=== PATIENT | male | born 1940 | race Caucasian/White ===

== ENCOUNTER 2019-12-06 03:09 | Outpatient (CLI) | payer MEDICARE, SELFPAY ==
[2019-12-07 14:41] LABS: SARS-CoV-2 RNA PCR Negative
== END 2019-12-06 03:10 | disposition home or self-care (01) ==
LOC: ANHCOVIDDT 03:09
PROVIDERS: PCP Family Medicine; Visit Provider Internal Medicine Gastroenterology
DX: Z01.818 Encounter for other preprocedural examination (principal); Z11.59 Encounter for screening for other viral diseases
CPT/HCPCS: 87635; C9803; U0003

== ENCOUNTER 2019-12-08 02:51 | Day surgery (SDC) | payer MEDICARE, SELFPAY ==
[2019-12-01 12:00] VITALS: BMI 31.8
[2019-12-08 08:45] VITALS: BP 177/75; PULSE 69; RESP 20; TEMP 36.4; O2SAT 100
[2019-12-08] MEDS: LACTATED RINGERS 1,000 ML 150 ML IV CONT (08:52)
--- NOTE | 2019-12-08 09:08 | WPDANESEPPF ---
Anes - Initial Pre Proc Eval Procedure: Operation Date: 12/08/19 09:00 Proposed Procedures p Esophagogastroduodenoscopy - Carlo Martinez DO Date/Time: 12/08/19 09:08 Surgeon: Carlo Martinez DO Pre Op Diagnosis: dysphagia Patient Data Age: 79 Gender: M Height: 5 ft 5 in Weight: 84 kg Last Vital Signs Temp 97.6 F 12/08/19 08:45 Pulse 69 12/08/19 08:45 Resp 20 12/08/19 08:45 BP 177/75 H 12/08/19 08:45 Pulse Ox 100 12/08/19 08:45 Allergies Allergy/AdvReac Type Severity Reaction Status Date / Time morphine Allergy Unknown Unknown Verified 12/08/19 09:00 Home Medications Medication Instructions Recorded Confirmed Type aspirin 81 mg tablet,delayed 81 mg PO DAILY 03/23/19 12/01/19 History release carbamazepine 200 mg 200 mg PO Q12H 03/23/19 12/08/19 History capsule,extended release [id number] docusate sodium 100 mg capsule 200 mg PO HS 03/23/19 12/01/19 History levothyroxine 50 mcg tablet 50 mcg PO DAILY 03/23/19 12/01/19 History pantoprazole 40 mg tablet,delayed 40 mg PO QAM 03/23/19 12/01/19 History release albuterol sulfate 90 mcg/actuation 2 inhalation INHALATION Q4H PRN 05/23/19 12/01/19 Rx aerosol inhaler #18 gm budesonide-formoterol HFA 160 2 puff INHALATION Q12H 09/20/19 12/01/19 History mcg-4.5 mcg/actuation aerosol inhaler hydroxychloroquine 200 mg tablet 400 mg PO DAILY #60 tablet 11/18/19 12/01/19 Rx ropinirole See Rx Instructions .ROUTE .COMPLEX 12/01/19 12/01/19 History Patient hx anesthesia problems: none Family hx anesthesia problems: none PMFSH Social History Social History Social History: Smoking status: Former smoker Tobacco type: cigars Smoking end date: 05/11/14 Alcohol intake: never Anes - Eval Final PreProcedure Day of Procedure 12/08/19 09:08 Patient weight: overweight Heart: regular rate and rhythm Lungs: clear to auscultation Airway: Mallampati scale class III Neurological: alert and oriented Last oral intake: >/= 8 hours ASA classification: III Emergent: no Anesthetic plan: proceed Anesthesia type and monitoring: general GIVS and standard monitoring Informed Consent: The patient's anesthetic plan and its attendant risks and benefits were discussed with the patient/family/POA. Questions were solicited and answers provided to the satisfaction of the patient/family/POA.
--- NOTE | 2019-12-08 09:22 | P.HP_ITS ---
H&P: HPI History of Present Illness Chief complaint: dysphagia Narrative: Reason for visit EGD. This very pleasant gentleman seen in consultation request of the primary physician. Impression: very pleasant gentleman with a history of reflux disease. He is status post Osvaldo fundoplication. He has developed a cough after intake of solids. He is here for endoscopic evaluation to assess for underlying ring or stricture. MADDIE. RLS. CAD. Status post CABG x4. COPD. RA. Neuropathy. Hypothyroidism. Recommendation: EGD. History: This very pleasant gentleman is being evaluated for a history of reflux disease. He is status post Osvaldo fundoplication. The patient reports coughing after the intake of solid food. He then has to drink liquids in order to alleviate the coughing. He denies any nausea, vomiting, hematemesis, dysphagia And odynophagia. He is here for an endoscopic evaluation to assess for underlying renal stricture or other esophageal problem. Physical examination: General: very pleasant patient in no acute distress. HEENT: Head was normocephalic sclerae is clear mouth without masses neck was supple. Heart: Rate rhythm regular without S3 or S4. Lungs: CTA. Abdomen: Soft with no guarding or rigidity. Bowel sounds were active. Neurologic: Cranial nerves 2 through 12 intact. No focal defects. No clonus. Musculoskeletal system: Revealed no joint tenderness or swelling no muscle atrophy. Extremities: Reveal no significant edema. Skin: Warm and dry with normal turgor. Mental status: intact. Patient is alert and oriented. Review of Systems Review of Systems: All systems reviewed & are unremarkable except as noted in HPI and below [facility] Social History Social History Social History: Smoking status: Former smoker Tobacco type: cigars Smoking end date: 05/11/14 Alcohol intake: never Meds Home Medications and Allergies Home Medications Medication Instructions Recorded Confirmed Type aspirin 81 mg tablet,delayed 81 mg PO DAILY 03/23/19 12/01/19 History release carbamazepine 200 mg 200 mg PO Q12H 03/23/19 12/08/19 History capsule,extended release [id number] docusate sodium 100 mg capsule 200 mg PO HS 03/23/19 12/01/19 History levothyroxine 50 mcg tablet 50 mcg PO DAILY 03/23/19 12/01/19 History pantoprazole 40 mg tablet,delayed 40 mg PO QAM 03/23/19 12/01/19 History release albuterol sulfate 90 mcg/actuation 2 inhalation INHALATION Q4H PRN 05/23/19 12/01/19 Rx aerosol inhaler #18 gm budesonide-formoterol HFA 160 2 puff INHALATION Q12H 09/20/19 12/01/19 History mcg-4.5 mcg/actuation aerosol inhaler hydroxychloroquine 200 mg tablet 400 mg PO DAILY #60 tablet 11/18/19 12/01/19 Rx ropinirole See Rx Instructions .ROUTE .COMPLEX 12/01/19 12/01/19 History Allergies Allergy/AdvReac Type Severity Reaction Status Date / Time morphine Allergy Unknown Unknown Verified 12/08/19 09:00 Vital Signs Vital Signs - 24 hr 12/08/19 08:45 Temperature 36.4 C Pulse Rate 69 Respiratory Rate 20 Blood Pressure 177/75 H Pulse Oximetry 100
[2019-12-08 09:40] VITALS: BP 133/74; PULSE 60; RESP 22; O2SAT 94
[2019-12-08 09:50] VITALS: BP 136/74; PULSE 57; RESP 21; O2SAT 98
[2019-12-08 10:00] VITALS: BP 164/88; PULSE 56; RESP 20; O2SAT 99
== END 2019-12-08 10:22 | disposition home or self-care (01) ==
PROVIDERS: PCP Family Medicine; Visit Provider Internal Medicine Gastroenterology
PROC: 0DJ08ZZ Inspection of Upper Intestinal Tract, Via Natural or Artificial Opening Endoscopic (ICD-10-PCS; CPT 43235; principal; 2019-12-08 09:00)
DX: K21.0 Gastro-esophageal reflux disease with esophagitis (principal); K44.9 Diaphragmatic hernia without obstruction or gangrene; K22.70 Barrett's esophagus without dysplasia; K29.50 Unspecified chronic gastritis without bleeding; K31.7 Polyp of stomach and duodenum; Z98.890 Other specified postprocedural states; J44.9 Chronic obstructive pulmonary disease, unspecified; I50.9 Heart failure, unspecified; Z87.891 Personal history of nicotine dependence
CPT/HCPCS: 43239; 88305; J2704; J7120

== ENCOUNTER 2019-12-16 09:12 | Outpatient (CLI) | payer MEDICARE, SELFPAY ==
--- NOTE | ~2019-12-16 | XR_ITS ---
XR UGIAC w barium swallow DATE: 12/16/2019 10:02 INDICATION: Gastroesophageal reflux TECHNIQUE: Transabdominal and air-contrast upper gastrointestinal series 3.8 minutes fluoroscopy time 71.74 DAP 120 images COMPARISON: 12/02/2016 upper gastrointestinal series and esophagram FINDINGS: There is cricopharyngeus muscle dysfunction. There is a small Zenker's diverticulum. There is a small sliding hiatal hernia. Status post Osvaldo fundoplication. There is spontaneous gastr oesophageal reflux up to the thoracic inlet. No stricture, mucosal fold thickening, erosion, ulceration or intraluminal mass lesion of the esophag us, stomach or duodenum is detected. The proximal small bowel mucosal pattern is normal. Status post sternotomy. IMPRESSION: Small sliding hiatal hernia with spontaneous gastroesophageal reflux up to the thoracic i nlet Status post Osvaldo fundoplication Cricopharyngeus muscle dysfunction with associated small Zenker's diverticulum Reviewed, dictated and finalized at [facility]. Reviewed, dictated and finalized at location [facility]. 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
== END 2019-12-16 09:13 | disposition home or self-care (01) ==
PROVIDERS: PCP Family Medicine; Visit Provider Internal Medicine Gastroenterology
DX: K21.0 Gastro-esophageal reflux disease with esophagitis (principal); K44.9 Diaphragmatic hernia without obstruction or gangrene
CPT/HCPCS: 74246

== ENCOUNTER 2020-05-22 10:50 | Outpatient (CLI) | payer MEDICARE, SELFPAY ==
--- NOTE | ~2020-05-22 | XR_ITS ---
EXAMINATION: XR chest 2V EXAM DATE: 05/22/2020 11:03 INDICATION: Acute on chronic diastolic heart failure . TECHNIQUE: Frontal and lateral projections of the chest obtained and reviewed. Comparison is made to prior examination from 01/25/2019. FINDINGS: Heart is upper limits of normal in size. There is mild pulmonary vascular congestion. Ster notomy wires are present without findings to suggest sternal dehiscence. No confluent consolidation, pneumothorax or pleural effusion suspected. There are mild bony degenerative changes. Patient has dif fuse idiopathic skeletal hyperostosis (DISH). IMPRESSION: Mild pulmonary vascular congestion. Reviewed, dictated and finalized at location [facility]. 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
== END 2020-05-22 10:51 | disposition home or self-care (01) ==
PROVIDERS: PCP Internal Medicine; Visit Provider Nurse Practitioner Adult Health
DX: I50.33 Acute on chronic diastolic (congestive) heart failure (principal)
CPT/HCPCS: 71046

== ENCOUNTER 2020-07-05 13:22 | Emergency (ER) | payer MEDICARE, SELFPAY ==
--- NOTE | ~2020-07-05 | XR_ITS ---
EXAMINATION: XR shoulder LT min 2V EXAM DATE: 07/05/2020 14:01 INDICATION: Initial encounter following injury, with pain of the left shoulder. Soft tissue laceratio n. TECHNIQUE: The following left shoulder projections obtained: frontal projection with internal rotatio n, frontal projection with external rotation, Grashey, and scapular Y view (4+ views). Comparison is made to prior examination from 09/03/2014. FINDINGS: No evidence of left shoulder rotator cuff calcific tendinosis. There is mild glenohumeral , moderate acromioclavicular joint primary osteoarthritis. There are no acute fractures or dislocatio ns identified. There is no subcutaneous gas. The soft tissue is unremarkable. Sternotomy wires. IMPRESSION: 1. Left shoulder exam without acute osseous findings. 2. Mild to moderate osteoarthritis. Reviewed, dictated and finalized at location [facility]. 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
--- NOTE | ~2020-07-05 | XR_ITS ---
EXAMINATION: XR elbow LT min 3V EXAM DATE: 07/05/2020 14:01 INDICATION: Initial encounter following injury, with pain of the left elbow. TECHNIQUE: Left elbow frontal, lateral with flexion, and oblique projections obtained and reviewed. C omparison is made to prior examination from 09/03/2014. FINDINGS: Left elbow anterior humeral line intact. Moderate sized posterior olecranon spur. There is mild elbow primary osteoarthritis. There are no acute fractures or dislocations identified. There is no subcutaneous gas. The soft tissue is unremarkable. There are no radiopaque foreign bodies. IMPRESSION: 1. No acute left elbow findings. 2. Mild osteoarthritis. 3. Olecranon spur. Reviewed, dictated and finalized at location B. 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
[2020-07-05 13:29] VITALS: BP 141/65; PULSE 79; RESP 18; TEMP 37; O2SAT 97
--- NOTE | 2020-07-05 13:53 | PC.NURSE ---
Pt to xray.
--- NOTE | 2020-07-05 14:24 | ED.FALL ---
HPI - Fall General Chief Complaint: Fall Stated Complaint: Fall Time Seen by Provider: 07/05/20 13:28 Source: patient Mode of arrival: ambulatory Limitations: no limitations History of Present Illness HPI Narrative: 80-year-old with a history of CAD, CHF, RA here with complaints of left shoulder pain. Patient states that he was moving a mattress accidentally lost his balance and fell on his left shoulder. He denies any head injury or neck pain. No history of loss of consciousness. MD complaint: fall Onset (ago): hour(s) (1) Fall from: standing Fall witnessed: yes, by family Place fall occurred: home Loss of consciousness: none Symptoms prior to fall: none Context: tripped/slipped Location of injury - extremities: Left: shoulder and elbow Severity: moderate Quality: aching Associated symptoms (after fall): denies Related Data Home Medications Medication Instructions Recorded Confirmed aspirin 81 mg tablet,delayed 81 mg PO DAILY 03/23/19 06/22/20 release carbamazepine 200 mg 200 mg PO Q12H 03/23/19 06/22/20 capsule,extended release [id number] docusate sodium 100 mg capsule 200 mg PO HS 03/23/19 06/22/20 levothyroxine 50 mcg tablet 50 mcg PO DAILY 03/23/19 06/22/20 pantoprazole 40 mg tablet,delayed 40 mg PO QAM 03/23/19 06/22/20 release ropinirole See Rx Instructions .ROUTE .COMPLEX 12/01/19 06/22/20 tamsulosin 0.4 mg capsule 0.4 mg PO DAILY 04/24/20 06/22/20 gabapentin 300 mg capsule 300 mg PO TID 05/15/20 06/22/20 albuterol sulfate 90 mcg/actuation 1 puff INHALATION Q4H PRN 06/22/20 06/22/20 aerosol inhaler Allergies Allergy/AdvReac Type Severity Reaction Status Date / Time morphine Allergy Mild Flushing Verified 07/05/20 13:35 Review of Systems Review of Systems: All systems reviewed & are unremarkable except as noted in HPI and below Constitutional: Constitutional: Reports no additional constitutional complaints Eyes: Eyes: Reports no additional eye complaints ENT: Reports system reviewed and no additional complaints, except as documented Cardiovascular: Cardiovascular: Reports no additional cardiovascular complaints Respiratory: Respiratory: Reports no additional respiratory complaints Gastrointestinal: Gastrointestinal: Reports no additional gastrointestinal complaints Musculoskeletal: Musculoskeletal: Reports as per HPI Neurologic: Reports system reviewed and no additional complaints, except as documented [facility] Past Medical History Medical History Arthritis Carpal tunnel syndrome on both sides CHF (congestive heart failure) Chronic obstructive pulmonary disease Coronary artery disease 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 Obstructive sleep apnea RLS (restless legs syndrome) Surgical History Surgical History History of four vessel coronary artery bypass graft Family History Family History Father Acute myocardial infarction, Onset Age: 84 Family history of coronary artery disease, Onset Age: 84 Mother Carcinoma of colon, Onset Age: 64 Sibling Family history of coronary artery disease Carcinoma of colon Social History Social History Social History: on 08/27/19 Smoking status: Former smoker Tobacco type: cigars Smoking end date: 05/11/14 Alcohol intake: never Exam Narrative: Exam Narrative: GENERAL: Well-appearing, well-nourished, and in no acute distress. HEAD: Normocephalic, atraumatic. EYES: PERRLA and EOMI. NECK: Supple. CHEST: Clear to auscultation. No respiratory distress. HEART: Regular rate and rhythm. No murmur heard. Normal peripheral pulses. ABDOMEN: Soft, nontender, nondistended, no
[2020-07-05] MEDS: HYDROcodone/acetaminophen (*CRX) 5-325 MG TABLET 1 TAB PO (14:36)
[2020-07-05 14:38] VITALS: BP 116/73; PULSE 63; O2SAT 100
[2020-07-05] MEDS: TETANUS,DIPHTHERIA,AC PERTUSSIS ADULT (0.5 ML) BOOSTRIX IM (14:57)
[2020-07-05 15:18] VITALS: BP 160/69; PULSE 83; RESP 18; O2SAT 100
== END 2020-07-05 15:19 | disposition home or self-care (01) ==
PROVIDERS: Emergency Provider Family Medicine; PCP Internal Medicine
DX: S40.012A Contusion of left shoulder, initial encounter (principal); S51.002A Unspecified open wound of left elbow, initial encounter; I25.10 Atherosclerotic heart disease of native coronary artery without angina pectoris; I50.9 Heart failure, unspecified; M06.9 Rheumatoid arthritis, unspecified; Z79.82 Long term (current) use of aspirin; M19.90 Unspecified osteoarthritis, unspecified site; M47.812 Spondylosis without myelopathy or radiculopathy, cervical region; M47.816 Spondylosis without myelopathy or radiculopathy, lumbar region; G47.33 Obstructive sleep apnea (adult) (pediatric); G25.81 Restless legs syndrome; Z87.891 Personal history of nicotine dependence; M19.012 Primary osteoarthritis, left shoulder; Z23 Encounter for immunization; W18.39XA Other fall on same level, initial encounter
CPT/HCPCS: 73030; 73080; 90471; 90715; 99284; A4565; A9270

== ENCOUNTER 2020-08-06 12:02 | Outpatient (CLI) | payer MEDICARE, SELFPAY ==
--- NOTE | ~2020-08-06 | XR_ITS ---
EXAMINATION: XR hand BI arthritis min 3V EXAM DATE: 08/06/2020 12:25 INDICATION: M06.09 - Rheumatoid arthritis without rheumatoid factor,. Bilateral hand pain. TECHNIQUE: Right hand frontal, lateral and oblique projections obtained and reviewed. Left hand fron maycol, lateral and oblique projections obtained and reviewed. Catchers projection of both hands. Compar ezra is made to prior examination from 03/06/2019. FINDINGS: There is mild to moderate bilateral hand polyarticular interphalangeal primary osteoarthrit is. There are no bony erosions identified. There are no acute fractures or dislocations identified. There is no subcutaneous gas. The soft tissue is unremarkable. There are no radiopaque foreign kamini dies. There is no significant interval change. IMPRESSION: Mild to moderate bilateral interphalangeal osteoarthritis. Reviewed, dictated and finalized at location A.
== END 2020-08-06 12:03 | disposition home or self-care (01) ==
PROVIDERS: PCP Internal Medicine; Visit Provider Internal Medicine
DX: M06.09 Rheumatoid arthritis without rheumatoid factor, multiple sites (principal)
CPT/HCPCS: 73130

== ENCOUNTER 2020-09-14 15:32 | Emergency (ER) | payer MEDICARE, SELFPAY ==
--- NOTE | ~2020-09-14 | XR_ITS ---
EXAMINATION: XR chest 1V portable DATE: 09/14/2020 18:12 INDICATION: Right lower limb swelling. TECHNIQUE: A single frontal view of the chest was obtained. COMPARISON: Chest 2 views 05/22/2020 FINDINGS: The chest demonstrates clear lungs without pneumonia, pleural effusion, or pneumothorax. Th e heart size is normal. Median sternotomy wires and mediastinal surgical clips are seen, likely from prior coronary artery bypass grafting. IMPRESSION: 1. No acute cardiopulmonary disease. Reviewed, dictated and finalized at location [facility].
--- NOTE | ~2020-09-14 | US_ITS ---
EXAMINATION: US venous doppler LE RT DATE: 09/14/2020 17:54 INDICATION: Right lower limb pain. TECHNIQUE: Grayscale ultrasound images without and with compression and Doppler ultrasound images of the right lower extremity veins were obtained. COMPARISON: Ultrasound 05/23/2017 FINDINGS: The visualized portions of right common femoral vein, profunda (deep) femoral vein, femoral vein, pop liteal vein, peroneal veins, posterior tibial veins, and greater saphenous vein outflow are patent. IMPRESSION: 1. No deep venous thrombosis. Reviewed, dictated and finalized at location A.
[2020-09-14 16:06] VITALS: BP 137/67; PULSE 61; RESP 18; TEMP 36.3; O2SAT 98
[2020-09-14 17:51] LABS: Basophils Percent Auto 0.6 % (0.2-1.2); Eosinophils Absolute Auto 0.2 K/mm3 (0-0.3); Eosinophils Percent Auto 4.3 % (0-4.4); Hematocrit 41.5 % (42.0-52.0); Hemoglobin 14.1 g/dL (14.0-18.0); Immature Granulocyte Absolute 0.02 K/mm3 (0.00-0.031); Immature Granulocyte Percent A 0.4 % (0-0.5); Lymphocytes Absolute Auto 0.96 K/mm3 (0.9-3.2); Lymphocytes Percent Auto 20.5 % (18.3-44.2); Mean Corpuscular Hemoglobin 32.6 pg (26-34); Mean Corpuscular Volume 95.8 fl (80-100); Mean Platelet Volume 10.4 fl (7.4-10.4); Monocytes Absolute Auto 0.6 K/mm3 (0.1-0.6); Monocytes Percent Auto 13.2 % (2.6-8.5); Neutrophils Absolute Auto 2.9 K/mm3 (1.3-6.7); Platelet Count Result 156 k/mm3 (150-375); Red Blood Count 4.33 M/mm3 (4.6-6.20); Red Cell Distribution Width 13.3 % (11.5-14.5); White Blood Count 4.7 K/mm3 (4.5-10.0)
[2020-09-14 18:00] LABS: INR 0.9; Prothrombin Time 13.2 Seconds (11.1-14.7)
[2020-09-14 18:01] LABS: Partial Thromboplastin Time 30.1 SECONDS (22.3-36.8)
[2020-09-14 18:03] LABS: Anion Gap 3 mmol/L (8-16); Blood Urea Nitrogen 22 mg/dL (9-20); CRP 0.7 mg/dL (<1.0); Calcium 8.9 mg/dL (8.4-10.2); Carbon Dioxide 29 mmol/L (22-30); Chloride 105 mmol/L (98-107); Estimated CRCL calculation 53 ml/min; Estimated Glomerular Filt Rate > 60; Glucose 112 mg/dL (75-110); Potassium 4.2 mmol/L (3.4-5.0); Sodium 137 mmol/L (137-145)
[2020-09-14] MEDS: ceFAZolin 2 GM/D5W 50 ML 2 GM/50 ML BAG IVPB (18:04)
[2020-09-14 18:10] LABS: NT Pro B Type Natriuretic Pept 196 pg/mL (5-100)
--- NOTE | 2020-09-14 18:19 | ED.GENADULT ---
HPI - General Adult General Chief complaint: Skin/Abscess/Foreign Body Stated complaint: leg wounds Time Seen by Provider: 09/14/20 17:18 Source: patient, family, RN notes reviewed and old records reviewed Mode of arrival: ambulatory Limitations: no limitations History of Present Illness HPI narrative: Patient is an 80-year-old male who presents to emergency department for evaluation of wound to the right anterior correa patient notes he has scraped his leg on a piece of wood a week ago and over the last 2 days has had some redness and swelling around the wound patient has chronic swelling in this extremity. Patient denies any fever chills nausea vomiting. Patient has had to be up and doing more activity secondary to he is currently moving out of his house. Patient denies any fever chills nausea vomiting. Related Data Home Medications Medication Instructions Recorded Confirmed aspirin 81 mg tablet,delayed 81 mg PO DAILY 03/23/19 07/31/20 release docusate sodium 100 mg capsule 200 mg PO HS 03/23/19 07/31/20 levothyroxine 50 mcg tablet 50 mcg PO DAILY 03/23/19 07/31/20 pantoprazole 40 mg tablet,delayed 40 mg PO QAM 03/23/19 07/31/20 release tamsulosin 0.4 mg capsule 0.4 mg PO DAILY 04/24/20 07/31/20 gabapentin 300 mg capsule 300 mg PO TID 05/15/20 07/31/20 albuterol sulfate 90 mcg/actuation 1 puff INHALATION Q4H PRN 06/22/20 07/31/20 aerosol inhaler furosemide 40 mg tablet 40 mg PO QAM 07/17/20 07/31/20 ropinirole 1 mg tablet 1.5 mg PO QID tablet 07/17/20 07/31/20 Allergies Allergy/AdvReac Type Severity Reaction Status Date / Time morphine AdvReac Mild Flushing Verified 09/14/20 17:15 Review of Systems Review of Systems: All systems reviewed & are unremarkable except as noted in HPI and below PMFSH Past Medical History Medical History Arthritis Carpal tunnel syndrome on both sides CHF (congestive heart failure) Chronic obstructive pulmonary disease Coronary artery disease 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 Obstructive sleep apnea RLS (restless legs syndrome) Surgical History Surgical History History of four vessel coronary artery bypass graft Family History Family History Father Acute myocardial infarction, Onset Age: 84 Family history of coronary artery disease, Onset Age: 84 Mother Carcinoma of colon, Onset Age: 64 Sibling Family history of coronary artery disease Carcinoma of colon Social History Social History Social History: on 08/27/19 Smoking status: Former smoker Tobacco type: cigars Smoking end date: 05/11/14 Alcohol intake: never Exam Narrative: Exam Narrative: GENERAL: Well-appearing, well-nourished, and in no acute distress. HEAD: Normocephalic, atraumatic. EYES: PERRLA and EOMI. ENT: Nares clear, no rhinorrhea or epistaxis. Mucous membranes moist. CHEST: Clear to auscultation. No respiratory distress. No wheezes rales or rhonchi HEART: Regular rate and rhythm. No murmur heard. Normal peripheral pulses. ABDOMEN: Soft, nontender, nondistended EXTREMITIES: Normal range of motion. 2+ edema of the right leg SKIN: Warm, dry, no rash. 1 cm open wound to the right correa no drainage slight erythema surrounding the wound NEURO: No focal deficits. Alert and oriented x3. Neurovascularly intact. Capillary refill less than 2 seconds PSYCH: Normal mood and affect. Course Course Emergency Course: Patient is an 80-year-old male who presents to emergency department for evaluation of wound to the right correa no high risk changes in the blood work or imaging pulses intact. Patient neurovascularly intact in no
[2020-09-14 19:54] VITALS: BP 131/64; PULSE 63; RESP 18; O2SAT 97
--- NOTE | 2020-09-14 19:55 | PC.NURSE ---
right leg dressed withe vinny duffy
--- NOTE | 2020-09-14 20:57 | PC.NURSE ---
verbal order from rafael to cancel eswab. pt d/c at this time. swab not done.
== END 2020-09-14 19:56 | disposition home or self-care (01) ==
PROVIDERS: Emergency Medicine Emergency Medical Services; Emergency Provider Emergency Medicine; PCP Internal Medicine
DX: L03.115 Cellulitis of right lower limb (principal); I50.9 Heart failure, unspecified; J44.9 Chronic obstructive pulmonary disease, unspecified; I25.10 Atherosclerotic heart disease of native coronary artery without angina pectoris; G47.33 Obstructive sleep apnea (adult) (pediatric); G25.81 Restless legs syndrome; M19.90 Unspecified osteoarthritis, unspecified site; M47.812 Spondylosis without myelopathy or radiculopathy, cervical region; M47.816 Spondylosis without myelopathy or radiculopathy, lumbar region; Z79.82 Long term (current) use of aspirin; Z87.891 Personal history of nicotine dependence; Z95.1 Presence of aortocoronary bypass graft; M79.89 Other specified soft tissue disorders
CPT/HCPCS: 36415; 71045; 80048; 83880; 85025; 85610; 85730; 86140; 93971; 96365; 99285; J0690

== ENCOUNTER 2020-11-23 09:06 | Outpatient (CLI) | payer MEDICARE, SELFPAY ==
--- NOTE | 2020-12-10 14:42 | WPDSLEEPSTUD ---
Sleep Study Date of Study: 11/23/20 Ordering Provider: Nehal Price MD Interpreting Physician: Nehal Price MD Sleep Study Type: CPAP Titration Height: 1.68 m Weight: 86.183 kg Body Mass Index: 30.7 Neck Circumference (inches): 17 [place]: 21 Reason for Sleep Study hypersomnolence Sleep History Kellee Bearden is an 80 year old man with known obstructive sleep apnea with 3 studies in 2014, none with an optimal pressure. June 28, 2014 he had a CPAP titration with a final pressure of 10 cm but it was not optimal. On July 12, 2014 he had a difficult BiPAP titration with the highest pressure achieved 16/10, lowest saturation 92% and an AHI of 7.9. On July 31, 2014 he had severe obstructive sleep apnea with an AHI of 49.5, multiple central events, decreased sleep efficiency and recommendation for ASV. He has been using BiPAP at home going to bed at 10:30 pm, waking at 2:30 am to take his medication for restless legs. 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 Obstructive sleep apnea RLS (restless legs syndrome) Surgical History Surgical History History of four vessel coronary artery bypass graft Family History Family History Father Acute myocardial infarction, Onset Age: 84 Family history of coronary artery disease, Onset Age: 84 Mother Carcinoma of colon, Onset Age: 64 Sibling Family history of coronary artery disease Carcinoma of colon Social History Social History Social History: on 08/27/19 Smoking status: Former smoker Tobacco type: cigars Smoking end date: 05/11/14 Alcohol intake: never Medications Home Medications Medication Instructions Recorded Confirmed Type aspirin 81 mg tablet,delayed 81 mg PO DAILY 03/23/19 12/10/20 History release docusate sodium 100 mg capsule 200 mg PO HS 03/23/19 12/10/20 History pantoprazole 40 mg tablet,delayed 40 mg PO QAM 03/23/19 12/10/20 History release tamsulosin 0.4 mg capsule 0.4 mg PO DAILY 04/24/20 12/10/20 History gabapentin 300 mg capsule 300 mg PO TID 05/15/20 12/10/20 History albuterol sulfate 90 mcg/actuation 1 puff INHALATION Q4H PRN 06/22/20 12/10/20 History aerosol inhaler ropinirole 1 mg tablet 1.5 mg PO QID tablet 07/17/20 12/10/20 History hydroxychloroquine 200 mg tablet 400 mg PO DAILY #60 tablet 08/14/20 12/10/20 Rx carbamazepine 200 mg tablet 200 mg PO Q12H #60 tablet 09/14/20 12/10/20 Rx eszopiclone 2 mg tablet 2 mg PO QHS #1 tablet 10/22/20 12/10/20 Rx levothyroxine 50 mcg tablet 50 mcg PO DAILY #90 tablet 11/06/20 12/10/20 Rx Sleep Procedure This test was performed using the [employer] multiple channel system including EOG, EEG, submental EMG, EKG, nasal and oral airflow using thermistors and nasal pressure sensors, chest and abdominal belts for body position data, and pulse oximetry. Video monitoring was also performed. The study was scored using [facility] guidelines. The patient was started on CPAP using a medium ( maybe a large one, size was different on the written record compared to the typed note) ResMed Quattro full face mask and heated humidifier. He was not able to tolerate CPAP pressures of 5 cm, 6 cm, or 10 cm during the physical testing supervisor process; he previously wore BiPAP at home. He sleeps on his right side at home so started the test in the right lateral position. He took a sleeping pill, eszopiclone 2 mg a t the start of the test, and started with bilevel at 8/4 which was gradually
[2020-12-12 13:46] VITALS: BMI 30.7
== END 2020-11-24 06:10 | disposition home or self-care (01) ==
LOC: ANHCSM 09:07
PROVIDERS: PCP Internal Medicine; Visit Provider Internal Medicine Critical Care Medicine
DX: G47.33 Obstructive sleep apnea (adult) (pediatric) (principal)
CPT/HCPCS: 95811

== ENCOUNTER 2021-03-11 01:44 | Day surgery (SDC) | payer MEDICARE, SELFPAY ==
[2021-02-20 15:18] VITALS: BMI 31.4
[2021-03-11 08:30] VITALS: BP 146/55; PULSE 64; RESP 18; TEMP 36.7; O2SAT 98
[2021-03-11] MEDS: LACTATED RINGERS 1,000 ML 150 ML IV CONT (08:33)
--- NOTE | 2021-03-11 08:35 | WPDANESEPPF ---
Anes - Initial Pre Proc Eval Procedure: Operation Date: 03/11/21 09:45 Proposed Procedures p Esophagogastroduodenoscopy - Caio Padilla MD Date/Time: 03/11/21 08:35 Surgeon: Caio Paidlla MD Pre Op Diagnosis: hx of marin's esophagus, dysphagia Patient Data Age: 81 Gender: M Height: 1.63 m Weight: 85 kg Last Vital Signs Temp 36.7 C 03/11/21 08:30 Pulse 64 03/11/21 08:30 Resp 18 03/11/21 08:30 BP 146/55 H 03/11/21 08:30 Pulse Ox 98 03/11/21 08:30 Allergies Allergy/AdvReac Type Severity Reaction Status Date / Time morphine AdvReac Mild Flushing Verified 03/11/21 08:29 Home Medications Medication Instructions Recorded Confirmed Type aspirin 81 mg tablet,delayed 81 mg PO DAILY 03/23/19 03/11/21 History release docusate sodium 100 mg capsule 200 mg PO HS 03/23/19 03/11/21 History tamsulosin 0.4 mg capsule 0.4 mg PO DAILY 04/24/20 03/11/21 History gabapentin 300 mg capsule 300 mg PO TID 05/15/20 03/11/21 History albuterol sulfate 90 mcg/actuation 1 puff INHALATION Q4H PRN 06/22/20 03/11/21 History aerosol inhaler ropinirole 1 mg tablet 1.5 mg PO QID PRN tablet 07/17/20 03/11/21 History carbamazepine 200 mg tablet 200 mg PO Q12H #60 tablet 09/14/20 03/11/21 Rx levothyroxine 50 mcg tablet 50 mcg PO DAILY #90 tablet 11/06/20 03/11/21 Rx bumetanide 1 mg tablet 1 mg PO DAILY 12/17/20 03/11/21 History carbidopa ER 25 mg-levodopa 100 mg 1 tablet PO TID 12/17/20 03/11/21 History tablet,extended release famotidine 10 mg tablet 10 mg PO BID tablet 12/17/20 03/11/21 History nitroglycerin 0.4 mg sublingual 0.4 mg SUBLINGUAL Q5M PRN 12/17/20 03/11/21 History tablet pantoprazole 40 mg tablet,delayed 40 mg PO QAM #90 tablet 01/09/21 03/11/21 Rx release hydroxychloroquine 200 mg tablet 400 mg PO DAILY #180 tablet 02/12/21 03/11/21 Rx Patient hx anesthesia problems: other (slow to awaken) Family hx anesthesia problems: none Results Review: All pre-operative results and documents have been reviewed as part of the pre-operative evaluation. [facility] Past Medical History Medical History Arthritis Barretts esophagus Carpal tunnel syndrome on both sides CHF (congestive heart failure) Chronic obstructive pulmonary disease Coronary artery disease Degenerative joint disease of cervical and lumbar spine Gastroesophageal reflux disease Generalized osteoarthritis of multiple sites Hiatal hernia with gastroesophageal reflux disease and esophagitis Mixed restrictive and obstructive lung disease Obstructive sleep apnea RLS (restless legs syndrome) Surgical History Surgical History History of four vessel coronary artery bypass graft Family History Family History Father Acute myocardial infarction, Onset Age: 84 Family history of coronary artery disease, Onset Age: 84 Mother Carcinoma of colon, Onset Age: 64 Sibling Family history of coronary artery disease Carcinoma of colon Social History Social History Social History: on 08/27/19 Smoking status: Former smoker Tobacco type: cigars Smoking end date: 05/11/14 Alcohol intake: never Substance use: never Substance use type: does not use Living arrangements: with family Additional living arrangements comments: WITH DAUGHTER Spiritual care concerns: No Anes - Eval Final PreProcedure Day of Procedure 03/11/21 08:35 Patient weight: obese Heart: regular rate and rhythm Lungs: decreased breath sounds Airway: Mallampati scale class II Neurological: other (alert) Last oral intake: >/= 8 hours ASA classification: III Emergent: no Anesthetic plan: proceed Anesthesia type and monitoring: general GIVS and standard monit
--- NOTE | 2021-03-11 09:16 | PM.HPGS ---
History of Present Illness History of Present Illness Consent: Risks, benefits, and alternatives have been discussed and questions answered. Patient agrees to proceed with procedure. Chief complaint: hx of marin's esophagus, dysphagia Narrative: Kellee Bearden is a 81 year old male with h/o Parkinson, oral dysphagia seeing speech therapy, also previous history of Marin's on ppi twice daily with famotidine. He had Modified Barium swallow at [facility] showed predominately oral phase dysfunction and trace aspiration on thin liquids. His last EGD was a year ago. EGD exam revealed gastritis with erosions, gastric polyp, recurring HH, and barretts esophagus Review of Systems Constitutional: Constitutional: Denies headache(s) and Denies weakness Eyes: Eyes: Denies blurry vision ENT: Reports Normal hearing present, Denies headache(s) and Denies neck pain Cardiovascular: Cardiovascular: Denies chest pain and Denies dyspnea Respiratory: Respiratory: Denies dyspnea Gastrointestinal: Gastrointestinal: Reports no additional gastrointestinal complaints Genitourinary: Genitourinary: Denies dysuria Musculoskeletal: Musculoskeletal: Denies neck pain Integumentary/Breasts: Skin/Breast: Denies dry skin Neurologic: Reports Normal hearing present, Denies headache(s) and Denies weakness Psychiatric: Psychiatric: Denies anxiety Endocrine: Endocrine: Denies change in body appearance Hematologic/Lymphatic: Hematologic/Lymphatic: Denies easy bleeding Allergic/Immunologic: Allergic/Immunologic: Denies urticaria PMFSH Past Medical History Medical History Arthritis Barretts esophagus Carpal tunnel syndrome on both sides CHF (congestive heart failure) Chronic obstructive pulmonary disease Coronary artery disease Degenerative joint disease of cervical and lumbar spine Gastroesophageal reflux disease Generalized osteoarthritis of multiple sites Hiatal hernia with gastroesophageal reflux disease and esophagitis Mixed restrictive and obstructive lung disease Obstructive sleep apnea RLS (restless legs syndrome) Surgical History Surgical History History of four vessel coronary artery bypass graft Family History Family History Father Acute myocardial infarction, Onset Age: 84 Family history of coronary artery disease, Onset Age: 84 Mother Carcinoma of colon, Onset Age: 64 Sibling Family history of coronary artery disease Carcinoma of colon Social History Social History Social History: on 08/27/19 Smoking status: Former smoker Tobacco type: cigars Smoking end date: 05/11/14 Alcohol intake: never Substance use: never Substance use type: does not use Living arrangements: with family Additional living arrangements comments: WITH DAUGHTER Spiritual care concerns: No Meds Home Medications and Allergies Home Medications Medication Instructions Recorded Confirmed Type aspirin 81 mg tablet,delayed 81 mg PO DAILY 03/23/19 03/11/21 History release docusate sodium 100 mg capsule 200 mg PO HS 03/23/19 03/11/21 History tamsulosin 0.4 mg capsule 0.4 mg PO DAILY 04/24/20 03/11/21 History gabapentin 300 mg capsule 300 mg PO TID 05/15/20 03/11/21 History albuterol sulfate 90 mcg/actuation 1 puff INHALATION Q4H PRN 06/22/20 03/11/21 History aerosol inhaler ropinirole 1 mg tablet 1.5 mg PO QID PRN tablet 07/17/20 03/11/21 History carbamazepine 200 mg tablet 200 mg PO Q12H #60 tablet 09/14/20 03/11/21 Rx levothyroxine 50 mcg tablet 50 mcg PO DAILY #90 tablet 11/06/20 03/11/21 Rx bumetanide 1 mg tablet 1 mg PO DAILY 12/17/20 03/11/21 History carbidopa ER 25 mg-levodopa 100 mg 1 tablet PO TID 12/17/20 03/11/21 History tablet,extended release
[2021-03-11 09:27] VITALS: BP 105/62; PULSE 53; RESP 17; O2SAT 98
[2021-03-11 09:37] VITALS: BP 116/71; PULSE 53; RESP 19; O2SAT 97
[2021-03-11 09:47] VITALS: BP 127/74; PULSE 52; RESP 15; O2SAT 98
== END 2021-03-11 09:58 | disposition home or self-care (01) ==
PROVIDERS: PCP Internal Medicine; Visit Provider Internal Medicine Gastroenterology
PROC: 0DJ08ZZ Inspection of Upper Intestinal Tract, Via Natural or Artificial Opening Endoscopic (ICD-10-PCS; CPT 43235; principal; 2021-03-11 09:45)
DX: R13.11 Dysphagia, oral phase (principal); K44.9 Diaphragmatic hernia without obstruction or gangrene; K21.00 Gastro-esophageal reflux disease with esophagitis, without bleeding; K22.70 Barrett's esophagus without dysplasia; K29.70 Gastritis, unspecified, without bleeding; M19.90 Unspecified osteoarthritis, unspecified site; G47.33 Obstructive sleep apnea (adult) (pediatric); G25.81 Restless legs syndrome; J44.9 Chronic obstructive pulmonary disease, unspecified; I25.10 Atherosclerotic heart disease of native coronary artery without angina pectoris; Z95.1 Presence of aortocoronary bypass graft; F17.290 Nicotine dependence, other tobacco product, uncomplicated; Z79.82 Long term (current) use of aspirin; Z79.51 Long term (current) use of inhaled steroids; E03.9 Hypothyroidism, unspecified; G20 Parkinson's disease; E66.9 Obesity, unspecified; Z68.32 Body mass index [BMI] 32.0-32.9, adult
CPT/HCPCS: 43239; 88305; J2704; J7120

== ENCOUNTER 2021-04-16 13:00 | Outpatient (RCR) | payer MEDICARE, SELFPAY ==
--- NOTE | 2021-03-27 16:55 | STOPEVAL ---
SPEECH THERAPY INITIAL EVALUATION: Thank you for referring Kellee Bearden to [facility].? The patient is scheduled to be seen for therapy? 1x/week for 3 weeks. Please review, sign, date and return this plan of care APPLE. I agree with and certify that the following plan of care is medically necessary. Referring Physician Date Attending Provider: PHYSICIAN NOT ON STAFF *ST Outpatient Evaluation Outpatient Past Medical History Past Medical History Source of Past Medical History Patient,Family/Significant Other,Recalled from Previous Visit, Confirmed with Patient/ Family Neurological History Hx Parkinson's Disease Yes Hx Other Neurological Disorders Yes: RESTLESS LEGS Cardiovascular History Hx Congestive Heart Failure Yes Hx Coronary Artery Bypass Graft Yes: 4 VESSEL CABG 2015; CLIPS IN CHEST Hx Coronary Artery Disease Yes Respiratory History Hx Chronic Obstructive Pulmonary Disease Yes: MILD (COPD) Hx Pleurisy Yes Hx Sleep Apnea Yes: CPAP Hx Other Respiratory Disorders Yes: UPPI 1983 Gastrointestinal History Hx Cholecystectomy Yes: 1993 Hx Esophageal Disorders Yes: MCLAUGHLIN'S ESOPHAGUS Hx Gastroesophageal Reflux Disease Yes Hx Hernia Yes: 1993 Hx Ulcer Yes Hx Other Gastrointestinal Disorders Yes: ASHLEIGH 1993 Genitourinary History Hx Benign Prostatic Hyperplasia Yes Musculoskeletal History Hx Arthritis Yes Hx Back Pain Yes Hx Orthopedic Surgery Yes: BACK SURGERY- LOW BACK / RIGHT KNEE CAP Hematological History Hx Hematological Disorders No Significant History Endocrine History Hx Hypothyroidism Yes HEENT History Hx Cataracts Yes: BILATERAL SURGERY 2015 Hx Tonsillectomy Yes Hx Dental Problems Yes: DENTURES FULL Hx Other HEENT Disorders Yes: GLOSOPHARNEAL R-EAR/ THROAT SURGERY 1988 Integumentary History Hx Skin Disorders No Significant History Reproductive History Hx Reproductive Disorders No Significant History Psychosocial History Hx Psychiatric Disorders No Significant History Pain History History of Any Previous or Ongoing No Significant History Instance of Pain Anesthesia History Hx Other Anesthesia Reactions Yes: SLOW TO WAKE UP Evaluation Information Problem Diagnosis difficulty swallowing Additional Evaluation Detail pt's difficulty started with coughing during meals; MBS completed at [facility] in November which revealed an occurrence
--- NOTE | 2021-04-16 14:16 | STOPEVAL ---
SPEECH THERAPY DISCHARGE: Thank you for referring Kellee Bearden to [facility].? The patient has been seen for 4 total sessions for education re swallow anatomy, training on HEP, strengthening of oral & pharyngeal structures to tolerate a regular diet. At this time, pt has achieved set goals but may continue as an aspiration risk due to Parkinson's Disease. No further ST is warranted at this time. Please review, sign, date and return this discharge APPLE. I agree with and certify that the following plan of care is medically necessary. Referring Physician Date Bedside Swallow Evaluation General Reports Dysphagia Yes Duration of Dysphagia approximately 1 year ago History of Related Medical Diagnosis Parkinson's Disease Related History pt was diagnosed with Parkinson disease last year History of Feeding Problems Weight Loss Reported Difficult Consistencies Unable to Identify Meal Observed Bedside Swallows History of Dysphagia No Other Factors Impacting Dysphagia Neurological Impairment History of Pneumonia No Intake Method Prior to Swallow Oral Evaluation Diet Prior to Swallow Evaluation Regular, Level 7 Liquid Consistency Prior to Swallow Thin (0) Evaluation Cognition During Swallowing Alert,Attentive Orthodontic/Dental Appliances Full Dentures, Lower,Full Dentures, Upper Consistency Thin Uncontrolled 1 Method of Presentation Cup Behaviors Observed Apparently Normal Swallow Occurrence of Coughing None Vocal Quality After Swallowing Clear Swallow Palpation Results Good Swallow Initiation,Strong Laryngeal Elevation Solid Consistency Uncontrolled 2 Other Swallow Amount cracker Method of Presentation Spoon Behaviors Observed Oral Residue Occurrence of Coughing None Vocal Quality After Swallowing Clear Swallow Palpation Results Good Swallow Initiation,Strong Laryngeal Elevation Pureed Consistency Method of Presentation Spoon Behaviors Observed Apparently Normal Swallow Occurrence of Coughing None Vocal Quality After Swallowing Clear Swallow Palpation Results Good Swallow Initiation,Strong Laryngeal Elevation Tolerance Tolerance For Swallow No Distress Alertness Awake/Safe Cooperativeness Calm,Cooperative Attention Attentive Awareness of Swallowing Problem Aware Postural Control Moves Independently Fatigability Safe Ability to Follow Directions Independent MASA Score 185 Recommendations Feeding Type Recommended Oral Food Consistency
== END 2021-04-17 17:06 | disposition home or self-care (01) ==
LOC: ANHST 13:00
PROVIDERS: PCP Internal Medicine
DX: G20 Parkinson's disease (principal); R13.10 Dysphagia, unspecified
CPT/HCPCS: 92507; 92526

== ENCOUNTER 2021-08-16 14:00 | Outpatient (RCR) | payer MEDICARE, SELFPAY ==
--- NOTE | 2021-06-06 15:02 | STOPEVAL ---
Thank you for referring Kellee Bearden to [facility].? The patient is scheduled to be seen for therapy? 1-2x/week for 4 weeks. Please review, sign, date and return this plan of care APPLE. Please review Plan of Care which includes VitalStim, neuromuscular electrical stimulation to the throat to increase the strength of the swallow. If this is contra-indicated, please cross out or indicate otherwise on the plan of care that VitalStim should not be pursued. Thank you. I agree with and certify that the following plan of care is medically necessary. Referring Physician Date Attending Provider: Ochoa Chau Source of Past Medical History Patient Neurological History Hx Parkinson's Disease Yes Hx Other Neurological Disorders Yes: RESTLESS LEGS Cardiovascular History Hx Congestive Heart Failure Yes Hx Coronary Artery Bypass Graft Yes: 4 VESSEL CABG 2015; CLIPS IN CHEST Hx Coronary Artery Disease Yes Respiratory History Hx Chronic Obstructive Pulmonary Disease Yes: MILD (COPD) Hx Pleurisy Yes Hx Sleep Apnea Yes: CPAP Hx Other Respiratory Disorders Yes: UPPI 1983 Gastrointestinal History Hx Cholecystectomy Yes: 1993 Hx Esophageal Disorders Yes: MCLAUGHLIN'S ESOPHAGUS Hx Gastroesophageal Reflux Disease Yes Hx Hernia Yes: 1993 Hx Ulcer Yes Hx Other Gastrointestinal Disorders Yes: ASHLEIGH 1993 Genitourinary History Hx Benign Prostatic Hyperplasia Yes Musculoskeletal History Hx Arthritis Yes Hx Back Pain Yes Hx Orthopedic Surgery Yes: BACK SURGERY- LOW BACK / RIGHT KNEE CAP Hematological History Hx Hematological Disorders No Significant History Endocrine History Hx Hypothyroidism Yes HEENT History Hx Cataracts Yes: BILATERAL SURGERY 2015 Hx Tonsillectomy Yes Hx Dental Problems Yes: DENTURES FULL Hx Other HEENT Disorders Yes: GLOSOPHARNEAL R-EAR/ THROAT SURGERY 1988 Integumentary History Hx Skin Disorders No Significant History Reproductive History Hx Reproductive Disorders No Significant History Psychosocial History Hx Psychiatric Disorders No Significant History Pain History History of Any Previous or Ongoing No Significant History Instance of Pain Anesthesia History Hx Other Anesthesia Reactions Yes: SLOW TO WAKE UP Evaluation Information Problem Diagnosis Coughing and difficulty swallowing Onset 05/19/21 Cause Parkinson's disease 09/08/20 Additional Evaluation Detail Patient reports occasional hand shaking now and then and history of COPD and
--- NOTE | 2021-08-07 11:38 | PCSTNOTE ---
Patient not seen week of 07/29 due to scheduling conflicts
--- NOTE | 2021-08-07 11:38 | PCSTNOTE ---
Patient canceled this Thursday, 08/06 due to physician appointment, scheduling conflict.
--- NOTE | 2021-08-16 15:37 | STOPEVAL ---
Thank you for referring Kellee Bearden to [facility].? This patient is being discharged this date with all goals achieved. Referring Physician Date Attending Provider: Ochoa Chau ST Clinical Summary SPEECH THERAPY DISCHARGE SUMMARY Clinical Summary ST Clinical Summary Re-Evaluation performed today. Today patient received 40 minutes of VitalStim to the throat at up to 15.0 mA with no adverse effects. He drank water throughout this session with no signs of aspiration, clear vocal quality was present with no throat clearing or coughing. This patient was seen for five treatment sessions following evaluation on 06/05/21. Patient's treatment was delayed until we received permission from his spray stainer . Patient generally attended scheduled treatments but last week and this week was able to only attend once a week. Patient has received four treatments of VitalStim to the throat to improve the strength of the swallow with no adverse effects. The patient completes laryngeal elevation, laryngeal adduction, and base of tongue retraction exercises well. He has consumed cashews on several occasions with water wash because he and his daughter reported they have been difficult for him in the past however on each occasion, he exhibited no signs of aspiration, no coughing or throat clearing. Today, the patient was asked if Speech Therapy been helpful. The patient stated, Yes, definitely. When asked how, he stated that the swallowing has improved and it works out pretty good most of the time.
== END 2021-08-19 11:34 | disposition home or self-care (01) ==
LOC: ANHST 14:00
PROVIDERS: PCP Internal Medicine
DX: R13.10 Dysphagia, unspecified (principal); G20 Parkinson's disease
CPT/HCPCS: 92526; 92610

== ENCOUNTER 2021-11-05 08:51 | Outpatient (CLI) | payer MEDICARE, SELFPAY ==
--- NOTE | 2021-11-05 16:45 | WPDSIXMINUTE ---
Six Minute Walk Procedure Procedure Performed Pulmonary Stress Test (6 min walk) Six Minute Walk Six Minute Walk: This is a 6 minute walk test. The test was performed and interpreted in accordance with the 2014 ERS/ATS task force guidelines. Of note the patient used a personal cane during the walk. Findings: The patient's resting room air oxygen saturation measured by pulse oximetry was 95% and heart rate was 60 bpm. Patient ambulated for 213 meters and oxygen saturation remained 91 to 97%. Heart rate at the end of the study was 78 bpm. The patient did not qualify for supplemental oxygen at rest or with ambulation. There are no prior studies for comparison.
--- NOTE | 2021-11-05 16:46 | WPDPFTINT ---
PFT Procedure Performed PFT Procedure Performed Spirometry with Pre/Post Bronchodilator Plethysmography (Lung Vol) Diffusing Cap (DLCO) Flow Vol Loop PFT Interpretation This is a pulmonary function test with pre and post-bronchodilator spirometry, plethysmography and diffusing capacity. The test was performed and results interpreted in accordance with the 2019 and 2005 ATS/ERS Task Force guidelines respectively using the Global Lung Function Initiative-2012 reference equations. Patient demonstrated good effort and cooperation. Reproducibility criteria were met. The quality of the pre bronchodilator spirometry maneuver was Grade A and post bronchodilator spirometry maneuver was Grade A. Findings: Spirometry: The contour the inspiratory and expiratory flow tracing are normal. The pre bronchodilator FVC is 2.07 L, 65% predicted. The pre bronchodilator FEV1 is 1.79 L, 76% predicted. The pre bronchodilator FEV1: FVC ratio is 87%. The post bronchodilator FVC is 2.06 L, representing 1% decrease. The post bronchodilator FEV1 is 1.81 L, representing 1% increase. The post bronchodilator FEV1: FVC ratio was 88%. Plethysmography: The total lung capacity is 3.75 L, 62% predicted. The functional residual capacity is 2.06 L, 64% predicted. The residual volume is 1.68 L, 69% predicted. Diffusing capacity: The diffusing capacity unadjusted for hemoglobin and carboxyhemoglobin is 14.5, 69% predicted. The diffusing capacity adjusted for alveolar volume is 4.59, 120% predicted. In comparison to previous pulmonary function testing on 07/26/2018 the post bronchodilator FVC is unchanged from 2.09 L to 2.06 L. The post bronchodilator FEV1 is unchanged from 1.79 L to 1.81 L. The total lung capacity is unchanged from 3.96 L to 3.75 L. The functional residual capacity is decreased from 2.52 L to 2.06 L. The residual volume is decreased from 1.99 L to 1.68 L. The diffusing capacity on adjusted for hemoglobin and carboxyhemoglobin is decreased from 17.5 to 14.5. The diffusing capacity adjusted for alveolar volume is unchanged from 5.24 to 4.59. Impression: There is a mild restrictive ventilatory abnormality with a normal FEV1. The spirometry is normal without evidence of an obstructive abnormality. There is no significant improvement after inhaling a single dose of albuterol. The diffusing capacity is normal. When compared to prior pulmonary function testing on 07/16/2018 there has been a greater than anticipated time dependent decrease in the functional residual capacity, residual volume and diffusing capacity unadjusted for hemoglobin and carboxyhemoglobin with no significant change in the FVC, FEV1, total lung capacity, or diffusing capacity adjusted for alveolar volume. Clinical correlation is recommended.
== END 2021-11-05 08:52 | disposition home or self-care (01) ==
LOC: ANHPFT 08:56
PROVIDERS: PCP Internal Medicine; Visit Provider Physician Assistant
DX: J44.9 Chronic obstructive pulmonary disease, unspecified (principal); R94.2 Abnormal results of pulmonary function studies
CPT/HCPCS: 94060; 94618; 94726; 94729

== ENCOUNTER 2021-11-06 07:40 | Outpatient (CLI) | payer MEDICARE, SELFPAY | END 2021-11-06 07:41 | disposition home or self-care (01) | LOC: ANHAUDIO 07:42 | PROVIDERS: PCP Internal Medicine; Visit Provider Internal Medicine | DX: H90.3 Sensorineural hearing loss, bilateral (principal) | CPT/HCPCS: 92557; 92567 ==

== ENCOUNTER 2021-12-12 06:58 | Outpatient (CLI) | payer MEDICARE, SELFPAY ==
--- NOTE | ~2021-12-12 | CT_ITS ---
EXAMINATION: CT chest abdomen pelvis w con DATE: 12/12/2021 07:34 INDICATION: Multiple cranial neuropathies TECHNIQUE: Computed tomography (CT) of the chest, abdomen, and pelvis was performed with 100 CC Omnip aque 350 intravenous contrast. Automated exposure control and iterative reconstruction technique were employed. Exam dose: 867.15 mGy-cm total exam DLP. COMPARISON: 09/14/2020 portable AP chest 07/16/2018 CT chest high resolution scan 03/31/2017 CT abdomen pelvis FINDINGS: CHEST CT: Status post sternotomy. Normal heart size. No pericardial or pleural effusion. Aortic, great vessel a nd coronary artery calcifications. No thoracic aortic aneurysm or dissection is evident. No hilar or mediastinal mass lesion or lymphadenopathy. Calcified right hilar and subcarinal nodes and right upper lobe calcified pulmonary granuloma, consis tent with old pulmonary granulomatous disease. ABDOMEN/PELVIS CT: Hepatic steatosis. No hepatic space-occupying mass lesion. Scattered hepatic and splenic calcified gr anulomas consistent with old granulomatous disease. Normal splenic size. No pancreatic mass lesion, c alcification or ductal dilatation. Status post cholecystectomy. No bile duct dilatation. Normal morphology of the adrenal glands. No renal mass lesion or scarring. 3.4 mm nonobstructing lower pole right renal calculus. No other urinary tract calculus or hydroureter onephrosis. The urinary bladder is unremarkable. There is prostatomegaly. There is an area of soft tissue thickening and luminal narrowing of the proximal transverse colon, of concern for possible colon neoplasm. Colon workup is recommended. There is a very prominent amount fecal material in the cecum and ascending colon. Numerous diverticula of the sigmoid colon. No CT evidence of diverticulitis. Normal caliber and atherosclerotic calcification of the abdominal aorta and iliac arteries. Intraperi toneal or retroperitoneal or pelvic mass lesion or adenopathy or ascites. Multiple surgical clips of the abdomen near the diaphragmatic hiatus. No suspicious osteolytic or osteoblastic lesions are noted. Prominent degenerative disc disease of th e lower cervical spine. Degenerative spurring of the thoracic and lumbar spine. IMPRESSION: Status post sternotomy Status post cholecystectomy 3.4 mm nonobstructing lower pole right renal calculus Prostatomegaly Proximal transverse colon soft tissue mass and minimal narrowing is suspected. Colon workup is recomm ended to exclude carcinoma Diverticulosis of the colon; no evidence of diverticulitis Reviewed, dictated and finalized at [facility]. Reviewed, dictated and finalized at [facility]. IMPRESSION: Status post sternotomy Status post cholecystectomy 3.4 mm nonobstructing lower pole right renal calculus Prostatomegaly Proximal transverse colon soft tissue mass and minimal narrowing is suspected. Colon workup is recommended to exclude carcinoma Diverticulosis of the colon; no evidence of diverticulitis
[2021-12-12 07:26] LABS: Estimated Glomerular Filt Rate > 60
== END 2021-12-12 06:59 | disposition home or self-care (01) ==
PROVIDERS: PCP Internal Medicine
DX: G52.7 Disorders of multiple cranial nerves (principal); Z98.890 Other specified postprocedural states; Z90.49 Acquired absence of other specified parts of digestive tract; N20.0 Calculus of kidney; N40.0 Benign prostatic hyperplasia without lower urinary tract symptoms; K57.90 Diverticulosis of intestine, part unspecified, without perforation or abscess without bleeding; R19.09 Other intra-abdominal and pelvic swelling, mass and lump
CPT/HCPCS: 71260; 74177; Q9967

== ENCOUNTER 2022-02-25 11:46 | Emergency (ER) | payer MEDICARE, SELFPAY ==
[2022-02-25 12:00] VITALS: BP 154/71; PULSE 62; RESP 16; TEMP 36; O2SAT 99
--- NOTE | 2022-02-25 12:43 | ED.EYEPROB ---
HPI - Eye Problem General Chief complaint: Eye Problems Stated complaint: right eye pain Time Seen by Provider: 02/25/22 12:44 Source: patient, RN notes reviewed and old records reviewed Mode of arrival: ambulatory Limitations: no limitations History of Present Illness HPI Narrative: 82-year-old [facility] of right eye pain which started on Thursday evening. He reports that he noticed what he thought was a stye to the inner middle lower eyelid and used warm soaks and OTC stye eye drops. Today he noticed swelling under his right eyelid and to the outer cheek area. He states that his eye feels real irritated.Patient voices concern because he is scheduled to have some reconstuctive muscle surgery on his right eye on Thursday. MD chief complaint: eye redness Onset (ago): day(s) (2) Treatments Prior to Arrival: OTC eye drops and other (warm soaks) Related Data Home Medications Medication Instructions Recorded Confirmed aspirin 81 mg tablet,delayed 81 mg PO DAILY 03/23/19 01/06/22 release (Aspir-Low) docusate sodium 100 mg capsule 200 mg PO HS 03/23/19 01/06/22 (Stool Softener) tamsulosin 0.4 mg capsule 0.4 mg PO DAILY 04/24/20 01/06/22 gabapentin 300 mg capsule 300 mg PO TID 05/15/20 01/06/22 ropinirole 1 mg tablet 1.5 mg PO QID PRN Restless Leg(S) 07/17/20 01/06/22 bumetanide 1 mg tablet 1 mg PO DAILY 12/17/20 01/06/22 carbidopa ER 25 mg-levodopa 100 mg 1 tablet PO TID 12/17/20 01/06/22 tablet,extended release nitroglycerin 0.4 mg sublingual mg 02/25/22 tablet Allergies Allergy/AdvReac Type Severity Reaction Status Date / Time abatacept [From Orencia] Allergy Flushing Verified 02/25/22 12:18 morphine AdvReac Mild Flushing Verified 02/25/22 11:54 Review of Systems Review of Systems: CONSTITUTIONAL: Denies fever, chills, or sweats. EYES: Denies visual changes. Reports redness, irritation, no discharge.swelling under his right eye and to the right outer cheek area. ENT: Denies rhinorrhea, congestion, sore throat, or otalgia. CARDIOVASCULAR: Denies chest pain, palpitations, or edema. RESPIRATORY: Denies cough or dyspnea. SKIN: Denies rash or itching. NEUROLOGIC: Denies headache All systems reviewed & are unremarkable except as noted in HPI and below PMFSH Past Medical History Medical History Arthritis Barretts esophagus Carpal tunnel syndrome on both sides CHF (congestive heart failure) Chronic obstructive pulmonary disease Coronary artery disease Degenerative joint disease of cervical and lumbar spine Gastroesophageal reflux disease Generalized osteoarthritis of multiple sites Hiatal hernia with gastroesophageal reflux disease and esophagitis Mixed restrictive and obstructive lung disease Obstructive sleep apnea RLS (restless legs syndrome) Surgical History Surgical History History of four vessel coronary artery bypass graft Family History Family History Father Acute myocardial infarction, Onset Age: 84 Family history of coronary artery disease, Onset Age: 84 Mother Carcinoma of colon, Onset Age: 64 Sibling Family history of coronary artery disease Carcinoma of colon Social History Social History Social History: on 08/27/19 Smoking packs per day: 1 Smoking cigarettes per day: 20.0 Years smoked: 25 Smoking pack-years: 25.00 Smoking status: Former smoker Tobacco type: cigars Smoking end date: 05/11/14 Alcohol intake: never Substance use: never Substance use type: does not use Additional living arrangements comments: WITH DAUGHTER Spiritual care concerns: No Comments At time of signature, agree with nursing past medical, surgical, social and family history. There is no relevan
--- NOTE | 2022-02-25 12:57 | PC.NURSE ---
eye exam set up at bedside.
== END 2022-02-25 13:29 | disposition home or self-care (01) ==
PROVIDERS: Emergency Provider Registered Nurse; PCP Internal Medicine
DX: H57.11 Ocular pain, right eye (principal); Z87.891 Personal history of nicotine dependence; M19.90 Unspecified osteoarthritis, unspecified site; K22.70 Barrett's esophagus without dysplasia; J44.9 Chronic obstructive pulmonary disease, unspecified; I25.10 Atherosclerotic heart disease of native coronary artery without angina pectoris; K21.9 Gastro-esophageal reflux disease without esophagitis; G47.33 Obstructive sleep apnea (adult) (pediatric); G25.81 Restless legs syndrome; I50.9 Heart failure, unspecified; Z95.1 Presence of aortocoronary bypass graft; M47.812 Spondylosis without myelopathy or radiculopathy, cervical region; M47.816 Spondylosis without myelopathy or radiculopathy, lumbar region
CPT/HCPCS: 99213; A9270; G0463

== ENCOUNTER 2022-05-16 12:48 | Inpatient (IN) | payer MEDICARE, SELFPAY ==
[2022-05-16] VITALS (33 sets, daily range): BP systolic 112–146; BP diastolic 58–99; PULSE 66–99; RESP 14–23; TEMP 36.6; O2SAT 91–100
--- NOTE | ~2022-05-16 | CT_ITS ---
EXAMINATION: CT chest abdomen pelvis w con DATE: 05/16/2022 20:28 PERSONAL SERVICE REPRESENTATIVE INDICATION: Cough and shortness of breath. Recent fall. Flank bruising. TECHNIQUE: Computed tomography (CT) of the chest, abdomen, and pelvis was performed with 100 cc Omnip aque 350 intravenous contrast. The dose-length product was occurred dose 748.68 mGy-cm. Automated exp osure control and iterative reconstruction technique were employed. COMPARISON: CT dated 01/01/2022 FINDINGS: CHEST CT: Heart size normal. No significant pleural or pericardial effusion. No thoracic lymphadenopathy. There is atherosclerosis of the aorta and coronary arteries. There is a hiatal hernia. No significant pleu ral or pericardial effusion. There is focal airspace consolidation in the right upper lobe. There is patchy groundglass opacification of the lower lobes. No endobronchial lesions. Calcified mediastinal lymph nodes, consistent with chronic granulomatous disease. There are calcified granulomas of the spl een. No suspicious pulmonary nodules. Status post median sternotomy for CABG. ABDOMEN/PELVIS CT: Status post cholecystectomy. Fatty infiltration of the liver. There is fatty replacement of the pancr eas. The adrenal glands and kidneys are unremarkable. There is thickening of the pylorus, suspicious for peptic ulcer disease. No evidence for ulceration or perforation. Nonobstructive bowel gas pattern . There is severe enlargement of the prostate gland. Colonic diverticulosis without evidence for dive rticulitis. Bladder is unremarkable. There is osteoarthritis of the hips. There is a 2 mm nonobstruct ing right renal stone at the lower pole. There is focal soft tissue in the left flank with mild surro unding fatty infiltration. This soft tissue measures 3.4 x 2.5 cm, likely hematoma. There is osteoarthritis of the hips. There is moderate thoracic and lumbar spondylosis. IMPRESSION: 1. Patchy airspace disease of the right upper and lower lobe, suspicious for pneumonia. 2: Thickening of the pylorus with mucosal enhancement, suspicious for peptic ulcer disease. 3: Enlarged prostate gland. 4: Nonobstructing right nephrolithiasis. 5: Focal soft tissue in the left lateral abdominal wall measuring up to 3.4 cm, likely hematoma. Cor relate for localized trauma. Reviewed, dictated and finalized at location A. ONAL SERVICE REPRESENTATIVE IMPRESSION: 1. Patchy airspace disease of the right upper and lower lobe, suspicious for pn eumonia. 2: Thickening of the pylorus with mucosal enhancement, suspicious for peptic ul cer disease. 3: Enlarged prostate gland. 4: Nonobstructing right nephrolithiasis. 5: Focal soft tissue in the left lateral abdominal wall measuring up to 3.4 cm , likely hematoma. Correlate for localized trauma.
--- NOTE | ~2022-05-16 | XR_ITS ---
MODIFIED ESOPHAGRAM HISTORY: Choking. A small aspiration. History of dysphagia. TECHNIQUE: Modified barium esophagram was performed by speech pathologist under radiologist fluorosco pic guidance. This was recorded on tape. The exam was reviewed on 05/17/2022 12:35 COMPLIANCE ATTORNEY. The DAP for this procedure was 1.3 Gycm2. Fluoroscopy time is 1.4. FINDINGS: Lateral projection of the cervical spine demonstrates normal alignment. Prominent ventral osteophyte at C3.. There is reduced lingual movement. There is reduced tongue base retraction, phary ngeal squeeze. There is residue in the vallecula. Laryngeal penetration is identified without definit e aspiration.. IMPRESSION: 1: Laryngeal penetration without aspiration. 2: Please refer to speech pathologist report for additional detail. Reviewed, dictated and finalized at location A. LIANCE ATTORNEY
--- NOTE | ~2022-05-16 | XR_ITS ---
Clinical Indication: Cough PA and lateral views of the chest: Comparison: 09/14/2020 Findings: The lungs are clear, without evidence of focal consolidation or pleural effusion. Cardiome diastinal silhouette is stable, status post CABG. Bones and soft tissues are unremarkable. Impression: Clear lungs. Status post CABG. Reviewed, dictated and finalized at location . MANAGER Impression: Clear lungs. Status post CABG.
--- NOTE | 2022-05-16 13:04 | ECG_ITS ---
Measurements Intervals [place] Rate: 67 P: 22 ND: 199 QRS: -45 QRSD: 138 T: 59 QT: 422 QTc: 447 Interpretive Statements SINUS RHYTHM INTRAVENTRICULAR CONDUCTION DELAY POOR R WAVE PROGRESSION, ANTERIOR LEADS MINIMAL Q WAVES- HIGH LATERAL LEADS BORDERLINE ECG COMPARED TO ECG 06/19/2018 11:06:08 INTRAVENTRICULAR CONDUCTION DELAY NOW PRESENT Electronically Signed On 05-16-2022 13:50:14 MANAGER OF OPERATIONS by Jaylen Mata D.O.
[2022-05-16 13:19] LABS: Basophils Percent Auto 0.6 % (0.2-1.2); Eosinophils Absolute Auto 0.2 K/mm3 (0-0.3); Hematocrit 38.1 % (42.0-52.0); Hemoglobin 13.3 g/dL (14.0-18.0); Immature Granulocyte Absolute 0.04 K/mm3 (0.00-0.031); Immature Granulocyte Percent A 0.6 % (0-0.5); Lymphocytes Absolute Auto 1.09 K/mm3 (0.9-3.2); Lymphocytes Percent Auto 16.9 % (18.3-44.2); Mean Corpuscular HGB Conc 34.9 g/dl (32-36); Mean Corpuscular Hemoglobin 32.6 pg (26-34); Mean Corpuscular Volume 93.4 fl (80-100); Monocytes Absolute Auto 0.6 K/mm3 (0.1-0.6); Monocytes Percent Auto 8.9 % (2.6-8.5); Neutrophils Absolute Auto 4.5 K/mm3 (1.3-6.7); Platelet Count Result 232 k/mm3 (150-375); Red Blood Count 4.08 M/mm3 (4.6-6.20); Red Cell Distribution Width 13.2 % (11.5-14.5); White Blood Count 6.4 K/mm3 (4.5-10.0)
[2022-05-16 13:29] LABS: Chloride 99 mmol/L (98-107)
[2022-05-16 13:42] LABS: Alanine Aminotransferase 8 U/L (6-50); Albumin Level 3.8 g/dL (3.5-5.1); Alkaline Phosphatase 139 U/L (38-126); Anion Gap 6 mmol/L (8-16); Aspartate Amino Transferase 23 U/L (17-59); Bilirubin,Total 0.8 mg/dL (0.2-1.3); Blood Urea Nitrogen 25 mg/dL (9-20); Calcium 8.3 mg/dL (8.4-10.2); Carbon Dioxide 30 mmol/L (22-30); Estimated CRCL calculation 54 ml/min; Estimated Glomerular Filt Rate > 60; Glucose 98 mg/dL (65-110); Potassium 3.6 mmol/L (3.4-5.0); Sodium 135 mmol/L (137-145)
--- NOTE | 2022-05-16 18:54 | ED.SOB ---
HPI - SOB/Dyspnea General Chief Complaint: Shortness of Breath/Dyspnea Stated Complaint: SOB, cough Time Seen by Provider: 05/16/22 18:23 History of Present Illness HPI Narrative: Patient is an 82-year-old male with a history of COPD, Parkinson's, rheumatoid arthritis on Plaquenil, CHF presenting with shortness of breath and cough. Patient was recently in [place] visiting family. While there he developed shortness of breath and cough. He was seen in the ER twice and was diagnosed with COPD exacerbations. He was sent home on steroids and antibiotics which he has been taking as prescribed. States that he was prescribed an inhaler for the first time which he has been using every 4 hours. States it provides temporary relief. Patient saw pulmonology earlier today who was concerned but he continues to be very dyspneic with bilateral wheezing and crackles. Concern for possible aspiration as the patient does have dysphagia related to his Parkinson's. Patient denies fevers, headache, chest pain, nausea or vomiting, diarrhea, dysuria. Patient does report some left-sided abdominal pain with extensive bruising following a ground-level fall several days ago. Related Data Home Medications Medication Instructions Recorded Confirmed aspirin 81 mg tablet,delayed 81 mg PO QHS 03/23/19 05/17/22 release (Aspir-Low) tamsulosin 0.4 mg capsule 0.4 mg PO HS 04/24/20 05/17/22 gabapentin 300 mg capsule 300 mg PO TID 05/15/20 05/17/22 bumetanide 1 mg tablet 1 mg PO DAILY 12/17/20 05/17/22 nitroglycerin 0.4 mg sublingual 0.4 mg sublingual PRN PRN Angina 02/25/22 05/17/22 tablet carbidopa ER 25 mg-levodopa 100 mg 2 tablet PO TID 05/16/22 05/17/22 tablet,extended release docusate sodium 100 mg capsule 100 mg PO HS 05/16/22 05/17/22 (Stool Softener) ropinirole 1 mg tablet 1.5 mg PO QID Restless Leg(S) 05/16/22 05/17/22 pantoprazole 40 mg tablet,delayed 40 mg PO BID 05/17/22 05/17/22 release Allergies Allergy/AdvReac Type Severity Reaction Status Date / Time abatacept AdvReac Flushing Verified 05/17/22 00:55 Review of Systems Review of Systems: All systems reviewed & are unremarkable except as noted in HPI and below [facility] Past Medical History Medical History (Updated 05/17/22 @ 17:41 by Megan Barney MD) Arthritis Barretts esophagus Carpal tunnel syndrome on both sides CHF (congestive heart failure) Echo May 2020: Normal left ventricular systolic function EF 69%, moderate concentric left ventricular hypertrophy, mild left ventricular enlargement, paradoxical septal motion consistent with bundle branch block, diastolic dysfunction grade 1, technically difficult study Chronic obstructive pulmonary disease Mild emphysematous changes noted on CT scan Coronary artery disease Degenerative joint disease of cervical and lumbar spine Gastroesophageal reflux disease Generalized osteoarthritis of multiple sites Hiatal hernia with gastroesophageal reflux disease and esophagitis Hypothyroidism Mixed restrictive and obstructive lung disease Obstructive sleep apnea Rheumatoid arthritis RLS (restless legs syndrome) Surgical History Surgical History (Updated 05/17/22 @ 03:15 by Melany Denney DO) H/O eye surgery Left eye to correct double vision History of dental taoism Dental implants History of four vessel coronary artery bypass graft History of Osvaldo fundoplication History of tonsillectomy and adenoidectomy History of uvulopalatopharyngoplasty Hx of cholecystectomy Status post cataract extraction of both eyes with insertion of intraocular lens Status post open reduction with internal fixation of fracture Knee cap Family History Family History Father Acute myocardial infarction, Onset Age: 84 Family history of coronary artery disease, Onset Age: 84 Mother Carcinoma of colon, Onset Age: 64 Sibling Family history of coronary artery
[2022-05-16] MEDS: IPRATROPIUM BR 0.02% INH SOLN 0.5 MG/2.5 ML VIAL INHALATION (19:28)
[2022-05-16] MEDS: ALBUTEROL SULFATE NEB 2.5 MG/3 ML INH 5 MG INHALATION (19:28)
[2022-05-16 19:36] LABS: INR 1.1; Prothrombin Time 13.4 Seconds (11.1-14.7)
[2022-05-16 19:37] LABS: Partial Thromboplastin Time 42.3 SECONDS (22.3-36.8)
[2022-05-16 19:43] LABS: NT Pro B Type Natriuretic Pept 312 pg/mL (5-100); Troponin I < 0.012 ng/mL (0.000-0.034)
[2022-05-16 20:04] LABS: Influenza A QL RT-PCR Negative (Negative); Influenza B QL RT-PCR Negative (Negative); RSV RNA, RT-PCR Positive (Negative); SARS-CoV-2 RNA PCR Negative
[2022-05-16] MEDS: BENZONATATE 100 MG CAPSULE PO (20:56)
[2022-05-16 22:30] LABS: Troponin I 0.014 ng/mL (0.000-0.034)
[2022-05-17] VITALS (10 sets, daily range): BP systolic 107–132; BP diastolic 55–62; PULSE 66–78; RESP 16–20; TEMP 36.6; O2SAT 94–97; BMI 29.5
--- NOTE | 2022-05-17 00:17 | ADMGEN ---
This patient, Kellee Bearden, was admitted to Medical Room 340-01. Patient/family oriented to hospital policies and general routines including ID bracelet, bed and alarms, visiting hours, pain management, procedures, bathroom and other care routines, personal items, smoking policy, room service/diet, and visiting hours. Information on how to activate the Rapid Response Team has been discussed. Patient/Family are encouraged to report perceived risks to care and to ask questions if they do not understand what they are told or what they should do.
--- NOTE | 2022-05-17 02:13 | PM.IMHP ---
H&P: HPI History of Present Illness Date/Time: 05/16/22 23:00 Chief Complaint: Cough Narrative: 82-year-old male with past medical history of COPD, CHF, coronary artery disease, Parkinson's disease and prior episodes of oral pharyngeal dysphagia who presented to the ER from the ground support agent's office with complaint of nonproductive cough and shortness of breath for 2.5 weeks. The patient had traveled to [place] on April 26. By the time they arrived in [place] the patient was having difficulty with shortness of breath and leg swelling. The patient took some extra Lasix and improved. However, May 06 he started having variable difficulties with oxygenation with and was at a high altitude. He was subsequently taken to [place] where his respiratory status improved. Then a few days later he began having cough and shortness of breath and went back to the ER on May 11 for fever and shortness of breath. He was tested for COVID, RSV and influenza which were all negative. He was diagnosed with a COPD exacerbation and started on prednisone and given extra inhalers. The rescue inhaler did give him brief relief in his symptoms. On his return visit to the ER he was diagnosis COPD exacerbation and given prescription for doxycycline prednisone and inhalers. He is just now finishing his course of doxycycline. They returned home from [place] on the . His labs from the outside facility demonstrated no white count normal BMP and small lung volumes on x-ray without evidence of infiltrate. The patient does have a history of oral pharyngeal dysphagia and was receiving speech therapy from January 2020 through May 2021. Daughter reports that for the last week the patient has had good appetite but has not been able to finish his meals. She thinks that he is more fatigued. The patient does not disagree with this. They report that his leg swelling has been stable since he took the extra dose of Lasix wall they were gone on his travels. He denies any orthopnea or paroxysmal nocturnal dyspnea but states that he does not think he can wear his CPAP due to his severe coughing. His cough is frequent with out sputum production. He has not noticed any wheezing. Patient has history of uvulopalatoplasty. His while the patient was on the airplane on the he was eating some peanuts and choked on the peanuts. The ER reports that the patient turned purplish in color. Eventually the patient was able to spit out the peanuts. The daughter reports that in min for the last fiber 6 days at family members had noticed the patient was having episodes of coughing after eating and drinking. Coughing seemed to be worse after drinking. The patient does not necessarily agree with this. He is fuully vaccinated against COVID and influenza. He denies any chest pain but does report some left flank pain. The patient was evidently at his family members house on the 3rd. He fell striking his left flank. He did not lose consciousness or hit his head. He has not had any change in mentation or episodes of confusion. He does have some difficulty with weak urine stream at times and is on Flomax. He denies dysuria or other urinary symptoms. He has been having normal bowel movements. The patient's daughter had been ill with similar symptoms during her trip but has already recovered. Patient had not had any nausea or vomiting but has chronic GERD. The patient was afebrile in the ER and maintaining oxygen saturations on room air. His RSV PCR was positive. His white count was elevated to 16,000 and his x-ray demonstrated no acute process but CT of the abdomen pelvis demonstrated patchy airspace disease of the right upper and lower lobe suspicious for pneumonia. Thickened pylorus with mucosal enhancement suspicious for peptic ulcer disease, BPH and non obstructive right nephrolithiasis with focal soft tissue density in the left lateral abdominal wall 3.4 cm consistent with hematom
[2022-05-17] MEDS: IPRATROPIUM BR 0.02% INH SOLN 0.5 MG/2.5 ML VIAL INHALATION (02:55)
[2022-05-17] MEDS: ALBUTEROL SULFATE NEB 2.5 MG/3 ML INH 5 MG INHALATION ×3 (02:55→21:17)
--- NOTE | 2022-05-17 02:57 | PCRCNOTE ---
pt refused BIPAP. RN informed.
[2022-05-17] MEDS: rOPINIRole HCL 1 MG TABLET 3 MG PO ×5 (03:20→20:16)
[2022-05-17] MEDS: guaiFENesin 12 HR 600 MG TABCR 1200 MG PO ×3 (03:20→20:16)
[2022-05-17] MEDS: carBAMazepine 200 MG TABLET PO ×3 (03:22→20:17)
[2022-05-17] MEDS: GABAPENTIN 300 MG CAPSULE PO ×4 (03:22→18:11)
[2022-05-17] MEDS: CARBIDOPA/LEVODOPA 25/100 MG TABLET 2 TABLET PO ×3 (03:23→18:09)
[2022-05-17] MEDS: AMPICILLIN SULB 3 GM/NS 100 ML 3 GM/100 ML VIAL IVPB ×4 (03:26→20:16)
[2022-05-17] MEDS: LEVOTHYROXINE SODIUM 100 MCG TABLET PO (06:16)
[2022-05-17 06:20] LABS: Basophils Percent Auto 0.6 % (0.2-1.2); Eosinophils Absolute Auto 0.2 K/mm3 (0-0.3); Eosinophils Percent Auto 2.6 % (0-4.4); Hematocrit 37.3 % (42.0-52.0); Hemoglobin 12.6 g/dL (14.0-18.0); Immature Granulocyte Absolute 0.05 K/mm3 (0.00-0.031); Immature Granulocyte Percent A 0.8 % (0-0.5); Lymphocytes Absolute Auto 0.87 K/mm3 (0.9-3.2); Lymphocytes Percent Auto 13.3 % (18.3-44.2); Mean Corpuscular HGB Conc 33.8 g/dl (32-36); Mean Corpuscular Volume 94.7 fl (80-100); Mean Platelet Volume 9.5 fl (7.4-10.4); Monocytes Absolute Auto 0.6 K/mm3 (0.1-0.6); Monocytes Percent Auto 8.9 % (2.6-8.5); Neutrophils Absolute Auto 4.8 K/mm3 (1.3-6.7); Neutrophils Percent Auto 73.8 % (45.5-73.1); Platelet Count Result 239 k/mm3 (150-375); Red Blood Count 3.94 M/mm3 (4.6-6.20); Red Cell Distribution Width 13.3 % (11.5-14.5); White Blood Count 6.5 K/mm3 (4.5-10.0)
[2022-05-17 06:33] LABS: Anion Gap 5 mmol/L (8-16); Blood Urea Nitrogen 21 mg/dL (9-20); Calcium 8.4 mg/dL (8.4-10.2); Carbon Dioxide 31 mmol/L (22-30); Chloride 100 mmol/L (98-107); Estimated CRCL calculation 58 ml/min; Estimated Glomerular Filt Rate > 60; Glucose 86 mg/dL (65-110); Potassium 3.8 mmol/L (3.4-5.0); Sodium 136 mmol/L (137-145)
[2022-05-17] MEDS: HYDROXYCHLOROQUINE SULFATE 200 MG TABLET 400 MG PO (09:08)
[2022-05-17] MEDS: UMECLIDINIUM BROMIDE 62.5 MCG ELLIPTA 1 PUFF INHALATION (09:17)
--- NOTE | 2022-05-17 13:45 | PM.IMPN ---
Progress Note: A&P Assessment and Plan (1) RSV (acute bronchiolitis due to respiratory syncytial virus): Code(s): J21.0 - Acute bronchiolitis due to respiratory syncytial virus Status: Acute Assessment and Plan: Continue nebulizer therapy 05/17 add steroids (2) Pneumonia: Qualifiers: Pneumonia type: due to unspecified organism Laterality: right Lung location: unspecified part of lung Qualified Code(s): J18.9 - Pneumonia, unspecified organism Code(s): J18.9 - Pneumonia, unspecified organism Status: Acute Assessment and Plan: continue Unasyn started on 05/16/22 for possible aspiration 05/17 add Doxycycline (no Zithromax due to QTc effects of hydroxychloroquine) (3) Obstructive sleep apnea: Code(s): G47.33 - Obstructive sleep apnea (adult) (pediatric) Status: Acute Assessment and Plan: S/p UPPP Bipap at night (4) RLS (restless legs syndrome): Code(s): G25.81 - Restless legs syndrome Status: Acute Assessment and Plan: Continue home meds (5) Mixed restrictive and obstructive lung disease: Code(s): J43.9 - Emphysema, unspecified; J98.4 - Other disorders of lung Status: Acute Assessment and Plan: Clinically with exacerbation due to infection Continue umeclidinium, albuterol 05/17 add steroids (6) Hypothyroidism: Code(s): E03.9 - Hypothyroidism, unspecified Status: Acute Assessment and Plan: Continue home med (7) Immunosuppressed status: Code(s): D84.9 - Immunodeficiency, unspecified Status: Acute Assessment and Plan: On hydroxychloroquine (8) Parkinson's disease: Code(s): G20 - Parkinson's disease Status: Acute Assessment and Plan: Continue home meds ST/PT/OT Subjective Date/time seen: 05/17/22 13:45 Interval history: 82-year-old gentleman with Parkinson's disease was admitted May 16 with pneumonia. He was positive for RSV as well. He is feeling rough today. Hungry. He had difficulty on his swallowing study. He had a former uvulopalatal pharyngoplasty for sleep apnea several years ago. Had some penetration and some slow esophageal motility. He is short of breath with exertion but not requiring oxygen. He has a cough productive of small amounts of white sputum. No fevers or chills. No chest pain. No GI symptoms. No abnormal bleeding. He has difficulty walking due to his Parkinson's disease. Balance is poor. No focal weakness. No confusion or memory problems. Review of Systems Review of Systems: All systems reviewed & are unremarkable except as noted in HPI and below Objective Data Vital Signs Vital Signs: Vital Signs - 24 hr 05/16/22 18:43 05/16/22 19:26 05/16/22 18:31 Temperature Pulse Rate 87 Respiratory Rate 14 Blood Pressure 146/71 H Pulse Oximetry 100 100 Oxygen Delivery Room Air 05/16/22 18:37 05/16/22 18:51 05/16/22 19:06 Temperature Pulse Rate 73 Respiratory Rate 18 Blood Pressure Pulse Oximetry 99 99 Oxygen Delivery 05/16/22 19:15 05/16/22 19:16 05/16/22 19:30 Temperature Pulse Rate 66 69 68 Respiratory Rate 17 22 H Blood Pressure 143/99 H Pulse Oximetry 100 100 100 Oxygen Delivery 05/16/22 19:45 05/16/22 20:00 05/16/22 20:41 Temperature Pulse Rate 66 81 98 Respiratory Rate 22 H Blood Pressure Pulse Oximetry 100 100 97 Oxygen Delivery 05/16/22 20:45 05/16/22 20:46 05/16/22 21:00 Temperature Pulse Rate 94 95 95 Respiratory Rate 23 H 21 H 22 H Blood Pressure 141/79 H Pulse Oximetry 97 99 96 Oxygen Delivery 05/16/22 21:01 05/16/22 21:16 05/16/22 21:30 Temperature Pulse Rate 95 99 87 Respiratory Rate 17 21 H Blood Pressure 129/77 Pulse Oximetry 94 96 95 Oxygen Delivery 05/16/22 21:31 05/16/22 21:45 05/16/22 22:01 Temperature Pulse Rate 86 86 83 Respiratory Rate Blood Pressure 12
--- NOTE | 2022-05-17 14:25 | PCSTNOTE ---
Modified barium swallow study. Patient alert and attentive. Patient was given trials of thin liquid, moderately thick liquid, pureed, and mixed consistencies. Patient had difficulty managing bolus orally with spillage to lateral sulci with all consistencies. Poor bolus management during pharyngeal stage as well. Some oral pharyngeal structures are missing including uvula and tonsils due to surgical removal to treat sleep apnea some years ago. Flash penetration was observed with thin liquids. Recommendation: pureed diet with honey thickened liquids. Swallowing precaution recommendations posted in chart. Thank you for the referral of this patient.
[2022-05-17] MEDS: methylPREDNISolone SOD SUCC 125 MG VIAL 60 MG IV PUSH (14:29)
--- NOTE | 2022-05-17 17:00 | PCRCNOTE ---
Window of time for administration has passed. See next scheduled administration.
[2022-05-17] MEDS: FAMOTIDINE 20 MG TABLET PO (18:10)
[2022-05-17] MEDS: PANTOPRAZOLE 40 MG TABLET PO (18:11)
[2022-05-17] MEDS: DOXYCYCLINE HYCLATE 100 MG TABLET PO (20:16)
[2022-05-17] MEDS: TAMSULOSIN HCL 0.4 MG CAPSULE PO (20:16)
[2022-05-17] MEDS: ASPIRIN 81 MG ENTERIC TABLET PO (20:17)
[2022-05-17] MEDS: DOCUSATE SODIUM 100 MG CAPSULE PO (20:17)
[2022-05-18] VITALS (13 sets, daily range): BP systolic 118–120; BP diastolic 54–68; PULSE 60–94; RESP 18–24; TEMP 36.5–36.6; O2SAT 95–97
[2022-05-18] MEDS: ALBUTEROL SULFATE NEB 2.5 MG/3 ML INH 5 MG INHALATION ×4 (02:17→23:00)
[2022-05-18] MEDS: AMPICILLIN SULB 3 GM/NS 100 ML 3 GM/100 ML VIAL IVPB ×4 (02:21→20:31)
[2022-05-18] MEDS: ONDANSETRON INJ 4 MG/2 ML VIAL IV PUSH (04:36)
[2022-05-18 06:02] LABS: Hematocrit 37.4 % (42.0-52.0); Hemoglobin 12.6 g/dL (14.0-18.0); Mean Corpuscular HGB Conc 33.7 g/dl (32-36); Mean Corpuscular Hemoglobin 32.6 pg (26-34); Mean Corpuscular Volume 96.6 fl (80-100); Mean Platelet Volume 9.4 fl (7.4-10.4); Platelet Count Result 214 k/mm3 (150-375); Red Blood Count 3.87 M/mm3 (4.6-6.20); Red Cell Distribution Width 13.4 % (11.5-14.5); White Blood Count 7.2 K/mm3 (4.5-10.0)
[2022-05-18 06:14] LABS: Anion Gap 4 mmol/L (8-16); Blood Urea Nitrogen 19 mg/dL (9-20); Calcium 8.1 mg/dL (8.4-10.2); Carbon Dioxide 28 mmol/L (22-30); Chloride 102 mmol/L (98-107); Estimated CRCL calculation 58 ml/min; Estimated Glomerular Filt Rate > 60; Glucose 101 mg/dL (65-110); Potassium 3.4 mmol/L (3.4-5.0); Sodium 134 mmol/L (137-145)
[2022-05-18] MEDS: UMECLIDINIUM BROMIDE 62.5 MCG ELLIPTA 1 PUFF INHALATION (09:03)
[2022-05-18] MEDS: rOPINIRole HCL 1 MG TABLET 3 MG PO ×4 (09:31→20:31)
[2022-05-18] MEDS: GABAPENTIN 300 MG CAPSULE PO ×3 (09:31→17:23)
[2022-05-18] MEDS: LEVOTHYROXINE SODIUM 100 MCG TABLET PO (09:31)
[2022-05-18] MEDS: predniSONE 20 MG TABLET 40 MG PO (09:31)
[2022-05-18] MEDS: guaiFENesin 12 HR 600 MG TABCR 1200 MG PO (09:31)
[2022-05-18] MEDS: CARBIDOPA/LEVODOPA 25/100 MG TABLET 2 TABLET PO ×3 (09:31→18:06)
[2022-05-18] MEDS: HYDROXYCHLOROQUINE SULFATE 200 MG TABLET 400 MG PO (09:32)
[2022-05-18] MEDS: DOXYCYCLINE HYCLATE 100 MG TABLET PO ×2 (09:33→20:32)
[2022-05-18] MEDS: PANTOPRAZOLE 40 MG TABLET PO (09:33)
[2022-05-18] MEDS: FAMOTIDINE 20 MG TABLET PO (09:33)
[2022-05-18] MEDS: carBAMazepine 200 MG TABLET PO ×2 (09:33→20:31)
--- NOTE | 2022-05-18 11:46 | PM.IMPN ---
Progress Note: A&P Assessment and Plan (1) RSV (acute bronchiolitis due to respiratory syncytial virus): Code(s): J21.0 - Acute bronchiolitis due to respiratory syncytial virus Status: Acute Assessment and Plan: Patient tested positive for RSV on 05/16/2022 Continue supplementary oxygen patient currently 95% on room air Continue albuterol with guaifenesin Solu-Medrol and umeclidinum (2) Pneumonia: Code(s): J18.9 - Pneumonia, unspecified organism Status: Acute Assessment and Plan: Continue Unasyn due to possible aspiration and doxycycline Continue supplementary oxygen Imaging indicates pneumonia (3) Obstructive sleep apnea: Code(s): G47.33 - Obstructive sleep apnea (adult) (pediatric) Status: Acute Assessment and Plan: Continue BiPAP at night (4) RLS (restless legs syndrome): Code(s): G25.81 - Restless legs syndrome Status: Acute Assessment and Plan: Continue home medication (5) Hypertension: Code(s): I10 - Essential (primary) hypertension Status: Acute Assessment and Plan: Blood pressure stable Continue bumetanide vital signs is ordered Will adjust medication as needed (6) Parkinson's disease: Code(s): G20 - Parkinson's disease Status: Acute Assessment and Plan: Continue home medication (7) Chronic obstructive pulmonary disease: Qualifiers: COPD type: unspecified COPD Qualified Code(s): J44.9 - Chronic obstructive pulmonary disease, unspecified Code(s): J44.9 - Chronic obstructive pulmonary disease, unspecified Status: Acute Assessment and Plan: Worsened by RSV and pneumonia (8) Hypothyroidism: Code(s): E03.9 - Hypothyroidism, unspecified Status: Acute Assessment and Plan: Continue home medication (9) Immunosuppressed status: Code(s): D84.9 - Immunodeficiency, unspecified Status: Acute Assessment and Plan: Continue home medication Subjective Date/time seen: 05/18/22 11:46 Interval history: According to family member patient when he is taking certain pills he seemed to choke. Will attempt to change medication to liquid form or IV form. He has no other complaints at this time. The patient denies SOB, CP, palpitation, extremity numbness, lightheadedness, dizziness, constipation, diarrhea, chills, or fever. Review of Systems Review of Systems: A 14 organ system Review of Systems was performed and pertinent positives included in the HPI, otherwise remaining ROS is negative. Exam Narrative: GENERAL: This is a well-nourished, well-developed patient, in no apparent distress. HEAD: normocephalic, atraumatic. EYES: PERRL. Sclera clear/white. Vision is grossly intact. EARS: External ears normal, auditory canals clear and without drainage, TMs normal without perforation. Hearing grossly intact. NOSE: External nose normal with no obvious nasal discharge, nares without redness, no rhinorrhea. THROAT: Mucous membranes moist, posterior pharynx clear. NECK: Neck supple, non-tender without lymphadenopathy, masses or thyromegaly. CARDIOVASCULAR: Regular rate and rhythm without murmurs, gallops, or rubs. RESPIRATORY: Diminished. GASTROINTESTINAL: Abdomen soft, non-tender, nondistended. Bowel sounds are active. No hepato-splenomegaly, or palpable masses. No guarding. SKIN: warm, intact with no suspicious lesions or rash, good texture and turgor. NEURO: awake, alert, and oriented to person, place and time. There were no obvious focal neurologic abnormalities. EXTREMITIES: Normal range of motion. No edema. No calf tenderness. Objective Data Vital Signs Vital Signs: Vital Signs - 24 hr 05/17/22 14:00 05/17/22 19:16 05/17/22 21:18 Temperature 97.8 F 97.9 F Pulse Rate 72 70 68 Respiratory Rate 18 18 18 Blood Pressure 121/55 L 132/62 Pulse Oximetry 97 97 97 Oxygen Delivery Room Air 05/17/22 21:18 05/17
[2022-05-18] MEDS: guaiFENesin/DEXTROMETHORPHAN 10 ML UDC PO (17:23)
[2022-05-18] MEDS: ASPIRIN 81 MG ENTERIC TABLET PO (20:31)
[2022-05-18] MEDS: TAMSULOSIN HCL 0.4 MG CAPSULE PO (20:32)
[2022-05-18] MEDS: PANTOPRAZOLE SODIUM IV 40 MG VIAL IV PUSH (20:32)
[2022-05-18] MEDS: DOCUSATE SODIUM LIQ 100 MG/10 ML UDC PO (20:32)
[2022-05-18] MEDS: FAMOTIDINE 20 MG/2 ML VIAL IV PUSH (20:32)
[2022-05-19] VITALS (8 sets, daily range): BP systolic 128–140; BP diastolic 60–75; PULSE 67–87; RESP 18–20; TEMP 36.4–36.6; O2SAT 96–100
[2022-05-19] MEDS: AMPICILLIN SULB 3 GM/NS 100 ML 3 GM/100 ML VIAL IVPB ×4 (02:47→20:34)
[2022-05-19] MEDS: ACETAMINOPHEN 325 MG TABLET 650 MG PO (02:48)
[2022-05-19 05:53] LABS: Hemoglobin 11.5 g/dL (14.0-18.0); Mean Corpuscular HGB Conc 33.8 g/dl (32-36); Mean Corpuscular Hemoglobin 32.3 pg (26-34); Mean Corpuscular Volume 95.5 fl (80-100); Mean Platelet Volume 9.6 fl (7.4-10.4); Platelet Count Result 202 k/mm3 (150-375); Red Blood Count 3.56 M/mm3 (4.6-6.20); Red Cell Distribution Width 13.3 % (11.5-14.5); White Blood Count 5.9 K/mm3 (4.5-10.0)
[2022-05-19 06:01] LABS: Anion Gap 3 mmol/L (8-16); Blood Urea Nitrogen 18 mg/dL (9-20); Carbon Dioxide 28 mmol/L (22-30); Chloride 104 mmol/L (98-107); Estimated CRCL calculation 58 ml/min; Estimated Glomerular Filt Rate > 60; Glucose 85 mg/dL (65-110); Potassium 3.7 mmol/L (3.4-5.0); Sodium 135 mmol/L (137-145)
[2022-05-19] MEDS: LEVOTHYROXINE SODIUM 100 MCG TABLET PO (06:36)
[2022-05-19] MEDS: guaiFENesin/DEXTROMETHORPHAN 10 ML UDC PO ×3 (06:37→22:56)
[2022-05-19] MEDS: BENZONATATE 100 MG CAPSULE 200 MG PO ×3 (10:11→20:30)
[2022-05-19] MEDS: rOPINIRole HCL 1 MG TABLET 3 MG PO ×4 (10:12→20:28)
[2022-05-19] MEDS: predniSONE 20 MG TABLET 40 MG PO (10:12)
[2022-05-19] MEDS: HYDROXYCHLOROQUINE SULFATE 200 MG TABLET 400 MG PO (10:12)
[2022-05-19] MEDS: GABAPENTIN 300 MG CAPSULE PO ×3 (10:14→17:31)
[2022-05-19] MEDS: carBAMazepine 200 MG TABLET PO ×2 (10:14→20:28)
[2022-05-19] MEDS: CARBIDOPA/LEVODOPA 25/100 MG TABLET 2 TABLET PO ×3 (10:14→17:29)
[2022-05-19] MEDS: PANTOPRAZOLE SODIUM IV 40 MG VIAL IV PUSH ×2 (10:14→20:28)
[2022-05-19] MEDS: FAMOTIDINE 20 MG/2 ML VIAL IV PUSH ×2 (10:15→20:28)
[2022-05-19] MEDS: DOXYCYCLINE HYCLATE 100 MG TABLET PO ×2 (10:15→20:28)
--- NOTE | 2022-05-19 12:38 | PM.IMPN ---
Progress Note: A&P Assessment and Plan (1) RSV (acute bronchiolitis due to respiratory syncytial virus): Code(s): J21.0 - Acute bronchiolitis due to respiratory syncytial virus Status: Acute Assessment and Plan: Patient tested positive for RSV on 05/16/2022 Continue supplementary oxygen patient currently 95% on room air Continue albuterol with guaifenesin Solu-Medrol and umeclidinum PRN Tessalon perles ordered. (2) Pneumonia: Code(s): J18.9 - Pneumonia, unspecified organism Status: Acute Assessment and Plan: Continue Unasyn due to possible aspiration and doxycycline Continue supplementary oxygen as needed. Imaging indicates pneumonia If blood cultures are negative again tomorrow, pt. could likely be discharged if VSS and he feels better. (3) Obstructive sleep apnea: Code(s): G47.33 - Obstructive sleep apnea (adult) (pediatric) Status: Chronic Assessment and Plan: Continue BiPAP at night (4) RLS (restless legs syndrome): Code(s): G25.81 - Restless legs syndrome Status: Chronic Assessment and Plan: Continue home medication (5) Hypertension: Code(s): I10 - Essential (primary) hypertension Status: Chronic Assessment and Plan: Blood pressure stable Continue bumetanide Monitor with vital signs. Will adjust medication as needed (6) Parkinson's disease: Code(s): G20 - Parkinson's disease Status: Chronic Assessment and Plan: Continue home medication (7) Chronic obstructive pulmonary disease: Qualifiers: COPD type: unspecified COPD Qualified Code(s): J44.9 - Chronic obstructive pulmonary disease, unspecified Code(s): J44.9 - Chronic obstructive pulmonary disease, unspecified Status: Chronic Assessment and Plan: Worsened by RSV and pneumonia (8) Hypothyroidism: Code(s): E03.9 - Hypothyroidism, unspecified Status: Chronic Assessment and Plan: Continue home medication (9) Immunosuppressed status: Code(s): D84.9 - Immunodeficiency, unspecified Status: Chronic Assessment and Plan: Continue home medication Time Spent With Patient Time with patient: 15 - 25 minutes Subjective Date/time seen: 05/19/22 0840 This pt. was examined at the bedside today in interval assessment. He continues to complain of having a persistent cough and some mild dyspnea. He reports it is worse when he sleeps. He has not had any fevers, and he is currently stable on room air. He is on Unasyn, Doxy and steroids. His preliminary blood cultures are negative. A modified barium swallow was performed and he had signs of aspiration. He has been placed on Honey thickened liquids and pureed diet. He has no CP, N/V/D, lightheadedness, headache or dizziness. Review of Systems Review of Systems: All systems reviewed & are unremarkable except as noted in HPI and below Exam Narrative: GENERAL: This is a well-nourished, well-developed patient, in no apparent distress. HEAD: normocephalic, atraumatic. EYES: PERRL. Sclera clear/white. Vision is grossly intact. EARS: External ears normal, auditory canals clear and without drainage, TMs normal without perforation. Hearing grossly intact. NOSE: External nose normal with no obvious nasal discharge, nares without redness, no rhinorrhea. THROAT: Mucous membranes moist, posterior pharynx clear. NECK: Neck supple, non-tender without lymphadenopathy, masses or thyromegaly. CARDIOVASCULAR: Regular rate and rhythm without murmurs, gallops, or rubs. RESPIRATORY: Diminished with rhonchi present. GASTROINTESTINAL: Abdomen soft, non-tender, nondistended. Bowel sounds are active. No hepato-splenomegaly, or palpable masses. No guarding. SKIN: warm, intact with no suspicious lesions or rash, good texture and turgor. NEURO: awake, alert, and oriented to person, place and time. There were no obvious focal neurologic abnormalities.
[2022-05-19] MEDS: ALBUTEROL SULFATE NEB 2.5 MG/3 ML INH 5 MG INHALATION (13:48)
[2022-05-19] MEDS: ASPIRIN 81 MG ENTERIC TABLET PO (20:28)
[2022-05-19] MEDS: DOCUSATE SODIUM LIQ 100 MG/10 ML UDC PO (20:28)
[2022-05-19] MEDS: TAMSULOSIN HCL 0.4 MG CAPSULE PO (20:28)
[2022-05-19] MEDS: MELATONIN 5 MG TABLET PO (23:17)
[2022-05-20] MEDS: guaiFENesin/DEXTROMETHORPHAN 10 ML UDC PO ×3 (03:15→13:17)
[2022-05-20] MEDS: AMPICILLIN SULB 3 GM/NS 100 ML 3 GM/100 ML VIAL IVPB ×3 (03:15→14:41)
[2022-05-20] MEDS: LEVOTHYROXINE SODIUM 100 MCG TABLET PO (05:38)
[2022-05-20 05:47] VITALS: BP 116/52; PULSE 61; RESP 18; TEMP 36.4; O2SAT 98
[2022-05-20 05:53] LABS: Hemoglobin 11.2 g/dL (14.0-18.0); Mean Corpuscular HGB Conc 32.9 g/dl (32-36); Mean Corpuscular Hemoglobin 31.9 pg (26-34); Mean Corpuscular Volume 96.9 fl (80-100); Mean Platelet Volume 9.8 fl (7.4-10.4); Platelet Count Result 198 k/mm3 (150-375); Red Blood Count 3.51 M/mm3 (4.6-6.20); Red Cell Distribution Width 13.6 % (11.5-14.5); White Blood Count 5.8 K/mm3 (4.5-10.0)
[2022-05-20 05:57] LABS: Anion Gap 5 mmol/L (8-16); Blood Urea Nitrogen 22 mg/dL (9-20); Calcium 7.9 mg/dL (8.4-10.2); Carbon Dioxide 28 mmol/L (22-30); Chloride 106 mmol/L (98-107); Estimated CRCL calculation 52 ml/min; Estimated Glomerular Filt Rate > 60; Glucose 92 mg/dL (65-110); Sodium 139 mmol/L (137-145)
[2022-05-20] MEDS: rOPINIRole HCL 1 MG TABLET 3 MG PO ×3 (08:32→17:30)
[2022-05-20] MEDS: HYDROXYCHLOROQUINE SULFATE 200 MG TABLET 400 MG PO (08:33)
[2022-05-20] MEDS: GABAPENTIN 300 MG CAPSULE PO ×3 (08:33→17:29)
[2022-05-20] MEDS: carBAMazepine 200 MG TABLET PO (08:33)
[2022-05-20] MEDS: DOXYCYCLINE HYCLATE 100 MG TABLET PO (08:33)
[2022-05-20] MEDS: predniSONE 20 MG TABLET 40 MG PO (08:33)
[2022-05-20] MEDS: FAMOTIDINE 20 MG/2 ML VIAL IV PUSH (08:35)
[2022-05-20] MEDS: CARBIDOPA/LEVODOPA 25/100 MG TABLET 2 TABLET PO ×3 (08:35→17:29)
[2022-05-20] MEDS: PANTOPRAZOLE SODIUM IV 40 MG VIAL IV PUSH (08:36)
[2022-05-20] MEDS: ALBUTEROL SULFATE NEB 2.5 MG/3 ML INH 5 MG INHALATION (09:00)
[2022-05-20 09:47] VITALS: PULSE 75; RESP 18
[2022-05-20 10:00] VITALS: PULSE 75; RESP 18
[2022-05-20 12:12] VITALS: PULSE 61; O2SAT 95
[2022-05-20] MEDS: ACETAMINOPHEN 325 MG TABLET 650 MG PO (13:20)
[2022-05-20 14:00] VITALS: BP 145/59; PULSE 62; RESP 18; TEMP 36.6; O2SAT 98
--- NOTE | 2022-05-20 16:55 | PM.DS ---
DS: Admitting Diagnosis Discharge Date 05/20/22 Admitting Diagnosis Cough and SOB DS: Discharge Diagnosis Discharge Diagnosis (1) RSV (acute bronchiolitis due to respiratory syncytial virus): Code(s): J21.0 - Acute bronchiolitis due to respiratory syncytial virus Status: Acute (2) Pneumonia: Code(s): J18.9 - Pneumonia, unspecified organism Status: Acute (3) Obstructive sleep apnea: Code(s): G47.33 - Obstructive sleep apnea (adult) (pediatric) Status: Chronic (4) RLS (restless legs syndrome): Code(s): G25.81 - Restless legs syndrome Status: Chronic (5) Hypertension: Code(s): I10 - Essential (primary) hypertension Status: Chronic (6) Parkinson's disease: Code(s): G20 - Parkinson's disease Status: Chronic (7) Chronic obstructive pulmonary disease: Qualifiers: COPD type: unspecified COPD Qualified Code(s): J44.9 - Chronic obstructive pulmonary disease, unspecified Code(s): J44.9 - Chronic obstructive pulmonary disease, unspecified Status: Chronic (8) Hypothyroidism: Code(s): E03.9 - Hypothyroidism, unspecified Status: Chronic (9) Immunosuppressed status: Code(s): D84.9 - Immunodeficiency, unspecified Status: Chronic (10) Dysphagia: Code(s): R13.10 - Dysphagia, unspecified Status: Acute DS: Summary Hospital Course Reason for hospitalization: 82yo male with COPD, CHF, CAD, Parkinson's disease and prior episodes dysphagia who presented to the ER from the wool brusher's office with complaint of nonproductive cough and shortness of breath for 2.5 weeks.??Please see H&P for details Hospital Course: The patient was afebrile in the ER and maintaining oxygen saturations on room air.? His RSV PCR was positive. COVID and influenza were negative. .? His white count was 16,000 and his chest x-ray demonstrated no acute process but CT of the chest/abdomen/pelvis demonstrated patchy airspace disease of the right upper and lower lobe suspicious for pneumonia.? Thickened pylorus with mucosal enhancement suspicious for peptic ulcer disease, BPH and non obstructive right nephrolithiasis with focal soft tissue density in the left lateral abdominal wall 3.4 cm consistent with hematoma that was noted on physical exam.? He was started on abx. BCx NGTD. WBC normalized. Electrolytes were normal and BNP 312. Troponin negative x 2. He underwent a MBS showing that patient had difficulty managing bolus orally with spillage to lateral sulci with all consistencies. He had flash penetration with thin liquids. It was recommended he have a pureed diet with honey thickened liquids. Swallowing precautions recommended. Diet was adjusted. Concern for aspiration pneumonia. Patient had clinical improvement. He was able to be discharged home on 05/20/2022 with his family. Family in the room hospital course and follow-up plan discussed. All questions were answered to their satisfaction. Status at Discharge Cognitive/behavioral status at discharge: Stable Time Spent with Patient Time attestation: Total time spent providing and/or coordinating discharge services: 35 minutes Time spent: Greater than 30 minutes Exam Narrative: AF Gen - NARD Chest - CTA bilaterally, nml RR CV - RRR S1/S2 Abd - Soft, NT/ND, Positive BS Ext - No pedal edema Neuro - Alert and oriented. Nonfocal exam. Psych - Nml mood and affect Skin - Warm and dry DS: Data Data Completed and Pending Labs on day of discharge: Labs from last 24 hours 05/20/22 05/20/22 05:11 05:11 WBC 5.8 RBC 3.51 L Hgb 11.2 L Hct 34.0 L MCV 96.9 MCH 31.9 MCHC 32.9 RDW 13.6 Plt Count 198 MPV 9.8 Sodium 139 Potassium 4.0 Chloride 106 Carbon Dioxide 28 Anion Gap 5 L BUN 22 H Creatinine 0.90 Estim Creat Clear Calc 52 Estimated GFR > 60 Glucose 92 Calcium 7.9 L Magnesium 2.0
== END 2022-05-20 18:33 | disposition home or self-care (01) | DRG 202 ==
LOC: ANHED 19:36 → ANH3MEDSUR 23:22 → ANH3MED 05-17 00:16
PROVIDERS: Emergency Medicine; Internal Medicine; Admitting Provider Internal Medicine; Emergency Provider Emergency Medicine; PCP Internal Medicine; Visit Provider Internal Medicine
DX: J21.0 Acute bronchiolitis due to respiratory syncytial virus (principal); J18.9 Pneumonia, unspecified organism; D84.9 Immunodeficiency, unspecified; J43.9 Emphysema, unspecified; E03.9 Hypothyroidism, unspecified; G20 Parkinson's disease; G47.33 Obstructive sleep apnea (adult) (pediatric); G25.81 Restless legs syndrome; H53.2 Diplopia; I25.10 Atherosclerotic heart disease of native coronary artery without angina pectoris; I50.9 Heart failure, unspecified; K22.70 Barrett's esophagus without dysplasia; K21.9 Gastro-esophageal reflux disease without esophagitis; M06.9 Rheumatoid arthritis, unspecified; R13.10 Dysphagia, unspecified; S30.1XXD Contusion of abdominal wall, subsequent encounter; W19.XXXD Unspecified fall, subsequent encounter; Z79.82 Long term (current) use of aspirin; Z95.1 Presence of aortocoronary bypass graft; Z90.49 Acquired absence of other specified parts of digestive tract; Z87.19 Personal history of other diseases of the digestive system; Z98.41 Cataract extraction status, right eye; Z98.42 Cataract extraction status, left eye; Z96.1 Presence of intraocular lens; Z20.822 Contact with and (suspected) exposure to COVID-19; Z87.891 Personal history of nicotine dependence
CPT/HCPCS: 36415; 71046; 71260; 74177; 80048; 80053; 83735; 83880; 84484; 85025; 85027; 85610; 85730; 87040; 87637; 92611; 93005; 94640; 96367; 97161; 97165; A9270; C9113; G0378; J0295; J2405; J2543; J2930; J7512; Q9967

== ENCOUNTER 2022-07-18 10:00 | Outpatient (RCR) | payer MEDICARE, SELFPAY ==
--- NOTE | 2022-05-29 11:10 | BUSTOPEVAL1 ---
Assessment and note entered by Nehal Wiley, [employer] WORK[employer] Evaluation Information Assessment Status Evaluation Diagnosis Dysphagia Subjective Information Patient reports that he barely passed the swallow test at the hospital. He reports that he was diagnosed with double pneumonia (right upper lobe/ left lower lobe) and RSV 05/17 and was discharged 05/20. Daughter reports that she and the patient went to [place] in April and then was taken to the ER there twice in April for CHF, legs opening with fluid weeping, then O2 saturation began to drop approximately 84%. Reported Pain Level Pain Score 0: Self Report Assessment ST Clinical Summary BEDSIDE SWALLOW EVALUATION This patient was seen for a Bedside Swallow Evaluation as follow-up from inpatient stay at the beginning of May. Patient has a history of Parkinson's disease and has been seen for voicing and swallowing in the past. Upon this admission, 05/17, patient was diagnosed with COVID and RSV and was hospitalized for several days. He was seen for a Modified Barium Swallow study on 05/17 which found flash penetration on thin liquids and reduced oral coordination. Due to his overall weakness and risk for aspiration, he was placed on Pureed Diet, Level 4, and Moderately Thick Liquids, Level 3, IDDSI levels. Daughter reported that at the time the thickener was recommended, Moderately Thick gel was not available so she purchased Mildly Thick gel and has been using that successfully since discharge. She also cuts patient's solid food into minced pieces rather than pureeing it, and she feels this has been successful as well. This evaluation is for follow-up swallowing therapy and for diet advancement. Today the patient consumed soft, crumbly solid of nichole cracker, alternating with Mildly Thick Liquid. He exhibited no signs of aspiration, no coughing or throat clearing, voice remained clear, and oral cavity was adequately cleared. Therapist recommended to patient and daughter continue to cut
--- NOTE | 2022-06-20 09:59 | PTOPEVAL1 ---
Assessment and note entered by Edie Thapa, PT Evaluation Information Assessment Status Evaluation Diagnosis repeated falls Onset 6 months ago Subjective Information have had 5 falls in the past month; tripped over small step on air plane,shoe caught on carpet; recent hospitalization with pneumonia and RSV; weakness and decreased endurance; previously when he has fallen, was able to get up off the floor, but past few times, required assist to get up from floor; lives with daughter and she is home with him; recently started using the walker; Reported Pain Level Pain Score Self Report no pain Assessment PT Clinical Summary Hiren has the diagnosis of frequent falls. He has been hospitalized with pneumonia and RSV, with gradual decrease in strength and mobility, with 5 falls in past month. Previously used a cane, but now using the rollator walker. He lives with his daughter and she is home with him most of the time. His goal is to return to playing horse shoes. His daughter Kaya is very supportive to pt. With the evaluation, his 2 minute walking test distance is 460', 5 reps sit/stand time is WNL, but unsafe with loss of balance and falling into the chair. Wheat balance score of 45/56. He has general weakness in R and L LE. Poor technique transfer sit/stand. Skilled PT services are indicated to increase LE strength, gait and balance skills, to improve safety with mobility and education for HEP and safe mobility. Plan of Care Interventions Gait Training,Neuro Re-education,Patient/Caregiver Education,Therapeutic Activities,Therapeutic Exercise PT Services Indicated Yes Treatment Frequency and 2x/wk for 4 weeks Duration These treatments will address the objective and functional deficits as defined above. The patient will be advanced safely and appropriately in order for the patient to progress towards his/her prior level of function. Additional exercises will be introduced and as well as a comprehensive home exercise program upon discharge, if needed, ?to ensure carryover of functional gains achieved in the clinic. This treatment plan has been reviewed and agreement upon by the patient.
--- NOTE | 2022-06-26 16:19 | STOPDC ---
Assessment and note entered by MAYCOL Arana Evaluation Information Assessment Status Discharge Reported Pain Level Pain Score 0: Self Report Assessment ST Clinical Summary TREATMENT SESSION AND DISCHARGE SUMMARY The pateint has been seen for an initial outpatient evaluation and eight swallowing treatment sessions for swallowing dysfunction. He had been hospitalized with pneumonia and a Modified Barium Swallow study revealed risk for aspiration on thin liquids. He was placed on a modified diet secondary to overall weakness and mildly thick (nectar) liquids which he followed at home. He was evaluated at this outpatient setting and began dysphagia therapy including VitalStim to the throat along with laryngeal adduction, laryngeal elevation, and base of tongue retraction exercises to increase the strength of the swallows. Patient's attendance was consistent and family support was exceptional. Today the patient received 45 minutes of VitalStim to the throat at up to 13.0 mA with no adverse effects. Family forgot to bring cashews for patient but he tolerated three cups of water throughout the session with a cough only one time at end of session, which in general was unusual as he had not coughed on water throughout this period. Patient completed all exercises with 100% accuracy for good strength and loudness. Patient is discharged this date with all goals achieved and no further Speech Therapy indicated. He is discharged to home program as needed and allowed to attempt various foods and liquids as desired with daughter to monitor. Plan of Care ST Services Indicated No
--- NOTE | 2022-07-04 14:46 | PCPTNOTE ---
Patient called & cancelled scheduled appointment this date due to not having transportations
--- NOTE | 2022-07-18 10:40 | PTOPDC ---
Assessment and note entered by Edie Thapa, PT Evaluation Information Assessment Status Discharge Diagnosis repeated falls Onset 6 months ago Subjective Information Hiren reports: balance and walking are much better, walking without the cane or walker, but will use them if tired or going a long ways; no falls; steps are easy now; doing all the exercises at home; no problems with anything at home with getting around; ready to be completed with therapy; Reported Pain Level Pain Score 0: Self Report Assessment PT Clinical Summary Hiren has received 8 PT sessions. He has improved in all areas since the initial evaluation: R and L LE strength, sit/stand transfer skill, safety with turning to sit down, gait and balance skills, no longer requires an assistive device. Education has been completed for HEP, safety with mobility and LSVT exercises. Discharge PT services. Plan of Care PT Services Indicated No
== END 2022-08-11 11:05 | disposition home or self-care (01) ==
LOC: ANHPT 10:00
PROVIDERS: PCP Internal Medicine; Visit Provider Internal Medicine
DX: R13.10 Dysphagia, unspecified (principal)
CPT/HCPCS: 92526; 92610; 97110; 97112; 97116; 97161; 97530

== ENCOUNTER 2022-10-05 11:54 | Emergency (ER) | payer MEDICARE, SELFPAY ==
--- NOTE | ~2022-10-05 | XR_ITS ---
EXAMINATION: XR chest 2V DATE: 10/05/2022 12:14 INDICATION: Right chest pain. TECHNIQUE: Frontal and lateral views of the chest were obtained. COMPARISON: Chest 2 views 05/16/2022 FINDINGS: A calcified right lung nodule is consistent with old granulomatous disease. No pleural effu joe or pneumothorax. The heart size is normal. Median sternotomy wires and mediastinal surgical clip s are seen, likely from prior coronary artery bypass grafting. Surgical clips in the right upper quad rant are likely from cholecystectomy. IMPRESSION: 1. No acute cardiopulmonary disease. Reviewed, dictated and finalized at location A.
--- NOTE | 2022-10-05 11:56 | ECG_ITS ---
Measurements Intervals [place] Rate: 63 P: 37 MO: 223 QRS: -51 QRSD: 129 T: 68 QT: 433 QTc: 446 Interpretive Statements SINUS RHYTHM WITH FIRST DEGREE AV BLOCK LEFT ANTERIOR FASCICULAR BLOCK BASELINE ARTIFACT- I, III, AVR, AVL, AVF ABNORMAL ECG COMPARED TO ECG 05/16/2022 13:10:38 FIRST DEGREE AV BLOCK NOW PRESENT LEFT ANTERIOR FASCICULAR BLOCK NOW PRESENT Electronically Signed On 10-05-2022 13:49:11 CDT by Jaylen Mata D.O.
[2022-10-05 11:57] VITALS: BP 143/61; PULSE 73; RESP 18; TEMP 36.4; O2SAT 100
[2022-10-05 12:09] LABS: Basophils Percent Auto 0.4 % (0.2-1.2); Eosinophils Absolute Auto 0.2 K/mm3 (0-0.3); Eosinophils Percent Auto 2.7 % (0-4.4); Hematocrit 43.7 % (42.0-52.0); Hemoglobin 14.6 g/dL (14.0-18.0); Immature Granulocyte Absolute 0.01 K/mm3 (0.00-0.031); Immature Granulocyte Percent A 0.2 % (0-0.5); Lymphocytes Absolute Auto 1.48 K/mm3 (0.9-3.2); Lymphocytes Percent Auto 26.5 % (18.3-44.2); Mean Corpuscular HGB Conc 33.4 g/dl (32-36); Mean Corpuscular Hemoglobin 32.5 pg (26-34); Mean Corpuscular Volume 97.3 fl (80-100); Mean Platelet Volume 10.5 fl (7.4-10.4); Monocytes Absolute Auto 0.7 K/mm3 (0.1-0.6); Monocytes Percent Auto 11.8 % (2.6-8.5); Neutrophils Absolute Auto 3.3 K/mm3 (1.3-6.7); Neutrophils Percent Auto 58.4 % (45.5-73.1); Platelet Count Result 151 k/mm3 (150-375); Red Blood Count 4.49 M/mm3 (4.6-6.20); Red Cell Distribution Width 13.1 % (11.5-14.5); White Blood Count 5.6 K/mm3 (4.5-10.0)
[2022-10-05 12:20] LABS: INR 0.9; Prothrombin Time 12.6 Seconds (11.1-14.7)
[2022-10-05 12:21] LABS: Partial Thromboplastin Time 31.7 SECONDS (22.3-36.8)
[2022-10-05 12:24] VITALS: PULSE 60
[2022-10-05 12:25] VITALS: O2SAT 98
[2022-10-05 12:25] LABS: Alanine Aminotransferase 11 U/L (6-50); Albumin Level 4.5 g/dL (3.5-5.1); Alkaline Phosphatase 148 U/L (38-126); Anion Gap 6 mmol/L (8-16); Aspartate Amino Transferase 28 U/L (17-59); Bilirubin,Total 0.7 mg/dL (0.2-1.3); Blood Urea Nitrogen 21 mg/dL (9-20); Calcium 8.6 mg/dL (8.4-10.2); Carbon Dioxide 28 mmol/L (22-30); Chloride 102 mmol/L (98-107); Estimated CRCL calculation 53 ml/min; Estimated Glomerular Filt Rate > 60; Glucose 87 mg/dL (65-110); Lipase 30 U/L (23-300); Potassium 4.5 mmol/L (3.4-5.0); Sodium 136 mmol/L (137-145)
[2022-10-05] MEDS: ASPIRIN 81 MG CHEWABLE TABLET 324 MG PO (12:28)
[2022-10-05 12:35] LABS: Troponin I < 0.012 ng/mL (0.000-0.034)
--- NOTE | 2022-10-05 13:09 | ED.GENADULT ---
HPI - General Adult General Chief complaint: Chest Pain Stated complaint: chest pain Time Seen by Provider: 10/05/22 12:03 Source: patient, RN notes reviewed and old records reviewed Mode of arrival: ambulatory Limitations: no limitations History of Present Illness HPI narrative: This is an 82 year old male with history of CAD, CABG who presents for evaluation of chest pain. Patient states around 930 am he developed burning chest pain that lasted 10 minutes. He states chest pain but he seems to be pointing epigastric. He denies radiating pain. HE denies associated sweating, nausea, vomiting, shortness of breath or palpitations. He does not remember is this pain is similar to pain he had with CABG. He denies having recent chest pain or shortness of breath exertion. His bus driver/monitor is Dr. Mohr and he was seen in clinic 2-3 weeks ago. Related Data Home Medications Medication Instructions Recorded Confirmed aspirin 81 mg tablet,delayed 81 mg PO QHS 03/23/19 07/22/22 release (Aspir-Low) tamsulosin 0.4 mg capsule 0.4 mg PO HS 04/24/20 07/22/22 gabapentin 300 mg capsule 300 mg PO TID 05/15/20 07/22/22 bumetanide 1 mg tablet 1 mg PO DAILY 12/17/20 07/22/22 carbidopa ER 25 mg-levodopa 100 mg 2 tablet PO TID 05/16/22 07/22/22 tablet,extended release docusate sodium 100 mg capsule 100 mg PO HS 05/16/22 07/22/22 (Stool Softener) Allergies Allergy/AdvReac Type Severity Reaction Status Date / Time abatacept AdvReac [place] Verified 09/08/22 14:59 Review of Systems Constitutional: Constitutional: Denies weakness Cardiovascular: Cardiovascular: Denies syncope, Denies rapid heart rate, Denies irregular heart rhythm, Denies leg edema and Denies dyspnea Respiratory: Respiratory: Denies chest congestion, Denies hemoptysis, Denies excessive phlegm production and Denies dyspnea Gastrointestinal: Gastrointestinal: Denies hematochezia, Denies diarrhea and Denies vomiting Genitourinary: Genitourinary: Denies hematuria, Denies dysuria, Denies penile discharge and Denies testicular pain Musculoskeletal: Musculoskeletal: Denies joint swelling, Denies loss of height and Denies muscle weakness Neurologic: Denies syncope, Denies focal weakness and Denies weakness PMFSH Past Medical History Medical History Arthritis Barretts esophagus Carpal tunnel syndrome on both sides CHF (congestive heart failure) Echo May 2020: Normal left ventricular systolic function EF 69%, moderate concentric left ventricular hypertrophy, mild left ventricular enlargement, paradoxical septal motion consistent with bundle branch block, diastolic dysfunction grade 1, technically difficult study Chronic obstructive pulmonary disease Mild emphysematous changes noted on CT scan Coronary artery disease Degenerative joint disease of cervical and lumbar spine Dysphagia Gastroesophageal reflux disease Generalized osteoarthritis of multiple sites Hiatal hernia with gastroesophageal reflux disease and esophagitis Hypertension Hypothyroidism Mixed restrictive and obstructive lung disease Obstructive sleep apnea Parkinson disease Recurrent falls Recurrent falls Rheumatoid arthritis Rheumatoid arthritis of unspecified site with involvement of other organs and systems RLS (restless legs syndrome) Surgical History Surgical History H/O eye surgery Left eye to correct double vision History of 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
[2022-10-05 13:28] VITALS: BP 129/64; PULSE 62; RESP 18; O2SAT 98
[2022-10-05 13:59] VITALS: BP 135/70; PULSE 60; RESP 17; O2SAT 100
[2022-10-05 15:35] LABS: Troponin I < 0.012 ng/mL (0.000-0.034)
[2022-10-05 16:10] VITALS: BP 152/74; PULSE 56; RESP 18; O2SAT 100
== END 2022-10-05 16:05 | disposition home or self-care (01) ==
PROVIDERS: Emergency Medicine; Emergency Provider General Practice; PCP Internal Medicine
DX: R10.13 Epigastric pain (principal); I25.10 Atherosclerotic heart disease of native coronary artery without angina pectoris; I50.9 Heart failure, unspecified; J44.9 Chronic obstructive pulmonary disease, unspecified; G20 Parkinson's disease; G47.33 Obstructive sleep apnea (adult) (pediatric); G25.81 Restless legs syndrome; E03.9 Hypothyroidism, unspecified; K21.9 Gastro-esophageal reflux disease without esophagitis; K44.9 Diaphragmatic hernia without obstruction or gangrene; M05.60 Rheumatoid arthritis of unspecified site with involvement of other organs and systems; M47.816 Spondylosis without myelopathy or radiculopathy, lumbar region; M47.812 Spondylosis without myelopathy or radiculopathy, cervical region; Z95.1 Presence of aortocoronary bypass graft; Z90.49 Acquired absence of other specified parts of digestive tract; Z98.42 Cataract extraction status, left eye; Z98.41 Cataract extraction status, right eye; Z96.1 Presence of intraocular lens; Z87.891 Personal history of nicotine dependence; I44.0 Atrioventricular block, first degree; I44.4 Left anterior fascicular block
CPT/HCPCS: 36415; 71046; 80053; 83690; 84484; 85025; 85610; 85730; 93005; 99284; A9270

== ENCOUNTER 2022-11-04 00:29 | Day surgery (SDC) | payer MEDICARE, SELFPAY ==
[2022-10-23 11:08] VITALS: BMI 30.9
--- NOTE | 2022-11-03 13:02 | WPDANESEPPF ---
Anes - Initial Pre Proc Eval Procedure: Operation Date: 11/04/22 07:30 Proposed Procedures p Esophagogastroduodenoscopy - Caio Padilla MD Date/Time: 11/03/22 13:02 Surgeon: Caio Padilla MD Pre Op Diagnosis: GERD, Samuels's Esophagus Patient Data Age: 82 Gender: M Height: 1.65 m Weight: 84.5 kg Allergies Allergy/AdvReac Type Severity Reaction Status Date / Time abatacept AdvReac Flushing Verified 11/04/22 06:34 Home Medications Medication Instructions Recorded Confirmed Type aspirin 81 mg tablet,delayed 81 mg PO QHS 03/23/19 11/04/22 History release (Aspir-Low) tamsulosin 0.4 mg capsule 0.4 mg PO HS 04/24/20 11/04/22 History gabapentin 300 mg capsule 300 mg PO QID 05/15/20 11/04/22 History carbamazepine 200 mg tablet 200 mg PO Q12H #60 tabs 09/14/20 11/04/22 Rx bumetanide 1 mg tablet 1 mg PO DAILY 12/17/20 11/04/22 History levothyroxine 75 mcg tablet 75 mcg PO DAILY #90 tabs 03/17/22 11/04/22 Rx albuterol sulfate 90 mcg/actuation 1 - 2 puff inhalation Q4-6H PRN 04/14/22 11/04/22 Rx aerosol inhaler shortness of breath or wheezing #8.5 grams carbidopa ER 25 mg-levodopa 100 mg 2 tablet PO TID 05/16/22 11/04/22 History tablet,extended release docusate sodium 100 mg capsule 100 mg PO TID 05/16/22 11/04/22 History (Stool Softener) ropinirole 1 mg tablet 3 mg PO QID Restless Leg(S) #30 05/20/22 11/04/22 Rx tabs tiotropium bromide 18 mcg capsule 1 cap inhalation DAILY #60 05/27/22 11/04/22 Rx with inhalation device inhalations hydroxychloroquine 200 mg tablet 400 mg PO DAILY #180 tabs 06/17/22 11/04/22 Rx (Plaquenil) famotidine 20 mg tablet 20 mg PO BID 3 months #180 tabs 07/22/22 11/04/22 Rx pantoprazole 40 mg tablet,delayed 40 mg PO BID 3 months #180 tabs 07/22/22 11/04/22 Rx release nitroglycerin 0.4 mg sublingual 0.4 mg sublingual PRN PRN Chest 10/23/22 11/04/22 History tablet Pain Patient hx anesthesia problems: none Family hx anesthesia problems: none Results Review: All pre-operative results and documents have been reviewed as part of the pre-operative evaluation. [facility] Past Medical History Medical History Arthritis Barretts esophagus Carpal tunnel syndrome on both sides CHF (congestive heart failure) Echo May 2020: Normal left ventricular systolic function EF 69%, moderate concentric left ventricular hypertrophy, mild left ventricular enlargement, paradoxical septal motion consistent with bundle branch block, diastolic dysfunction grade 1, technically difficult study Chronic obstructive pulmonary disease Mild emphysematous changes noted on CT scan Coronary artery disease Degenerative joint disease of cervical and lumbar spine Dysphagia Gastroesophageal reflux disease Generalized osteoarthritis of multiple sites Hiatal hernia with gastroesophageal reflux disease and esophagitis Hypertension Hypothyroidism Mixed restrictive and obstructive lung disease Obstructive sleep apnea Parkinson disease Recurrent falls Recurrent falls Rheumatoid arthritis Rheumatoid arthritis of unspecified site with involvement of other organs and systems RLS (restless legs syndrome) Surgical History Surgical History H/O eye surgery Left eye to correct double vision 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
[2022-11-04 06:23] VITALS: BP 135/64; PULSE 59; RESP 16; TEMP 36.4; O2SAT 98; BMI 30.6
[2022-11-04] MEDS: LACTATED RINGERS 1,000 ML 150 ML IV CONT (06:46)
--- NOTE | 2022-11-04 07:28 | WPDHPUPDATE1 ---
History and Physical Update Update Date/Time: 11/04/22 07:28 History and Physical has been reviewed, including an updated exam of the patient. There are NO changes in the patient's condition. Risks, benefits, and alternatives have been discussed and questions answered. Patient agrees to proceed with procedure.
[2022-11-04 07:45] VITALS: BP 127/66; PULSE 57; RESP 18; O2SAT 98
[2022-11-04 07:55] VITALS: BP 123/70; PULSE 58; RESP 18; O2SAT 100
[2022-11-04 08:05] VITALS: BP 126/76; PULSE 56; RESP 18; O2SAT 99
== END 2022-11-04 08:10 | disposition home or self-care (01) ==
PROVIDERS: PCP Family Medicine; Visit Provider Internal Medicine Gastroenterology
PROC: 0DJ08ZZ Inspection of Upper Intestinal Tract, Via Natural or Artificial Opening Endoscopic (ICD-10-PCS; CPT 43235; principal; 2022-11-04 07:30)
DX: K21.9 Gastro-esophageal reflux disease without esophagitis (principal); K22.70 Barrett's esophagus without dysplasia; K44.9 Diaphragmatic hernia without obstruction or gangrene; R13.10 Dysphagia, unspecified; I11.0 Hypertensive heart disease with heart failure; I50.9 Heart failure, unspecified; G20 Parkinson's disease; E03.9 Hypothyroidism, unspecified; G47.33 Obstructive sleep apnea (adult) (pediatric); J44.9 Chronic obstructive pulmonary disease, unspecified; I25.10 Atherosclerotic heart disease of native coronary artery without angina pectoris; M06.9 Rheumatoid arthritis, unspecified; G25.81 Restless legs syndrome; Z79.82 Long term (current) use of aspirin; Z79.51 Long term (current) use of inhaled steroids; Z95.1 Presence of aortocoronary bypass graft; Z87.891 Personal history of nicotine dependence; E66.9 Obesity, unspecified; Z68.30 Body mass index [BMI] 30.0-30.9, adult
CPT/HCPCS: 43450; 43239; 88305; J2704; J7120

== ENCOUNTER 2023-01-15 10:44 | Outpatient (CLI) | payer MEDICARE, SELFPAY ==
--- NOTE | ~2023-01-15 | CT_ITS ---
EXAMINATION: CT lung screening DATE: 01/15/2023 11:05 INDICATION: Personal history nicotine dependence, prior smoker with 25 pack year history TECHNIQUE: Computed tomography (CT) of the chest was performed without intravenous contrast. The dose -length product (DLP) was 123.26 mGy-cm. 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 COMPARISON: 05/16/2022 FINDINGS: There is mild emphysema. A small area of bronchiectasis and scarring are noted in the right upper lobe. No suspicious pulmonary nodules are identified. The heart size is normal. There are patc hy airspace opacities of the mid and lower lung zones, consistent with atelectasis versus mild pulmon sushil edema. No pleural effusion or pneumothorax. Calcified pulmonary nodules and calcified right hilar and subcarinal lymph nodes are consistent with old granulomatous disease. Changes of coronary artery bypass grafting are noted. There is mild thoracic spondylosis. IMPRESSION: 1. Lung-RADS category 1: Negative. Continue annual screening with noncontrast low-dose chest CT in 12 months. Reviewed, dictated and finalized at location L. IMPRESSION: 1. Lung-RADS category 1: Negative. Continue annual screening with noncontrast l ow-dose chest CT in 12 months.
== END 2023-01-15 10:45 | disposition home or self-care (01) ==
LOC: ANHIMG 10:50
PROVIDERS: PCP Nurse Practitioner Family; Visit Provider Nurse Practitioner Family
DX: Z12.2 Encounter for screening for malignant neoplasm of respiratory organs (principal); Z87.891 Personal history of nicotine dependence
CPT/HCPCS: 71271

== ENCOUNTER 2023-02-01 17:05 | Emergency (ER) | payer MEDICARE, SELFPAY ==
--- NOTE | ~2023-02-01 | XR_ITS ---
EXAM: XR elbow RT min 3V DATE: 02/01/2023 18:40 HISTORY: fall on cement last night . COMPARISON: None available. FINDINGS: Normal mineralization. No fracture or dislocation. No lytic or blastic lesion. Degenerativ e change in the elbow joint. Triceps and lateral condylar enthesopathy. No erosion or periosteal [place]. Soft tissue swelling at the proximal posterior forearm. IMPRESSION: No acute osseous finding in the right elbow. Reviewed, dictated and finalized at location K.
[2023-02-01 17:25] VITALS: BP 154/75; PULSE 58; RESP 20; TEMP 36.1
--- NOTE | 2023-02-01 17:55 | ED.UPPEXIN ---
HPI - Extremity Injury (Upper) General Chief Complaint: Extremity Injury, Upper Stated Complaint: right elbow injury Time Seen by Provider: 02/01/23 17:55 Source: patient Mode of arrival: ambulatory Limitations: no limitations History of Present Illness HPI narrative: 82 y/o male with hx Parkinson's disease, CHF, COPD, RA presented for c/o right elbow pain after injury yesterday. States he tripped over a parking block and landed on the right forearm. States he woke this morning with more swelling and tenderness to the site. Denies deformity, open wounds, numbness, tingling or weakness. Reports normal ROM. Took Tylenol last night. Denies hitting head or LOC. Related Data Home Medications Medication Instructions Recorded Confirmed aspirin 81 mg tablet,delayed 81 mg PO QHS 03/23/19 02/01/23 release (Aspir-Low) tamsulosin 0.4 mg capsule 0.4 mg PO HS 04/24/20 02/01/23 gabapentin 300 mg capsule 300 mg PO QID 05/15/20 02/01/23 bumetanide 1 mg tablet 1 mg PO DAILY 12/17/20 02/01/23 carbidopa ER 25 mg-levodopa 100 mg 2 tablet PO TID 05/16/22 02/01/23 tablet,extended release docusate sodium 100 mg capsule 100 mg PO TID 05/16/22 02/01/23 (Stool Softener) nitroglycerin 0.4 mg sublingual 0.4 mg sublingual PRN PRN Chest 10/23/22 02/01/23 tablet Pain Allergies Allergy/AdvReac Type Severity Reaction Status Date / Time abatacept AdvReac Flushing Verified 02/01/23 17:34 Review of Systems Review of Systems: CONSTITUTIONAL: Denies body aches, fever, chills EYES: Denies visual changes ENT: Denies rhinorrhea, congestion CARDIOVASCULAR: Denies chest pain, palpitations, or edema. RESPIRATORY: Denies cough or dyspnea. GASTROINTESTINAL: Denies abdominal pain, nausea, vomiting, or diarrhea. SKIN: Denies rash, itching, or wounds. MUSCULOSKELETAL: reports right elbow pain/swelling; Denies back pain or myalgia. NEUROLOGIC: Denies headache, numbness, tingling, or weakness. All systems reviewed & are unremarkable except as noted in HPI and below PMFSH Past Medical History Medical History Arthritis Barretts esophagus Carpal tunnel syndrome on both sides CHF (congestive heart failure) Echo May 2020: Normal left ventricular systolic function EF 69%, moderate concentric left ventricular hypertrophy, mild left ventricular enlargement, paradoxical septal motion consistent with bundle branch block, diastolic dysfunction grade 1, technically difficult study Chronic obstructive pulmonary disease Mild emphysematous changes noted on CT scan Coronary artery disease Degenerative joint disease of cervical and lumbar spine Dysphagia Gastroesophageal reflux disease Generalized osteoarthritis of multiple sites Hiatal hernia with gastroesophageal reflux disease and esophagitis Hypertension Hypothyroidism Mixed restrictive and obstructive lung disease Obstructive sleep apnea Parkinson disease Recurrent falls Recurrent falls Rheumatoid arthritis Rheumatoid arthritis of unspecified site with involvement of other organs and systems RLS (restless legs syndrome) Surgical History Surgical History H/O eye surgery Left eye to correct double vision History of dental confucianism Dental implants History of four vessel coronary artery bypass graft History of Osvaldo fundoplication History of tonsillectomy and adenoidectomy History of uvulopalatopharyngoplasty Hx of cholecystectomy Status post cataract extraction of both eyes with insertion of intraocular lens Status post open reduction with internal fixation of fracture Knee cap Family History Family History Father Acute myocardial infarction, Onset Age: 84 Family history of coronary artery disease, Onset Age: 84 Mother Carcinoma of colon, Onset Age: 64 Sibling Family history of coronary artery diseas
--- NOTE | 2023-02-01 18:22 | PC.NURSE ---
1800- COLD ROLLER and myself talked to COLD ROLLER and RN at [facility], and they are expecting his arrival. pt left our facility with daughter, stable and ambulatory.
== END 2023-02-01 19:00 | disposition home or self-care (01) ==
PROVIDERS: Emergency Provider Nurse Practitioner Family; PCP Nurse Practitioner Family
DX: S50.01XA Contusion of right elbow, initial encounter (principal); W18.09XA Striking against other object with subsequent fall, initial encounter; Z87.891 Personal history of nicotine dependence; K22.70 Barrett's esophagus without dysplasia; J44.9 Chronic obstructive pulmonary disease, unspecified; I25.10 Atherosclerotic heart disease of native coronary artery without angina pectoris; K21.9 Gastro-esophageal reflux disease without esophagitis; M15.9 Polyosteoarthritis, unspecified; I11.0 Hypertensive heart disease with heart failure; I50.9 Heart failure, unspecified; G20 Parkinson's disease; M06.9 Rheumatoid arthritis, unspecified; G25.81 Restless legs syndrome; Z98.42 Cataract extraction status, left eye; Z98.41 Cataract extraction status, right eye; Z96.1 Presence of intraocular lens; Z79.82 Long term (current) use of aspirin
CPT/HCPCS: 73080; 99213; G0463

== ENCOUNTER 2023-02-17 12:12 | Outpatient (CLI) | payer MEDICARE, SELFPAY ==
--- NOTE | ~2023-02-17 | XR_ITS ---
Right Shoulder Technique: AP and scapular Y views were obtained. Clinical History: Injury Findings: No fracture or dislocation is seen. Osseous alignment is anatomic. There is moderate to adv anced AC joint degenerative change. There is mild glenohumeral joint degenerative change. Soft tissue s are unremarkable. Impression: No acute fracture seen. Degenerative changes, as above. Reviewed, dictated and finalized at location . Impression: No acute fracture seen. Degenerative changes, as above.
--- NOTE | ~2023-02-17 | XR_ITS ---
XR_[id number] 02/17/2023 12:44 Indication: Neck pain Procedure: 4 view cervical spine Comparison: No prior studies for comparison. Findings: Vertebral body heights are maintained. There is disc narrowing at multiple levels, most adv anced at C5-6 and C6-7. No prevertebral soft tissue swelling. Odontoid process is normal. There are p rominent bridging osteophytes anteriorly at multiple levels. No fracture or traumatic malalignment. L kevin apices are normal. Impression: 1: Moderate cervical spondylosis. Reviewed, dictated and finalized at location L. Impression: 1: Moderate cervical spondylosis.
== END 2023-02-17 12:13 | disposition home or self-care (01) ==
PROVIDERS: PCP Nurse Practitioner Family; Visit Provider Nurse Practitioner Family
DX: M43.02 Spondylolysis, cervical region (principal); S49.90XA Unspecified injury of shoulder and upper arm, unspecified arm, initial encounter; W19.XXXA Unspecified fall, initial encounter
CPT/HCPCS: 72040; 73030; 97110; 97530

== ENCOUNTER 2023-02-23 08:00 | Outpatient (RCR) | payer MEDICARE, SELFPAY ==
--- NOTE | 2023-01-23 12:23 | OPREHPOC ---
Outpatient Therapy Plan of Care This is a Multidisciplinary Plan of Care that may contain components documented by all disciplines (PT, OT, and ST.) PT Problem 1 PT Problem #1 Knowledge Deficit PT Goal 1 Goal Cobb with HEP Target Visit 4 PT Problem 2 PT Problem #2 Impaired Gait PT Goal 1 Goal Patient will ambulate consistently with spc in L UE for optimized safety and balance Target Visit 8 PT Goal 2 Goal Patient will demonstrate ability to look straight ahead and not at feet with ambulation to improve functional posture Target Visit 8 PT Problem 3 PT Problem #3 Impaired Balance PT Goal 1 Goal Improve Tinetti score by 5 points to reduce fall risk with ambulation Target Visit 8 PT Goal 2 Goal Demonstrate ability to maintain tandem stance on R LE for improved unilateral control during functional activity Target Visit 8
--- NOTE | 2023-01-23 12:24 | PTOPEVAL1 ---
Assessment and note entered by Nilson Arias, PT Evaluation Information Assessment Status Evaluation Diagnosis Parkinson' disease Onset December 2022 Subjective Information Reports that he had a fall in December. Daughter states that he has been having hallucinations which has led to some falls. He usually walks with a cane but has been very unsteady. He moved in with his daughter. Falls have become much more frequent . He has lost a lot of sense of smell and taste. He used to like to dance and throw horseshoes but cannot anymore. Reported Pain Level Pain Score 0: Self Report Assessment PT Clinical Summary Patient presents wit signs and symptoms consistent with progression of Parkinson's disease. Overall his strength is excellent but having trouble cognitively, posturally, and with balance/ proprioception. Will benefit from skilled therapy with emphasis on postural stability/mobility, proprioceptive training, and rotational/lateral gross movement training to reduce kyphotic posturing progression. Plan of Care Interventions Gait Training,Manual Therapy,Neuro Re-education, Patient/Caregiver Education,Therapeutic Activities, Therapeutic Exercise PT Services Indicated Yes Treatment Frequency and 2x/week for 4 weeks Duration These treatments will address the objective and functional deficits as defined above. The patient will be advanced safely and appropriately in order for the patient to progress towards his/her prior level of function. Additional exercises will be introduced and as well as a comprehensive home exercise program upon discharge, if needed, ?to ensure carryover of functional gains achieved in the clinic. This treatment plan has been reviewed and agreement upon by the patient.
--- NOTE | 2023-01-27 08:31 | PCPTNOTE ---
Patient did not show up for scheduled appointment this date. Called Pt and spoke with Pt. Pt thought his appointment was at 09:00. Confirmed with Pt his next appointment is on 01/29/23 @ 09:00.
[2023-02-23 08:05] VITALS: BP_SYST 85
--- NOTE | 2023-02-23 09:02 | OPREHPOC ---
Outpatient Therapy Plan of Care This is a Multidisciplinary Plan of Care that may contain components documented by all disciplines (PT, OT, and ST.) PT Problem 1 PT Problem #1 Knowledge Deficit PT Goal 1 Goal Waller with HEP Target Visit 4 Progress Met Comment 02-23-23 d/c gait/balance; eval R shoulder met goal continue towards goal for shoulder HEP PT Problem 2 PT Problem #2 Impaired Gait PT Goal 1 Goal Patient will ambulate consistently with spc in L UE foroptimized safety and balance Target Visit 8 Progress Met Comment 02-23-23 d/c gait/balance; eval R shoulder met goal; discontinue gait intervention PT Goal 2 Goal Patient will demonstrate ability to look straight ahead and not at feet with ambulation to improve functional posture Target Visit 8 Progress Met Comment 02-23-23 d/c gait/balance; eval R shoulder met goal with verbal cues and pt concentration discontinue gait intervention. PT Problem 3 PT Problem #3 Impaired Balance PT Goal 1 Goal Improve Tinetti score by 5 points to reduce fall risk with ambulation Target Visit 8 Progress Not Met Comment 02-23-23 d/c gait/balance; eval R shoulder improved by 4 points. discontinue intervention. PT Goal 2 Goal Demonstrate ability to maintain tandem stance on R LE for improved unilateral control during functional activity Target Visit 8 Progress Not Met Comment 02-23-23 d/c gait/balance; eval R shoulder discontinue gait intervention PT Problem 4 PT Problem #4 Pain PT Goal 1 Goal 02-23-23 d/c gait/balance; eval R shoulder NEW GOALS: 1* pt report pain R shoulder 4/10 at worst; PT Problem 5
--- NOTE | 2023-02-23 09:02 | PTOPEVAL1 ---
Assessment and note entered by Edie Thapa, PT Evaluation Information Assessment Status Evaluation Diagnosis Parkinson's disease; R shoulder pain Onset December 2022 Subjective Information no falls since started therapy; going to have MRI of shoulder next week; is R handed; R shoulder pain since fall at begin of Jan- landed on R elbow and then rolled onto shoulder; have had limited mobility of shoulders but worse since the fall; more problems putting dishes away from the supervisor toy parts former with walking, use the cane and wheeled walker- feel confident with both of them; Reported Pain Level Pain Score Self Report R shoulder Additional Pain Score Comments pain range of 0-8/10; at rest, no pain in shoulder, with moving arm, upper- lateral shoulder decrease pain with rest, tylenol; heat- not really help/ not used ice-- recommend use of ice PRN; is sleeping OK; shoulder is better than it was at first, but still bothering him; Assessment PT Clinical Summary Kellee has received PT sessions for the diagnosis of Parkinson's Disease- gait and balance issues. He improved with Tinetti balance score from 15 to 19/28; is using the cane or wheeled walker for ambulation; gait pattern of small step length, rounded shoulders and trunk with flexion of hips and knees; he is able to maintain head upright with cues and if he concentrates on it; education completed for HEP; The goals were partially met. Discharge treatment for gait/balance. Evaluation for R shoulder pain, s/p fall in Jan and landing on R elbow and then onto shoulder. He is R hand dominant. Shoulder pain has decreased since onset, but continues to have pain with moving his R arm to lift and do home chores/ activities. Sleeping has improved and the shoulder pain rarely wakes him up during the night He has decreased active ROM and strength of his R shoulder--all ranges. All shoulder motions increase pain, but shoulder flexion is the most painful motion. He has severe rounding of his cervical-thoracic and shoulder complex with poor GH positioning. His L shoulder ROM is also limited.
--- NOTE | 2023-03-05 08:37 | PCPTNOTE ---
Spoke with pt. on 03/05/23 regarding missed appointments on 03/04 and 03/05 and he noted that his MRI had revealed a rotator cuff tear and therapy was to be held. Pt. confirmed to cancel remaining appointments until he gets in to see MD for further assessment.
--- NOTE | 2023-03-05 10:13 | PCPTNOTE ---
called pt's home, he was not available, but talked with his daughter, who is caregiver--for him to continue with the stretching exercises at home for maintaining his shoulder ROM. She stated they are waiting for referral to ortho And that he has been doing his cane shoulder exercises. HOLD PT and will need new order to continue if ortho gives referral. Daughter voiced understanding.
--- NOTE | 2023-04-01 09:43 | PTOPDC ---
Assessment and note entered by Edie Thapa, PT Discharge Information Assessment Status Discharge - Pt Not Present Diagnosis Parkinson's disease; R shoulder pain Onset December 2022 Assessment PT Clinical Summary PHYSICAL THERAPY DISCHARGE Kellee has not returned for additional therapy after 02-23-23 progress report. Therefore, he will be discharged at this time. The goals were not addressed. Plan of Care PT Services Indicated No
== END 2023-04-01 10:18 | disposition home or self-care (01) ==
LOC: ANHPT 08:00
PROVIDERS: PCP Nurse Practitioner Family
DX: G20 Parkinson's disease (principal)
CPT/HCPCS: 97110; 97112; 97116; 97161; 97530; 99199

== ENCOUNTER 2023-03-03 09:51 | Outpatient (CLI) | payer MEDICARE, SELFPAY ==
--- NOTE | ~2023-03-03 | MR_ITS ---
MRI of the right shoulder Technique: Axial proton-density fat-sat images, coronal proton density fat-sat and T2 fat-sat images, and sagittal T1-weighted and T2 fat-sat images were acquired. Clinical History: Pain Findings: There is severe AC joint degenerative change. There is prominent bony destructive change at the distal clavicle. Small subacromial spur present. Coracoclavicular, coracoacromial, and coracohum eral ligaments appear to be intact. There is full-thickness tear involving nearly the entirety of the supraspinatus tendon, with fluid-fi lled gap measuring approximately 3.2 x 2.2 cm in extent. There is proximal interstitial propagation o f tear towards the myotendinous junction. Infraspinatus tendon is intact, without partial or full-thi ckness tear. Subscapularis tendon is intact, without definite partial or full-thickness tear. Tendon of the long head of the biceps is intact, with intra-articular tendinosis. No definite labral tear identified. Inferior glenohumeral ligament is intact. There is small to moderate glenohumeral joint effusion, wit h fluid passing through the rotator cuff defect into the subacromial/subdeltoid bursa. There is also fluid distention of the subscapularis recess. There is edematous change of the supraspinatus muscle b el. No definite fatty atrophy. Impression: Full-thickness tear involving essentially the entire supraspinatus tendon, as detailed above. There i s proximal interstitial propagation of the tear towards the myotendinous junction. Extensive amorphous edematous change of the supraspinatus muscle belly. Correlate for concomitant mus esequiel strain. Severe AC joint degenerative change. Reviewed, dictated and finalized at location M. Impression: Full-thickness tear involving essentially the entire supraspinatus tendon, as d etailed above. There is proximal interstitial propagation of the tear towards t he myotendinous junction. Extensive amorphous edematous change of the supraspinatus muscle belly. Correla te for concomitant muscle strain. Severe AC joint degenerative change.
== END 2023-03-03 09:52 | disposition home or self-care (01) ==
LOC: ANHIMG 09:54
PROVIDERS: PCP Nurse Practitioner Family; Visit Provider Nurse Practitioner Family
DX: S46.011A Strain of muscle(s) and tendon(s) of the rotator cuff of right shoulder, initial encounter (principal); M24.111 Other articular cartilage disorders, right shoulder
CPT/HCPCS: 73221

== ENCOUNTER 2023-05-15 12:01 | Outpatient (CLI) | payer MEDICARE, SELFPAY ==
--- NOTE | ~2023-05-15 | XR_ITS ---
Right Knee Technique: AP, lateral, and sunrise views were obtained. Clinical History: Pain COMPARISON: 03/06/2019 Findings: No acute fracture or dislocation is seen. Probable old, healed fracture deformity the proxi mal fibular shaft, unchanged. Osseous alignment is anatomic. There is mild degenerative change in the patellofemoral compartment and lateral joint line. Soft tissues are unremarkable. No joint effusion is seen. Impression: Mild degenerative changes, as above. Reviewed, dictated and finalized at location M. NSE CLERK Impression: Mild degenerative changes, as above.
== END 2023-05-15 12:02 | disposition home or self-care (01) ==
PROVIDERS: PCP Nurse Practitioner Family; Visit Provider Orthopaedic Surgery
DX: M17.11 Unilateral primary osteoarthritis, right knee (principal)
CPT/HCPCS: 73564

== ENCOUNTER 2023-05-21 07:30 | Outpatient (RCR) | payer MEDICARE, SELFPAY ==
--- NOTE | 2023-04-16 08:12 | PTOPEVAL1 ---
Assessment and note entered by Hiro Tapia Evaluation Information Assessment Status Evaluation Diagnosis right rotator cuff strain, right shoulder pain Onset 01/09/23 Subjective Information Pt. reports that he fell at the beginning of January, onto the right shoulder. He reports that he experienced increasing right shoulder pain since the fall. He reports that pain is increased with reaching overhead with the right u. e. He states that he did have an MRI on the right shoulder which revealed a rotator cuff tear. He states that he is not a candidate for rotator cuff repair because of his age. He reports that he lives with his daughter. He states that he is right hand dominant. He states that he has difficulty with doing anything overhead with the right arm. He states that pain in the right shoulder will wake him at night. He states that he enjoyed playing horseshoes prior to his injury, but can no longer play due to pain and weakness. He reports that his goal for therapy is to be able to decrease his shoulder pain and reach overhead with the right arm. Reported Pain Level Pain Score 2: Self Report Assessment PT Clinical Summary Pt. is an 83 year old male who enters the clinic with right shoulder pain due to rotator cuff tear after a fall. He presents with functional decline , impaired right shoulder ROM, impaired proximal right u.e. strength and pain on this date. Continued skilled PT is indicated in order to improve these areas to optimize right u.e. function with ADL performance as pt. is not a surgical candidate. Plan of Care Interventions Electrical Stimulation,Hot Pack/Cold Pack,Manual Therapy,Neuro Re-education,Patient/Caregiver Educati,Therapeutic Activities,Therapeutic Exercise,Self-Care/Home Management PT Services Indicated Yes Treatment Frequency and 2x/week x 10 visits Duration These treatments will address the objective and functional deficits as defined above. The patient will be advanced safely and appropriately in order for the patient to progress towards his/her prior level of function. Additional exercises will be introduced and as well as a comprehensive home exercise program upon discharge, if needed, ?to ensure carryover of functional gains achieved in the clinic. This treatment plan has been reviewed and agreement upon by the patient.
--- NOTE | 2023-04-16 08:16 | OPREHPOC ---
Outpatient Therapy Plan of Care This is a Multidisciplinary Plan of Care that may contain components documented by all disciplines (PT, OT, and ST.) PT Problem 1 PT Problem #1 Knowledge Deficit PT Goal 1 Goal Pt. will be independent with a HEP addressing proximal u.e. strength and ROM anglican. Target Visit 2 PT Problem 2 PT Problem #2 Pain PT Goal 1 Goal Pt. will reduce pain reports to 5/10 at worst with overhead reaching activities. Target Visit 10 PT Problem 3 PT Problem #3 Impaired Range of Motion PT Goal 1 Goal -Pt. will demonstrate 125 degrees active right shoulder flexion to optimize ability to complete overhead activities -Pt. will demonstrate functional reach into ER of the right shoulder to the area of the ct junction to assist with hair washing -Pt. will demonstrate functional reach into right shoulder IR to the lumbar region to assist with ease of dressing. Target Visit 10 PT Problem 4 PT Problem #4 Impaired Strength PT Goal 1 Goal Pt. will demonstrate ability to lift 1-2# object overhead with the right u.e. to place objects in overhead cabinets. Target Visit 10
--- NOTE | 2023-05-21 08:18 | PTOPDC ---
Assessment and note entered by Hiro Tapia Evaluation Information Assessment Status Progress Diagnosis right rotator cuf strain, right shoulder pain Onset 01/09/23 Subjective Information Pt. reports that his shoulder is feeling better than it has in years. He reports pain is only on occasion when he moves a certain way. No more constant pain is noted. He states that he can be stiff in the mornings, such as this morning, but again much better than prior to therapy. He reports he will continue with his HEP at this time . Reported Pain Level Pain Score 2: Self Report Assessment PT Clinical Summary Pt. presents with significant improvements in right shoulder strength and mobility. Despite improvements still note limitation due to likely arthritic changes at the right glenohumeral joint. Pt. presents with approximately 25% improvement in his Quick DASH score indicating improved function. At this time pt. will continue with his HEP and will be discharged from our care. Plan of Care PT Services Indicated D/C from PT to an independent HEP
== END 2023-05-21 08:42 | disposition home or self-care (01) ==
LOC: ANHPT 07:30
PROVIDERS: PCP Nurse Practitioner Family; Visit Provider Orthopaedic Surgery
DX: S46.011D Strain of muscle(s) and tendon(s) of the rotator cuff of right shoulder, subsequent encounter (principal); M77.8 Other enthesopathies, not elsewhere classified
CPT/HCPCS: 97014; 97110; 97140; 97161; 97530; G0283

== ENCOUNTER 2023-08-18 13:00 | Emergency (ER) | payer MEDICARE, SELFPAY ==
--- NOTE | 2023-08-18 13:02 | ED.UPPEXIN ---
HPI - Extremity Injury (Upper) General Chief Complaint: Extremity Injury, Upper Stated Complaint: Left Elbow Bleeding Time Seen by Provider: 08/18/23 13:01 Source: patient Mode of arrival: ambulatory Limitations: no limitations History of Present Illness HPI narrative: Hiren Grider is a 83-year-old male patient presenting to the clinic today with complaints of left elbow injury. He reports he cut his left elbow on a door hinge when going out into the garage. States his tetanus shot is up-to-date. Does have a 1 cm laceration to the posterior elbow. Related Data Home Medications Medication Instructions Recorded Confirmed aspirin 81 mg tablet,delayed 81 mg PO QHS 03/23/19 08/18/23 release (Aspir-Low) tamsulosin 0.4 mg capsule 0.4 mg PO HS 04/24/20 08/18/23 gabapentin 300 mg capsule 300 mg PO QID 05/15/20 08/18/23 bumetanide 1 mg tablet 1 mg PO DAILY 12/17/20 08/18/23 carbidopa ER 25 mg-levodopa 100 mg 2 tablet PO TID 05/16/22 08/18/23 tablet,extended release docusate sodium 100 mg capsule 100 mg PO TID 05/16/22 08/18/23 (Stool Softener) nitroglycerin 0.4 mg sublingual 0.4 mg sublingual PRN PRN Chest 10/23/22 08/18/23 tablet Pain Allergies Allergy/AdvReac Type Severity Reaction Status Date / Time abatacept AdvReac Flushing Verified 06/11/23 13:16 Review of Systems Review of Systems: Pertinent positives per HPI. Patient denies any fever, chills, rash, headache, visual changes, dizziness, cough, runny nose, sore throat, shortness of breath, chest pain, palpitations, nausea, vomiting, diarrhea, constipation, abdominal pain, or any urinary issues. [facility] Past Medical History Medical History Arthritis Barretts esophagus Carpal tunnel syndrome on both sides CHF (congestive heart failure) Echo May 2020: Normal left ventricular systolic function EF 69%, moderate concentric left ventricular hypertrophy, mild left ventricular enlargement, paradoxical septal motion consistent with bundle branch block, diastolic dysfunction grade 1, technically difficult study Chronic obstructive pulmonary disease Mild emphysematous changes noted on CT scan Coronary artery disease Degenerative joint disease of cervical and lumbar spine Dysphagia Gastroesophageal reflux disease Generalized osteoarthritis of multiple sites Hiatal hernia with gastroesophageal reflux disease and esophagitis Hypertension Hypothyroidism Mixed restrictive and obstructive lung disease Obstructive sleep apnea Parkinson disease Recurrent falls Recurrent falls Rheumatoid arthritis Rheumatoid arthritis of unspecified site with involvement of other organs and systems RLS (restless legs syndrome) Surgical History Surgical History H/O eye surgery Left eye to correct double vision History of dental orthodox Dental implants History of four vessel coronary artery bypass graft History of Osvaldo fundoplication History of tonsillectomy and adenoidectomy History of uvulopalatopharyngoplasty Hx of cholecystectomy Status post cataract extraction of both eyes with insertion of intraocular lens Status post open reduction with internal fixation of fracture Knee cap Family History Family History Father Acute myocardial infarction, Onset Age: 84 Family history of coronary artery disease, Onset Age: 84 Mother Carcinoma of colon, Onset Age: 64 Sibling Family history of coronary artery disease Carcinoma of colon Social History Social History Social History: The patient sold his house in moved in with his daughter after the patient's in 2019. He was 59 years prior to his 's . He ambulates with a walker and/or cane. He used to smoke fiber 6 cigars a day but quit in 2014. He
[2023-08-18 13:13] VITALS: BP 146/67; PULSE 60; RESP 16; TEMP 37.1; O2SAT 99
[2023-08-18] MEDS: LIDOCAINE HCL 1% LOCAL INJ 2 ML AMPUL INFILTRATE (13:47)
== END 2023-08-18 13:45 | disposition home or self-care (01) ==
PROVIDERS: Emergency Provider Nurse Practitioner Family; PCP Family Medicine
DX: S51.012A Laceration without foreign body of left elbow, initial encounter (principal); W22.8XXA Striking against or struck by other objects, initial encounter; Z87.891 Personal history of nicotine dependence; M19.90 Unspecified osteoarthritis, unspecified site; K22.70 Barrett's esophagus without dysplasia; J44.9 Chronic obstructive pulmonary disease, unspecified; M47.812 Spondylosis without myelopathy or radiculopathy, cervical region; M47.816 Spondylosis without myelopathy or radiculopathy, lumbar region; K21.9 Gastro-esophageal reflux disease without esophagitis; I11.0 Hypertensive heart disease with heart failure; I50.9 Heart failure, unspecified; G20.A1 Parkinson's disease without dyskinesia, without mention of fluctuations; M06.9 Rheumatoid arthritis, unspecified; G25.81 Restless legs syndrome; Z95.5 Presence of coronary angioplasty implant and graft; Z96.1 Presence of intraocular lens; Z98.42 Cataract extraction status, left eye; Z98.41 Cataract extraction status, right eye; Z79.82 Long term (current) use of aspirin
CPT/HCPCS: 12001; 99213; G0463

== ENCOUNTER 2023-08-28 10:26 | Emergency (ER) | payer MEDICARE, SELFPAY ==
--- NOTE | 2023-08-28 10:28 | ED.WOUNDLAC ---
HPI - Wound/Laceration General Chief Complaint: Wound/Laceration Stated Complaint: suture removal Time Seen by Provider: 08/28/23 10:27 Source: patient Mode of arrival: ambulatory Limitations: no limitations History of Present Illness HPI narrative: Patient is 83-year-old male who presents for suture removal. Patient had 3 stitches placed 10 days ago on left elbow. Denies any redness, drainage or pain surrounding area. Related Data Home Medications Medication Instructions Recorded Confirmed aspirin 81 mg tablet,delayed 81 mg PO QHS 03/23/19 08/28/23 release (Aspir-Low) tamsulosin 0.4 mg capsule 0.4 mg PO HS 04/24/20 08/28/23 gabapentin 300 mg capsule 300 mg PO QID 05/15/20 08/28/23 bumetanide 1 mg tablet 1 mg PO DAILY 12/17/20 08/28/23 carbidopa ER 25 mg-levodopa 100 mg 2 tablet PO TID 05/16/22 08/28/23 tablet,extended release docusate sodium 100 mg capsule 100 mg PO TID 05/16/22 08/28/23 (Stool Softener) nitroglycerin 0.4 mg sublingual 0.4 mg sublingual PRN PRN Chest 10/23/22 08/28/23 tablet Pain Allergies Allergy/AdvReac Type Severity Reaction Status Date / Time abatacept AdvReac Flushing Verified 08/28/23 10:27 Review of Systems Review of Systems: All systems reviewed & are unremarkable except as noted in HPI and below Constitutional: Constitutional: Denies body ache(s), Denies chills, Denies fatigue, Denies fever(s), Denies headache(s), Denies malaise and Denies weakness Eyes: Eyes: Denies blurry vision, Denies irritation and Denies loss of vision ENT: Denies otalgia, Denies headache(s), Denies nasal discharge, Denies sinus pain and Denies sore throat Cardiovascular: Cardiovascular: Denies chest pain, Denies irregular heart rhythm and Denies dyspnea Respiratory: Respiratory: Denies dyspnea Gastrointestinal: Gastrointestinal: Denies abdominal pain, Denies melena, Denies hematochezia, Denies diarrhea, Denies nausea and Denies vomiting Musculoskeletal: Musculoskeletal: Denies back pain, Denies myalgias and Denies arthralgias Integumentary/Breasts: Skin/Breast: Denies pruritus, Denies rash and Reports wounds Neurologic: Denies headache(s), Denies loss of vision and Denies weakness Psychiatric: Psychiatric: Reports no additional psychiatric complaints Endocrine: Endocrine: Denies fatigue [facility] Past Medical History Medical History Arthritis Barretts esophagus Carpal tunnel syndrome on both sides CHF (congestive heart failure) Echo May 2020: Normal left ventricular systolic function EF 69%, moderate concentric left ventricular hypertrophy, mild left ventricular enlargement, paradoxical septal motion consistent with bundle branch block, diastolic dysfunction grade 1, technically difficult study Chronic obstructive pulmonary disease Mild emphysematous changes noted on CT scan Coronary artery disease Degenerative joint disease of cervical and lumbar spine Dysphagia Gastroesophageal reflux disease Generalized osteoarthritis of multiple sites Hiatal hernia with gastroesophageal reflux disease and esophagitis Hypertension Hypothyroidism Mixed restrictive and obstructive lung disease Obstructive sleep apnea Parkinson disease Recurrent falls Recurrent falls Rheumatoid arthritis Rheumatoid arthritis of unspecified site with involvement of other organs and systems RLS (restless legs syndrome) Surgical History Surgical History H/O eye surgery Left eye to correct double vision History of dental episcopalian Dental implants History of four vessel coronary artery bypass graft History of Osvaldo fundoplication History of tonsillectomy and adenoidectomy History of uvulopalatopharyngoplasty Hx of cholecystectomy Status post cataract extraction of both eyes with insertion of intraocular lens Status post open reduction with internal fixation of fracture Knee cap Family History Family
[2023-08-28 10:36] VITALS: BP 132/57; PULSE 60; RESP 16; TEMP 36.4; O2SAT 98
== END 2023-08-28 10:55 | disposition home or self-care (01) ==
PROVIDERS: Emergency Provider Nurse Practitioner Family; PCP Family Medicine
DX: S51.012D Laceration without foreign body of left elbow, subsequent encounter (principal); X58.XXXD Exposure to other specified factors, subsequent encounter; M19.90 Unspecified osteoarthritis, unspecified site; K22.70 Barrett's esophagus without dysplasia; J44.9 Chronic obstructive pulmonary disease, unspecified; I25.10 Atherosclerotic heart disease of native coronary artery without angina pectoris; M47.812 Spondylosis without myelopathy or radiculopathy, cervical region; M47.816 Spondylosis without myelopathy or radiculopathy, lumbar region; K21.9 Gastro-esophageal reflux disease without esophagitis; I11.0 Hypertensive heart disease with heart failure; I50.9 Heart failure, unspecified; E03.9 Hypothyroidism, unspecified; G20.A1 Parkinson's disease without dyskinesia, without mention of fluctuations; M06.9 Rheumatoid arthritis, unspecified; G25.81 Restless legs syndrome; Z96.1 Presence of intraocular lens; Z98.42 Cataract extraction status, left eye; Z98.41 Cataract extraction status, right eye; Z79.82 Long term (current) use of aspirin
CPT/HCPCS: 99211; G0463

== ENCOUNTER 2023-11-27 08:00 | Outpatient (RCR) | payer MEDICARE, SELFPAY ==
--- NOTE | 2023-10-02 15:31 | OPREHPOC ---
Outpatient Therapy Plan of Care This is a Multidisciplinary Plan of Care that may contain components documented by all disciplines (PT, OT, and ST.) PT Problem 1 PT Problem #1 Knowledge Deficit PT Goal 1 Goal *indep with HEP * correct transfer technique with sit/stand transfers Target Visit 8 PT Problem 2 PT Problem #2 Impaired Strength PT Goal 1 Goal increase strength of LE's to improve gait and mobility skills: 1* pt perform 20 reps of R and L ankle circles in sitting, with good control 2* pt perform 20 reps of R and L supine heel slides with good control 3* sit/stand from 18 seat without use of UE x 5 reps Target Visit 8 PT Problem 3 PT Problem #3 Impaired Functional Mobility PT Goal 1 Goal 1* TUG with rollator 17 seconds 2* Tinetti balance/gait score of 23/28 3* 2 minute walking test distance of 450' 4* 5 reps sit/stand time of 18 seconds 5* pt report NO falls Target Visit 8
--- NOTE | 2023-10-02 15:31 | PTOPEVAL1 ---
Assessment and note entered by Edie Thapa, PT Evaluation Information Assessment Status Evaluation Diagnosis Parkinson's, decreased gait and falls Onset May 2023 Subjective Information more falls and problems walking; in past 6 months have had 5 falls; to ER August 27 with stitches to elbow; problems moving legs--feel heavy and hard to start them going; Activity: use wheeled walker/rollator, cane or no device--was told that he needs to use the rollator all the time now; live with daughter, have 2 steps with rail and do OK on them; drives and goes out into the community; is not doing any leg exercises; is doing the arm exercises from recent therapy for R rotator cuff tear. Reported Pain Level Pain Score 0: Self Report Assessment PT Clinical Summary Hiren has the diagnosis of Parkinson's Disease with decreased gait and balance skills and falls. He has had PT here in the past. He has not had any med changes and has been told he has to use the rollator all the time--previously was PRN use. With the evaluation: he has rigidity of trunk and Legs, with decreased motor control; weakness of ankle; Tinetti balance score of 15/28= high risk for falls; TUG with rollator 20 seconds and 5 reps sit/stand time of 22 seconds with use of 1 UE 2 minute walking test distance of 410'; decreased safety awareness with mobility and transfers. Skilled PT services are indicated for therapeutic exercises and activities to increase gait balance, mobility and LE strength and motor control, with education for HEP and safety. Plan of Care Interventions Gait Training,Neuro Re-education,Patient/Caregiver Educati,Therapeutic Activities,Therapeutic Exercise PT Services Indicated Yes Treatment Frequency and 2x/wk for 8 total visits Duration These treatments will address the objective and functional deficits as defined above. The patient will be advanced safely and appropriately in order for the patient to progress towards his/her prior level of function. Additional exercises will be introduced and as well as a comprehensive home exercise program upon discharge
--- NOTE | 2023-10-27 08:56 | OTOPDC ---
Assessment and note entered by RAQUEL Glass/Chai, CHT Evaluation Information Assessment Status Evaluation Diagnosis Parkinson's Subjective Information Patient reports he has been working with PT for his balance and mobility. At home he lives with his daughter. He typically uses a cane at home and a rollator in the community. He reports he is independent with ADLs. He states he has been having trouble with upper body mobility, which has impacted his ability to reach into shelves/ cabinets overhead. 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 He has 25# dumbbells that he works with regularly. He also has cane exercises for his shoulders following a rotator cuff tear last year. He states he also gets down on the floor and does push ups. Reported Pain Level Pain Score 0: Self Report Assessment OT Clinical Summary Patient referred to OT with dx of Parkinson's. He presents with intact functional ROM, strength, and coordination. Reviewed cane HEP for improved flexibility. Reviewed ADL safety and he appears to have all appropriate DME at home. At this time it is recommended that he continues PT for his balance/mobility. No further skilled OT indicated at this time. Plan of Care OT Services Indicated No
--- NOTE | 2023-11-27 15:26 | PTOPDC ---
Assessment and note entered by Edie Thapa, PT Discharge Report Assessment Status Discharge Diagnosis Parkinson's, decreased gait and falls Onset May 2023 Subjective Information is doing good, walking now without dragging his feet; legs are stronger; uses the wheeled walker all of the time and has not had any falls; has been doing the exercises; has a stationary bike, but problems lifting his leg over the middle bar to get on/off it. agrees to discharge from PT and to continue with his exercises. Reported Pain Level Pain Score 0: Self Report Assessment PT Clinical Summary Hiren has received a total of 10 PT sessions. Compared to the initial evaluation, he has improved with all areas: increase LE strength with standing and mat exercises; TUG from 22 to 17 seconds; Tinetti balance/gait score from 15 to 20/28; 2 minute walking test distance from 410' to 460' with the rollator; 5 reps sit/stand time from 20 sec with 1 UE use, to 16 seconds and did not use UE's; education completed for HEP and safety with transfers. The goals were met except Tinetti balance score. Discharge PT. Hiren to continue with his home exercises. Plan of Care PT Services Indicated No
== END 2023-11-30 08:27 | disposition home or self-care (01) ==
LOC: ANHPT 08:00
PROVIDERS: PCP Family Medicine
DX: G20.A1 Parkinson's disease without dyskinesia, without mention of fluctuations (principal)
CPT/HCPCS: 97110; 97112; 97116; 97161; 97165; 97530

== ENCOUNTER 2024-01-12 01:22 | Emergency (ER) | payer MEDICARE, SELFPAY ==
[2024-01-12] VITALS (19 sets, daily range): BP systolic 110–153; BP diastolic 57–73; PULSE 47–66; RESP 13–25; TEMP 36.6–36.7; O2SAT 97–100
--- NOTE | ~2024-01-12 | CT_ITS ---
CT of the Abdomen and Pelvis: Indication: Abdominal pain Technique: 2.5 mm axial scans were obtained through the abdomen and pelvis following intravenous adm inistration of 100 cc of Omnipaque 350. Dose reduction technique was used on this scan by utilizing a utomated exposure control and iterative reconstruction technique. The dose-length product (DLP) was 6 57.77 mGy-cm. COMPARISON: 05/16/2022 Findings: Scans through the lung bases are unremarkable. The liver, spleen, pancreas, adrenals and kidneys are within normal limits. Cholecystectomy clips are present. There are atherosclerotic calcifications of the aorta. No lymphadenopathy. No bowel obstruction or bowel wall thickening. There is no evidence to suggest acute appendicitis. Images through the pelvis were performed. Urinary bladder unremarkable. Prostate gland enlarged. No p elvic mass evident. No ascites. Impression: No acute abnormalities seen. Reviewed, dictated and finalized at [facility]. Impression: No acute abnormalities seen.
--- NOTE | ~2024-01-12 | XR_ITS ---
Portable chest x-ray Comparison: 10/05/2022 Clinical History: Chest pain Findings: Lungs are clear, without focal consolidation or pleural effusion. Cardiomediastinal silho uette is stable. Bones and soft tissues are unremarkable. Impression: Clear lungs. Reviewed, dictated and finalized at location . Impression: Clear lungs.
--- NOTE | 2024-01-12 01:28 | ECG_ITS ---
Test Date: 2024-01-12 01:29:53 Measurements Intervals [place] Rate: 55 P: 56 OR: 199 QRS: -50 QRSD: 142 T: 54 QT: 432 QTc: 413 Interpretive Statements SINUS BRADYCARDIA LEFT AXIS DEVIATION INTRAVENTRICULAR CONDUCTION DELAY CANNOT R/O SEPTAL INFARCT, AGE INDETERMINATE BASELINE ARTIFACT- I, II, III, AVR, AVL, AVF, V1-V2, V4-V6 ABNORMAL ECG No previous ECG available for comparison Electronically Signed On 01-12-2024 06:30:48 CDT by Jaylen Mata D.O.
[2024-01-12 01:50] LABS: Basophils Percent Auto 0.5 % (0.2-1.2); Eosinophils Absolute Auto 0.1 K/mm3 (0-0.3); Eosinophils Percent Auto 2.2 % (0-4.4); Hemoglobin 13.1 g/dL (14.0-18.0); Immature Platelet Fraction Pct 5.1 % (0.9-11.2); Lymphocytes Absolute Auto 1.08 K/mm3 (0.9-3.2); Lymphocytes Percent Auto 26.6 % (18.3-44.2); Mean Corpuscular HGB Conc 33.6 g/dl (32-36); Mean Corpuscular Hemoglobin 33.6 pg (26-34); Mean Platelet Volume 10.6 fl (7.4-10.4); Monocytes Absolute Auto 0.5 K/mm3 (0.1-0.6); Monocytes Percent Auto 11.6 % (2.6-8.5); Neutrophils Absolute Auto 2.4 K/mm3 (1.3-6.7); Neutrophils Percent Auto 59.1 % (45.5-73.1); Platelet Count Result 133 k/mm3 (150-375); Red Cell Distribution Width 12.7 % (11.5-14.5); White Blood Count 4.1 K/mm3 (4.5-10.0)
[2024-01-12 02:00] LABS: Alanine Aminotransferase 9 U/L (6-50); Albumin Level 3.9 g/dL (3.5-5.1); Alkaline Phosphatase 135 U/L (38-126); Anion Gap 6 mmol/L (4-12); Aspartate Amino Transferase 37 U/L (17-59); Bilirubin,Total 0.4 mg/dL (0.2-1.3); Blood Urea Nitrogen 23 mg/dL (9-20); Calcium 8.8 mg/dL (8.4-10.2); Carbon Dioxide 28 mmol/L (22-30); Chloride 102 mmol/L (98-107); Estimated CRCL calculation 54 ml/min; Estimated Glomerular Filt Rate > 60; Glucose 97 mg/dL (65-110); Lipase 25 U/L (23-300); Potassium 4.8 mmol/L (3.4-5.0); Sodium 136 mmol/L (137-145)
[2024-01-12 02:12] LABS: Troponin I < 0.012 ng/mL (0.000-0.034)
[2024-01-12 02:21] LABS: Bacteria Urine None Seen /hpf; Non Pathogenic Casts 0-2; RBC Urine 0-2 /hpf (0-2); Squamous Epithelial Cell Urine None Seen /hpf (Few); WBC Urine 0-5 /hpf (0-3)
[2024-01-12 02:26] LABS: Add Urine Microscopic? NO; Appearance Urine Clear (Clear); Color Urine Yellow (Yellow)
[2024-01-12 02:27] LABS: Bilirubin Urine Negative (Negative); Blood Urine Negative (Negative); Glucose Urine UA Negative (Negative); Ketones Urine Trace mg/dL (Negative); Leukocyte Esterase Ur Negative LEU/UL (Negative); Nitrate Urine Negative (Negative); Protein Urine Negative (Negative); Urobilinogen Urine 0.2 mg/dL (<2.0)
--- NOTE | 2024-01-12 04:18 | ED.GENADULT ---
HPI - General Adult General Chief complaint: Abdominal Pain Stated complaint: abd pain Time Seen by Provider: 01/12/24 02:21 History of Present Illness HPI narrative: This is an 83-year-old male with multiple medical comorbidities presenting for an episode of facial flushing patient said that he was woken from sleep at 12:00 a.m.. He felt like he could not catch his breath. Patient states that he had facial flushing abdominal pain although his says he told her ANCAs having jaw pain. The pain was an achy pain, was diffuse throughout his abdomen 5 out 10 intensity and self-limited and resolved on its home within 20 minutes. The patient is currently asymptomatic. patient had no fevers chills nausea vomiting diarrhea chest pain urinary symptoms or viral symptoms. Related Data Home Medications Medication Instructions Recorded Confirmed aspirin 81 mg tablet,delayed 81 mg PO QHS 03/23/19 12/07/23 release (Aspir-Low) tamsulosin 0.4 mg capsule 0.4 mg PO HS 04/24/20 12/07/23 gabapentin 300 mg capsule 300 mg PO QID 05/15/20 12/07/23 bumetanide 1 mg tablet 1 mg PO DAILY 12/17/20 12/07/23 carbidopa ER 25 mg-levodopa 100 mg 2 tablet PO TID 05/16/22 12/07/23 tablet,extended release nitroglycerin 0.4 mg sublingual 0.4 mg sublingual PRN PRN Chest 10/23/22 12/07/23 tablet Pain mirabegron 25 mg tablet,extended 25 mg PO DAILY 10/16/23 12/07/23 release 24 hr (Myrbetriq) Allergies Allergy/AdvReac Type Severity Reaction Status Date / Time abatacept AdvReac Flushing Verified 12/07/23 10:22 [facility] Past Medical History Medical History Arthritis Barretts esophagus Carpal tunnel syndrome on both sides CHF (congestive heart failure) Echo May 2020: Normal left ventricular systolic function EF 69%, moderate concentric left ventricular hypertrophy, mild left ventricular enlargement, paradoxical septal motion consistent with bundle branch block, diastolic dysfunction grade 1, technically difficult study Chronic obstructive pulmonary disease Mild emphysematous changes noted on CT scan Coronary artery disease Degenerative joint disease of cervical and lumbar spine Dysphagia Gastroesophageal reflux disease Generalized osteoarthritis of multiple sites Hiatal hernia with gastroesophageal reflux disease and esophagitis Hypertension Hypothyroidism Mixed restrictive and obstructive lung disease Obstructive sleep apnea Parkinson disease Recurrent falls Recurrent falls Rheumatoid arthritis Rheumatoid arthritis of unspecified site with involvement of other organs and systems RLS (restless legs syndrome) Surgical History Surgical History H/O eye surgery Left eye to correct double vision History of dental mu-ism Dental implants History of four vessel coronary artery bypass graft History of Osvaldo fundoplication History of tonsillectomy and adenoidectomy History of uvulopalatopharyngoplasty Hx of cholecystectomy Status post cataract extraction of both eyes with insertion of intraocular lens Status post open reduction with internal fixation of fracture Knee cap Family History Family History Father Acute myocardial infarction, Onset Age: 84 Family history of coronary artery disease, Onset Age: 84 Mother Carcinoma of colon, Onset Age: 64 Sibling Family history of coronary artery disease Carcinoma of colon Social History Social History Social History: The patient sold his house in moved in with his daughter after the patient's in 2019. He was 59 years prior to his 's . He ambulates with a walker and/or cane. He used to smoke fiber 6 cigars a day but quit in 2014. He denies any alcohol use. 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 The patient
--- NOTE | 2024-01-12 05:01 | ECG_ITS ---
Test Date: 2024-01-12 05:00:32 Measurements Intervals [place] Rate: 50 P: -34 DC: 152 QRS: -47 QRSD: 125 T: 50 QT: 459 QTc: 419 Interpretive Statements SINUS BRADYCARDIA LEFT AXIS DEVIATION INTRAVENTRICULAR CONDUCTION DELAY CANNOT R/O SEPTAL INFARCT, AGE INDETERMINATE ABNORMAL ECG Compared to ECG 01/12/2024 01:29:53 NO SIGNIFICANT CHANGE Electronically Signed On 01-12-2024 06:34:02 CDT by Jaylen Mata D.O.
[2024-01-12 05:41] LABS: Troponin I < 0.012 ng/mL (0.000-0.034)
[2024-01-12 05:51] LABS: Influenza A QL RT-PCR Negative (Negative); Influenza B QL RT-PCR Negative (Negative); RSV RNA, RT-PCR Negative (Negative); SARS-CoV-2 RNA PCR Negative (Negative)
== END 2024-01-12 07:03 | disposition home or self-care (01) ==
PROVIDERS: Emergency Provider Emergency Medicine; PCP Nurse Practitioner Family
DX: R23.2 Flushing (principal); R10.9 Unspecified abdominal pain; Z20.822 Contact with and (suspected) exposure to COVID-19; I25.10 Atherosclerotic heart disease of native coronary artery without angina pectoris; I50.9 Heart failure, unspecified; I11.0 Hypertensive heart disease with heart failure; E03.9 Hypothyroidism, unspecified; J44.9 Chronic obstructive pulmonary disease, unspecified; K22.70 Barrett's esophagus without dysplasia; K21.00 Gastro-esophageal reflux disease with esophagitis, without bleeding; K44.9 Diaphragmatic hernia without obstruction or gangrene; M05.60 Rheumatoid arthritis of unspecified site with involvement of other organs and systems; M19.90 Unspecified osteoarthritis, unspecified site; M47.812 Spondylosis without myelopathy or radiculopathy, cervical region; M47.816 Spondylosis without myelopathy or radiculopathy, lumbar region; G20.A1 Parkinson's disease without dyskinesia, without mention of fluctuations; G47.33 Obstructive sleep apnea (adult) (pediatric); G25.81 Restless legs syndrome; Z95.1 Presence of aortocoronary bypass graft; Z87.891 Personal history of nicotine dependence; Z90.49 Acquired absence of other specified parts of digestive tract; Z96.1 Presence of intraocular lens; Z98.42 Cataract extraction status, left eye; Z98.41 Cataract extraction status, right eye; Z79.82 Long term (current) use of aspirin; Z79.899 Other long term (current) drug therapy; R00.1 Bradycardia, unspecified; I45.9 Conduction disorder, unspecified; R94.31 Abnormal electrocardiogram [ECG] [EKG]
CPT/HCPCS: 36415; 71045; 74177; 80053; 81003; 83690; 84484; 85025; 85055; 87637; 93005; 99284; Q9967

== ENCOUNTER 2024-02-16 13:43 | Emergency (ER) | payer MEDICARE, SELFPAY ==
[2024-02-16] VITALS (7 sets, daily range): BP systolic 121–159; BP diastolic 64–75; PULSE 52–65; RESP 16–18; TEMP 36.8; O2SAT 97–100
--- NOTE | ~2024-02-16 | XR_ITS ---
HISTORY: infection 3RD FINGER COMPARISON: None TECHNIQUE: Multiple views of the third digit of the left hand were performed FINDINGS: No acute or subacute fracture, erosion, lytic or sclerotic lesion. Joint spaces are narrowed and alignment is preserved. Soft tissue swelling over the skin of the distal third digit, projecting over the dorsal margin of th e DIP joint. Normal mineralization. IMPRESSION: Soft tissue swelling, without acute or subacute fracture. No bony involvement on the submitted images. Reviewed, dictated and finalized at location A.
--- NOTE | 2024-02-16 16:20 | ED.SKABFB ---
HPI - Skin/Abscess/Foreign Bdy General Chief complaint: Skin/Abscess/Foreign Body <BRADY Santos Last Filed: 02/16/24 16:33> Stated complaint: L middle finger infection <BRADY Santos Last Filed: 02/16/24 16:33> Time Seen by Provider: 02/16/24 16:20 <BRADY Santos Last Filed: 02/16/24 16:33> Focused HPI: Patient is an 84 y/o male, with PMH of Parkinson's Disease and RA on Hydroxychloroquine, who presents to the ED with c/o finger infection. Daughter at bedside assisted in providing information. Reports he had a myxoid cyst drained from his L 3rd digit (extensor surface, just proximal from nail cuticle) by the lead case manager last Thursday. Fluid was sent for cx, but has not resulted yet. States he has since developed an abscessed area to his digit, just lateral from where the cyst was drained. He has had this abscessed area I&D'd X2 w/o improvement. He was referred to a hand specialist, but has not seen him yet. Has been on bactrim and soaking finger in betadine for the past 4 days w/o improvement. Was told if sx's did not improve by Thursday, to come to the ED. Denies fevers, chills. GENERAL: Well-appearing, well-nourished, and in no acute distress. HEAD: Normocephalic, atraumatic. CHEST: Clear to auscultation. ?No respiratory distress. HEART: Regular rate and rhythm.? MSK: L 3rd digit with fusiform swelling, erythema distally to about mid finger with warmth present. Two small areas of fluctuance over DIP joint on extensor surface with some excoriation of skin. Focal TTP. Limited flexion ROM of finger d/t pain/swelling. Full extension. No tenderness along flexor surface of finger. Radial pulses 2+ NEURO: ?Alert and oriented x3. Patient screened in triage and initial orders placed.? ?Additional care and disposition to be based upon?diagnostic testing and treatment. <BRADY Santos Last Filed: 02/16/24 16:33> Source: patient and family <BRADY Santos Last Filed: 02/16/24 16:33> Mode of arrival: ambulatory <BRADY Santos Last Filed: 02/16/24 16:33> Limitations: no limitations <BRADY Santos Last Filed: 02/16/24 16:33> Related Data Home medications: Home Medications Medication Instructions Recorded Confirmed aspirin 81 mg tablet,delayed 81 mg PO QHS 03/23/19 02/02/24 release (Aspir-Low) tamsulosin 0.4 mg capsule 0.4 mg PO HS 04/24/20 02/02/24 gabapentin 300 mg capsule 300 mg PO QID 05/15/20 02/02/24 bumetanide 1 mg tablet 1 mg PO DAILY 12/17/20 02/02/24 carbidopa ER 25 mg-levodopa 100 mg 2 tablet PO TID 05/16/22 02/02/24 tablet,extended release nitroglycerin 0.4 mg sublingual 0.4 mg sublingual PRN PRN Chest 10/23/22 02/02/24 tablet Pain oxybutynin chloride 5 mg 5 mg PO DAILY 01/18/24 02/02/24 tablet,extended release 24 hr acetaminophen 325 mg capsule 650 mg PO QPM 02/01/24 02/02/24 (Tylenol) clobetasol 0.05 % topical ointment 1 applic topical DAILY 02/01/24 02/02/24 finasteride 5 mg tablet 5 mg PO DAILY 02/01/24 02/02/24 <BRADY Santos Last Filed: 02/16/24 16:33> Allergies/Adverse reactions: Allergies Allergy/AdvReac Type Severity Reaction Status Date / Time abatacept AdvReac Flushing Verified 02/16/24 13:44 <BRADY Santos Last Filed: 02/16/24 16:33> Review of Systems Review of Systems: CONSTITUTIONAL: Denies fever SKIN: Reports redness and swelling MUSCULOSKELETAL: Reports joint pain, and myalgia. NEUROLOGIC: Denies numbness <BRADY Ward Last Filed: 02/16/24 19:49> All systems reviewed & are unremarkable except as noted in HPI and below <Janet Hu PA-C - Last Filed: 02/16/24 19:49> [facility] Past Medical History Medical History: Medical History Arthritis Barretts esophagus Carpal tunnel syndrome on both sides CHF (congestive heart failure)
[2024-02-16 16:41] LABS: Basophils Percent Auto 0.4 % (0.2-1.2); Eosinophils Absolute Auto 0.2 K/mm3 (0-0.3); Eosinophils Percent Auto 3.3 % (0-4.4); Hematocrit 39.4 % (42.0-52.0); Hemoglobin 13.2 g/dL (14.0-18.0); Immature Granulocyte Absolute 0.02 K/mm3 (0.00-0.031); Immature Granulocyte Percent A 0.4 % (0-0.5); Lymphocytes Absolute Auto 0.94 K/mm3 (0.9-3.2); Lymphocytes Percent Auto 19.6 % (18.3-44.2); Mean Corpuscular HGB Conc 33.5 g/dl (32-36); Mean Corpuscular Hemoglobin 33.6 pg (26-34); Mean Corpuscular Volume 100.3 fl (80-100); Monocytes Absolute Auto 0.6 K/mm3 (0.1-0.6); Monocytes Percent Auto 11.9 % (2.6-8.5); Neutrophils Absolute Auto 3.1 K/mm3 (1.3-6.7); Neutrophils Percent Auto 64.4 % (45.5-73.1); Platelet Count Result 161 k/mm3 (150-375); Red Blood Count 3.93 M/mm3 (4.6-6.20); Red Cell Distribution Width 12.9 % (11.5-14.5); White Blood Count 4.8 K/mm3 (4.5-10.0)
[2024-02-16 16:52] LABS: Lactic Acid Reflex 0.7 mmol/L (0.7-2.0)
[2024-02-16 17:06] LABS: Erythrocyte Sedimentation Rate 21 mm/hr (0-20)
[2024-02-16 17:18] LABS: Anion Gap 8 mmol/L (4-12); Blood Urea Nitrogen 28 mg/dL (9-20); CRP 0.9 mg/dL (<1.0); Carbon Dioxide 28 mmol/L (22-30); Chloride 100 mmol/L (98-107); Estimated CRCL calculation 41 ml/min; Estimated Glomerular Filt Rate > 60; Glucose 100 mg/dL (65-110); Sodium 136 mmol/L (137-145)
[2024-02-16] MEDS: LIDOCAINE HCL 1% LOCAL INJ 10 ML VIAL INFILTRATE (18:03)
[2024-02-16] MEDS: VANCOMYCIN 1,000 MG/NS 250 ML 1,000 MG/250 ML BAG 250 MG IVPB (19:30)
== END 2024-02-16 20:49 | disposition home or self-care (01) ==
PROVIDERS: Physician Assistant; Emergency Provider Physician Assistant; PCP Nurse Practitioner Family
DX: L02.512 Cutaneous abscess of left hand (principal); M19.90 Unspecified osteoarthritis, unspecified site; I11.0 Hypertensive heart disease with heart failure; I50.9 Heart failure, unspecified; I25.10 Atherosclerotic heart disease of native coronary artery without angina pectoris; J44.9 Chronic obstructive pulmonary disease, unspecified; K21.9 Gastro-esophageal reflux disease without esophagitis; E03.9 Hypothyroidism, unspecified; G47.30 Sleep apnea, unspecified; G20.A1 Parkinson's disease without dyskinesia, without mention of fluctuations; G25.81 Restless legs syndrome
CPT/HCPCS: 26010; 36415; 73140; 80048; 83605; 85025; 85652; 86140; 87070; 87181; 87205; 96365; 99284; J2003; J3370

== ENCOUNTER 2024-02-21 23:47 | Emergency (ER) | payer MEDICARE, SELFPAY ==
--- NOTE | ~2024-02-21 | CT_ITS ---
Noncontrast CT scan of the lumbar spine CLINICAL HISTORY: Status post fall TECHNIQUE: Axial noncontrast imaging of the lumbar spine was performed. Sagittal and coronal reformat evin images were constructed. Dose reduction technique was used on this scan by utilizing automated ex posure control and iterative reconstruction technique. The dose-length product (DLP) was 684.12 mGy-c m. FINDINGS: There is an acute, minimally displaced, transverse fracture at the S4-S5 level cortical darrion p-off best seen on sagittal images. No acute fracture or subluxation seen in the lumbar spine otherwi se. There is partial fusion across the L5-S1 disc space. There are mild degenerative disc changes at the remaining lumbar discs. At L1-L2, there is no disc bulge or herniation. There is mild facet hypertrophy. No spinal canal sten osis or neural foraminal narrowing. At L2-L3, there is mild disc bulge and mild facet arthropathy. No definite central canal stenosis. Th ere is mild right neural foraminal narrowing. Left neural foramen preserved. L3-L4, there is mild disc bulge with facet hypertrophy, probable moderate to possibly severe spinal c anal stenosis/thecal sac compression. There is mild to moderate right neural foraminal narrowing. Lef t neural foramen mildly narrowed. At L4-L5, there is disc bulge and advanced facet arthropathy, with probable mild central canal stenos is. There is moderate bilateral neural foraminal narrowing. At L5-S1, there is no definite disc bulge or herniation. No spinal canal stenosis. There is severe bi lateral neural foraminal narrowing. Paravertebral soft tissues are unremarkable. Impression: Acute minimally displaced transverse fracture at the S4-S5 level, as detailed above. Degenerative spondylosis, as above. Reviewed, dictated and finalized at location M. Impression: Acute minimally displaced transverse fracture at the S4-S5 level, as detailed leah posadas. Degenerative spondylosis, as above.
[2024-02-21 23:49] VITALS: BP 119/86; PULSE 85; RESP 16; TEMP 37; O2SAT 95
--- NOTE | 2024-02-21 23:55 | PC.NURSE ---
Patient denies striking his head or LOC.
[2024-02-22 01:25] VITALS: BP 141/82; PULSE 72; RESP 18; TEMP 36.6; O2SAT 97
--- NOTE | 2024-02-22 01:53 | ED.FALL ---
HPI - Fall General Chief Complaint: Fall Stated Complaint: glf Time Seen by Provider: 02/22/24 01:27 History of Present Illness HPI Narrative: 84-year-old male with a past medical history significant for Parkinson's disease presenting to the emergency department after a ground level mechanical fall. Patient states he was fumbling around with dresser was at home and tripped backwards and slid against a door frame. He landed on his coccyx and was having difficulty getting up secondary to the pain. He had no weakness or paresthesias and was able to get up with assistance of his daughter. He presents today for evaluation. Denies any weakness, paresthesias of significant pain at rest. He has pinpoint pain over his coccyx, no overlying skin changes but does have an avulsion small area scan did near the low lumbar region from scraping it is the door. Denies any chest pain, shortness a breath, nausea, vomiting. No head trauma or loss of consciousness. No weakness or fatigue presently. No worsening tremor. Related Data Home Medications Medication Instructions Recorded Confirmed aspirin 81 mg tablet,delayed 81 mg PO QHS 03/23/19 02/02/24 release (Aspir-Low) tamsulosin 0.4 mg capsule 0.4 mg PO HS 04/24/20 02/02/24 gabapentin 300 mg capsule 300 mg PO QID 05/15/20 02/02/24 bumetanide 1 mg tablet 1 mg PO DAILY 12/17/20 02/02/24 carbidopa ER 25 mg-levodopa 100 mg 2 tablet PO TID 05/16/22 02/02/24 tablet,extended release nitroglycerin 0.4 mg sublingual 0.4 mg sublingual PRN PRN Chest 10/23/22 02/02/24 tablet Pain oxybutynin chloride 5 mg 5 mg PO DAILY 01/18/24 02/02/24 tablet,extended release 24 hr acetaminophen 325 mg capsule 650 mg PO QPM 02/01/24 02/02/24 (Tylenol) clobetasol 0.05 % topical ointment 1 applic topical DAILY 02/01/24 02/02/24 finasteride 5 mg tablet 5 mg PO DAILY 02/01/24 02/02/24 Allergies Allergy/AdvReac Type Severity Reaction Status Date / Time abatacept AdvReac Flushing Verified 02/22/24 01:32 Review of Systems Review of Systems: As reviewed above in HPI [facility] Past Medical History Medical History Arthritis Barretts esophagus Carpal tunnel syndrome on both sides CHF (congestive heart failure) Echo May 2020: Normal left ventricular systolic function EF 69%, moderate concentric left ventricular hypertrophy, mild left ventricular enlargement, paradoxical septal motion consistent with bundle branch block, diastolic dysfunction grade 1, technically difficult study Chronic obstructive pulmonary disease Mild emphysematous changes noted on CT scan Coronary artery disease Degenerative joint disease of cervical and lumbar spine Dysphagia Gastroesophageal reflux disease Generalized osteoarthritis of multiple sites Hiatal hernia with gastroesophageal reflux disease and esophagitis Hypertension Hypothyroidism Mixed restrictive and obstructive lung disease Obstructive sleep apnea Parkinson disease Recurrent falls Recurrent falls Rheumatoid arthritis Rheumatoid arthritis of unspecified site with involvement of other organs and systems RLS (restless legs syndrome) Surgical History Surgical History H/O eye surgery Left eye to correct double vision History of dental jewish Dental implants History of four vessel coronary artery bypass graft History of Osvaldo fundoplication History of tonsillectomy and adenoidectomy History of uvulopalatopharyngoplasty Hx of cholecystectomy Status post cataract extraction of both eyes with insertion of intraocular lens Status post open reduction with internal fixation of fracture Knee cap Family History Family History Father Acute myocardial infarction, Onset Age: 84 Family history of coronary artery disease, Onset Age: 84 Mother Carcinoma of col
[2024-02-22] MEDS: ACETAMINOPHEN 500 MG TABLET 1000 MG PO (01:57)
== END 2024-02-22 03:00 | disposition home or self-care (01) ==
PROVIDERS: Emergency Provider Student in an Organized Health Care Education/Training Program; PCP Nurse Practitioner Family
DX: S32.2XXA Fracture of coccyx, initial encounter for closed fracture (principal); G20.A1 Parkinson's disease without dyskinesia, without mention of fluctuations; I50.9 Heart failure, unspecified; I11.0 Hypertensive heart disease with heart failure; I25.10 Atherosclerotic heart disease of native coronary artery without angina pectoris; E03.9 Hypothyroidism, unspecified; J44.9 Chronic obstructive pulmonary disease, unspecified; K21.9 Gastro-esophageal reflux disease without esophagitis; K22.70 Barrett's esophagus without dysplasia; G47.33 Obstructive sleep apnea (adult) (pediatric); G25.81 Restless legs syndrome; M19.90 Unspecified osteoarthritis, unspecified site; M47.812 Spondylosis without myelopathy or radiculopathy, cervical region; M47.816 Spondylosis without myelopathy or radiculopathy, lumbar region; M05.70 Rheumatoid arthritis with rheumatoid factor of unspecified site without organ or systems involvement; Z95.1 Presence of aortocoronary bypass graft; Z96.1 Presence of intraocular lens; Z87.891 Personal history of nicotine dependence; Z98.42 Cataract extraction status, left eye; Z98.41 Cataract extraction status, right eye; Z90.49 Acquired absence of other specified parts of digestive tract; Z79.899 Other long term (current) drug therapy; Z79.82 Long term (current) use of aspirin; W01.198A Fall on same level from slipping, tripping and stumbling with subsequent striking against other object, initial encounter
CPT/HCPCS: 72131; 99284; A9270

== ENCOUNTER 2024-03-07 08:47 | Outpatient (CLI) | payer MEDICARE, SELFPAY ==
--- NOTE | ~2024-03-07 | MR_ITS ---
EXAMINATION: MR hand LT wo con DATE: 03/07/2024 10:01 INDICATION: Left hand third digit pain and swelling. Rheumatoid arthritis. TECHNIQUE: Magnetic resonance imaging (MRI) of the left hand was performed without intravenous contra st to include the metacarpals and digits. Sequences included axial, sagittal and coronal T1-weighted FSE and T2-weighted FS FSE. COMPARISON: Left third digit radiographs dated 02/16/2024 FINDINGS: Bone alignment is normal. No fracture. There is disproportionately severe joint space narrowing at th e third distal interphalangeal joint relative to the remaining interphalangeal joints. There is marro w edema and associated geographic decreased T1 marrow fat signal at both sides of the joint space thr oughout the proximal two thirds of the distal phalanx and at the head of the middle phalanx. Their is soft tissue swelling throughout the third digit most prominent at the distal interphalangeal joint. Findings are suspicious for septic arthritis. Bone marrow signal is otherwise normal throughout the v isualized hand which excludes the proximal carpal row. There is thickening of the radial collateral l igament complexes with associated heterotopic ossification at the second and third metacarpophalangea l joints. No associated soft tissue or marrow edema to suggest acute inflammatory process in this mos t likely represents scarring related to chronic partial tears of the ligaments or chronic enthesopath y. The remaining collateral ligament complexes at the metacarpophalangeal and interphalangeal joints appear normal. The flexor and extensor tendons are normal. No joint effusions or other abnormal fluid collections to suggest abscess. IMPRESSION: 1. Disproportionate joint space narrowing at the third distal interphalangeal joint with adjacent mar row signal changes at the base of the distal phalanx and head of the middle phalanx most consistent w ith septic arthritis with osteomyelitis. A message has been left with the third libertarian diploma dental assistant miguelito olsen for Dr. Ochoa at 12:55 PM. Reviewed, dictated and finalized at location A. IMPRESSION: 1. Disproportionate joint space narrowing at the third distal interphalangeal j oint with adjacent marrow signal changes at the base of the distal phalanx and head of the middle phalanx most consistent with septic arthritis with osteomyel itis. A message has been left with the third libertarian diploma dental assistant service for Dr Isai Ochoa at 12:55 PM.
== END 2024-03-07 08:48 | disposition home or self-care (01) ==
PROVIDERS: PCP Nurse Practitioner Family; Visit Provider Internal Medicine
DX: M06.9 Rheumatoid arthritis, unspecified (principal)
CPT/HCPCS: 73218

== ENCOUNTER 2024-03-07 13:46 | Inpatient (IN) | payer MEDICARE, SELFPAY ==
--- NOTE | ~2024-03-07 | XR_ITS ---
XR chest PICC line Ordering provider: Obed Bond MD History: 84 years Male with . picc line placement . Comparison: March 10, 2024 FINDINGS: MEDIASTINUM: The cardiac silhouette is slightly enlarged. Postoperative changes in the mediastinum. C ongestive silvia. Right PICC line with the tip overlying superior vena cava. LUNGS: No infiltrates, effusions or pneumothorax. Bilateral interstitial changes which may indicate p ulmonary edema versus pneumonitis. OTHER: No free air under the diaphragm. IMPRESSION: Cardiomegaly with cardiac decompensation and pulmonary edema. Pneumonitis is not excluded. Reviewed, dictated and finalized at location A. OYSTER HARVESTER IMPRESSION: Cardiomegaly with cardiac decompensation and pulmonary edema. Pneumonitis is no t excluded.
--- NOTE | ~2024-03-07 | XR_ITS ---
EXAMINATION: XR chest 1V portable DATE: 03/10/2024 16:01 INDICATION: Coarse breath sounds. TECHNIQUE: A single frontal view of the chest was obtained. COMPARISON: Chest single view 01/12/2024 FINDINGS: Calcified right lung nodules and calcified right hilar lymph nodes are consistent with old granulomatous disease. No pleural effusion or pneumothorax. The heart size is normal. Median sternoto my wires and mediastinal surgical clips are seen, likely from prior coronary artery bypass grafting. There are surgical clips in the abdomen. IMPRESSION: 1. No acute cardiopulmonary disease. Reviewed, dictated and finalized at location B.
[2024-03-07 13:48] VITALS: BP 136/65; PULSE 69; RESP 15; TEMP 36.4; O2SAT 99
--- NOTE | 2024-03-07 14:00 | ED_ITS ---
HPI - General Adult General Chief complaint: Recheck/Abnormal Lab/Rx <Leeann Felipe APRN - Last Filed: 03/07/24 14:06> Stated complaint: MRI at [place] showed osteomyelitis <Leeann Felipe APRN - Last Filed: 03/07/24 14:06> Time Seen by Provider: 03/07/24 13:55 <Leeann Felipe APRN - Last Filed: 03/07/24 14:06> Focused HPI: Patient is an 84-year-old male who presents to the ER after receiving results from her MRI that his left 3rd digit has osteomyelitis. His daughter reports he was on vancomycin and Bactrim until the middle february due to a previous finger infection. Patient's daughter reports that his it infrastructure specialist lanced and abscess on his 3rd digit, which was positive for MRSA. She reports he has a history rheumatoid arthritis, Parkinson's, and mild dementia. Patient has been off of his RA medication for about a month, so his joint pain has increased. His daughter reports she does not know if the increased pain in his hand is from his RA or due to infection. She reports his L 3rd digit has become more red and swollen. GENERAL: Well-appearing, well-nourished, and in no acute distress. HEAD: Normocephalic, atraumatic. CHEST: Clear to auscultation. ?No respiratory distress. HEART: Regular rate and rhythm.? NEURO: ?Alert and oriented x3. SKIN: R 3rd digit is red, warm to the touch, and has a closed pocket of pus below the fingernail. Pt is able to move the digit, but joint movement is extremely painful and joint feels stiff. Patient screened in triage and initial orders placed.? ?Additional care and disposition to be based upon?diagnostic testing and treatment. <Leeann Felipe APRN - Last Filed: 03/07/24 14:06> Focused HPI: Patient is an 84-year-old male who presents to the ER after receiving results from her MRI that his left 3rd digit has osteomyelitis. His daughter reports he was on vancomycin and Bactrim until the middle of February due to a previous finger infection. Patient's daughter reports that his it infrastructure specialist lanced and abscess on his 3rd digit, which was positive for MRSA. She reports he has a history rheumatoid arthritis, Parkinson's, and mild dementia. Patient has been off of his RA medication for about a month, so his joint pain has increased. His daughter reports she does not know if the increased pain in his hand is from his RA or due to infection. She reports his L 3rd digit has become more red and swollen. GENERAL: Well-appearing, well-nourished, and in no acute distress. HEAD: Normocephalic, atraumatic. CHEST: Clear to auscultation. ?No respiratory distress. HEART: Regular rate and rhythm.? NEURO: ?Alert and oriented x3. SKIN: L 3rd digit is red, warm to the touch, and has a closed pocket of pus below the fingernail. Pt is able to move the digit, but joint movement is extremely painful and joint feels stiff. Patient screened in triage and initial orders placed.? ?Additional care and disposition to be based upon?diagnostic testing and treatment. <Fatou Ware MD - Last Filed: 03/07/24 18:59> Source: patient and family <Fatou Ware MD - Last Filed: 03/07/24 18:59> History of Present Illness HPI narrative: This is 84 year old male with history of RA who presents for left 3rd digit finger infection. Agree with MSE <Fatou Ware MD - Last Filed: 03/07/24 18:59> Related Data Home medications: Home Medications Medication Instructions Recorded Confirmed aspirin 81 mg tablet,delayed 81 mg PO QHS 03/23/19 03/07/24 release (Aspir-Low) tamsulosin 0.4 mg capsule 0.4 mg PO HS 04/24/20 03/07/24 gabapentin 300 mg capsule 300 mg PO QID 05/15/20 03/07/24 bumetanide 1 mg tablet 1 mg PO DAILY 12/17/20 03/07/24 carbidopa ER 25 mg-levodopa 100 mg 2 tablet PO TID 05/16/22 03/07/24 tablet,extended release nitroglycerin 0.4 mg sublingual 0.4 mg sublingual PRN PRN Chest 10/23/22 03/07/24 tablet Pain oxybutynin chloride 5 mg 5 mg PO DAILY 01/18/24 03/07/24 tablet,extended release 24 hr acetaminophen 325 mg capsule 650 mg PO QPM 02/01/24 03/07/24 (Tylenol) clobetasol 0.05 % topical ointment 1 applic topical DAILY 02/01/24 03/07/24 finasteride 5 mg tablet 5 mg PO DAILY 02/01/24 03/07/24 donepezil 10 mg tablet 5 mg PO DAILY 03/07/24 03/07/24 prednisone 2.5 mg tablet 2.5 mg PO BID 03/07/24 03/07/24 <Leeann Felipe APRN - Last Filed: 03/07/24 14:06> Allergies/adverse reactions: Allergies Allergy/AdvReac Type Severity Reaction Status Date / Time abatacept AdvReac Flushing Verified 03/07/24 13:47 <Leeann Felipe APRN - Last Filed: 03/07/24 14:06> Review of Systems Musculoskeletal: Musculoskeletal: Reports arthralgias and Reports joint swelling <Fatou Ware MD - Last Filed: 03/07/24 18:59> Integumentary/Breasts: Skin/Breast: Reports erythema <Fatou Ware MD - Last Filed: 03/07/24 18:59> PMFSH Past Medical History Medical History: Medical History Arthritis Barretts esophagus Carpal tunnel syndrome on both sides CHF (congestive heart failure) Echo May 2020: Normal left ventricular systolic function EF 69%, moderate concentric left ventricular hypertrophy, mild left ventricular enlargement, paradoxical septal motion consistent with bundle branch block, diastolic dysfunction grade 1, technically difficult study Chronic obstructive pulmonary disease Mild emphysematous changes noted on CT scan Coronary artery disease Degenerative joint disease of cervical and lumbar spine Dysphagia Gastroesophageal reflux disease Generalized osteoarthritis of multiple sites Hiatal hernia with gastroesophageal reflux disease and esophagitis Hypertension Hypothyroidism Mixed restrictive and obstructive lung disease Obstructive sleep apnea Parkinson disease Recurrent falls Recurrent falls Rheumatoid arthritis Rheumatoid arthritis of unspecified site with involvement of other organs and systems RLS (restless legs syndrome) <Leeann Felipe APRN - Last Filed: 03/07/24 14:06> Surgical History Surgical History: Surgical History H/O eye surgery Left eye to correct double vision History of dental christianity Dental implants History of four vessel coronary artery bypass graft History of Osvaldo fundoplication History of tonsillectomy and adenoidectomy History of uvulopalatopharyngoplasty Hx of cholecystectomy Status post cataract extraction of both eyes with insertion of intraocular lens Status post open reduction with internal fixation of fracture Knee cap <Leeann Felipe, COMMODITY MANAGEMENT SPECIALIST - Last Filed: 03/07/24 14:06> Family History Family History: Family History Father Acute myocardial infarction, Onset Age: 84 Family history of coronary artery disease, Onset Age: 84 Mother Carcinoma of colon, Onset Age: 64 Sibling Family history of coronary artery disease Carcinoma of colon <Leeann Felipe, COMMODITY MANAGEMENT SPECIALIST - Last Filed: 03/07/24 14:06> Social History Social History: Social History Social History: The patient sold his house in moved in with his daughter after the patient's in 2019. He was 59 years prior to his 's . He ambulates with a walker and/or cane. He used to smoke fiber 6 cigars a day but quit in 2014. He denies any alcohol use. 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 The patient is raised 2 of her own children and also raise the patient's sister who was 30 years younger. They took custody of the patient's sister when she was 16 after his mother had . Code status: Full code (however he would not want to be on ventilator for long- term, have a tracheostomy or a feeding tube.) Healthcare power of engineering program manager: Daughter Smoking packs per day: 1 Smoking cigarettes per day: 20.0 Years smoked: 25 Smoking pack-years: 25.00 Smoking status: Former smoker Tobacco type: cigarettes Smoking end date: 05/11/14 Alcohol intake: never Substance use: never Substance use type: does not use Do You Feel Safe in your Home?: Yes Lack of Transportation: No Lack of Food: Never True Current Housing: I Have Housing Concerned About Future Housing: No Difficulty Paying Gas/Electric Bills: No Difficulty Paying for Meds: No Currently Unemployed: No Education: Bachelor's Degree Difficulty w/ Childcare or Family Care: No Living arrangements: with family Additional living arrangements comments: WITH DAUGHTER Occupation/Education: retired Spiritual care concerns: No <Leeann Felipe APRN - Last Filed: 03/07/24 14:06> Exam Const: General: no acute distress and alert <Fatou Ware MD - Last Filed: 03/07/24 18:59> Nutritional Appearance: well nourished <Fatou Ware MD - Last Filed: 03/07/24 18:59> HENMT: Head: normal to inspection <Fatou Ware MD - Last Filed: 02/09 01/01 18:59> Eyes: EOM: EOMs intact bilaterally <Fatou Ware MD - Last Filed: 03/07/24 18:59> Resp: Effort & Inspection: normal respiratory effort <Fatou Ware MD - Last Filed: 03/07/24 18:59> Skin: Other: left 3rd finger that is swollen with erythema just below nail to PIP, difficult flexing finger, no palmar tenderness <Fatou Ware MD - Last Filed: 03/07/24 18:59> Neuro: General: patient oriented x3, moves all extremities and CN's II-XI inta ct bilaterally <Fatou Ware MD - Last Filed: 03/07/24 18:59> Extrem: Other: left 3rd digit swollen and red <Fatou Ware MD - Last Filed: 03/07/24 18:59> Psych: Mental Status: mental status grossly normal <Fatou Ware MD - Last Filed: 03/07/24 18:59> Affect: normal affect <Fatou Ware MD - Last Filed: 03/07/24 18:59> Attitude: cooperative <Fatou Ware MD - Last Filed: 03/07/24 18:59> Course Consultations Consultation #1: I discussed case with Dr. Wheeler , plastic surgery. He recommends warm soaks and IV antibiotics. Dr. Bryant accepts to hospitalist service. <Fatou Ware MD - Last Filed: 03/07/24 18:59> Date: 03/07/24 <Fatou Ware MD - Last Filed: 03/07/24 18:59> Time: 15:21 <Fatou Ware MD - Last Filed: 03/07/24 18:59> Vital Signs Vital signs: Vital Signs Temperature 97.5 F L 03/07/24 13:48 Pulse Rate 69 03/07/24 13:48 Respiratory Rate 15 03/07/24 13:48 Blood Pressure 136/65 03/07/24 13:48 Pulse Oximetry 99 03/07/24 13:48 Oxygen Delivery Room Air 03/07/24 13:48 Temperature 97.4 F L 03/07/24 17:19 Pulse Rate 51 L 03/07/24 17:19 Respiratory Rate 18 03/07/24 17:19 Blood Pressure 148/65 H 03/07/24 17:19 Pulse Oximetry 98 03/07/24 17:19 Oxygen Delivery Room Air 03/07/24 17:43 <Leeann Felipe APRN - Last Filed: 03/07/24 14:06> Vital Signs Temperature 97.5 F L 03/07/24 13:48 Pulse Rate 69 03/07/24 13:48 Respiratory Rate 15 03/07/24 13:48 Blood Pressure 136/65 03/07/24 13:48 Pulse Oximetry 99 03/07/24 13:48 Oxygen Delivery Room Air 03/07/24 13:48 Temperature 97.4 F L 03/07/24 17:19 Pulse Rate 51 L 03/07/24 17:19 Respiratory Rate 18 03/07/24 17:19 Blood Pressure 148/65 H 03/07/24 17:19 Pulse Oximetry 98 03/07/24 17:19 Oxygen Delivery Room Air 03/07/24 17:43 <Fatou Ware MD - Last Filed: 03/07/24 18:59> Medical Decision Making Medical Records Medical records reviewed: Yes I reviewed the external patient's medical records. <Fatou Ware MD - Last Filed: 03/07/24 18:59> Vital Signs Vital Signs: Vital Signs Temperature 97.5 F L 03/07/24 13:48 Pulse Rate 69 03/07/24 13:48 Respiratory Rate 15 03/07/24 13:48 Blood Pressure 136/65 03/07/24 13:48 Pulse Oximetry 99 03/07/24 13:48 Oxygen Delivery Room Air 03/07/24 13:48 Temperature 97.4 F L 03/07/24 17:19 Pulse Rate 51 L 03/07/24 17:19 Respiratory Rate 18 03/07/24 17:19 Blood Pressure 148/65 H 03/07/24 17:19 Pulse Oximetry 98 03/07/24 17:19 Oxygen Delivery Room Air 03/07/24 17:43 <Leeann Felipe, COMMODITY MANAGEMENT SPECIALIST - Last Filed: 03/07/24 14:06> Vital Signs Temperature 97.5 F L 03/07/24 13:48 Pulse Rate 69 03/07/24 13:48 Respiratory Rate 15 03/07/24 13:48 Blood Pressure 136/65 03/07/24 13:48 Pulse Oximetry 99 03/07/24 13:48 Oxygen Delivery Room Air 03/07/24 13:48 Temperature 97.4 F L 03/07/24 17:19 Pulse Rate 51 L 03/07/24 17:19 Respiratory Rate 18 03/07/24 17:19 Blood Pressure 148/65 H 03/07/24 17:19 Pulse Oximetry 98 03/07/24 17:19 Oxygen Delivery Room Air 03/07/24 17:43 <Fatou Ware MD - Last Filed: 03/07/24 18:59> Lab Data Lab results reviewed: Yes I reviewed the patient's lab results. <Fatou Ware MD - Last Filed: 03/07/24 18:59> Result diagrams: 03/07/24 14:51 03/07/24 14:51 <Leeann Felipe, COMMODITY MANAGEMENT SPECIALIST - Last Filed: 03/07/24 14:06> Labs: Lab Results 03/07/24 Range/Units 14:51 WBC 5.5 (4.5-10.0) K/mm3 RBC 3.68 L (4.6-6.20) M/mm3 Hgb 12.4 L (14.0-18.0) g/dL Hct 36.9 L (42.0-52.0) % MCV 100.3 H (80-100) fl MCH 33.7 (26-34) pg MCHC 33.6 (32-36) g/dl RDW 13.4 (11.5-14.5) % Plt Count 163 (150-375) k/mm3 MPV 10.1 (7.4-10.4) fl Immature Gran % (Auto) 0.2 (0-0.5) % Neut % (Auto) 78.1 H (45.5-73.1) % Lymph % (Auto) 11.6 L (18.3-44.2) % [place] % (Auto) 9.1 H (2.6-8.5) % Eos % (Auto) 0.5 (0-4.4) % Baso % (Auto) 0.5 (0.2-1.2) % Lymph # (Auto) 0.64 L (0.9-3.2) K/mm3 [place] # (Auto) 0.5 (0.1-0.6) K/mm3 Eos # (Auto) 0.0 (0-0.3) K/mm3 Baso # (Auto) 0.0 (0.0-0.1) K/mm3 Abs Immat Gran (auto) 0.01 (0.00-0.031) K/mm3 Absolute Neuts (auto) 4.3 (1.3-6.7) K/mm3 Absolute Nucleated RBC 0.000 (0.0-0.012) K/mm3 Nucleated RBC % 0.0 (0.0-0.2) % PT 12.8 (11.1-14.7) Seconds INR 0.9 APTT 28.6 (22.3-36.8) Seconds Sodium 141 (137-145) mmol/L Potassium 4.1 (3.4-5.0) mmol/L Chloride 105 (98-107) mmol/L Carbon Dioxide 29 (22-30) mmol/L Anion Gap 7 (4-12) mmol/L BUN 25 H (9-20) mg/dL Creatinine 0.70 (0.7-1.3) mg/dL Estim Creat Clear Calc 63 ml/min Estimated GFR > 60 (59 - ) Glucose 96 (65-110) mg/dL Lactic Acid 1.4 (0.7-2.0) mmol/L Calcium 8.5 (8.4-10.2) mg/dL Total Bilirubin 0.4 (0.2-1.3) mg/dL AST 30 (17-59) U/L ALT 9 (6-50) U/L Alkaline Phosphatase 166 H (38-126) U/L Total Protein 7.0 (6.3-8.2) g/dL Albumin 3.9 (3.5-5.1) g/dL <Leeann Felipe, COMMODITY MANAGEMENT SPECIALIST - Last Filed: 03/07/24 14:06> Lab Results 03/07/24 Range/Units 14:51 WBC 5.5 (4.5-10.0) K/mm3 RBC 3.68 L (4.6-6.20) M/mm3 Hgb 12.4 L (14.0-18.0) g/dL Hct 36.9 L (42.0-52.0) % MCV 100.3 H (80-100) fl MCH 33.7 (26-34) pg MCHC 33.6 (32-36) g/dl RDW 13.4 (11.5-14.5) % Plt Count 163 (150-375) k/mm3 MPV 10.1 (7.4-10.4) fl Immature Gran % (Auto) 0.2 (0-0.5) % Neut % (Auto) 78.1 H (45.5-73.1) % Lymph % (Auto) 11.6 L (18.3-44.2) % Candler % (Auto) 9.1 H (2.6-8.5) % Eos % (Auto) 0.5 (0-4.4) % Baso % (Auto) 0.5 (0.2-1.2) % Lymph # (Auto) 0.64 L (0.9-3.2) K/mm3 [place] # (Auto) 0.5 (0.1-0.6) K/mm3 Eos # (Auto) 0.0 (0-0.3) K/mm3 Baso # (Auto) 0.0 (0.0-0.1) K/mm3 Abs Immat Gran (auto) 0.01 (0.00-0.031) K/mm3 Absolute Neuts (auto) 4.3 (1.3-6.7) K/mm3 Absolute Nucleated RBC 0.000 (0.0-0.012) K/mm3 Nucleated RBC % 0.0 (0.0-0.2) % PT 12.8 (11.1-14.7) Seconds INR 0.9 APTT 28.6 (22.3-36.8) Seconds Sodium 141 (137-145) mmol/L Potassium 4.1 (3.4-5.0) mmol/L Chloride 105 (98-107) mmol/L Carbon Dioxide 29 (22-30) mmol/L Anion Gap 7 (4-12) mmol/L BUN 25 H (9-20) mg/dL Creatinine 0.70 (0.7-1.3) mg/dL Estim Creat Clear Calc 63 ml/min Estimated GFR > 60 (59 - ) Glucose 96 (65-110) mg/dL Lactic Acid 1.4 (0.7-2.0) mmol/L Calcium 8.5 (8.4-10.2) mg/dL Total Bilirubin 0.4 (0.2-1.3) mg/dL AST 30 (17-59) U/L ALT 9 (6-50) U/L Alkaline Phosphatase 166 H (38-126) U/L Total Protein 7.0 (6.3-8.2) g/dL Albumin 3.9 (3.5-5.1) g/dL <Fatou Ware MD - Last Filed: 03/07/24 18:59> Discharge Plan Discharge Clinical Impression: Finger osteomyelitis, left, Cellulitis of finger of left hand <Leeann Felipe APRN - Last Filed: 03/07/24 14:06> Patient Disposition: Still a Patient <Leeann Felipe APRN - Last Filed: 03/07/24 14:06> Condition: Stable <Leeann Felipe APRN - Last Filed: 03/07/24 14:06>
[2024-03-07] MEDS: HYDROcodone/acetaminophen (*CRX) 5-325 MG TABLET 1 TAB PO (14:39)
[2024-03-07 14:46] VITALS: BP 147/76; PULSE 61; RESP 18; O2SAT 97
[2024-03-07 14:50] VITALS: BP 147/76; PULSE 56; RESP 18; O2SAT 96
[2024-03-07 14:59] LABS: Basophils Percent Auto 0.5 % (0.2-1.2); Eosinophils Percent Auto 0.5 % (0-4.4); Hematocrit 36.9 % (42.0-52.0); Hemoglobin 12.4 g/dL (14.0-18.0); Immature Granulocyte Absolute 0.01 K/mm3 (0.00-0.031); Immature Granulocyte Percent A 0.2 % (0-0.5); Lymphocytes Absolute Auto 0.64 K/mm3 (0.9-3.2); Lymphocytes Percent Auto 11.6 % (18.3-44.2); Mean Corpuscular HGB Conc 33.6 g/dl (32-36); Mean Corpuscular Hemoglobin 33.7 pg (26-34); Mean Corpuscular Volume 100.3 fl (80-100); Mean Platelet Volume 10.1 fl (7.4-10.4); Monocytes Absolute Auto 0.5 K/mm3 (0.1-0.6); Monocytes Percent Auto 9.1 % (2.6-8.5); Neutrophils Absolute Auto 4.3 K/mm3 (1.3-6.7); Neutrophils Percent Auto 78.1 % (45.5-73.1); Platelet Count Result 163 k/mm3 (150-375); Red Blood Count 3.68 M/mm3 (4.6-6.20); Red Cell Distribution Width 13.4 % (11.5-14.5); White Blood Count 5.5 K/mm3 (4.5-10.0)
[2024-03-07 15:07] LABS: Lactic Acid Reflex 1.4 mmol/L (0.7-2.0)
[2024-03-07 15:08] LABS: Alanine Aminotransferase 9 U/L (6-50); Albumin Level 3.9 g/dL (3.5-5.1); Alkaline Phosphatase 166 U/L (38-126); Anion Gap 7 mmol/L (4-12); Aspartate Amino Transferase 30 U/L (17-59); Bilirubin,Total 0.4 mg/dL (0.2-1.3); Blood Urea Nitrogen 25 mg/dL (9-20); Calcium 8.5 mg/dL (8.4-10.2); Carbon Dioxide 29 mmol/L (22-30); Chloride 105 mmol/L (98-107); Estimated CRCL calculation 63 ml/min; Estimated Glomerular Filt Rate > 60; Glucose 96 mg/dL (65-110); Potassium 4.1 mmol/L (3.4-5.0); Sodium 141 mmol/L (137-145)
[2024-03-07 15:09] LABS: INR 0.9; Partial Thromboplastin Time 28.6 Seconds (22.3-36.8); Prothrombin Time 12.8 Seconds (11.1-14.7)
[2024-03-07] MEDS: cefTRIAXone 2 GM/NS 100 ML 2 GM/100 ML BAG IVPB (16:12)
[2024-03-07 16:40] VITALS: BP 125/49; PULSE 53; RESP 15; TEMP 36.7; O2SAT 98
[2024-03-07 17:03] VITALS: BMI 31.8
[2024-03-07 17:19] VITALS: BP 148/65; PULSE 51; RESP 18; TEMP 36.3; O2SAT 98
--- NOTE | 2024-03-07 17:53 | PM.IMHP ---
H&P: HPI History of Present Illness Date/Time: 03/07/24 17:53 Chief Complaint: 66-year-old male with past medical history of presents the hospital after receiving results from MRI of his finger that showed 3rd digit osteomyelitis. Patient was on vancomycin and Bactrim until mid February for the previous finger infection. Patient was seen by Plastic surgery on 02/22/2024 with recommendations for 1 compress, complete Bactrim course and follow-up in 2 weeks. Patient had I and D of the site with cultures so MRSA. in the emergency room the patient had normal white count, and was started on Rocephin and vancomycin. [facility], [facility] Past Medical History Medical History Arthritis Barretts esophagus Carpal tunnel syndrome on both sides CHF (congestive heart failure) Echo May 2020: Normal left ventricular systolic function EF 69%, moderate concentric left ventricular hypertrophy, mild left ventricular enlargement, paradoxical septal motion consistent with bundle branch block, diastolic dysfunction grade 1, technically difficult study Chronic obstructive pulmonary disease Mild emphysematous changes noted on CT scan Coronary artery disease Degenerative joint disease of cervical and lumbar spine Dysphagia Gastroesophageal reflux disease Generalized osteoarthritis of multiple sites Hiatal hernia with gastroesophageal reflux disease and esophagitis Hypertension Hypothyroidism Mixed restrictive and obstructive lung disease Obstructive sleep apnea Parkinson disease Recurrent falls Recurrent falls Rheumatoid arthritis Rheumatoid arthritis of unspecified site with involvement of other organs and systems RLS (restless legs syndrome) Surgical History Surgical History H/O eye surgery Left eye to correct double vision History of dental episcopal Dental implants History of four vessel coronary artery bypass graft History of Osvaldo fundoplication History of tonsillectomy and adenoidectomy History of uvulopalatopharyngoplasty Hx of cholecystectomy Status post cataract extraction of both eyes with insertion of intraocular lens Status post open reduction with internal fixation of fracture Knee cap Family History Family History Father Acute myocardial infarction, Onset Age: 84 Family history of coronary artery disease, Onset Age: 84 Mother Carcinoma of colon, Onset Age: 64 Sibling Family history of coronary artery disease Carcinoma of colon Social History Social History Social History: The patient sold his house in moved in with his daughter after the patient's in 2019. He was 59 years prior to his 's . He ambulates with a walker and/or cane. He used to smoke fiber 6 cigars a day but quit in 2014. He denies any alcohol use. 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 The patient is raised 2 of her own children and also raise the patient's sister who was 30 years younger. They took custody of the patient's sister when she was 16 after his mother had . Code status: Full code (however he would not want to be on ventilator for long-term, have a tracheostomy or a feeding tube.) Healthcare power of insurance defense attorney: Daughter Smoking packs per day: 1 Smoking cigarettes per day: 20.0 Years smoked: 25 Smoking pack-years: 25.00 Smoking status: Former smoker Tobacco type: cigarettes Smoking end date: 05/11/14 Alcohol intake: never Substance use: never Substance use type: does not use Do You Feel Safe in your Home?: Yes Lack of Transportation: No Lack of Food: Never True Current Housing: I Have Housing Concerned About Future Housing: No Difficulty Paying Gas/Electric Bills: No Difficulty Paying for Meds: No Currently Unemployed: No Education: Bachelor's Degree Difficulty w/ Childcare or Family Care: No Living arrangements: with family Additional living arrangements comments: WITH DAUGHTER Occupation/Education: retired Spiritual care concerns: No Meds Home Medications and Allergies Home Medications Medication Instructions Recorded Confirmed Type aspirin 81 mg tablet,delayed 81 mg PO QHS 03/23/19 03/07/24 History release (Aspir-Low) tamsulosin 0.4 mg capsule 0.4 mg PO HS 04/24/20 03/07/24 History gabapentin 300 mg capsule 300 mg PO QID 05/15/20 03/07/24 History carbamazepine 200 mg tablet 200 mg PO Q12H #60 tabs 09/14/20 03/07/24 Rx bumetanide 1 mg tablet 1 mg PO DAILY 12/17/20 03/07/24 History albuterol sulfate 90 mcg/actuation 1 - 2 puff inhalation Q4-6H PRN 04/14/22 03/07/24 Rx aerosol inhaler shortness of breath or wheezing #8.5 grams carbidopa ER 25 mg-levodopa 100 mg 2 tablet PO TID 05/16/22 03/07/24 History tablet,extended release ropinirole 1 mg tablet 3 mg PO QID Restless Leg(S) #30 05/20/22 03/07/24 Rx tabs nitroglycerin 0.4 mg sublingual 0.4 mg sublingual PRN PRN Chest 10/23/22 03/07/24 History tablet Pain triamcinolone acetonide 0.5 % 1 applic topical BID #15 grams 05/13/23 03/07/24 Rx topical cream hydroxychloroquine 200 mg tablet 400 mg PO DAILY #180 tabs 06/18/23 03/07/24 Rx (Plaquenil) pantoprazole 40 mg tablet,delayed 40 mg PO BID 3 months #180 tabs 07/10/23 03/07/24 Rx release famotidine 20 mg tablet 20 mg PO BID 3 months #180 tabs 08/10/23 03/07/24 Rx levothyroxine 75 mcg tablet 75 mcg PO DAILY #90 tabs 09/04/23 03/07/24 Rx oxybutynin chloride 5 mg 5 mg PO DAILY 01/18/24 03/07/24 History tablet,extended release 24 hr acetaminophen 325 mg capsule 650 mg PO QPM 02/01/24 03/07/24 History (Tylenol) clobetasol 0.05 % topical ointment 1 applic topical DAILY 02/01/24 03/07/24 History finasteride 5 mg tablet 5 mg PO DAILY 02/01/24 03/07/24 History acetaminophen 500 mg tablet 1,000 mg PO TID PRN pain #30 tabs 02/22/24 03/07/24 Rx (Tylenol Extra Strength) ibuprofen 600 mg tablet 600 mg PO TID PRN pain #20 tabs 02/22/24 03/07/24 Rx oxycodone 5 mg tablet 2.5 mg PO Q8H PRN pain #10 tabs 02/22/24 03/07/24 Rx Spiriva with HandiHaler 18 mcg and See Rx Instructions .Route 03/07/24 03/07/24 Rx inhalation capsules (tiotropium .COMPLEX #30 caps bromide) donepezil 10 mg tablet 5 mg PO DAILY 03/07/24 03/07/24 History prednisone 2.5 mg tablet 2.5 mg PO BID 03/07/24 03/07/24 History Allergies Allergy/AdvReac Type Severity Reaction Status Date / Time abatacept AdvReac Flushing Verified 03/07/24 13:47 Vital Signs Vital Signs - 24 hr 03/07/24 13:48 03/07/24 14:50 03/07/24 16:40 Temperature 97.5 F L 98.0 F Pulse Rate 69 56 L 53 L Respiratory Rate 15 18 15 Blood Pressure 136/65 147/76 H 125/49 L Pulse Oximetry 99 96 98 Oxygen Delivery Room Air 03/07/24 14:46 03/07/24 17:19 03/07/24 17:43 Temperature 97.4 F L Pulse Rate 61 51 L Respiratory Rate 18 18 Blood Pressure 147/76 H 148/65 H Pulse Oximetry 97 98 Oxygen Delivery Room Air Exam Narrative: General: well appearing, appears stated age. HEENT: normocephalic, atraumatic. Mucous membranes moist. EOMI, PERRLA, bilateral sclera anicteric, no conjunctival injection. Neck supple without JVD, lymphadenopathy, or bruit. Respiratory: clear to ascultation bilaterally. No rales/rhonic/wheezes. Cardiovascular: Regular rate and rhythm, normal S1-S2 upon ascultation. No murmurs, rubs, or clicks. PMI is nondisplaced, capillary refill less than 3 second. Abdomen: Soft, round, no pulsatile masses, nondistended and nontender. No rebound, no guarding. No CVA tenderness, no hepatosplenomegaly. Bowel sounds present to all four quadrants. No high pitch or tinkling sounds, resonant to percussion. Extremities: No cyanosis, clubbing, or edema present. Pulses are palpable 2/2. Active ROM to all four extremities. left 3rd digit: Neuro: Alert and orientated x 4. PERRLA. Cranial nerves 2-12 intact without focal deficit. Skin: Warm, dry, and intact, without rash, erythema, or lesion. Psych: pleasant, cooperative, normal speech, normal affect, no hallucinations, no dysarthia H&P: Results Labs Labs: Short CBC 03/07/24 Range/Units 14:51 WBC 5.5 (4.5-10.0) K/mm3 Hgb 12.4 L (14.0-18.0) g/dL Hct 36.9 L (42.0-52.0) % Plt Count 163 (150-375) k/mm3 BMP 03/07/24 14:51 Sodium 141 Potassium 4.1 Chloride 105 Carbon Dioxide 29 BUN 25 H Creatinine 0.70 Glucose 96 Calcium 8.5 Liver Function 03/07/24 Range/Units 14:51 Total Bilirubin 0.4 (0.2-1.3) mg/dL AST 30 (17-59) U/L ALT 9 (6-50) U/L Alkaline Phosphatase 166 H (38-126) U/L Albumin 3.9 (3.5-5.1) g/dL Assessment and Plan Assessment and plan (1) Osteomyelitis: Code(s): M86.9 - Osteomyelitis, unspecified Status: Acute (2) Generalized osteoarthritis of multiple sites: Code(s): M15.9 - Polyosteoarthritis, unspecified Status: Acute (3) Hypertension: Code(s): I10 - Essential (primary) hypertension Status: Chronic (4) Parkinson's disease: Code(s): G20 - Parkinson's disease Status: Chronic (5) Hypothyroidism: Code(s): E03.9 - Hypothyroidism, unspecified Status: Chronic
[2024-03-07] MEDS: VANCOMYCIN 2,000 MG/NS 500 ML 2,000 MG/500 ML BAG 150 MG IVPB (18:01)
[2024-03-07 20:36] VITALS: BP 134/59; PULSE 50; RESP 18; TEMP 36.7; O2SAT 97
--- NOTE | 2024-03-07 21:00 | P.HP_ITS ---
H&P: HPI History of Present Illness Date/Time: 03/07/24 21:00 Chief Complaint: MRI left middle finger demonstrate osteomyelitis Narrative: 84-year-old male with past medical history of mild Parkinson's related dementia (recently diagnosed) BPH with urinary incontinence, COPD, CHF, coronary artery disease, obstructive sleep apnea and recent diagnosis in treatment of MRSA 3rd distal left middle finger. Patient had a myxoid cyst drained from his left 3rd finger extensor surface just proximal to the nail cuticle by slot router early in February. Few days later he developed and abscess in the area just lateral to where the cyst had been drained. The area had been I and D x2 without improvement. He was prescribed Bactrim and he was referred to Dr. Galvan. Prior to going to see Dr. Galvan she ended up in our ER on February 15. Culture obtained at time of I and D grew out MRSA with scant growth. He was given 1 dose of vancomycin and discharged with instructions to continue Bactrim. He followed up with Dr. Galvan (or Dr. Colmenares) who had ordered an MRI of the finger. Prior to the MRI being performed patient's finger became acutely more inflamed and painful. Initially they thought this could be due to him being off of his rheumatoid medications. It had some associated swelling and e rythema. His daughter started to empirically soak his finger in Betadine. She reported that when she would pull his finger out of Betadine it had almost a purulence like material that would drain from it for a day or 2. She did contact Dr. Galvan office who recommended that they follow through with the MRI which they did which demonstrated evidence of osteomyelitis and septic arthritis. Given these imaging findings and the patient's increasing joint pain he came to the ER for evaluation and treatment. Patient was started on vancomycin in the ER. Patient has been afebrile and had normal white count. He has had decreased appetite over the last couple of weeks. He denies any nausea or vomiting. Despite his recent diagnosis of Parkinson's related dementia the patient is alert oriented x3. Although with his permission his daughter does provide a majority of the recent history. His daughter reports that the patient's oxybutynin was recently discontinued (about 5 days ago) due to risks of interactions with Aricept that was recently started. Since the patient's oxybutynin has been discontinued patient has had increased amount of urinary incontinence from his baseline. He denies any dysuria, hematuria or foul- smelling urine. His last bowel movement was yesterday and was normally formed. He reports that the pain in his finger is improved if he wears Coban dressing on it to provide some pressure. The pain is worse with any manipulation of the finger at all or with any movement. He is on Tylenol and gabapentin chronically for pain. But was recently started on oxycodone due to the pain in his finger which is helping somewhat. The patient recently received permission to drive again. However the 1st time he tried to drive again he started having double vision. 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 But over the last week he has noticed worsening and more frequent episodes of double vision. He denies any headaches or other acute neurologic symptoms. They did follow-up with the project officer this past week told him there was there was nothing acutely wrong. The project officer felt the patient's increased double vision was due to fatigue. The patient is having pain in his buttocks. He he had a fall at home on the and came in for evaluation and was found to have a coccygeal fracture. Review of Systems Review of Systems: 12 systems were reviewed with pertinent positives and negatives per HPI. Except as documented in the HPI, all other systems were reviewed and are negative. [facility] Past Medical History Medical History (Updated 03/08/24 @ 05:31 by Melany Denney DO) Arthritis Barretts esophagus BPH (benign prostatic hyperplasia) Carpal tunnel syndrome on both sides CHF (congestive heart failure) Echo May 2020: Normal left ventricular systolic function EF 69%, moderate concentric left ventricular hypertrophy, mild left ventricular enlargement, paradoxical septal motion consistent with bundle branch block, diastolic dysfunction grade 1, technically difficult study Chronic obstructive pulmonary disease Mild emphysematous changes noted on CT scan Coronary artery disease 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 Dysphagia Gastroesophageal reflux disease Generalized osteoarthritis of multiple sites Hiatal hernia with gastroesophageal reflux disease and esophagitis Hypertension Hypothyroidism Mixed restrictive and obstructive lung disease Obstructive sleep apnea With sleep study in 2020 recommending BiPAP Parkinson disease Recurrent falls Rheumatoid arthritis Rheumatoid arthritis of unspecified site with involvement of other organs and systems RLS (restless legs syndrome) Surgical History Surgical History H/O eye surgery Left eye to correct double vision History of dental restorationism Dental implants History of four vessel coronary artery bypass graft History of Osvaldo fundoplication History of tonsillectomy and adenoidectomy History of uvulopalatopharyngoplasty Hx of cholecystectomy Status post cataract extraction of both eyes with insertion of intraocular lens Status post open reduction with internal fixation of fracture Knee cap Family History Family History Father Acute myocardial infarction, Onset Age: 84 Family history of coronary artery disease, Onset Age: 84 Mother Carcinoma of colon, Onset Age: 64 Sibling Family history of coronary artery disease Carcinoma of colon Social History Social History (Updated 03/08/24 @ 05:12 by Melany Denney DO) Social History: The patient sold his house in moved in with his daughter after the patient's in 2019. He was 59 years prior to his 's . He ambulates with a walker and/or cane. He used to smoke 5 or 6 cigars a day but quit in 2014. He denies any alcohol use. 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 The patient and his raised 2 of her own children and also raise the patient's sister who was 30 years younger. They took custody of the patient's sister when she was 16 after his mother had . Code status: Full code (however he would not want to be on ventilator for long- term, have a tracheostomy or a feeding tube.) Healthcare power of mergers and acquisitions attorney: Daughter Smoking packs per day: 1 Smoking cigarettes per day: 20.0 Years smoked: 25 Smoking pack-years: 25.00 Smoking status: Former smoker Tobacco type: cigarettes Smoking end date: 05/11/14 Alcohol intake: never Substance use: never Substance use type: does not use Do You Feel Safe in your Home?: Yes Lack of Transportation: No Lack of Food: Never True Current Housing: I Have Housing Concerned About Future Housing: No Difficulty Paying Gas/Electric Bills: No Difficulty Paying for Meds: No Currently Unemployed: No Education: Bachelor's Degree Difficulty w/ Childcare or Family Care: No Living arrangements: with family Additional living arrangements comments: WITH DAUGHTER Occupation/Education: retired Spiritual care concerns: No Meds Home Medications and Allergies Home Medications Medication Instructions Recorded Confirmed Type aspirin 81 mg tablet,delayed 81 mg PO QHS 03/23/19 03/07/24 History release (Aspir-Low) tamsulosin 0.4 mg capsule 0.4 mg PO HS 04/24/20 03/07/24 History gabapentin 300 mg capsule 300 mg PO QID 05/15/20 03/07/24 History carbamazepine 200 mg tablet 200 mg PO Q12H #60 tabs 09/14/20 03/07/24 Rx bumetanide 1 mg tablet 1 mg PO DAILY 12/17/20 03/07/24 History albuterol sulfate 90 mcg/actuation 1 - 2 puff inhalation Q4-6H PRN 04/14/22 03/07/24 Rx aerosol inhaler shortness of breath or wheezing #8.5 grams carbidopa ER 25 mg-levodopa 100 mg 2 tablet PO TID 05/16/22 03/07/24 History tablet,extended release ropinirole 1 mg tablet 3 mg PO QID Restless Leg(S) #30 05/20/22 03/07/24 Rx tabs nitroglycerin 0.4 mg sublingual 0.4 mg sublingual PRN PRN Chest 10/23/22 03/07/24 History tablet Pain hydroxychloroquine 200 mg tablet 400 mg PO DAILY #180 tabs 06/18/23 03/07/24 Rx (Plaquenil) pantoprazole 40 mg tablet,delayed 40 mg PO BID 3 months #180 tabs 07/10/23 Rx release famotidine 20 mg tablet 20 mg PO BID 3 months #180 tabs 08/10/23 03/07/24 Rx levothyroxine 75 mcg tablet 75 mcg PO DAILY #90 tabs 09/04/23 03/07/24 Rx oxybutynin chloride 5 mg 5 mg PO DAILY 01/18/24 03/07/24 History tablet,extended release 24 hr acetaminophen 325 mg capsule 650 mg PO QPM 02/01/24 03/07/24 History (Tylenol) finasteride 5 mg tablet 5 mg PO DAILY 02/01/24 03/07/24 History acetaminophen 500 mg tablet 1,000 mg PO TID PRN pain #30 tabs 02/22/24 03/07/24 Rx (Tylenol Extra Strength) ibuprofen 600 mg tablet 600 mg PO TID PRN pain #20 tabs 02/22/24 03/07/24 Rx oxycodone 5 mg tablet 2.5 mg PO Q8H PRN pain #10 tabs 02/22/24 03/07/24 Rx donepezil 10 mg tablet 5 mg PO DAILY 03/07/24 03/07/24 History melatonin 12 mg tablet 15 mg PO HS PRN difficulty sleeping 03/07/24 03/07/24 History polyethylene glycol 3350 17 gram 17 g PO DAILY 03/07/24 03/07/24 History oral powder packet (Miralax) prednisone 2.5 mg tablet 2.5 mg PO BID 03/07/24 03/07/24 History tiotropium bromide 18 mcg capsule 18 mcg inhalation DAILY 03/07/24 03/07/24 History with inhalation device (Spiriva with HandiHaler) Allergies Allergy/AdvReac Type Severity Reaction Status Date / Time abatacept AdvReac Flushing Verified 03/07/24 13:47 Vital Signs Vital Signs - 24 hr 03/07/24 13:48 03/07/24 14:50 03/07/24 16:40 Temperature 97.5 F L 98.0 F Pulse Rate 69 56 L 53 L Respiratory Rate 15 18 15 Blood Pressure 136/65 147/76 H 125/49 L Pulse Oximetry 99 96 98 Oxygen Delivery Room Air 03/07/24 14:46 03/07/24 17:19 03/07/24 17:43 Temperature 97.4 F L Pulse Rate 61 51 L Respiratory Rate 18 18 Blood Pressure 147/76 H 148/65 H Pulse Oximetry 97 98 Oxygen Delivery Room Air 03/07/24 20:36 Temperature 98.1 F Pulse Rate 50 L Respiratory Rate 18 Blood Pressure 134/59 L Pulse Oximetry 97 Oxygen Delivery Exam Narrative: Weight 81.4 kg BMI 31.8 Const: Other: No acute distress, appears stated age, well-developed well-nourished HENMT: Other: Head is normocephalic atraumatic, mucous membranes are moist, no oral pharyngeal erythema, dentures in place Eyes: Other: Pupils are equal and reactive, patient has dysconjugate gaze of the right eye which is worse when the patient removed his eyeglasses. No conjunctival pallor, no scleral icterus Neck: Other: No JVD, no lymphadenopathy, nontender Resp: Other: Initially some coarse breath sounds were noted in the right upper lobe which clear with cough, no increased work of breathing, no tachypnea Cardio: Other: Mild bradycardia, 2+ bilateral radial pedal pulses, no peripheral edema, no murmur GI: Other: Soft, nontender, positive bowel sounds : Other: Incontinent of urine Skin: Other: No pallor, non jaundice, erythema the 3rd distal phalanx of the left hand Neuro: Other: Alert orient x3, speech is clear but slow, no obvious facial asymmetry, no gross motor deficits noted during the course of conversation Extrem: Other: Erythema and edema of the distal left phalanx at the 1st interphalangeal joint with small ulceration of the dorsal surface, erythema is mostly on the dorsal surface and extends laterally but does not extend to palmar surface, cap refill is 2-3 seconds, patient has marked decreased range of motion of the joint due to discomfort. He has are joint deformities consistent with his history of rheumatoid arthritis Psych: Other: Appropriate mood and affect, pleasant and cooperative, fair judgment and insight H&P: Results Labs Labs: Laboratory Tests 03/07/24 14:51 03/07/24 14:51 03/07/24 14:51 WBC 5.5 RBC 3.68 L Hgb 12.4 L Hct 36.9 L MCV 100.3 H MCH 33.7 MCHC 33.6 RDW 13.4 Plt Count 163 MPV 10.1 Immature Gran % (Auto) 0.2 Neut % (Auto) 78.1 H Lymph % (Auto) 11.6 L [place] % (Auto) 9.1 H Eos % (Auto) 0.5 Baso % (Auto) 0.5 Lymph # (Auto) 0.64 L [place] # (Auto) 0.5 Eos # (Auto) 0.0 Baso # (Auto) 0.0 Abs Immat Gran (auto) 0.01 Absolute Neuts (auto) 4.3 Absolute Nucleated RBC 0.000 Nucleated RBC % 0.0 PT 12.8 INR 0.9 APTT 28.6 Sodium 141 Potassium 4.1 Chloride 105 Carbon Dioxide 29 Anion Gap 7 BUN 25 H Creatinine 0.70 Estim Creat Clear Calc 63 Estimated GFR > 60 Glucose 96 Lactic Acid 1.4 Calcium 8.5 Total Bilirubin 0.4 AST 30 ALT 9 Alkaline Phosphatase 166 H Total Protein 7.0 Albumin 3.9 EXAMINATION: MR hand LT wo con DATE: 03/07/2024 10:01 INDICATION: Left hand third digit pain and swelling. Rheumatoid arthritis. TECHNIQUE: Magnetic resonance imaging (MRI) of the left hand was performed without intravenous contrast to include the metacarpals and digits. Sequences included axial, sagittal and coronal T1-weighted FSE and T2-weighted FS FSE. COMPARISON: Left third digit radiographs dated 02/16/2024 FINDINGS: Bone alignment is normal. No fracture. There is disproportionately severe joint space narrowing at the third distal interphalangeal joint relative to the remaining interphalangeal joints. There is marrow edema and associated geographic decreased T1 marrow fat signal at both sides of the joint space throughout the proximal two thirds of the distal phalanx and at the head of the middle phalanx. Their is soft tissue swelling throughout the third digit most prominent at the distal interphalangeal joint. Findings are suspicious for septic arthritis. Bone marrow signal is otherwise normal throughout the visualized hand which excludes the proximal carpal row. There is thickening of the radial collateral ligament complexes with associated heterotopic ossification at the second and third metacarpophalangeal joints. No associated soft tissue or marrow edema to suggest acute inflammatory process in this most likely represents scarring related to chronic partial tears of the ligaments or chronic enthesopathy. The remaining collateral ligament complexes at the met acarpophalangeal and interphalangeal joints appear normal. The flexor and extensor tendons are normal. No joint effusions or other abnormal fluid collections to suggest abscess. IMPRESSION: 1. Disproportionate joint space narrowing at the third distal interphalangeal joint with adjacent marrow signal changes at the base of the distal phalanx and head of the middle phalanx most consistent with septic arthritis with osteomyelitis. A message has been left with the third republican inside sales executive service for Dr. Ochoa at 12:55 PM. Culture the patient's abscess from 02/16/2024 obtained by ER staff grew out scant growth of MRSA Assessment and Plan Assessment and plan (1) Finger osteomyelitis, left: Code(s): M86.9 - Osteomyelitis, unspecified Status: Acute (2) Septic arthritis of interphalangeal joint of finger: Code(s): M00.9 - Pyogenic arthritis, unspecified Status: Acute (3) Dementia due to Parkinson's disease: Qualifiers: Dementia behavioral or psychological symptom: without behavioral, psychotic, or mood disturbance or anxiety Dementia severity: mild Qualified Code(s): G20.A1 - Parkinson's disease without dyskinesia, without mention of fluctuations; F02.A0 - Dementia in other diseases classified elsewhere, mild, without behavioral disturbance, psychotic disturbance, mood disturbance, and anxiety Code(s): G20.A1 - Parkinson's disease without dyskinesia, without mention of fluctuations; F02.80 - Dementia in other diseases classified elsewhere, unspecified severity, without behavioral disturbance, psychotic disturbance, mood disturbance, and anxiety Status: Acute (4) BPH (benign prostatic hyperplasia): Qualifiers: Lower urinary tract symptom detail: urinary frequency Lower urinary tract symptom presence: symptoms present Qualified Code(s): N40.1 - Benign prostatic hyperplasia with lower urinary tract symptoms; R35.0 - Frequency of micturition Code(s): N40.0 - Benign prostatic hyperplasia without lower urinary tract symptoms Status: Inactive (5) Urinary incontinence due to benign prostatic hyperplasia: Code(s): N40.1 - Benign prostatic hyperplasia with lower urinary tract symptoms; N39.498 - Other specified urinary incontinence Status: Acute Plan The patient has osteomyelitis and septic arthritis of distal 3rd phalanx in the 1st PIP joint. Patient was started on vancomycin. Patient will likely need PICC line for long-term antibiotic therapy. Will consult however is on cough or plastic surgery to follow with patient. He will repeat CBC and electrolyte panel in a.m.. Patient reports some will daughter reports increasing urinary incontinence due to stopping oxybutynin recently. He was stopped on the oxybutynin due to starting Aricept and there being a contraindication. The daughter does not know if she wants to keep her father on Aricept. I told him that we could continue this or hold it depending on their preference. But there are risks with both oxybutynin for urinary retention and Aricept for orthostatic hypotension are worsening autonomic dysfunction that could be associated with Parkinson's disease resulting in further falls. At this time will continue to hold the oxybutynin. Postvoid residual was obtained which was only 140. No large amounts of urinary retention at this time. Will continue to monitor. Will continue the remainder the patient's home BPH medications. Patient has been placed on fall precautions in the setting of recent falls. Patient had evidently been holding his home rheumatoid medications due to recent infection. Will discuss with Surgical Service. If they desire to continue to hold the medications that would be okay with me. At this point patient is currently on prednisone 2.5 mg p.o. b.i.d. and hydroxychloroquine. Otherwise will continue the remainder the patient's home medications including Requip, inhalers, constipation medications and Parkinson's medications. The patient's BUN is slightly elevated but appears from baseline. Will continue home Bumex he appears euvolemic with no evidence of acute CHF exacerbation. Quality VTE Prophylaxis VTE prophylaxis: pharmacologic ordered (Lovenox 40 mg subQ daily.) Hospitalist [facility] Advance Care Plan I have confirmed that the patient's Advanced Care Plan is present, code status is documented, or surrogate decision maker is listed in patient medical record.: Yes Medication Reconciliation I have utilized all available resources to obtain, update and review the patients current medications (includes all prescriptions, OTC, herbals, cannabis, and nutritional supplements).: Yes
[2024-03-07] MEDS: ASPIRIN 81 MG ENTERIC TABLET PO (22:21)
[2024-03-07] MEDS: carBAMazepine 200 MG TABLET PO (22:22)
[2024-03-07] MEDS: TAMSULOSIN HCL 0.4 MG CAPSULE PO (22:23)
[2024-03-07] MEDS: DONEPEZIL HCL 5 MG TABLET PO (22:23)
[2024-03-07] MEDS: rOPINIRole HCL 1 MG TABLET 2 MG PO (22:24)
[2024-03-07] MEDS: GABAPENTIN 300 MG CAPSULE PO (22:25)
[2024-03-07] MEDS: CARBIDOPA/LEVODOPA 25/100 MG TABLET 2 TABLET PO (22:32)
[2024-03-07] MEDS: WATER FOR IRRIGATION, STERILE 1,000 ML BOTTLE 1000 ML (22:35)
[2024-03-08 05:00] VITALS: BP 118/53; PULSE 58; RESP 20; TEMP 36.3; O2SAT 99
[2024-03-08] MEDS: LEVOTHYROXINE SODIUM 75 MCG TABLET PO (06:58)
[2024-03-08 07:56] LABS: Anion Gap 7 mmol/L (4-12); Blood Urea Nitrogen 22 mg/dL (9-20); CRP 0.7 mg/dL (<1.0); Calcium 8.5 mg/dL (8.4-10.2); Carbon Dioxide 28 mmol/L (22-30); Chloride 105 mmol/L (98-107); Estimated CRCL calculation 62 ml/min; Estimated Glomerular Filt Rate > 60; Glucose 84 mg/dL (65-110); Potassium 4.5 mmol/L (3.4-5.0); Sodium 140 mmol/L (137-145)
[2024-03-08 08:03] LABS: Basophils Percent Auto 0.4 % (0.2-1.2); Eosinophils Absolute Auto 0.1 K/mm3 (0-0.3); Eosinophils Percent Auto 2.4 % (0-4.4); Hematocrit 36.3 % (42.0-52.0); Hemoglobin 12.1 g/dL (14.0-18.0); Immature Granulocyte Absolute 0.01 K/mm3 (0.00-0.031); Immature Granulocyte Percent A 0.2 % (0-0.5); Lymphocytes Absolute Auto 0.95 K/mm3 (0.9-3.2); Lymphocytes Percent Auto 19.1 % (18.3-44.2); Mean Corpuscular HGB Conc 33.3 g/dl (32-36); Mean Platelet Volume 10.5 fl (7.4-10.4); Monocytes Absolute Auto 0.6 K/mm3 (0.1-0.6); Monocytes Percent Auto 11.2 % (2.6-8.5); Neutrophils Absolute Auto 3.3 K/mm3 (1.3-6.7); Neutrophils Percent Auto 66.7 % (45.5-73.1); Platelet Count Result 160 k/mm3 (150-375); Red Blood Count 3.56 M/mm3 (4.6-6.20); Red Cell Distribution Width 13.3 % (11.5-14.5)
[2024-03-08] MEDS: polyethylene glycoL 3350 17 GM POWD.PACK PO (08:57)
[2024-03-08] MEDS: BUMETANIDE 1 MG TABLET PO (08:57)
[2024-03-08] MEDS: PANTOPRAZOLE 40 MG TABLET PO ×2 (08:57→20:48)
[2024-03-08] MEDS: carBAMazepine 200 MG TABLET PO ×2 (08:57→20:48)
[2024-03-08] MEDS: HYDROXYCHLOROQUINE SULFATE 200 MG TABLET 400 MG PO (08:57)
[2024-03-08] MEDS: predniSONE 2.5 MG TABLET PO ×2 (08:57→17:06)
[2024-03-08] MEDS: GABAPENTIN 300 MG CAPSULE PO ×4 (08:57→20:47)
[2024-03-08] MEDS: FINASTERIDE 5 MG TABLET PO (08:57)
[2024-03-08] MEDS: FAMOTIDINE 20 MG TABLET PO ×2 (08:57→20:48)
[2024-03-08] MEDS: CARBIDOPA/LEVODOPA 25/100 MG TABLET 2 TABLET PO ×3 (08:58→18:31)
[2024-03-08] MEDS: rOPINIRole HCL 1 MG TABLET PO ×2 (08:58→15:35)
[2024-03-08] MEDS: ENOXAPARIN 40 MG/0.4 ML SYRINGE SUB-Q (08:58)
[2024-03-08] MEDS: VANCOMYCIN 1,500 MG/NS 500 ML 1,500 MG/500 ML BAG 250 MG IVPB (13:38)
[2024-03-08 14:00] VITALS: BP 108/52; PULSE 58; RESP 18; TEMP 37.3; O2SAT 96
--- NOTE | 2024-03-08 15:06 | PM.IMPN ---
Progress Note: A&P Assessment and Plan (1) Finger osteomyelitis, left: Code(s): M86.9 - Osteomyelitis, unspecified Status: Acute (2) Septic arthritis of interphalangeal joint of finger: Code(s): M00.9 - Pyogenic arthritis, unspecified Status: Acute (3) Dementia due to Parkinson's disease: Qualifiers: Dementia severity: mild Dementia behavioral or psychological symptom: without behavioral, psychotic, or mood disturbance or anxiety Qualified Code(s): G20.A1 - Parkinson's disease without dyskinesia, without mention of fluctuations; F02.A0 - Dementia in other diseases classified elsewhere, mild, without behavioral disturbance, psychotic disturbance, mood disturbance, and anxiety Code(s): G20.A1 - Parkinson's disease without dyskinesia, without mention of fluctuations; F02.80 - Dementia in other diseases classified elsewhere, unspecified severity, without behavioral disturbance, psychotic disturbance, mood disturbance, and anxiety Status: Acute (4) BPH (benign prostatic hyperplasia): Qualifiers: Lower urinary tract symptom presence: symptoms present Lower urinary tract symptom detail: urinary frequency Qualified Code(s): N40.1 - Benign prostatic hyperplasia with lower urinary tract symptoms; R35.0 - Frequency of micturition Code(s): N40.0 - Benign prostatic hyperplasia without lower urinary tract symptoms Status: Inactive (5) Urinary incontinence due to benign prostatic hyperplasia: Code(s): N40.1 - Benign prostatic hyperplasia with lower urinary tract symptoms; N39.498 - Other specified urinary incontinence Status: Acute Plan Assessment and plan osteomyelitis and septic arthritis of the left distal 3rd phalanx of the 1st PIP joint MRI reviewed Patient noted outpatient culture was positive for MRSA continue Vancomycin Plastic surgery consulted Parkinson's disease continue home meds possible overactive bladder Was on Oxybutynin will discuss Myrbetriq with patient BPH continue home meds DVT prophylaxis on lovenox Subjective Date/time seen: 03/08/24 15:06 Interval history: Comfortable at bedside Left third digit osteomyelitis and septic arthritis Plastic surgery consulted Review of Systems Review of Systems: 12 systems were reviewed with pertinent positives and negatives per HPI. Except as documented in the HPI, all other systems were reviewed and are negative. Exam Narrative: Weight 81.4 kg BMI 31.8 Const: Other: No acute distress, appears stated age, well-developed well-nourished HENMT: Other: Head is normocephalic atraumatic, mucous membranes are moist, no oral pharyngeal erythema, dentures in place Eyes: Other: Pupils are equal and reactive, patient has dysconjugate gaze of the right eye which is worse when the patient removed his eyeglasses. No conjunctival pallor, no scleral icterus Neck: Other: No JVD, no lymphadenopathy, nontender Resp: Other: Initially some coarse breath sounds were noted in the right upper lobe which clear with cough, no increased work of breathing, no tachypnea Cardio: Other: Mild bradycardia, 2+ bilateral radial pedal pulses, no peripheral edema, no murmur GI: Other: Soft, nontender, positive bowel sounds : Other: Incontinent of urine Skin: Other: No pallor, non jaundice, erythema the 3rd distal phalanx of the left hand Neuro: Other: Alert orient x3, speech is clear but slow, no obvious facial asymmetry, no gross motor deficits noted during the course of conversation Extrem: Other: Erythema and edema of the distal left phalanx at the 1st interphalangeal joint with small ulceration of the dorsal surface, erythema is mostly on the dorsal surface and extends laterally but does not extend to palmar surface, cap refill is 2-3 seconds, patient has marked decreased range of motion of the joint due to discomfort. He has are joint deformities consistent with his history of rheumatoid arthritis Psych: Other: Appropriate mood and affect, pleasant and cooperative, fair judgment and insight Objective Data Vital Signs Vital Signs: Vital Signs - 24 hr 03/07/24 16:40 03/07/24 17:19 03/07/24 17:43 Temperature 98.0 F 97.4 F L Pulse Rate 53 L 51 L Respiratory Rate 15 18 Blood Pressure 125/49 L 148/65 H Pulse Oximetry 98 98 Oxygen Delivery Room Air 03/07/24 20:36 03/08/24 05:00 03/08/24 08:00 Temperature 98.1 F 97.3 F L Pulse Rate 50 L 58 L Respiratory Rate 18 20 Blood Pressure 134/59 L 118/53 L Pulse Oximetry 97 99 Oxygen Delivery Room Air Intake/Output Intake/Output: Intake & Output 03/05/24 03/06/24 03/07/24 03/08/24 23:59 23:59 23:59 23:59 Intake Total 340 830 Balance 340 830 Meds/Results Medications: Active Medications Generic Name Dose Route Start Last Admin Trade Name Ajithq PRN Reason Stop Dose Admin Acetaminophen 650 mg 03/08/24 18:00 Acetaminophen 325 Mg Tablet PO QPM CHRISTINE Acetaminophen 1,000 mg 03/07/24 20:01 Acetaminophen 500 Mg Tablet PO TID PRN pain 1-3 or fever Albuterol 2 puff 03/07/24 20:01 Albuterol Sulfate (*Sp) Aerosol 1 Puff INHALATION Q4HRT PRN shortness of breath or wheezing Aspirin 81 mg 03/07/24 21:00 03/07/24 22:21 Aspirin 81 Mg Enteric Tablet PO 81 mg QHS CHRISTINE Administration Bumetanide 1 mg 03/08/24 09:00 03/08/24 08:57 Bumetanide 1 Mg Tablet PO 1 mg DAILY [facility]STINE Administration Carbamazepine 200 mg 03/07/24 21:00 03/08/24 08:57 Carbamazepine 200 Mg Tablet PO 200 mg Q12H [facility]STINE Administration Carbidopa/Levodopa 2 tablet 03/08/24 08:30 03/08/24 13:05 Carbidopa/Levodopa 25/100 Mg Tablet PO 2 tablet DAILY@0830,1230,1830 [facility]STINE Administration Donepezil HCl 5 mg 03/07/24 21:00 03/07/24 22:23 Donepezil Hcl 5 Mg Tablet PO 03/10/24 21:01 5 mg HS CHRISTINE Administration Donepezil HCl 10 mg 03/11/24 21:00 Donepezil Hcl 10 Mg Tablet PO HS [facility]RISTINE Enoxaparin Sodium 40 mg 03/08/24 09:00 03/08/24 08:58 Enoxaparin 40 Mg/0.4 Ml Syringe SUB-Q 40 mg DAILY [facility]STINE Administration Famotidine 20 mg 03/08/24 09:00 03/08/24 08:57 Famotidine 20 Mg Tablet PO 20 mg Q12HR [facility]STINE Administration Finasteride 5 mg 03/08/24 09:00 03/08/24 08:57 Finasteride 5 Mg Tablet PO 5 mg DAILY [facility]STINE Administration Gabapentin 300 mg 03/07/24 21:00 03/08/24 13:05 Gabapentin 300 Mg Capsule PO 300 mg QID CHRISTINE Administration Hydroxychloroquine Sulfate 400 mg 03/08/24 09:00 03/08/24 08:57 Hydroxychloroquine Sulfate 200 Mg Tablet PO 400 mg DAILY [facility]STINE Administration Vancomycin HCl 1,500 mg in 500 mls @ 250 mls/hr 03/08/24 12:00 03/08/24 13:38 Vancomycin 1,500 Mg/Ns 500 Ml IVPB 250 mls/hr Q18H [facility]STINE Administration Ibuprofen 600 mg 03/07/24 20:01 Ibuprofen 600 Mg Tablet PO TID PRN pain 4-6 Levothyroxine Sodium 75 mcg 03/08/24 06:30 03/08/24 06:58 Levothyroxine Sodium 75 Mcg Tablet PO 75 mcg DAILY@0630 [facility]STINE Administration Melatonin 10 mg 03/08/24 04:57 Melatonin 5 Mg Tablet PO HS PRN difficulty sleeping Nitroglycerin 0.4 mg 03/07/24 20:01 Nitroglycerin Sl 0.4 Mg Tablet SUBLINGUAL PRN PRN Chest Pain Oxycodone HCl 2.5 mg 03/07/24 20:01 Oxycodone Hcl (*Crx) 2.5 Mg Tab Ir PO Q8H PRN pain 7-10 Pantoprazole Sodium 40 mg 03/08/24 09:00 03/08/24 08:57 Pantoprazole 40 Mg Tablet PO 40 mg Q12HR CHRISTINE Administration Polyethylene Glycol 17 gm 03/08/24 09:00 03/08/24 08:57 Polyethylene Glycol 3350 17 Gm Powd.Pack PO 17 gm DAILY [facility] Administration Prednisone 2.5 mg 03/08/24 09:00 03/08/24 08:57 Prednisone 2.5 Mg Tablet PO 2.5 mg BID CHRISTINE Administration Ropinirole HCl 1 mg 03/08/24 08:30 03/08/24 08:58 Ropinirole Hcl 1 Mg Tablet PO 1 mg DAILY@0830,1530 [facility]STINE Administration Ropinirole HCl 2 mg 03/07/24 22:00 03/07/24 22:24 Ropinirole Hcl 1 Mg Tablet PO 2 mg 2200 CHRISTINE Administration Tamsulosin HCl 0.4 mg 03/07/24 21:00 03/07/24 22:23 Tamsulosin Hcl 0.4 Mg Capsule PO 0.4 mg HS [facility] Administration Umeclidinium [place] 1 puff 03/08/24 08:00 Umeclidinium [place] 62.5 Mcg Ellipta INHALATION DAILYRT [facility] Labs Labs: Laboratory Results - last 24 hr 03/07/24 03/08/24 14:51 07:25 WBC 5.0 RBC 3.56 L Hgb 12.1 L Hct 36.3 L MCV 102.0 H MCH 34.0 MCHC 33.3 RDW 13.3 Plt Count 160 MPV 10.5 H Immature Gran % (Auto) 0.2 Neut % (Auto) 66.7 Lymph % (Auto) 19.1 [place] % (Auto) 11.2 H Eos % (Auto) 2.4 Baso % (Auto) 0.4 Lymph # (Auto) 0.95 [place] # (Auto) 0.6 Eos # (Auto) 0.1 Baso # (Auto) 0.0 Abs Immat Gran (auto) 0.01 Absolute Neuts (auto) 3.3 Absolute Nucleated RBC 0.000 Nucleated RBC % 0.0 PT 12.8 INR 0.9 APTT 28.6 Sodium 141 140 Potassium 4.1 4.5 Chloride 105 105 Carbon Dioxide 29 28 Anion Gap 7 7 BUN 25 H 22 H Creatinine 0.70 0.70 Estim Creat Clear Calc 63 62 Estimated GFR > 60 > 60 Glucose 96 84 Lactic Acid 1.4 Calcium 8.5 8.5 Total Bilirubin 0.4 AST 30 ALT 9 Alkaline Phosphatase 166 H C-Reactive Protein 0.7 Total Protein 7.0 Albumin 3.9 Quality VTE Prophylaxis VTE prophylaxis: pharmacologic ordered (Lovenox 40 mg subQ daily.)
[2024-03-08] MEDS: ACETAMINOPHEN 325 MG TABLET 650 MG PO (17:06)
[2024-03-08] MEDS: oxyCODONE HCL (*CRX) 2.5 MG TAB IR PO (18:32)
[2024-03-08 20:43] VITALS: BP 131/46; PULSE 60; RESP 17; TEMP 36.9; O2SAT 97
[2024-03-08] MEDS: ASPIRIN 81 MG ENTERIC TABLET PO (20:47)
[2024-03-08] MEDS: TAMSULOSIN HCL 0.4 MG CAPSULE PO (20:48)
[2024-03-08] MEDS: rOPINIRole HCL 1 MG TABLET 2 MG PO (20:50)
[2024-03-09 05:09] VITALS: BP 145/52; PULSE 71; RESP 17; TEMP 36.9; O2SAT 95
[2024-03-09 05:38] LABS: Basophils Percent Auto 0.6 % (0.2-1.2); Eosinophils Absolute Auto 0.2 K/mm3 (0-0.3); Eosinophils Percent Auto 3.9 % (0-4.4); Hematocrit 34.3 % (42.0-52.0); Hemoglobin 11.3 g/dL (14.0-18.0); Immature Granulocyte Absolute 0.01 K/mm3 (0.00-0.031); Immature Granulocyte Percent A 0.2 % (0-0.5); Lymphocytes Absolute Auto 0.97 K/mm3 (0.9-3.2); Lymphocytes Percent Auto 19.1 % (18.3-44.2); Mean Corpuscular HGB Conc 32.9 g/dl (32-36); Mean Corpuscular Hemoglobin 32.9 pg (26-34); Mean Platelet Volume 10.3 fl (7.4-10.4); Monocytes Absolute Auto 0.5 K/mm3 (0.1-0.6); Monocytes Percent Auto 10.7 % (2.6-8.5); Neutrophils Absolute Auto 3.3 K/mm3 (1.3-6.7); Neutrophils Percent Auto 65.5 % (45.5-73.1); Platelet Count Result 149 k/mm3 (150-375); Red Blood Count 3.43 M/mm3 (4.6-6.20); Red Cell Distribution Width 13.1 % (11.5-14.5); White Blood Count 5.1 K/mm3 (4.5-10.0)
[2024-03-09 05:52] LABS: Alanine Aminotransferase 8 U/L (6-50); Albumin Level 3.3 g/dL (3.5-5.1); Alkaline Phosphatase 125 U/L (38-126); Anion Gap 7 mmol/L (4-12); Aspartate Amino Transferase 19 U/L (17-59); Bilirubin,Total 0.6 mg/dL (0.2-1.3); Blood Urea Nitrogen 19 mg/dL (9-20); Calcium 8.4 mg/dL (8.4-10.2); Carbon Dioxide 26 mmol/L (22-30); Chloride 105 mmol/L (98-107); Estimated CRCL calculation 62 ml/min; Estimated Glomerular Filt Rate > 60; Glucose 88 mg/dL (65-110); Magnesium 2.1 mg/dL (1.6-2.3); Potassium 3.8 mmol/L (3.4-5.0); Sodium 138 mmol/L (137-145)
[2024-03-09 06:00] LABS: Vancomycin Trough 13.6 ug/mL (10.0-20.0)
[2024-03-09] MEDS: LEVOTHYROXINE SODIUM 75 MCG TABLET PO (07:00)
[2024-03-09] MEDS: BUMETANIDE 1 MG TABLET PO (08:50)
[2024-03-09] MEDS: polyethylene glycoL 3350 17 GM POWD.PACK PO (08:50)
[2024-03-09] MEDS: predniSONE 2.5 MG TABLET PO ×2 (08:50→17:55)
[2024-03-09] MEDS: FINASTERIDE 5 MG TABLET PO (08:50)
[2024-03-09] MEDS: carBAMazepine 200 MG TABLET PO ×2 (08:50→19:59)
[2024-03-09] MEDS: VANCOMYCIN 1,750 MG/NS 500 ML 1,750 MG/500 ML BAG 250 MG IVPB (08:51)
[2024-03-09] MEDS: HYDROXYCHLOROQUINE SULFATE 200 MG TABLET 400 MG PO (08:51)
[2024-03-09] MEDS: FAMOTIDINE 20 MG TABLET PO ×2 (08:51→19:58)
[2024-03-09] MEDS: CARBIDOPA/LEVODOPA 25/100 MG TABLET 2 TABLET PO ×3 (08:53→18:07)
[2024-03-09] MEDS: rOPINIRole HCL 1 MG TABLET PO ×2 (08:54→14:54)
[2024-03-09] MEDS: PANTOPRAZOLE 40 MG TABLET PO ×2 (09:02→19:58)
[2024-03-09] MEDS: ENOXAPARIN 40 MG/0.4 ML SYRINGE SUB-Q (09:02)
[2024-03-09] MEDS: GABAPENTIN 300 MG CAPSULE PO ×4 (09:03→19:58)
[2024-03-09 09:05] VITALS: O2SAT 95
[2024-03-09] MEDS: UMECLIDINIUM BROMIDE 62.5 MCG ELLIPTA 1 PUFF INHALATION (09:05)
--- NOTE | 2024-03-09 13:50 | PM.IMPN ---
Progress Note: A&P Assessment and Plan (1) Finger osteomyelitis, left: Code(s): M86.9 - Osteomyelitis, unspecified Status: Acute (2) Septic arthritis of interphalangeal joint of finger: Code(s): M00.9 - Pyogenic arthritis, unspecified Status: Acute (3) Dementia due to Parkinson's disease: Qualifiers: Dementia severity: mild Dementia behavioral or psychological symptom: without behavioral, psychotic, or mood disturbance or anxiety Qualified Code(s): G20.A1 - Parkinson's disease without dyskinesia, without mention of fluctuations; F02.A0 - Dementia in other diseases classified elsewhere, mild, without behavioral disturbance, psychotic disturbance, mood disturbance, and anxiety Code(s): G20.A1 - Parkinson's disease without dyskinesia, without mention of fluctuations; F02.80 - Dementia in other diseases classified elsewhere, unspecified severity, without behavioral disturbance, psychotic disturbance, mood disturbance, and anxiety Status: Acute (4) BPH (benign prostatic hyperplasia): Qualifiers: Lower urinary tract symptom presence: symptoms present Lower urinary tract symptom detail: urinary frequency Qualified Code(s): N40.1 - Benign prostatic hyperplasia with lower urinary tract symptoms; R35.0 - Frequency of micturition Code(s): N40.0 - Benign prostatic hyperplasia without lower urinary tract symptoms Status: Inactive (5) Urinary incontinence due to benign prostatic hyperplasia: Code(s): N40.1 - Benign prostatic hyperplasia with lower urinary tract symptoms; N39.498 - Other specified urinary incontinence Status: Acute Plan Assessment and plan osteomyelitis and septic arthritis of the left distal 3rd phalanx of the 1st PIP joint MRI reviewed Patient noted outpatient culture was positive for MRSA continue Vancomycin Awaiting plastic surgery eval Parkinson's disease continue home meds possible overactive bladder Was on Oxybutynin discussed with daughter who agreed to restarting Myrbetriq Restarted Myrbetriq BPH continue home meds DVT prophylaxis on lovenox Subjective Date/time seen: 03/09/24 13:50 Interval history: Comfortable at bedside Left third digit osteomyelitis and septic arthritis awaiting Plastic surgery eval Review of Systems Review of Systems: 12 systems were reviewed with pertinent positives and negatives per HPI. Except as documented in the HPI, all other systems were reviewed and are negative. Exam Narrative: Weight 81.4 kg BMI 31.8 Const: Other: No acute distress, appears stated age, well-developed well-nourished HENMT: Other: Head is normocephalic atraumatic, mucous membranes are moist, no oral pharyngeal erythema, dentures in place Eyes: Other: Pupils are equal and reactive, patient has dysconjugate gaze of the right eye which is worse when the patient removed his eyeglasses. No conjunctival pallor, no scleral icterus Neck: Other: No JVD, no lymphadenopathy, nontender Resp: Other: Initially some coarse breath sounds were noted in the right upper lobe which clear with cough, no increased work of breathing, no tachypnea Cardio: Other: Mild bradycardia, 2+ bilateral radial pedal pulses, no peripheral edema, no murmur GI: Other: Soft, nontender, positive bowel sounds : Other: Incontinent of urine Skin: Other: No pallor, non jaundice, erythema the 3rd distal phalanx of the left hand Neuro: Other: Alert orient x3, speech is clear but slow, no obvious facial asymmetry, no gross motor deficits noted during the course of conversation Extrem: Other: Erythema and edema of the distal left phalanx at the 1st interphalangeal joint with small ulceration of the dorsal surface, erythema is mostly on the dorsal surface and extends laterally but does not extend to palmar surface, cap refill is 2-3 seconds, patient has marked decreased range of motion of the joint due to discomfort. He has are joint deformities consistent with his history of rheumatoid arthritis Psych: Other: Appropriate mood and affect, pleasant and cooperative, fair judgment and insight Objective Data Vital Signs Vital Signs: Vital Signs - 24 hr 03/08/24 14:00 03/08/24 20:43 03/09/24 05:09 Temperature 99.1 F 98.4 F 98.4 F Pulse Rate 58 L 60 71 Respiratory Rate 18 17 17 Blood Pressure 108/52 L 131/46 L 145/52 H Pulse Oximetry 96 97 95 Oxygen Delivery 03/09/24 09:05 03/09/24 08:00 Temperature Pulse Rate Respiratory Rate Blood Pressure Pulse Oximetry 95 Oxygen Delivery Room Air Room Air Intake/Output Intake/Output: Intake & Output 03/06/24 03/07/24 03/08/24 03/09/24 23:59 23:59 23:59 23:59 Intake Total 340 2690 240 Output Total 1150 1200 Balance 340 1540 -960 Meds/Results Medications: Active Medications Generic Name Dose Route Start Last Admin Trade Name Freq PRN Reason Stop Dose Admin Acetaminophen 650 mg 03/08/24 18:00 03/08/24 17:06 Acetaminophen 325 Mg Tablet PO 650 mg QPM CHRISTINE Administration Acetaminophen 1,000 mg 03/07/24 20:01 Acetaminophen 500 Mg Tablet PO TID PRN pain 1-3 or fever Albuterol 2 puff 03/07/24 20:01 Albuterol Sulfate (*Sp) Aerosol 1 Puff INHALATION Q4HRT PRN shortness of breath or wheezing Aspirin 81 mg 03/07/24 21:00 03/08/24 20:47 Aspirin 81 Mg Enteric Tablet PO 81 mg QHS CHRISTINE Administration Bumetanide 1 mg 03/08/24 09:00 03/09/24 08:50 Bumetanide 1 Mg Tablet PO 1 mg DAILY [facility]INE Administration Carbamazepine 200 mg 03/07/24 21:00 03/09/24 08:50 Carbamazepine 200 Mg Tablet PO 200 mg Q12H CHRISTINE Administration Carbidopa/Levodopa 2 tablet 03/08/24 08:30 03/09/24 13:21 Carbidopa/Levodopa 25/100 Mg Tablet PO 2 tablet DAILY@0830,1230,1830 [facility]STINE Administration Donepezil HCl 5 mg 03/07/24 21:00 03/08/24 20:48 Donepezil Hcl 5 Mg Tablet PO 03/10/24 21:01 Not Given HS CHRISTINE Donepezil HCl 10 mg 03/11/24 21:00 Donepezil Hcl 10 Mg Tablet PO HS [facility]RISTINE Enoxaparin Sodium 40 mg 03/08/24 09:00 03/09/24 09:02 Enoxaparin 40 Mg/0.4 Ml Syringe SUB-Q 40 mg DAILY [facility]STINE Administration Famotidine 20 mg 03/08/24 09:00 03/09/24 08:51 Famotidine 20 Mg Tablet PO 20 mg Q12HR CH[facility]STINE Administration Finasteride 5 mg 03/08/24 09:00 03/09/24 08:50 Finasteride 5 Mg Tablet PO 5 mg DAILY [facility]STINE Administration Gabapentin 300 mg 03/07/24 21:00 03/09/24 13:21 Gabapentin 300 Mg Capsule PO 300 mg QID CHRISTINE Administration Hydroxychloroquine Sulfate 400 mg 03/08/24 09:00 03/09/24 08:51 Hydroxychloroquine Sulfate 200 Mg Tablet PO 400 mg DAILY [facility]STINE Administration Vancomycin HCl 1,750 mg in 500 mls @ 250 mls/hr 03/09/24 08:00 03/09/24 08:51 Vancomycin 1,750 Mg/Ns 500 Ml IVPB 250 mls/hr Q18H [facility]STINE Administration Ibuprofen 600 mg 03/07/24 20:01 Ibuprofen 600 Mg Tablet PO TID PRN pain 4-6 Levothyroxine Sodium 75 mcg 03/08/24 06:30 03/09/24 07:00 Levothyroxine Sodium 75 Mcg Tablet PO 75 mcg DAILY@0630 CHRISTINE Administration Melatonin 10 mg 03/08/24 04:57 Melatonin 5 Mg Tablet PO HS PRN difficulty sleeping Mirabegron 25 mg 03/10/24 09:00 Mirabegron 25 Mg Er Tablet PO DAILY [facility]RISTINE Nitroglycerin 0.4 mg 03/07/24 20:01 Nitroglycerin Sl 0.4 Mg Tablet SUBLINGUAL PRN PRN Chest Pain Oxycodone HCl 2.5 mg 03/07/24 20:01 03/08/24 18:32 Oxycodone Hcl (*Crx) 2.5 Mg Tab Ir PO 2.5 mg Q8H PRN Administration pain 7-10 Pantoprazole Sodium 40 mg 03/08/24 09:00 03/09/24 09:02 Pantoprazole 40 Mg Tablet PO 40 mg Q12HR CHRISTINE Administration Polyethylene Glycol 17 gm 03/08/24 09:00 03/09/24 08:50 Polyethylene Glycol 3350 17 Gm Powd.Pack PO 17 gm DAILY [facility] Administration Prednisone 2.5 mg 03/08/24 09:00 03/09/24 08:50 Prednisone 2.5 Mg Tablet PO 2.5 mg BID [facility]RISTINE Administration Ropinirole HCl 1 mg 03/08/24 08:30 03/09/24 08:54 Ropinirole Hcl 1 Mg Tablet PO 1 mg DAILY@0830,1530 CH[facility]STINE Administration Ropinirole HCl 2 mg 03/07/24 22:00 03/08/24 20:50 Ropinirole Hcl 1 Mg Tablet PO 2 mg 2200 CHRISTINE Administration Tamsulosin HCl 0.4 mg 03/07/24 21:00 03/08/24 20:48 Tamsulosin Hcl 0.4 Mg Capsule PO 0.4 mg HS CHRISTINE Administration Trazodone HCl 25 mg 03/09/24 21:00 Trazodone Hcl 25 Mg Tablet PO HS [facility] Umeclidinium [place] 1 puff 03/08/24 08:00 03/09/24 09:05 Umeclidinium [place] 62.5 Mcg Ellipta INHALATION 1 puff DAILYRT [facility] Administration Labs Labs: Laboratory Results - last 24 hr 03/09/24 05:25 WBC 5.1 RBC 3.43 L Hgb 11.3 L Hct 34.3 L MCV 100.0 MCH 32.9 MCHC 32.9 RDW 13.1 Plt Count 149 L MPV 10.3 Immature Gran % (Auto) 0.2 Neut % (Auto) 65.5 Lymph % (Auto) 19.1 [place] % (Auto) 10.7 H Eos % (Auto) 3.9 Baso % (Auto) 0.6 Lymph # (Auto) 0.97 [place] # (Auto) 0.5 Eos # (Auto) 0.2 Baso # (Auto) 0.0 Abs Immat Gran (auto) 0.01 Absolute Neuts (auto) 3.3 Absolute Nucleated RBC 0.000 Nucleated RBC % 0.0 Sodium 138 Potassium 3.8 Chloride 105 Carbon Dioxide 26 Anion Gap 7 BUN 19 Creatinine 0.70 Estim Creat Clear Calc 62 Estimated GFR > 60 Glucose 88 Calcium 8.4 Magnesium 2.1 Total Bilirubin 0.6 AST 19 ALT 8 Alkaline Phosphatase 125 Total Protein 6.0 L Albumin 3.3 L Vancomycin Trough 13.6 Quality VTE Prophylaxis VTE prophylaxis: pharmacologic ordered (Lovenox 40 mg subQ daily.)
[2024-03-09 14:00] VITALS: BP 110/58; PULSE 58; RESP 18; TEMP 36.9; O2SAT 94
[2024-03-09] MEDS: MIRABEGRON 25 MG ER TABLET PO (14:54)
[2024-03-09] MEDS: ACETAMINOPHEN 325 MG TABLET 650 MG PO (18:07)
[2024-03-09] MEDS: TAMSULOSIN HCL 0.4 MG CAPSULE PO (19:57)
[2024-03-09] MEDS: traZODone HCL 25 MG TABLET PO (19:57)
[2024-03-09] MEDS: ASPIRIN 81 MG ENTERIC TABLET PO (19:58)
[2024-03-09] MEDS: IBUPROFEN 600 MG TABLET PO (20:51)
[2024-03-09] MEDS: rOPINIRole HCL 1 MG TABLET 2 MG PO (20:56)
[2024-03-09 21:55] VITALS: BP 148/59; PULSE 55; RESP 18; TEMP 36.8; O2SAT 55
[2024-03-10] MEDS: VANCOMYCIN 1,750 MG/NS 500 ML 1,750 MG/500 ML BAG 250 MG IVPB ×2 (02:23→21:01)
[2024-03-10 05:23] VITALS: BP 154/68; PULSE 66; RESP 20; TEMP 36.7; O2SAT 98
[2024-03-10] MEDS: LEVOTHYROXINE SODIUM 75 MCG TABLET PO (05:35)
[2024-03-10 07:05] VITALS: PULSE 58; RESP 18; O2SAT 97
[2024-03-10] MEDS: UMECLIDINIUM BROMIDE 62.5 MCG ELLIPTA 1 PUFF INHALATION (07:06)
[2024-03-10 07:19] LABS: Basophils Percent Auto 0.8 % (0.2-1.2); Eosinophils Absolute Auto 0.2 K/mm3 (0-0.3); Hematocrit 36.1 % (42.0-52.0); Lymphocytes Absolute Auto 0.89 K/mm3 (0.9-3.2); Lymphocytes Percent Auto 22.3 % (18.3-44.2); Mean Corpuscular HGB Conc 33.2 g/dl (32-36); Mean Corpuscular Hemoglobin 33.2 pg (26-34); Mean Platelet Volume 10.4 fl (7.4-10.4); Monocytes Absolute Auto 0.5 K/mm3 (0.1-0.6); Monocytes Percent Auto 12.3 % (2.6-8.5); Neutrophils Absolute Auto 2.4 K/mm3 (1.3-6.7); Neutrophils Percent Auto 59.6 % (45.5-73.1); Platelet Count Result 150 k/mm3 (150-375); Red Blood Count 3.61 M/mm3 (4.6-6.20)
[2024-03-10 07:26] LABS: Alanine Aminotransferase 10 U/L (6-50); Albumin Level 3.4 g/dL (3.5-5.1); Alkaline Phosphatase 124 U/L (38-126); Anion Gap 7 mmol/L (4-12); Aspartate Amino Transferase 18 U/L (17-59); Bilirubin,Total 0.5 mg/dL (0.2-1.3); Blood Urea Nitrogen 21 mg/dL (9-20); Calcium 8.3 mg/dL (8.4-10.2); Carbon Dioxide 26 mmol/L (22-30); Chloride 106 mmol/L (98-107); Estimated CRCL calculation 54 ml/min; Estimated Glomerular Filt Rate > 60; Glucose 96 mg/dL (65-110); Magnesium 2.2 mg/dL (1.6-2.3); Potassium 3.9 mmol/L (3.4-5.0); Sodium 139 mmol/L (137-145)
[2024-03-10] MEDS: CARBIDOPA/LEVODOPA 25/100 MG TABLET 2 TABLET PO ×3 (08:56→17:43)
[2024-03-10] MEDS: BUMETANIDE 1 MG TABLET PO (08:57)
[2024-03-10] MEDS: carBAMazepine 200 MG TABLET PO ×2 (08:57→21:01)
[2024-03-10] MEDS: rOPINIRole HCL 1 MG TABLET PO ×2 (08:57→14:45)
[2024-03-10] MEDS: FAMOTIDINE 20 MG TABLET PO ×2 (08:58→21:01)
[2024-03-10] MEDS: HYDROXYCHLOROQUINE SULFATE 200 MG TABLET 400 MG PO (08:58)
[2024-03-10] MEDS: FINASTERIDE 5 MG TABLET PO (08:58)
[2024-03-10] MEDS: GABAPENTIN 300 MG CAPSULE PO ×4 (08:58→21:01)
[2024-03-10] MEDS: ENOXAPARIN 40 MG/0.4 ML SYRINGE SUB-Q (08:58)
[2024-03-10] MEDS: MIRABEGRON 25 MG ER TABLET PO (08:59)
[2024-03-10] MEDS: polyethylene glycoL 3350 17 GM POWD.PACK PO (08:59)
[2024-03-10] MEDS: predniSONE 2.5 MG TABLET PO ×2 (08:59→17:02)
[2024-03-10] MEDS: PANTOPRAZOLE 40 MG TABLET PO ×2 (08:59→21:01)
[2024-03-10] MEDS: IBUPROFEN 600 MG TABLET PO (09:13)
[2024-03-10 14:00] VITALS: BP 110/53; PULSE 52; RESP 20; TEMP 36.6; O2SAT 95
--- NOTE | 2024-03-10 14:38 | PM.IMPN ---
Progress Note: A&P Assessment and Plan (1) Finger osteomyelitis, left: Code(s): M86.9 - Osteomyelitis, unspecified Status: Acute (2) Septic arthritis of interphalangeal joint of finger: Code(s): M00.9 - Pyogenic arthritis, unspecified Status: Acute (3) Dementia due to Parkinson's disease: Qualifiers: Dementia severity: mild Dementia behavioral or psychological symptom: without behavioral, psychotic, or mood disturbance or anxiety Qualified Code(s): G20.A1 - Parkinson's disease without dyskinesia, without mention of fluctuations; F02.A0 - Dementia in other diseases classified elsewhere, mild, without behavioral disturbance, psychotic disturbance, mood disturbance, and anxiety Code(s): G20.A1 - Parkinson's disease without dyskinesia, without mention of fluctuations; F02.80 - Dementia in other diseases classified elsewhere, unspecified severity, without behavioral disturbance, psychotic disturbance, mood disturbance, and anxiety Status: Acute (4) BPH (benign prostatic hyperplasia): Qualifiers: Lower urinary tract symptom presence: symptoms present Lower urinary tract symptom detail: urinary frequency Qualified Code(s): N40.1 - Benign prostatic hyperplasia with lower urinary tract symptoms; R35.0 - Frequency of micturition Code(s): N40.0 - Benign prostatic hyperplasia without lower urinary tract symptoms Status: Inactive (5) Urinary incontinence due to benign prostatic hyperplasia: Code(s): N40.1 - Benign prostatic hyperplasia with lower urinary tract symptoms; N39.498 - Other specified urinary incontinence Status: Acute Plan Assessment and plan osteomyelitis and septic arthritis of the left distal 3rd phalanx of the 1st PIP joint MRI reviewed Patient noted outpatient culture was positive for MRSA continue Vancomycin Awaiting plastic surgery eval Parkinson's disease continue home meds possible overactive bladder Was on Oxybutynin discussed with daughter who agreed to restarting Myrbetriq Restarted Myrbetriq BPH continue home meds DVT prophylaxis on lovenox Subjective Date/time seen: 03/10/24 14:38 Interval history: Comfortable at bedside still awaiting Plastic surgery eval called Dr Green's office, if not seen today will initiate transfer tomorrow Review of Systems Review of Systems: 12 systems were reviewed with pertinent positives and negatives per HPI. Except as documented in the HPI, all other systems were reviewed and are negative. Exam Narrative: Weight 81.4 kg BMI 31.8 Const: Other: No acute distress, appears stated age, well-developed well-nourished HENMT: Other: Head is normocephalic atraumatic, mucous membranes are moist, no oral pharyngeal erythema, dentures in place Eyes: Other: Pupils are equal and reactive, patient has dysconjugate gaze of the right eye which is worse when the patient removed his eyeglasses. No conjunctival pallor, no scleral icterus Neck: Other: No JVD, no lymphadenopathy, nontender Resp: Other: Initially some coarse breath sounds were noted in the right upper lobe which clear with cough, no increased work of breathing, no tachypnea Cardio: Other: Mild bradycardia, 2+ bilateral radial pedal pulses, no peripheral edema, no murmur GI: Other: Soft, nontender, positive bowel sounds : Other: Incontinent of urine Skin: Other: No pallor, non jaundice, erythema the 3rd distal phalanx of the left hand Neuro: Other: Alert orient x3, speech is clear but slow, no obvious facial asymmetry, no gross motor deficits noted during the course of conversation Extrem: Other: Erythema and edema of the distal left phalanx at the 1st interphalangeal joint with small ulceration of the dorsal surface, erythema is mostly on the dorsal surface and extends laterally but does not extend to palmar surface, cap refill is 2-3 seconds, patient has marked decreased range of motion of the joint due to discomfort. He has are joint deformities consistent with his history of rheumatoid arthritis Psych: Other: Appropriate mood and affect, pleasant and cooperative, fair judgment and insight Objective Data Vital Signs Vital Signs: Vital Signs - 24 hr 03/09/24 21:55 03/09/24 20:00 03/10/24 05:23 Temperature 98.2 F 98.0 F Pulse Rate 55 L 66 Respiratory Rate 18 20 Blood Pressure 148/59 H 154/68 H Pulse Oximetry 55 L 98 Oxygen Delivery Room Air 03/10/24 07:05 03/10/24 07:05 03/10/24 08:56 Temperature Pulse Rate 58 L 58 L Respiratory Rate 18 18 Blood Pressure Pulse Oximetry 97 Oxygen Delivery Room Air Room Air Intake/Output Intake/Output: Intake & Output 03/07/24 03/08/24 03/09/24 03/10/24 23:59 23:59 23:59 23:59 Intake Total 340 0570 980 700 Output Total 1150 1200 Balance 340 1540 -220 700 Meds/Results Medications: Active Medications Generic Name Dose Route Start Last Admin Trade Name Freq PRN Reason Stop Dose Admin Acetaminophen 650 mg 03/08/24 18:00 03/09/24 18:07 Acetaminophen 325 Mg Tablet PO 650 mg QPM CHRISTINE Administration Acetaminophen 1,000 mg 03/07/24 20:01 Acetaminophen 500 Mg Tablet PO TID PRN pain 1-3 or fever Albuterol 2 puff 03/07/24 20:01 Albuterol Sulfate (*Sp) Aerosol 1 Puff INHALATION Q4HRT PRN shortness of breath or wheezing Aspirin 81 mg 03/07/24 21:00 03/09/24 19:58 Aspirin 81 Mg Enteric Tablet PO 81 mg QHS CHRISTINE Administration Bumetanide 1 mg 03/08/24 09:00 03/10/24 08:57 Bumetanide 1 Mg Tablet PO 1 mg DAILY CHRISTINE Administration Carbamazepine 200 mg 03/07/24 21:00 03/10/24 08:57 Carbamazepine 200 Mg Tablet PO 200 mg Q12H CHRISTINE Administration Carbidopa/Levodopa 2 tablet 03/08/24 08:30 03/10/24 12:25 Carbidopa/Levodopa 25/100 Mg Tablet PO 2 tablet DAILY@0830,1230,1830 CHRISTINE Administration Donepezil HCl 5 mg 03/07/24 21:00 03/10/24 02:23 Donepezil Hcl 5 Mg Tablet PO 03/10/24 21:01 Not Given HS CHRISTINE Donepezil HCl 10 mg 03/11/24 21:00 Donepezil Hcl 10 Mg Tablet PO HS CHRISTINE Enoxaparin Sodium 40 mg 03/08/24 09:00 03/10/24 08:58 Enoxaparin 40 Mg/0.4 Ml Syringe SUB-Q 40 mg DAILY CHRISTINE Administration Famotidine 20 mg 03/08/24 09:00 03/10/24 08:58 Famotidine 20 Mg Tablet PO 20 mg Q12HR CHRISTINE Administration Finasteride 5 mg 03/08/24 09:00 03/10/24 08:58 Finasteride 5 Mg Tablet PO 5 mg DAILY CHRISTINE Administration Gabapentin 300 mg 03/07/24 21:00 03/10/24 12:25 Gabapentin 300 Mg Capsule PO 300 mg QID CHRISTINE Administration Hydroxychloroquine Sulfate 400 mg 03/08/24 09:00 03/10/24 08:58 Hydroxychloroquine Sulfate 200 Mg Tablet PO 400 mg DAILY CHRISTINE Administration Vancomycin HCl 1,750 mg in 500 mls @ 250 mls/hr 03/09/24 08:00 03/10/24 02:23 Vancomycin 1,750 Mg/Ns 500 Ml IVPB 250 mls/hr Q18H CHRISTINE Administration Ibuprofen 600 mg 03/07/24 20:01 03/10/24 09:13 Ibuprofen 600 Mg Tablet PO 600 mg TID PRN Administration pain 4-6 Levothyroxine Sodium 75 mcg 03/08/24 06:30 03/10/24 05:35 Levothyroxine Sodium 75 Mcg Tablet PO 75 mcg DAILY@0630 CHRISTINE Administration Melatonin 10 mg 03/08/24 04:57 Melatonin 5 Mg Tablet PO HS PRN difficulty sleeping Mirabegron 25 mg 03/09/24 13:55 03/10/24 08:59 Mirabegron 25 Mg Er Tablet PO 25 mg DAILY CHRISTINE Administration Nitroglycerin 0.4 mg 03/07/24 20:01 Nitroglycerin Sl 0.4 Mg Tablet SUBLINGUAL PRN PRN Chest Pain Oxycodone HCl 2.5 mg 03/07/24 20:01 03/08/24 18:32 Oxycodone Hcl (*Crx) 2.5 Mg Tab Ir PO 2.5 mg Q8H PRN Administration pain 7-10 Pantoprazole Sodium 40 mg 03/08/24 09:00 03/10/24 08:59 Pantoprazole 40 Mg Tablet PO 40 mg Q12HR CHRISTINE Administration Polyethylene Glycol 17 gm 03/08/24 09:00 03/10/24 08:59 Polyethylene Glycol 3350 17 Gm Powd.Pack PO 17 gm DAILY CHRISTINE Administration Prednisone 2.5 mg 03/08/24 09:00 03/10/24 08:59 Prednisone 2.5 Mg Tablet PO 2.5 mg BID CHRISTINE Administration Ropinirole HCl 1 mg 03/08/24 08:30 03/10/24 08:57 Ropinirole Hcl 1 Mg Tablet PO 1 mg DAILY@0830,1530 CHRISTINE Administration Ropinirole HCl 2 mg 03/07/24 22:00 03/09/24 20:56 Ropinirole Hcl 1 Mg Tablet PO 2 mg 2200 CHRISTINE Administration Tamsulosin HCl 0.4 mg 03/07/24 21:00 03/09/24 19:57 Tamsulosin Hcl 0.4 Mg Capsule PO 0.4 mg HS CHRISTINE Administration Trazodone HCl 25 mg 03/09/24 21:00 03/09/24 19:57 Trazodone Hcl 25 Mg Tablet PO 25 mg HS CHRISTINE Administration Umeclidinium [place] 1 puff 03/08/24 08:00 03/10/24 07:06 Umeclidinium [place] 62.5 Mcg Ellipta INHALATION 1 puff DAILYRT CHRISTINE Administration Labs Labs: Laboratory Results - last 24 hr 03/10/24 06:55 WBC 4.0 L RBC 3.61 L Hgb 12.0 L Hct 36.1 L MCV 100.0 MCH 33.2 MCHC 33.2 RDW 13.0 Plt Count 150 MPV 10.4 Immature Gran % (Auto) 0.0 Neut % (Auto) 59.6 Lymph % (Auto) 22.3 [place] % (Auto) 12.3 H Eos % (Auto) 5.0 H Baso % (Auto) 0.8 Lymph # (Auto) 0.89 L [place] # (Auto) 0.5 Eos # (Auto) 0.2 Baso # (Auto) 0.0 Abs Immat Gran (auto) 0.00 Absolute Neuts (auto) 2.4 Absolute Nucleated RBC 0.000 Nucleated RBC % 0.0 Sodium 139 Potassium 3.9 Chloride 106 Carbon Dioxide 26 Anion Gap 7 BUN 21 H Creatinine 0.80 Estim Creat Clear Calc 54 Estimated GFR > 60 Glucose 96 Calcium 8.3 L Magnesium 2.2 Total Bilirubin 0.5 AST 18 ALT 10 Alkaline Phosphatase 124 Total Protein 6.0 L Albumin 3.4 L Quality VTE Prophylaxis VTE prophylaxis: pharmacologic ordered (Lovenox 40 mg subQ daily.)
--- NOTE | 2024-03-10 15:29 | P.CONS_ITS ---
Assessment and Plan Assessment and plan (1) Septic arthritis of interphalangeal joint of finger: Code(s): M00.9 - Pyogenic arthritis, unspecified Status: Acute Assessment and Plan: 84yo male with left middle finger cellulitis and osteomyelitis as suspected complication of mucous cyst I&D I reviewed MRi images and report as well as previous xray images. I discussed my impression and Dx and that I do not find surgical intervention is indicated at this time. I discussed osteomyelitis and typical longer term abx courses to fully treat. Given patients history and symptoms this seems consistent that he improved on outpatient PO bactrim but once this stopped after 5 days of treatment then the lingering infection continued. I discussed possible washout or bone biopsy if not improving but continue to recommend consult with ID and possible picc line with outpatient abx infusions for 6 weeks or per protocol as determine by ID. Plan: 1) warm compresses or soaks BID 2) elevation 3) nsaids q6-8hours 4) ID consult 5) IV abx per ID HPI Data of Consult Date/Time: 03/10/24 15:29 Requesting Physician: Amy Bryant MD Primary Care Provider: Neyda Ba APRN Consult Narrative Narrative: Kellee Bearden is a 84 year old male previously seen in office and thought to have resolving left middle finger mrsa cellulitis as complicaiton of mucous cyst I&D recently admitted to hospital with recurring swelling and pustule formation on middle finger and MRI suggestive of osteomyelitis. review of hospitalist notes from admission reference plastics consult though I was not aware of patient's admission until today. I saw and examine patient at bedside with his daughter who notes that they've been told multiple, seemingly conflicting things including that patient would need a bone biopsy and posisble amputation. I was aware of patient presenting to ER ~2 days ago and my discussion with ER attending discussed referral to infectious disease specialist for long-term IV abx outpatient therapy to treat the suspected osteomyelitis. patient and daughter note that that pustule has resolved as well as swelling in last 2 days since admission and IV vanc has started. nsaids started today have also helped. [facility] Past Medical History Medical History (Updated 03/08/24 @ 05:31 by Melany Denney DO) Arthritis Barretts esophagus BPH (benign prostatic hyperplasia) Carpal tunnel syndrome on both sides CHF (congestive heart failure) Echo May 2020: Normal left ventricular systolic function EF 69%, moderate concentric left ventricular hypertrophy, mild left ventricular enlargement, paradoxical septal motion consistent with bundle branch block, diastolic dysfunction grade 1, technically difficult study Chronic obstructive pulmonary disease Mild emphysematous changes noted on CT scan Coronary artery disease 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 Dysphagia Gastroesophageal reflux disease Generalized osteoarthritis of multiple sites Hiatal hernia with gastroesophageal reflux disease and esophagitis Hypertension Hypothyroidism Mixed restrictive and obstructive lung disease Obstructive sleep apnea With sleep study in 2020 recommending BiPAP Parkinson disease Recurrent falls Rheumatoid arthritis Rheumatoid arthritis of unspecified site with involvement of other organs and systems RLS (restless legs syndrome) Surgical History Surgical History H/O eye surgery Left eye to correct double vision History of dental anglican Dental implants History of four vessel coronary artery bypass graft History of Osvaldo fundoplication History of tonsillectomy and adenoidectomy History of uvulopalatopharyngoplasty Hx of cholecystectomy Status post cataract extraction of both eyes with insertion of intraocular lens Status post open reduction with internal fixation of fracture Knee cap Family History Family History Father Acute myocardial infarction, Onset Age: 84 Family history of coronary artery disease, Onset Age: 84 Mother Carcinoma of colon, Onset Age: 64 Sibling Family history of coronary artery disease Carcinoma of colon Social History Social History (Updated 03/08/24 @ 05:12 by Melany Denney DO) Social History: The patient sold his house in moved in with his daughter after the patient's in 2019. He was 59 years prior to his 's . He ambulates with a walker and/or cane. He used to smoke 5 or 6 cigars a day but quit in 2014. He denies any alcohol use. 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 The patient and his raised 2 of her own children and also raise the patient's sister who was 30 years younger. They took custody of the patient's sister when she was 16 after his mother had . Code status: Full code (however he would not want to be on ventilator for long- term, have a tracheostomy or a feeding tube.) Healthcare power of patent prosecution attorney: Daughter Smoking packs per day: 1 Smoking cigarettes per day: 20.0 Years smoked: 25 Smoking pack-years: 25.00 Smoking status: Former smoker Tobacco type: cigarettes Smoking end date: 05/11/14 Alcohol intake: never Substance use: never Substance use type: does not use Do You Feel Safe in your Home?: Yes Lack of Transportation: No Lack of Food: Never True Current Housing: I Have Housing Concerned About Future Housing: No Difficulty Paying Gas/Electric Bills: No Difficulty Paying for Meds: No Currently Unemployed: No Education: Bachelor's Degree Difficulty w/ Childcare or Family Care: No Living arrangements: with family Additional living arrangements comments: WITH DAUGHTER Occupation/Education: retired Spiritual care concerns: No Meds Home Medications and Allergies Home Medications Medication Instructions Recorded Confirmed Type aspirin 81 mg tablet,delayed 81 mg PO QHS 03/23/19 03/07/24 History release (Aspir-Low) tamsulosin 0.4 mg capsule 0.4 mg PO HS 04/24/20 03/07/24 History gabapentin 300 mg capsule 300 mg PO QID 05/15/20 03/07/24 History carbamazepine 200 mg tablet 200 mg PO Q12H #60 tabs 09/14/20 03/07/24 Rx bumetanide 1 mg tablet 1 mg PO DAILY 12/17/20 03/07/24 History albuterol sulfate 90 mcg/actuation 1 - 2 puff inhalation Q4-6H PRN 04/14/22 03/07/24 Rx aerosol inhaler shortness of breath or wheezing #8.5 grams carbidopa ER 25 mg-levodopa 100 mg 2 tablet PO TID 05/16/22 03/07/24 History tablet,extended release ropinirole 1 mg tablet 3 mg PO QID Restless Leg(S) #30 05/20/22 03/07/24 Rx tabs nitroglycerin 0.4 mg sublingual 0.4 mg sublingual PRN PRN Chest 10/23/22 1 History tablet Pain hydroxychloroquine 200 mg tablet 400 mg PO DAILY #180 tabs 06/18/23 03/07/24 Rx (Plaquenil) pantoprazole 40 mg tablet,delayed 40 mg PO BID 3 months #180 tabs 07/10/23 03/07/24 Rx release famotidine 20 mg tablet 20 mg PO BID 3 months #180 tabs 08/10/23 03/07/24 Rx levothyroxine 75 mcg tablet 75 mcg PO DAILY #90 tabs 09/04/23 03/07/24 Rx oxybutynin chloride 5 mg 5 mg PO DAILY 01/18/24 03/07/24 History tablet,extended release 24 hr acetaminophen 325 mg capsule 650 mg PO QPM 02/01/24 03/07/24 History (Tylenol) finasteride 5 mg tablet 5 mg PO DAILY 02/01/24 03/07/24 History acetaminophen 500 mg tablet 1,000 mg PO TID PRN pain #30 tabs 02/22/24 03/07/24 Rx (Tylenol Extra Strength) ibuprofen 600 mg tablet 600 mg PO TID PRN pain #20 tabs 02/22/24 03/07/24 Rx oxycodone 5 mg tablet 2.5 mg PO Q8H PRN pain #10 tabs 02/22/24 03/07/24 Rx donepezil 10 mg tablet 5 mg PO DAILY 03/07/24 03/07/24 History melatonin 12 mg tablet 15 mg PO HS PRN difficulty sleeping 03/07/24 03/07/24 History polyethylene glycol 3350 17 gram 17 g PO DAILY 03/07/24 03/07/24 History oral powder packet (Miralax) prednisone 2.5 mg tablet 2.5 mg PO BID 03/07/24 03/07/24 History tiotropium bromide 18 mcg capsule 18 mcg inhalation DAILY 03/07/24 03/07/24 History with inhalation device (Spiriva with HandiHaler) Allergies Allergy/AdvReac Type Severity Reaction Status Date / Time abatacept AdvReac Flushing Verified 03/07/24 13:47 Vital Signs Vital Signs - 24 hr 03/09/24 21:55 03/09/24 20:00 03/10/24 05:23 Temperature 36.8 C 36.7 C Pulse Rate 55 L 66 Respiratory Rate 18 20 Blood Pressure 148/59 H 154/68 H Pulse Oximetry 55 L 98 Oxygen Delivery Room Air 03/10/24 07:05 03/10/24 07:05 03/10/24 08:56 Temperature Pulse Rate 58 L 58 L Respiratory Rate 18 18 Blood Pressure Pulse Oximetry 97 Oxygen Delivery Room Air Room Air Exam Narrative: Gen: left middle finger enlarged and indurated around dipj without fluctuance or drainig lesion. minimal tenderness. ROM: slightly limited from stiffness and note slight deviation of digit radially at dipjoint Vascular: Warm and well perfused Sensation: Intact to light touch Results Labs 03/10/24 06:55 03/10/24 06:55 Labs: Short CBC 03/10/24 Range/Units 06:55 WBC 4.0 L (4.5-10.0) K/mm3 Hgb 12.0 L (14.0-18.0) g/dL Hct 36.1 L (42.0-52.0) % Plt Count 150 (150-375) k/mm3 BMP 03/10/24 06:55 Sodium 139 Potassium 3.9 Chloride 106 Carbon Dioxide 26 BUN 21 H Creatinine 0.80 Glucose 96 Calcium 8.3 L Liver Function 03/10/24 Range/Units 06:55 Total Bilirubin 0.5 (0.2-1.3) mg/dL AST 18 (17-59) U/L ALT 10 (6-50) U/L Alkaline Phosphatase 124 (38-126) U/L Albumin 3.4 L (3.5-5.1) g/dL
[2024-03-10 15:40] VITALS: PULSE 67; RESP 18
[2024-03-10] MEDS: ALBUTEROL SULFATE (*SP) AEROSOL 1 PUFF 2 PUFF INHALATION ×2 (15:40→21:45)
[2024-03-10] MEDS: ACETAMINOPHEN 325 MG TABLET 650 MG PO (17:03)
[2024-03-10] MEDS: traZODone HCL 25 MG TABLET PO (21:00)
[2024-03-10] MEDS: TAMSULOSIN HCL 0.4 MG CAPSULE PO (21:01)
[2024-03-10] MEDS: ASPIRIN 81 MG ENTERIC TABLET PO (21:01)
[2024-03-10] MEDS: rOPINIRole HCL 1 MG TABLET 2 MG PO (21:04)
[2024-03-10 21:06] VITALS: BP 121/52; PULSE 54; RESP 18; TEMP 36.7; O2SAT 95
[2024-03-11] MEDS: LEVOTHYROXINE SODIUM 75 MCG TABLET PO (05:36)
[2024-03-11 05:41] VITALS: BP 126/54; PULSE 52; RESP 16; TEMP 36.8; O2SAT 96
[2024-03-11 06:42] LABS: Basophils Percent Auto 0.3 % (0.2-1.2); Eosinophils Absolute Auto 0.1 K/mm3 (0-0.3); Hematocrit 36.1 % (42.0-52.0); Immature Granulocyte Absolute 0.03 K/mm3 (0.00-0.031); Immature Granulocyte Percent A 0.4 % (0-0.5); Lymphocytes Absolute Auto 0.85 K/mm3 (0.9-3.2); Mean Corpuscular HGB Conc 33.2 g/dl (32-36); Mean Corpuscular Hemoglobin 33.4 pg (26-34); Mean Corpuscular Volume 100.6 fl (80-100); Mean Platelet Volume 10.4 fl (7.4-10.4); Monocytes Absolute Auto 0.6 K/mm3 (0.1-0.6); Monocytes Percent Auto 8.1 % (2.6-8.5); Neutrophils Absolute Auto 5.5 K/mm3 (1.3-6.7); Neutrophils Percent Auto 77.2 % (45.5-73.1); Platelet Count Result 152 k/mm3 (150-375); Red Blood Count 3.59 M/mm3 (4.6-6.20); Red Cell Distribution Width 13.2 % (11.5-14.5); White Blood Count 7.1 K/mm3 (4.5-10.0)
[2024-03-11 07:01] LABS: Alanine Aminotransferase 12 U/L (6-50); Albumin Level 3.6 g/dL (3.5-5.1); Alkaline Phosphatase 135 U/L (38-126); Anion Gap 7 mmol/L (4-12); Aspartate Amino Transferase 22 U/L (17-59); Bilirubin,Total 0.7 mg/dL (0.2-1.3); Blood Urea Nitrogen 17 mg/dL (9-20); Calcium 8.6 mg/dL (8.4-10.2); Carbon Dioxide 26 mmol/L (22-30); Chloride 104 mmol/L (98-107); Estimated CRCL calculation 54 ml/min; Estimated Glomerular Filt Rate > 60; Glucose 79 mg/dL (65-110); Magnesium 2.1 mg/dL (1.6-2.3); Potassium 3.8 mmol/L (3.4-5.0); Sodium 137 mmol/L (137-145)
[2024-03-11] MEDS: BUMETANIDE 1 MG TABLET PO (08:40)
[2024-03-11] MEDS: FINASTERIDE 5 MG TABLET PO (08:40)
[2024-03-11] MEDS: CARBIDOPA/LEVODOPA 25/100 MG TABLET 2 TABLET PO ×3 (08:40→18:45)
[2024-03-11] MEDS: IBUPROFEN 600 MG TABLET PO ×2 (08:40→16:55)
[2024-03-11] MEDS: MIRABEGRON 25 MG ER TABLET PO (08:40)
[2024-03-11] MEDS: PANTOPRAZOLE 40 MG TABLET PO ×2 (08:40→20:56)
[2024-03-11] MEDS: FAMOTIDINE 20 MG TABLET PO ×2 (08:40→20:55)
[2024-03-11] MEDS: GABAPENTIN 300 MG CAPSULE PO ×4 (08:40→20:56)
[2024-03-11] MEDS: rOPINIRole HCL 1 MG TABLET PO ×3 (08:40→20:55)
[2024-03-11] MEDS: carBAMazepine 200 MG TABLET PO ×2 (08:40→20:56)
[2024-03-11] MEDS: polyethylene glycoL 3350 17 GM POWD.PACK PO (08:41)
[2024-03-11] MEDS: HYDROXYCHLOROQUINE SULFATE 200 MG TABLET 400 MG PO (08:41)
[2024-03-11] MEDS: predniSONE 2.5 MG TABLET PO ×2 (08:55→16:54)
--- NOTE | 2024-03-11 09:40 | PCSTNOTE ---
Please refer to the Bedside Swallow Evaluation in the EMR. Please note, silent aspiration cannot be ruled out at bedside.
--- NOTE | 2024-03-11 09:46 | PCSTNOTE ---
Please refer to the Bedside Swallow Evaluation in the EMR. Please note, silent aspiration cannot be ruled out at bedside.
[2024-03-11] MEDS: ACETAMINOPHEN 500 MG TABLET 1000 MG PO (12:55)
--- NOTE | 2024-03-11 13:50 | PCRCNOTE ---
Window of time for administration has passed. See next scheduled administration.
[2024-03-11 14:00] VITALS: BP 124/58; PULSE 61; RESP 16; TEMP 36.7; O2SAT 95
[2024-03-11 14:11] LABS: Vancomycin Trough 21.3 ug/mL (10.0-20.0)
--- NOTE | 2024-03-11 14:33 | P.PNIM_ITS ---
Progress Note: A&P Assessment and Plan (1) Finger osteomyelitis, left: Code(s): M86.9 - Osteomyelitis, unspecified Status: Acute (2) Septic arthritis of interphalangeal joint of finger: Code(s): M00.9 - Pyogenic arthritis, unspecified Status: Acute (3) Dementia due to Parkinson's disease: Qualifiers: Dementia severity: mild Dementia behavioral or psychological symptom: without behavioral, psychotic, or mood disturbance or anxiety Qualified Code(s): G20.A1 - Parkinson's disease without dyskinesia, without mention of fluctuations; F02.A0 - Dementia in other diseases classified elsewhere, mild, without behavioral disturbance, psychotic disturbance, mood disturbance, and anxiety Code(s): G20.A1 - Parkinson's disease without dyskinesia, without mention of fluctuations; F02.80 - Dementia in other diseases classified elsewhere, unspecified severity, without behavioral disturbance, psychotic disturbance, mood disturbance, and anxiety Status: Acute (4) BPH (benign prostatic hyperplasia): Qualifiers: Lower urinary tract symptom presence: symptoms present Lower urinary tract symptom detail: urinary frequency Qualified Code(s): N40.1 - Benign prostatic hyperplasia with lower urinary tract symptoms; R35.0 - Frequency of micturition Code(s): N40.0 - Benign prostatic hyperplasia without lower urinary tract symptoms Status: Inactive (5) Urinary incontinence due to benign prostatic hyperplasia: Code(s): N40.1 - Benign prostatic hyperplasia with lower urinary tract symptoms; N39.498 - Other specified urinary incontinence Status: Acute Plan Assessment and plan osteomyelitis and septic arthritis of the left distal 3rd phalanx of the 1st PIP joint MRI reviewed Patient noted outpatient culture was positive for MRSA continue Vancomycin Plastic surgery eval recommended 6 weeks of Abx Awaiting home health setup for 6 weeks abx Parkinson's disease continue home meds possible overactive bladder Was on Oxybutynin discussed with daughter who agreed to restarting Myrbetriq Restarted Myrbetriq BPH continue home meds DVT prophylaxis on lovenox Subjective Date/time seen: 03/11/24 14:33 Interval history: Comfortable at bedside surgery evaluated and noted that patient can go on 6 weeks abx Awaiting home health setup for discharge Review of Systems Review of Systems: 12 systems were reviewed with pertinent positives and negatives per HPI. Except as documented in the HPI, all other systems were reviewed and are negative. Exam Narrative: Weight 81.4 kg BMI 31.8 Const: Other: No acute distress, appears stated age, well-developed well-nourished HENMT: Other: Head is normocephalic atraumatic, mucous membranes are moist, no oral pharyngeal erythema, dentures in place Eyes: Other: Pupils are equal and reactive, patient has dysconjugate gaze of the right eye which is worse when the patient removed his eyeglasses. No conjunctival pallor, no scleral icterus Neck: Other: No JVD, no lymphadenopathy, nontender Resp: Other: Initially some coarse breath sounds were noted in the right upper lobe which clear with cough, no increased work of breathing, no tachypnea Cardio: Other: Mild bradycardia, 2+ bilateral radial pedal pulses, no peripheral edema, no murmur GI: Other: Soft, nontender, positive bowel sounds : Other: Incontinent of urine Skin: Other: No pallor, non jaundice, erythema the 3rd distal phalanx of the left hand Neuro: Other: Alert orient x3, speech is clear but slow, no obvious facial asymmetry, no gross motor deficits noted during the course of conversation Extrem: Other: Erythema and edema of the distal left phalanx at the 1st interphalangeal joint with small ulceration of the dorsal surface, erythema is mostly on the dorsal surface and extends laterally but does not extend to palmar surface, cap refill is 2-3 seconds, patient has marked decreased range of motion of the joint due to discomfort. He has are joint deformities consistent with his history of rheumatoid arthritis Psych: Other: Appropriate mood and affect, pleasant and cooperative, fair judgment and insight Objective Data Vital Signs Vital Signs: Vital Signs - 24 hr 03/10/24 15:40 03/10/24 21:06 03/10/24 21:00 Temperature 98.1 F Pulse Rate 67 54 L Respiratory Rate 18 18 Blood Pressure 121/52 L Pulse Oximetry 95 Oxygen Delivery Room Air 03/11/24 05:41 03/11/24 14:00 Temperature 98.3 F 98.0 F Pulse Rate 52 L 61 Respiratory Rate 16 16 Blood Pressure 126/54 L 124/58 L Pulse Oximetry 96 95 Oxygen Delivery Intake/Output Intake/Output: Intake & Output 03/08/24 03/09/24 03/10/24 03/11/24 23:59 23:59 23:59 23:59 Intake Total 2690 980 1800 490 Output Total 1150 8002 046 3250 Balance 1540 -769 6450 -302 Meds/Results Medications: Active Medications Generic Name Dose Route Start Last Admin Trade Name Freq PRN Reason Stop Dose Admin Acetaminophen 650 mg 03/08/24 18:00 03/10/24 17:03 Acetaminophen 325 Mg Tablet PO 650 mg QPM CHRISTINE Administration Acetaminophen 1,000 mg 03/07/24 20:01 03/11/24 12:55 Acetaminophen 500 Mg Tablet PO 1,000 mg TID PRN Administration pain 1-3 or fever Albuterol 2 puff 03/07/24 20:01 03/10/24 21:45 Albuterol Sulfate (*Sp) Aerosol 1 Puff INHALATION 2 puff Q4HRT PRN Administration shortness of breath or wheezing Albuterol/Ipratropium 3 ml 03/10/24 15:33 Ipratropium 0.5 Mg/Albuterol Sulfate 2.5 Mg Ampul.Neb 3 Ml INHALATION Q4HRT PRN Shortness Of Breath Or Wheezing Aspirin 81 mg 03/07/24 21:00 03/10/24 21:01 Aspirin 81 Mg Enteric Tablet PO 81 mg QHS CHRISTINE Administration Bumetanide 1 mg 03/08/24 09:00 03/11/24 08:40 Bumetanide 1 Mg Tablet PO 1 mg DAILY CHRISTINE Administration Carbamazepine 200 mg 03/07/24 21:00 03/11/24 08:40 Carbamazepine 200 Mg Tablet PO 200 mg Q12H CHRISTINE Administration Carbidopa/Levodopa 2 tablet 03/08/24 08:30 03/11/24 12:56 Carbidopa/Levodopa 25/100 Mg Tablet PO 2 tablet DAILY@0830,1230,1830 CHRISTINE Administration Donepezil HCl 10 mg 03/11/24 21:00 Donepezil Hcl 10 Mg Tablet PO HS CHRISTINE Enoxaparin Sodium 40 mg 03/08/24 09:00 03/10/24 08:58 Enoxaparin 40 Mg/0.4 Ml Syringe SUB-Q 40 mg DAILY CHRISTINE Administration Famotidine 20 mg 03/08/24 09:00 03/11/24 08:40 Famotidine 20 Mg Tablet PO 20 mg Q12HR CHRISTINE Administration Finasteride 5 mg 03/08/24 09:00 11/01/24 08:40 Finasteride 5 Mg Tablet PO 5 mg DAILY CHRISTINE Administration Gabapentin 300 mg 03/07/24 21:00 03/11/24 12:55 Gabapentin 300 Mg Capsule PO 300 mg QID CHRISTINE Administration Hydroxychloroquine Sulfate 400 mg 03/08/24 09:00 03/11/24 08:41 Hydroxychloroquine Sulfate 200 Mg Tablet PO 400 mg DAILY CHRISTINE Administration Vancomycin HCl 1,750 mg in 500 mls @ 250 mls/hr 03/11/24 20:00 Vancomycin 1,750 Mg/Ns 500 Ml IVPB Q24H [facility] Ibuprofen 600 mg 03/07/24 20:01 03/11/24 08:40 Ibuprofen 600 Mg Tablet PO 600 mg TID PRN Administration pain 4-6 Levothyroxine Sodium 75 mcg 03/08/24 06:30 03/11/24 05:36 Levothyroxine Sodium 75 Mcg Tablet PO 75 mcg DAILY@0630 CHRISTINE Administration Melatonin 10 mg 03/08/24 04:57 Melatonin 5 Mg Tablet PO HS PRN difficulty sleeping Mirabegron 25 mg 03/09/24 13:55 03/11/24 08:40 Mirabegron 25 Mg Er Tablet PO 25 mg DAILY CHRISTINE Administration Nitroglycerin 0.4 mg 03/07/24 20:01 Nitroglycerin Sl 0.4 Mg Tablet SUBLINGUAL PRN PRN Chest Pain Oxycodone HCl 2.5 mg 03/07/24 20:01 03/08/24 18:32 Oxycodone Hcl (*Crx) 2.5 Mg Tab Ir PO 2.5 mg Q8H PRN Administration pain 7-10 Pantoprazole Sodium 40 mg 03/08/24 09:00 03/11/24 08:40 Pantoprazole 40 Mg Tablet PO 40 mg Q12HR CHRISTINE Administration Polyethylene Glycol 17 gm 03/08/24 09:00 03/11/24 08:41 Polyethylene Glycol 3350 17 Gm Powd.Pack PO 17 gm DAILY CHRISTINE Administration Prednisone 2.5 mg 03/08/24 09:00 03/11/24 08:55 Prednisone 2.5 Mg Tablet PO 2.5 mg BID CHRISTINE Administration Ropinirole HCl 1 mg 03/08/24 08:30 03/11/24 08:40 Ropinirole Hcl 1 Mg Tablet PO 1 mg DAILY@0830,1530 CHRISTINE Administration Ropinirole HCl 2 mg 03/07/24 22:00 03/10/24 21:04 Ropinirole Hcl 1 Mg Tablet PO 2 mg 2200 CHRISTINE Administration Tamsulosin HCl 0.4 mg 03/07/24 21:00 03/10/24 21:01 Tamsulosin Hcl 0.4 Mg Capsule PO 0.4 mg HS CHRISTINE Administration Trazodone HCl 25 mg 03/09/24 21:00 03/10/24 21:00 Trazodone Hcl 25 Mg Tablet PO 25 mg HS [facility] Administration Umeclidinium [place] 1 puff 03/08/24 08:00 03/11/24 13:50 Umeclidinium [place] 62.5 Mcg Ellipta INHALATION Not Given DAILYRT [facility] Radiology Results: ITS Impressions Chest X-Ray 03/10/24 16:06 IMPRESSION: 1. No acute cardiopulmonary disease. Labs Labs: Laboratory Results - last 24 hr 03/11/24 03/11/24 06:12 13:12 WBC 7.1 RBC 3.59 L Hgb 12.0 L Hct 36.1 L MCV 100.6 H MCH 33.4 MCHC 33.2 RDW 13.2 Plt Count 152 MPV 10.4 Immature Gran % (Auto) 0.4 Neut % (Auto) 77.2 H Lymph % (Auto) 12.0 L Taliaferro % (Auto) 8.1 Eos % (Auto) 2.0 Baso % (Auto) 0.3 Lymph # (Auto) 0.85 L [place]ferro # (Auto) 0.6 Eos # (Auto) 0.1 Baso # (Auto) 0.0 Abs Immat Gran (auto) 0.03 Absolute Neuts (auto) 5.5 Absolute Nucleated RBC 0.000 Nucleated RBC % 0.0 Sodium 137 Potassium 3.8 Chloride 104 Carbon Dioxide 26 Anion Gap 7 BUN 17 Creatinine 0.80 Estim Creat Clear Calc 54 Estimated GFR > 60 Glucose 79 Calcium 8.6 Magnesium 2.1 Total Bilirubin 0.7 AST 22 ALT 12 Alkaline Phosphatase 135 H Total Protein 7.0 Albumin 3.6 Vancomycin Trough 21.3 H Quality VTE Prophylaxis VTE prophylaxis: pharmacologic ordered (Lovenox 40 mg subQ daily.)
[2024-03-11] MEDS: ACETAMINOPHEN 325 MG TABLET 650 MG PO (18:44)
[2024-03-11 20:18] VITALS: BP 133/46; PULSE 56; RESP 16; TEMP 36.6; O2SAT 98
[2024-03-11] MEDS: traZODone HCL 25 MG TABLET PO (20:55)
[2024-03-11] MEDS: TAMSULOSIN HCL 0.4 MG CAPSULE PO (20:55)
[2024-03-11] MEDS: ASPIRIN 81 MG ENTERIC TABLET PO (20:55)
[2024-03-11] MEDS: MELATONIN 5 MG TABLET 10 MG PO (20:57)
[2024-03-11] MEDS: VANCOMYCIN 1,500 MG/NS 500 ML BAG 250 MG IVPB (21:02)
[2024-03-11] MEDS: WATER FOR IRRIGATION, STERILE 1,000 ML BOTTLE 1000 ML (21:06)
[2024-03-12] MEDS: rOPINIRole HCL 1 MG TABLET PO ×3 (04:09→16:10)
[2024-03-12] MEDS: LEVOTHYROXINE SODIUM 75 MCG TABLET PO (05:14)
[2024-03-12 06:00] VITALS: BP 133/59; PULSE 51; RESP 22; TEMP 36.8; O2SAT 99
[2024-03-12] MEDS: IBUPROFEN 600 MG TABLET PO ×2 (06:32→12:45)
[2024-03-12 08:01] LABS: Estimated CRCL calculation 54 ml/min; Estimated Glomerular Filt Rate > 60
[2024-03-12] MEDS: UMECLIDINIUM BROMIDE 62.5 MCG ELLIPTA 1 PUFF INHALATION (08:03)
[2024-03-12] MEDS: HYDROXYCHLOROQUINE SULFATE 200 MG TABLET 400 MG PO (08:19)
[2024-03-12] MEDS: CARBIDOPA/LEVODOPA 25/100 MG TABLET 2 TABLET PO ×3 (08:19→18:04)
[2024-03-12] MEDS: PANTOPRAZOLE 40 MG TABLET PO ×2 (08:19→20:13)
[2024-03-12] MEDS: MIRABEGRON 25 MG ER TABLET PO (08:19)
[2024-03-12] MEDS: GABAPENTIN 300 MG CAPSULE PO ×4 (08:19→20:12)
[2024-03-12] MEDS: FAMOTIDINE 20 MG TABLET PO ×2 (08:20→20:12)
[2024-03-12] MEDS: carBAMazepine 200 MG TABLET PO ×2 (08:20→20:12)
[2024-03-12] MEDS: BUMETANIDE 1 MG TABLET PO (08:20)
[2024-03-12] MEDS: FINASTERIDE 5 MG TABLET PO (08:20)
[2024-03-12] MEDS: predniSONE 2.5 MG TABLET PO ×2 (08:20→16:10)
[2024-03-12] MEDS: ACETAMINOPHEN 500 MG TABLET 1000 MG PO (08:21)
--- NOTE | 2024-03-12 12:35 | PM.IMPN ---
Progress Note: A&P Assessment and Plan (1) Finger osteomyelitis, left: Code(s): M86.9 - Osteomyelitis, unspecified Status: Acute (2) Septic arthritis of interphalangeal joint of finger: Code(s): M00.9 - Pyogenic arthritis, unspecified Status: Acute (3) Dementia due to Parkinson's disease: Qualifiers: Dementia behavioral or psychological symptom: without behavioral, psychotic, or mood disturbance or anxiety Dementia severity: mild Qualified Code(s): G20.A1 - Parkinson's disease without dyskinesia, without mention of fluctuations; F02.A0 - Dementia in other diseases classified elsewhere, mild, without behavioral disturbance, psychotic disturbance, mood disturbance, and anxiety Code(s): G20.A1 - Parkinson's disease without dyskinesia, without mention of fluctuations; F02.80 - Dementia in other diseases classified elsewhere, unspecified severity, without behavioral disturbance, psychotic disturbance, mood disturbance, and anxiety Status: Acute (4) BPH (benign prostatic hyperplasia): Qualifiers: Lower urinary tract symptom detail: urinary frequency Lower urinary tract symptom presence: symptoms present Qualified Code(s): N40.1 - Benign prostatic hyperplasia with lower urinary tract symptoms; R35.0 - Frequency of micturition Code(s): N40.0 - Benign prostatic hyperplasia without lower urinary tract symptoms Status: Inactive (5) Urinary incontinence due to benign prostatic hyperplasia: Code(s): N40.1 - Benign prostatic hyperplasia with lower urinary tract symptoms; N39.498 - Other specified urinary incontinence Status: Acute Plan 84-year-old male with past medical history of mild Parkinson's related dementia (recently diagnosed) BPH with urinary incontinence, COPD, CHF, coronary artery disease, obstructive sleep apnea and recent diagnosis in treatment of MRSA 3rd distal left middle finger. Patient had a myxoid cyst drained from his left 3rd finger extensor surface just proximal to the nail cuticle by rfid systems architect early in February. Few days later he developed and abscess in the area just lateral to where the cyst had been drained. The area had been I and D x2 without improvement. He was prescribed Bactrim and he was referred to Dr. Galvan. Prior to going to see Dr. Galvan she ended up in our ER on February 15. Culture obtained at time of I and D grew out MRSA with scant growth. He was given 1 dose of vancomycin and discharged with instructions to continue Bactrim. He followed up with Dr. Galvan (or Dr. Colmenares) who had ordered an MRI of the finger. Prior to the MRI being performed patient's finger became acutely more inflamed and painful. Initially they thought this could be due to him being off of his rheumatoid medications. It had some associated swelling and erythema. His daughter started to empirically soak his finger in Betadine. She reported that when she would pull his finger out of Betadine it had almost a purulence like material that would drain from it for a day or 2. She did contact Dr. Galvan office who recommended that they follow through with the MRI which they did which demonstrated evidence of osteomyelitis and septic arthritis. Given these imaging findings and the patient's increasing joint pain he came to the ER for evaluation and treatment. Patient was started on vancomycin in the ER. Patient has been afebrile and had normal white count. He has had decreased appetite over the last couple of weeks. He denies any nausea or vomiting. Despite his recent diagnosis of Parkinson's related dementia the patient is alert oriented x3. Although with his permission his daughter does provide a majority of the recent history. His daughter reports that the patient's oxybutynin was recently discontinued (about 5 days ago) due to risks of interactions with Aricept that was recently started. Since the patient's oxybutynin has been discontinued patient has had increased amount of urinary incontinence from his baseline. He denies any dysuria, hematuria or foul-smelling urine. His last bowel movement was yesterday and was normally formed. He reports that the pain in his finger is improved if he wears Coban dressing on it to provide some pressure. The pain is worse with any manipulation of the finger at all or with any movement. He is on Tylenol and gabapentin chronically for pain. But was recently started on oxycodone due to the pain in his finger which is helping somewhat. The patient recently received permission to drive again. However the 1st time he tried to drive again he started having double vision. 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 But over the last week he has noticed worsening and more frequent episodes of double vision. He denies any headaches or other acute neurologic symptoms. They did follow-up with the hardware test engineer this past week told him there was there was nothing acutely wrong. The hardware test engineer felt the patient's increased double vision was due to fatigue. The patient is having pain in his buttocks. He he had a fall at home on the and came in for evaluation and was found to have a coccygeal fracture. # osteomyelitis and septic arthritis of the left distal 3rd phalanx of the 1st PIP joint MRI reviewed Patient noted outpatient culture was positive for MRSA continue Vancomycin Plastic surgery eval recommended 6 weeks of Abx Awaiting home health setup for 6 weeks [address]x and will place PICC once set up # Parkinson's disease continue home meds # possible overactive bladder Was on Oxybutynin discussed with daughter who agreed to restarting Myrbetriq Restarted Myrbetriq # Restless leg syndrome:on ropinirole. not controlled. adjust dose as disucssed # BPH continue home meds # DVT prophylaxis on lovenox Subjective Date/time seen: 03/12/24 12:35 Interval history: left middle finger soreness has improved. No further drainage. Remains afebrile. Has restless legs syndrome for which he takes ropinirole Review of Systems Review of Systems: All systems reviewed & are unremarkable except as noted in HPI and below Objective Data Vital Signs Vital Signs: Vital Signs - 24 hr 03/11/24 14:00 03/11/24 20:18 03/11/24 20:00 Temperature 98.0 F 97.9 F Pulse Rate 61 56 L Respiratory Rate 16 16 Blood Pressure 124/58 L 133/46 L Pulse Oximetry 95 98 Oxygen Delivery Room Air 03/12/24 06:00 Temperature 98.2 F Pulse Rate 51 L Respiratory Rate 22 H Blood Pressure 133/59 L Pulse Oximetry 99 Oxygen Delivery Intake/Output Intake/Output: Intake & Output 03/09/24 03/10/24 03/11/24 03/12/24 23:59 23:59 23:59 23:59 Intake Total 980 8485 492 0748 Output Total 9650 893 5846 Balance -220 1550 -780 1170 Meds/Results Medications: Active Medications Generic Name Dose Route Start Last Admin Trade Name Freq PRN Reason Stop Dose Admin Acetaminophen 650 mg 03/08/24 18:00 03/11/24 18:44 Acetaminophen 325 Mg Tablet PO 650 mg QPM CHRISTINE Administration Acetaminophen 1,000 mg 03/07/24 20:01 03/12/24 08:21 Acetaminophen 500 Mg Tablet PO 1,000 mg TID PRN Administration pain 1-3 or fever Albuterol 2 puff 03/07/24 20:01 03/10/24 21:45 Albuterol Sulfate (*Sp) Aerosol 1 Puff INHALATION 2 puff Q4HRT PRN Administration shortness of breath or wheezing Albuterol/Ipratropium 3 ml 03/10/24 15:33 Ipratropium 0.5 Mg/Albuterol Sulfate 2.5 Mg Ampul.Neb 3 Ml INHALATION Q4HRT PRN Shortness Of Breath Or Wheezing Aspirin 81 mg 03/07/24 21:00 03/11/24 20:55 Aspirin 81 Mg Enteric Tablet PO 81 mg QHS CHRISTNIE Administration Bumetanide 1 mg 03/08/24 09:00 03/12/24 08:20 Bumetanide 1 Mg Tablet PO 1 mg DAILY CHRISTINE Administration Carbamazepine 200 mg 03/07/24 21:00 03/12/24 08:20 Carbamazepine 200 Mg Tablet PO 200 mg Q12H CHRISTINE Administration Carbidopa/Levodopa 2 tablet 03/08/24 08:30 03/12/24 08:19 Carbidopa/Levodopa 25/100 Mg Tablet PO 2 tablet DAILY@0830,1230,1830 CHRISTINE Administration Donepezil HCl 10 mg 03/11/24 21:00 03/11/24 20:57 Donepezil Hcl 10 Mg Tablet PO Not Given HS CHRISTINE Enoxaparin Sodium 40 mg 03/08/24 09:00 03/11/24 09:00 Enoxaparin 40 Mg/0.4 Ml Syringe SUB-Q Not Given DAILY CHRISTINE Famotidine 20 mg 03/08/24 09:00 03/12/24 08:20 Famotidine 20 Mg Tablet PO 20 mg Q12HR CHRISTINE Administration Finasteride 5 mg 03/08/24 09:00 03/12/24 08:20 Finasteride 5 Mg Tablet PO 5 mg DAILY CHRISTINE Administration Gabapentin 300 mg 03/07/24 21:00 03/12/24 08:19 Gabapentin 300 Mg Capsule PO 300 mg QID CHRISTINE Administration Hydroxychloroquine Sulfate 400 mg 03/08/24 09:00 03/12/24 08:19 Hydroxychloroquine Sulfate 200 Mg Tablet PO 400 mg DAILY CHRISTINE Administration Vancomycin HCl 1,500 mg in 500 mls @ 250 mls/hr 03/11/24 20:00 03/12/24 05:14 Vancomycin 1,500 Mg/Ns 500 Ml IVPB Infused Q24H CHRISTINE Infusion Ibuprofen 600 mg 03/07/24 20:01 03/12/24 06:32 Ibuprofen 600 Mg Tablet PO 600 mg TID PRN Administration pain 4-6 Levothyroxine Sodium 75 mcg 03/08/24 06:30 03/12/24 05:14 Levothyroxine Sodium 75 Mcg Tablet PO 75 mcg DAILY@0630 CHRISTINE Administration Melatonin 10 mg 03/08/24 04:57 03/11/24 20:57 Melatonin 5 Mg Tablet PO 10 mg HS PRN Administration difficulty sleeping Mirabegron 25 mg 03/09/24 13:55 03/12/24 08:19 Mirabegron 25 Mg Er Tablet PO 25 mg DAILY CHRISTINE Administration Nitroglycerin 0.4 mg 03/07/24 20:01 Nitroglycerin Sl 0.4 Mg Tablet SUBLINGUAL PRN PRN Chest Pain Oxycodone HCl 2.5 mg 03/07/24 20:01 03/08/24 18:32 Oxycodone Hcl (*Crx) 2.5 Mg Tab Ir PO 2.5 mg Q8H PRN Administration pain 7-10 Pantoprazole Sodium 40 mg 03/08/24 09:00 03/12/24 08:19 Pantoprazole 40 Mg Tablet PO 40 mg Q12HR CHRISTINE Administration Polyethylene Glycol 17 gm 03/08/24 09:00 03/11/24 08:41 Polyethylene Glycol 3350 17 Gm Powd.Pack PO 17 gm DAILY CHRISTINE Administration Prednisone 2.5 mg 03/08/24 09:00 03/12/24 08:20 Prednisone 2.5 Mg Tablet PO 2.5 mg BID CHRISTINE Administration Ropinirole HCl 1 mg 03/11/24 21:00 03/12/24 08:19 Ropinirole Hcl 1 Mg Tablet PO 1 mg Q6H CHRISTINE Administration Tamsulosin HCl 0.4 mg 03/07/24 21:00 03/11/24 20:55 Tamsulosin Hcl 0.4 Mg Capsule PO 0.4 mg HS CHRISTINE Administration Trazodone HCl 25 mg 03/09/24 21:00 03/11/24 20:55 Trazodone Hcl 25 Mg Tablet PO 25 mg HS CHRISTINE Administration Umeclidinium [place] 1 puff 03/08/24 08:00 03/12/24 08:03 Umeclidinium [place] 62.5 Mcg Ellipta INHALATION 1 puff DAILYRT CHRISTINE Administration Radiology Results: ITS Impressions Chest X-Ray 03/10/24 16:06 IMPRESSION: 1. No acute cardiopulmonary disease. Labs Labs: Laboratory Results - last 24 hr 03/11/24 03/12/24 13:12 06:52 Creatinine 0.80 Estim Creat Clear Calc 54 Estimated GFR > 60 Vancomycin Trough 21.3 H
[2024-03-12 14:00] VITALS: BP 112/51; PULSE 56; RESP 16; TEMP 36.6; O2SAT 95
[2024-03-12 15:22] LABS: Iron 109 ug/dL (49-181)
[2024-03-12 15:31] LABS: Percent Iron Saturation 39 % (20-50)
[2024-03-12] MEDS: ACETAMINOPHEN 325 MG TABLET 650 MG PO (18:04)
[2024-03-12] MEDS: TAMSULOSIN HCL 0.4 MG CAPSULE PO (20:12)
[2024-03-12] MEDS: ASPIRIN 81 MG ENTERIC TABLET PO (20:12)
[2024-03-12] MEDS: rOPINIRole HCL 1 MG TABLET 3 MG PO (20:12)
[2024-03-12] MEDS: MELATONIN 5 MG TABLET 10 MG PO (20:13)
[2024-03-12] MEDS: VANCOMYCIN 1,500 MG/NS 500 ML BAG 250 MG IVPB (20:17)
[2024-03-12 22:00] VITALS: BP 134/66; PULSE 47; RESP 18; TEMP 36.3; O2SAT 98
--- NOTE | 2024-03-13 01:29 | PC.NURSE ---
Daylight Savings Time For Daylight Savings Time Ending in the Fall - Clocks are moved back. For Daylight Savings Time Beginning in the Spring - Clocks are moved ahead. For [facility], the time of change occurs at 0200 hrs. Time is taken from the line server. This entry on the patient's chart recognizes the change in time reflected during documentation. Example: 2 entries for vital signs may be charted for 0200 hrs.
--- NOTE | 2024-03-13 01:37 | PC.NURSE ---
Daylight Savings Time For Daylight Savings Time Ending in the Fall - Clocks are moved back. For Daylight Savings Time Beginning in the Spring - Clocks are moved ahead. For [facility], the time of change occurs at 0200 hrs. Time is taken from the windows server administrator. This entry on the patient's chart recognizes the change in time reflected during documentation. Example: 2 entries for vital signs may be charted for 0200 hrs.
[2024-03-13] MEDS: oxyCODONE HCL (*CRX) 2.5 MG TAB IR PO ×2 (02:36→16:21)
[2024-03-13] MEDS: LEVOTHYROXINE SODIUM 75 MCG TABLET PO (05:49)
[2024-03-13 06:00] VITALS: BP 126/61; PULSE 56; RESP 16; TEMP 36.2; O2SAT 95
[2024-03-13 07:19] LABS: Basophils Percent Auto 0.8 % (0.2-1.2); Eosinophils Absolute Auto 0.2 K/mm3 (0-0.3); Eosinophils Percent Auto 4.1 % (0-4.4); Hemoglobin 11.6 g/dL (14.0-18.0); Immature Granulocyte Absolute 0.04 K/mm3 (0.00-0.031); Immature Granulocyte Percent A 0.8 % (0-0.5); Lymphocytes Absolute Auto 0.89 K/mm3 (0.9-3.2); Lymphocytes Percent Auto 18.3 % (18.3-44.2); Mean Corpuscular HGB Conc 33.1 g/dl (32-36); Mean Corpuscular Hemoglobin 33.1 pg (26-34); Mean Platelet Volume 10.4 fl (7.4-10.4); Monocytes Absolute Auto 0.6 K/mm3 (0.1-0.6); Monocytes Percent Auto 11.3 % (2.6-8.5); Neutrophils Absolute Auto 3.2 K/mm3 (1.3-6.7); Neutrophils Percent Auto 64.7 % (45.5-73.1); Platelet Count Result 148 k/mm3 (150-375); Red Cell Distribution Width 13.2 % (11.5-14.5); White Blood Count 4.9 K/mm3 (4.5-10.0)
[2024-03-13 08:00] VITALS: PULSE 60; RESP 20; O2SAT 96
[2024-03-13 08:18] LABS: Alanine Aminotransferase 13 U/L (6-50); Albumin Level 3.5 g/dL (3.5-5.1); Alkaline Phosphatase 132 U/L (38-126); Anion Gap 7 mmol/L (4-12); Aspartate Amino Transferase 23 U/L (17-59); Bilirubin,Total 0.5 mg/dL (0.2-1.3); Blood Urea Nitrogen 17 mg/dL (9-20); Calcium 8.6 mg/dL (8.4-10.2); Carbon Dioxide 26 mmol/L (22-30); Chloride 105 mmol/L (98-107); Estimated CRCL calculation 54 ml/min; Estimated Glomerular Filt Rate > 60; Glucose 85 mg/dL (65-110); Magnesium 2.1 mg/dL (1.6-2.3); Sodium 138 mmol/L (137-145)
[2024-03-13 08:21] VITALS: PULSE 60; RESP 20; O2SAT 96
[2024-03-13] MEDS: UMECLIDINIUM BROMIDE 62.5 MCG ELLIPTA 1 PUFF INHALATION (08:21)
[2024-03-13] MEDS: CARBIDOPA/LEVODOPA 25/100 MG TABLET 2 TABLET PO ×3 (08:37→18:17)
[2024-03-13] MEDS: PANTOPRAZOLE 40 MG TABLET PO ×2 (08:38→20:27)
[2024-03-13] MEDS: GABAPENTIN 300 MG CAPSULE PO ×4 (08:38→20:27)
[2024-03-13] MEDS: BUMETANIDE 1 MG TABLET PO (08:38)
[2024-03-13] MEDS: carBAMazepine 200 MG TABLET PO ×2 (08:38→20:27)
[2024-03-13] MEDS: predniSONE 2.5 MG TABLET PO ×2 (08:38→16:21)
[2024-03-13] MEDS: polyethylene glycoL 3350 17 GM POWD.PACK PO (08:38)
[2024-03-13] MEDS: HYDROXYCHLOROQUINE SULFATE 200 MG TABLET 400 MG PO (08:38)
[2024-03-13] MEDS: FAMOTIDINE 20 MG TABLET PO ×2 (08:38→20:27)
[2024-03-13] MEDS: FINASTERIDE 5 MG TABLET PO (08:38)
[2024-03-13] MEDS: MIRABEGRON 25 MG ER TABLET PO (08:39)
[2024-03-13] MEDS: ENOXAPARIN 40 MG/0.4 ML SYRINGE SUB-Q (08:39)
[2024-03-13] MEDS: IBUPROFEN 600 MG TABLET PO ×2 (08:43→18:17)
[2024-03-13] MEDS: rOPINIRole HCL 1 MG TABLET PO ×2 (08:43→16:22)
[2024-03-13] MEDS: ACETAMINOPHEN 500 MG TABLET 1000 MG PO (11:27)
--- NOTE | 2024-03-13 11:58 | PM.IMPN ---
Progress Note: A&P Assessment and Plan (1) Finger osteomyelitis, left: Code(s): M86.9 - Osteomyelitis, unspecified Status: Acute (2) Septic arthritis of interphalangeal joint of finger: Code(s): M00.9 - Pyogenic arthritis, unspecified Status: Acute (3) Dementia due to Parkinson's disease: Qualifiers: Dementia severity: mild Dementia behavioral or psychological symptom: without behavioral, psychotic, or mood disturbance or anxiety Qualified Code(s): G20.A1 - Parkinson's disease without dyskinesia, without mention of fluctuations; F02.A0 - Dementia in other diseases classified elsewhere, mild, without behavioral disturbance, psychotic disturbance, mood disturbance, and anxiety Code(s): G20.A1 - Parkinson's disease without dyskinesia, without mention of fluctuations; F02.80 - Dementia in other diseases classified elsewhere, unspecified severity, without behavioral disturbance, psychotic disturbance, mood disturbance, and anxiety Status: Acute (4) BPH (benign prostatic hyperplasia): Qualifiers: Lower urinary tract symptom presence: symptoms present Lower urinary tract symptom detail: urinary frequency Qualified Code(s): N40.1 - Benign prostatic hyperplasia with lower urinary tract symptoms; R35.0 - Frequency of micturition Code(s): N40.0 - Benign prostatic hyperplasia without lower urinary tract symptoms Status: Inactive (5) Urinary incontinence due to benign prostatic hyperplasia: Code(s): N40.1 - Benign prostatic hyperplasia with lower urinary tract symptoms; N39.498 - Other specified urinary incontinence Status: Acute Plan 84-year-old male with past medical history of mild Parkinson's related dementia (recently diagnosed) BPH with urinary incontinence, COPD, CHF, coronary artery disease, obstructive sleep apnea and recent diagnosis in treatment of MRSA 3rd distal left middle finger. Patient had a myxoid cyst drained from his left 3rd finger extensor surface just proximal to the nail cuticle by retail account representative early in February. Few days later he developed and abscess in the area just lateral to where the cyst had been drained. The area had been I and D x2 without improvement. He was prescribed Bactrim and he was referred to Dr. Galvan. Prior to going to see Dr. Galvan she ended up in our ER on February 15. Culture obtained at time of I and D grew out MRSA with scant growth. He was given 1 dose of vancomycin and discharged with instructions to continue Bactrim. He followed up with Dr. Galvan (or Dr. Colmenares) who had ordered an MRI of the finger. Prior to the MRI being performed patient's finger became acutely more inflamed and painful. Initially they thought this could be due to him being off of his rheumatoid medications. It had some associated swelling and erythema. His daughter started to empirically soak his finger in Betadine. She reported that when she would pull his finger out of Betadine it had almost a purulence like material that would drain from it for a day or 2. She did contact Dr. Galvan office who recommended that they follow through with the MRI which they did which demonstrated evidence of osteomyelitis and septic arthritis. Given these imaging findings and the patient's increasing joint pain he came to the ER for evaluation and treatment. Patient was started on vancomycin in the ER. Patient has been afebrile and had normal white count. He has had decreased appetite over the last couple of weeks. He denies any nausea or vomiting. Despite his recent diagnosis of Parkinson's related dementia the patient is alert oriented x3. Although with his permission his daughter does provide a majority of the recent history. His daughter reports that the patient's oxybutynin was recently discontinued (about 5 days ago) due to risks of interactions with Aricept that was recently started. Since the patient's oxybutynin has been discontinued patient has had increased amount of urinary incontinence from his baseline. He denies any dysuria, hematuria or foul-smelling urine. His last bowel movement was yesterday and was normally formed. He reports that the pain in his finger is improved if he wears Coban dressing on it to provide some pressure. The pain is worse with any manipulation of the finger at all or with any movement. He is on Tylenol and gabapentin chronically for pain. But was recently started on oxycodone due to the pain in his finger which is helping somewhat. The patient recently received permission to drive again. However the 1st time he tried to drive again he started having double vision. 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 But over the last week he has noticed worsening and more frequent episodes of double vision. He denies any headaches or other acute neurologic symptoms. They did follow-up with the ac/dc rewinder this past week told him there was there was nothing acutely wrong. The ac/dc rewinder felt the patient's increased double vision was due to fatigue. The patient is having pain in his buttocks. He he had a fall at home on the and came in for evaluation and was found to have a coccygeal fracture. # osteomyelitis and septic arthritis of the left distal 3rd phalanx of the 1st PIP joint MRI reviewed Patient noted outpatient culture was positive for MRSA continue Vancomycin Plastic surgery eval recommended 6 weeks of Abx Awaiting home health setup for 6 weeks [address]x and will place PICC once set up vancomycin trough pending tonight to decide dosing of vancomycin which will be continued for 6 total weeks. Labs needs to be followed cbc CMP CRP ESR weekly while on IV vancomycin. PICC line to be placed in a.m. Home health/ home infusion to set up with care coordination Id follow-up as an outpatient basis. # Parkinson's disease continue home meds # possible overactive bladder Was on Oxybutynin discussed with daughter who agreed to restarting Myrbetriq Restarted Myrbetriq # Restless leg syndrome:on ropinirole. not controlled. adjust dose as disucssed # BPH continue home meds # DVT prophylaxis on lovenox Subjective Date/time seen: 03/13/24 11:58 Interval history: No overnight events. Feeling better. Swelling of the left middle finger is improving Review of Systems Review of Systems: All systems reviewed & are unremarkable except as noted in HPI and below Exam Narrative: GENERAL: The patient is well developed, not in acute distress HEENT: Nonicteric sclerae, PERRLA, EOMI. Oropharynx clear. Moist mucous membranes. Conjunctivae appear well perfused. CHEST: Chest wall is nontender. HEART: Regular rate and rhythm without murmur, rubs, or gallops LUNGS: Clear to auscultation bilaterally. no respiratory distress ABDOMEN: Soft, positive bowel sounds, non-tender, no organomegaly. SKIN: No rash, no excessive bruising, petechiae, or purpura. NEUROLOGIC: Cranial nerves II-XII intact, alert and oriented x 3, no gross motor deficits EXTREMITIES: no edema, cyanosis or clubbing Left middle finger distal joint swollen And erythematous Objective Data Vital Signs Vital Signs: Vital Signs - 24 hr 03/12/24 14:00 03/12/24 20:00 03/12/24 22:00 Temperature 97.9 F 97.3 F L Pulse Rate 56 L 47 L Respiratory Rate 16 18 Blood Pressure 112/51 L 134/66 Pulse Oximetry 95 98 Oxygen Delivery Room Air Fraction of Inspired Oxygen 03/13/24 06:00 03/13/24 08:21 03/13/24 08:21 Temperature 97.2 F L Pulse Rate 56 L 60 Respiratory Rate 16 20 Blood Pressure 126/61 Pulse Oximetry 95 96 Oxygen Delivery Room Air Fraction of Inspired Oxygen 21 Intake/Output Intake/Output: Intake & Output 03/10/24 03/11/24 03/12/24 03/13/24 23:59 23:59 23:59 22:59 Intake Total 1497 440 1260 1310 Output Total 250 1750 Balance 1550 -780 1710 1310 Meds/Results Medications: Active Medications Generic Name Dose Route Start Last Admin Trade Name Freq PRN Reason Stop Dose Admin Acetaminophen 650 mg 03/08/24 18:00 03/12/24 18:04 Acetaminophen 325 Mg Tablet PO 650 mg QPM CHRISTINE Administration Acetaminophen 1,000 mg 03/07/24 20:01 03/13/24 11:27 Acetaminophen 500 Mg Tablet PO 1,000 mg TID PRN Administration pain 1-3 or fever Albuterol 2 puff 03/07/24 20:01 03/10/24 21:45 Albuterol Sulfate (*Sp) Aerosol 1 Puff INHALATION 2 puff Q4HRT PRN Administration shortness of breath or wheezing Albuterol/Ipratropium 3 ml 03/10/24 15:33 Ipratropium 0.5 Mg/Albuterol Sulfate 2.5 Mg Ampul.Neb 3 Ml INHALATION Q4HRT PRN Shortness Of Breath Or Wheezing Aspirin 81 mg 03/07/24 21:00 03/12/24 20:12 Aspirin 81 Mg Enteric Tablet PO 81 mg QHS CHRISTINE Administration Bumetanide 1 mg 03/08/24 09:00 03/13/24 08:38 Bumetanide 1 Mg Tablet PO 1 mg DAILY CHRISTINE Administration Carbamazepine 200 mg 03/07/24 21:00 03/13/24 08:38 Carbamazepine 200 Mg Tablet PO 200 mg Q12H CHRISTINE Administration Carbidopa/Levodopa 2 tablet 03/08/24 08:30 03/13/24 08:37 Carbidopa/Levodopa 25/100 Mg Tablet PO 2 tablet DAILY@0830,1230,1830 CHRISTINE Administration Donepezil HCl 10 mg 03/11/24 21:00 03/12/24 19:16 Donepezil Hcl 10 Mg Tablet PO Not Given HS CHRISTINE Enoxaparin Sodium 40 mg 03/08/24 09:00 03/13/24 08:39 Enoxaparin 40 Mg/0.4 Ml Syringe SUB-Q 40 mg DAILY CHRISTINE Administration Famotidine 20 mg 03/08/24 09:00 03/13/24 08:38 Famotidine 20 Mg Tablet PO 20 mg Q12HR CHRISTINE Administration Finasteride 5 mg 03/08/24 09:00 03/13/24 08:38 Finasteride 5 Mg Tablet PO 5 mg DAILY CHRISTINE Administration Gabapentin 300 mg 03/07/24 21:00 03/13/24 11:27 Gabapentin 300 Mg Capsule PO 300 mg QID CHRISTINE Administration Hydroxychloroquine Sulfate 400 mg 03/08/24 09:00 03/13/24 08:38 Hydroxychloroquine Sulfate 200 Mg Tablet PO 400 mg DAILY CHRISTINE Administration Vancomycin HCl 1,500 mg in 500 mls @ 250 mls/hr 03/11/24 20:00 03/13/24 00:17 Vancomycin 1,500 Mg/Ns 500 Ml IVPB Infused Q24H CHRISTINE Infusion Ibuprofen 600 mg 03/07/24 20:01 03/13/24 08:43 Ibuprofen 600 Mg Tablet PO 600 mg TID PRN Administration pain 4-6 Levothyroxine Sodium 75 mcg 03/08/24 06:30 03/13/24 05:49 Levothyroxine Sodium 75 Mcg Tablet PO 75 mcg DAILY@0630 CHRISTINE Administration Melatonin 10 mg 03/08/24 04:57 03/12/24 20:13 Melatonin 5 Mg Tablet PO 10 mg HS PRN Administration difficulty sleeping Mirabegron 25 mg 03/09/24 13:55 03/13/24 08:39 Mirabegron 25 Mg Er Tablet PO 25 mg DAILY CHRISTINE Administration Nitroglycerin 0.4 mg 03/07/24 20:01 Nitroglycerin Sl 0.4 Mg Tablet SUBLINGUAL PRN PRN Chest Pain Oxycodone HCl 2.5 mg 03/07/24 20:01 03/13/24 02:36 Oxycodone Hcl (*Crx) 2.5 Mg Tab Ir PO 2.5 mg Q8H PRN Administration pain 7-10 Pantoprazole Sodium 40 mg 03/08/24 09:00 03/13/24 08:38 Pantoprazole 40 Mg Tablet PO 40 mg Q12HR CHRISTINE Administration Polyethylene Glycol 17 gm 03/08/24 09:00 03/13/24 08:38 Polyethylene Glycol 3350 17 Gm Powd.Pack PO 17 gm DAILY CHRISTINE Administration Prednisone 2.5 mg 03/08/24 09:00 03/13/24 08:38 Prednisone 2.5 Mg Tablet PO 2.5 mg BID CHRISTINE Administration Ropinirole HCl 3 mg 03/12/24 22:00 03/12/24 20:12 Ropinirole Hcl 1 Mg Tablet PO 3 mg 2200 CHRISTINE Administration Ropinirole HCl 1 mg 03/13/24 08:00 03/13/24 08:43 Ropinirole Hcl 1 Mg Tablet PO 1 mg 0800 CHRISTINE Administration Ropinirole HCl 1 mg 03/12/24 15:00 03/12/24 16:10 Ropinirole Hcl 1 Mg Tablet PO 1 mg 1500 CHRISTINE Administration Ropinirole HCl 1 mg 03/12/24 14:14 Ropinirole Hcl 1 Mg Tablet PO DAILY PRN restless leg syndrome Tamsulosin HCl 0.4 mg 03/07/24 21:00 03/12/24 20:12 Tamsulosin Hcl 0.4 Mg Capsule PO 0.4 mg HS CHRISTINE Administration Trazodone HCl 25 mg 03/09/24 21:00 03/11/24 20:55 Trazodone Hcl 25 Mg Tablet PO 25 mg HS CHRISTINE Administration Umeclidinium [place] 1 puff 03/08/24 08:00 03/13/24 08:21 Umeclidinium [place] 62.5 Mcg Ellipta INHALATION 1 puff DAILYRT CHRISTINE Administration Radiology Results: ITS Impressions Chest X-Ray 03/10/24 16:06 IMPRESSION: 1. No acute cardiopulmonary disease. Labs Labs: Laboratory Results - last 24 hr 03/12/24 03/13/24 06:46 07:03 WBC 4.9 RBC 3.50 L Hgb 11.6 L Hct 35.0 L MCV 100.0 MCH 33.1 MCHC 33.1 RDW 13.2 Plt Count 148 L MPV 10.4 Immature Gran % (Auto) 0.8 H Neut % (Auto) 64.7 Lymph % (Auto) 18.3 Cherry % (Auto) 11.3 H Eos % (Auto) 4.1 Baso % (Auto) 0.8 Lymph # (Auto) 0.89 L Cherry # (Auto) 0.6 Eos # (Auto) 0.2 Baso # (Auto) 0.0 Abs Immat Gran (auto) 0.04 H Absolute Neuts (auto) 3.2 Absolute Nucleated RBC 0.000 Nucleated RBC % 0.0 Sodium 138 Potassium 4.0 Chloride 105 Carbon Dioxide 26 Anion Gap 7 BUN 17 Creatinine 0.80 Estim Creat Clear Calc 54 Estimated GFR > 60 Glucose 85 Calcium 8.6 Magnesium 2.1 Iron 109 TIBC 282 % Saturation 39 Ferritin 104.00 Total Bilirubin 0.5 AST 23 ALT 13 Alkaline Phosphatase 132 H Total Protein 6.0 L Albumin 3.5
[2024-03-13 14:00] VITALS: BP 144/65; PULSE 54; RESP 18; TEMP 36.3; O2SAT 98
[2024-03-13] MEDS: ACETAMINOPHEN 325 MG TABLET 650 MG PO (18:17)
[2024-03-13 18:31] LABS: Vancomycin Trough 17.2 ug/mL (10.0-20.0)
[2024-03-13] MEDS: TAMSULOSIN HCL 0.4 MG CAPSULE PO (20:26)
[2024-03-13] MEDS: rOPINIRole HCL 1 MG TABLET 3 MG PO (20:26)
[2024-03-13] MEDS: ASPIRIN 81 MG ENTERIC TABLET PO (20:27)
[2024-03-13] MEDS: VANCOMYCIN 1,500 MG/NS 500 ML BAG 250 MG IVPB (20:28)
[2024-03-13] MEDS: MELATONIN 5 MG TABLET 10 MG PO (20:28)
[2024-03-13 21:10] VITALS: BP 151/56; PULSE 54; RESP 18; TEMP 36.6; O2SAT 96
[2024-03-14 05:23] VITALS: BP 143/62; PULSE 52; RESP 20; TEMP 36.6; O2SAT 97
[2024-03-14] MEDS: LEVOTHYROXINE SODIUM 75 MCG TABLET PO (05:38)
[2024-03-14] MEDS: ACETAMINOPHEN 500 MG TABLET 1000 MG PO ×2 (06:35→20:45)
[2024-03-14 07:00] LABS: Basophils Percent Auto 0.6 % (0.2-1.2); Eosinophils Absolute Auto 0.2 K/mm3 (0-0.3); Eosinophils Percent Auto 3.7 % (0-4.4); Hematocrit 36.3 % (42.0-52.0); Hemoglobin 12.3 g/dL (14.0-18.0); Immature Granulocyte Absolute 0.01 K/mm3 (0.00-0.031); Immature Granulocyte Percent A 0.2 % (0-0.5); Lymphocytes Absolute Auto 1.01 K/mm3 (0.9-3.2); Lymphocytes Percent Auto 21.9 % (18.3-44.2); Mean Corpuscular HGB Conc 33.9 g/dl (32-36); Mean Corpuscular Hemoglobin 34.5 pg (26-34); Mean Corpuscular Volume 101.7 fl (80-100); Mean Platelet Volume 10.9 fl (7.4-10.4); Monocytes Absolute Auto 0.5 K/mm3 (0.1-0.6); Monocytes Percent Auto 11.5 % (2.6-8.5); Neutrophils Absolute Auto 2.9 K/mm3 (1.3-6.7); Neutrophils Percent Auto 62.1 % (45.5-73.1); Platelet Count Result 162 k/mm3 (150-375); Red Blood Count 3.57 M/mm3 (4.6-6.20); Red Cell Distribution Width 13.3 % (11.5-14.5); White Blood Count 4.6 K/mm3 (4.5-10.0)
[2024-03-14 07:14] LABS: Alanine Aminotransferase 8 U/L (6-50); Albumin Level 3.8 g/dL (3.5-5.1); Alkaline Phosphatase 140 U/L (38-126); Anion Gap 6 mmol/L (4-12); Aspartate Amino Transferase 23 U/L (17-59); Bilirubin,Total 0.6 mg/dL (0.2-1.3); Blood Urea Nitrogen 17 mg/dL (9-20); Calcium 8.6 mg/dL (8.4-10.2); Carbon Dioxide 26 mmol/L (22-30); Chloride 105 mmol/L (98-107); Estimated CRCL calculation 54 ml/min; Estimated Glomerular Filt Rate > 60; Glucose 83 mg/dL (65-110); Magnesium 2.1 mg/dL (1.6-2.3); Potassium 4.1 mmol/L (3.4-5.0); Sodium 137 mmol/L (137-145)
[2024-03-14] MEDS: GABAPENTIN 300 MG CAPSULE PO ×4 (07:45→20:45)
[2024-03-14] MEDS: FAMOTIDINE 20 MG TABLET PO ×2 (07:45→20:45)
[2024-03-14] MEDS: PANTOPRAZOLE 40 MG TABLET PO ×2 (07:45→20:45)
[2024-03-14] MEDS: HYDROXYCHLOROQUINE SULFATE 200 MG TABLET 400 MG PO (07:45)
[2024-03-14] MEDS: MIRABEGRON 25 MG ER TABLET PO (07:45)
[2024-03-14] MEDS: BUMETANIDE 1 MG TABLET PO (07:46)
[2024-03-14] MEDS: FINASTERIDE 5 MG TABLET PO (07:46)
[2024-03-14] MEDS: carBAMazepine 200 MG TABLET PO ×2 (07:46→20:45)
[2024-03-14] MEDS: predniSONE 2.5 MG TABLET PO ×2 (07:46→16:34)
[2024-03-14] MEDS: rOPINIRole HCL 1 MG TABLET PO ×2 (07:49→15:04)
[2024-03-14] MEDS: ENOXAPARIN 40 MG/0.4 ML SYRINGE SUB-Q (07:50)
[2024-03-14] MEDS: CARBIDOPA/LEVODOPA 25/100 MG TABLET 2 TABLET PO ×3 (07:50→16:37)
--- NOTE | 2024-03-14 10:23 | PCRCNOTE ---
Window of time for administration has passed. See next scheduled administration.
--- NOTE | 2024-03-14 10:35 | PCNWS ---
Weekly nutritional screen. Patient is tolerating current heart healthy diet with adequate intake at 100%. No weight loss reported. No nutritional recommendations at this time.
--- NOTE | 2024-03-14 12:11 | PM.IMPN ---
Progress Note: A&P Assessment and Plan (1) Finger osteomyelitis, left: Code(s): M86.9 - Osteomyelitis, unspecified Status: Acute (2) Septic arthritis of interphalangeal joint of finger: Code(s): M00.9 - Pyogenic arthritis, unspecified Status: Acute (3) Dementia due to Parkinson's disease: Qualifiers: Dementia severity: mild Dementia behavioral or psychological symptom: without behavioral, psychotic, or mood disturbance or anxiety Qualified Code(s): G20.A1 - Parkinson's disease without dyskinesia, without mention of fluctuations; F02.A0 - Dementia in other diseases classified elsewhere, mild, without behavioral disturbance, psychotic disturbance, mood disturbance, and anxiety Code(s): G20.A1 - Parkinson's disease without dyskinesia, without mention of fluctuations; F02.80 - Dementia in other diseases classified elsewhere, unspecified severity, without behavioral disturbance, psychotic disturbance, mood disturbance, and anxiety Status: Acute (4) BPH (benign prostatic hyperplasia): Qualifiers: Lower urinary tract symptom presence: symptoms present Lower urinary tract symptom detail: urinary frequency Qualified Code(s): N40.1 - Benign prostatic hyperplasia with lower urinary tract symptoms; R35.0 - Frequency of micturition Code(s): N40.0 - Benign prostatic hyperplasia without lower urinary tract symptoms Status: Inactive (5) Urinary incontinence due to benign prostatic hyperplasia: Code(s): N40.1 - Benign prostatic hyperplasia with lower urinary tract symptoms; N39.498 - Other specified urinary incontinence Status: Acute Plan 84-year-old male with past medical history of mild Parkinson's related dementia (recently diagnosed) BPH with urinary incontinence, COPD, CHF, coronary artery disease, obstructive sleep apnea and recent diagnosis in treatment of MRSA 3rd distal left middle finger. Patient had a myxoid cyst drained from his left 3rd finger extensor surface just proximal to the nail cuticle by senior data quality analyst early in February. Few days later he developed and abscess in the area just lateral to where the cyst had been drained. The area had been I and D x2 without improvement. He was prescribed Bactrim and he was referred to Dr. Galvan. Prior to going to see Dr. Galvan she ended up in our ER on February 15. Culture obtained at time of I and D grew out MRSA with scant growth. He was given 1 dose of vancomycin and discharged with instructions to continue Bactrim. He followed up with Dr. Galvan (or Dr. Colmenares) who had ordered an MRI of the finger. Prior to the MRI being performed patient's finger became acutely more inflamed and painful. Initially they thought this could be due to him being off of his rheumatoid medications. It had some associated swelling and erythema. His daughter started to empirically soak his finger in Betadine. She reported that when she would pull his finger out of Betadine it had almost a purulence like material that would drain from it for a day or 2. She did contact Dr. Galvan office who recommended that they follow through with the MRI which they did which demonstrated evidence of osteomyelitis and septic arthritis. Given these imaging findings and the patient's increasing joint pain he came to the ER for evaluation and treatment. Patient was started on vancomycin in the ER. Patient has been afebrile and had normal white count. He has had decreased appetite over the last couple of weeks. He denies any nausea or vomiting. Despite his recent diagnosis of Parkinson's related dementia the patient is alert oriented x3. Although with his permission his daughter does provide a majority of the recent history. His daughter reports that the patient's oxybutynin was recently discontinued (about 5 days ago) due to risks of interactions with Aricept that was recently started. Since the patient's oxybutynin has been discontinued patient has had increased amount of urinary incontinence from his baseline. He denies any dysuria, hematuria or foul-smelling urine. His last bowel movement was yesterday and was normally formed. He reports that the pain in his finger is improved if he wears Coban dressing on it to provide some pressure. The pain is worse with any manipulation of the finger at all or with any movement. He is on Tylenol and gabapentin chronically for pain. But was recently started on oxycodone due to the pain in his finger which is helping somewhat. The patient recently received permission to drive again. However the 1st time he tried to drive again he started having double vision. 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 But over the last week he has noticed worsening and more frequent episodes of double vision. He denies any headaches or other acute neurologic symptoms. They did follow-up with the cost estimating clerk this past week told him there was there was nothing acutely wrong. The cost estimating clerk felt the patient's increased double vision was due to fatigue. The patient is having pain in his buttocks. He he had a fall at home on the and came in for evaluation and was found to have a coccygeal fracture. # osteomyelitis and septic arthritis of the left distal 3rd phalanx of the 1st PIP joint MRI reviewed Patient noted outpatient culture was positive for MRSA continue Vancomycin Plastic surgery eval recommended 6 weeks of Abx vancomycin trough 17. Continue vancomycin 1.5 g IV every 24 hours. Stop date 04/21/2024. For total of [address] PICC line Care coordination to set up home health/home infusion Labs needs to be followed cbc CMP CRP ESR weekly vanc trough twice weekly while on IV vancomycin. PICC line to be placed in a.m. Home health/ home infusion to set up with care coordination Id follow-up as an outpatient basis. # Parkinson's disease continue home meds # possible overactive bladder Was on Oxybutynin discussed with daughter who agreed to restarting Myrbetriq Restarted Myrbetriq # Restless leg syndrome:on ropinirole. not controlled. adjust dose as disucssed # BPH continue home meds # DVT prophylaxis on lovenox Subjective Date/time seen: 03/14/24 12:11 Interval history: No overnight events. No new complaints. Finger is doing better. Review of Systems Review of Systems: All systems reviewed & are unremarkable except as noted in HPI and below Exam Narrative: GENERAL: The patient is well developed, not in acute distress HEENT: Nonicteric sclerae, PERRLA, EOMI. Oropharynx clear. Moist mucous membranes. Conjunctivae appear well perfused. CHEST: Chest wall is nontender. HEART: Regular rate and rhythm without murmur, rubs, or gallops LUNGS: Clear to auscultation bilaterally. no respiratory distress ABDOMEN: Soft, positive bowel sounds, non-tender, no organomegaly. SKIN: No rash, no excessive bruising, petechiae, or purpura. NEUROLOGIC: Cranial nerves II-XII intact, alert and oriented x 3, no gross motor deficits EXTREMITIES: no edema, cyanosis or clubbing Left middle finger distal joint swollen And erythematous Objective Data Vital Signs Vital Signs: Vital Signs - 24 hr 03/13/24 14:00 03/13/24 21:10 03/13/24 20:00 Temperature 97.3 F L 97.9 F Pulse Rate 54 L 54 L Respiratory Rate 18 18 Blood Pressure 144/65 H 151/56 H Pulse Oximetry 98 96 Oxygen Delivery Room Air 03/14/24 05:23 03/14/24 08:00 Temperature 97.8 F Pulse Rate 52 L Respiratory Rate 20 Blood Pressure 143/62 H Pulse Oximetry 97 Oxygen Delivery Room Air Intake/Output Intake/Output: Intake & Output 03/12/24 03/13/24 03/13/24 03/14/24 00:59 00:59 23:59 23:59 Intake Total 1100 Output Total 650 Balance 450 Meds/Results Medications: Active Medications Generic Name Dose Route Start Last Admin Trade Name Freq PRN Reason Stop Dose Admin Acetaminophen 650 mg 03/08/24 18:00 03/13/24 18:17 Acetaminophen 325 Mg Tablet PO 650 mg QPM CHRISTINE Administration Acetaminophen 1,000 mg 03/07/24 20:01 03/14/24 06:35 Acetaminophen 500 Mg Tablet PO 1,000 mg TID PRN Administration pain 1-3 or fever Albuterol 2 puff 03/07/24 20:01 03/10/24 21:45 Albuterol Sulfate (*Sp) Aerosol 1 Puff INHALATION 2 puff Q4HRT PRN Administration shortness of breath or wheezing Albuterol/Ipratropium 3 ml 03/10/24 15:33 Ipratropium 0.5 Mg/Albuterol Sulfate 2.5 Mg Ampul.Neb 3 Ml INHALATION Q4HRT PRN Shortness Of Breath Or Wheezing Aspirin 81 mg 03/07/24 21:00 03/13/24 20:27 Aspirin 81 Mg Enteric Tablet PO 81 mg QHS CHRISTINE Administration Bumetanide 1 mg 03/08/24 09:00 03/14/24 07:46 Bumetanide 1 Mg Tablet PO 1 mg DAILY CHRISTINE Administration Carbamazepine 200 mg 03/07/24 21:00 03/14/24 07:46 Carbamazepine 200 Mg Tablet PO 200 mg Q12H CHRISTINE Administration Carbidopa/Levodopa 2 tablet 03/08/24 08:30 03/14/24 07:50 Carbidopa/Levodopa 25/100 Mg Tablet PO 2 tablet DAILY@0830,1230,1830 CHRISTINE Administration Donepezil HCl 10 mg 03/11/24 21:00 03/12/24 19:16 Donepezil Hcl 10 Mg Tablet PO Not Given HS CHRISTINE Enoxaparin Sodium 40 mg 03/08/24 09:00 03/14/24 07:50 Enoxaparin 40 Mg/0.4 Ml Syringe SUB-Q 40 mg DAILY CHRISTINE Administration Famotidine 20 mg 03/08/24 09:00 03/14/24 07:45 Famotidine 20 Mg Tablet PO 20 mg Q12HR CHRISTINE Administration Finasteride 5 mg 03/08/24 09:00 03/14/24 07:46 Finasteride 5 Mg Tablet PO 5 mg DAILY CHRISTINE Administration Gabapentin 300 mg 03/07/24 21:00 03/14/24 07:45 Gabapentin 300 Mg Capsule PO 300 mg QID CHRISTINE Administration Hydroxychloroquine Sulfate 400 mg 03/08/24 09:00 03/14/24 07:45 Hydroxychloroquine Sulfate 200 Mg Tablet PO 400 mg DAILY CHRISTINE Administration Vancomycin HCl 1,500 mg in 500 mls @ 250 mls/hr 03/11/24 20:00 03/14/24 03:44 Vancomycin 1,500 Mg/Ns 500 Ml IVPB Infused Q24H CHRISTINE Infusion Ibuprofen 600 mg 03/07/24 20:01 03/13/24 18:17 Ibuprofen 600 Mg Tablet PO 600 mg TID PRN Administration pain 4-6 Levothyroxine Sodium 75 mcg 03/08/24 06:30 03/14/24 05:38 Levothyroxine Sodium 75 Mcg Tablet PO 75 mcg DAILY@0630 CHRISTINE Administration Lidocaine HCl 5 ml 03/14/24 12:10 Lidocaine Hcl 1% Pf Inj 5 Ml Vial INFILTRATE 03/14/24 12:11 ONCE ONE Melatonin 10 mg 03/08/24 04:57 03/13/24 20:28 Melatonin 5 Mg Tablet PO 10 mg HS PRN Administration difficulty sleeping Mirabegron 25 mg 03/09/24 13:55 03/14/24 07:45 Mirabegron 25 Mg Er Tablet PO 25 mg DAILY CHRISTINE Administration Nitroglycerin 0.4 mg 03/07/24 20:01 Nitroglycerin Sl 0.4 Mg Tablet SUBLINGUAL PRN PRN Chest Pain Oxycodone HCl 2.5 mg 03/07/24 20:01 03/13/24 16:21 Oxycodone Hcl (*Crx) 2.5 Mg Tab Ir PO 2.5 mg Q8H PRN Administration pain 7-10 Pantoprazole Sodium 40 mg 03/08/24 09:00 03/14/24 07:45 Pantoprazole 40 Mg Tablet PO 40 mg Q12HR CHRISTINE Administration Polyethylene Glycol 17 gm 03/08/24 09:00 03/14/24 07:55 Polyethylene Glycol 3350 17 Gm Powd.Pack PO Not Given DAILY CHRISTINE Prednisone 2.5 mg 03/08/24 09:00 03/14/24 07:46 Prednisone 2.5 Mg Tablet PO 2.5 mg BID CHRISTINE Administration Ropinirole HCl 3 mg 03/12/24 22:00 03/13/24 20:26 Ropinirole Hcl 1 Mg Tablet PO 3 mg 2200 CHRISTINE Administration Ropinirole HCl 1 mg 03/13/24 08:00 03/14/24 07:49 Ropinirole Hcl 1 Mg Tablet PO 1 mg 0800 CHRISTINE Administration Ropinirole HCl 1 mg 03/12/24 15:00 03/13/24 16:22 Ropinirole Hcl 1 Mg Tablet PO 1 mg 1500 CHRISTINE Administration Ropinirole HCl 1 mg 03/12/24 14:14 Ropinirole Hcl 1 Mg Tablet PO DAILY PRN restless leg syndrome Tamsulosin HCl 0.4 mg 03/07/24 21:00 03/13/24 20:26 Tamsulosin Hcl 0.4 Mg Capsule PO 0.4 mg HS [facility] Administration Trazodone HCl 25 mg 03/09/24 21:00 03/11/24 20:55 Trazodone Hcl 25 Mg Tablet PO 25 mg HS [facility] Administration [place]clidin[place] 1 puff 03/08/24 08:00 03/14/24 10:23 [place]cl[place] 62.5 Mcg Ellipta IN[facility]ATION [facility] Results: ITS Impressions Chest X-Ray 03/10/24 16:06 IMPRESSION: 1. No acute cardiopulmonary disease. Labs Labs: Laboratory Results - last 24 hr 03/13/24 03/14/24 17:54 06:31 WBC 4.6 RBC 3.57 L Hgb 12.3 L Hct 36.3 L MCV 101.7 H MCH 34.5 H MCHC 33.9 RDW 13.3 Plt Count 162 MPV 10.9 H Immature Gran % (Auto) 0.2 Neut % (Auto) 62.1 Lymph % (Auto) 21.9 [place] % (Auto) 11.5 H Eos % (Auto) 3.7 Baso % (Auto) 0.6 Lymph # (Auto) 1.01 [place] # (Auto) 0.5 Eos # (Auto) 0.2 Baso # (Auto) 0.0 Abs Immat Gran (auto) 0.01 Absolute Neuts (auto) 2.9 Absolute Nucleated RBC 0.000 Nucleated RBC % 0.0 Sodium 137 Potassium 4.1 Chloride 105 Carbon Dioxide 26 Anion Gap 6 BUN 17 Creatinine 0.80 Estim Creat Clear Calc 54 Estimated GFR > 60 Glucose 83 Calcium 8.6 Magnesium 2.1 Total Bilirubin 0.6 AST 23 ALT 8 Alkaline Phosphatase 140 H Total Protein 7.0 Albumin 3.8 Vancomycin Trough 17.2
[2024-03-14 14:00] VITALS: BP 127/60; PULSE 60; RESP 18; TEMP 36.4; O2SAT 97
[2024-03-14] MEDS: LIDOCAINE HCL 1% PF INJ 5 ML VIAL INFILTRATE (14:50)
[2024-03-14] MEDS: ACETAMINOPHEN 325 MG TABLET 650 MG PO (16:34)
[2024-03-14] MEDS: VANCOMYCIN 1,500 MG/NS 500 ML BAG 250 MG IVPB (20:43)
[2024-03-14] MEDS: rOPINIRole HCL 1 MG TABLET 3 MG PO (20:44)
[2024-03-14] MEDS: ASPIRIN 81 MG ENTERIC TABLET PO (20:45)
[2024-03-14] MEDS: TAMSULOSIN HCL 0.4 MG CAPSULE PO (20:45)
[2024-03-14] MEDS: CENTRAL LINE FLUSH 10 ML IV PUSH (20:45)
[2024-03-14] MEDS: MELATONIN 5 MG TABLET 10 MG PO (20:45)
[2024-03-14 22:00] VITALS: BP 147/62; PULSE 51; RESP 20; TEMP 36.6; O2SAT 98
[2024-03-15] MEDS: LEVOTHYROXINE SODIUM 75 MCG TABLET PO (05:13)
[2024-03-15] MEDS: CENTRAL LINE FLUSH 10 ML IV PUSH ×3 (05:13→21:05)
[2024-03-15] MEDS: oxyCODONE HCL (*CRX) 2.5 MG TAB IR PO (05:13)
[2024-03-15 05:47] VITALS: BP 132/55; PULSE 56; RESP 14; TEMP 36.2; O2SAT 98
[2024-03-15] MEDS: MIRABEGRON 25 MG ER TABLET PO (07:54)
[2024-03-15] MEDS: GABAPENTIN 300 MG CAPSULE PO ×4 (07:54→21:04)
[2024-03-15] MEDS: FAMOTIDINE 20 MG TABLET PO ×2 (07:54→21:05)
[2024-03-15] MEDS: FINASTERIDE 5 MG TABLET PO (07:55)
[2024-03-15] MEDS: BUMETANIDE 1 MG TABLET PO (07:55)
[2024-03-15] MEDS: carBAMazepine 200 MG TABLET PO ×2 (07:55→21:05)
[2024-03-15] MEDS: PANTOPRAZOLE 40 MG TABLET PO ×2 (07:55→21:05)
[2024-03-15] MEDS: predniSONE 2.5 MG TABLET PO ×2 (07:55→16:48)
[2024-03-15 08:00] VITALS: PULSE 62; RESP 16; O2SAT 99
[2024-03-15] MEDS: CARBIDOPA/LEVODOPA 25/100 MG TABLET 2 TABLET PO ×3 (08:08→16:48)
[2024-03-15] MEDS: ENOXAPARIN 40 MG/0.4 ML SYRINGE SUB-Q (08:08)
[2024-03-15] MEDS: rOPINIRole HCL 1 MG TABLET PO ×2 (08:08→13:36)
[2024-03-15] MEDS: UMECLIDINIUM BROMIDE 62.5 MCG ELLIPTA 1 PUFF INHALATION (09:06)
--- NOTE | 2024-03-15 13:05 | PM.IMPN ---
Progress Note: A&P Assessment and Plan (1) Finger osteomyelitis, left: Code(s): M86.9 - Osteomyelitis, unspecified Status: Acute (2) Septic arthritis of interphalangeal joint of finger: Code(s): M00.9 - Pyogenic arthritis, unspecified Status: Acute (3) Dementia due to Parkinson's disease: Qualifiers: Dementia severity: mild Dementia behavioral or psychological symptom: without behavioral, psychotic, or mood disturbance or anxiety Qualified Code(s): G20.A1 - Parkinson's disease without dyskinesia, without mention of fluctuations; F02.A0 - Dementia in other diseases classified elsewhere, mild, without behavioral disturbance, psychotic disturbance, mood disturbance, and anxiety Code(s): G20.A1 - Parkinson's disease without dyskinesia, without mention of fluctuations; F02.80 - Dementia in other diseases classified elsewhere, unspecified severity, without behavioral disturbance, psychotic disturbance, mood disturbance, and anxiety Status: Acute (4) BPH (benign prostatic hyperplasia): Qualifiers: Lower urinary tract symptom presence: symptoms present Lower urinary tract symptom detail: urinary frequency Qualified Code(s): N40.1 - Benign prostatic hyperplasia with lower urinary tract symptoms; R35.0 - Frequency of micturition Code(s): N40.0 - Benign prostatic hyperplasia without lower urinary tract symptoms Status: Inactive (5) Urinary incontinence due to benign prostatic hyperplasia: Code(s): N40.1 - Benign prostatic hyperplasia with lower urinary tract symptoms; N39.498 - Other specified urinary incontinence Status: Acute Plan 84-year-old male with past medical history of mild Parkinson's related dementia (recently diagnosed) BPH with urinary incontinence, COPD, CHF, coronary artery disease, obstructive sleep apnea and recent diagnosis in treatment of MRSA 3rd distal left middle finger. Patient had a myxoid cyst drained from his left 3rd finger extensor surface just proximal to the nail cuticle by [employer]ire early in February. Few days later he developed and abscess in the area just lateral to where the cyst had been drained. The area had been I and D x2 without improvement. He was prescribed Bactrim and he was referred to Dr. Galvan. Prior to going to see Dr. Galvan she ended up in our ER on February 15. Culture obtained at time of I and D grew out MRSA with scant growth. He was given 1 dose of vancomycin and discharged with instructions to continue Bactrim. He followed up with Dr. Galvan (or Dr. Colmenares) who had ordered an MRI of the finger. Prior to the MRI being performed patient's finger became acutely more inflamed and painful. Initially they thought this could be due to him being off of his rheumatoid medications. It had some associated swelling and erythema. His daughter started to empirically soak his finger in Betadine. She reported that when she would pull his finger out of Betadine it had almost a purulence like material that would drain from it for a day or 2. She did contact Dr. Galvan office who recommended that they follow through with the MRI which they did which demonstrated evidence of osteomyelitis and septic arthritis. Given these imaging findings and the patient's increasing joint pain he came to the ER for evaluation and treatment. Patient was started on vancomycin in the ER. Patient has been afebrile and had normal white count. He has had decreased appetite over the last couple of weeks. He denies any nausea or vomiting. Despite his recent diagnosis of Parkinson's related dementia the patient is alert oriented x3. Although with his permission his daughter does provide a majority of the recent history. His daughter reports that the patient's oxybutynin was recently discontinued (about 5 days ago) due to risks of interactions with Aricept that was recently started. Since the patient's oxybutynin has been discontinued patient has had increased amount of urinary incontinence from his baseline. He denies any dysuria, hematuria or foul-smelling urine. His last bowel movement was yesterday and was normally formed. He reports that the pain in his finger is improved if he wears Coban dressing on it to provide some pressure. The pain is worse with any manipulation of the finger at all or with any movement. He is on Tylenol and gabapentin chronically for pain. But was recently started on oxycodone due to the pain in his finger which is helping somewhat. The patient recently received permission to drive again. However the 1st time he tried to drive again he started having double vision. 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 But over the last week he has noticed worsening and more frequent episodes of double vision. He denies any headaches or other acute neurologic symptoms. They did follow-up with the material loader this past week told him there was there was nothing acutely wrong. The material loader felt the patient's increased double vision was due to fatigue. The patient is having pain in his buttocks. He he had a fall at home on the and came in for evaluation and was found to have a coccygeal fracture. # osteomyelitis and septic arthritis of the left distal 3rd phalanx of the 1st PIP joint MRI reviewed Patient noted outpatient culture was positive for MRSA continue Vancomycin Plastic surgery eval recommended 6 weeks of Abx vancomycin trough 17. Continue vancomycin 1.5 g IV every 24 hours. Stop date 04/21/2024. For total of 6 weeks PICC line placed Care coordination to set up home health/home infusion Labs needs to be followed cbc CMP CRP ESR weekly vanc trough twice weekly while on IV vancomycin. Home health/ home infusion to set up with care coordination Id follow-up as an outpatient basis. This is still pending # Parkinson's disease continue home meds # possible overactive bladder Was on Oxybutynin discussed with daughter who agreed to restarting Myrbetriq Restarted Myrbetriq # Restless leg syndrome:on ropinirole. not controlled. adjust dose as disucssed # BPH continue home meds # DVT prophylaxis on lovenox Subjective Date/time seen: 03/15/24 13:05 Interval history: No overnight events. No new complaints. No nausea vomiting. No shortness of breath or chest pain. He does have chronic shortness of breath on exertion. Review of Systems Review of Systems: All systems reviewed & are unremarkable except as noted in HPI and below Exam Narrative: GENERAL: The patient is well developed, not in acute distress HEENT: Nonicteric sclerae, PERRLA, EOMI. Oropharynx clear. Moist mucous membranes. Conjunctivae appear well perfused. CHEST: Chest wall is nontender. HEART: Regular rate and rhythm without murmur, rubs, or gallops LUNGS: Clear to auscultation bilaterally. no respiratory distress ABDOMEN: Soft, positive bowel sounds, non-tender, no organomegaly. SKIN: No rash, no excessive bruising, petechiae, or purpura. NEUROLOGIC: Cranial nerves II-XII intact, alert and oriented x 3, no gross motor deficits EXTREMITIES: no edema, cyanosis or clubbing Left middle finger distal joint swollen And erythematous Objective Data Vital Signs Vital Signs: Vital Signs - 24 hr 03/14/24 14:00 03/14/24 22:15 03/14/24 22:00 Temperature 97.6 F 97.8 F Pulse Rate 60 51 L Respiratory Rate 18 20 Blood Pressure 127/60 147/62 H Pulse Oximetry 97 98 Oxygen Delivery CPAP 03/14/24 20:00 03/15/24 05:47 Temperature 97.2 F L Pulse Rate 56 L Respiratory Rate 14 Blood Pressure 132/55 L Pulse Oximetry 98 Oxygen Delivery Room Air Intake/Output Intake/Output: Intake & Output 03/13/24 03/13/24 03/14/24 03/15/24 00:59 23:59 23:59 23:59 Intake Total 1840 1460 Output Total 650 Balance 1190 1460 Meds/Results Medications: Active Medications Generic Name Dose Route Start Last Admin Trade Name Freq PRN Reason Stop Dose Admin Acetaminophen 650 mg 03/08/24 18:00 03/14/24 16:34 Acetaminophen 325 Mg Tablet PO 650 mg QPM CHRISTINE Administration Acetaminophen 1,000 mg 03/07/24 20:01 03/14/24 20:45 Acetaminophen 500 Mg Tablet PO 1,000 mg TID PRN Administration pain 1-3 or fever Albuterol 2 puff 03/07/24 20:01 03/10/24 21:45 Albuterol Sulfate (*Sp) Aerosol 1 Puff INHALATION 2 puff Q4HRT PRN Administration shortness of breath or wheezing Albuterol/Ipratropium 3 ml 03/10/24 15:33 Ipratropium 0.5 Mg/Albuterol Sulfate 2.5 Mg Ampul.Neb 3 Ml INHALATION Q4HRT PRN Shortness Of Breath Or Wheezing Aspirin 81 mg 03/07/24 21:00 03/14/24 20:45 Aspirin 81 Mg Enteric Tablet PO 81 mg QHS CHRISTINE Administration Bumetanide 1 mg 03/08/24 09:00 03/15/24 07:55 Bumetanide 1 Mg Tablet PO 1 mg DAILY CHRISTINE Administration Carbamazepine 200 mg 03/07/24 21:00 03/15/24 07:55 Carbamazepine 200 Mg Tablet PO 200 mg Q12H CHRISTINE Administration Carbidopa/Levodopa 2 tablet 03/08/24 08:30 03/15/24 08:08 Carbidopa/Levodopa 25/100 Mg Tablet PO 2 tablet DAILY@0830,1230,1830 CHRISTINE Administration Donepezil HCl 10 mg 03/11/24 21:00 03/12/24 19:16 Donepezil Hcl 10 Mg Tablet PO Not Given HS CHRISTINE Enoxaparin Sodium 40 mg 03/08/24 09:00 03/15/24 08:08 Enoxaparin 40 Mg/0.4 Ml Syringe SUB-Q 40 mg DAILY CHRISTINE Administration Famotidine 20 mg 03/08/24 09:00 03/15/24 07:54 Famotidine 20 Mg Tablet PO 20 mg Q12HR CHRISTINE Administration Finasteride 5 mg 03/08/24 09:00 03/15/24 07:55 Finasteride 5 Mg Tablet PO 5 mg DAILY CHRISTINE Administration Gabapentin 300 mg 03/07/24 21:00 03/15/24 07:54 Gabapentin 300 Mg Capsule PO 300 mg QID CHRISTINE Administration Vancomycin HCl 1,500 mg in 500 mls @ 250 mls/hr 03/11/24 20:00 03/15/24 04:28 Vancomycin 1,500 Mg/Ns 500 Ml IVPB Infused Q24H [facility]STINE Infusion Ibuprofen 600 mg 03/07/24 20:01 03/13/24 18:17 Ibuprofen 600 Mg Tablet PO 600 mg TID PRN Administration pain 4-6 Levothyroxine Sodium 75 mcg 03/08/24 06:30 03/15/24 05:13 Levothyroxine Sodium 75 Mcg Tablet PO 75 mcg DAILY@0630 CHRISTINE Administration Melatonin 10 mg 03/08/24 04:57 03/14/24 20:45 Melatonin 5 Mg Tablet PO 10 mg HS PRN Administration difficulty sleeping Mirabegron 25 mg 03/09/24 13:55 03/15/24 07:54 Mirabegron 25 Mg Er Tablet PO 25 mg DAILY CHRISTINE Administration Nitroglycerin 0.4 mg 03/07/24 20:01 Nitroglycerin Sl 0.4 Mg Tablet SUBLINGUAL PRN PRN Chest Pain Oxycodone HCl 2.5 mg 03/07/24 20:01 03/15/24 05:13 Oxycodone Hcl (*Crx) 2.5 Mg Tab Ir PO 2.5 mg Q8H PRN Administration pain 7-10 Pantoprazole Sodium 40 mg 03/08/24 09:00 03/15/24 07:55 Pantoprazole 40 Mg Tablet PO 40 mg Q12HR CHRISTINE Administration Polyethylene Glycol 17 gm 03/08/24 09:00 03/15/24 08:08 Polyethylene Glycol 3350 17 Gm Powd.Pack PO Not Given DAILY CHRISTINE Prednisone 2.5 mg 03/08/24 09:00 03/15/24 07:55 Prednisone 2.5 Mg Tablet PO 2.5 mg BID CHRISTINE Administration Ropinirole HCl 3 mg 03/12/24 22:00 03/14/24 20:44 Ropinirole Hcl 1 Mg Tablet PO 3 mg 2200 CHRISTINE Administration Ropinirole HCl 1 mg 03/13/24 08:00 03/15/24 08:08 Ropinirole Hcl 1 Mg Tablet PO 1 mg 0800 CHRISTINE Administration Ropinirole HCl 1 mg 03/12/24 15:00 03/14/24 15:04 Ropinirole Hcl 1 Mg Tablet PO 1 mg 1500 CHRISTINE Administration Ropinirole HCl 1 mg 03/12/24 14:14 Ropinirole Hcl 1 Mg Tablet PO DAILY PRN restless leg syndrome Sodium Chloride 20 ml 03/14/24 15:46 Central Line Flush IV PUSH PRN PRN after blood draws Sodium Chloride 10 ml 03/14/24 15:46 Central Line Flush IV PUSH PRN PRN with TPN bag changes Sodium Chloride 10 ml 03/14/24 22:00 03/15/24 05:13 Central Line Flush IV PUSH 10 ml Q8HR CHRISTINE Administration Tamsulosin HCl 0.4 mg 03/07/24 21:00 03/14/24 20:45 Tamsulosin Hcl 0.4 Mg Capsule PO 0.4 mg HS [facility] Administration Trazodone HCl 25 mg 03/09/24 21:00 03/11/24 20:55 Trazodone Hcl 25 Mg Tablet PO 25 mg HS [facility] Administration Umeclidinium [place] 1 puff 03/08/24 08:00 03/15/24 09:06 Umeclidinium [place] 62.5 Mcg Ellipta INHALATION 1 puff DAILYRT [facility] Administration Radiology Results: ITS Impressions Chest X-Ray 03/14/24 15:33 IMPRESSION: Cardiomegaly with cardiac decompensation and pulmonary edema. Pneumonitis is not excluded.
[2024-03-15] MEDS: BUMETANIDE INJ 1 MG/4 ML VIAL IV PUSH (13:42)
[2024-03-15 14:00] VITALS: BP 113/54; PULSE 62; RESP 16; TEMP 36.4; O2SAT 99
[2024-03-15] MEDS: ACETAMINOPHEN 325 MG TABLET 650 MG PO (16:52)
[2024-03-15 20:35] VITALS: BP 153/68; PULSE 57; RESP 20; TEMP 36.2; O2SAT 96
[2024-03-15] MEDS: rOPINIRole HCL 1 MG TABLET 3 MG PO (21:04)
[2024-03-15] MEDS: ASPIRIN 81 MG ENTERIC TABLET PO (21:04)
[2024-03-15] MEDS: AMOXICILLIN/CLAVULANATE K 875-125 MG TAB 1 TABLET PO (21:04)
[2024-03-15] MEDS: TAMSULOSIN HCL 0.4 MG CAPSULE PO (21:04)
[2024-03-15] MEDS: VANCOMYCIN 1,500 MG/NS 500 ML BAG 250 MG IVPB (21:05)
[2024-03-15] MEDS: MELATONIN 5 MG TABLET 10 MG PO (21:06)
[2024-03-15 21:30] VITALS: PULSE 58; O2SAT 97
[2024-03-16 04:35] VITALS: BP 142/59; PULSE 56; RESP 20; TEMP 36.6; O2SAT 100
[2024-03-16] MEDS: CENTRAL LINE FLUSH 10 ML IV PUSH ×2 (05:23→11:59)
[2024-03-16] MEDS: rOPINIRole HCL 1 MG TABLET PO ×2 (05:23→08:07)
[2024-03-16] MEDS: LEVOTHYROXINE SODIUM 75 MCG TABLET PO (05:23)
[2024-03-16 05:52] LABS: Basophils Percent Auto 0.8 % (0.2-1.2); Eosinophils Absolute Auto 0.2 K/mm3 (0-0.3); Eosinophils Percent Auto 3.1 % (0-4.4); Hematocrit 34.9 % (42.0-52.0); Hemoglobin 11.8 g/dL (14.0-18.0); Immature Granulocyte Absolute 0.02 K/mm3 (0.00-0.031); Immature Granulocyte Percent A 0.4 % (0-0.5); Lymphocytes Absolute Auto 0.97 K/mm3 (0.9-3.2); Lymphocytes Percent Auto 20.2 % (18.3-44.2); Mean Corpuscular HGB Conc 33.8 g/dl (32-36); Mean Corpuscular Hemoglobin 33.8 pg (26-34); Mean Platelet Volume 10.6 fl (7.4-10.4); Monocytes Absolute Auto 0.5 K/mm3 (0.1-0.6); Monocytes Percent Auto 10.6 % (2.6-8.5); Neutrophils Absolute Auto 3.1 K/mm3 (1.3-6.7); Neutrophils Percent Auto 64.9 % (45.5-73.1); Platelet Count Result 141 k/mm3 (150-375); Red Blood Count 3.49 M/mm3 (4.6-6.20); Red Cell Distribution Width 13.2 % (11.5-14.5); White Blood Count 4.8 K/mm3 (4.5-10.0)
[2024-03-16 05:56] LABS: Alanine Aminotransferase 9 U/L (6-50); Albumin Level 3.5 g/dL (3.5-5.1); Alkaline Phosphatase 121 U/L (38-126); Anion Gap 7 mmol/L (4-12); Aspartate Amino Transferase 18 U/L (17-59); Bilirubin,Total 0.4 mg/dL (0.2-1.3); Blood Urea Nitrogen 15 mg/dL (9-20); Calcium 8.6 mg/dL (8.4-10.2); Carbon Dioxide 29 mmol/L (22-30); Chloride 103 mmol/L (98-107); Estimated CRCL calculation 54 ml/min; Estimated Glomerular Filt Rate > 60; Glucose 83 mg/dL (65-110); Potassium 3.8 mmol/L (3.4-5.0); Sodium 139 mmol/L (137-145)
[2024-03-16] MEDS: UMECLIDINIUM BROMIDE 62.5 MCG ELLIPTA 1 PUFF INHALATION (07:48)
[2024-03-16 07:50] VITALS: PULSE 67; RESP 18
[2024-03-16] MEDS: MIRABEGRON 25 MG ER TABLET PO (08:07)
[2024-03-16] MEDS: AMOXICILLIN/CLAVULANATE K 875-125 MG TAB 1 TABLET PO (08:07)
[2024-03-16] MEDS: IBUPROFEN 600 MG TABLET PO (08:07)
[2024-03-16] MEDS: carBAMazepine 200 MG TABLET PO (08:07)
[2024-03-16] MEDS: BUMETANIDE 1 MG TABLET PO (08:07)
[2024-03-16] MEDS: ENOXAPARIN 40 MG/0.4 ML SYRINGE SUB-Q (08:07)
[2024-03-16] MEDS: ACETAMINOPHEN 500 MG TABLET 1000 MG PO ×2 (08:07→11:59)
[2024-03-16] MEDS: GABAPENTIN 300 MG CAPSULE PO ×2 (08:07→11:59)
[2024-03-16] MEDS: FAMOTIDINE 20 MG TABLET PO (08:07)
[2024-03-16] MEDS: polyethylene glycoL 3350 17 GM POWD.PACK PO (08:08)
[2024-03-16] MEDS: FINASTERIDE 5 MG TABLET PO (08:08)
[2024-03-16] MEDS: CARBIDOPA/LEVODOPA 25/100 MG TABLET 2 TABLET PO ×2 (08:08→11:59)
[2024-03-16] MEDS: predniSONE 2.5 MG TABLET PO (08:08)
[2024-03-16] MEDS: PANTOPRAZOLE 40 MG TABLET PO (08:08)
[2024-03-16] MEDS: VANCOMYCIN 750 MG/NS 250 ML 750 MG/250 ML BAG 250 MG IVPB (08:20)
[2024-03-16 09:32] LABS: Folic Acid 6.3 ng/mL (2.76->20)
--- NOTE | 2024-03-16 11:43 | PM.DS ---
DS: Admitting Diagnosis Discharge Date 03/16/24 Admitting Diagnosis Finger osteomyelitis. DS: Discharge Diagnosis Discharge Diagnosis (1) Finger osteomyelitis, left: Code(s): M86.9 - Osteomyelitis, unspecified Status: Acute (2) Septic arthritis of interphalangeal joint of finger: Code(s): M00.9 - Pyogenic arthritis, unspecified Status: Acute (3) Dementia due to Parkinson's disease: Qualifiers: Dementia behavioral or psychological symptom: without behavioral, psychotic, or mood disturbance or anxiety Dementia severity: mild Qualified Code(s): G20.A1 - Parkinson's disease without dyskinesia, without mention of fluctuations; F02.A0 - Dementia in other diseases classified elsewhere, mild, without behavioral disturbance, psychotic disturbance, mood disturbance, and anxiety Code(s): G20.A1 - Parkinson's disease without dyskinesia, without mention of fluctuations; F02.80 - Dementia in other diseases classified elsewhere, unspecified severity, without behavioral disturbance, psychotic disturbance, mood disturbance, and anxiety Status: Acute (4) BPH (benign prostatic hyperplasia): Qualifiers: Lower urinary tract symptom detail: urinary frequency Lower urinary tract symptom presence: symptoms present Qualified Code(s): N40.1 - Benign prostatic hyperplasia with lower urinary tract symptoms; R35.0 - Frequency of micturition Code(s): N40.0 - Benign prostatic hyperplasia without lower urinary tract symptoms Status: Inactive (5) Urinary incontinence due to benign prostatic hyperplasia: Code(s): N40.1 - Benign prostatic hyperplasia with lower urinary tract symptoms; N39.498 - Other specified urinary incontinence Status: Acute (6) Obstructive sleep apnea: Code(s): G47.33 - Obstructive sleep apnea (adult) (pediatric) Status: Chronic (7) CHF (congestive heart failure): Code(s): I50.9 - Heart failure, unspecified Status: Acute DS: Summary Hospital Course Reason for hospitalization: 84yo male with mild Parkinson's related dementia (recently diagnosed), BPH with urinary incontinence, COPD, CHF, CAD and MADDIE here for recently diagnosed MRSA 3rd distal left middle finger. Patient had a myxoid cyst drained from his left 3rd finger extensor surface just proximal to the nail cuticle by insurance adjuster early in February. Few days later he developed and abscess in the area just lateral to where the cyst had been drained. The area had been I and D x2 without improvement. He was prescribed Bactrim and he was referred to Dr. Galvan. Prior to going to see Dr. Galvan, he ended up in our ER on February 15. Culture obtained at time of I and D grew out MRSA with scant growth. He was given 1 dose of vancomycin and discharged with instructions to continue Bactrim. He followed up with Dr. Galvan (or Dr. Colmenares) who had ordered an MRI of the finger. Prior to the MRI being performed patient's finger became acutely more inflamed and painful. His daughter started to empirically soak his finger in Betadine. She reported that when she would pull his finger out of Betadine it had almost a purulence like material that would drain from it for a day or 2. She did contact Dr. Galvan office who recommended that they follow through with the MRI which they did which demonstrated evidence of osteomyelitis and septic arthritis. Given these imaging findings and the patient's increasing joint pain he came to the ER for evaluation. Please see H&P for details. Hospital Course: Patient was started on vancomycin in the ER. Patient was afebrile and had a normal white count. Hand MRI results done as an outpatient were reviewed. Plastic surgery evaluated the patient and recommended 6 weeks of IV Abx. WBC remained normal. He had a mild macrocytic anemia and B12 level checked and was low end of normal. MMA ordered and B12 was replaced. BCx collected and were negative. Patient's oxybutynin was recently discontinued (about 5 days ago) due to risks of interactions with Aricept that was recently started. Myrbetriq started after discussing with the daughter. She wished to continue to hold the Aricept and she will discuss this with the patient's doctor. The patient fell at home on the and came in for evaluation and was found to have a coccygeal fracture. He worked with PT/OT. Bedside swallow evaluation performed and regular diet with thin liquids recommended. CXR on 03/10 showing no acute cardiopulmonary disease. PICC line was placed successfully. CXR showed tip overlying the SVC and CMG with pulmonary edema vs pneumonitis. He was having a cough but more chronic. No significant weight gain noted. We continued his home Bumex. Bumex 1mg IV extra given daily for 2 days with good UOP. Previous echo reviewed. He was started on Augmentin. He remained on room air. No PND or orthopnea the night prior to discharge. He was compliant with bipap. Suspect likely acute on chronic diastolic CHF vs acute pneumonitis. Vancomycin trough 17. Plan to continue vancomycin 1.5 g IV every 24 hours x 6 weeks with stop date 04/21/2024. Care coordination set up home health/home infusion. He will need serial labs per others as detailed below. ID consult to follow-up as an outpatient basis. Discussed with patient and family. Patient overall did well and was able to be discharged home on 03/13/24. Status at Discharge Cognitive/behavioral status at discharge: stable Time Spent with Patient Time attestation: Total time spent providing and/or coordinating discharge services: 34 minutes Time spent: Greater than 30 minutes Exam Narrative: Patient feels well. Decrease in the redness to the finger. Finger ROM much better with very little pain. No SOB or CP. No PND or orthopnea. Slept well with bipap AF 97.8 142/59 67 18 100% ra Gen - NARD Chest - few bibasilar crackles o/w clear. nml RR CV - RRR S1/S2, JVP 7cm Abd - Soft, NT/ND, Positive BS Ext - No pedal edema Psych - Nml mood and affect Skin - Warm and dry. Left middle finger distal tip with mild erythema and possibly beginning of small pustual. ROM excellent with minimal pain. Joint is swollen but with more definition noted when compared to a picture the dtr has. DS: Data Data Completed and Pending Labs on day of discharge: Labs from last 24 hours 03/16/24 03/16/24 08:15 05:29 WBC 4.8 RBC 3.49 L Hgb 11.8 L Hct 34.9 L MCV 100.0 MCH 33.8 MCHC 33.8 RDW 13.2 Plt Count 141 L MPV 10.6 H Immature Gran % (Auto) 0.4 Neut % (Auto) 64.9 Lymph % (Auto) 20.2 [place] % (Auto) 10.6 H Eos % (Auto) 3.1 Baso % (Auto) 0.8 Lymph # (Auto) 0.97 [place] # (Auto) 0.5 Eos # (Auto) 0.2 Baso # (Auto) 0.0 Abs Immat Gran (auto) 0.02 Absolute Neuts (auto) 3.1 Absolute Nucleated RBC 0.000 Nucleated RBC % 0.0 Sodium 139 Potassium 3.8 Chloride 103 Carbon Dioxide 29 Anion Gap 7 BUN 15 Creatinine 0.80 Estim Creat Clear Calc 54 Estimated GFR > 60 Glucose 83 Calcium 8.6 Magnesium 2.0 Total Bilirubin 0.4 AST 18 ALT 9 Alkaline Phosphatase 121 Total Protein 6.0 L Albumin 3.5 Vitamin B12 245.0 Methylmalonic Acid Pending Folate 6.3 Carbamazepine Pending Discharge Plan Discharge Attending physician on discharge: Holden Oliva Consulting providers: Latasha Greenwood Discharging Clinician: Holden Oliva Anticipated Discharge Date/Time: 03/16/24 12:46 Patient Disposition: Home Health Service Activity: as tolerated Diet: heart healthy Discharge Instructions: Per Care Coordination: [facility] ([phone]) will call to set up initial visit. Alternate solids with liquids when eating. Take small bites with sips. Please complete your antibiotic course even if you are starting to feel well. Continue to wear your CPAP/BiPAP at night and with naps. RN: Routine PICC line care. Take precautions to avoid falls. Rise slowly from a lying or sitting position. Pause before standing or walking. Check daily morning weights after voiding. Call your doctor if you gain more than 3 lb in 2 days or 5 lb in 1 week. Contact your doctor or call 911 and come to the Emergency Room if you have fevers, increasing redness to the finger or tracking into the hand or other worrisome symptoms. Avoid NSAIDs (ibuprofen, naproxen, Aleve). Tylenol is safe to take. You are going home on an IV antibiotic called Vancomycin. This medication is dosed using blood levels. Continue this treatment through 04/18/24. Will need labs weekly on Thursday (CBC, CMP, CRP) Vancomycin trough recommended twice weekly while on IV vancomycin with next trough at: MARCH 18 AT 0700. -- Further dosing changes depending on the blood tests Follow-up with your primary care provider later today as scheduled. Follow-up with Plastic surgery in 1-2 weeks. Please call for an appointment Follow-up with Dr Perez, Infectious Disease doctor in 1-2 weeks. Please call for an appointment. Phone number [phone]. Thank you for using [facility] for your health care needs. Patient Instructions: Antibiotic Form Stand Alone Forms: General Discharge Information Follow-up/Referrals: Latasha Greenwood MD [Physician] - Call for Appointment Junito Pacheco MD [Physician] - Other Discharge Medications: New vancomycin 1.5 gram Recon Soln 1,500 mg IV Q24H Qty: 33 0RF cyanocobalamin (vitamin B-12) [Vitamin B-12] 1,000 mcg Tablet 1,000 mcg PO QAM Qty: 30 0RF amoxicillin-pot clavulanate 875-125 mg tablet 1 tablet PO Q12H Qty: 8 0RF mirabegron [Myrbetriq] 25 mg Tablet Extended Release 24 Hr 25 mg PO DAILY Qty: 30 0RF Continued gabapentin 300 mg capsule 300 mg PO QID tamsulosin 0.4 mg capsule 0.4 mg PO HS albuterol sulfate 90 mcg/actuation HFA aerosol inhaler 1 - 2 puff inhalation Q4-6H PRN (Reason: shortness of breath or wheezing) Qty: 8.5 2RF finasteride 5 mg tablet 5 mg PO DAILY acetaminophen [Tylenol] 325 mg capsule 650 mg PO QPM aspirin [Aspir-Low] 81 mg tablet,delayed release (DR/EC) 81 mg PO QHS bumetanide 1 mg tablet 1 mg PO DAILY carbidopa-levodopa 25-100 mg tablet extended release 2 tablet PO TID nitroglycerin 0.4 mg tablet, sublingual 0.4 mg sublingual PRN PRN (Reason: Chest Pain) prednisone 2.5 mg tablet 2.5 mg PO BID tiotropium bromide [Spiriva with HandiHaler] 18 mcg capsule, w/inhalation device 18 mcg inhalation DAILY Rx Instructions: 18 mcg handihaler, 30 caps, 1 cap by mouth daily (2 puffs) polyethylene glycol 3350 [Miralax] 17 gram Powder In Packet 17 g PO DAILY melatonin 12 mg Tablet 15 mg PO HS PRN (Reason: difficulty sleeping) ropinirole 1 mg tablet 3 mg PO QID Qty: 30 0RF Rx Instructions: 1 at 0830, 1 at 1530, 2 at 2200 acetaminophen [Tylenol Extra Strength] 500 mg tablet 1,000 mg PO TID PRN (Reason: pain) Qty: 30 0RF oxycodone 5 mg tablet 2.5 mg PO Q8H PRN (Reason: pain) Qty: 10 0RF carbamazepine 200 mg tablet 200 mg PO Q12H Qty: 60 1RF pantoprazole 40 mg tablet,delayed release (DR/EC) 40 mg PO BID 90 Days Qty: 180 3RF famotidine 20 mg tablet 20 mg PO BID 90 Days Qty: 180 3RF levothyroxine 75 mcg tablet 75 mcg PO DAILY Qty: 90 2RF Held hydroxychloroquine [Plaquenil] 200 mg tablet 400 mg PO DAILY Qty: 180 1RF donepezil 10 mg tablet 5 mg PO DAILY Rx Instructions: 0.5 pill at night x 1 week, increase to 1 pill nightly after 1 wk. Discontinued oxybutynin chloride 5 mg tablet extended release 24hr 5 mg PO DAILY ibuprofen 600 mg tablet 600 mg PO TID PRN (Reason: pain) Qty: 20 0RF Other Ambulatory Orders: OT Outpatient Eval and Treat (ONCE) Timeframe: 20240427 Location: Determined by Patient Ordered By: Holden Oliva PT Outpatient Eval and Treat (ONCE) Timeframe: 20240427 Location: Determined by Patient Ordered By: Holden Oliva ST / Speech Therapy Outpatient Eval and Treat (ONCE) Timeframe: 20240427 Location: Determined by Patient Ordered By: Holden Oliva Complete Blood Count with Diff (WEEKLY) Timeframe: 20240321 Location: Determined by Patient Ordered By: Holden Oliva Complete Blood Count with Diff (WEEKLY) Timeframe: 20240328 Location: Determined by Patient Ordered By: Holden Oliva Complete Blood Count with Diff (WEEKLY) Timeframe: 20240404 Location: Determined by Patient Ordered By: Holden Oliva Complete Blood Count with Diff (WEEKLY) Timeframe: 20240411 Location: Determined by Patient Ordered By: Holden Oliva Complete Blood Count with Diff (WEEKLY) Timeframe: 20240418 Location: Determined by Patient Ordered By: Holden Oliva Comprehensive Metabolic Panel (WEEKLY) Timeframe: 20240321 Location: Determined by Patient Ordered By: Holden Oliva Comprehensive Metabolic Panel (WEEKLY) Timeframe: 20240328 Location: Determined by Patient Ordered By: Holden Oliva Comprehensive Metabolic Panel (WEEKLY) Timeframe: 20240404 Location: Determined by Patient Ordered By: Holden Oliva Comprehensive Metabolic Panel (WEEKLY) Timeframe: 20240411 Location: Determined by Patient Ordered By: Holden Pj Comprehensive Metabolic Panel (WEEKLY) Timeframe: 20240418 Location: Determined by Patient Ordered By: Holden Pj CRP (WEEKLY) Timeframe: 20240321 Location: Determined by Patient Ordered By: Holden Pj CRP (WEEKLY) Timeframe: 20240328 Location: Determined by Patient Ordered By: Holden Pj CRP (WEEKLY) Timeframe: 20240404 Location: Determined by Patient Ordered By: Holden Pj CRP (WEEKLY) Timeframe: 20240411 Location: Determined by Patient Ordered By: Holden Pj CRP (WEEKLY) Timeframe: 20240418 Location: Determined by Patient Ordered By: Holden Pj Vancomycin Trough (WEEKLY) Timeframe: 20240322 Location: Determined by Patient Ordered By: Holden Pj Vancomycin Trough (WEEKLY) Timeframe: 20240329 Location: Determined by Patient Ordered By: Holden Pj Vancomycin Trough (WEEKLY) Timeframe: 20240405 Location: Determined by Patient Ordered By: Holden Pj Vancomycin Trough (WEEKLY) Timeframe: 20240412 Location: Determined by Patient Ordered By: Holden Pj Vancomycin Trough (WEEKLY) Timeframe: 20240419 Location: Determined by Patient Ordered By: Holden Pj Vancomycin Trough (WEEKLY) Timeframe: 20240318 Location: Determined by Patient Ordered By: Holden Pj Vancomycin Trough (WEEKLY) Timeframe: 20240325 Location: Determined by Patient Ordered By: Holden Pj Vancomycin Trough (WEEKLY) Timeframe: 20240401 Location: Determined by Patient Ordered By: Holden Pj Vancomycin Trough (WEEKLY) Timeframe: 20240408 Location: Determined by Patient Ordered By: Holden Pj Vancomycin Trough (WEEKLY) Timeframe: 20240415 Location: Determined by Patient Ordered By: Holden Pj Date of admission: 03/07/24 17:29 Primary Care Provider: Neyda Ba Admitting Provider: Amy Bryant Attending physician on admission: Amy Bryant Condition: Stable Hospitalist MIPS Heart Failure (Exclusion) Patient has history of Heart Transplant or Left Ventricular Assistive Device?: No IF YES, STOP HERE Heart Failure (Qualifier) Patient has current or prior documentation of LVEF less than or equal to 40%, or mod/servere depressed LVSF?: No IF NO, STOP HERE
[2024-03-16] MEDS: CYANOCOBALAMIN INJ 1,000 MCG/ML VIAL 1000 MCG IM (11:58)
[2024-03-16] MEDS: BUMETANIDE INJ 1 MG/4 ML VIAL IV PUSH (11:59)
[2024-03-21 16:18] LABS: Methylmalonic Acid 706 nmol/L (85-423)
[2024-03-21 19:04] LABS: Carbamazepine Tegretol 5.2 mcg/mL (4.0-12.0)
--- NOTE | 2024-03-23 08:28 | PC.NURSE ---
Faxed MMA and Carbamazepine results to Neyda Ba, TERRI. Dr. Oliva aware of results.
== END 2024-03-16 14:36 | disposition home health service (06) | DRG 539 ==
LOC: ANHED 14:42 → ANH3MEDSUR 16:51
PROVIDERS: Internal Medicine; Registered Nurse; Admitting Provider Family Medicine; Emergency Provider General Practice; PCP Nurse Practitioner Family; Visit Provider Internal Medicine
DX: M86.142 Other acute osteomyelitis, left hand (principal); I50.33 Acute on chronic diastolic (congestive) heart failure; M00.9 Pyogenic arthritis, unspecified; L03.012 Cellulitis of left finger; G20.A1 Parkinson's disease without dyskinesia, without mention of fluctuations; F02.A0 Dementia in other diseases classified elsewhere, mild, without behavioral disturbance, psychotic disturbance, mood disturbance, and anxiety; I11.0 Hypertensive heart disease with heart failure; N40.1 Benign prostatic hyperplasia with lower urinary tract symptoms; R35.0 Frequency of micturition; N39.498 Other specified urinary incontinence; G47.33 Obstructive sleep apnea (adult) (pediatric); I25.10 Atherosclerotic heart disease of native coronary artery without angina pectoris; J98.4 Other disorders of lung; M06.9 Rheumatoid arthritis, unspecified; G25.81 Restless legs syndrome; E03.9 Hypothyroidism, unspecified; Z79.82 Long term (current) use of aspirin; Z90.49 Acquired absence of other specified parts of digestive tract; K21.9 Gastro-esophageal reflux disease without esophagitis; M15.0 Primary generalized (osteo)arthritis; Z96.1 Presence of intraocular lens; M47.816 Spondylosis without myelopathy or radiculopathy, lumbar region; M47.812 Spondylosis without myelopathy or radiculopathy, cervical region; Z87.891 Personal history of nicotine dependence; Z95.1 Presence of aortocoronary bypass graft; Z98.42 Cataract extraction status, left eye; Z98.41 Cataract extraction status, right eye
CPT/HCPCS: 36415; 36569; 71045; 80048; 80053; 80156; 80202; 82565; 82607; 82728; 82746; 83540; 83550; 83605; 83735; 83921; 85025; 85610; 85730; 86140; 87040; 92526; 92610; 94640; 96365; 97165; 99285; A9270; J0696; J1650; J1939; J2003; J3370; J3420

== ENCOUNTER 2024-03-31 14:39 | Outpatient (CLI) | payer MEDICARE, SELFPAY ==
--- NOTE | ~2024-03-31 | XR_ITS ---
CHEST RADIOGRAPH, PA AND LATERAL CLINICAL HISTORY: J81.1 - Chronic pulmonary edema . COMPARISON: 03/10/2024 TECHNIQUE: PA and lateral views of the chest. FINDINGS Sternal wires and mediastinal clips are identified, the wires are midline and intact. The remainder o f the cardiomediastinal silhouette is otherwise unremarkable. The lungs are clear. Visualized osseous structures and soft tissues are unremarkable. IMPRESSION: No focal infiltrate or effusion. Reviewed, dictated and finalized at location A. NING CONSULTANT
== END 2024-03-31 14:40 | disposition home or self-care (01) ==
PROVIDERS: PCP Family Medicine; Visit Provider Nurse Practitioner Adult Health
DX: J81.1 Chronic pulmonary edema (principal)
CPT/HCPCS: 71046

== ENCOUNTER 2024-04-04 13:27 | Outpatient (NON) | payer MEDICARE, SELFPAY ==
[2024-04-04 14:58] LABS: Uric Acid 6.7 mg/dL (3.5-8.5)
== END 2024-04-04 13:28 | disposition home or self-care (01) ==
LOC: HOME HLTH 13:27
PROVIDERS: PCP Family Medicine; Visit Provider Nurse Practitioner Family
DX: M25.40 Effusion, unspecified joint (principal)
CPT/HCPCS: 84550

== ENCOUNTER 2024-04-19 11:44 | Outpatient (CLI) | payer MEDICARE, SELFPAY ==
--- NOTE | ~2024-04-19 | XR_ITS ---
Clinical Indication: Other disorder of lung PA and lateral views of the chest: Comparison: 03/31/2024 Findings: Right-sided PICC line in place. The lungs are clear, without evidence of focal consolidatio n or pleural effusion. Cardiomediastinal silhouette is stable, status post median sternotomy. Bones and soft tissues are unremarkable. Impression: Clear lungs. 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 Right-sided PICC line in place. Reviewed, dictated and finalized at location M. DDED SOFTWARE DEVELOPER Impression: Clear lungs. 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 Right-sided PICC line in place.
== END 2024-04-19 11:45 | disposition home or self-care (01) ==
LOC: MICIMG 11:45
PROVIDERS: PCP Family Medicine; Visit Provider Family Medicine
DX: J98.4 Other disorders of lung (principal); I51.7 Cardiomegaly; Z95.828 Presence of other vascular implants and grafts
CPT/HCPCS: 71046

== ENCOUNTER 2024-05-02 11:19 | Outpatient (RCR) | payer MEDICARE, SELFPAY ==
[2024-03-21 11:08] LABS: Hematocrit 34.5 % (42.0-52.0); Hemoglobin 11.4 g/dL (14.0-18.0); Immature Platelet Fraction Pct 4.8 % (0.9-11.2); Mean Corpuscular Hemoglobin 33.8 pg (26-34); Mean Corpuscular Volume 102.4 fl (80-100); Mean Platelet Volume 11.2 fl (7.4-10.4); Platelet Count Result 131 k/mm3 (150-375); Red Blood Count 3.37 M/mm3 (4.6-6.20); Red Cell Distribution Width 13.8 % (11.5-14.5)
[2024-03-21 11:47] LABS: Erythrocyte Sedimentation Rate 17 mm/hr (0-20)
[2024-03-21 11:48] LABS: Alanine Aminotransferase 7 U/L (6-50); Albumin Level 3.7 g/dL (3.5-5.1); Alkaline Phosphatase 121 U/L (38-126); Anion Gap 5 mmol/L (4-12); Aspartate Amino Transferase 21 U/L (17-59); Bilirubin,Total 0.5 mg/dL (0.2-1.3); Blood Urea Nitrogen 21 mg/dL (9-20); CRP < 0.5 mg/dL (<1.0); Calcium 8.4 mg/dL (8.4-10.2); Carbon Dioxide 30 mmol/L (22-30); Chloride 102 mmol/L (98-107); Estimated Glomerular Filt Rate > 60; Glucose 92 mg/dL (65-110); Potassium 4.2 mmol/L (3.4-5.0); Sodium 137 mmol/L (137-145)
[2024-03-21 11:56] LABS: Vancomycin Trough 12.6 ug/mL (10.0-20.0)
[2024-03-24 11:49] LABS: Vancomycin Trough 15.5 ug/mL (10.0-20.0)
[2024-03-28 10:29] LABS: Hematocrit 35.1 % (42.0-52.0); Hemoglobin 11.7 g/dL (14.0-18.0); Mean Corpuscular HGB Conc 33.3 g/dl (32-36); Mean Platelet Volume 10.6 fl (7.4-10.4); Platelet Count Result 162 k/mm3 (150-375); Red Blood Count 3.44 M/mm3 (4.6-6.20); Red Cell Distribution Width 13.6 % (11.5-14.5); White Blood Count 4.3 K/mm3 (4.5-10.0)
[2024-03-28 11:07] LABS: Erythrocyte Sedimentation Rate 16 mm/hr (0-20)
[2024-03-28 11:39] LABS: Vancomycin Trough 15.9 ug/mL (10.0-20.0)
[2024-03-28 13:08] LABS: Alanine Aminotransferase 6 U/L (6-50); Alkaline Phosphatase 123 U/L (38-126); Anion Gap 7 mmol/L (4-12); Aspartate Amino Transferase 23 U/L (17-59); Bilirubin,Total 0.4 mg/dL (0.2-1.3); Blood Urea Nitrogen 22 mg/dL (9-20); CRP < 0.5 mg/dL (<1.0); Calcium 8.6 mg/dL (8.4-10.2); Carbon Dioxide 28 mmol/L (22-30); Chloride 101 mmol/L (98-107); Estimated Glomerular Filt Rate > 60; Glucose 84 mg/dL (65-110); Potassium 4.1 mmol/L (3.4-5.0); Sodium 136 mmol/L (137-145)
[2024-03-31 10:56] LABS: Vancomycin Trough 16.7 ug/mL (10.0-20.0)
[2024-04-04 14:37] LABS: Hemoglobin 11.6 g/dL (14.0-18.0); Mean Corpuscular HGB Conc 33.1 g/dl (32-36); Mean Corpuscular Volume 102.6 fl (80-100); Mean Platelet Volume 10.9 fl (7.4-10.4); Platelet Count Result 145 k/mm3 (150-375); Red Blood Count 3.41 M/mm3 (4.6-6.20)
[2024-04-04 14:52] LABS: Alanine Aminotransferase 6 U/L (6-50); Alkaline Phosphatase 112 U/L (38-126); Anion Gap 9 mmol/L (4-12); Aspartate Amino Transferase 22 U/L (17-59); Bilirubin,Total 0.6 mg/dL (0.2-1.3); Blood Urea Nitrogen 22 mg/dL (9-20); CRP < 0.5 mg/dL (<1.0); Calcium 8.5 mg/dL (8.4-10.2); Carbon Dioxide 29 mmol/L (22-30); Chloride 102 mmol/L (98-107); Estimated Glomerular Filt Rate > 60; Glucose 66 mg/dL (65-110); Potassium 3.8 mmol/L (3.4-5.0); Sodium 140 mmol/L (137-145)
[2024-04-04 14:55] LABS: Vancomycin Trough 15.1 ug/mL (10.0-20.0)
[2024-04-04 15:42] LABS: Erythrocyte Sedimentation Rate 16 mm/hr (0-20)
[2024-04-08 10:43] LABS: Vancomycin Trough 15.7 ug/mL (10.0-20.0)
[2024-04-11 10:37] LABS: Hematocrit 35.6 % (42.0-52.0); Hemoglobin 11.8 g/dL (14.0-18.0); Mean Corpuscular HGB Conc 33.1 g/dl (32-36); Mean Corpuscular Hemoglobin 33.6 pg (26-34); Mean Corpuscular Volume 101.4 fl (80-100); Mean Platelet Volume 10.5 fl (7.4-10.4); Platelet Count Result 149 k/mm3 (150-375); Red Blood Count 3.51 M/mm3 (4.6-6.20); Red Cell Distribution Width 13.5 % (11.5-14.5); White Blood Count 3.4 K/mm3 (4.5-10.0)
[2024-04-11 10:54] LABS: Albumin Level 4.2 g/dL (3.5-5.1); Alkaline Phosphatase 108 U/L (38-126); Anion Gap 5 mmol/L (4-12); Aspartate Amino Transferase 22 U/L (17-59); Bilirubin,Total 0.5 mg/dL (0.2-1.3); Blood Urea Nitrogen 25 mg/dL (9-20); CRP < 0.5 mg/dL (<1.0); Calcium 8.5 mg/dL (8.4-10.2); Carbon Dioxide 29 mmol/L (22-30); Chloride 106 mmol/L (98-107); Estimated Glomerular Filt Rate > 60; Glucose 81 mg/dL (65-110); Potassium 3.9 mmol/L (3.4-5.0); Sodium 140 mmol/L (137-145)
[2024-04-11 11:10] LABS: Vancomycin Trough 16.4 ug/mL (10.0-20.0)
[2024-04-11 11:29] LABS: Erythrocyte Sedimentation Rate 15 mm/hr (0-20)
[2024-04-11 12:13] LABS: Alanine Aminotransferase < 6 U/L (6-50)
[2024-04-14 13:18] LABS: Vancomycin Trough 16.8 ug/mL (10.0-20.0)
[2024-04-18 11:43] LABS: Hematocrit 34.3 % (42.0-52.0); Hemoglobin 11.6 g/dL (14.0-18.0); Mean Corpuscular HGB Conc 33.8 g/dl (32-36); Mean Corpuscular Hemoglobin 34.3 pg (26-34); Mean Corpuscular Volume 101.5 fl (80-100); Mean Platelet Volume 10.9 fl (7.4-10.4); Platelet Count Result 151 k/mm3 (150-375); Red Blood Count 3.38 M/mm3 (4.6-6.20); Red Cell Distribution Width 13.5 % (11.5-14.5); White Blood Count 3.7 K/mm3 (4.5-10.0)
[2024-04-18 11:52] LABS: Alkaline Phosphatase 103 U/L (38-126); Anion Gap 6 mmol/L (4-12); Aspartate Amino Transferase 24 U/L (17-59); Bilirubin,Total 0.5 mg/dL (0.2-1.3); Blood Urea Nitrogen 25 mg/dL (9-20); CRP < 0.5 mg/dL (<1.0); Calcium 8.7 mg/dL (8.4-10.2); Carbon Dioxide 28 mmol/L (22-30); Chloride 105 mmol/L (98-107); Estimated Glomerular Filt Rate > 60; Glucose 70 mg/dL (65-110); Potassium 3.9 mmol/L (3.4-5.0); Sodium 139 mmol/L (137-145)
[2024-04-18 12:08] LABS: Vancomycin Trough 14.3 ug/mL (10.0-20.0)
[2024-04-18 12:24] LABS: Erythrocyte Sedimentation Rate 15 mm/hr (0-20)
[2024-04-18 13:06] LABS: Alanine Aminotransferase < 6 U/L (6-50)
[2024-04-21 11:09] LABS: Vancomycin Trough 15.2 ug/mL (10.0-20.0)
[2024-04-25 11:45] LABS: Mean Corpuscular HGB Conc 33.3 g/dl (32-36); Mean Corpuscular Hemoglobin 33.9 pg (26-34); Mean Corpuscular Volume 101.7 fl (80-100); Mean Platelet Volume 10.8 fl (7.4-10.4); Platelet Count Result 156 k/mm3 (150-375); Red Blood Count 3.54 M/mm3 (4.6-6.20)
[2024-04-25 12:12] LABS: Alanine Aminotransferase 6 U/L (6-50); Albumin Level 4.1 g/dL (3.5-5.1); Alkaline Phosphatase 116 U/L (38-126); Anion Gap 4 mmol/L (4-12); Aspartate Amino Transferase 29 U/L (17-59); Bilirubin,Total 0.5 mg/dL (0.2-1.3); Blood Urea Nitrogen 26 mg/dL (9-20); CRP 0.7 mg/dL (<1.0); Calcium 8.7 mg/dL (8.4-10.2); Carbon Dioxide 29 mmol/L (22-30); Chloride 106 mmol/L (98-107); Estimated Glomerular Filt Rate > 60; Glucose 82 mg/dL (65-110); Potassium 4.4 mmol/L (3.4-5.0); Sodium 139 mmol/L (137-145)
[2024-04-25 12:15] LABS: Erythrocyte Sedimentation Rate 16 mm/hr (0-20)
[2024-04-25 12:16] LABS: Vancomycin Trough 5.2 ug/mL (10.0-20.0)
[2024-04-25 13:24] LABS: Gentamicin Trough 2.3 ug/mL (<1.0)
[2024-04-28 12:20] LABS: Vancomycin Trough < 5.0 ug/mL (10.0-20.0)
[2024-04-28 12:24] LABS: Gentamicin Trough 2.3 ug/mL (<1.0)
[2024-05-02 12:03] LABS: Hematocrit 36.5 % (42.0-52.0); Hemoglobin 12.1 g/dL (14.0-18.0); Mean Corpuscular HGB Conc 33.2 g/dl (32-36); Mean Corpuscular Hemoglobin 33.5 pg (26-34); Mean Corpuscular Volume 101.1 fl (80-100); Mean Platelet Volume 11.3 fl (7.4-10.4); Platelet Count Result 163 k/mm3 (150-375); Red Blood Count 3.61 M/mm3 (4.6-6.20); Red Cell Distribution Width 12.8 % (11.5-14.5); White Blood Count 5.8 K/mm3 (4.5-10.0)
[2024-05-02 12:22] LABS: Albumin Level 4.1 g/dL (3.5-5.1); Alkaline Phosphatase 117 U/L (38-126); Anion Gap 6 mmol/L (4-12); Aspartate Amino Transferase 23 U/L (17-59); Bilirubin,Total 0.5 mg/dL (0.2-1.3); Blood Urea Nitrogen 26 mg/dL (9-20); CRP 1.1 mg/dL (<1.0); Calcium 8.7 mg/dL (8.4-10.2); Carbon Dioxide 26 mmol/L (22-30); Chloride 105 mmol/L (98-107); Estimated Glomerular Filt Rate > 60; Glucose 77 mg/dL (65-110); Potassium 4.4 mmol/L (3.4-5.0); Sodium 137 mmol/L (137-145)
[2024-05-02 12:40] LABS: Alanine Aminotransferase < 6 U/L (6-50)
[2024-05-02 12:49] LABS: Erythrocyte Sedimentation Rate 17 mm/hr (0-20)
[2024-05-02 13:55] LABS: Vancomycin Trough < 5.0 ug/mL (10.0-20.0)
[2024-05-02 15:38] LABS: Gentamicin Trough 1.4 ug/mL (<1.0)
== END 2024-06-19 23:59 | disposition home or self-care (01) ==
LOC: HOME HLTH 11:19
PROVIDERS: Internal Medicine; PCP Nurse Practitioner Family; Visit Provider Family Medicine
DX: M00.9 Pyogenic arthritis, unspecified (principal); M86.9 Osteomyelitis, unspecified; F02.A0 Dementia in other diseases classified elsewhere, mild, without behavioral disturbance, psychotic disturbance, mood disturbance, and anxiety; G20.A1 Parkinson's disease without dyskinesia, without mention of fluctuations
CPT/HCPCS: 80053; 80170; 80202; 84550; 85027; 85055; 85652; 86140

== ENCOUNTER 2024-05-05 10:23 | Outpatient (RCR) | payer MEDICARE, SELFPAY ==
[2024-05-05 11:57] LABS: Gentamicin Trough 1.6 ug/mL (<1.0)
== END 2024-08-03 23:59 | disposition home or self-care (01) ==
LOC: HOME HLTH 10:23
PROVIDERS: PCP Family Medicine; Visit Provider Family Medicine
DX: M86.142 Other acute osteomyelitis, left hand (principal)
CPT/HCPCS: 80170

== ENCOUNTER 2024-06-01 13:38 | Outpatient (CLI) | payer MEDICARE, SELFPAY ==
--- NOTE | ~2024-06-01 | MR_ITS ---
EXAMINATION: MR hand LT wo/w con DATE: 06/01/2024 15:38 INDICATION: Osteomyelitis TECHNIQUE: Magnetic resonance imaging (MRI) of the left hand was performed without and with 15 mL Mul tihance intravenous contrast. [id number] includes the digits and distal portions of the metacarpal s but excludes the carpus. Sequences included axial, sagittal and coronal T1-weighted FSE and T2-weig hted FS FSE, axial T1-weighted FS FSE and post contrast axial, sagittal and coronal T1-weighted FS FS E. COMPARISON: MRI dated 03/07/2024 and radiographs dated 02/16/2024 FINDINGS: There is ostial lysis involving the head of the third middle phalanx and base of the distal phalanx w hich is new since the prior study which along with persistent associated loss of T1 hyperintense michelle ow fat signal with increased T2 signal is consistent with ongoing progression of now chronic osteomye litis. Otherwise normal marrow signal throughout the remainder of the visualized bones. No fracture. Mild osteoarthritis at a few of the interphalangeal joints with distal predominance. There is thicken ing and mild increased signal of the third digit flexor digitorum profundus tendon at the level of th e distal half of the third middle phalanx consistent with tendinopathy but without discrete tendon te ar. The collateral ligament complex at the metacarpophalangeal and interphalangeal joints appear norm al. No joint effusions, abscess or other abnormal fluid collections. IMPRESSION: 1. Persistent abnormal signal at the base of the third distal phalanx and head of the middle phalanx both with progression of associated ostial lysis consistent with ongoing progression of now chronic o steomyelitis. 2. Mild tendinopathy without discrete tear at the distal flexor digitorum profundus tendon of the thi rd digit. Reviewed, dictated and finalized at location A. IVING MANAGER IMPRESSION: 1. Persistent abnormal signal at the base of the third distal phalanx and head of the middle phalanx both with progression of associated ostial lysis consiste nt with ongoing progression of now chronic osteomyelitis. 2. Mild tendinopathy without discrete tear at the distal flexor digitorum profu ndus tendon of the third digit.
--- OUTSIDE RECORDS SUMMARY | 2024-06-03 01:23 | XMS_ITS | Clinical Summary ---
Author Organization [facility] [employer] | Anywhere Address [address] [place] [address] Care Team Providers Care Systems Test Technician Name Role Phone Mateus Johnson DO Primary Care Provider [phone] Source Comments [facility] [employer] | Anywhere,non-owned Affiliates and Associated Physician Practices is amultiple site organization consisting of ambulatory clinics and hospital sitesin [place], [place], [place] and [place]. This disclosure is being madepursuant to the Care Everywhere program and may not contain all information available regarding this patient. Last updated 18.[facility] [employer] | Anywhere Allergies Active Allergy Reactions Criticality Noted Date Comments Abatacept Other Low 04/22/2019 Face flushing Face flushing Morphine Unknown 12/29/2019 Medications * Be aware that medications may not be up to date on this document. Alwaysverify current medications with the patient. Medication Sig Dispensed Refills Start Date End Date Status albuterol HFA (PROVENTIL;VENT GINI;PROAIR) 108 (90 Base) MCG/ACT inhaler Inhale 2 puffs by mouth every 6 hours as needed Active hydroxychloroqu ine (PLAQUENIL) 200 MG tablet Take 400 mg by mouth once daily Active tamsulosin (FLOMAX) 0.4 MG capsule Take 0.4 mg by mouth at bedtime 0 Active carbidopa-levod opa (Sinemet) 25-100 MG tablet Take 2 (two) tablets by mouth 3 times daily 4 Active aspirin (Aspirin) 81 MG chew tablet Take 1 (one) tablet by mouth once daily 30 tablet 5 Active carBAMazepine (TEGretol) 200 MG tablet Take 1 (one) tablet by mouth 2 times daily with morning and evening meal 60 tablet 5 Active doxycycline hyclate 100 MG tablet Take 1 (one) tablet by mouth 2 times daily for 21 days 42 tablet 5 06/03/19 25 Active pantoprazole EC (Protonix) 40 MG tablet Take 1 (one) tablet by mouth once daily 30 tablet 5 Active rOPINIRole (Requip) 1 MG tablet Take 1.5 (one and one-half) tablets by mouth every 8 hours 135 tablet 5 Active rosuvastatin (Crestor) 20 MG tablet Take 1 (one) tablet by mouth once daily 30 tablet 5 Active gabapentin (Neurontin) 300 MG capsule Take 1 (one) capsule by mouth at bedtime 30 capsule 5 Active levothyroxine (Synthroid) 50 MCG tablet Take 1.5 (one and one-half) tablets by mouth daily before breakfast 45 tablet 5 Active carBAMazepine (TEGRETOL) 200 MG tablet Take 200 mg by mouth 05/13/19 25 Discontinued gabapentin (NEURONTIN) 300 MG capsule Take 300 mg by mouth 0 05/13/19 25 Discontinued levothyroxine (SYNTHROID) 50 MCG tablet levothyroxine 50 mcg tablet TAKE 1 TABLET BY MOUTH ONCE DAILY 05/13/19 25 Discontinued pantoprazole EC (PROTONIX) 40 MG tablet pantoprazole 40 mg tablet,delayed release TAKE 1 TABLET BY MOUTH TWICE DAILY 05/13/19 25 Discontinued rOPINIRole (REQUIP) 1 MG tablet Take 1.5 tabs q 7 hours 0 05/13/19 25 Discontinued aspirin (Aspirin) 81 MG chew tablet Chew 1 (one) tablet by mouth once daily 30 tablet 5 05/13/19 25 Discontinued carBAMazepine (TEGretol) 200 MG tablet Take 1 (one) tablet by mouth 2 times daily with morning and evening meal 60 tablet 5 05/13/19 25 Discontinued gabapentin (Neurontin) 100 MG capsule Take 2 (two) capsules by mouth 3 times daily 180 capsule 5 05/13/19 25 Discontinued levothyroxine (Synthroid) 50 MCG tablet Take 1.5 (one and one-half) tablets by mouth daily before breakfast 45 tablet 5 05/13/19 25 Discontinued rosuvastatin (Crestor) 20 MG tablet Take 1 (one) tablet by mouth once daily 30 tablet 5 05/13/19 25 Discontinued doxycycline hyclate 100 MG tablet Take 1 (one) tablet by mouth 2 times daily for 21 days 42 tablet 5 05/13/19 25 Discontinued gabapentin (Neurontin) 300 MG capsule Take 1 (one) capsule by mouth at bedtime 30 capsule 5 05/13/19 25 Discontinued Active Problems Problem Noted Date Diagnosed Date Osteoarthritis of left index finger 05/12/2024 Encounters Date Type Department Care Team Description 05/12/2024 5:27 PM EGG PASTEURIZER - 05/13/2024 3:00 PM EGG PASTEURIZER Hospital Encounter [address] [id number] Norman Hamilton MD Qazi, MD Jadiel Stiles Ahsan, MD Kang, MD Nelsy Hospitalist Discharge Disposition: Home or Self Care from Last 3 Months Social History Tobacco Use Types Packs/Day Years Used Date Smoking Tobacco: Never Assessed Sex and Gender Information Value Date Recorded Sex Assigned at Not on file Gender Identity Not on file Sexual Orientation Not on file Last Filed Vital Signs Vital Sign Reading Time Taken Comments Blood Pressure 132/63 05/13/2024 9:50 AM EGG PASTEURIZER Pulse 55 05/13/2024 9:50 AM EGG PASTEURIZER Temperature 36.3 ??C (97.3 ??F) 05/13/2024 9:50 AM CS T Respiratory Rate 18 05/13/2024 9:50 AM EGG PASTEURIZER Oxygen Saturation 98% 05/13/2024 9:50 AM EGG PASTEURIZER Inhaled Oxygen Concentration - - Weight 82.1 kg (181 lb) 05/13/2024 4:36 AM EGG PASTEURIZER Height 157.5 cm (5' 2 ) 05/13/2024 4:36 AM EGG PASTEURIZER Body Mass Index 33.11 05/13/2024 4:36 AM EGG PASTEURIZER Plan of Treatment Health Maintenance Due Date Last Done Comments MEDICARE AWV ? 12 MONTHS 1940 DTAP/TDAP/TD VACCINES (1 - Tdap) 1957 PNEUMOCOCCAL VACCINE 50+ (1 of 2 - PCV) 1957 ZOSTER VACCINE (1 of 2) 02/07/1988 Respiratory Syncytial Virus (RSV) Vaccine Pt: or over 60 yrs (1 - 1-dose 75+ series) 2013 COVID-19 VACCINE (4 - season) 2024 12/29/2020, 07/30/2020, 06/28/2020 INFLUENZA VACCINE (#1) 2024 , 02/01/2019, 02/08/2018, Additional history exists DEPRESSION SCREENING 05/11/2024 HEPATITIS B VACCINE Aged Out No longe r eligible based on patient's age to complete this topic HIB VACCINE Aged Out No longer eligi ble based on patient's age to complete this topic HPV VACCINE Aged Out No longer eligi ble based on patient's age to complete this topic MENINGOCOCCAL (Group B) VACCINE Aged Out No longer eligible based on patient's age to complete this topic MENINGOCOCCAL VACCINE Aged Out No sonal temitope eligible based on patient's age to complete this topic Procedures Procedure Name Priority Date/Time Associated Diagnosis Comments CBC W AUTO DIFFERENTIAL AM Draw 05/13/2024 4:16 AM EGG PASTEURIZER RENAL FUNCTION PANEL AM Draw 05/13/2024 4:16 AM EGG PASTEURIZER TSH REFLEX FREE T4 Routine 05/13/2024 4: 16 AM EGG PASTEURIZER LIPID PROFILE AM Draw 05/13/2024 4:16 AM EGG PASTEURIZER CBC W AUTO DIFFERENTIAL Routine 05/12/2024 7:37 PM EGG PASTEURIZER XR HAND LEFT 3VW OR MORE Routine 05/12/2024 7:21 PM EGG PASTEURIZER Osteoarthritis of left index finger ERYTHROCYTE SEDIMENTATION RATE Routine 05/12/2024 6:34 PM EGG PASTEURIZER CBC W AUTO DIFFERENTIAL STAT 05/12/2024 6:21 PM EGG PASTEURIZER CULTURE BLOOD Timed 05/12/2024 6:12 PM EGG PASTEURIZER C-REACTIVE PROTEIN Routine 05/12/2024 6: 08 PM EGG PASTEURIZER PHOSPHORUS BLOOD Routine 05/12/2024 6:08 PM EGG PASTEURIZER MAGNESIUM BLOOD Routine 05/12/2024 6:08 PM EGG PASTEURIZER COMPREHENSIVE METABOLIC PANEL STAT 05/12/2024 6:08 PM EGG PASTEURIZER CULTURE BLOOD Timed 05/12/2024 6:08 PM EGG PASTEURIZER from Last 3 Months Results * TSH REFLEX FREE T4 (05/13/2024 4:16 AM EGG PASTEURIZER) TSH 2.053 0.350 - 4.940 uIU/mL 05/13/2024 5:02 AM EGG PASTEURIZER [facility] Blood BLOOD SPECIMEN / Unknown Lab Venipuncture / Unknown 05/13/2024 4:16 AM EGG PASTEURIZER 05/13/2024 4:23 AM EGG PASTEURIZER Go Stacy MD LAB - CHEMISTRY SHAHID HASSAN [facility] Organization Address City/State/[facility] Co de Phone Number [facility] [address] [place] [address] * (ABNORMAL) CBC W AUTO DIFFERENTIAL (05/13/2024 4:16 AM EGG PASTEURIZER) Only the most recent of3 resultswithin the time period is included. WBC 4.6 4.0 - 10.7 x10E9/L 05/13/2024 4:30 AM EGG PASTEURIZER [facility] RBC Count 3.71(L) 4.30 - 5.80 x10E12/L 05/13/2024 4:30 AM EGG PASTEURIZER [facility] Hemoglobin 12.4(L) 13.3 - 17.5 g/dL 05/13/2024 4:30 AM EGG PASTEURIZER [facility] Hematocrit 36.6(L) 38.7 - 51.1 % 05/13/2024 4:30 AM [facility] MCV 98.7(H) 80.0 - 98.0 fL 05/13/2024 4:30 AM [facility] MCH 33.4 26.7 - 33.6 pg 05/13/2024 4:30 AM [facility] MCHC 33.9 31.7 - 36.3 g/dL 05/13/2024 4:30 AM [facility] RDW-CV 12.5 11.3 - 14.8 % 05/13/2024 4:30 AM [facility] Platelet Count 158 150 - 420 x10E9/L 05/13/2024 4:30 AM [facility] MPV 10.0 7.8 - 11.4 fL 05/13/2024 4:30 AM [facility] Neutrophil % 56.6 41.0 - 74.0 % 05/13/2024 4:30 AM [facility] Lymphocyte % 23.5 17.0 - 47.0 % 05/13/2024 4:30 AM [facility] Monocyte % 14.7(H) 3.0 - 11.0 % 05/13/2024 4:30 AM [facility] Eosinophil % 3.5 0.0 - 7.0 % 05/13/2024 4:30 AM [facility] Basophil % 1.3 0.0 - 1.6 % 05/13/2024 4:30 AM [facility] Immature Granulocytes % 0.4 0.0 - 1.0 % 05/13/2024 4:30 AM [facility] Neutrophil Absolute 2.57 1.60 - 7.50 x10E9/L 05/13/2024 4:30 AM [facility] Lymphocyte Absolute 1.07 1.00 - 4.40 x10E9/L 05/13/2024 4:30 AM [facility] Monocyte Absolute 0.67 0.15 - 1.00 x10E9/L 05/13/2024 4:30 AM [facility] Eosinophil Absolute 0.16 0.00 - 0.60 x10E9/L 05/13/2024 4:30 AM [facility] Basophil Absolute 0.06 0.00 - 0.13 x10E9/L 05/13/2024 4:30 AM [facility] Blood BLOOD SPECIMEN / Unknown Lab Venipuncture / Unknown 05/13/2024 4:16 AM EGG PASTEURIZER 05/13/2024 4:23 AM EGG PASTEURIZER Go Stacy MD LAB - HEMATOLOGY ORD ERABLES [facility] [address] [place] [address] * (ABNORMAL) RENAL FUNCTION PANEL (05/13/2024 4:16 AM [facility]) Glucose 86 70 - 99 mg/dL 05/13/2024 4:47 AM [facility] Sodium 138 136 - 145 mmol/L 05/13/2024 4:47 AM [facility] Potassium 4.7 3.5 - 5.1 mmol/L 05/13/2024 4:47 AM [facility] Chloride 109(H) 98 - 107 mmol/L 05/13/2024 4:47 AM [facility] CO2 25 22 - 29 mmol/L 05/13/2024 4:47 AM [facility] Calcium 8.8 8.4 - 10.4 mg/dL 05/13/2024 4:47 AM [facility] Anion Gap 4(L) 6 - 16 mmol/L 05/13/2024 4:47 AM [facility] BUN 26 7 - 26 mg/dL 05/13/2024 4:47 AM [facility] Creatinine 1.25 0.72 - 1.25 mg/dL 05/13/2024 4:47 AM [facility] Albumin 3.6 3.4 - 5.0 gm/dL 05/13/2024 4:47 AM [facility] Phosphorus 3.4 2.5 - 4.5 mg/dL 05/13/2024 4:47 AM [facility] eGFR by CKD-EPI 56(L) >=90 mL/min/1.7 3 m2 05/13/2024 4:47 AM [facility] Blood BLOOD SPECIMEN / Unknown Lab Venipuncture / Unknown 05/13/2024 4:16 AM EGG PASTEURIZER 05/13/2024 4:23 AM EGG PASTEURIZER Go Stacy MD LAB - CHEMISTRY SHAHID HASSAN Performing Organization Address City/[facility]/ZIP Co de Phone Number [facility] [address] [place] [address] * LIPID PROFILE (05/13/2024 4:16 AM EGG PASTEURIZER) Cholesterol 162 <200 mg/dL 05/13/2024 4:47 AM EGG PASTEURIZER [facility] Triglycerides 85 <150 mg/dL 05/13/2024 4:47 AM EGG PASTEURIZER [facility] HDL Cholesterol 59 >40 mg/dL 4:47 AM EGG PASTEURIZER [facility] LDL Calculated 86 <130 mg/dL 05/13/2024 4:47 AM EGG PASTEURIZER [facility] VLDL Calculated 17 <=30 mg/dL 4:47 AM EGG PASTEURIZER [facility] Chol HDL Ratio 2.7 <4.5 05/13/2024 4:47 AM EGG PASTEURIZER [facility] LDL/HDL Ratio 1.5 <5.0 05/13/2024 4:47 AM [facility] Blood BLOOD SPECIMEN / Unknown Lab Venipuncture / Unknown 05/13/2024 4:16 AM EGG PASTEURIZER 05/13/2024 4:23 AM EGG PASTEURIZER Go Stacy MD LAB - CHEMISTRY SHAHID HASSAN [facility] [address] [place] [address] * XR Hand Left 3Vw or More (05/12/2024 7:21 PM EGG PASTEURIZER) Anatomical Region Laterality Modality Wrist / Hand Radiographic Torri ging 05/12/2024 8:39 PM EGG PASTEURIZER Narrative 05/12/2024 8:40 PM EGG PASTEURIZER PROCEDURE: ??XR HAND LEFT 3VW OR MORE DATE/TIME OF EXAM: ??05/12/2024 7:21 PM CLINICAL INFORMATION: None relevant/not provided if blank. 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 This appears advanced compared with the previous study. No acute fracture seen. No dislocation is seen. Soft tissues appear unremarkable. > Interpreting Provider: Jeff Cervantes MD on 05/12/2024 8:40 PM Procedure Note Jeff Cervantes MD - 05/12/2024 PROCEDURE: XR HAND LEFT 3VW OR MORE DATE/TIME OF EXAM: 05/12/2024 7:21 PM CLINICAL INFORMATION: None relevant/not provided if blank. 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 This appears advanced compared with the previous study. No acute fracture seen. No dislocationis seen. Soft tissues appear unremarkable. > Interpreting Provider: Jeff Cervantes MD on 05/12/2024 8:40 PM Go Stacy MD DIAGNOSTIC IMAGING O RDERABLES * ERYTHROCYTE SEDIMENTATION RATE (05/12/2024 6:34 PM EGG PASTEURIZER) Erythrocyte Sedimentation Rate Automated 7 0 - 20 MM/HR 05/12/2024 6:34 PM EGG PASTEURIZER [facility] Blood BLOOD SPECIMEN / Unknown Lab Venipuncture / Unknown 05/12/2024 6:16 PM EGG PASTEURIZER Go Stacy MD LAB - HEMATOLOGY ORD ERABLES Performing Organization Address City/[facility] Co or Phone Number [facility] [address] [place] [address] * CULTURE BLOOD (05/12/2024 6:12 PM EGG PASTEURIZER) Only the most recent of2 resultswithin the time period is included. Culture No growth day 5 RONNY 05/17/2024 10:31 PM EGG PASTEURIZER [facility] MICROBIOLOGY Blood PERIPHERAL BLOOD / Unknown Lab Venipuncture / Unknown 05/12/2024 6:12 PM EGG PASTEURIZER 05/12/2024 6:17 PM EGG PASTEURIZER Go Stacy MD LAB - MICROBIOLOGY O RDERABLES [facility] MICROBIOLOG[facility] [address] [place] [phone] * C-REACTIVE PROTEIN (05/12/2024 6:08 PM EGG PASTEURIZER) Pathologist [facility] C-Reactive Protein 0.22 <=0.50 mg/dL 05/12/2024 6:35 PM EGG PASTEURIZER [facility] Blood BLOOD SPECIMEN / Unknown Lab Venipuncture / Unknown 05/12/2024 6:08 PM EGG PASTEURIZER 05/12/2024 6:16 PM EGG PASTEURIZER Go Stacy MD LAB - CHEMISTRY SHAHID HASSAN [facility] [address] [place] [address] * (ABNORMAL) COMPREHENSIVE METABOLIC PANEL (05/12/2024 6:08 PM EGG PASTEURIZER) Pathologist [facility] Glucose 89 70 - 99 mg/dL 05/12/2024 6:37 PM [facility] Sodium 139 136 - 145 mmol/L 05/12/2024 6:37 PM [facility] Potassium 4.7 3.5 - 5.1 mmol/L 05/12/2024 6:37 PM [facility] Chloride 108(H) 98 - 107 mmol/L 05/12/2024 6:37 PM [facility] CO2 23 22 - 29 mmol/L 05/12/2024 6:37 PM [facility] Calcium 9.0 8.4 - 10.4 mg/dL 05/12/2024 6:37 PM [facility] Anion Gap 8 6 - 16 mmol/L 05/12/2024 6:37 PM [facility] BUN 28(H) 7 - 26 mg/dL 05/12/2024 6:37 PM [facility] Creatinine 1.28(H) 0.72 - 1.25 mg/dL 05/12/2024 6:37 PM [facility] Alkaline Phosphatase 134 40 - 150 U/L 05/12/2024 6:37 PM [facility] ALT <6 0 - 55 U/L 05/12/2024 6:37 PM [facility] AST 15 5 - 34 U/L 05/12/2024 6:37 PM EGG PASTEURIZER [facility] Protein Total 7.3 6.4 - 8.3 gm/dL 05/12/2024 6:37 PM EGG PASTEURIZER [facility] Albumin 4.0 3.4 - 5.0 gm/dL 05/12/2024 6:37 PM EGG PASTEURIZER [facility] Bilirubin Total 0.3 0.2 - 1.2 mg/dL 05/12/2024 6:37 PM EGG PASTEURIZER [facility] eGFR by CKD-EPI 55(L) >=90 mL/min/1.7 3 m2 05/12/2024 6:37 PM EGG PASTEURIZER [facility] Blood BLOOD SPECIMEN / Unknown Lab Venipuncture / Unknown 05/12/2024 6:08 PM EGG PASTEURIZER 05/12/2024 6:16 PM EGG PASTEURIZER Go Stacy MD LAB - CHEMISTRY SHAHID HASSAN Performing Organization Address City/[facility]/ZIP Co de Phone Number [facility] [address] [place], [place] [id number] * PHOSPHORUS BLOOD (05/12/2024 6:08 PM EGG PASTEURIZER) Phosphorus 3.2 2.5 - 4.5 mg/dL 05/12/2024 6:35 PM EGG PASTEURIZER [facility] Blood BLOOD SPECIMEN / Unknown Lab Venipuncture / Unknown 05/12/2024 6:08 PM EGG PASTEURIZER 05/12/2024 6:16 PM EGG PASTEURIZER Go Stacy MD LAB - CHEMISTRY SHAHID HASSAN [facility] [address] [place] [id number] * MAGNESIUM BLOOD (05/12/2024 6:08 PM EGG PASTEURIZER) Magnesium 2.2 1.6 - 2.6 mg/dL 05/12/2024 6:35 PM EGG PASTEURIZER [facility] Blood BLOOD SPECIMEN / Unknown Lab Venipuncture / Unknown 05/12/2024 6:08 PM EGG PASTEURIZER 05/12/2024 6:16 PM EGG PASTEURIZER Go Stacy MD LAB - CHEMISTRY SHAHID HASSAN [facility] [address] [place] [address] from Last 3 Months Advance Directives Documents on File Type Date 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
--- OUTSIDE RECORDS SUMMARY | 2024-06-03 01:23 | XMS_ITS | Referral Summary ---
Author Organization [facility] Address [address] [place] [address] Care Team Providers Care Sexual Health Physician Name Role Phone Mateus Johnson Primary Care Provider [phone] Source Comments [facility],non-owned Affiliates and Associated Physician Practices is amultiple site organization consisting of ambulatory clinics and hospital sitesin [place], [place], [place] and [place]. This disclosure is being madepursuant to the Care Everywhere program and may not contain all information available regarding this patient. Last updated 18.[facility] Encounters Date Type Department Care Team Description 05/12/2024 5:27 PM MAJOR GIFTS MANAGER - 05/13/2024 3:00 PM MAJOR GIFTS MANAGER Hospital Encounter 1E Surg - [facility] [address] [place] [address] Norman Hamilton MD Qazi, Mohsin, MD Usman, Ahsan, MD Kang, Ayesha, MD Hospitalist Discharge Disposition: Home or Self Care from Last 3 Months Allergies Active Allergy Reactions Criticality Noted Date [...] Date Osteoarthritis of left index finger 05/12/2024 Social History Tobacco Use Types Packs/Day Years Used Date Smoking Tobacco: Never Assessed Sex and Gender Information Value Date Recorded Sex Assigned at Not on file Gender Identity Not on file Sexual Orientation Not on file Last Filed Vital Signs Vital Sign Reading Time Taken Comments Blood Pressure 132/63 05/13/2024 9:50 AM MAJOR GIFTS MANAGER Pulse 55 05/13/2024 9:50 AM MAJOR GIFTS MANAGER Temperature 36.3 ??C (97.3 ??F) 05/13/2024 9:50 AM CS T Respiratory Rate 18 05/13/2024 9:50 AM MAJOR GIFTS MANAGER Oxygen Saturation 98% 05/13/2024 9:50 AM MAJOR GIFTS MANAGER Inhaled Oxygen Concentration - - Weight 82.1 kg (181 lb) 05/13/2024 4:36 AM MAJOR GIFTS MANAGER Height 157.5 cm (5' 2 ) 05/13/2024 4:36 AM MAJOR GIFTS MANAGER Body Mass Index 33.11 05/13/2024 4:36 AM MAJOR GIFTS MANAGER Plan of Treatment Not on file Procedures Procedure Name Priority Date/Time Associated Diagnosis Comments CBC W AUTO DIFFERENTIAL AM Draw 05/13/2024 4:16 AM MAJOR GIFTS MANAGER RENAL FUNCTION PANEL AM Draw 05/13/2024 4:16 AM MAJOR GIFTS MANAGER TSH REFLEX FREE T4 Routine 05/13/2024 4: 16 AM MAJOR GIFTS MANAGER LIPID PROFILE AM Draw 05/13/2024 4:16 AM MAJOR GIFTS MANAGER CBC W AUTO DIFFERENTIAL Routine 05/12/2024 7:37 PM MAJOR GIFTS MANAGER XR HAND LEFT 3VW OR MORE Routine 05/12/2024 7:21 PM MAJOR GIFTS MANAGER Osteoarthritis of left index finger ERYTHROCYTE SEDIMENTATION RATE Routine 05/12/2024 6:34 PM MAJOR GIFTS MANAGER CBC W AUTO DIFFERENTIAL STAT 05/12/2024 6:21 PM MAJOR GIFTS MANAGER CULTURE BLOOD Timed 05/12/2024 6:12 PM MAJOR GIFTS MANAGER C-REACTIVE PROTEIN Routine 05/12/2024 6: 08 PM MAJOR GIFTS MANAGER PHOSPHORUS BLOOD Routine 05/12/2024 6:08 PM MAJOR GIFTS MANAGER MAGNESIUM BLOOD Routine 05/12/2024 6:08 PM MAJOR GIFTS MANAGER COMPREHENSIVE METABOLIC PANEL STAT 05/12/2024 6:08 PM MAJOR GIFTS MANAGER CULTURE BLOOD Timed 05/12/2024 6:08 PM MAJOR GIFTS MANAGER from Last 3 Months Results * TSH REFLEX FREE T4 (05/13/2024 4:16 AM MAJOR GIFTS MANAGER) TSH 2.053 0.350 - 4.940 uIU/mL 05/13/2024 5:02 AM MAJOR GIFTS MANAGER [facility] Blood BLOOD SPECIMEN / Unknown Lab Venipuncture / Unknown 05/13/2024 4:16 AM MAJOR GIFTS MANAGER 05/13/2024 4:23 AM MAJOR GIFTS MANAGER Go Stacy MD LAB - CHEMISTRY SHAHID HASSAN [facility] Organization Address City/State/ZIP Co de Phone Number [facility] [address] [place] [address] * (ABNORMAL) CBC W AUTO DIFFERENTIAL (05/13/2024 4:16 AM MAJOR GIFTS MANAGER) Only the most recent of3 resultswithin the time period is included. WBC 4.6 4.0 - 10.7 x10E9/L 05/13/2024 4:30 AM [facility] RBC Count 3.71(L) 4.30 - 5.80 x10E12/L 05/13/2024 4:30 AM [facility] Hemoglobin 12.4(L) 13.3 - 17.5 g/dL 05/13/2024 4:30 AM [facility] Hematocrit 36.6(L) 38.7 - 51.1 % 05/13/2024 4:30 AM [facility] MCV 98.7(H) 80.0 - 98.0 fL 05/13/2024 4:30 AM [facility] MCH 33.4 26.7 - 33.6 pg 05/13/2024 4:30 AM [facility] MCHC 33.9 31.7 - 36.3 g/dL 05/13/2024 4:30 AM [facility] RDW-CV 12.5 11.3 - 14.8 % 05/13/2024 4:30 AM [facility] Platelet Count 158 150 - 420 x10E9/L 05/13/2024 4:30 AM [facility] MPV 10.0 7.8 - 11.4 fL 05/13/2024 4:30 AM [facility] Neutrophil % 56.6 41.0 - 74.0 % 05/13/2024 4:30 AM [facility] Lymphocyte % 23.5 17.0 - 47.0 % 05/13/2024 4:30 AM [facility] Monocyte % 14.7(H) 3.0 - 11.0 % 05/13/2024 4:30 AM [facility] Eosinophil % 3.5 0.0 - 7.0 % 05/13/2024 4:30 AM [facility] Basophil % 1.3 0.0 - 1.6 % 05/13/2024 4:30 AM [facility] Immature Granulocytes % 0.4 0.0 - 1.0 % 05/13/2024 4:30 AM [facility] Neutrophil Absolute 2.57 1.60 - 7.50 x10E9/L 05/13/2024 4:30 AM [facility] Lymphocyte Absolute 1.07 1.00 - 4.40 x10E9/L 05/13/2024 4:30 AM [facility] Monocyte Absolute 0.67 0.15 - 1.00 x10E9/L 05/13/2024 4:30 AM [facility] Eosinophil Absolute 0.16 0.00 - 0.60 x10E9/L 05/13/2024 4:30 AM [facility] Basophil Absolute 0.06 0.00 - 0.13 x10E9/L 05/13/2024 4:30 AM [facility] Blood BLOOD SPECIMEN / Unknown Lab Venipuncture / Unknown 05/13/2024 4:16 AM MAJOR GIFTS MANAGER 05/13/2024 4:23 AM [facility] Go Stacy MD LAB - HEMATOLOGY ORD ERABLES [facility] [address] [place] [address] * (ABNORMAL) RENAL FUNCTION PANEL (05/13/2024 4:16 AM [facility]) [facility] Glucose 86 70 - 99 mg/dL 05/13/2024 4:47 AM [facility] Sodium 138 136 - 145 mmol/L 05/13/2024 4:47 AM [facility] Potassium 4.7 3.5 - 5.1 mmol/L 05/13/2024 4:47 AM [facility] Chloride 109(H) 98 - 107 mmol/L 05/13/2024 4:47 AM [facility] CO2 25 22 - 29 mmol/L 05/13/2024 4:47 AM [facility] Calcium 8.8 8.4 - 10.4 mg/dL 05/13/2024 4:47 AM [facility] Anion Gap 4(L) 6 - 16 mmol/L 05/13/2024 4:47 AM [facility] BUN 26 7 - 26 mg/dL 05/13/2024 4:47 AM [facility] Creatinine 1.25 0.72 - 1.25 mg/dL 05/13/2024 4:47 AM [facility] Albumin 3.6 3.4 - 5.0 gm/dL 05/13/2024 4:47 AM [facility] Phosphorus 3.4 2.5 - 4.5 mg/dL 05/13/2024 4:47 AM [facility] eGFR by CKD-EPI 56(L) >=90 mL/min/1.7 3 m2 05/13/2024 4:47 AM [facility] Blood BLOOD SPECIMEN / Unknown Lab Venipuncture / Unknown 05/13/2024 4:16 AM MAJOR GIFTS MANAGER 05/13/2024 4:23 AM [facility] Go Stacy MD LAB - CHEMISTRY SHAHID HASSAN [facility] Organization Address City/State/ZIP Co de Phone Number [facility] [address] [place] [address] * LIPID PROFILE (05/13/2024 4:16 AM [facility]) Cholesterol 162 <200 mg/dL 05/13/2024 4:47 AM [facility] Triglycerides 85 <150 mg/dL 05/13/2024 4:47 AM [facility] HDL Cholesterol 59 >40 mg/dL 4:47 AM [facility] LDL Calculated 86 <130 mg/dL 05/13/2024 4:47 AM [facility] VLDL Calculated 17 <=30 mg/dL 4:47 AM [facility] Chol HDL Ratio 2.7 <4.5 05/13/2024 4:47 AM [facility] LDL/HDL Ratio 1.5 <5.0 05/13/2024 4:47 AM [facility] Blood BLOOD SPECIMEN / Unknown Lab Venipuncture / Unknown 05/13/2024 4:16 AM MAJOR GIFTS MANAGER 05/13/2024 4:23 AM MAJOR GIFTS MANAGER Go Stacy MD LAB - CHEMISTRY SHAHID JUANMARY LOU [facility] [address] [place] [address] * XR Hand Left 3Vw or More (05/12/2024 7:21 PM MAJOR GIFTS MANAGER) Anatomical Region Laterality Modality Wrist / Hand Radiographic Torri ging 05/12/2024 8:39 PM MAJOR GIFTS MANAGER Narrative 05/12/2024 8:40 PM MAJOR GIFTS MANAGER PROCEDURE: ??XR HAND LEFT 3VW OR MORE [...] * ERYTHROCYTE SEDIMENTATION RATE (05/12/2024 6:34 PM MAJOR GIFTS MANAGER) Erythrocyte Sedimentation Rate Automated 7 0 - 20 MM/HR 05/12/2024 6:34 PM MAJOR GIFTS MANAGER [facility] Blood BLOOD SPECIMEN / Unknown Lab Venipuncture / Unknown 05/12/2024 6:16 PM MAJOR GIFTS MANAGER Go Stacy MD LAB - HEMATOLOGY ORD ERABLES Performing Organization Address [facility]/ZIP Co de Phone Number [facility] [address] [place] [address] * CULTURE BLOOD (05/12/2024 6:12 PM MAJOR GIFTS MANAGER) Only the most recent of2 resultswithin the time period is included. Culture No growth day 5 RONNY 05/17/2024 10:31 PM MAJOR GIFTS MANAGER [facility] Blood PERIPHERAL BLOOD / Unknown Lab Venipuncture / Unknown 05/12/2024 6:12 PM MAJOR GIFTS MANAGER 05/12/2024 6:17 PM MAJOR GIFTS MANAGER Go Stacy MD LAB - MICROBIOLOGY O RDERABLES Performing Organization Address [facility] Co de Phone Number [facility] MICROBIOLOGY [address] [place], [address] [phone] * C-REACTIVE PROTEIN (05/12/2024 6:08 PM MAJOR GIFTS MANAGER) C-Reactive Protein 0.22 <=0.50 mg/dL 05/12/2024 6:35 PM MAJOR GIFTS MANAGER [facility] Blood BLOOD SPECIMEN / Unknown Lab Venipuncture / Unknown 05/12/2024 6:08 PM MAJOR GIFTS MANAGER 05/12/2024 6:16 PM MAJOR GIFTS MANAGER Go Stacy MD LAB - CHEMISTRY ORDE SONYA Performing Organization Address City/[facility]/ZIP Co de Phone Number [facility] [address] [place] [address] * (ABNORMAL) COMPREHENSIVE METABOLIC PANEL (05/12/2024 6:08 PM MAJOR GIFTS MANAGER) Glucose 89 70 - 99 mg/dL 05/12/2024 6:37 PM MAJOR GIFTS MANAGER [facility] Sodium 139 136 - 145 mmol/L 05/12/2024 6:37 PM MAJOR GIFTS MANAGER [facility] Potassium 4.7 3.5 - 5.1 mmol/L 05/12/2024 6:37 PM [facility] Chloride 108(H) 98 - 107 mmol/L 05/12/2024 6:37 PM [facility] CO2 23 22 - 29 mmol/L 05/12/2024 6:37 PM [facility] Calcium 9.0 8.4 - 10.4 mg/dL 05/12/2024 6:37 PM [facility] Anion Gap 8 6 - 16 mmol/L 05/12/2024 6:37 PM [facility] BUN 28(H) 7 - 26 mg/dL 05/12/2024 6:37 PM [facility] Creatinine 1.28(H) 0.72 - 1.25 mg/dL 05/12/2024 6:37 PM [facility] Alkaline Phosphatase 134 40 - 150 U/L 05/12/2024 6:37 PM [facility] ALT <6 0 - 55 U/L 05/12/2024 6:37 PM [facility] AST 15 5 - 34 U/L 05/12/2024 6:37 PM [facility] Protein Total 7.3 6.4 - 8.3 gm/dL 05/12/2024 6:37 PM [facility] Albumin 4.0 3.4 - 5.0 gm/dL 05/12/2024 6:37 PM [facility] Bilirubin Total 0.3 0.2 - 1.2 mg/dL 05/12/2024 6:37 PM [facility] eGFR by CKD-EPI 55(L) >=90 mL/min/1.7 3 m2 05/12/2024 6:37 PM [facility] Blood BLOOD SPECIMEN / Unknown Lab Venipuncture / Unknown 05/12/2024 6:08 PM MAJOR GIFTS MANAGER 05/12/2024 6:16 PM [facility] Go Stacy MD LAB - CHEMISTRY SHAHID HASSAN [facility] [address] [place] [address] * PHOSPHORUS BLOOD (05/12/2024 6:08 PM [facility]) [facility] Signature Phosphorus 3.2 2.5 - 4.5 mg/dL 05/12/2024 6:35 PM MAJOR GIFTS MANAGER [facility] Blood BLOOD SPECIMEN / Unknown Lab Venipuncture / Unknown 05/12/2024 6:08 PM MAJOR GIFTS MANAGER 05/12/2024 6:16 PM MAJOR GIFTS MANAGER Go Stacy MD LAB - CHEMISTRY SHAHID HASSAN [facility] [address] [place] [address] * MAGNESIUM BLOOD (05/12/2024 6:08 PM MAJOR GIFTS MANAGER) [facility] Magnesium 2.2 1.6 - 2.6 mg/dL 05/12/2024 6:35 PM MAJOR GIFTS MANAGER [facility] Blood BLOOD SPECIMEN / Unknown Lab Venipuncture / Unknown 05/12/2024 6:08 PM MAJOR GIFTS MANAGER 05/12/2024 6:16 PM MAJOR GIFTS MANAGER Go Stacy MD LAB - CHEMISTRY SHAHID HASSAN [facility] [address] [place] [address] from Last 3 Months Advance Directives Documents on File Type Date Recorded Patient Exhauster Engineer Expl anation Healthcare Power of Registered Respiratory Technician 05/18/2020 Medical POA * Full Code (Latest Code Status on File) Date Activated Date Inactivated Comments 05/12/2024 6:15 PM 05/13/2024 4:05 PM Care Teams Sexual Health Physician Relationship Specialty Start Date End Date Mateus Johnson DO [address] [place] [address] PCP - General 03/12/21
--- OUTSIDE RECORDS SUMMARY | 2024-06-03 01:24 | XMS_ITS | Encounter Summary ---
Author Organization [facility] Address [address] [place] [address] Phone Care Team Providers Care Weight Clerk Name Role Phone Jaime Buck MD Primary Care Provider [phone] Carlo Martinez DO Unavailable [phone] Reason for Visit * Reason Comments Medication Refill Encounter Details Date Type Department Care Team (Late st Contact Info) Description 08/14/2020 Refill [facility] - Neurology - [place] [address] [place] [address] Hitesh Enciso MD [address] [place] [phone] Medication Refill Social History Tobacco Use Types Packs/Day Years Used Date Smoking Tobacco: Former Cigarettes 2 50 Cigars Smokeless Tobacco: Never Alcohol Use Standard Drinks/Week Comments No 0 (1 standard drink = 0.6 oz pur e alcohol) Sex and Gender Information Value Date Recorded Sex Assigned at Not on file Legal Sex Male 7:49 PM CDT Gender Identity Not on file Sexual Orientation Not on file Occupation Industry Job Start Date Job End Date retired [employer] Not on file Not on file Not on file documented as of this encounter Plan of Treatment Not on file documented as of this encounter Visit Diagnoses Not on filedocumented in this encounter Care Teams Weight Clerk Relationship Specialty Start Date End Date Jaime Buck MD [address] [place] [address] PCP - General Family Medicine 03/29/15 Carlo Martinez DO [address] [place] [address] Gastroenterology 03/29/15 documented as of this encounter
--- OUTSIDE RECORDS SUMMARY | 2024-06-03 01:24 | XMS_ITS | Encounter Summary ---
Author Organization [facility] Address [address] [place] [address] Phone Care Team Providers Care Software Quality Automation Engineer Name Role Phone Jaime Buck MD Primary Care Provider [phone] Carlo Martinez DO Unavailable [phone] Reason for Visit * Reason Comments Medication Refill Encounter Details Date Type Department Care Team (Late st Contact Info) Description 07/02/2020 Refill [facility] - Neurology - [place] [address] [place] [address] Hitesh Enciso MD [address] [place] [phone] Medication Refill Social History Tobacco Use Types [...] on filedocumented in this encounter Care Teams Software Quality Automation Engineer Relationship Specialty Start Date End Date Jaime Buck MD [address] [place] [address] PCP - General Family Medicine 03/29/15 Carlo Martinez DO [address] [place] [address] Gastroenterology 03/29/15 documented as of this encounter
--- OUTSIDE RECORDS SUMMARY | 2024-06-03 01:24 | XMS_ITS | Encounter Summary ---
Author Organization [facility] Address [address] [place] [address] Phone Care Team Providers Care Marketing Producer Name Role Phone Jaime Buck MD Primary Care Provider [phone] Carlo Martinez DO Unavailable [phone] Reason for Visit * Reason Comments Medication Refill Encounter Details Date Type Department Care Team (Late st Contact Info) Description 01/07/2021 Refill [facility] - Neurology [facility] [address] [place] [address] Hitesh Enciso MD [address] [place] [phone] Medication Refill Social History Tobacco Use Types [...] on filedocumented in this encounter Care Teams Marketing Producer Relationship Specialty Start Date End Date Jaime Buck MD [address] [place] [address] PCP - General Family Medicine 03/29/15 Carlo Martinez DO [address] [place] [address] Gastroenterology 03/29/15 documented as of this encounter
--- OUTSIDE RECORDS SUMMARY | 2024-06-03 01:24 | XMS_ITS | Encounter Summary ---
Author Organization [facility] Address [address] [place] [address] Care Team Providers Care Professor Of Geography Name Role Phone Jaime Buck MD Primary Care Provider [phone] Tristin HSU MD, Ochoa Maddox Unavailable [phone] Janet Meier MD Unavailable [phone] Peewee Dalton NP Primary Care Provider [phone] Jessica Melendez SWITCHBOARD MECHANIC Unavailable [phone] Theresa Plasencia DPT Unavailable [phone] Dawna Lara SWITCHBOARD MECHANIC Unavailable [phone] Jenni Ochoa MD Unavailable [phone] Joann HSU MD PhD, Benito Palafox Unavailable Ez Ansari MD Unavailable [phone] Jevon Mohr MD Unavailable [phone] Vipul Palomo MD Primary Care Provider [phone] Encounter Details Date Type Department Care Team (Late st Contact Info) Description 09/15/2018 Telephone [facility] Radiology [address] [place] [address] Ella Maher, RN Social History Tobacco Use Types Packs/Day Years Used Date Smoking Tobacco: Former Cigars Q uit: 06/21/2015 Smokeless Tobacco: Never Comments:Smoking History Pac ks/day: 1 Cigars Alcohol Use Standard Drinks/Week Comments No 0 (1 standard drink = 0.6 oz pur e alcohol) Sex and Gender Information Value Date Recorded Sex Assigned at Not on file Legal Sex Male 7:30 PM MANUFACTURING FINANCE MANAGER Gender Identity Not on file Sexual Orientation Not on file documented as of this encounter Plan of Treatment Not on file documented as of this encounter Visit Diagnoses Not on filedocumented in this encounter Care Teams Professor Of Geography Relationship Specialty Start Date End Date Jaime Buck MD [address] [place] [address] PCP - General 08/08/16 05/21/20 Peewee Dalton NP [address] [place] [address] PCP - General Nurse Practitioner 05/22/20 07/20/23 Vipul Palomo MD [address] [facility] [address] [place] [address] PCP - General Family Practice 07/21/23 Ochoa Crow III, MD [address] [place] [address] Consulting Physician Rheumatology 04/09/17 Janet Meier MD [address] [place] [address] Referring Physician Pulmonary Disease 05/12/18 Jessica Melendez, [place] [address] [place] [address] Speech Language Pathologist Speech Therapy 10/25/20 12/17/20 Theresa Plasencia DPT [address] [place] [address] Physical Therapist Physical Therapy 11/23/20 Dawna Lara, [place] [address] [place] [address] Speech Language Pathologist Speech Therapy 12/18/20 02/18/21 Jenni Ochoa MD [address] [place] [address] Consulting Physician Rheumatology 11/26/21 Benito David III, MD PhD [address] [place] [address] Neurologist Neurology 11/26/21 Ez Ansari MD [address] [place] [address] Consulting Physician Ophthalmology 11/26/21 Jevon Mohr MD [address] [facility] [address] [place] [address] [facility] Cardiology 11/26/21 documented as of this encounter
--- OUTSIDE RECORDS SUMMARY | 2024-06-03 01:24 | XMS_ITS | Clinical Summary ---
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 Surgical History Surgery Date Site/Laterality Comments ASHLEIGH FUNDOPLICATION 05/11/2003 - 05/10/2004 CHOLECYSTECTOMY 05/11/2003 - 05/10/2004 EPIDURAL INJECTION LUMBOSACRAL 08/07/2015 N/A MULTIPLE TOOTH EXTRACTIONS 05/11/1957 - 05/10/1958 KNEE SURGERY 05/11/1964 - 05/10/1965 Right CORONARY ARTERY BYPASS GRAFT 05/11/2015 - 05/10/2016 Quadruple CATARACT EXTRACTION, BILATERAL 05/11/2018 - 05/10/2019 BACK SURGERY 05/11/2019 - 05/10/2020 UVULOPALATOPHARYNGOPLASTY 05/11/1983 - 05/10/1984 MYOTOMY CRICOPHARYNGEAL 05/11/1995 - 05/10/1996 Medical History Medical History Date Comments MADDIE on CPAP GERD (gastroesophageal reflux disease) Dysphagia Cricopharyngeal achalasia Family History Medical History Relation Name Comments Congenital heart disease Brother 1 Kota Crohn's disease Brother 2 Thomas Heart disease Brother 2 Thomas Coronary arter y disease; Heart attack Father Guillermo [place]; Cause of De ath: [place] Stomach cancer Mother Lilliian cancer, gastr ic; Cause of : cancer, gastric Colon cancer Other 1 Family history of Cancer, colon; Other Other 2 Family history of Cancer, bladder; Heart disease Other 3 Family history of Heart disease; Other Other 4 Family history of colitis; Other Other 5 Family history of rheumatoidarthritis; Rheum arthritis Sister Edith Relation Name Status Comments Brother 1 Kota Alive Brother 2 Thomas (Age 74) Father Guillermo (Age 84) Mother Guerrero (Age 64) Other 1 Other 2 Other 3 Other 4 Other 5 Sister Edith Alive Social History Tobacco Use Types Packs/Day Years Used Date Smoking Tobacco: Former Cigars Q uit: 06/21/2014 Smokeless Tobacco: Never Tobacco Cessation:Counseling Given: Not Answered Comments:Smoking History Packs/day: 1 Cigars Alcohol Use Standard Drinks/Week Comments No 0 (1 standard drink = 0.6 oz pur e alcohol) AUDIT-C Answer Date Recorded Q1: How often do you have a drink containing alcohol? Never 12/25/2021 Q2: How many drinks containi ng alcohol do you have on a typical day when you are drinking? Patient does not drink Frequency of Binge Drinking Not on file 12/09 Sex and Gender Information Value Date Recorded Sex Assigned at Not on file Legal Sex Male 7:30 PM MILKER MACHINE Gender Identity Not on file Sexual Orientation Not on file Obstetrics History Last Filed Vital Signs Vital Sign Reading Time Taken Comments Blood Pressure 134/64 06/02/2024 1:52 PM MILKER MACHINE Pulse 68 06/02/2024 1:52 PM MILKER MACHINE Temperature 36.1 ??C (97 ??F) 06/02/2024 1:52 PM MILKER MACHINE Respiratory Rate 18 06/02/2024 1:52 PM MILKER MACHINE Oxygen Saturation 98% 06/02/2024 1:52 PM MILKER MACHINE Inhaled Oxygen Concentration - - Weight 82.6 kg (182 lb) 06/02/2024 1:52 PM MILKER MACHINE Height 160 cm (5' 3 ) 06/02/2024 1:52 PM MILKER MACHINE Body Mass Index 32.24 06/02/2024 1:52 PM MILKER MACHINE Plan of Treatment Health Maintenance Due Date Last Done Comments DTaP/Tdap/Td Vaccine (1 - Tdap) 1951 Hepatitis B Screening 02/07/1956 Zoster Vaccine (1 of 2) 1957 Well Visit 65+ 2003 Fall Risk Assessment 12/25/2022 12/25/2021 Covid-19 Vaccine (4 2023-2 5 season) 2024 12/29/2020, 07/30/2020, 06/28/2020 Influenza Vaccine (#1) 2024 , 01/21/2020, 01/21/2020, Additional history exists Depression Screening 02/25/2025 02/26/2024 Pneumococcal vaccine 65+ Completed 018, 02/23/2018, 02/18/2017, Additional history exists Insurance MEDICARE [place] MEDICARE [facility] MEDICARE [facility] MEDICARE BLUE CROSS MEDICARE SUPPLEMENT Advance Directives For more information, please contact: [phone] * Full Code (Latest Code Status on File) Date Activated Date Inactivated Comments 12/24/2021 8:42 AM 12/24/2021 4:15 PM Care Teams Garment Presser Relationship Specialty Start Date End Date Vipul Palomo MD [address] [place] [address] PCP - General Family Practice 07/21/23 Ochoa Crow III, MD [address] [place] [address] Consulting Physician Rheumatology 04/09/17 Janet Meier MD [address] [place] [address] Referring Physician Pulmonary Disease 05/12/18 Theresa Plasencia DPT [address] [place], [place] [id number] Physical Therapist Physical Therapy 11/23/20 Jenni Ochoa MD [address] [place] [address] Consulting Physician Rheumatology 11/26/21 Benito David III, MD PhD [address] [place] [address] Neurologist Neurology 11/26/21 Ez Ansari MD [address] [place] [address] Consulting Physician Ophthalmology 11/26/21 Jevon Mohr MD [address] [facility] [address] [place] [address] Radiology Special Procedure Tech Cardiology 11/26/21
--- OUTSIDE RECORDS SUMMARY | 2024-06-03 01:24 | XMS_ITS | Encounter Summary ---
Author Organization [facility] Address [address] [place] [address] Phone Care Team Providers Care Research Advisor Name Role Phone Jaime Buck MD Primary Care Provider [phone] Carlo Martinez DO Unavailable [phone] Reason for Visit * Reason Comments Medication Refill Encounter Details Date Type Department Care Team (Late st Contact Info) Description 09/29/2020 Refill [facility] - Neurology - [place] [address] [place] [address] Hitesh Enciso MD [address] [place] [phone] Medication Refill Social History Tobacco Use Types [...] on filedocumented in this encounter Care Teams Research Advisor Relationship Specialty Start Date End Date Jaime Buck MD [address] [place] [address] PCP - General Family Medicine 03/29/15 Carlo Martinez DO [address] [place] [address] Gastroenterology 03/29/15 documented as of this encounter
--- OUTSIDE RECORDS SUMMARY | 2024-06-03 01:24 | XMS_ITS | Encounter Summary ---
Author Organization [facility] Address [address] [place] [address] Phone Care Team Providers Care Production Leader Name Role Phone Jaime Buck MD Primary Care Provider [phone] Carlo Martinez DO Unavailable [phone] Reason for Visit * Reason Comments Medication Refill Encounter Details Date Type Department Care Team (Late st Contact Info) Description 11/03/2020 Refill [facility] - Neurology - [place] [address] [place] [address] Hitesh Enicso MD [address] [place] [phone] Medication Refill Social History Tobacco Use Types [...] on filedocumented in this encounter Care Teams Production Leader Relationship Specialty Start Date End Date Jaime Buck MD [address] [place] [address] PCP - General Family Medicine 03/29/15 Carlo Martinez DO [address] [place] [address] Gastroenterology 03/29/15 documented as of this encounter
--- OUTSIDE RECORDS SUMMARY | 2024-06-03 01:24 | XMS_ITS | Referral Summary ---
Author Organization [facility] [address] Address [address] [place] [address] Care Team Providers Care Periodicals Clerk Name Role Phone Tristin HSU MD, Ochoa Maddox Unavailable [phone] Janet Meier MD Unavailable [phone] Theresa Plasencia DPT Unavailable + [phone] Jenni Ochoa MD Unavailable [phone] Joann HSU MD PhD, Benito Palafox Unavailable Ez Ansari MD Unavailable [phone] Jevon Mohr MD Unavailable [phone] Vipul Palomo MD Primary Care Provider [phone] Encounters Date Type Department Care Team Description 06/02/2024 2:00 PM CARPET BINDER Office Visit [facility] Infectious Disease [address] [place] [address] Danny Perez MD 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); Parkinson's disease, unspecified whether dyskinesia present, unspecified whether manifestations fluctuate (HCC); Dementia, unspecified dementia severity, unspecified dementia type, unspecified whether behavioral, psychotic, or mood disturbance or anxiety (HCC); Other abnormal glucose from Last 3 Months Allergies Active Allergy [...] 1 tablet (75 mcg total) by mouth local area network administrator before breakfast 3 08/12/19 19 Active hydrOXYchloroQ [...] 3 DOSES TOTAL 25 tablet 2 02/09/20 Active rOPINIRole (REQUIP) 1 mg tablet TAKE 2 TABLETS BY MOUTH EVERY DAY AT 6AM, TAKE 1 TABLET BY MOUTH EVERY DAY AT 3:30PM AND TAKE 3 TABLETS EVERY DAY AT 10PM 540 tablet 3 02/26/20 Active acetaminophen (TYLENOL) 500 mg tablet TAKE 2 TABLETS BY MOUTH THREE TIMES DAILY NEEDED FOR PAIN 02/22/20 Active ibuprofen (ADVIL,MOTRIN) 600 mg tablet Take 1 tablet (600 mg total) by mouth 3 (three) times a day as needed for pain 02/22/20 Active clobetasoL (TEMOVATE) 0.05 % ointment Apply [...] (12/24/2021): Added automatically from request for surgery [id number] Abnormal CT scan, gastrointestinal tract 022 Overview (12/18/2021): Added automatically from request for surgery [id number] Diplopia 08/28/2021 Bilateral lower extremity edema 10/26/2020 [...] he has had a swallow study with CHEESE SPECIALIST in 2020. We discussed another swallow evaluation, but they prefer to hold off. Diplopia has extensively evaluated by Neuro-Ophtalmology (Dr. Montero), and is suspected to be PD-related. I recommend the following: Continue carbidopa/levodopa. Okay to take extra tab before SoundCloud games. Cut back ropinirole from 6 tabs [...] wonder if this is related to adverse TIRE MOUNTER effects of these medications. He can try [...] he has had a swallow study with CHEESE SPECIALIST in 2020. We discussed another swallow evaluation, [...] carbidopa/levodopa. Okay to take extra tab before horseshoe games. Continue ropinirole. Continue gabapentin. We discussed [...] with applesauce, pudding or yogurt; or dissolving zis-ypnd-nvxvph pills in OJ or grape juice. No [...] 6a/12p/6p; may try 1 extra tab before horsesTRINA SOLAR LTD games. Same ropinirole, if hallucinations worsen, we will decrease this. Continue gabapentin. Continue carbamazepine 200mg twice a day Start APDA youtube channel exercises. Referral to Physical Therapy. 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 Could try caffeine for daytime sleepiness. Assessment & Plan (04/28/2022 3:53 PM CARPET BINDER): PD remains well controlled on his current [...] twice a day 5. Follow-up with your Neuro-Pallet Rectifier 6. 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 Has seen safe deposit clerk and sheet manager for this issue. Assessment & Plan (12/31/2017 [...] in sister. Coronary artery disease invo lving [place] coronary artery of [place] heart without angina pectoris 12/19/2016 Essential hypertension 12/19/2016 MOSHER (dyspnea on exertion) 12/19/2016 Assessment & Plan (03/05/2018 12:49 PM CDT): Patient having shortness of breath with walking and talking. Has stopped Ellipta inhaler, but still has albuterol inhaler prn. Advised to follow up with car porter. Urticaria, unspecified 08/21/2016 Erectile dysfunction due to [...] 10/28/2017 Chronic coronary artery disease 01/25/2014 02/24/2019 Immunizations Name Administration Dates Next Due Influenza, Quadrivalent, Hig h Dose, Preservative Free, Intrr 01/30/2021,01/21/2020 Influenza, Quadrivalent, Spl it, Intramuscular 05/11/2015 Influenza, Trivalent, High D ose, Split, Preservative Free, Intramuscular 01/21/2020,02/01/2019,02/08/2018,02/07,02/15/2017,02/29/2016 Influenza, Trivalent, IM (MDV) 03/15/2015 Influenza, Trivalent, Preser vative Free, Intramuscular 02/08/2015 Influenza, Unspecified 03/15/2015,05/11/2009 Pneumococcal Conjugate PCV 13 02/18/2017 Pneumococcal Polysaccharide PPV23 02/24/2018, Pneumococcal, Unspecified 05/11/2009 Social History Tobacco Use Types Packs/Day Years [...] on file Legal Sex Male 7:30 PM CARPET BINDER Gender Identity Not on file Sexual Orientation Not on file Last Filed Vital Signs Vital Sign Reading Time Taken Comments Blood Pressure 134/64 06/02/2024 1:52 PM CARPET BINDER Pulse 68 06/02/2024 1:52 PM CARPET BINDER Temperature 36.1 ??C (97 ??F) 06/02/2024 1:52 PM CARPET BINDER Respiratory Rate 18 06/02/2024 1:52 PM CARPET BINDER Oxygen Saturation 98% 06/02/2024 1:52 PM CARPET BINDER Inhaled Oxygen Concentration - - Weight 82.6 kg (182 lb) 06/02/2024 1:52 PM CARPET BINDER Height 160 cm (5' 3 ) 06/02/2024 1:52 PM CARPET BINDER Body Mass Index 32.24 06/02/2024 1:52 PM CARPET BINDER Plan of Treatment Not on [place] [address] [facility] Address: [address] [place] [address] MEDICARE [facility] MEDICARE [facility] MEDICARE BLUE CROSS MEDICARE SUPPLEMENT Advance Directives For more information, please contact: [phone] * Full Code (Latest Code Status on File) Date Activated Date Inactivated Comments 12/24/2021 8:42 AM 12/24/2021 4:15 PM Care Teams Periodicals Clerk Relationship Specialty Start Date End Date Vipul Palomo MD [address] [place] [address] PCP - General Family Practice 07/21/23 Ochoa Crow III, MD [address] [place] [address] Consulting Physician Rheumatology 04/09/17 Janet Meier MD [address] [place] [address] Referring Physician Pulmonary Disease 05/12/18 Theresa Plasencia DPT [address] [place] [address] Physical Therapist Physical Therapy 11/23/20 Jenni Ochoa MD [address] [place] [address] Consulting Physician Rheumatology 11/26/21 Benito David III, MD PhD [address] [place] [address] Neurologist Neurology 11/26/21 Ez Ansari MD [address] [place] [address] Consulting Physician Ophthalmology 11/26/21 Jevon Mohr MD [address] [place] [address] Photocopying Equipment Repairer Cardiology 11/26/21
--- OUTSIDE RECORDS SUMMARY | 2024-06-03 01:24 | XMS_ITS | Encounter Summary ---
Author Organization [facility] Address [address] 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
--- OUTSIDE RECORDS SUMMARY | 2024-06-03 01:24 | XMS_ITS | Encounter Summary ---
Author Organization [facility] Address [address] [place] [address] Phone Care Team Providers Care School Janitor Name Role Phone Jaime Buck MD Primary Care Provider [phone] Carlo Martinez DO Unavailable [phone] Reason for Visit * Reason Comments Medication Refill Encounter Details Date Type Department Care Team (Late st Contact Info) Description 05/19/2021 Refill [facility] - Gastroenterology [facility] [address] [place] [address] Tashia Aguilar, [facility] [address] [place] [address] Medication Refill Social History Tobacco Use Types [...] on file documented as of this encounter Miscellaneous Notes * Telephone Encounter - Deanna Lake RN - 05/21/2021 4:28 PM SALES AGENT TRADING STAMPS Medication refilled and signed per [facility] chronic medication standing order for pediatric and adult patients. S AGENT TRADING STAMPS * Telephone Encounter - Deanna Lake RN - 05/21/2021 4:21 PM SALES AGENT TRADING STAMPS Pharmacy requesting refill of: Requested Prescriptions Pending Prescriptions Disp Refills ??? famotidine (PEPCID) 20 MG Tablet [Pharmacy Med Name: FAMOTIDINE 20MG TABLETS] 180 Tablet 3 Sig: TAKE 1 TABLET BY MOUTH TWICE DAILY Last fill: 05/28/2020 Patients last OV with GI: telemedicine office visit on 05/28/2020 Next Office Visit with GI: None scheduled. Called patient, offered an appt. Patient scheduled 06/03/2021. S AGENT TRADING STAMPS documented in this encounter Plan of Treatment Not on file documented as of this encounter Visit Diagnoses Diagnosis Gastroesophageal reflux disease with esophagitis without hemorrhage documented in this encounter Care Teams School Janitor Relationship Specialty Start Date End Date Jaime Buck MD [address] [place] [address] PCP - General Family Medicine 03/29/15 Carlo Martinez DO [address] [place] [address] Gastroenterology 03/29/15 documented as of this encounter
--- OUTSIDE RECORDS SUMMARY | 2024-06-03 01:24 | XMS_ITS | Encounter Summary ---
Author Organization [facility] Address [address] [place] [address] Care Team Providers Care Sole Inker Name Role Phone Jaime Buck MD Primary Care Provider [phone] Tristin HSU MD, Ochoa Maddox Unavailable [phone] Janet Meier MD Unavailable [phone] Peewee Dalton NP Primary Care Provider [phone] Jessica Melendez IT MANAGER Unavailable [phone] Theresa Plasencia DPT Unavailable [phone] Dawna Lara IT MANAGER Unavailable [phone] Jenni Ochoa MD Unavailable [phone] Joann HSU MD PhD, Benito Palafox Unavailable Ez Ansari MD Unavailable [phone] Jevon Mohr MD Unavailable [phone] Vipul Palomo MD Primary Care Provider [phone] Encounter Details Date Type Department Care Team (Late st Contact Info) Description 08/25/2018 Telephone [facility] Radiology [address] [place] [address] Ella Maher, RN Social History [...] on file Legal Sex Male 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 Gender Identity Not on file Sexual Orientation Not on file documented as of this encounter Plan of Treatment Not on file documented as of this encounter Visit Diagnoses Not on filedocumented in this encounter Care Teams Sole Inker Relationship Specialty Start Date End Date Jaime Buck MD [address] [place] [address] PCP - General 08/08/16 05/21/20 Peewee Dalton NP [address] [place] [address] PCP - General Nurse Practitioner 05/22/20 07/20/23 Vipul Palomo MD [address] [facility] [address] [place] [address] PCP - General Family Practice 07/21/23 Ochoa Crow III, MD [address] [place] [address] Consulting Physician Rheumatology 04/09/17 Janet Meier MD [address] [place] [address] Referring Physician Pulmonary Disease 05/12/18 Jessica Melendez, MAYCOL [address] [place] [address] Speech Language Pathologist Speech Therapy 10/25/20 12/17/20 Theresa Plasencia DPT [address] [place] [address] Physical Therapist Physical Therapy 11/23/20 Dawna Lara, MAYCOL [address] [place] [address] Speech Language Pathologist Speech Therapy 12/18/20 02/18/21 Jenni Ochoa MD [address] [place] [address] Consulting Physician Rheumatology 11/26/21 Benito David III, MD PhD [address] [place] [address] Neurologist Neurology 11/26/21 Ez Ansari MD [address] [place] [address] Consulting Physician Ophthalmology 11/26/21 Jevon Mohr MD [address] [facility] [address] [place] [address] Oil Rag Washer Cardiology 11/26/21 documented as of this encounter
--- OUTSIDE RECORDS SUMMARY | 2024-06-03 01:24 | XMS_ITS | Continuity of Care Document ---
Author Organization [facility] Address [address] [place] [address] [place] [address] Phone Care Team Providers Care Telephone Messenger Name Role Phone Will Elias Unavailable Unavailable Procedures Procedure Date Office/outpatient Visit, Est Incise/drain Eyelid Lining No Script Office/outpatient Visit, Est No Script Office/outpatient Visit, Est No Script Eye Exam Established Pt No Script Advance Directives Directive Yes / No Effective Date File Name No Information Encounters Encounter Description Practice Location Reason(s) For Visit Diagnoses Date Provider Providers Copied on Encounter Office/outpat ient Visit, Est [facility], [address] [place] [address] [address], [place], [place], [id number], [place] tel:[phone] [facility] No Information 5-201 0 Krishnasamy Will. [address] [facility] [address], [place], [facility], [place]. tel:[phone] [facility], [address] [place] [address] [address], [place], [place], [id number], [place] tel:[phone] [facility] No Information 2-200 9 Krishnasamy Will. [address] [facility] [address], [place], [address], [place]. tel:[phone] Referring Provider: Will garcía [address] [facility] [address], [place], [place], [facility]. tel:[phone] Office/outpat ient Visit, [facility] Eye [facility], [address] [place] [address] [address], [place], [place], [id number], tel:[phone] [facility] No Information Jan-0 3-200 9 Krishnasamy Will. [address] [facility] [address], [place], [place], [facility], . tel:[phone] Referring Provider: Carlo Blum, [address] [place] [address] [address], [place], [place], [facility]. tel:[phone] Office/outpat ient Visit, [facility], [address] [place] [address] [address], [place], [place], [id number], tel:[phone] [facility] No Information [address] OD Carlo. [address] [place] [address] , [address], [place], [place], [facility], . tel:[phone] [facility], [address] [place], [place] [address], [place], [place], [id number], tel:[phone] [facility] No Information 9-200 9 Krishnasamy Will. [facility] [address], [place], [place], [facility], . tel:[phone] Family History Family Member Type Diagnosis Age At Onset No Information Payers Payer name Insurance type Covered alliance party ID Authoriza tion(s) Medicare [facility] [id number] BCBS ID Commercial BL [id number] Social History Type Description Quantity Date Captured Comments Sex Male Smoking Status No Information Chief Complaint And Reason For Visit No Information Reason For Referral Reason For Referral No Information History Of Present Illness Encounter Date Complaint History Of Prese nt Illness No Information Functional Status Date Functional Assessmen t No Information Instructions Date Instruction Additional Infor mation No Information Assessments Type Assessment Date No Information Patient Care Teams Name Effective Dates (start - stop) Status Members No Information
--- OUTSIDE RECORDS SUMMARY | 2024-06-03 01:24 | XMS_ITS | Clinical Summary ---
Author Organization [facility] Address [address] [place] [address] [address] [place] [address] Phone Care Team Providers Care Pv Design Engineer Name Role Phone Jaime Buck MD Primary Care Provider [phone] Carlo Martinez DO Unavailable Allergies Active Allergy Reactions Criticality Noted Date Comments Morphine Unknown 12/29/2019 Medications aspirin EC 81 MG Tablet Delayed Response Take 81 mg by mouth daily. Active levothyroxine (SYNTHROID) 50 MCG Tablet Take 50 mcg by mouth daily. Active hydrochlorothiaz haja 25 MG Tablet Take 25 mg by mouth daily. Active hydroxychloroqui ne (Plaquenil) 200 MG Tablet Take 400 mg by mouth daily. Active Budesonide-Formo terol Fumarate (SYMBICORT IN) take by inhalation. Active Docusate Sodium (COLACE PO) Take by mouth. Active furosemide (LASIX) 20 MG Tablet Take 3 tablets daily for 3 days, then take 1 tablet daily thereafter. 05/22/2020 Active pantoprazole (PROTONIX) 40 MG Tablet Delayed Response Take 40 mg by mouth 2 times daily. Active carBAMazepine (TEGretol) 200 MG TabletIndication s:Glossopharynge al neuralgia Take 1 Tablet by mouth 2 times daily (with meals). 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 11/20/2016 Diverticulosis large intesti ne w/o perforation or abscess w/o bleeding 03/29/2015 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 Gastro-esophageal reflux disease with esophagiti s 03/29/2015 Colon polyps 03/29/2015 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 Immunizations Immunization Administration Dates Next Due Covid-19, Mrna, Lnp-s, PF, 1 00 mcg/0.5 mL Dose (Moderna) 12/29/2020,07/30/2020,06/28/2020 Influenza Vaccine greater than 3 yrs 03/15/2015 Influenza, High-dose, Quadrivalent 01/30/2021, Influenza, Injectable, Quadrivalent 05/11/2015 Influenza, Seasonal, Injecta ble, Undefined 03/15/2015 Influenza, high-dose, trivalent, PF 01/09,02/01/2019,02/07/2018,2016,02/29/2016 Pneumococcal Vaccine - 13 Valent 02/18/2017 Pneumococcal Vaccine Adult - 23 Valent 02/23/2018 Pneumococcal Vaccine, Unspec ified Formulation 05/11/2009 Family History Medical History Relation Name Comments Crohn's Disease Brother Heart Disease Brother Heart Disease Father Colon Cancer Mother Heart Disease Sister Rheumatoid Arthritis Sister Relation Name Status Comments Brother Father Mother Sister Social History Tobacco Use Types Packs/Day Years Used Date Smoking Tobacco: Former Cigarettes 2 50 Cigars Smokeless Tobacco: Never Tobacco Cessation:Counseling Given: Yes Alcohol Use Standard Drinks/Week Comments No 0 [...] file Not on file Not on file Last Filed Vital Signs Vital Sign Reading Time Taken Comments Blood Pressure 140/80 12/29/2019 1:31 PM CDT Pulse 67 12/29/2019 1:31 PM CDT Temperature 36.4 ??C (97.5 ??F) 12/29/2019 1:31 PM CD T Respiratory Rate 17 12/29/2019 1:31 PM CDT Oxygen Saturation 96% 12/29/2019 1:31 PM CDT Inhaled Oxygen Concentration - - Weight 93 kg (205 lb) 05/28/2020 9:09 AM [employer] Adarsh bal Height 170.2 cm (5' 7 ) 05/28/2020 9:09 AM [employer] Body Mass Index 32.11 05/28/2020 9:09 AM [employer] Plan of Treatment Health Maintenance Due Date Last Done Comments Hepatitis C Virus (HCV) Screening 1940 Respiratory Syncytial Virus (RSV) Immunization (Adult) (1 - 1-dose 75+ series) 2013 Zoster Immunization (2 of 2) 03/27/2021 01/30/2021 Influenza Immunization (#1) 2024 092 06/2020, 01/21/2020, 01/21/2020, Additional history exists SARS-COV-2 Immunization ( season) 2024 09/05/2021, 12/29/2020, 07/30/2020, Additional history exists Pneumococcal Immunization (50+ years) Completed 02/23/2018, 02/18/2017, 05/11/2009 Pneumococcal Immunization Combined Discontinued 02/23/2018, 02/18/2017, 05/11/2009 DTaP/Tdap/Td Immunization Discontinued 07/05/2020 TdaP Immunization Completed 07/05/2020 Hepatitis B Immunization Aged Out No longer eligible based on patient's age to complete this topic Meningococcal Immunization (ACWY) Aged Out No longer eligible based on patient's age to complete this topic Rotavirus Immunization Aged Out No lo nger eligible based on patient's age to complete this topic Insurance MEDICARE [facility] Advance Directives Documents on File Type Date Recorded Patient Harmonic Analyst Expl anation POLST/POST/PA DNR 01/04/2020 2:54 PM POLST 10/20/2018 Care Teams Pv Design Engineer Relationship Specialty Start Date End Date Jaime Buck MD [address] [place] [id number] PCP - General Family Medicine 03/29/15 Carlo Martinez DO [address] [place] [id number] Gastroenterology 03/29/15
--- OUTSIDE RECORDS SUMMARY | 2024-06-03 01:24 | XMS_ITS | Patient Health Summary ---
Author Organization [facility] Address [address] [place] [address] Care Team Providers Care Urologic Surgeon Name Role Phone Mateus Johnson DO Primary Care Provider [phone] Note from [facility],non-owned Affiliates and Associated Physician Practices is amultiple site organization consisting of ambulatory clinics and hospital sitesin [place], [place], [place] and [place]. This disclosure is being madepursuant to the Care Everywhere program and may not contain all information available regarding this patient. Last updated 18.[facility] Allergies * Abatacept(Other) -Low Criticality * Morphine(Unknown) Medications * Be aware that medications may not be up to date on this document. Alwaysverify current medications with the patient. * albuterol HFA (PROVENTIL;VENTOLIN;PROAIR) 108 (90 Base) MCG/ACT inhaler Inhale 2 puffs by mouth every 6 hours as needed * hydroxychloroquine (PLAQUENIL) 200 MG tablet Take 400 mg by mouth once daily * tamsulosin (FLOMAX) 0.4 MG capsule(Started 03/19/2020) Take 0.4 mg by mouth at bedtime * carbidopa-levodopa (Sinemet) 25-100 MG tablet(Started 12/01/2023) Take 2 (two) tablets by mouth 3 times daily * aspirin (Aspirin) 81 MG chew tablet(Started 05/13/2024) Take 1 (one) tablet by mouth once daily * carBAMazepine (TEGretol) 200 MG tablet(Started 05/13/2024) Take 1 (one) tablet by mouth 2 times daily with morning and evening meal * doxycycline hyclate 100 MG tablet(Started 05/13/2024) Take 1 (one) tablet by mouth 2 times daily for 21 days * pantoprazole EC (Protonix) 40 MG tablet(Started 05/13/2024) Take 1 (one) tablet by mouth once daily * rOPINIRole (Requip) 1 MG tablet(Started 05/13/2024) Take 1.5 (one and one-half) tablets by mouth every 8 hours * rosuvastatin (Crestor) 20 MG tablet(Started 05/14/2024) Take 1 (one) tablet by mouth once daily * gabapentin (Neurontin) 300 MG capsule(Started 05/13/2024) Take 1 (one) capsule by mouth at bedtime * levothyroxine (Synthroid) 50 MCG tablet(Started 05/13/2024) Take 1.5 (one and one-half) tablets by mouth daily before breakfast Ended Medications* carBAMazepine (TEGRETOL) 200 MG tablet(Discontinued) Take 200 mg by mouth * gabapentin (NEURONTIN) 300 MG capsule(Started 04/03/2020)(Discontinued) Take 300 mg by mouth * levothyroxine (SYNTHROID) 50 MCG tablet(Discontinued) levothyroxine 50 mcg tablet TAKE 1 TABLET BY MOUTH ONCE DAILY * pantoprazole EC (PROTONIX) 40 MG tablet(Discontinued) pantoprazole 40 mg tablet,delayed release TAKE 1 TABLET BY MOUTH TWICE DAILY * rOPINIRole (REQUIP) 1 MG tablet(Started 12/29/2019)(Discontinued) Take 1.5 tabs q 7 hours * aspirin (Aspirin) 81 MG chew tablet(Started 05/14/2024)(Discontinued) Chew 1 (one) tablet by mouth once daily * carBAMazepine (TEGretol) 200 MG tablet(Started 05/13/2024)(Discontinued) Take 1 (one) tablet by mouth 2 times daily with morning and evening meal * gabapentin (Neurontin) 100 MG capsule(Started 05/13/2024)(Discontinued) Take 2 (two) capsules by mouth 3 times daily * levothyroxine (Synthroid) 50 MCG tablet(Started 05/13/2024)(Discontinued) Take 1.5 (one and one-half) tablets by mouth daily before breakfast * rosuvastatin (Crestor) 20 MG tablet(Started 05/14/2024)(Discontinued) Take 1 (one) tablet by mouth once daily * doxycycline hyclate 100 MG tablet(Started 05/13/2024)(Discontinued) Take 1 (one) tablet by mouth 2 times daily for 21 days * gabapentin (Neurontin) 300 MG capsule(Started 05/13/2024)(Discontinued) Take 1 (one) capsule by mouth at bedtime Active Problems Problem Noted Date Diagnosed Date [...] Comments Blood Pressure 132/63 05/13/2024 9:50 AM [facility] Pulse 55 05/13/2024 9:50 AM [facility] Temperature 36.3 ??C (97.3 ??F) 05/13/2024 9:50 AM CS T Respiratory Rate 18 05/13/2024 9:50 AM [facility] Oxygen Saturation 98% 05/13/2024 9:50 AM [facility] Inhaled Oxygen Concentration - - Weight 82.1 kg (181 lb) 05/13/2024 4:36 AM [facility] Height 157.5 cm (5' 2 ) 05/13/2024 4:36 AM [facility] Body Mass Index 33.11 05/13/2024 4:36 AM [facility] Procedures * CBC W AUTO DIFFERENTIAL(Performed 05/13/2024) * RENAL FUNCTION PANEL(Performed 05/13/2024) * TSH REFLEX FREE T4(Performed 05/13/2024) * LIPID PROFILE(Performed 05/13/2024) * CBC W AUTO DIFFERENTIAL(Performed 05/12/2024) * XR HAND LEFT 3VW OR MORE(Performed 05/12/2024) 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 * ERYTHROCYTE SEDIMENTATION RATE(Performed 05/12/2024) * CBC W AUTO DIFFERENTIAL(Performed 05/12/2024) * CULTURE BLOOD(Performed 05/12/2024) * C-REACTIVE PROTEIN(Performed 05/12/2024) * PHOSPHORUS BLOOD(Performed 05/12/2024) * MAGNESIUM BLOOD(Performed 05/12/2024) * COMPREHENSIVE METABOLIC PANEL(Performed 05/12/2024) * CULTURE BLOOD(Performed 05/12/2024) * XR FOOT BILAT 2VW(Performed 02/25/2017) Performed for Arthralgia, unspecified joint * XR HAND BILAT 2VW(Performed 02/25/2017) Performed for Arthralgia, unspecified joint * DERMATOPATHOLOGY(Performed 10/24/2011) Results * TSH REFLEX FREE T4 (05/13/2024 4:16 AM [facility]) [facility] TSH 2.053 0.350 - 4.940 uIU/mL 05/13/2024 5:02 AM [facility] Blood BLOOD SPECIMEN / Unknown Lab Venipuncture / Unknown 05/13/2024 4:16 AM [facility] 05/13/2024 4:23 AM [facility] Go Stacy MD LAB - CHEMISTRY SHAHID HASSAN [facility] Organization Address City/State/ZIP Co de Phone Number [facility] [address] [place], [place] [id number] * (ABNORMAL) CBC W AUTO DIFFERENTIAL (05/13/2024 4:16 AM [facility]) Only the most recent of3 resultswithin the time period is included. [facility] WBC 4.6 4.0 - 10.7 x10E9/L 05/13/2024 4:[address] [facility] RBC Count 3.71(L) 4.30 - 5.80 x10E12/L 05/13/2024 4:[address] [facility] Hemoglobin 12.4(L) 13.3 - 17.5 g/dL 05/13/2024 4:[address] [facility] Hematocrit 36.6(L) 38.7 - 51.1 % 05/13/2024 4:[address] [facility] MCV 98.7(H) 80.0 - 98.0 fL 05/13/2024 4:[address] [facility] MCH 33.4 26.7 - 33.6 pg 05/13/2024 4:[address] [facility] MCHC 33.9 31.7 - 36.3 g/dL 05/13/2024 4:[address] [facility] RDW-CV 12.5 11.3 - 14.8 % 05/13/2024 4:[address] [facility] Platelet Count 158 150 - 420 x10E9/L 05/13/2024 4:[address] [facility] MPV 10.0 7.8 - 11.4 fL 05/13/2024 4:[address] [facility] Neutrophil % 56.6 41.0 - 74.0 % 05/13/2024 4:[address] [facility] Lymphocyte % 23.5 17.0 - 47.0 % 05/13/2024 4:[address] [facility] Monocyte % 14.7(H) 3.0 - 11.0 % 05/13/2024 4:[address] [facility] Eosinophil % 3.5 0.0 - 7.0 % 05/13/2024 4:[address] [facility] Basophil % 1.3 0.0 - 1.6 % 05/13/2024 4:[address] [facility] Immature Granulocytes % 0.4 0.0 - 1.0 % 05/13/2024 4:[address] [facility] Neutrophil Absolute 2.57 1.60 - 7.50 x10E9/L 05/13/2024 4:[address] [facility] Lymphocyte Absolute 1.07 1.00 - 4.40 x10E9/L 05/13/2024 4:[address] [facility] Monocyte Absolute 0.67 0.15 - 1.00 x10E9/L 05/13/2024 4:[address] [facility] Eosinophil Absolute 0.16 0.00 - 0.60 x10E9/L 05/13/2024 4:[address] [facility] Basophil Absolute 0.06 0.00 - 0.13 x10E9/L 05/13/2024 4:[address] [facility] Blood BLOOD SPECIMEN / Unknown Lab Venipuncture / Unknown 05/13/2024 4:16 AM [facility] 05/13/2024 4:23 AM [facility] Go Stacy MD LAB - HEMATOLOGY ORD ERABLES [facility] [address] [place] [address] * (ABNORMAL) RENAL FUNCTION PANEL (05/13/2024 4:16 AM [facility]) Pathologist [facility] Glucose 86 70 - 99 mg/dL 05/13/2024 4:[address] [facility] Sodium 138 136 - 145 mmol/L 05/13/2024 4:[address] [facility] Potassium 4.7 3.5 - 5.1 mmol/L 05/13/2024 4:[address] [facility] Chloride 109(H) 98 - 107 mmol/L 05/13/2024 4:[address] [facility] CO2 25 22 - 29 mmol/L 05/13/2024 4:[address] [facility] Calcium 8.8 8.4 - 10.4 mg/dL 05/13/2024 4:[address] [facility] Anion Gap 4(L) 6 - 16 mmol/L 05/13/2024 4:[address] [facility] BUN 26 7 - 26 mg/dL 05/13/2024 4:[address] [facility] Creatinine 1.25 0.72 - 1.25 mg/dL 05/13/2024 4:[address] [facility] Albumin 3.6 3.4 - 5.0 gm/dL 05/13/2024 4:[address] [facility] Phosphorus 3.4 2.5 - 4.5 mg/dL 05/13/2024 4:[address] [facility] eGFR by CKD-EPI 56(L) >=90 mL/min/1.7 3 m2 05/13/2024 4:[address] [facility] Blood BLOOD SPECIMEN / Unknown Lab Venipuncture / Unknown 05/13/2024 4:16 AM [facility] 05/13/2024 4:23 AM [facility] Go Stacy MD LAB - CHEMISTRY SHAHID HASSAN [facility] [address] [place] [address] * LIPID PROFILE (05/13/2024 4:16 AM [facility]) Pathologist [facility] Cholesterol 162 <200 mg/dL 05/13/2024 4:47 AM [facility] Triglycerides 85 <150 mg/dL 05/13/2024 4:47 AM [facility] HDL Cholesterol 59 >40 mg/dL 4:47 AM [facility] LDL Calculated 86 <130 mg/dL 05/13/2024 4:47 AM [facility] VLDL Calculated 17 <=30 mg/dL 4:47 AM [facility] Chol HDL Ratio 2.7 <4.5 05/13/2024 4:47 AM [facility] LDL/HDL Ratio 1.5 <5.0 05/13/2024 4:47 AM [facility] Blood BLOOD SPECIMEN / Unknown Lab Venipuncture / Unknown 05/13/2024 4:16 AM [facility] 05/13/2024 4:23 AM [facility] Go Stacy MD LAB - CHEMISTRY SHAHID HASSAN [facility] Organization Address City/State/[facility] Co de Phone Number [facility] [address] [place], [place] [phone] * XR Hand Left 3Vw or More (05/12/2024 7:21 PM [facility]) Anatomical Region Laterality Modality Wrist / Hand Radiographic Torri ging 05/12/2024 8:39 PM [facility] Narrative 05/12/2024 8:40 PM [facility] PROCEDURE: ??XR HAND LEFT 3VW OR MORE [...] PM Go Stacy MD DIAGNOSTIC IMAGING O RDERAISMAEL * ERYTHROCYTE SEDIMENTATION RATE (05/12/2024 6:34 PM [facility]) Pathologist [facility] Erythrocyte Sedimentation Rate Automated 7 0 - 20 MM/HR 05/12/2024 6:34 PM [facility] Blood BLOOD SPECIMEN / Unknown Lab Venipuncture / Unknown 05/12/2024 6:16 PM [facility] Go Stacy MD LAB - HEMATOLOGY ORD ERABLES [facility] [address] [place] [address] * CULTURE BLOOD (05/12/2024 6:12 PM [facility]) Only the most recent of2 resultswithin the time period is included. [facility] Culture No growth day 5 RONNY 05/17/2024 10:31 PM [facility] MICROBIOLOGY Blood PERIPHERAL BLOOD / Unknown Lab Venipuncture / Unknown 05/12/2024 6:12 PM [facility] 05/12/2024 6:17 PM [facility] Go Stacy MD LAB - MICROBIOLOGY O RDERABLES [facility] MICROBIOLOGY [address] [place], [address] [phone] * C-REACTIVE PROTEIN (05/12/2024 6:08 PM [facility]) [facility] C-Reactive Protein 0.22 <=0.50 mg/dL 05/12/2024 6:[address] [facility] Blood BLOOD SPECIMEN / Unknown Lab Venipuncture / Unknown 05/12/2024 6:08 PM [facility] 05/12/2024 6:16 PM [facility] Go Stacy MD LAB - CHEMISTRY SHAHID HASSAN [facility] Organization Address City/State/ZIP Co de Phone Number [facility] [address] [place], [place] [phone] * (ABNORMAL) COMPREHENSIVE METABOLIC PANEL (05/12/2024 6:08 PM [facility]) Pathologist [facility] Glucose 89 70 - 99 mg/dL 05/12/2024 6:[address] [facility] Sodium 139 136 - 145 mmol/L 05/12/2024 6:[address] [facility] Potassium 4.7 3.5 - 5.1 mmol/L 05/12/2024 6:[address] [facility] Chloride 108(H) 98 - 107 mmol/L 05/12/2024 6:[address] [facility] CO2 23 22 - 29 mmol/L 05/12/2024 6:[address] [facility] Calcium 9.0 8.4 - 10.4 mg/dL 05/12/2024 6:[address] [facility] Anion Gap 8 6 - 16 mmol/L 05/12/2024 6:[address] [facility] BUN 28(H) 7 - 26 mg/dL 05/12/2024 6:[address] [facility] Creatinine 1.28(H) 0.72 - 1.25 mg/dL 05/12/2024 6:[address] [facility] Alkaline Phosphatase 134 40 - 150 U/L 05/12/2024 6:[address] [facility] ALT <6 0 - 55 U/L 05/12/2024 6:[address] [facility] AST 15 5 - 34 U/L 05/12/2024 6:[address] [facility] Protein Total 7.3 6.4 - 8.3 gm/dL 05/12/2024 6:[address] [facility] Albumin 4.0 3.4 - 5.0 gm/dL 05/12/2024 6:[address] [facility] Bilirubin Total 0.3 0.2 - 1.2 mg/dL 05/12/2024 6:37 PM [facility] eGFR by CKD-EPI 55(L) >=90 mL/min/1.7 3 m2 05/12/2024 6:37 PM [facility] Blood BLOOD SPECIMEN / Unknown Lab Venipuncture / Unknown 05/12/2024 6:08 PM [facility] 05/12/2024 6:16 PM [facility] Go Stacy MD LAB - CHEMISTRY SHAHID HASSAN Performing Organization Address [facility]/ZIP Co de Phone Number [facility] [address] [place] [id number] * PHOSPHORUS BLOOD (05/12/2024 6:08 PM [facility]) Phosphorus 3.2 2.5 - 4.5 mg/dL 05/12/2024 6:35 PM [facility] Blood BLOOD SPECIMEN / Unknown Lab Venipuncture / Unknown 05/12/2024 6:08 PM [facility] 05/12/2024 6:16 PM [facility] Go Stacy MD LAB - CHEMISTRY SHAHID HASSAN Performing Organization Address [facility] Co de Phone Number [facility] [address] [place] [id number] * MAGNESIUM BLOOD (05/12/2024 6:08 PM [facility]) Magnesium 2.2 1.6 - 2.6 mg/dL 05/12/2024 6:35 PM [facility] Blood BLOOD SPECIMEN / Unknown Lab Venipuncture / Unknown 05/12/2024 6:08 PM [facility] 05/12/2024 6:16 PM [facility] Go Stacy MD LAB - CHEMISTRY SHAHID HASSAN Performing Organization Address [facility] Co de Phone Number [facility] [address] [place] [id number] * XR HANDS BILATERAL 2 VIEWS (02/25/2017 4:07 PM CDT) Anatomical Region Laterality Modality Wrist / Hand, Upper Extremity Ra diographic Imaging 02/25/2017 4:16 PM CDT Impressions 02/25/2017 4:30 PM CDT Degenerative changes. Edited by Jenn Sanders on 02/25/2017 4:22 PM Narrative 02/25/2017 4:30 PM CDT BILATERAL HANDS 2 VIEWS HISTORY: Arthritis. Views of the left hand show mild degenerative change manifest by joint space loss and spurring at the distal interphalangeal joint of the fifth finger. Scattered mild joint space loss is seen elsewhere. There is no fracture, lytic or blastic lesion. Views of the right hand show mild degenerative change manifest by joint space loss at the distal interphalangeal joint of the fifth finger. There is no fracture, lytic or blastic lesion. Procedure Note Luis Gutierrez MD - 02/25/2017 BILATERAL HANDS 2 VIEWS HISTORY: Arthritis. Views of the left hand show mild degenerative change manifest by joint space loss and spurring at the distal interphalangeal joint of the fifth finger. Scattered mild joint space loss is seen elsewhere. There is no fracture, lytic or blastic lesion. Views of the right hand show mild degenerative change manifest by joint space loss at the distal interphalangeal joint of the fifth finger. There is no fracture, lytic or blastic lesion. IMPRESSION Degenerative changes. Edited by Jenn Sanders on 02/25/2017 4:22 PM [facility] ORDERABLES * XR FOOT BILAT 2 VIEWS (02/25/2017 4:07 PM CDT) Anatomical Region Laterality Modality Lower Extremity, Ankle / Foot Ra diographic Imaging 02/25/2017 4:19 PM CDT Impressions 02/25/2017 4:58 PM CDT Degenerative changes. Edited by Kaleigh Turpin on 02/25/2017 4:31 PM Narrative 02/25/2017 4:58 PM CDT BILATERAL FEET, TWO VIEWS. HISTORY: Joint pain. Views of the left foot show degenerative changes manifest by joint space loss and sclerosis in the small joints of the toes. There is no fracture, lytic or blastic lesion. Accessory navicular is present. Views of the right foot demonstrate degenerative change manifest by joint space loss in small joints of the toes. There is also spurring seen on the os calcis. Accessory navicular is present. Procedure Note Luis Gutierrez MD - 02/25/2017 BILATERAL FEET, TWO VIEWS. HISTORY: Joint pain. Views of the left foot show degenerative changes manifest by joint space loss and sclerosis in the small joints of the toes. There is no fracture, lytic or blastic lesion. Accessory navicular is present. Views of the right foot demonstrate degenerative change manifest by joint space loss in small joints of the toes. There is also spurring seen on the os calcis. Accessory navicular is present. IMPRESSION Degenerative changes. Edited by Kaleigh Turpin on 02/25/2017 4:31 PM [facility] ORDERABLES * PATHOLOGY TISSUE FOR DERMATOLOGY (10/24/2011 12:00 AM CDT) Result CASE: [id number] PATIENT: KELLEE BEARDEN PATHOLOGIC DIAGNOSIS: Left forearm: BENIGN VERRUCOUS KERATOSIS, INFLAMED HEALING SKIN CHANGES AND POST-INFLAMMATO RY PIGMENT ALTERATION (see microscopic description) CLINICAL DATA: R/O ISK vs bite vs dermatofibroma. GROSS DESCRIPTION: Received is one formalin filled container labeled with the patient's name and designated left forearm. The specimen consists of a [id number] piece of skin. The margin is inked green. The specimen is bisected lengthwise and submitted in 1 cassette. Jar 0. MICROSCOPIC DESCRIPTION: Sections show hyperkeratosis, focal parakeratosis containing neutrophils, papillomatosis, hypergranulosis , and acanthosis. ??These histological findings can be seen in a verruca vulgaris or a seborrheic keratosis. ??Within the dermis, there are fibroblasts, scattered lymphocytes and an edematous stroma. ??Additionally, there is a proliferation of blood vessels and melanin within melanophages around the superficial vascular plexus. Additional deeper sections were obtained and reviewed. Final Diagnosis performed by Odette Cardona M.D. Electronically signed 10/27/2011 5:23:04PM [facility] Comment: Performed at: Dermatopathology Laboratory [facility] - Department of Dermatology [address] [place] [address], [address] [place] [address] Phone number: [phone] Toll Free: [phone] FAX: [phone] 10/24/2011 10/24/2011 Dann Jeter MD LAB - PATHOLOGY/CYTO LOGY ORDERABLES Performing Organization Address City/State/[facility] Co la Phone Number [facility] [address] [phone] Care Teams Urologic Surgeon Relationship Specialty Start Date End Date Mateus Johnson DO [address] [place] [id number] PCP - General 03/12/21
--- OUTSIDE RECORDS SUMMARY | 2024-06-03 01:24 | XMS_ITS | Encounter Summary ---
Author Organization [facility] Address [address] [place] [address] Phone Care Team Providers Care Consulting Sales Executive Name Role Phone Jaime Buck MD Primary Care Provider [phone] Carlo Martinez DO Unavailable [phone] Reason for Visit * Reason Comments Medication Refill Encounter Details Date Type Department Care Team (Late st Contact Info) Description 12/14/2020 Refill [facility] - Neurology [facility] [address] [place] [address] Hitesh Enciso MD [address] [place] [phone] Medication Refill Social History Tobacco Use Types [...] neuralgia documented in this encounter Care Teams Consulting Sales Executive Relationship Specialty Start Date End Date Jaime Buck MD [address] [place] [address] PCP - General Family Medicine 03/29/15 Carlo Martinez DO [address] [place] [address] Gastroenterology 03/29/15 documented as of this encounter
== END 2024-06-01 13:39 | disposition home or self-care (01) ==
PROVIDERS: PCP Family Medicine; Visit Provider Family Medicine
DX: M89.542 Osteolysis, left hand (principal); M89.8X8 Other specified disorders of bone, other site; M77.8 Other enthesopathies, not elsewhere classified
CPT/HCPCS: 73220; A9577

== ENCOUNTER 2024-07-20 09:40 | Emergency (ER) | payer MEDICARE, SELFPAY ==
--- NOTE | ~2024-07-20 | XR_ITS ---
EXAMINATION: XR ribs RT 2V DATE: 07/20/2024 10:26 INDICATION: Right rib pain. Fall. TECHNIQUE: 2 views of the right ribs on 3 radiographs were obtained. COMPARISON: Chest 2 views 04/19/2024, CT abdomen and pelvis 01/12/2024 FINDINGS: Calcified right lung nodules and calcified right hilar lymph nodes are consistent with old granulomatous disease. No pleural effusion or pneumothorax. Median sternotomy wires are noted. There are surgical clips in the abdomen. IMPRESSION: 1. No rib fracture. Reviewed, dictated and finalized at location B. IMPRESSION: 1. No rib fracture.
[2024-07-20 09:57] VITALS: BP 117/81; PULSE 66; RESP 16; TEMP 36; O2SAT 98
--- NOTE | 2024-07-20 10:00 | ED_ITS ---
HPI - Fall General Chief Complaint: Fall Stated Complaint: FALL Time Seen by Provider: 07/20/24 10:00 Source: patient Mode of arrival: ambulatory Limitations: no limitations History of Present Illness HPI Narrative: 84 yo M presents with skin tear to R elbow and R posterior rib pain. Pt fell 2 days ago. Was bending over to picker feeder bottle of water, foot tripped over his walker and landed on R side. Denies hitting head. Was able to get up on his own. Fell again yesterday causing skin tear to R elbow. Missed step going up garage steps and fell backwards. Denies hitting head. Was only using his cane at that time and daughter states should have been lora joseph walker. Pt ambulatory with walker at [facility]. Alert and oriented. No CP or SOB. No headache or vision change. Denies N/V, dizziness. All systems reviewed and negative except as noted above. Related Data Home Medications ?Medication ?Instructions ?Recorded ?Confirmed ?Last Taken ?Type aspirin 81 mg tablet,delayed 81 mg PO QHS 03/23/19 07/20/24 1 Day Ago History release (Aspir-Low) ~03/06/24 tamsulosin 0.4 mg capsule 0.4 mg PO HS 04/24/20 07/20/24 1 Day Ago History ~03/06/24 gabapentin 300 mg capsule 300 mg PO QID 05/15/20 07/20/24 03/07/24 15:30 History bumetanide 1 mg tablet 1 mg PO DAILY 12/17/20 07/20/24 03/07/24 08:30 History carbidopa ER 25 mg-levodopa 100 mg 2 tablet PO TID 05/16/22 07/20/24 03/07/24 12:30 History tablet,extended release nitroglycerin 0.4 mg sublingual 0.4 mg sublingual PRN PRN Chest 10/23/22 07/20/24 Unknown History tablet Pain finasteride 5 mg tablet 5 mg PO DAILY 02/01/24 07/20/24 03/07/24 08:30 History polyethylene glycol 3350 17 gram 17 g PO DAILY 03/07/24 07/20/24 Unknown History oral powder packet (Miralax) tiotropium bromide 18 mcg capsule 18 mcg inhalation DAILY 03/07/24 07/20/24 03/07/24 08:30 History with inhalation device (Spiriva with HandiHaler) melatonin 5 mg capsule 15 mg PO QHS 03/16/24 07/20/24 Unknown History amoxicillin 875 mg-potassium 1 tablet PO Q12H 07/20/24 07/20/24 Unknown History clavulanate 125 mg tablet carbidopa 25 mg-levodopa 100 mg 2 tablet PO TID 07/20/24 07/20/24 Unknown History tablet Allergies Allergy/AdvReac Type Severity Reaction Status Date / Time abatacept AdvReac Flushing Verified 07/20/24 09:43 Review of Systems Review of Systems: CONSTITUTIONAL: Denies fever, chills, or sweats. EYES: Denies visual changes, redness, or discharge. ENT: Denies rhinorrhea, congestion, sore throat, or otalgia. CARDIOVASCULAR: Denies chest pain, palpitations, or edema. RESPIRATORY: Denies cough or dyspnea. GASTROINTESTINAL: Denies abdominal pain, nausea, vomiting, or diarrhea. GENITOURINARY: Denies dysuria or hematuria. SKIN: Denies rash or itching. Reports skin tear to right Elbow MUSCULOSKELETAL: Denies back pain, joint pain, or myalgia. Reports right posterior rib pain. NEUROLOGIC: Denies headache, numbness, or weakness. PSYCHIATRIC: Denies anxiety or depression. All other systems reviewed are negative, except as documented in HPI. FOR[facility] Past Medical History Medical History BPH (benign prostatic hyperplasia) Overactive bladder Pneumonitis BPH (benign prostatic hyperplasia) Dementia due to Parkinson's disease Recurrent falls Parkinson disease Hypothyroidism Rheumatoid arthritis Gastroesophageal reflux disease Hiatal hernia with gastroesophageal reflux disease and esophagitis Barretts esophagus Dysphagia Hypertension Rheumatoid arthritis of unspecified site with involvement of other organs and systems Carpal tunnel syndrome on both sides Obstructive sleep apnea With sleep study in 2020 recommending BiPAP RLS (restless legs syndrome) Chronic obstructive pulmonary disease Mild emphysematous changes noted on CT scan 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 Arthritis CHF (congestive heart failure) Echo May 2020: Normal left ventricular systolic function EF 69%, moderate concentric left ventricular hypertrophy, mild left ventricular enlargement, paradoxical septal motion consistent with bundle branch block, diastolic dysfunction grade 1, technically difficult study Coronary artery disease Surgical History Surgical History History of dental yarsani Dental implants Status post open reduction with internal fixation of fracture Knee cap Hx of cholecystectomy Status post cataract extraction of both eyes with insertion of intraocular lens History of Osvaldo fundoplication History of tonsillectomy and adenoidectomy History of uvulopalatopharyngoplasty H/O eye surgery Left eye to correct double vision History of four vessel coronary artery bypass graft Family History Family History Father Acute myocardial infarction, Onset Age: 84 Family history of coronary artery disease, Onset Age: 84 Mother Carcinoma of colon, Onset Age: 64 Sibling Family history of coronary artery disease Carcinoma of colon Social History Social History Social History: The patient sold his house in moved in with his daughter after the patient's in 2019. He was 59 years prior to his 's . He ambulates with a walker and/or cane. He used to smoke 5 or 6 cigars a day but quit in 2014. He denies any alcohol use. 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 The patient and his raised 2 of her own children and also raise the patient's sister who was 30 years younger. They took custody of the patient's sister when she was 16 after his mother had . Code status: Full code (however he would not want to be on ventilator for long- term, have a tracheostomy or a feeding tube.) Healthcare power of phd intern: Daughter Smoking packs per day: 1 Smoking cigarettes per day: 20.0 Years smoked: 25 Smoking pack-years: 25.00 Smoking status: Former smoker Tobacco type: cigarettes and cigars Smoking end date: 05/11/14 Alcohol intake: never Substance use: never Substance use type: does not use Do You Feel Safe in your Home?: Yes Lack of Transportation: No Lack of Food: Never True Current Housing: I Have Housing Concerned About Future Housing: No Difficulty Paying Gas/Electric Bills: No Difficulty Paying for Meds: No Currently Unemployed: No Education: High School Diploma/GED Difficulty w/ Childcare or Family Care: No Living arrangements: with family Additional living arrangements comments: WITH DAUGHTER Occupation/Education: retired Gender identity (if verbalized by the patient): Male Sexual Orientation (if Verbalized by the Patient): Straight or Heterosexual Spiritual care concerns: No Comments At time of signature, agree with nursing past medical, surgical, social and family history. There is no relevant family history pertinent to the presenting complaint. Exam Narrative: GENERAL: This is a well-nourished, well-developed patient, in no apparent distress. HEAD: normocephalic, atraumatic. EYES: PERRL. Sclera clear/white. Vision is grossly intact. EARS: External ears normal NOSE: External nose normal NECK: Neck supple, non-tender without lymphadenopathy, masses or thyromegaly. CARDIOVASCULAR: Regular rate and rhythm without murmurs, gallops, or rubs. RESPIRATORY: Clear to auscultation. Breath sounds equal bilaterally. No wheezes, rales, or rhonchi. MUSCULOSKELETAL: tenderness to R posterior ribs. no bruising, swelling or deformity noted SKIN: warm, Dry, no suspicious lesions or rash, good texture and turgor. skin tear right elbow ISTAP 2 approx 2cm diameter. NEURO: awake, alert, and oriented to person, place and time. There were no obvious focal neurologic abnormalities. EXTREMITIES: No joint tenderness, effusion, or edema noted. Course Course Level of Care: Express Care Visit Vital Signs Vital signs: Vital Signs Temperature 36.0 C L 07/20/24 09:57 Pulse Rate 66 07/20/24 09:57 Respiratory Rate 16 07/20/24 09:57 Blood Pressure 117/81 07/20/24 09:57 Pulse Oximetry 98 07/20/24 09:57 Oxygen Delivery Room Air 07/20/24 09:57 Temperature 36.0 C L 07/20/24 09:57 Pulse Rate 66 07/20/24 09:57 Respiratory Rate 16 07/20/24 09:57 Blood Pressure 117/81 07/20/24 09:57 Pulse Oximetry 98 07/20/24 09:57 Oxygen Delivery Room Air 07/20/24 09:57 reviewed Procedures Laceration Laceration 1: Date: 07/20/24 Time: 10:30 Site: upper extremity (elbow) Side (If applicable): right Size (cm): 2 Description: flap (skin tear) ====== Skin Level ====== Skin layer closed with: steri strips Number of sutures: 5 ====== Subcutaneous Layer ====== ====== Muscle Layer ====== ====== Tendon Layer ====== MDM - Fall MDM Narrative Medical decision making narrative: x-ray neg for fracture. discussed results with pt. No resp distress. alert and nontoxic. Please be advised this is a medical document. It is intended for [id number] communication. It is written in medical language and may contain unfamiliar abbreviations or verbiage. Medical documents are intended to carry relevant information, facts as evident, and the clinical opinion of the practitioner at the time of the encounter. This report may have been done utilizing a voice recognition system. Attempts have been made to correct errors. However, there may be uncorrected grammatical, spelling, and recognition errors present. The file time of this note does not necessarily represent the time of service. Imaging Data My impression: agree with radiologist Radiologist's impression: EXAMINATION: XR ribs RT 2V DATE: 07/20/2024 10:26 INDICATION: Right rib pain. Fall. TECHNIQUE: 2 views of the right ribs on 3 radiographs were obtained. COMPARISON: Chest 2 views 04/19/2024, CT abdomen and pelvis 01/12/2024 FINDINGS: Calcified right lung nodules and calcified right hilar lymph nodes are consistent with old granulomatous disease. No pleural effusion or pneumothorax. Median sternotomy wires are noted. There are surgical clips in the abdomen. IMPRESSION: 1. No rib fracture. Discharge Plan Discharge Clinical Impression: ISTAP type 2 skin tear of right elbow, Contusion of rib on right side Patient Disposition: Home, Self-Care Condition: Stable Instructions: Skin Tear (ED), Rib Contusion (ED) Additional Instructions: the x-ray your ribs was negative for fracture. Keep wounds clean and dry. Wash with mild soap and water. Continue taking Augmentin that was prescribed by your hand specialist. Keep Steri-Strips dry. If they do become wet, pat them dry with towel. Do not pick or pull at strips. Let them fall off on their own. Follow-up with your primary care physician as needed. Patient Language: Palestinian Prescriptions: No Action amoxicillin-pot clavulanate 875-125 mg tablet 1 tablet PO Q12H carbidopa-levodopa 25-100 mg tablet 2 tablet PO TID donepezil 10 mg tablet 10 mg PO DAILY gabapentin 300 mg capsule 300 mg PO QID tamsulosin 0.4 mg capsule 0.4 mg PO HS hydroxychloroquine [Plaquenil] 200 mg tablet 400 mg PO DAILY Qty: 180 1RF finasteride 5 mg tablet 5 mg PO DAILY melatonin 5 mg capsule 15 mg PO QHS ropinirole 1 mg tablet 6 mg PO QID Qty: 30 0RF Rx Instructions: 2 at 0830, 1 at 1530, 2 at 2200 and 1 prn aspirin [Aspir-Low] 81 mg tablet,delayed release (DR/EC) 81 mg PO QHS bumetanide 1 mg tablet 1 mg PO DAILY carbidopa-levodopa 25-100 mg tablet extended release 2 tablet PO TID nitroglycerin 0.4 mg tablet, sublingual 0.4 mg sublingual PRN PRN (Reason: Chest Pain) tiotropium bromide [Spiriva with HandiHaler] 18 mcg capsule, w/inhalation device 18 mcg inhalation DAILY Rx Instructions: 18 mcg handihaler, 30 caps, 1 cap by mouth daily (2 puffs) polyethylene glycol 3350 [Miralax] 17 gram Powder In Packet 17 g PO DAILY cyanocobalamin (vitamin B-12) [Vitamin B-12] 1,000 mcg Tablet 1,000 mcg PO QAM Qty: 30 0RF carbamazepine 200 mg tablet 200 mg PO Q12H Qty: 60 1RF pantoprazole 40 mg tablet,delayed release (DR/EC) 40 mg PO BID 90 Days Qty: 180 3RF famotidine 20 mg tablet 20 mg PO BID 90 Days Qty: 180 3RF gentamicin in NaCl (iso-osm) 120 mg/100 mL piggyback 90 mg IV Q12H albuterol sulfate 90 mcg/actuation HFA aerosol inhaler 1 - 2 puff inhalation Q4-6H PRN (Reason: shortness of breath or wheezing) Qty: 8.5 2RF levothyroxine 75 mcg tablet 75 mcg PO DAILY Qty: 90 1RF fluticasone propion-salmeterol 113-14 mcg/actuation aerosol powdr breath activated 1 inh inhalation BID Qty: 1 3RF Rx Instructions: Rinse mouth and spit after each use tiotropium bromide 2.5 mcg/actuation mist for inhalation 2.5 mcg/actuation mist 0RF mirabegron [Myrbetriq] 50 mg tablet extended release 24 hr 50 mg PO DAILY Qty: 30 2RF Follow-up/Referrals: Neyda Ba APRN [Primary Care Provider] - Time of Disposition: 10:55
== END 2024-07-20 10:05 | disposition home or self-care (01) ==
PROVIDERS: Emergency Provider Nurse Practitioner Family; PCP Nurse Practitioner Family
DX: S51.011A Laceration without foreign body of right elbow, initial encounter (principal); W10.9XXA Fall (on) (from) unspecified stairs and steps, initial encounter; S20.221A Contusion of right back wall of thorax, initial encounter; W01.0XXA Fall on same level from slipping, tripping and stumbling without subsequent striking against object, initial encounter; N40.0 Benign prostatic hyperplasia without lower urinary tract symptoms; G20.A1 Parkinson's disease without dyskinesia, without mention of fluctuations; F02.80 Dementia in other diseases classified elsewhere, unspecified severity, without behavioral disturbance, psychotic disturbance, mood disturbance, and anxiety; I11.0 Hypertensive heart disease with heart failure; I50.9 Heart failure, unspecified; E03.9 Hypothyroidism, unspecified; M06.9 Rheumatoid arthritis, unspecified; K21.9 Gastro-esophageal reflux disease without esophagitis; G25.81 Restless legs syndrome; M47.812 Spondylosis without myelopathy or radiculopathy, cervical region; M47.816 Spondylosis without myelopathy or radiculopathy, lumbar region; K22.70 Barrett's esophagus without dysplasia; J44.9 Chronic obstructive pulmonary disease, unspecified; I25.10 Atherosclerotic heart disease of native coronary artery without angina pectoris; Z95.1 Presence of aortocoronary bypass graft; Z96.1 Presence of intraocular lens; Z98.42 Cataract extraction status, left eye; Z98.41 Cataract extraction status, right eye; Z79.82 Long term (current) use of aspirin
CPT/HCPCS: 71100; 99213; G0463

== ENCOUNTER 2024-09-01 09:26 | Emergency (ER) | payer MEDICARE, SELFPAY ==
[2024-09-01 09:39] VITALS: BP 134/58; PULSE 63; RESP 16; TEMP 36.7; O2SAT 100
--- NOTE | 2024-09-01 10:08 | ED_ITS ---
HPI - Fall General Chief Complaint: Fall Stated Complaint: FALL Source: patient and RN notes reviewed Mode of arrival: ambulatory Limitations: no limitations History of Present Illness HPI Narrative: 84-year-old male presents [facility] complaining of a fall today. Patient had a ground level fall when he was getting out of bed and slipped and fell to the ground. Patient reports he scraped his right foot and fell and hit his head on the way down. He denies any loss of consciousness. Patient reports having a headache and right foot pain. Patient also says he has a bloodshot left eye from the fall. He Denies any neck pain, vision changes, blurry vision,, nausea, or vomiting. Patient has a history of Parkinson's and is prone to falling. Patient's daughter is present with patient who is his retread operator and power of ip technology transactions attorney. Patient denies being on anticoagulant but does take a baby aspirin daily. Related Data Home Medications ?Medication ?Instructions ?Recorded ?Confirmed ?Last Taken ?Type aspirin 81 mg tablet,delayed 81 mg PO QHS 03/23/19 09/01/24 1 Day Ago History release (Aspir-Low) ~03/06/24 tamsulosin 0.4 mg capsule 0.4 mg PO HS 04/24/20 09/01/24 1 Day Ago History ~03/06/24 gabapentin 300 mg capsule 300 mg PO QID 05/15/20 09/01/24 03/07/24 15:30 History bumetanide 1 mg tablet 1 mg PO DAILY 12/17/20 09/01/24 03/07/24 08:30 History carbidopa ER 25 mg-levodopa 100 mg 2 tablet PO TID 05/16/22 09/01/24 03/07/24 12:30 History tablet,extended release nitroglycerin 0.4 mg sublingual 0.4 mg sublingual PRN PRN Chest 10/23/22 09/01/24 Unknown History tablet Pain finasteride 5 mg tablet 5 mg PO DAILY 02/01/24 09/01/24 03/07/24 08:30 History polyethylene glycol 3350 17 gram 17 g PO DAILY 03/07/24 09/01/24 Unknown History oral powder packet (Miralax) melatonin 5 mg capsule 15 mg PO QHS 03/16/24 09/01/24 Unknown History carbidopa 25 mg-levodopa 100 mg 2 tablet PO TID 07/20/24 09/01/24 Unknown History tablet ropinirole 1 mg tablet 1 mg PO DAILY 09/01/24 09/01/24 Unknown History Allergies Allergy/AdvReac Type Severity Reaction Status Date / Time abatacept AdvReac Flushing Verified 09/01/24 09:33 Review of Systems Review of Systems: CONSTITUTIONAL: Denies fever, chills, or sweats. EYES: Denies visual changes, redness, or discharge. ENT: Denies rhinorrhea, congestion, sore throat, or otalgia. CARDIOVASCULAR: Denies chest pain, palpitations, or edema. RESPIRATORY: Denies cough or dyspnea. GASTROINTESTINAL: Denies abdominal pain, nausea, vomiting, or diarrhea. GENITOURINARY: Denies dysuria or hematuria. SKIN: Denies rash or itching. MUSCULOSKELETAL: Denies back pain, joint pain, or myalgia. Positive for right foot pain. NEUROLOGIC: Positive for headache. Negative for numbness, or weakness. PSYCHIATRIC: Denies anxiety or depression. All other systems reviewed are negative, except as documented in HPI. [facility] Past Medical History Medical History BPH (benign prostatic hyperplasia) Overactive bladder Pneumonitis BPH (benign prostatic hyperplasia) Dementia due to Parkinson's disease Recurrent falls Parkinson disease Hypothyroidism Rheumatoid arthritis Gastroesophageal reflux disease Hiatal hernia with gastroesophageal reflux disease and esophagitis Barretts esophagus Dysphagia Hypertension Rheumatoid arthritis of unspecified site with involvement of other organs and systems Carpal tunnel syndrome on both sides Obstructive sleep apnea With sleep study in 2020 recommending BiPAP RLS (restless legs syndrome) Chronic obstructive pulmonary disease Mild emphysematous changes noted on CT scan 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 Arthritis CHF (congestive heart failure) Echo May 2020: Normal left ventricular systolic function EF 69%, moderate concentric left ventricular hypertrophy, mild left ventricular enlargement, paradoxical septal motion consistent with bundle branch block, diastolic dysfunction grade 1, technically difficult study Coronary artery disease Surgical History Surgical History History of dental moravian Dental implants Status post open reduction with internal fixation of fracture Knee cap Hx of cholecystectomy Status post cataract extraction of both eyes with insertion of intraocular lens History of Osvaldo fundoplication History of tonsillectomy and adenoidectomy History of uvulopalatopharyngoplasty H/O eye surgery Left eye to correct double vision History of four vessel coronary artery bypass graft Family History Family History Father Acute myocardial infarction, Onset Age: 84 Family history of coronary artery disease, Onset Age: 84 Mother Carcinoma of colon, Onset Age: 64 Sibling Family history of coronary artery disease Carcinoma of colon Social History Social History Social History: The patient sold his house in moved in with his daughter after the patient's in 2019. He was 59 years prior to his 's . He ambulates with a walker and/or cane. He used to smoke 5 or 6 cigars a day but quit in 2014. He denies any alcohol use. 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 The patient and his raised 2 of her own children and also raise the patient's sister who was 30 years younger. They took custody of the patient's sister when she was 16 after his mother had . Code status: Full code (however he would not want to be on ventilator for long- term, have a tracheostomy or a feeding tube.) Healthcare power of ip technology transactions attorney: Daughter Smoking packs per day: 1 Smoking cigarettes per day: 20.0 Years smoked: 25 Smoking pack-years: 25.00 Smoking status: Former smoker Tobacco type: cigarettes and cigars Smoking end date: 05/11/14 Alcohol intake: never Substance use: never Substance use type: does not use Do You Feel Safe in your Home?: Yes Lack of Transportation: No Lack of Food: Never True Current Housing: I Have Housing Concerned About Future Housing: No Difficulty Paying Gas/Electric Bills: No Difficulty Paying for Meds: No Currently Unemployed: No Education: High School Diploma/GED Difficulty w/ Childcare or Family Care: No Living arrangements: with family Additional living arrangements comments: WITH DAUGHTER Occupation/Education: retired Gender identity (if verbalized by the patient): Male Sexual Orientation (if Verbalized by the Patient): Straight or Heterosexual Spiritual care concerns: No Comments At the time of my signature, I reviewed and agree with the nursing past medical, surgical, social, and family history. There is no relevant family history pert inent to the patient complaint. Exam Narrative: GENERAL: This is a well-nourished, well-developed adult, in no apparent distress. They are non ill-appearing, nontoxic appearing. He is sitting in a wheelchair. HEAD: normocephalic, atraumatic injury around left eye. Multiple small lacerations around the left orbit. Measuring approximately less than 1 cm, lacerations are superficial. EYES: Extraocular movements intact bilaterally. Right eye: Sclera white/normal. Conjunctiva normal. Left eye: Sclera: Subconjunctival hemorrhage present. Vision is grossly intact. Pupils PERRLA. EARS: External ears normal, auditory canals clear and without drainage, TMs normal without perforation. Hearing grossly intact. No hemotympanum bilaterally. NOSE: External nose normal with no obvious nasal discharge, nares without redness, no rhinorrhea. THROAT: Mucous membranes moist, posterior pharynx clear. Uvula midline. NECK: Neck supple, non-tender without lymphadenopathy, masses or thyromegaly. No cervical point tenderness, step-offs, or crepitus. CARDIOVASCULAR: Regular rate and rhythm without murmurs, gallops, or rubs. RESPIRATORY: Clear to auscultation. Breath sounds equal bilaterally. No wheezes, rales, or rhonchi. SKIN: warm, Dry, intact. NEURO: awake, alert, and oriented to person, place and time. There were no obvious focal neurologic abnormalities. EXTREMITIES: Right foot: No obvious deformity, swelling, bruising. Small abrasions present to the medial dorsal surface of the right foot. Patient is able to wiggle his toes, sensation is normal distal to the injury. Cap refill less than 2 seconds. Pedal pulse 2 +palpable. Patient is able to dorsiflex and plantar flex. BACK: Nontender without deformity. Course Course Emergency Course: Patient is aware of diagnosis, understands and agrees to treatment plan. Patient will proceed immediately to the emergency department [facility]. Portions of this record may have been created with voice recognition software Level of Care: Express Care Visit Vital Signs Vital signs: Vital Signs Temperature 98.1 F 09/01/24 09:39 Pulse Rate 63 09/01/24 09:39 Respiratory Rate 16 09/01/24 09:39 Blood Pressure 134/58 L 09/01/24 09:39 Pulse Oximetry 100 09/01/24 09:39 Oxygen Delivery Room Air 09/01/24 09:39 Temperature 98.1 F 09/01/24 09:39 Pulse Rate 63 09/01/24 09:39 Respiratory Rate 16 09/01/24 09:39 Blood Pressure 134/58 L 09/01/24 09:39 Pulse Oximetry 100 09/01/24 09:39 Oxygen Delivery Room Air 09/01/24 09:39 Reviewed Transfer Transfered to: [place] Transportation: Other (Private vehicle) Transfer rationale: Possible head injury requiring higher level care. Subconjunctival hemorrhage to left eye. Accepting physician: Tisha nurse practitioner MDM - Fall MDM Narrative Medical decision making narrative: Given exam findings and mechanism of injury it is recommended the patient goes the emergency department for higher level care. Patient is agreeable to go to [facility]. Call to give report to [facility] who is aware of this patient accepted the patient for transfer. Patient was advised to remain NPO and proceed immediately to the emergency department. Patient's daughter will take him to the hospital. Differential Diagnosis Differential diagnosis: Likely other (Head injury, subconjunctival hemorrhage, intracranial hemorrhage) Critical Care Time Critical Care Time Critical Care Time: No Discharge Plan Discharge Clinical Impression: Head injury Qualifiers: Encounter type: initial encounter Qualified Code(s): S09.90XA - Unspecified injury of head, initial encounter Fall Qualifiers: Encounter type: initial encounter Qualified Code(s): W19.XXXA - Unspecified fall, initial encounter Patient Disposition: Acute Care Hospital Condition: Stable Patient Language: Ukrainian Prescriptions: No Action carbidopa-levodopa 25-100 mg tablet 2 tablet PO TID ropinirole 1 mg tablet 1 mg PO DAILY gabapentin 300 mg capsule 300 mg PO QID tamsulosin 0.4 mg capsule 0.4 mg PO HS hydroxychloroquine [Plaquenil] 200 mg tablet 400 mg PO DAILY Qty: 180 1RF finasteride 5 mg tablet 5 mg PO DAILY melatonin 5 mg capsule 15 mg PO QHS aspirin [Aspir-Low] 81 mg tablet,delayed release (DR/EC) 81 mg PO QHS bumetanide 1 mg tablet 1 mg PO DAILY carbidopa-levodopa 25-100 mg tablet extended release 2 tablet PO TID nitroglycerin 0.4 mg tablet, sublingual 0.4 mg sublingual PRN PRN (Reason: Chest Pain) polyethylene glycol 3350 [Miralax] 17 gram Powder In Packet 17 g PO DAILY cyanocobalamin (vitamin B-12) [Vitamin B-12] 1,000 mcg Tablet 1,000 mcg PO QAM Qty: 30 0RF carbamazepine 200 mg tablet 200 mg PO Q12H Qty: 60 1RF levothyroxine 75 mcg tablet 75 mcg PO DAILY Qty: 90 1RF fluticasone propion-salmeterol 113-14 mcg/actuation aerosol powdr breath activated 1 inh inhalation BID Qty: 1 3RF Rx Instructions: Rinse mouth and spit after each use pantoprazole 40 mg tablet,delayed release (DR/EC) 40 mg PO BID 90 Days Qty: 180 3RF albuterol sulfate 90 mcg/actuation HFA aerosol inhaler 1 - 2 puff inhalation Q4-6H PRN (Reason: shortness of breath or wheezing) Qty: 8.5 2RF famotidine 20 mg tablet 20 mg PO BID 90 Days Qty: 180 3RF Follow-up/Referrals: Neyda Ba APRN [Primary Care Provider] - Time of Disposition: 10:08
== END 2024-09-01 10:12 | disposition short-term general hospital (02) ==
PROVIDERS: PCP Nurse Practitioner Family
DX: S09.90XA Unspecified injury of head, initial encounter (principal); W01.0XXA Fall on same level from slipping, tripping and stumbling without subsequent striking against object, initial encounter; Z87.891 Personal history of nicotine dependence; N40.0 Benign prostatic hyperplasia without lower urinary tract symptoms; G20.A1 Parkinson's disease without dyskinesia, without mention of fluctuations; F02.80 Dementia in other diseases classified elsewhere, unspecified severity, without behavioral disturbance, psychotic disturbance, mood disturbance, and anxiety; I11.0 Hypertensive heart disease with heart failure; I50.9 Heart failure, unspecified; E03.9 Hypothyroidism, unspecified; M06.9 Rheumatoid arthritis, unspecified; K21.9 Gastro-esophageal reflux disease without esophagitis; K22.70 Barrett's esophagus without dysplasia; J44.9 Chronic obstructive pulmonary disease, unspecified; M47.812 Spondylosis without myelopathy or radiculopathy, cervical region; M47.816 Spondylosis without myelopathy or radiculopathy, lumbar region; I25.10 Atherosclerotic heart disease of native coronary artery without angina pectoris; Z96.1 Presence of intraocular lens; Z98.42 Cataract extraction status, left eye; Z98.41 Cataract extraction status, right eye; Z95.1 Presence of aortocoronary bypass graft; Z79.82 Long term (current) use of aspirin
CPT/HCPCS: 99212; G0463

== ENCOUNTER 2024-09-01 10:27 | Emergency (ER) | payer MEDICARE, SELFPAY ==
--- NOTE | ~2024-09-01 | XR_ITS ---
XR foot RT min 3V Ordering provider: Stacey Mohamud MD History: . DORSAL PAIN AFTER FALL . Comparison: March 06, 2019 FINDINGS: BONES: Small bony fragment seen near to the navicular bone which may be a chip fracture and not seen in the previous examination. Soft tissue calcification also is possible. Is,No acute fracture or disl ocation. JOINT SPACES: Narrowing of the subtalar joint. Narrowing of the proximal and distal interphalangeal j oints. Osteoarthritic changes of the first metatarsophalangeal joint. No tarsal coalition. SOFT TISSUES: Normal. Calcaneal spur. Ossification of the insertion of the tendo Achilles. IMPRESSION: Possible tiny bony fragment near to the talus bone otherwise, No acute osseous abnormality of the rig ht foot. Polyarticular osteoarthritic changes. Reviewed, dictated and finalized at location A. IMPRESSION: Possible tiny bony fragment near to the talus bone otherwise, No acute osseous abnormality of the right foot. Polyarticular osteoarthritic changes.
--- NOTE | ~2024-09-01 | CT_ITS ---
EXAMINATION: CT foot RT wo con DATE: 09/01/2024 13:45 INDICATION: Assess for possible talar fracture with right foot pain post fall and abnormal radiograph . TECHNIQUE: High resolution computed tomography (CT) of the right foot was performed without intraveno us contrast. Additional sagittal and coronal reconstructions were performed. Automated exposure contr ol and iterative reconstruction technique were employed. The dose-length product was 459.10 mGy-cm. COMPARISON: None FINDINGS: Bone alignment is normal. Small os without evident donor site along the medial margin of the right ta daly near its articulation with the accessory os navicular. There is no evident donor site to suggest acute fracture. There is a similar ossicle versus osteophyte at the right left talus these are likely enthesopathic in etiology. No fractures identified. Polyarticular osteoarthritis, moderate severity with prominent dorsal osteophytes suggesting likely hallux rigidus at the right first metatarsophalan geal joint. Additional mild osteoarthritis at the ankle and majority of the joints throughout the rem ainder of the right foot. Large enthesophyte and a few small enthesopathic ossicles at the calcaneal insertion of the Achilles tendon which appears thickened distally. There are also small plantar calca conchita spurs. Small heterotopic ossicle along the right superficial deltoid ligament likely sequela of chronic sprain. IMPRESSION: 1. Degenerative changes in the right foot as detailed above. No acute osseous abnormality. Reviewed, dictated and finalized at location A. IMPRESSION: 1. Degenerative changes in the right foot as detailed above. No acute osseous a bnormality.
--- NOTE | ~2024-09-01 | XR_ITS ---
XR chest 1V Ordering provider: Stacey Mohamud MD History: 84 years Male with . FALL,WEAKNESS . Comparison: July 20, 2024 FINDINGS: MEDIASTINUM: The cardiac silhouette is slightly enlarged. Postoperative changes in the mediastinum. LUNGS: No infiltrates, effusions or pneumothorax. OTHER: No free air under the diaphragm. Degenerative changes of the spine. IMPRESSION: No acute cardiopulmonary pathology. Reviewed, dictated and finalized at location A.
--- NOTE | ~2024-09-01 | XR_ITS ---
EXAMINATION: XR elbow LT min 3V DATE: 09/01/2024 11:42 INDICATION: Left elbow pain post fall TECHNIQUE: Anteroposterior, two oblique and lateral views of the left elbow were obtained. COMPARISON: None. FINDINGS: Alignment is normal. No fracture or joint effusion. Mild osteoarthritis at the ulnotrochlear articula tion. Small olecranon spur. Soft tissues are unremarkable. IMPRESSION: 1. Mild degenerative skeletal changes at the left elbow. No joint effusion or acute osseous abnormali ty. Reviewed, dictated and finalized at location A. IMPRESSION: 1. Mild degenerative skeletal changes at the left elbow. No joint effusion or a cute osseous abnormality.
--- NOTE | ~2024-09-01 | CT_ITS ---
CT brain wo con Ordering provider: Stacey Mohamud MD History: 84 years Male with . FALL . Comparison: June 19, 2018 Technique: CT of the head without contrast. Radiation reduction technique utilized. The dose-length p roduct was 681 mGy-cm. FINDINGS: BRAIN PARENCHYMA AND CSF SPACES: Mild leukoaraiosis and diffuse cortical atrophy. Mild atheromatous d isease. No midline shift, mass effect or hemorrhage. The brain parenchyma and CSF spaces are otherwi se normal. VISUALIZED PARANASAL SINUSES: Well aerated. MASTOIDS: Well aerated. BONES: The bones appear intact. SOFT TISSUES: Visualized nasopharynx is normal. Superficial soft tissues are normal. IMPRESSION: No acute intracranial findings. Reviewed, dictated and finalized at location A.
--- NOTE | ~2024-09-01 | CT_ITS ---
CT cervical spine wo con Ordering provider: Stacey Mohamud MD History: . FALL . Comparison: None. Technique: CT of the cervical spine was performed without contrast. Sagittal and coronal reformatted images were also obtained and reviewed. Automated exposure control and iterative reconstruction fausto hnique were employed. The dose-length product was 368.67 mGy-cm. FINDINGS: VERTEBRAE: No subluxation or acute fracture. The occipital condyles are intact. Degenerative changes of the spine. DISC SPACES: Narrowing of the disc C5-C6 and C6-C7. Multilevel facet joint disease. Multilevel uncove rtebral joint osteoarthritic changes. Right intervertebral foraminal narrowing at the level of C3-C4 and C5-C6. Left narrowing at the level of C6-C7. PARASPINOUS SOFT TISSUES: Bilateral carotid atherosclerotic changes. IMPRESSION: No acute osseous abnormality cervical spine. Multilevel degenerative disc disease. Reviewed, dictated and finalized at location A.
--- NOTE | ~2024-09-01 | XR_ITS ---
XR hip RT 2V w AP pelvis Ordering provider: Stacey Mohamud MD History: . PAIN . Comparison: March 06 2019 FINDINGS: BONES: No acute fracture or dislocation. HIP JOINT SPACES: Bilateral hip severe osteoarthritic changes. SACROILIAC JOINT SPACES/LUMBAR SPINE: The sacroiliac joint spaces shows bilateral sacroiliacs. Mild d egenerative changes of the visualized lower lumbar spine. PUBIC SYMPHYSIS: Normal. SOFT TISSUES: Normal. IMPRESSION: No acute osseous abnormality pelvis and right hip. 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 Bilateral sacroiliacs. Reviewed, dictated and finalized at location A.
[2024-09-01 10:34] VITALS: BP 140/72; PULSE 62; RESP 18; TEMP 36.6; O2SAT 98
--- NOTE | 2024-09-01 11:06 | ECG_ITS ---
Test Date: 2024-09-01 12:30:11 Measurements Intervals [place] Rate: 52 P: -46 ND: 175 QRS: -45 QRSD: 134 T: 58 QT: 469 QTc: 436 Interpretive Statements SINUS BRADYCARDIA LEFT AXIS DEVIATION INTRAVENTRICULAR CONDUCTION DELAY CANNOT R/O SEPTAL INFARCT, AGE INDETERMINATE BASELINE ARTIFACT- I, III, AVL ABNORMAL ECG Compared to ECG 01/12/2024 05:00:32 NO SIGNIFICANT CHANGE Electronically Signed On 09-01-2024 13:08:22 CDT by Jaylen Mata D.O.
--- NOTE | 2024-09-01 11:06 | ED.FALL ---
HPI - Fall General Chief Complaint: Fall Stated Complaint: head injury Time Seen by Provider: 09/01/24 10:48 Source: patient and family Mode of arrival: EMS Limitations: no limitations History of Present Illness HPI Narrative: PATIENT LIVES WITH HIS DAUGHTER CAME FROM HOME BY AMBULANCE AFTER GROUND LEVEL FALL, AT 6:30 A.M.. PATIENT WENT TO URGENT CARE THEN REFERRED TO OUR EMERGENCY ROOM. HISTORY OF PARKINSON, MULTIPLE FALLS, WOKE UP THIS MORNING GOT OUT OF BED SOMEHOW LOST HIS BALANCE LANDED ON THE LEFT SIDE OF HIS BODY COMPLAINING OF LEFT FACE PAIN, LEFT ELBOW, RIGHT FOOT, NO LOSS OF CONSCIOUSNESS, HISTORY OF COPD, CHF, PARKINSON, HYPOTHYROIDISM. LAST TETANUS SHOT WITHIN FOR YEARS Related Data Home Medications ?Medication ?Instructions ?Recorded ?Confirmed ?Last Taken ?Type aspirin 81 mg tablet,delayed 81 mg PO QHS 03/23/19 09/01/24 1 Day Ago History release (Aspir-Low) ~03/06/24 tamsulosin 0.4 mg capsule 0.4 mg PO HS 04/24/20 09/01/24 1 Day Ago History ~03/06/24 gabapentin 300 mg capsule 300 mg PO QID 05/15/20 09/01/24 03/07/24 15:30 History bumetanide 1 mg tablet 1 mg PO DAILY 12/17/20 09/01/24 03/07/24 08:30 History carbidopa ER 25 mg-levodopa 100 mg 2 tablet PO TID 05/16/22 09/01/24 03/07/24 12:30 History tablet,extended release nitroglycerin 0.4 mg sublingual 0.4 mg sublingual PRN PRN Chest 10/23/22 09/01/24 Unknown History tablet Pain finasteride 5 mg tablet 5 mg PO DAILY 02/01/24 09/01/24 03/07/24 08:30 History polyethylene glycol 3350 17 gram 17 g PO DAILY 03/07/24 09/01/24 Unknown History oral powder packet (Miralax) melatonin 5 mg capsule 15 mg PO QHS 03/16/24 09/01/24 Unknown History carbidopa 25 mg-levodopa 100 mg 2 tablet PO TID 07/20/24 09/01/24 Unknown History tablet ropinirole 1 mg tablet 1 mg PO DAILY 09/01/24 09/01/24 Unknown History Allergies Allergy/AdvReac Type Severity Reaction Status Date / Time abatacept AdvReac Flushing Verified 09/01/24 10:44 Review of Systems Review of Systems: All systems reviewed & are unremarkable except as noted in HPI and below PMFSH Past Medical History Medical History BPH (benign prostatic hyperplasia) Overactive bladder Pneumonitis BPH (benign prostatic hyperplasia) Dementia due to Parkinson's disease Recurrent falls Parkinson disease Hypothyroidism Rheumatoid arthritis Gastroesophageal reflux disease Hiatal hernia with gastroesophageal reflux disease and esophagitis Barretts esophagus Dysphagia Hypertension Rheumatoid arthritis of unspecified site with involvement of other organs and systems Carpal tunnel syndrome on both sides Obstructive sleep apnea With sleep study in 2020 recommending BiPAP RLS (restless legs syndrome) Chronic obstructive pulmonary disease Mild emphysematous changes noted on CT scan 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 Arthritis CHF (congestive heart failure) Echo May 2020: Normal left ventricular systolic function EF 69%, moderate concentric left ventricular hypertrophy, mild left ventricular enlargement, paradoxical septal motion consistent with bundle branch block, diastolic dysfunction grade 1, technically difficult study Coronary artery disease Surgical History Surgical History History of dental denominational Dental implants Status post open reduction with internal fixation of fracture Knee cap Hx of cholecystectomy Status post cataract extraction of both eyes with insertion of intraocular lens History of Osvaldo fundoplication History of tonsillectomy and adenoidectomy History of uvulopalatopharyngoplasty H/O eye surgery Left eye to correct double vision History of four vessel coronary artery bypass graft Family History Family History Father Acute myocardial infarction, Onset Age: 84 Family history of coronary artery disease, Onset Age: 84 Mother Carcinoma of colon, Onset Age: 64 Sibling Family history of coronary artery disease Carcinoma of colon Social History Social History Social History: The patient sold his house in moved in with his daughter after the patient's in 2019. He was 59 years prior to his 's . He ambulates with a walker and/or cane. He used to smoke 5 or 6 cigars a day but quit in 2014. He denies any alcohol use. 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 The patient and his raised 2 of her own children and also raise the patient's sister who was 30 years younger. They took custody of the patient's sister when she was 16 after his mother had . Code status: Full code (however he would not want to be on ventilator for long-term, have a tracheostomy or a feeding tube.) Healthcare power of employee benefits attorney: Daughter Smoking packs per day: 1 Smoking cigarettes per day: 20.0 Years smoked: 25 Smoking pack-years: 25.00 Smoking status: Former smoker Tobacco type: cigarettes and cigars Smoking end date: 05/11/14 Alcohol intake: never Substance use: never Substance use type: does not use Do You Feel Safe in your Home?: Yes Lack of Transportation: No Lack of Food: Never True Current Housing: I Have Housing Concerned About Future Housing: No Difficulty Paying Gas/Electric Bills: No Difficulty Paying for Meds: No Currently Unemployed: No Education: High School Diploma/GED Difficulty w/ Childcare or Family Care: No Living arrangements: with family Additional living arrangements comments: WITH DAUGHTER Occupation/Education: retired Gender identity (if verbalized by the patient): Male Sexual Orientation (if Verbalized by the Patient): Straight or Heterosexual Spiritual care concerns: No Exam Narrative: GENERAL APPEARANCE: WELL-DEVELOPED, WELL-NOURISHED SKIN: NORMAL COLOR HEAD: NORMOCEPHALIC, 1 CM SUPERFICIAL LACERATION LEFT EYEBROW, NO GAPPING, SURROUNDED BY BRUISES EYES: SUBCONJUNCTIVAL HEMORRHAGE LEFT EYE LATERALLY, EXTRAOCULAR MUSCLE MOVEMENT INTACT PUPIL ROUND REACTIVE TO LIGHT BILATERALLY ENT: OROPHARYNX NORMAL, EARS NORMAL, NOSE NORMAL NECK: SUPPLE, NONTENDER CHEST AND RESPIRATORY: AIRWAY PATENT, NO RESPIRATORY DISTRESS, NO ACCESSORY MUSCLE USE HEART: REGULAR RATE/RHYTHM ABDOMEN: SOFT, NONTENDER, NO ORGANOMEGALY, QUIET BOWEL SOUNDS VASCULAR: NORMAL PERIPHERAL PULSES, NORMAL CAPILLARY REFILL. MUSCULOSKELETAL: RIGHT FOOT BRUISES MEDIALLY, LEFT ELBOW BRUISES WITH GOOD RANGE OF MOTION NEUROLOGIC: ALERT AND ORIENTED ?3, CALIBRATOR BAROMETERS IS NORMAL TESTED, NO GROSS MOTOR DEFICIT Course Vital Signs Vital signs: Vital Signs Temperature 36.6 C 09/01/24 10:34 Pulse Rate 62 09/01/24 10:34 Respiratory Rate 18 09/01/24 10:34 Blood Pressure 140/72 09/01/24 10:34 Pulse Oximetry 98 09/01/24 10:34 Oxygen Delivery Room Air 09/01/24 10:34 Temperature 36.6 C 09/01/24 10:34 Pulse Rate 57 L 09/01/24 12:39 Respiratory Rate 18 09/01/24 12:39 Blood Pressure 147/68 H 09/01/24 12:39 Pulse Oximetry 100 09/01/24 12:39 Oxygen Delivery Room Air 09/01/24 10:34 MDM - Fall Lab Data 09/01/24 11:58 09/01/24 11:58 Labs: Lab Results 09/01/24 Range/Units 11:58 WBC 4.3 L (4.5-10.0) K/mm3 RBC 3.82 L (4.6-6.20) M/mm3 Hgb 12.5 L (14.0-18.0) g/dL Hct 38.0 L (42.0-52.0) % MCV 99.5 (80-100) fl MCH 32.7 (26-34) pg MCHC 32.9 (32-36) g/dl RDW 12.9 (11.5-14.5) % Plt Count 172 (150-375) k/mm3 MPV 10.5 H (7.4-10.4) fl Immature Gran % (Auto) 0.2 (0-0.5) % Neut % (Auto) 69.2 (45.5-73.1) % Lymph % (Auto) 16.4 L (18.3-44.2) % [place] % (Auto) 10.0 H (2.6-8.5) % Eos % (Auto) 3.7 (0-4.4) % Baso % (Auto) 0.5 (0.2-1.2) % Lymph # (Auto) 0.70 L (0.9-3.2) K/mm3 [place] # (Auto) 0.4 (0.1-0.6) K/mm3 Eos # (Auto) 0.2 (0-0.3) K/mm3 Baso # (Auto) 0.0 (0.0-0.1) K/mm3 Abs Immat Gran (auto) 0.01 (0.00-0.031) K/mm3 Absolute Neuts (auto) 3.0 (1.3-6.7) K/mm3 Absolute Nucleated RBC 0.000 (0.0-0.012) K/mm3 Nucleated RBC % 0.0 (0.0-0.2) % PT 12.8 (11.1-14.7) Seconds INR 0.9 APTT 32.5 (22.3-36.8) Seconds Sodium 141 (137-145) mmol/L Potassium 3.9 (3.4-5.0) mmol/L Chloride 102 (98-107) mmol/L Carbon Dioxide 29 (22-30) mmol/L Anion Gap 10 (4-12) mmol/L BUN 26 H (9-20) mg/dL Creatinine 0.92 (0.7-1.3) mg/dL Estim Creat Clear Calc 48 ml/min Estimated GFR > 60 (59 - ) Glucose 87 (65-110) mg/dL Calcium 8.8 (8.4-10.2) mg/dL Total Bilirubin 0.4 (0.2-1.3) mg/dL AST 22 (17-59) U/L ALT 8 (6-50) U/L Alkaline Phosphatase 149 H (38-126) U/L Total Protein 7.0 (6.3-8.2) g/dL Albumin 4.3 (3.5-5.1) g/dL Urine Color Yellow (Yellow) Urine Appearance Clear (Clear) Urine pH 6.5 (5.0-9.0) Ur Specific [place] 1.008 (1.001-1.035) Urine Protein Negative (Negative) mg/dL Urine Glucose (UA) Negative (Negative) mg/dL Urine Ketones Negative (Negative) mg/dL Ur Blood (Man) Negative (Negative) Urine Nitrate Negative (Negative) Urine Bilirubin Negative (Negative) Urine Urobilinogen 0.2 (<2.0) mg/dL Leukocyte Esterase Rfl Negative (Negative) THEA/UL Imaging Data My impression: Impressions Head CT 09/01/24 11:24 IMPRESSION: No acute intracranial findings. Cervical Spine CT 09/01/24 11:42 IMPRESSION: No acute osseous abnormality cervical spine. Multilevel degenerative disc disease. Chest X-Ray 09/01/24 11:50 IMPRESSION: No acute cardiopulmonary pathology. Elbow X-Ray 09/01/24 11:50 IMPRESSION: 1. Mild degenerative skeletal changes at the left elbow. No joint effusion or acute osseous abnormality. Foot X-Ray 09/01/24 11:53 IMPRESSION: Possible tiny bony fragment near to the talus bone otherwise, No acute osseous abnormality of the right foot. Polyarticular osteoarthritic changes. Hip/Pelvis X-Ray 09/01/24 12:05 IMPRESSION: No acute osseous abnormality pelvis and right hip. 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 Bilateral sacroiliacs. Foot CT 09/01/24 13:50 IMPRESSION: 1. Degenerative changes in the right foot as detailed above. No acute osseous abnormality. Radiologist's impression: Impressions Head CT 09/01/24 11:24 IMPRESSION: No acute intracranial findings. Cervical Spine CT 09/01/24 11:42 IMPRESSION: No acute osseous abnormality cervical spine. Multilevel degenerative disc disease. Chest X-Ray 09/01/24 11:50 IMPRESSION: No acute cardiopulmonary pathology. Elbow X-Ray 09/01/24 11:50 IMPRESSION: 1. Mild degenerative skeletal changes at the left elbow. No joint effusion or acute osseous abnormality. Foot X-Ray 09/01/24 11:53 IMPRESSION: Possible tiny bony fragment near to the talus bone otherwise, No acute osseous abnormality of the right foot. Polyarticular osteoarthritic changes. Hip/Pelvis X-Ray 09/01/24 12:05 IMPRESSION: No acute osseous abnormality pelvis and right hip. 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 Bilateral sacroiliacs. Discharge Plan Discharge Clinical Impression: Fall, Contusion Patient Disposition: Home Condition: Stable Instructions: Contusion in Adults (ED), Fall Prevention (ED) Additional Instructions: RETURN IF SYMPTOMS ARE WORSENING , CALL YOUR FAMILY PHYSICIAN FOR APPOINTMENT, TAKE TYLENOL NEEDED FOR ACHES AND PAIN, CONTINUE HOME MEDICATIONS. Patient Language: Slovenian Prescriptions: No Action carbidopa-levodopa 25-100 mg tablet 2 tablet PO TID ropinirole 1 mg tablet 1 mg PO DAILY gabapentin 300 mg capsule 300 mg PO QID tamsulosin 0.4 mg capsule 0.4 mg PO HS hydroxychloroquine [Plaquenil] 200 mg tablet 400 mg PO DAILY Qty: 180 1RF finasteride 5 mg tablet 5 mg PO DAILY melatonin 5 mg capsule 15 mg PO QHS aspirin [Aspir-Low] 81 mg tablet,delayed release (DR/EC) 81 mg PO QHS bumetanide 1 mg tablet 1 mg PO DAILY carbidopa-levodopa 25-100 mg tablet extended release 2 tablet PO TID nitroglycerin 0.4 mg tablet, sublingual 0.4 mg sublingual PRN PRN (Reason: Chest Pain) polyethylene glycol 3350 [Miralax] 17 gram Powder In Packet 17 g PO DAILY cyanocobalamin (vitamin B-12) [Vitamin B-12] 1,000 mcg Tablet 1,000 mcg PO QAM Qty: 30 0RF carbamazepine 200 mg tablet 200 mg PO Q12H Qty: 60 1RF levothyroxine 75 mcg tablet 75 mcg PO DAILY Qty: 90 1RF fluticasone propion-salmeterol 113-14 mcg/actuation aerosol powdr breath activated 1 inh inhalation BID Qty: 1 3RF Rx Instructions: Rinse mouth and spit after each use pantoprazole 40 mg tablet,delayed release (DR/EC) 40 mg PO BID 90 Days Qty: 180 3RF albuterol sulfate 90 mcg/actuation HFA aerosol inhaler 1 - 2 puff inhalation Q4-6H PRN (Reason: shortness of breath or wheezing) Qty: 8.5 2RF famotidine 20 mg tablet 20 mg PO BID 90 Days Qty: 180 3RF Follow-up/Referrals: Neyda Ba APRN [Primary Care Provider] -
--- OUTSIDE RECORDS SUMMARY | 2024-09-01 11:45 | XMS_ITS | Clinical Summary ---
Author Organization [facility] Address [address] [place] [address] Care Team Providers Care Compliance Testing Analyst Name Role Phone Mateus Johnson DO Primary Care Provider [phone] Source Comments [facility],non-owned Affiliates and Associated Physician Practices is amultiple site organization consisting of ambulatory clinics and hospital sitesin [place], [place], [place] and [place]. This disclosure is being madepursuant to the Care Everywhere program and may not contain all information available regarding this patient. Last updated 18.[facility] Allergies Active Allergy Reactions Criticality Noted Date Comments Abatacept Other Low 04/22/2019 Face flushing Face flushing Morphine Unknown 12/29/2019 Medications * Be aware that medications may not be up to date on this document. Alwaysverify current medications with the patient. albuterol HFA (PROVENTIL;VENT GINI;PROAIR) 108 (90 Base) [...] and evening meal 60 tablet 5 Active pantoprazole EC (Protonix) 40 MG tablet [...] daily before breakfast 45 tablet 5 Active Active Problems Problem Noted Date Diagnosed Date Osteoarthritis of left index finger 05/12/2024 Social History Tobacco Use Types Packs/Day Years Used Date Smoking Tobacco: Never Assessed Sex and Gender Information Value Date Recorded Sex Assigned at Not on file Legal Sex Male 2:35 PM CDT Gender Identity Not on file Sexual Orientation Not on file Last Filed Vital Signs Vital Sign Reading Time Taken Comments Blood Pressure 132/63 05/13/2024 9:50 AM PULP MILL OPERATOR Pulse 55 05/13/2024 9:50 AM PULP MILL OPERATOR Temperature 36.3 C (97.3 F) 05/13/2024 9:50 AM PULP MILL OPERATOR Respiratory Rate 18 05/13/2024 9:50 AM PULP MILL OPERATOR Oxygen Saturation 98% 05/13/2024 9:50 AM PULP MILL OPERATOR Inhaled Oxygen Concentration - - Weight 82.1 kg (181 lb) 05/13/2024 4:36 AM PULP MILL OPERATOR Height 157.5 cm (5' 2 ) 05/13/2024 4:36 AM PULP MILL OPERATOR Body Mass Index 33.11 05/13/2024 4:36 AM PULP MILL OPERATOR Plan of Treatment Health Maintenance Due Date Last Done Comments MEDICARE AWV 12 MONTHS 1938 DTAP/TDAP/TD VACCINES (1 - Tdap) 1957 PNEUMOCOCCAL VACCINE 50+ (1 of 2 - PCV) 1957 ZOSTER VACCINE (1 of 2) 02/07/1988 Respiratory Syncytial Virus (RSV) Vaccine Pt: or over 60 yrs (1 - 1-dose 75+ series) 2013 COVID-19 VACCINE (4 - season) 2024 12/29/2020, 07/30/2020, 06/28/2020 DEPRESSION SCREENING 05/11/2024 INFLUENZA VACCINE (Season Ended) 2025 01/21/2020, 02/01/2019, 02/08/2018, Additional history exists HEPATITIS B VACCINE Aged Out No longe r eligible based on patient's age to complete this topic HIB VACCINE Aged Out No longer eligi ble based on patient's age to complete this topic HPV VACCINE Aged Out No longer eligi ble based on patient's age to complete this topic MENINGOCOCCAL (Group B) VACCINE SHARED DECISION-MAKING Aged Out No longer eligible based on patient's age to complete this topic MENINGOCOCCAL GROUPS A/C/Y/W VACCINE Aged Out No longer eligible based on patient's age to complete this topic Insurance MEDICARE [facility] Advance Directives Documents on File Type Date Recorded Patient Building Official Expl anation Healthcare Power of Production Cook 05/18/2020 Medical POA * Full Code (Latest Code Status on File) Date Activated Date Inactivated Comments 05/12/2024 6:15 PM 05/13/2024 4:05 PM Care Teams Compliance Testing Analyst Relationship Specialty Start Date End Date Mateus Johnson DO [address] [facility] [address] [place] [address] PCP - General 03/12/21
--- OUTSIDE RECORDS SUMMARY | 2024-09-01 11:45 | XMS_ITS | Clinical Summary ---
Author Organization [id number] Address [address] [place] [address] Care Team Providers Care Ticket Attendant Name Role Phone Jaime Buck MD Primary Care Provider [phone] Allergies Active Allergy Reactions Criticality Noted Date Comments Abatacept Other (See Comments) 04/22/2019 Face flushing Morphine Other (See Comments),Unknown Low 020 Medications pantoprazole (PROTONIX) 40 mg Tablet, Delayed Release (E.C.) Take 40 mg by mouth 2 times daily. Active levothyroxine 75 mcg tablet Take 75 mcg by mouth daily. 07/03/19 22 Active Docusate Sodium 100 mg Tablet 200 mg daily at bedtime. Active carBAMazepine (TEGretol) 200 mg tablet Take 200 mg by mouth. 21 Active albuterol sulfate 90 mcg/Actuation inhaler Take 2 Puffs by inhalation. Active tiotropium (Spiriva Respimat) 2.5 mcg/actuation Mist Active tamsulosin (FLOMAX) 0.4 mg capsule tamsulosin 0.4 mg capsule 03/19/20 20 Active hydrOXYchloroQ UINE (PLAQUENIL) 200 mg tablet hydroxychloroquine 200 mg tablet Active gabapentin (NEURONTIN) 300 mg capsule gabapentin 300 mg capsule 04/03/20 20 Active famotidine (PEPCID) 20 mg tablet famotidine 20 mg tablet TAKE 1 TABLET BY MOUTH TWICE DAILY 05/21/19 22 Active carbidopa-levo dopa (SINEMET) 25-100 mg tablet 08/04/19 22 Active bumetanide (BUMEX) 1 mg tablet bumetanide 1 mg tablet TAKE 1 TABLET BY MOUTH TWICE DAILY FOR 1 DAY THEN TAKE 1 TABLET BY MOUTH EVERY DAY 07/26/19 22 Active aspirin 81 mg Capsule Active rOPINIRole (REQUIP) 1 mg tablet ropinirole 1 mg tablet TAKE 3 TABLETS BY MOUTH FIVE TIMES DAILY NEEDED Active Active Problems Problem Noted Date Diagnosed Date Binocular vision disorder with diplopia 09/11/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, lumbar deb on, with neurogenic claudication 04/19/2019 Family History Medical History Relation Name Comments Other Brother lung disease Heart Disease Father Cancer Mother Heart Disease Sister Relation Name Status Comments Brother Father Mother Sister Social History Tobacco Use Types Packs/Day Years Used Date Smoking Tobacco: Former Cigars Q uit: 2014 Smokeless Tobacco: Never Tobacco Cessation:Counseling Given: Not Answered Alcohol Use Standard Drinks/Week Comments Never 0 (1 standard drink = 0.6 oz pur e alcohol) Sex and Gender Information Value Date Recorded Sex Assigned at Not on file Legal Sex Male 12:31 PM CDT Gender Identity Not on file Sexual Orientation Not on file Occupation Industry Job Start Date Job End Date Not on file Not on file Not on file Not on file Last Filed Vital Signs Vital Sign Reading Time Taken Comments Blood Pressure 155/65 02/28/2022 3:44 PM CDT Pulse 69 02/28/2022 3:44 PM CDT Temperature 36.3 C (97.3 F) 02/28/2022 3:44 PM CDT Respiratory Rate 18 02/28/2022 3:44 PM CDT Oxygen Saturation 96% 02/28/2022 3:44 PM CDT Inhaled Oxygen Concentration - - Weight 84.5 kg (186 lb 4.8 oz) 02/28/2022 10:50 AM CDT Height 165.1 cm (5' 5 ) 02/12/2022 11:57 AM CDT Body Mass Index 31 02/12/2022 11:57 AM CDT Plan of Treatment Health Maintenance Due Date Last Done Comments DTAP/TDAP/TD VACCINES (1 - Tdap) 1957 ZOSTER VACCINE (1 of 2) 1957 RSV VACCINE (60+ or ) (1 - 1-dose 75+ series) 2013 INFLUENZA VACCINE (#1) 2023 , 01/21/2020, 01/21/2020, Additional history exists COVID-19 Vaccine (2023- 5 season) 2024 12/29/2020, 07/30/2020, 06/28/2020 PNEUMOCOCCAL VACCINE 50+ YEARS Completed 1 , 02/18/2017, 05/11/2009 Medical Devices Implanted Type Area Recovery Assistant Device Identifier Shelf Expiration Date Model / Serial / Lot Hemostatic Surgiflo 8ml W/Thrombin 2994 - [id number] Implanted:Qty: 1 on 05/18/2019 by Tani Mcleod MD at [facility] N/A: Spine Lumbar [employer] 03/10/2020 [id number] / / [id number] Insurance [address] [id number] MEDICARE PART A AND B [facility] Advance Directives For more information, please contact: [phone] * Full Code (Latest Code Status on File) Date Activated Date Inactivated Comments 02/28/2022 11:10 AM 02/28/2022 5:54 PM * Full Code Date Activated Date Inactivated Comments 05/18/2019 10:00 AM 05/18/2019 3:39 PM Care Teams Ticket Attendant Relationship Specialty Start Date End Date Jaime Buck MD [address] [place] [id number] PCP - General Family Practice 03/08/19
--- OUTSIDE RECORDS SUMMARY | 2024-09-01 11:45 | XMS_ITS | Clinical Summary ---
Author Organization [facility] Address [address] [place] [address] [address] [place] [address] Phone Care Team Providers Care Hat Blocker Name Role Phone Jaime Buck MD Primary Care Provider [phone] Carlo Martinez DO Unavailable [phone] Allergies Active Allergy Reactions Criticality Noted Date [...] 67 12/29/2019 1:31 PM CDT Temperature 36.4 C (97.5 F) 12/29/2019 1:31 PM CDT Respiratory Rate 17 12/29/2019 1:31 PM CDT Oxygen Saturation 96% 12/29/2019 1:31 PM CDT Inhaled Oxygen Concentration - - Weight 93 kg (205 lb) 05/28/2020 9:09 AM OUT OF SCHOOL HOURS CARE WORKER Adarsh bal Height 170.2 cm (5' 7 ) 05/28/2020 9:09 AM OUT OF SCHOOL HOURS CARE WORKER Body Mass Index 32.11 05/28/2020 9:09 AM OUT OF SCHOOL HOURS CARE WORKER Plan of Treatment Health Maintenance Due [...] patient's age to complete [place] [address] MEDICARE [facility] Advance Directives Documents on File Type Date Recorded 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
--- OUTSIDE RECORDS SUMMARY | 2024-09-01 11:46 | XMS_ITS | Continuity of Care Document ---
Author Organization [facility] Address [address] [place] [address] [place] [address] Phone Care Team Providers Care Computer Animator Name Role Phone Will Elias Unavailable Unavailable [...] Copied on Encounter Office/outpat ient Visit, [facility], [address] [place] [address] [address], [place], [place], [id number], [place] tel:[phone] [facility] No Information 5-201 0 Krishnasamy Will. [address] [facility] [address], [place], [place], [facility], [place]. tel:[phone] [facility], [address] [place] [address] [address], [place], [place], [id number], [place] tel:[phone] [facility] No Information 2-200 9 Krishnasamy Will. [address] [facility] [address], [place], [address], [place]. tel:[phone] Referring Provider: Will garcía [address] [facility], [place], [facility]. tel:[phone] Office/outpat ient Visit, [facility], [address] [place] [address] [address], [place], [place], [id number], tel:[phone] [facility] No Information Jan-0 3-200 9 Krishnasamy Will. [address] [facility] [address], [place], [facility], . tel:[phone] Referring Provider: Carlo Blum, [address] [place] [address] [address], [place], [facility]. tel:[phone] Office/outpat ient Visit, [facility], [address] [place] [address] [address], [place], [place], [id number], tel:[phone] [facility] No Information [address] Carlo. [address] [place] [address] , [address], [place], [facility], . tel:[phone] [facility], [address] [place], [place] [address], [place], [place], [id number], tel:[phone] [facility] No Information 9-200 9 Krishnasamy Will. [facility] [address], [place], [facility], . tel:[phone] Family History Family Member Type Diagnosis Age At Onset No Information Payers Payer name Insurance type Covered alliance party ID Authoriza tion(s) Medicare [facility] [id number] [employer] Commercial [place] [id number] Social History Type Description Quantity Date Captured [...]
--- OUTSIDE RECORDS SUMMARY | 2024-09-01 11:46 | XMS_ITS | Encounter Summary ---
Author Organization [facility] Address [address] [place] [address] Phone Care Team Providers Care Aviation Medicine Specialist Name Role Phone Jaime Buck MD Primary Care Provider [phone] Carlo Martinez DO Unavailable [phone] Reason for Visit * Reason Comments Medication Refill Encounter Details Date Type Department Care Team (Late st Contact Info) Description 09/05/2020 Refill [facility] - Neurology - [place] [address] [place] [address] Hitesh Enciso MD [address] [place] [id number] Medication Refill Social History Tobacco Use Types [...] neuralgia documented in this encounter Care Teams Aviation Medicine Specialist Relationship Specialty Start Date End Date Jaime Buck MD [address] [place] [address] PCP - General Family Medicine 03/29/15 Carlo Martinez DO [address] [place] [address] Gastroenterology 03/29/15 documented as of this encounter
--- OUTSIDE RECORDS SUMMARY | 2024-09-01 11:46 | XMS_ITS | Encounter Summary ---
Author Organization [facility] Address [address] [place] [address] Phone Care Team Providers Care Marine Oil Terminal Superintendent Name Role Phone Jaime Buck MD Primary Care Provider [phone] Carlo Martinez DO Unavailable [phone] Reason for Visit * Reason Comments Medication Refill Encounter Details Date Type Department Care Team (Late st Contact Info) Description 12/14/[address] [facility] - [facility] [address] [place] [address] Hitesh Enciso MD [address] [place] [id number] Medication Refill Social History Tobacco Use Types [...] neuralgia documented in this encounter Care Teams [employer] Superintendent Relationship Specialty Start Date End Date Jaime Buck MD [address] [place] [address] PCP - General Family Medicine 03/29/15 Carlo Martinez DO [address] [place] [address] Gastroenterology 03/29/15 documented as of this encounter
--- OUTSIDE RECORDS SUMMARY | 2024-09-01 11:46 | XMS_ITS | Encounter Summary ---
Author Organization [facility] Address [address] [place] [address] Phone Care Team Providers Care Talent Scout Name Role Phone Jaime Buck MD Primary Care Provider [phone] Carlo Martinez DO Unavailable [phone] Reason for Visit * Reason Comments Medication Refill Encounter Details Date Type Department Care Team (Late st Contact Info) Description 01/07/2021 Refill [facility] - [facility]rology [facility] [address] [place] [address] Hitesh Enciso MD [address] [place] [id number] Medication Refill Social History Tobacco Use Types [...] on filedocumented in this encounter Care Teams Talent Scout Relationship Specialty Start Date End Date Jaime Buck MD [address] [place] [address] PCP - General Family Medicine 03/29/15 Carlo Martinez DO [address] [place] [address] Gastroenterology 03/29/15 documented as of this encounter
--- OUTSIDE RECORDS SUMMARY | 2024-09-01 11:46 | XMS_ITS | Clinical Summary ---
Author Organization [facility] [place] [address] Address [address] [place] [address] Care Team Providers Care Power Brake Operator Name Role Phone Tristin HSU MD, Ochoa Maddox Unavailable Theresa Plasencia DPT Unavailable [phone] Jenni Ochoa MD Unavailable [phone] Jaonn HSU MD PhD, Benito Palafox Unavailable Ez Ansari MD Unavailable Jevon Mohr MD Unavailable Neyda Ba NP Primary Care Provider [phone] Nehal Price MD Unavailable [phone] Allergies Active Allergy Reactions Criticality Noted Date Comments Abatacept Other (See comments) Low 04/22/2019 Face flushing Medications aspirin (ASPIR-81) 81 mg tablet take 1 tablet by oral route every day 0 [address] (PROTONIX) 40 mg EC tablet take 1 tablet by oral route every day 0 0 5 Active Additional Information Patient taking differently:40 mgoral 2 times daily, Take 1 tablet twice a day., Reported on 08/26/2024 levothyroxine (SYNTHROID) 75 mcg tablet Take 1 tablet (75 mcg total) by mouth pot room tapper before breakfast 3 9 Active hydrOXYchloroQ UINE (PLAQUENIL) 200 mg tablet Take 2 tablets (400 mg total) by mouth daily Active tamsulosin (FLOMAX) 0.4 mg extended release capsule Take 1 capsule (0.4 mg total) by mouth nightly Active albuterol HFA (PROVENTIL HFA,VENTOLIN HFA,PROAIR HFA) 90 mcg/actuation inhaler Inhale 2 puffs as needed for wheezing Active famotidine (PEPCID) 20 mg tablet Take 1 tablet (20 mg total) by mouth 2 (two) times a day 2 Active gabapentin (NEURONTIN) 300 mg capsuleIndicat ions:Restless leg syndrome Take 1 capsule (300 mg total) by mouth 4 (four) times a day 360 capsule 3 4 Active finasteride (PROSCAR) 5 mg tablet Take 1 tablet (5 mg total) by mouth daily 4 Active carbidopa-levo dopa (SINEMET) 25-100 mg per tabletIndicati ons:Parkinson disease (HCC) TAKE 2 TABLETS BY MOUTH THREE TIMES DAILY 540 tablet 3 4 Active polyethylene glycol (MIRALAX) 17 gram/dose bulk powder Take 17 g by mouth daily Active nitroglycerin (NITROSTAT) 0.[address] ONE TABLET UNDER TONGUE NEEDED FOR CHEST PAIN, MAY REPEAT EVERY 5 MINUTES, UP TO 3 DOSES TOTAL 25 tablet 2 4 Active rOPINIRole (REQUIP) 1 mg tablet TAKE 2 TABLETS BY MOUTH EVERY DAY AT 6AM, TAKE 1 TABLET BY MOUTH EVERY DAY AT 3:30PM AND TAKE 3 TABLETS EVERY DAY AT 10PM 540 tablet 3 4 Active Additional Information Patient taking differently: TAKE 2 TABLETS BY MOUTH EVERY DAY AT 6AM, TAKE 1 TABLET BY MOUTH EVERY DAY AT 3:30PM AND TAKE 2 TABLETS EVERY DAY AT 10PM, Reported on 08/26/2024 acetaminophen (TYLENOL) 500 mg tablet Takes at night 4 Active clobetasoL (TEMOVATE) 0.05 % ointment Apply topically 2 (two) times a day Active carBAMazepine (TEGretol) 200 mg tablet TAKE 1 TABLET BY MOUTH TWICE DAILY 180 tablet 3 4 Active bumetanide (BUMEX) 1 mg tabletIndicati ons:Bilateral lower extremity edema Take 2 tablets (2 mg total) by mouth daily 60 tablet 11 5 Active mirabegron ER (MYRBETRIQ) 50 mg tablet extended release 24 hr Take 1 tablet (50 mg total) by mouth 08/27/19 25 Discontin ued(Thera py completed ) traMADoL (ULTRAM) 50 mg tablet Take 1 tablet (50 mg total) by mouth every 6 (six) hours as needed for pain 15 tablet 5 08/27/19 25 Discontin ued(Thera py completed ) amoxicillin-cl avulanate (AUGMENTIN) 875-125 mg per tablet Take 1 tablet by mouth 2 (two) times a day 14 tablet 5 08/27/19 25 Discontin ued(Thera py completed ) bumetanide (BUMEX) 1 mg tabletIndicati ons:Bilateral lower extremity edema Take 2 tablets (2 mg total) by mouth daily 30 tablet 11 5 08/12/19 25 Discontin ued(Reord er) Active Problems Problem Noted Date Diagnosed Date Pyogenic inflammation of bone 06/14/2024 Pain of finger of left hand 06/14/2024 Acute osteomyelitis of phalanx of hand, left 07/2024 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 We discussed another swallow evaluation, but they prefer to hold off. Diplopia has extensively evaluated by Neuro-Ophtalmology (Dr. Montero), and is suspected to be PD-related. I recommend the following: Continue carbidopa/levodopa. Okay to take extra tab before [employer] games. Cut back ropinirole from 6 tabs [...] wonder if this is related to adverse COMMUNICATIONS EQUIPMENT SUPERVISOR effects of these medications. He can try [...] he has had a swallow study with BAG SEALER in 2020. We discussed another swallow evaluation, [...] carbidopa/levodopa. Okay to take extra tab before [employer] games. Continue ropinirole. Continue gabapentin. We discussed [...] with applesauce, pudding or yogurt; or dissolving [id number] pills in OJ or grape juice. No [...] sleepiness. Assessment & Plan (04/28/2022 3:53 PM PHYSICIAN RELATIONS MANAGER): PD remains well controlled on his current [...] twice a day 5. Follow-up with your Neuro-Stained Glass Glazier 6. Referral to Physical Therapy Assessment & [...] RF, CCP neg 02/24 [facility] without rheumatoid factor 02/27/2017 Overview (02/17/2018): Cxr neg 02/24 Gaye [...] related to a rheumatological cause. Has seen ammonia distiller and lens coating technician for this issue. Assessment & Plan (12/31/2017 [...] in sister. Coronary artery disease invo lving pechanga coronary artery of pechanga heart without angina pectoris 12/19/2016 Essential hypertension 12/19/2016 MOSHER (dyspnea on exertion) 12/19/2016 Assessment & Plan (03/05/2018 12:49 PM CDT): Patient having shortness of breath with walking and talking. Has stopped Ellipta inhaler, but still has albuterol inhaler prn. Advised to follow up with needle punch operator. Urticaria, unspecified 08/21/2016 Erectile dysfunction due to [...] Encounters Date Type Department Care Team Description 08/26/2024 4:30 PM CDT Office Visit [facility] Movement Disorders [address] [facility] 7th [place] [address] Benito David III, MD PhD 08/15/2024 9:45 AM CDT Office Visit [facility] Hand [facility] [address] [place] [phone] Georges Wallis MD Pain of finger of left hand (Primary Dx) 08/11/2024 Results Follow-Up [facility] Cardiology [address] [place] [phone] Jevon Mohr MD Bilateral lower extremity edema 08/01/2024 Telephone [facility] Cardiology [address] [place] [address] Jevon Mohr MD 07/18/2024 9:15 AM CDT Office Visit [facility] Hand Surgery [facility] [address] [place] [phone] Georges Wallis MD Pain of finger of left hand (Primary Dx) 07/15/2024 Orders Only [facility] Hand Surgery [address] [place] [address] [place] [phone] Georges Wallis MD 07/04/2024 10:45 AM PHYSICIAN RELATIONS MANAGER Office Visit [facility] Hand Surgery [address] [place] [address] [place] [phone] Harriet Jacobs, BELT TENDER Pain of finger of left hand (Primary Dx); Acute osteomyelitis of phalanx of hand, left (HCC) 06/30/2024 1:00 PM PHYSICIAN RELATIONS MANAGER Office Visit [facility] Cardiology [address] [facility] [address] [place] [phone] Jevon Mohr MD Coronary artery disease involving pechanga coronary artery of pechanga heart without angina pectoris (Primary Dx); Essential hypertension; Hyperlipidemia LDL goal <70; MADDIE (obstructive sleep apnea) 06/27/2024 8:30 AM PHYSICIAN RELATIONS MANAGER Office Visit [facility] Hand Surgery [address] [place] [address] [place] [phone] Harriet Jacobs, BELT TENDER Pain of finger of left hand (Primary Dx) 06/21/2024 10:01 AM PHYSICIAN RELATIONS MANAGER Anesthesia Event [facility] OR [address] [place] [address] Kenneth Valenzuela MD Lee, Walter, MD 06/21/2024 10:00 AM PHYSICIAN RELATIONS MANAGER - 06/21/2024 10:30 AM PHYSICIAN RELATIONS MANAGER Surgery [facility] OR [address] [place] [address] Georges Wallis MD 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 06/21/2024 7:52 AM PHYSICIAN RELATIONS MANAGER - 06/21/2024 12:10 PM PHYSICIAN RELATIONS MANAGER Hospital Encounter [facility] OR [address] [place] [address] Georges Wallis MD Acute osteomyelitis of phalanx of hand, left (HCC) [M86.142] (Primary Dx); Acute osteomyelitis of phalanx of hand, left (HCC) Discharge Disposition: Discharge to home or self care 06/17/2024 Telephone [facility] Orthopedics and Sports Medicine [address] [place] [address] [address] [place] [address] Georges Wallis MD 06/13/2024 9:15 AM PHYSICIAN RELATIONS MANAGER Office Visit [facility] Hand Surgery [address] [place] [address] [address] [place] [phone] Georges Wallis MD Pain of finger of left hand (Primary Dx); Other chronic osteomyelitis of left hand (HCC) 06/13/2024 Telephone [facility] Orthopedics and Sports Medicine [address] [place] [address] [address] [place] [address] Georges Wallis MD cardiac clearance 06/08/2024 Telephone [facility] Pulmonology [address] [place] [address] [address] [place] [address] Isabella Randall MA 06/08/2024 Documentation [facility] Pulmonology [address] [place] [address] [address] [place] [address] Isabella Randall MA from Last 3 Months Immunizations Immunization Administration Dates Next Due Influenza, Quadrivalent, Hig [...] 05/11/2003 - 05/10/2004 CHOLECYSTECTOMY 05/11/2003 - 05/10/2004 Jono surgery EPIDURAL INJECTION LUMBOSACRAL 08/07/2015 N/A MULTIPLE TOOTH EXTRACTIONS 05/11/1957 - 05/10/1958 KNEE SURGERY 05/11/1964 - 05/10/1965 Right CORONARY ARTERY BYPASS GRAFT 05/11/2015 - 05/10/2016 Quadruple CATARACT EXTRACTION, BILATERAL 05/11/2018 - 05/10/2019 BACK SURGERY 05/11/2019 - 05/10/2020 compression fx UVULOPALATOPHARYNGOPLASTY 05/11/1983 - 05/10/1984 FINGER AMPUTATION 06/21/2024 Left long finger Medical History Medical History Date Comments GERD (gastroesophageal reflux disease) Dysphagia 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/2014 MADDIE (obstructive sleep apnea) 09/06/2013 Sl eep apnea with CPAP Essential hypertension 12/19/2016 Chronic obstructive pulmonary disease (HCC) 05/12 Parkinson disease ([facility]) 09/26/2020 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 Never 06/21/2024 Q2: How many drinks containi ng alcohol do you have on a typical day when you are drinking? Patient does not drink Q3: How often do you have si x or more drinks on one occasion? Never 06/21/2024 Personal Safety Answer Date Recorded Have you ever been in or are you currently in a harmful physical or emotional relationship or is someone making you feel afraid or unsafe? Denies 06/21/2024 Sex and Gender Information Value Date Recorded Sex Assigned at Not on file Legal Sex Male 7:30 PM PHYSICIAN RELATIONS MANAGER Gender Identity Not on file Sexual Orientation Not on file Obstetrics History Last Filed Vital Signs Vital Sign Reading Time Taken Comments Blood Pressure 131/69 08/26/2024 3:57 PM CDT Pulse 63 08/26/2024 3:57 PM CDT Temperature 36.1 C (97 F) 06/21/2024 11:15 AM PHYSICIAN RELATIONS MANAGER Respiratory Rate 18 06/21/2024 11:50 AM PHYSICIAN RELATIONS MANAGER Oxygen Saturation 95% 06/30/2024 1:07 PM PHYSICIAN RELATIONS MANAGER Inhaled Oxygen Concentration - - Weight 83.5 kg (184 lb) 08/26/2024 3:57 PM CDT Height 160 cm (5' 3 ) 08/26/2024 3:57 PM CDT Body Mass Index 32.59 08/26/2024 3:57 PM CDT Plan of Treatment Health Maintenance Due Date Last Done Comments DTaP/Tdap/Td Vaccine (1 - Tdap) 1951 Hepatitis B Screening 02/07/1958 Zoster Vaccine (1 of 2) 1957 Well Visit 65+ 2003 Covid-19 Vaccine (4 - 2023-2 5 season) 2024 12/29/2020, 07/30/2020, 06/28/2020 Influenza Vaccine (Season Ended) 2025 01/30/2021, 01/21/2020, 01/21/2020, Additional history exists Depression Screening 02/25/2025 02/26/2024 Fall Risk Assessment 06/21/2025 06/21/2024 Pneumococcal vaccine 65+ Completed 018, 02/23/2018, 02/18/2017, Additional history exists Procedures Procedure Name Priority Date/Time Associated Diagnosis Comments BASIC METABOLIC PANEL Routine 08/10/2024 11:03 AM CDT Bilateral lower extremity edema SURGICAL PATHOLOGY Routine 06/21/2024 10:20 AM PHYSICIAN RELATIONS MANAGER Acute osteomyelitis of phalanx of hand, left (HCC) RI AN PROCEDURE PLACEHOLDER Routine 06/21/2024 10:19 AM PHYSICIAN RELATIONS MANAGER RI AN ELECTIVE SUPRAGLOTTIC AIRWAY Routine 06/21/2024 10:19 AM PHYSICIAN RELATIONS MANAGER AMPUTATION FINGER 06/21/2024 10:06 AM PHYSICIAN RELATIONS MANAGER Acute osteomyelitis of phalanx of hand, left (HCC) Case Notes LT LONG FINGER AMPUTATION THROUGH THE PIP JT Special Needs PULSAVAC from Last 3 Months Results * (ABNORMAL) Basic metabolic panel (08/10/2024 11:03 AM CDT) Glucose 94 65 - 139 mg/dL [facility] Comment: Non-fasting reference interval BUN 29(H) 7 - 25 mg/dL [facility] Creatinine 0.96 0.70 - 1.22 mg/dL [facility] eGFR 77 > OR = 60 mL/min/1.7 3m2 [facility] BUN/creat ratio 30(H) 6 - 22 (calc) [facility] Sodium 140 135 - 146 mmol/L [facility] Potassium, pl 4.5 3.5 - 5.3 mmol/L [facility] Chloride 104 98 - 110 mmol/L [facility] CO2 26 20 - 32 mmol/L [facility] Calcium 9.0 8.6 - 10.3 mg/dL [facility] Blood 08/10/2024 11:0 3 AM CDT 08/10/2024 11:03 AM CDT Narrative [facility] - 08/11/2024 7:36 AM CDT FASTING:NO FASTING: NO us Jevon Mohr MD LAB BLOOD ORDERABLES Baylee l Result [facility] [address] [place] [address] * Surgical pathology (06/21/2024 10:20 AM PHYSICIAN RELATIONS MANAGER) Tissue specimen (specimen) (Amputation non-tramatic) 06/21/2024 10:20 AM PHYSICIAN RELATIONS MANAGER Narrative PATHOLOGY [facility] - 06/22/2024 1:41 PM PHYSICIAN RELATIONS MANAGER [facility] Department of Pathology [address] [place] [address] Note to Patients: This report may contain a detailed description of human tissue sent by a health care provider to the laboratory for pathologic evaluation. The content of this report is essential for diagnosis and may provide important critical findings. This information may be unfamiliar to patients to review without a medical professional present. It is advised that the patient review this report in the presence of a health care provider who can answer questions and explain the details. Final Report Patient Name: CRUZ BEARDEN : 1940 (Age: 84) Gender: M Address: [address] [place] [address] Hospital #: [id number] Service: Surgery Location: Patient Type: [facility] OUTPATIENT Taken: 06/21/2024 Received: 06/21/2024 Accessioned: 06/21/2024 Reported: 06/22/2024 Physician(s): MD Neyda Olvera NP Diagnosis: Partial left long finger, amputation: - Discoloration (gross diagnosis). Ochoa Barreto M.D. Report Electronically Reviewed and Signed Out By Ochoa Barreto M.D. 06/22/2024 13:41:58 Specimen(s) Received: A: Left long finger Microscopic Description: Unless gross-only is specified, the final diagnosis for each specimen is based on a microscopic examination of each tissue sample. Clinical History: The patient is an 84-year-old man with acute osteomyelitis of a finger of the left hand. Operative procedure: Left long finger amputation through the proximal interphalangeal joint. Gross Description Received in formalin, labeled with the patient s identifiers and left long finger and consists of a 5.2 x 2.3 x 2.0 cm partial finger that is disarticulated at the proximal interphalangeal joint, and displays tijerina-white, smooth cartilage at the margin. The skin of the finger is tijerina-white and wrinkled with an attached, intact nail. No ulcerations are grossly identified. Sectioning reveals tijerina-yellow, focally softened trabecular bone of the distal phalanx. Digital photographs are taken and the specimen is for gross examination only. AMARILIS White, PA ([facility]) Microscopic slide review and interpretation for this case was performed at [facility], Department of Surgical Pathology, [address] [facility] [place], [place] [id number], [place] [address] [facility] # [id number] us Georges Wallsi MD LAB PATHOLOGY ORDERABLES Final Result PATHOLOGY [facility] * RI AN ELECTIVE SUPRAGLOTTIC AIRWAY, RI AN PROCEDURE PLACEHOLDER (06/21/2024 10:19 AM PHYSICIAN RELATIONS MANAGER) Narrative Deanna Lr CRNA - 06/21/2024 10:19 AM PHYSICIAN RELATIONS MANAGER Deanna Lr CRNA 06/21/2024 10:20 AM Airway Patient location: OR Urgency: elective Indications for airway management: anesthesia Difficult airway: no Staff: Supervising provider: Kenneth Valenzuela MD Placed by: OPHTHALMIC TECHNICIAN APPRENTICE: Deanna Lr CRNA Emergent airway documentation: Risks and benefits discussed: yes Consent obtained: yes Consent given by: patient Airway prep: Preoxygenated: yes Mask difficulty assessment: 0 - not attempted Spontaneous ventilation during airway: absent Sedation level during airway: deep Final airway details: Final airway type: supraglottic airway Final supraglottic airway: classic SGA size: 3 Cuff pressure: 2 cm H2O Number of attempts: 1no us Kenneth Valenzuela MD ANESTHESIA ORDERABLES Final R esult from Last 3 Months Insurance MEDICARE [facility] MEDICARE [facility] [address] [id number] MEDICARE [facility] MEDICARE SUPPLEMENT [address] [id number] [address] [facility] MEDICARE SUPPLEMENT Advance Directives For more information, please contact: [phone] Documents on File Type Date Recorded Patient Invasive Cardiovascular Technologist Expl anation Power of Gravel Inspector 06/13/2024 9:34 AM * Full Code (Latest Code Status on File) Date Activated Date Inactivated Comments 12/24/2021 8:42 AM 12/24/2021 4:15 PM Care Teams Power Brake Operator Relationship Specialty Start Date End Date Neyda Ba NP [address] [place] [address] PCP - General Nurse Practitioner 06/15/24 Ochoa Crow III, MD [address] [place] [address] Consulting Physician Rheumatology 04/09/17 Theresa Plasencia DPT [address] [place] [address] Physical Therapist Physical Therapy 11/23/20 Jenni Ochoa MD [address] [place] [address] Consulting Physician Rheumatology 11/26/21 Benito David III, MD PhD [address] [place] [address] Neurologist Neurology 11/26/21 Ez Ansari MD [address] [place], [place] [id number] Consulting Physician Ophthalmology 11/26/21 Jevon Mohr MD [address] [address] Furnace Roaster Cardiology 11/26/21 Nehal Price MD [address] [facility] [address] [place] [address] Consulting Physician Pulmonary Disease 06/15/24
--- OUTSIDE RECORDS SUMMARY | 2024-09-01 11:46 | XMS_ITS | Encounter Summary ---
Author Organization [facility] Address [address] [place] [address] Phone Care Team Providers Care Bone Glue Maker Name Role Phone Jaime Buck MD Primary Care Provider [phone] Carlo Martinez DO Unavailable [phone] Reason for Visit * Reason Comments Medication Refill Encounter Details Date Type Department Care Team (Late st Contact Info) Description 05/19/2021 Refill [facility] - Gastroenterology - [place] [address] [place] [address] Tashia Aguilar Pretty, PAC [address] [place] [address] Medication Refill Social History Tobacco Use Types [...] Deanna Lake RN - 05/21/2021 4:28 PM GRAINING OPERATOR Medication refilled and signed per [facility] chronic medication standing order for pediatric and adult patients. NING OPERATOR * Telephone Encounter - Deanna Lake RN - 05/21/2021 4:21 PM GRAINING OPERATOR Pharmacy requesting refill of: Requested Prescriptions Pending Prescriptions Disp Refills ??? famotidine (PEPCID) 20 MG Tablet [Pharmacy Med Name: FAMOTIDINE 20MG TABLETS] 180 Tablet 3 Sig: TAKE 1 TABLET BY MOUTH TWICE DAILY Last fill: 05/28/2020 Patients last OV with GI: telemedicine office visit on 05/28/2020 Next Office Visit with GI: None scheduled. Called patient, offered an appt. Patient scheduled 06/03/2021. NING OPERATOR documented in this encounter Plan of Treatment Not on file documented as of this encounter Visit Diagnoses Diagnosis Gastroesophageal reflux disease with esophagitis without hemorrhage documented in this encounter Care Teams Bone Glue Maker Relationship Specialty Start Date End Date Jaime Buck MD [address] [place] [address] PCP - General Family Medicine 03/29/15 Carlo Martinez DO [address] [place] [address] Gastroenterology 03/29/15 documented as of this encounter
--- OUTSIDE RECORDS SUMMARY | 2024-09-01 11:46 | XMS_ITS | Encounter Summary ---
Author Organization [facility] Address [address] [place] [address] Phone Care Team Providers Care Black And White Printer Operator Name Role Phone Jaime Buck MD Primary Care Provider [phone] Carlo Martinez DO Unavailable [phone] Reason for Visit * Reason Comments Medication Refill Encounter Details Date Type Department Care Team (Late st Contact Info) Description 07/02/2020 Refill [facility] - Neurology - [place] [address] [place] [address] Hitesh Enciso MD [address] [place] [phone] Medication Refill Social History Tobacco Use Types [...] on filedocumented in this encounter Care Teams Black And White Printer Operator Relationship Specialty Start Date End Date Jaime Buck MD [address] [place] [address] PCP - General Family Medicine 03/29/15 Carlo Martinez DO [address] [place] [address] Gastroenterology 03/29/15 documented as of this encounter
--- OUTSIDE RECORDS SUMMARY | 2024-09-01 11:46 | XMS_ITS | Encounter Summary ---
Author Organization [facility] Address [address] [place] [address] Phone Care Team Providers Care Microelectronics Assembler Name Role Phone Jaime Buck MD Primary Care Provider [phone] Carlo Martinez DO Unavailable [phone] Reason for Visit * Reason Comments Medication Refill Encounter Details Date Type Department Care Team (Late st Contact Info) Description 09/29/2020 Refill [facility] - Neurology - [place] #1 [place] [address] Hitesh Enciso MD [address]2 [place] [address] Medication Refill Social History Tobacco Use Types [...] on filedocumented in this encounter Care Teams Microelectronics Assembler Relationship Specialty Start Date End Date Jaime Buck MD [address] [place] [address] PCP - General Family Medicine 03/29/15 Carlo Martinez DO [address] [place] [address] Gastroenterology 03/29/15 documented as of this encounter
--- OUTSIDE RECORDS SUMMARY | 2024-09-01 11:46 | XMS_ITS | Referral Summary ---
Author Organization [facility] [address] [facility] [address] Address [address] [place] [address] Care Team Providers Care Journeyman Pipe Fitter Name Role Phone Tristin HSU MD, Ochoa Maddox Unavailable [phone] Theresa Plasencia DPT Unavailable [phone] Jenni Ochoa MD Unavailable [phone] Joann HSU MD PhD, Benito Palafox Unavailable Ez Ansari MD Unavailable [phone] Jevon Mohr MD Unavailable Neyda Ba NP Primary Care Provider Nehal Price MD Unavailable [phone] Encounters Date Type Department Care Team Description 08/26/2024 4:30 PM CDT Office Visit [facility] Movement Disorders [address] [facility] 7th [place] [address] Benito David III, MD PhD 08/15/2024 9:45 AM CDT Office Visit [facility] Hand Surgery [address] [facility] [address] [place] [address] Georges Wallis MD Pain of finger of left hand (Primary Dx) 08/11/2024 Results Follow-Up [facility] Cardiology [address] [place] [address] Jevon Mohr MD Bilateral lower extremity edema 08/01/2024 Telephone [facility] Cardiology [address] [place] [phone] Jevon Mohr MD 07/18/2024 9:15 AM CDT Office Visit [facility] Hand Surgery [address] [place] [address] [place] [address] Georges Wallis MD Pain of finger of left hand (Primary Dx) 07/15/2024 Orders Only [facility] Hand Surgery [address] [place] [address] [place] [address] Georges Wallis MD 07/04/2024 10:45 AM LADLE PATCHER Office Visit [facility] Hand Surgery [address] [place] [address] [place] [address] Harriet Jacobs, STARCH DUMPER Pain of finger of left hand (Primary Dx); Acute osteomyelitis of phalanx of hand, left (HCC) 06/30/2024 1:00 PM LADLE PATCHER Office Visit [facility] Cardiology [address] [place] [address] Jevon Mohr MD Coronary artery disease involving te-moak coronary artery of te-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 (Primary Dx); Essential hypertension; Hyperlipidemia LDL goal <70; MADDIE (obstructive sleep apnea) 06/27/2024 8:30 AM LADLE PATCHER Office Visit [facility] Hand Surgery [address] [place] [address] [place] [address] Harriet Jacobs, STARCH DUMPER Pain of finger of left hand (Primary Dx) 06/21/2024 10:00 AM LADLE PATCHER - 06/21/2024 10:30 AM LADLE PATCHER Surgery [facility] [place] [address] [place] [address] Georges Wallis MD 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 06/21/2024 10:01 AM LADLE PATCHER Anesthesia Event [facility] OR [address] [place] [address] Kenneth Valenzuela MD Lee, Walter, MD 06/21/2024 7:52 AM LADLE PATCHER - 06/21/2024 12:10 PM LADLE PATCHER Hospital Encounter [facility] OR [address] [place] [address] Georges Wallis MD Acute osteomyelitis of phalanx of hand, left (HCC) [M86.142] (Primary Dx); Acute osteomyelitis of phalanx of hand, left (HCC) Discharge Disposition: Discharge to home or self care 06/17/2024 Telephone [facility] Orthopedics and Sports Medicine [address] [place] [address] Georges Wallis MD 06/13/2024 Telephone [facility] Orthopedics and Sports Medicine [address] [place] [address] [address] [place] [address] Georges Wallis MD cardiac clearance 06/13/2024 9:15 AM LADLE PATCHER Office Visit [facility] Hand Surgery [address] [place] [address] [address] [place] [address] Georges Wallis MD Pain of finger of left hand (Primary Dx); Other chronic osteomyelitis of left hand (HCC) 06/08/2024 Telephone [facility] Pulmonology [address] [place] [address] [address] [place] [address] Isabella Randall MA 06/08/2024 Documentation [facility] Pulmonology [address] [place] [address] [address] [place] [address] Isabella Randall MA from Last 3 Months Allergies Active Allergy [...] 1 tablet (75 mcg total) by mouth clinical services director before breakfast 3 9 Active hydrOXYchloroQ UINE [...] (12/24/2021): Added automatically from request for surgery [id number] Abnormal CT scan, gastrointestinal tract 022 Overview (12/18/2021): Added automatically from request for surgery [id number] Diplopia 08/28/2021 Bilateral lower extremity edema 10/26/2020 [...] he has had a swallow study with PACKAGE CAR DRIVER in 2020. We discussed another swallow evaluation, but they prefer to hold off. Diplopia has extensively evaluated by Neuro-Ophtalmology (Dr. Montero), and is suspected to be PD-related. I recommend the following: Continue carbidopa/levodopa. Okay to take extra tab before [employer] games. Cut back ropinirole from 6 tabs [...] wonder if this is related to adverse FRONT END SPECIALIST effects of these medications. He can try [...] he has had a swallow study with PACKAGE CAR DRIVER in 2020. We discussed another swallow evaluation, [...] with applesauce, pudding or yogurt; or dissolving jjl-ksii-wtfhjh pills in OJ or grape juice. No [...] sleepiness. Assessment & Plan (04/28/2022 3:53 PM LADLE PATCHER): PD remains well controlled on his current [...] twice a day 5. Follow-up with your Neuro-Art Manager 6. Referral to Physical Therapy Assessment & [...] + 1:40 on 02/24 RF, CCP neg 10 On leflunomide 20 mg q.d.., begin hcq Routine labs today. Assessment & Plan (12/28/2017 4:43 PM CDT): Cxr neg 02/24 Gaye + 1:40 on 02/24 RF, CCP neg 10 On leflunomide 20 mg q.d.. Routine labs today. Assessment & Plan (10/28/2017 11:51 AM CDT): Cxr neg 02/24 Gaye + 1:40 on 02/24 RF, CCP neg 02/24 Rheumatoid arthritis [facility] without rheumatoid factor 02/27/2017 Overview (02/17/2018): Cxr neg 02/24 Gaye + 1:40 on 02/24 RF, CCP neg 10 On arava 20 mg QD. If doing [...] related to a rheumatological cause. Has seen fire extinguisher repairer and mail sorting supervisor for this issue. Assessment & Plan (12/31/2017 [...] in sister. Coronary artery disease invo lving te-moak coronary artery of te-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 12/19/2016 Essential hypertension 12/19/2016 MOSHER (dyspnea on exertion) 12/19/2016 Assessment & Plan (03/05/2018 12:49 PM CDT): Patient having shortness of breath with walking and talking. Has stopped Ellipta inhaler, but still has albuterol inhaler prn. Advised to follow up with chapter relations administrator. Urticaria, unspecified 08/21/2016 Erectile dysfunction due to [...] Chronic coronary artery disease 01/25/2014 02/24/2019 Immunizations Immunization Administration Dates Next Due Influenza, [...] on file Legal Sex Male 7:30 PM LADLE PATCHER Gender Identity Not on file Sexual Orientation Not on file Last Filed Vital Signs Vital Sign Reading Time Taken Comments Blood Pressure 131/69 08/26/2024 3:57 PM CDT Pulse 63 08/26/2024 3:57 PM CDT Temperature 36.1 C (97 F) 06/21/2024 11:15 AM LADLE PATCHER Respiratory Rate 18 06/21/2024 11:50 AM LADLE PATCHER Oxygen Saturation 95% 06/30/2024 1:07 PM LADLE PATCHER Inhaled Oxygen Concentration - - Weight 83.5 kg (184 lb) 08/26/2024 3:57 PM CDT Height 160 cm (5' 3 ) 08/26/2024 3:57 PM CDT Body Mass Index 32.59 08/26/2024 3:57 PM CDT Plan of Treatment Not on file Procedures Procedure Name Priority Date/Time Associated Diagnosis Comments BASIC METABOLIC PANEL Routine 08/10/2024 11:03 AM CDT Bilateral lower extremity edema SURGICAL PATHOLOGY Routine 06/21/2024 10:20 AM LADLE PATCHER Acute osteomyelitis of phalanx of hand, left (HCC) IA AN PROCEDURE PLACEHOLDER Routine 06/21/2024 10:19 AM LADLE PATCHER IA AN ELECTIVE SUPRAGLOTTIC AIRWAY Routine 06/21/2024 10:19 AM LADLE PATCHER AMPUTATION FINGER 06/21/2024 10:06 AM LADLE PATCHER Acute osteomyelitis of phalanx of hand, left [...] 08/11/2024 7:36 AM CDT FASTING:NO FASTING: NO Jevon Mohr MD LAB BLOOD ORDERABLES Baylee l Result [facility] [address] [place] [address] * Surgical pathology (06/21/2024 10:20 AM LADLE PATCHER) Tissue specimen (specimen) (Amputation non-tramatic) 06/21/2024 10:20 AM LADLE PATCHER Narrative PATHOLOGY [facility] - 06/22/2024 1:41 PM LADLE PATCHER [facility] Department of Pathology [address] [place] [address] Note to Patients: This report may contain [...] 1940 (Age: 84) Gender: M Address: [address] [id number] Hospital #: [id number] Service: Surgery Location: Patient Type: [facility] OUT[facility] Taken: 06/21/2024 Received: 06/21/2024 Accessioned: 06/21/2024 [...] for gross examination only. AMARILIS White, PA (ASCP) Microscopic slide review and interpretation for this case was performed at [facility], Department of Surgical Pathology, [address] [facility] [place], [place] [id number], [place] [id number] [place] # [id number] us Georges Wallis MD LAB PATHOLOGY ORDERABLES Final Result PATHOLOGY [facility] * IA AN ELECTIVE SUPRAGLOTTIC AIRWAY, IA AN PROCEDURE PLACEHOLDER (06/21/2024 10:19 AM LADLE PATCHER) Narrative Deanna Lr CRNA - 06/21/2024 10:19 AM LADLE PATCHER Deanna Lr CRNA 06/21/2024 10:20 AM Airway Patient location: OR Urgency: elective Indications for airway management: anesthesia Difficult airway: no Staff: Supervising provider: Kenneth Valenzuela MD Placed by: COMPLIANCE INVESTIGATOR: Deanna Lr CRNA Emergent airway documentation: Risks [...] esult from Last 3 Months Insurance MEDICARE [facility] MEDICARE [facility] MEDICARE [facility] MEDICARE SUPPLEMENT MEDICARE [facility] MEDICARE SUPPLEMENT Advance Directives For more information, please contact: [phone] Documents on File Type Date Recorded Patient Log Sawyer Expl anation Power of Bus Dispatcher [employer] 06/13/2024 9:34 AM * Full Code (Latest Code Status on File) Date Activated Date Inactivated Comments 12/24/2021 8:42 AM 12/24/2021 4:15 PM Care Teams Journeyman Pipe Fitter Relationship Specialty Start Date End Date Neyda Ba STARCH DUMPER [address] [place] [address] PCP - General Nurse Practitioner 06/15/24 Ohcoa Crow III, MD [address] [place] [address] Consulting Physician Rheumatology 04/09/17 Theresa Plasencia DPT [address] [place] [address] Physical Therapist Physical Therapy 11/23/20 Jenni Ochoa MD [address] [place] [address] Consulting Physician Rheumatology 11/26/21 Benito David III, MD PhD [address] [place] [address] Neurologist Neurology 11/26/21 Ez Ansari MD [address] [place], [place] [address] Consulting Physician Ophthalmology 11/26/21 Jevon Mohr MD [address] [facility] [address] [place] [address] Jewel Bearing Grinder Cardiology 11/26/21 Nehal Price MD [address] [place] [address] Consulting Physician Pulmonary Disease 06/15/24
--- OUTSIDE RECORDS SUMMARY | 2024-09-01 11:46 | XMS_ITS | Encounter Summary ---
Author Organization [facility] Healthcare Address [address] [place] [address] Care Team Providers Care Surface Grinder Tender Name Role Phone Jaime Buck MD Primary Care Provider [phone] Tristin HSU MD, Ochoa Maddox Unavailable [phone] Janet Meier MD Unavailable [phone] Peewee Dalton MUSHROOM CULTIVATOR Primary Care Provider [phone] Jessica Melendez ALL PURPOSE CLERK Unavailable [phone] Theresa Plasencia DPT Unavailable [phone] Dawna Lara ALL PURPOSE CLERK Unavailable [phone] Jenni Ochoa MD Unavailable [phone] Joann HSU MD PhD, Benito Palafox Unavailable Ez Ansari MD Unavailable [phone] Jevon Mohr MD Unavailable [phone] Vipul Palomo MD Primary Care Provider [phone] Neyda Ba MUSHROOM CULTIVATOR Primary Care Provider [phone] Nehal Price MD Unavailable [phone] Encounter Details Date Type Department Care Team (Late st Contact Info) Description 08/25/2018 Telephone [facility] Radiology [address] [place] [address] Kustra, Ella Zina, RN Social History Tobacco Use Types Packs/Day Years Used Date Smoking Tobacco: Former Cigars Q uit: 06/21/2015 Smokeless Tobacco: Never Comments:Smoking History Pac ks/day: 1 Cigars Alcohol Use Standard Drinks/Week Comments No 0 (1 standard drink = 0.6 oz pur e alcohol) Sex and Gender Information Value Date Recorded Sex Assigned at Not on file Legal Sex Male 7:30 PM AUTOCLAVE OPERATOR Gender Identity Not on file Sexual Orientation Not on file documented as of this encounter Plan of Treatment Not on file documented as of this encounter Visit Diagnoses Not on filedocumented in this encounter Care Teams Surface Grinder Tender Relationship Specialty Start Date End Date Jaime Buck MD [address] [place] [address] PCP - General 08/08/16 05/21/20 Peewee Dalton NP [address] [facility] 1 [facility] 1 [place] [address] PCP - General Nurse Practitioner 05/22/20 07/20/23 Vipul Palomo MD [facility] [address] [place] [address] PCP - General Family Practice 07/21/23 06/14/24 Neyda Ba NP [address] [facility] 1 [facility] 1 [place] [address] PCP - General Nurse Practitioner 06/15/24 Ochoa Crow III, MD [address] [facility] [address] [place] [address] Consulting Physician Rheumatology 04/09/17 Janet Meier MD [address] [place] [address] Referring Physician Pulmonary Disease 05/12/18 06/14/24 Jessica Melendez, ALL PURPOSE CLERK [address] [facility] [address] [place] [address] Speech Language Pathologist Speech Therapy 10/25/20 12/17/20 Theresa Plasencia, DPT [address] [facility] [address] [place] [address] Physical Therapist Physical Therapy 11/23/20 Dawna Lara, ALL PURPOSE CLERK [address] [facility] [address] [place] [address] Speech Language Pathologist Speech Therapy 12/18/20 02/18/21 Jenni Ochoa MD [address] [facility] 1 [place] [address] Consulting Physician Rheumatology 11/26/21 Benito David III, MD PhD [address] [facility] [address] [place] [address] Neurologist Neurology 11/26/21 Ez Ansari MD [address] [place] [address] Consulting Physician Ophthalmology 11/26/21 Jevon Mohr MD [address] [facility] [address] [place] [address] Weed Eradicator Cardiology 11/26/21 Nehal Price MD [address] [place] [address] Consulting Physician Pulmonary Disease 06/15/24 documented as of this encounter
--- OUTSIDE RECORDS SUMMARY | 2024-09-01 11:46 | XMS_ITS | Encounter Summary ---
Author Organization [facility] Address [address] [place] [address] Phone Care Team Providers Care Tanning Wheel Filler Name Role Phone Jaime Buck MD Primary Care Provider [phone] Carlo Martinez DO Unavailable [phone] Reason for Visit * Reason Comments Medication Refill Encounter Details Date Type Department Care Team (Late st Contact Info) Description 11/03/2020 Refill [facility] - Neurology - [place] [address]1 [place] [address] Hitesh Enciso MD [address] [place] [address] Medication Refill Social History Tobacco Use Types [...] on filedocumented in this encounter Care Teams Tanning Wheel Filler Relationship Specialty Start Date End Date Jaime Buck MD [address] [place] [address] PCP - General Family Medicine 03/29/15 Carlo Martinez DO [address] [place] [address] Gastroenterology 03/29/15 documented as of this encounter
--- OUTSIDE RECORDS SUMMARY | 2024-09-01 11:46 | XMS_ITS | Encounter Summary ---
Author Organization [facility] Address [address] [place] [address] Phone Care Team Providers Care Material Crew Supervisor Name Role Phone Jaime Buck MD Primary Care Provider [phone] Carlo Martinez DO Unavailable [phone] Reason for Visit * Reason Comments Medication Refill Encounter Details Date Type Department Care Team (Late st Contact Info) Description 08/14/2020 Refill [facility] - Neurology - [place] [address]1 [place] [address] Hitesh Enciso MD [address] [place] [address] Medication Refill Social History Tobacco Use Types [...] on filedocumented in this encounter Care Teams Material Crew Supervisor Relationship Specialty Start Date End Date Jaime Buck MD [address] [place] [address] PCP - General Family Medicine 03/29/15 Carlo Martinez DO [address] [place] [address] Gastroenterology 03/29/15 documented as of this encounter
--- OUTSIDE RECORDS SUMMARY | 2024-09-01 11:46 | XMS_ITS | Encounter Summary ---
Author Organization [facility] Healthcare Address [address] [place] [address] Care Team Providers Care Cartridge Assembling Machine Adjuster Name Role Phone Jaiem Buck MD Primary Care Provider [phone] Tristin HSU MD, Ochoa Maddox Unavailable [phone] Janet Meier MD Unavailable [phone] Peewee Dalton CEPHALOMETRIC TRACER Primary Care Provider [phone] Jessica Melendez ENTRY DRIVER OPERATOR Unavailable [phone] Theresa Plasencia DPT Unavailable [phone] Dawna Lara ENTRY DRIVER OPERATOR Unavailable [phone] Jenni Ochoa MD Unavailable [phone] Joann HSU MD PhD, Benito Palafox Unavailable Ez Ansari MD Unavailable [phone] Jevon Mohr MD Unavailable [phone] Vipul Palomo MD Primary Care Provider [phone] Neyda Ba CEPHALOMETRIC TRACER Primary Care Provider [phone] Nehal Price MD Unavailable [phone] Encounter Details Date Type Department Care Team (Late st Contact Info) Description 09/15/2018 Telephone [facility] Radiology 1 [place] [address] Kustra, Ella Zina, RN Social [...] on file Legal Sex Male 7:30 PM REGISTERED NURSE TEACHER Gender Identity Not on file Sexual Orientation Not on file documented as of this encounter Plan of Treatment Not on file documented as of this encounter Visit Diagnoses Not on filedocumented in this encounter Care Teams Cartridge Assembling Machine Adjuster Relationship Specialty Start Date End Date Jaime Buck MD [address] [place] [address] PCP - General 08/08/16 05/21/20 Peewee Dalton NP [address] [facility] 1 [facility] 1 [place] [address] PCP - General Nurse Practitioner 05/22/20 07/20/23 Vipul Palomo MD [facility]5 [facility] [address] [place] [address] PCP - General Family Practice 07/21/23 06/14/24 Neyda Ba NP [address] [facility] 1 [facility] 1 [place] [address] PCP - General Nurse Practitioner 06/15/24 Ochoa Crow III, MD [address] [facility] [address] [place] [address] Consulting Physician Rheumatology 04/09/17 Janet Meier MD [address] [place] [address] Referring Physician Pulmonary Disease 05/12/18 06/14/24 Jessica Melendez, ENTRY DRIVER OPERATOR [address] [facility] [address] [place] [address] Speech Language Pathologist Speech Therapy 10/25/20 12/17/20 Theresa Plasencia, DPT [address] [facility] [address] [place] [address] Physical Therapist Physical Therapy 11/23/20 Dawna Lara, ENTRY DRIVER OPERATOR [address] [facility] [address] [place] [address] Speech Language Pathologist Speech Therapy 12/18/20 02/18/21 Jenni Ochoa MD [address] [facility] 1 [place] [address] Consulting Physician Rheumatology 11/26/21 Benito David III, MD PhD [address] [facility] [address] [place] [address] Neurologist Neurology 11/26/21 Ez Ansari MD [address] [place] [address] Consulting Physician Ophthalmology 11/26/21 Jevon Mohr MD [address] [facility] [address] [place] [address] Plate Fitter Cardiology 11/26/21 Nehal Price MD [address] [place] [address] Consulting Physician Pulmonary Disease 06/15/24 documented as of this encounter
[2024-09-01 12:11] LABS: Add Urine Microscopic? NO; Appearance Urine Clear (Clear); Basophils Percent Auto 0.5 % (0.2-1.2); Bilirubin Urine Negative (Negative); Blood Urine Negative (Negative); Color Urine Yellow (Yellow); Eosinophils Absolute Auto 0.2 K/mm3 (0-0.3); Eosinophils Percent Auto 3.7 % (0-4.4); Glucose Urine UA Negative (Negative); Hemoglobin 12.5 g/dL (14.0-18.0); Immature Granulocyte Absolute 0.01 K/mm3 (0.00-0.031); Immature Granulocyte Percent A 0.2 % (0-0.5); Ketones Urine Negative (Negative); Leukocyte Esterase Ur Negative LEU/UL (Negative); Lymphocytes Percent Auto 16.4 % (18.3-44.2); Mean Corpuscular HGB Conc 32.9 g/dl (32-36); Mean Corpuscular Hemoglobin 32.7 pg (26-34); Mean Corpuscular Volume 99.5 fl (80-100); Mean Platelet Volume 10.5 fl (7.4-10.4); Monocytes Absolute Auto 0.4 K/mm3 (0.1-0.6); Neutrophils Percent Auto 69.2 % (45.5-73.1); Nitrate Urine Negative (Negative); Platelet Count Result 172 k/mm3 (150-375); Protein Urine Negative (Negative); Red Blood Count 3.82 M/mm3 (4.6-6.20); Red Cell Distribution Width 12.9 % (11.5-14.5); Specific Grav Ur 1.008 (1.001-1.035); Urobilinogen Urine 0.2 mg/dL (<2.0); White Blood Count 4.3 K/mm3 (4.5-10.0); pH Urine 6.5 (5.0-9.0)
--- OUTSIDE RECORDS SUMMARY | 2024-09-01 12:19 | XMS_ITS | Encounter Summary ---
Author Organization [facility] Address [address] [place] [address] Phone Care Team Providers Care Board Machine Set Up Operator Name Role Phone Jaime Buck MD Primary Care Provider [phone] Carlo Martinez DO Unavailable [phone] Reason for Visit * Reason Comments Medication Refill Encounter Details Date Type Department Care Team (Late st Contact Info) Description 07/02/2020 Refill [facility] - Neurology - [place] #1 [place] [address] Hitesh Enciso MD [address] [place] [address] Medication Refill Social History Tobacco Use Types [...] on filedocumented in this encounter Care Teams Board Machine Set Up Operator Relationship Specialty Start Date End Date Jaime Buck MD [address] [place] [address] PCP - General Family Medicine 03/29/15 Carlo Martinez DO [address] [place] [address] Gastroenterology 03/29/15 documented as of this encounter
--- OUTSIDE RECORDS SUMMARY | 2024-09-01 12:19 | XMS_ITS | Encounter Summary ---
Author Organization [facility] Healthcare Address [address] [place] [address] Care Team Providers Care Adult Basic Education Teacher Name Role Phone Jaime Buck MD Primary Care Provider [phone] Tristin HSU MD, Ochoa Maddox Unavailable [phone] Janet Meier MD Unavailable [phone] Peewee Dalton PSYCHOLOGY TECH Primary Care Provider [phone] Jessica Melendez INFUSION PHARMACIST Unavailable [phone] Theresa Plasencia DPT Unavailable [phone] Dawna Lara INFUSION PHARMACIST Unavailable [phone] Jenni Ochoa MD Unavailable [phone] Joann HSU MD PhD, Benito Palafox Unavailable Ez Ansari MD Unavailable [phone] Jevon Mohr MD Unavailable [phone] Vipul Palomo MD Primary Care Provider [phone] Neyda Ba PSYCHOLOGY TECH Primary Care Provider [phone] Nehal Price MD Unavailable [phone] Encounter Details Date Type Department Care Team (Late st Contact Info) Description 09/15/2018 Telephone [facility] Radiology [address] [place] [address] Kustra, Ella Zina, RN Social [...] on file 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 Gender Identity Not on file Sexual Orientation Not on file documented as of this encounter Plan of Treatment Not on file documented as of this encounter Visit Diagnoses Not on filedocumented in this encounter Care Teams Adult Basic Education Teacher Relationship Specialty Start Date End Date Jaime Buck MD [address] [place] [address] PCP - General 08/08/16 05/21/20 Peewee Dalton NP [address] [facility] 1 [facility] 1 [place] [address] PCP - General Nurse Practitioner 05/22/20 07/20/23 Vipul Palomo MD [facility]5 [facility] [address] [place] [address] PCP - General Family Practice 07/21/23 06/14/24 Neyda Ba NP [address] [facility] 1 [facility] 1 [place] [address] PCP - General Nurse Practitioner 06/15/24 Ochoa Crow III, MD [address] [facility] [address] [place] [address] Consulting Physician Rheumatology 04/09/17 Janet Meier MD [address] [place] [address] Referring Physician Pulmonary Disease 05/12/18 06/14/24 Jessica Melendez, INFUSION PHARMACIST [address] [facility] 1 [address] [place] [address] Speech Language Pathologist Speech Therapy 10/25/20 12/17/20 Theresa Plasencia, DPT [address] [facility] [address] [place] [address] Physical Therapist Physical Therapy 11/23/20 Dawna Lara, INFUSION PHARMACIST [address] [facility] 1 [address] [place] [address] Speech Language Pathologist Speech Therapy 12/18/20 02/18/21 Jenni Ochoa MD [address] [facility] 1 [place] [address] Consulting Physician Rheumatology 11/26/21 Benito David III, MD PhD [address] [facility] 1 [address] [place] [address] Neurologist Neurology 11/26/21 Ez Ansari MD [address] [place] [address] Consulting Physician Ophthalmology 11/26/21 Jevon Mohr MD [address] [facility] [address] [place] [address] Gaming Pit Boss Cardiology 11/26/21 Nehal Price MD [address] [place] [address] Consulting Physician Pulmonary Disease 06/15/24 documented as of this encounter
--- OUTSIDE RECORDS SUMMARY | 2024-09-01 12:19 | XMS_ITS | Continuity of Care Document ---
Author Organization Located within [facility] Address [address] [place] [address] [place] [address] Phone Care Team Providers Care Pond Tender Name Role Phone Will Elias Unavailable Unavailable [...] Copied on Encounter Office/outpat ient Visit, [facility], [address] [place] [address] [address], [place], [place], [id number], [place] tel:[phone] [facility] No Information 5-201 0 Krishnasamy Will. [address] [facility] 102, [place], [place], [facility], [place]. tel:[phone] [facility], [address] [place] [address] [address], [place], [place], [id number], [place] tel:[phone] [facility] No Information 2-200 9 Krishnasamy Will. [address] [facility] 102, [place], [address], [place]. tel:[phone] Referring Provider: Will garcía 2421 [facility] 102, [place], [facility]. tel:[phone] Office/outpat ient Visit, [facility] Eye [facility] [place], [address] [place] [address] [address], [place], [place], [address], tel:[phone] [facility] No Information Jan-0 3-200 9 Krishnasamy Will. [address] [facility] 102, [place], [facility], . tel:[phone] Referring Provider: Carlo Blum, [address] [place] [address] [address], [place], [facility]. tel:[phone] Office/outpat ient Visit, [facility], [address] [place] [address] [address], [place], [place], [address], tel:[phone] [facility] No Information [address] Carlo. [address] [place] [address] , [address], [place], [facility], . tel:[phone] [facility], [address] [place], [place] [address], [place], [place], [address], tel:[phone] [facility] No Information 9-200 9 Krishnasamy Will. [facility] 102, [place], [facility], . tel:[phone] Family History Family Member Type Diagnosis Age At Onset No Information Payers Payer name Insurance type Covered alliance party ID Authoriza tion(s) Medicare [facility] [id number] BCBS PA Commercial BL [id number] Social History Type Description Quantity Date Captured [...]
--- OUTSIDE RECORDS SUMMARY | 2024-09-01 12:19 | XMS_ITS | Encounter Summary ---
Author Organization [facility] Address [address] [place] [address] Phone Care Team Providers Care Funeral Professional Name Role Phone Jaime Buck MD Primary Care Provider [phone] Carlo Martinez DO Unavailable [phone] Reason for Visit * Reason Comments Medication Refill Encounter Details Date Type Department Care Team (Late st Contact Info) Description 05/19/[address] [facility] - Gastroenterology - [place] [address] [place] [address] Tashia Aguilra Pretty, PAC [address] [place] [address] Medication Refill Social History Tobacco Use Types [...] Deanna Lake RN - 05/21/2021 4:28 PM DIRECTOR LEARNING AND DEVELOPMENT Medication refilled and signed per [facility] chronic medication standing order for pediatric and adult patients. CTOR LEARNING AND DEVELOPMENT * Telephone Encounter - Deanna Lake RN - 05/21/2021 4:21 PM DIRECTOR LEARNING AND DEVELOPMENT Pharmacy requesting refill of: Requested Prescriptions Pending Prescriptions Disp Refills ??? famotidine (PEPCID) 20 MG Tablet [Pharmacy Med Name: FAMOTIDINE 20MG TABLETS] 180 Tablet 3 Sig: TAKE 1 TABLET BY MOUTH TWICE DAILY Last fill: 05/28/2020 Patients last OV with GI: telemedicine office visit on 05/28/2020 Next Office Visit with GI: None scheduled. Called patient, offered an appt. Patient scheduled 06/03/2021. CTOR LEARNING AND DEVELOPMENT documented in this encounter Plan of Treatment Not on file documented as of this encounter Visit Diagnoses Diagnosis Gastroesophageal reflux disease with esophagitis without hemorrhage documented in this encounter Care Teams Funeral Professional Relationship Specialty Start Date End Date Jaime Buck MD [address] [place] [address] PCP - General Family Medicine 03/29/15 Carlo Martinez DO [address] [place] [address] Gastroenterology 03/29/15 documented as of this encounter
--- OUTSIDE RECORDS SUMMARY | 2024-09-01 12:19 | XMS_ITS | Clinical Summary ---
Author Organization COUNT INCLUDES [facility] Address PHYSICIAN BUILDING [address] [place] [address] [address] [place] [address] Phone Care Team Providers Care Faro Dealer Name Role Phone Jaime Buck MD Primary Care Provider [phone] Carlo Martinez DO Unavailable [phone] Allergies Active Allergy Reactions Criticality Noted [...] 93 kg (205 lb) 05/28/2020 9:09 AM CHOKE SETTER Adarsh bal Height 170.2 cm (5' 7 ) 05/28/2020 9:09 AM CHOKE SETTER Body Mass Index 32.11 05/28/2020 9:09 AM CHOKE SETTER Plan of Treatment Health Maintenance Due Date [...] patient's age to complete [place] [address] MEDICARE [facility] Advance Directives Documents on File Type Date Recorded 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
--- OUTSIDE RECORDS SUMMARY | 2024-09-01 12:19 | XMS_ITS | Encounter Summary ---
Author Organization [facility] Address [address] [place] [address] Phone Care Team Providers Care Perishable Fruit Inspector Name Role Phone Jaime Buck MD Primary Care Provider [phone] Carlo Martinez DO Unavailable [phone] Reason for Visit * Reason Comments Medication Refill Encounter Details Date Type Department Care Team (Late st Contact Info) Description 09/05/2020 Refill [facility] - Neurology - [place] #1 [place] [address] Hitesh Enciso MD #[address] [place] [phone] Medication Refill Social History Tobacco Use Types [...] neuralgia documented in this encounter Care Teams Perishable Fruit Inspector Relationship Specialty Start Date End Date Jaime Buck MD [address] [place] [address] PCP - General Family Medicine 03/29/15 Carlo Martinez DO [address] [place] [address] Gastroenterology 03/29/15 documented as of this encounter
--- OUTSIDE RECORDS SUMMARY | 2024-09-01 12:19 | XMS_ITS | Clinical Summary ---
Author Organization [facility] [address] Address [address] [place] [address] Care Team Providers Care Road Passenger Firer Name Role Phone Tristin HSU MD, Ochoa Maddox Unavailable [phone] Theresa Plasencia DPT Unavailable [phone] Jenni Ochoa MD Unavailable [phone] Joann HSU MD PhD, Benito Palafox Unavailable Ez Ansari MD Unavailable Jevon Mohr MD Unavailable [phone] Neyda Ba NP Primary Care Provider [phone] Nehal Price MD Unavailable [phone] Allergies Active Allergy Reactions Criticality Noted Date [...] 1 tablet (75 mcg total) by mouth home energy auditor before breakfast 3 9 Active hydrOXYchloroQ UINE [...] (12/24/2021): Added automatically from request for surgery [id number] Abnormal CT scan, gastrointestinal tract 022 Overview (12/18/2021): Added automatically from request for surgery [id number] Diplopia 08/28/2021 Bilateral lower extremity edema 10/26/2020 [...] he has had a swallow study with PALLIATIVE NURSE in 2020. We discussed another swallow evaluation, but they prefer to hold off. Diplopia has extensively evaluated by Neuro-Ophtalmology (Dr. Montero), and is suspected to be PD-related. I recommend the following: Continue carbidopa/levodopa. Okay to take extra tab before [employer] games. Cut back ropinirole from 6 tabs [...] wonder if this is related to adverse SEWING LINE BALER effects of these medications. He can try [...] he has had a swallow study with PALLIATIVE NURSE in 2020. We discussed another swallow evaluation, [...] carbidopa/levodopa. Okay to take extra tab before [employer] games. Continue ropinirole. Continue gabapentin. We discussed [...] with applesauce, pudding or yogurt; or dissolving kkn-yriw-banrai pills in OJ or grape juice. No [...] sleepiness. Assessment & Plan (04/28/2022 3:53 PM CEREAL CHEMIST): PD remains well controlled on his current [...] twice a day 5. Follow-up with your Neuro-Fashion Editor 6. 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 Has seen ginning operator and epilepsy physician for this issue. Assessment & Plan (12/31/2017 [...] inhaler prn. Advised to follow up with computer project manager. Urticaria, unspecified 08/21/2016 Erectile dysfunction due to [...] Description 08/26/2024 4:30 PM CDT Office Visit [facility] Movement Disorders [address] [facility] 7th [place] [address] Benito David III, MD PhD 08/15/2024 9:45 AM CDT Office Visit [facility] Hand Surgery [facility] [address] [place] [phone] Georges Wallis MD Pain of finger of left hand (Primary Dx) 08/11/2024 Results Follow-Up [facility] Cardiology [address] [place] [phone] Jevon Mohr MD Bilateral lower extremity edema 08/01/2024 Telephone [facility] Cardiology [address] [place] [address] Jevon Mohr MD 07/18/2024 9:15 AM CDT Office Visit [facility] Hand Surgery [facility] [address] [place] [phone] Georges Wallis MD Pain of finger of left hand (Primary Dx) 07/15/2024 Orders Only [facility] Hand Surgery [address] [place] [address] [place] [phone] Georges Wallis MD 07/04/2024 10:45 AM CEREAL CHEMIST Office Visit [facility] Hand Surgery [address] [place] [address] [place] [phone] Harriet Jacobs, CLOTHING ROOM SUPERVISOR Pain of finger of left hand (Primary Dx); Acute osteomyelitis of phalanx of hand, left (HCC) 06/30/2024 1:00 PM CEREAL CHEMIST Office Visit [facility] Cardiology [address] [facility] [address] [place] [address] Jevon Mohr MD Coronary artery disease involving te-moak coronary artery 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-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 (Primary Dx); Essential hypertension; Hyperlipidemia LDL goal <70; MADDIE (obstructive sleep apnea) 06/27/2024 8:30 AM CEREAL CHEMIST Office Visit [facility] Hand Surgery [address] [place] [address] [place] [phone] Harriet Jacobs, CLOTHING ROOM SUPERVISOR Pain of finger of left hand (Primary Dx) 06/21/2024 10:01 AM CEREAL CHEMIST Anesthesia Event [facility] [place] [address] [place] [address] Kenneth Valenzuela MD Lee, Walter, MD 06/21/2024 10:00 AM CEREAL CHEMIST - 06/21/2024 10:30 AM CEREAL CHEMIST Surgery [facility] [place] [address] [place] [address] Georges Wallis MD 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 06/21/2024 7:52 AM CEREAL CHEMIST - 06/21/2024 12:10 PM CEREAL CHEMIST Hospital Encounter [facility] [place] [address] [place] [address] Georges Wallis MD Acute osteomyelitis of phalanx of hand, left (HCC) [M86.142] (Primary Dx); Acute osteomyelitis of phalanx of hand, left (HCC) Discharge Disposition: Discharge to home or self care 06/17/2024 Telephone [facility] Orthopedics and Sports Medicine [address] [place] [address] [address] [place] [address] Georges Wallis MD 06/13/2024 9:15 AM CEREAL CHEMIST Office Visit [facility] Hand Surgery [address] [place] [address] [address] [place] [address] Georges Wallis MD Pain of finger of left hand (Primary Dx); Other chronic osteomyelitis of left hand (HCC) 06/13/2024 Telephone [facility] Orthopedics and Sports Medicine [address] [place] [address] [address] [place] [address] Georges Wallis MD cardiac clearance 06/08/2024 Telephone [facility] Pulmonology [address] [place] [address] [address] [place] [address] Isabella Randall MA 06/08/2024 Documentation [facility] Pulmonology [address] [place] [address] [address] [place] [address] Isabella Randall MA from Last [...] obstructive pulmonary disease (HCC) 05/12 Parkinson disease ([facility]) 09/26/2020 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, with psychotic disturbance ([facility]) 03/03/2024 Lung disease Hypothyroidism Anemia Family History Medical History Relation Name Comments Congenital heart disease Brother 1 Kota Crohn's disease Brother 2 Thomas Heart disease Brother 2 Thomas Coronary arter y disease; Heart attack Father Guillermo [place]; Cause of De ath: [place] Stomach cancer Mother Lilliian cancer, gastr ic; [...] on file Legal Sex Male 7:30 PM CEREAL CHEMIST Gender Identity Not on file Sexual Orientation Not on file Obstetrics History Last Filed Vital Signs Vital Sign Reading Time Taken Comments Blood Pressure 131/69 08/26/2024 3:57 PM CDT Pulse 63 08/26/2024 3:57 PM CDT Temperature 36.1 C (97 F) 06/21/2024 11:15 AM CEREAL CHEMIST Respiratory Rate 18 06/21/2024 11:50 AM CEREAL CHEMIST Oxygen Saturation 95% 06/30/2024 1:07 PM CEREAL CHEMIST Inhaled Oxygen Concentration - - Weight 83.5 [...] edema SURGICAL PATHOLOGY Routine 06/21/2024 10:20 AM CEREAL CHEMIST Acute osteomyelitis of phalanx of hand, left (HCC) WA AN PROCEDURE PLACEHOLDER Routine 06/21/2024 10:19 AM CEREAL CHEMIST WA AN ELECTIVE SUPRAGLOTTIC AIRWAY Routine 06/21/2024 10:19 AM CEREAL CHEMIST AMPUTATION FINGER 06/21/2024 10:06 AM CEREAL CHEMIST Acute osteomyelitis of phalanx of hand, left [...] BLOOD ORDERABLES Baylee l Result [facility] [address] [place] [address] * Surgical pathology (06/21/2024 10:20 AM CEREAL CHEMIST) Tissue specimen (specimen) (Amputation non-tramatic) 06/21/2024 10:20 AM CEREAL CHEMIST Narrative PATHOLOGY [facility] - 06/22/2024 1:41 PM CEREAL CHEMIST [facility] Department of Pathology [address] [place] [address] Note to Patients: This report may contain [...] 1940 (Age: 84) Gender: M Address: [address] [place] [address] Hospital #: [id number] Service: Surgery Location: Patient Type: [facility] OUTPATIENT Taken: 06/21/2024 Received: 06/21/2024 Accessioned: [...] for gross examination only. AMARILIS White, PA ([facility]) Microscopic slide review and interpretation for this case was performed at [facility], Department of Surgical Pathology, [address] [facility] [place], [place] [id number], [place] [address] [facility] # [id number] us Georges Wallis MD LAB PATHOLOGY ORDERABLES Final Result PATHOLOGY [facility] * WA AN ELECTIVE SUPRAGLOTTIC AIRWAY, WA AN PROCEDURE PLACEHOLDER (06/21/2024 10:19 AM CEREAL CHEMIST) Narrative Deanna Lr CRNA - 06/21/2024 10:19 AM CEREAL CHEMIST Deanna Lr CRNA 06/21/2024 10:20 AM Airway Patient location: OR Urgency: elective Indications for airway management: anesthesia Difficult airway: no Staff: Supervising provider: Kenneth Valenzuela MD Placed by: CARRIER OPERATOR: Deanna Lr CRNA Emergent airway documentation: Risks [...] Last 3 Months Insurance MEDICARE [facility] MEDICARE [facility] [address] [place] [id number] MEDICARE [facility] MEDICARE SUPPLEMENT [address] [id number] MEDICARE [facility] MEDICARE SUPPLEMENT Advance Directives For more information, please contact: [phone] Documents on File Type Date Recorded Patient Salvage Mend Worker Expl anation Power of Flooring Machine Operator 06/13/2024 9:34 AM * Full Code (Latest Code Status on File) Date Activated Date Inactivated Comments 12/24/2021 8:42 AM 12/24/2021 4:[address] Passenger Firer Relationship Specialty Start Date End Date Neyda Ba NP [address] [place] [address] PCP - General Nurse Practitioner 06/15/24 Ochoa Crow III, MD [address] [place] [address] Consulting Physician Rheumatology 04/09/17 Theresa Plasencia DPT [address] [place] [address] Physical Therapist Physical Therapy 11/23/20 Jenni Ochoa MD [address] [place] [address] Consulting Physician Rheumatology 11/26/21 Benito David III, MD PhD [address] [place] [address] Neurologist Neurology 11/26/21 Ez Ansari MD [address] [place], [place] [address] Consulting Physician Ophthalmology 11/26/21 Jevon Mohr MD [address] [address] Auto Hiker Cardiology 11/26/21 Nehal Price MD [address] [facility] 202 [place] [address] Consulting Physician Pulmonary Disease 06/15/24
--- OUTSIDE RECORDS SUMMARY | 2024-09-01 12:19 | XMS_ITS | Clinical Summary ---
Author Organization [facility] Address [address] [facility] [place] [address] Care Team Providers Care Special Education Aide Name Role Phone Mateus Johnson DO Primary Care Provider [phone] Source Comments [facility],non-owned Affiliates and Associated Physician Practices is amultiple site organization consisting of ambulatory clinics and hospital sitesin [place], [place], [place] and [place]. This disclosure is being madepursuant to the Care Everywhere program and may not contain all information available regarding this patient. Last updated 18.[facility] Allergies Active Allergy Reactions Criticality Noted Date [...] Comments Blood Pressure 132/63 05/13/2024 9:50 AM MANDARIN TEACHER Pulse 55 05/13/2024 9:50 AM MANDARIN TEACHER Temperature 36.3 C (97.3 F) 05/13/2024 9:50 AM MANDARIN TEACHER Respiratory Rate 18 05/13/2024 9:50 AM MANDARIN TEACHER Oxygen Saturation 98% 05/13/2024 9:50 AM MANDARIN TEACHER Inhaled Oxygen Concentration - - Weight 82.1 kg (181 lb) 05/13/2024 4:36 AM MANDARIN TEACHER Height 157.5 cm (5' 2 ) 05/13/2024 4:36 AM MANDARIN TEACHER Body Mass Index 33.11 05/13/2024 4:36 AM MANDARIN TEACHER Plan of Treatment Health Maintenance Due Date [...] to complete this topic Insurance MEDICARE MEDICARE [facility] MEDICARE [facility] Advance Directives Documents on File Type Date Recorded Patient Continuous Miner Operator Expl anation Healthcare Power of Clerk Secretary 05/18/2020 Medical POA * Full Code (Latest Code Status on File) Date Activated Date Inactivated Comments 05/12/2024 6:15 PM 05/13/2024 4:05 PM Care Teams Special Education Aide Relationship Specialty Start Date End Date Mateus Johnson DO [address] [facility] [place] [address] PCP - General 03/12/21
--- OUTSIDE RECORDS SUMMARY | 2024-09-01 12:19 | XMS_ITS | Referral Summary ---
Author Organization [facility] [address] [facility] [address] Address [address] [place] [address] Care Team Providers Care Wet And Dry Sugar Bin Operator Name Role Phone Tristin HSU MD, Ochoa Maddox Unavailable Theresa Plasencia DPT Unavailable [phone] Jenni Ochoa MD Unavailable [phone] Joann HSU MD PhD, Benito Palafox Unavailable Ez Ansari MD Unavailable Jevon Mohr MD Unavailable Neyda Ba NP Primary Care Provider Nehal Price MD Unavailable [phone] Encounters Date Type Department Care Team Description 08/26/2024 4:30 PM CDT Office Visit [facility] Movement Disorders [address] [facility] 7th [place] [address] Benito David III, MD PhD 08/15/2024 9:45 AM CDT Office Visit [facility] Hand Surgery [address] [facility] [address] [place] [address] Georges Wallis MD Pain of finger of left hand (Primary Dx) 08/11/2024 Results Follow-Up [facility] Cardiology [address] [place] [address] Jevon Mohr MD Bilateral lower extremity edema 08/01/2024 Telephone [facility] Cardiology [address] [place] [phone] Jevon Mohr MD 07/18/2024 9:15 AM CDT Office Visit [facility] Hand Surgery [address] [place] [address] [place] [phone] Georges Wallis MD Pain of finger of left hand (Primary Dx) 07/15/2024 Orders Only [facility] Hand Surgery [address] [place] [address] [place] [address] Georges Wallis MD 07/04/2024 10:45 AM CLINICAL RESOURCE DIRECTOR Office Visit [facility] Hand Surgery [address] [place] [address] [place] [address] Harriet Jacobs, REGULATORY AFFAIRS DIRECTOR Pain of finger of left hand (Primary Dx); Acute osteomyelitis of phalanx of hand, left (HCC) 06/30/2024 1:00 PM CLINICAL RESOURCE DIRECTOR Office Visit [facility] Cardiology [address] [place] [phone] Jevon Mohr MD Coronary artery disease involving shungnak coronary artery of shungnak heart without angina pectoris (Primary Dx); Essential hypertension; Hyperlipidemia LDL goal <70; MADDIE (obstructive sleep apnea) 06/27/2024 8:30 AM CLINICAL RESOURCE DIRECTOR Office Visit [facility] Hand Surgery [address] [place] [address] [place] [address] Harriet Jacobs, REGULATORY AFFAIRS DIRECTOR Pain of finger of left hand (Primary Dx) 06/21/2024 10:00 AM CLINICAL RESOURCE DIRECTOR - 06/21/2024 10:30 AM CLINICAL RESOURCE DIRECTOR Surgery [facility] [place] [address] [place] [address] Georges Wallis MD 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 06/21/2024 10:01 AM CLINICAL RESOURCE DIRECTOR Anesthesia Event [facility] OR [address] [place] [address] Kenneth Valenzuela MD Lee, Walter, MD 06/21/2024 7:52 AM CLINICAL RESOURCE DIRECTOR - 06/21/2024 12:10 PM CLINICAL RESOURCE DIRECTOR Hospital Encounter [facility] [place] [address] [place] [address] Georges Wallis MD Acute osteomyelitis of phalanx of hand, left (HCC) [M86.142] (Primary Dx); Acute osteomyelitis of phalanx of hand, left (HCC) Discharge Disposition: Discharge to home or self care 06/17/2024 Telephone [facility] Orthopedics and Sports Medicine [address] [place] [address] Georges Wallis MD 06/13/2024 Telephone [facility] Orthopedics and Sports Medicine [address] [place] [address] [address] [place] [address] Georges Wallis MD cardiac clearance 06/13/2024 9:15 AM CLINICAL RESOURCE DIRECTOR Office Visit [facility] Hand Surgery [address] [place] [address] [address] [place] [address] Georges Wallis MD Pain of finger of left hand (Primary Dx); Other chronic osteomyelitis of left hand (HCC) 06/08/2024 Telephone [facility] Pulmonology [address] [place] [address] [address] [place] [address] Isabella Randall MA 06/08/2024 Documentation [facility] Pulmonology [address] [place] [address] [address] [place] [address] Isabella Randall MA from Last 3 Months [...] 1 tablet (75 mcg total) by mouth fire controlman before breakfast 3 9 Active hydrOXYchloroQ UINE [...] (12/24/2021): Added automatically from request for surgery [id number] Abnormal CT scan, gastrointestinal tract 022 Overview (12/18/2021): Added automatically from request for surgery [id number] Diplopia 08/28/2021 Bilateral lower extremity edema 10/26/2020 [...] he has had a swallow study with ROLLER SKATES ASSEMBLER in 2020. We discussed another swallow evaluation, but they prefer to hold off. Diplopia has extensively evaluated by Neuro-Ophtalmology (Dr. Montero), and is suspected to be PD-related. I recommend the following: Continue carbidopa/levodopa. Okay to take extra tab before [employer] games. Cut back ropinirole from 6 tabs [...] wonder if this is related to adverse BILINGUAL RECEPTIONIST effects of these medications. He can try [...] he has had a swallow study with ROLLER SKATES ASSEMBLER in 2020. We discussed another swallow evaluation, [...] with applesauce, pudding or yogurt; or dissolving jis-cmya-grzmlp pills in OJ or grape juice. No [...] sleepiness. Assessment & Plan (04/28/2022 3:53 PM CLINICAL RESOURCE DIRECTOR): PD remains well controlled on his current [...] twice a day 5. Follow-up with your Neuro-Heater Installer 6. Referral to Physical Therapy Assessment & [...] RF, CCP neg 02/24 Rheumatoid arthritis of [facility] sites without rheumatoid factor 02/27/2017 Overview (02/17/2018): [...] related to a rheumatological cause. Has seen multi care technician and maintenance helper for this issue. Assessment & Plan (12/31/2017 [...] in sister. Coronary artery disease invo lving shungnak coronary artery of shungnak heart without angina pectoris 12/19/2016 Essential hypertension 12/19/2016 MOSHER (dyspnea on exertion) 12/19/2016 Assessment & Plan (03/05/2018 12:49 PM CDT): Patient having shortness of breath with walking and talking. Has stopped Ellipta inhaler, but still has albuterol inhaler prn. Advised to follow up with piano case maker. Urticaria, unspecified 08/21/2016 Erectile dysfunction due to [...] on file Legal Sex Male 7:30 PM CLINICAL RESOURCE DIRECTOR Gender Identity Not on file Sexual Orientation Not on file Last Filed Vital Signs Vital Sign Reading Time Taken Comments Blood Pressure 131/69 08/26/2024 3:57 PM CDT Pulse 63 08/26/2024 3:57 PM CDT Temperature 36.1 C (97 F) 06/21/2024 11:15 AM CLINICAL RESOURCE DIRECTOR Respiratory Rate 18 06/21/2024 11:50 AM CLINICAL RESOURCE DIRECTOR Oxygen Saturation 95% 06/30/2024 1:07 PM CLINICAL RESOURCE DIRECTOR Inhaled Oxygen Concentration - - Weight 83.5 [...] edema SURGICAL PATHOLOGY Routine 06/21/2024 10:20 AM CLINICAL RESOURCE DIRECTOR Acute osteomyelitis of phalanx of hand, left (HCC) NV AN PROCEDURE PLACEHOLDER Routine 06/21/2024 10:19 AM CLINICAL RESOURCE DIRECTOR NV AN ELECTIVE SUPRAGLOTTIC AIRWAY Routine 06/21/2024 10:19 AM CLINICAL RESOURCE DIRECTOR AMPUTATION FINGER 06/21/2024 10:06 AM CLINICAL RESOURCE DIRECTOR Acute osteomyelitis of phalanx of hand, left [...] MD LAB BLOOD ORDERABLES Baylee l Result [facility] [address] [place] [address] * Surgical pathology (06/21/2024 10:20 AM CLINICAL RESOURCE DIRECTOR) Tissue specimen (specimen) (Amputation non-tramatic) 06/21/2024 10:20 AM CLINICAL RESOURCE DIRECTOR Narrative PATHOLOGY [facility] - 06/22/2024 1:41 PM CLINICAL RESOURCE DIRECTOR [facility] Department of Pathology [address] [place] [address] Note to Patients: This report may contain [...] 1940 (Age: 84) Gender: M Address: [address] [id number] Hospital #: [id number] Service: Surgery Location: Patient Type: [facility] OUTPATIENT Taken: 06/21/2024 Received: 06/21/2024 Accessioned: [...] for this case was performed at [facility], Department of Surgical Pathology, [address] [facility] [place], [place] [id number], [place] [id number] [place] # [id number] us Georges Wallis MD LAB PATHOLOGY ORDERABLES Final Result PATHOLOGY [facility] * NV AN ELECTIVE SUPRAGLOTTIC AIRWAY, NV AN PROCEDURE PLACEHOLDER (06/21/2024 10:19 AM CLINICAL RESOURCE DIRECTOR) Narrative Deanna Lr CRNA - 06/21/2024 10:19 AM CLINICAL RESOURCE DIRECTOR Deanna Lr CRNA 06/21/2024 10:20 AM Airway Patient location: OR Urgency: elective Indications for airway management: anesthesia Difficult airway: no Staff: Supervising provider: Kenneth Valenzuela MD Placed by: DEVELOPMENT SCIENTIST: Deanna Lr CRNA Emergent airway documentation: Risks [...] esult from Last 3 Months Insurance MEDICARE [facility] MEDICARE [facility] MEDICARE [facility] MEDICARE SUPPLEMENT MEDICARE [facility] MEDICARE SUPPLEMENT Advance Directives For more information, please contact: [phone] Documents on File Type Date Recorded Patient Virologist Expl anation Power of Critical Care Educator 06/13/2024 9:34 AM * Full Code (Latest Code Status on File) Date Activated Date Inactivated Comments 12/24/2021 8:42 AM 12/24/2021 4:15 PM Care Teams Wet And Dry Sugar Bin Operator Relationship Specialty Start Date End Date Neyda Ba REGULATORY AFFAIRS DIRECTOR [address] [place] [address] PCP - General Nurse Practitioner 06/15/24 Ochoa Crow III, MD [address] [place] [address] Consulting Physician Rheumatology 04/09/17 Theresa Plasencia DPT [address] [place] [address] Physical Therapist Physical Therapy 11/23/20 Jenni Ochoa MD [address] [place] [address] Consulting Physician Rheumatology 11/26/21 Benito David III, MD PhD [address] [place] [address] Neurologist Neurology 11/26/21 Ez Ansari MD [address] [place], [place] [id number] Consulting Physician Ophthalmology 11/26/21 Jevon Mohr MD [address] [facility] [address] [place] [address] Corporate Safety Director Cardiology 11/26/21 Nehal Price MD [address] [place] [address] Consulting Physician Pulmonary Disease 06/15/24
--- OUTSIDE RECORDS SUMMARY | 2024-09-01 12:19 | XMS_ITS | Encounter Summary ---
Author Organization [facility] Address [address] [place] [address] Phone Care Team Providers Care Supervisor Forming And Tempering Name Role Phone Jaime Buck MD Primary Care Provider [phone] Carlo Martinez DO Unavailable [phone] Reason for Visit * Reason Comments Medication Refill Encounter Details Date Type Department Care Team (Late st Contact Info) Description 11/03/2020 Refill [facility] - Neurology - [place] [address] [place] [address] Hitesh Enciso MD [address] [place] [phone] Medication Refill Social History Tobacco Use Types [...] on filedocumented in this encounter Care Teams Supervisor Forming And Tempering Relationship Specialty Start Date End Date Jaime Buck MD [address] [place] [address] PCP - General Family Medicine 03/29/15 Carlo Martinez DO [address] [place] [address] Gastroenterology 03/29/15 documented as of this encounter
--- OUTSIDE RECORDS SUMMARY | 2024-09-01 12:19 | XMS_ITS | Encounter Summary ---
Author Organization [facility] Healthcare Address [address] [place] [address] Care Team Providers Care Medical Clinic Manager Name Role Phone Jaime Buck MD Primary Care Provider [phone] Tristin HSU MD, Ochoa Maddox Unavailable [phone] Janet Meier MD Unavailable [phone] Peewee Dalton SURVEYING TECHNICIAN Primary Care Provider [phone] Jessica Melendez PIECE JOBBER Unavailable [phone] Theresa Plasencia DPT Unavailable [phone] Dawna Lara PIECE JOBBER Unavailable [phone] Jenni Ochoa MD Unavailable [phone] Joann HSU MD PhD, Benito Palafox Unavailable Ez Ansari MD Unavailable [phone] Jevon Mohr MD Unavailable [phone] Vipul Palomo MD Primary Care Provider [phone] Neyda Ba SURVEYING TECHNICIAN Primary Care Provider [phone] Nehal Price MD Unavailable [phone] Encounter Details Date Type Department Care Team (Late st Contact Info) Description 08/25/2018 Telephone [facility] Radiology [address] [place] [address] Kustra, Ella Zina, RN Social [...] on file Legal Sex Male 7:30 PM WASH TANK TENDER Gender Identity Not on file Sexual Orientation Not on file documented as of this encounter Plan of Treatment Not on file documented as of this encounter Visit Diagnoses Not on filedocumented in this encounter Care Teams Medical Clinic Manager Relationship Specialty Start Date End Date Jaime Buck MD [address] [place] [address] PCP - General 08/08/16 05/21/20 Peewee Dalton NP [address] [facility] 1 [facility] 1 [place] [address] PCP - General Nurse Practitioner 05/22/20 07/20/23 Vipul Palomo MD [facility] [address] [place] [address] PCP - General Family Practice 07/21/23 06/14/24 Neyda Ba NP [address] [facility] 1 [facility] 1 [place] [address] PCP - General Nurse Practitioner 06/15/24 Ochoa Crow III, MD [address] [facility] [address] [place] [address] Consulting Physician Rheumatology 04/09/17 Janet Meier MD [address] [place] [address] Referring Physician Pulmonary Disease 05/12/18 06/14/24 Jessica Melendez, PIECE JOBBER [address] [facility] [address] [place] [address] Speech Language Pathologist Speech Therapy 10/25/20 12/17/20 Theresa Plasencia, DPT [address] [facility] [address] [place] [address] Physical Therapist Physical Therapy 11/23/20 Dawna Lara, PIECE JOBBER [address] [facility] [address] [place] [address] Speech Language Pathologist Speech Therapy 12/18/20 02/18/21 Jenni Ochoa MD [address] [facility] [address] [place] [address] Consulting Physician Rheumatology 11/26/21 Benito David III, MD PhD [address] [facility] [address] [place] [address] Neurologist Neurology 11/26/21 Ez Ansari MD [address] [place] [address] Consulting Physician Ophthalmology 11/26/21 Jevon Mohr MD [address] [facility] [address] [place] [address] Senior Electrical Controls Engineer Cardiology 11/26/21 Nehal Price MD [address] [place] [address] Consulting Physician Pulmonary Disease 06/15/24 documented as of this encounter
--- OUTSIDE RECORDS SUMMARY | 2024-09-01 12:19 | XMS_ITS | Encounter Summary ---
Author Organization [facility] Address [address] [place] [address] Phone Care Team Providers Care Senior Account Executive Name Role Phone Jaime Buck MD Primary Care Provider [phone] Carlo aMrtinez DO Unavailable [phone] Reason for Visit * Reason Comments Medication Refill Encounter Details Date Type Department Care Team (Late st Contact Info) Description 12/14/2020 Refill [facility] - Neurology [facility] [address] [place] [address] Hitesh Enciso MD [address] [place] [address] Medication Refill Social History Tobacco Use Types [...] neuralgia documented in this encounter Care Teams Senior Account Executive Relationship Specialty Start Date End Date Jaime Buck MD [address] [place] [address] PCP - General Family Medicine 03/29/15 Carlo Martinez DO [address] [place] [address] Gastroenterology 03/29/15 documented as of this encounter
--- OUTSIDE RECORDS SUMMARY | 2024-09-01 12:19 | XMS_ITS | Encounter Summary ---
Author Organization [facility] Address [address] [place] [address] Phone Care Team Providers Care Real Property Evaluator Name Role Phone Jaime Buck MD Primary Care Provider [phone] Carlo Martinez DO Unavailable [phone] Reason for Visit * Reason Comments Medication Refill Encounter Details Date Type Department Care Team (Late st Contact Info) Description 01/07/2021 Refill [facility] - Neurology [facility] [address] [place] [address] Hitesh Enciso MD [address] [place] [address] Medication Refill Social History Tobacco Use Types [...] on filedocumented in this encounter Care Teams Real Property Evaluator Relationship Specialty Start Date End Date Jaime Buck MD [address] [place] [address] PCP - General Family Medicine 03/29/15 Carlo Martinez DO [address] [place] [address] Gastroenterology 03/29/15 documented as of this encounter
--- OUTSIDE RECORDS SUMMARY | 2024-09-01 12:19 | XMS_ITS | Encounter Summary ---
Author Organization [facility] Address [address] [place] [address] Phone Care Team Providers Care Chief Deputy Clerk/Bailiff Name Role Phone Jaime Buck MD Primary Care Provider [phone] Carlo Martinez DO Unavailable [phone] Reason for Visit * Reason Comments Medication Refill Encounter Details Date Type Department Care Team (Late st Contact Info) Description 08/14/2020 Refill [facility] - Neurology - [place] [address] [place] [address] Hitesh Enciso MD [address] [place] [address] Medication Refill Social History Tobacco Use Types [...] on filedocumented in this encounter Care Teams Chief Deputy Clerk/Bailiff Relationship Specialty Start Date End Date Jaime Buck MD [address] [place] [address] PCP - General Family Medicine 03/29/15 Carlo Martinez DO [address] [place] [address] Gastroenterology 03/29/15 documented as of this encounter
--- OUTSIDE RECORDS SUMMARY | 2024-09-01 12:19 | XMS_ITS | Encounter Summary ---
Author Organization [facility] Address [address] [place] [address] Phone Care Team Providers Care Night Coordinator Name Role Phone Jaime Buck MD Primary Care Provider [phone] Carlo Martinez DO Unavailable [phone] Reason for Visit * Reason Comments Medication Refill Encounter Details Date Type Department Care Team (Late st Contact Info) Description 09/29/2020 Refill [facility] - Neurology - [place] [address] [place] [address] Hitesh Enciso MD [address] [place] [address] Medication Refill Social History Tobacco Use Types [...] on filedocumented in this encounter Care Teams Night Coordinator Relationship Specialty Start Date End Date Jaime Buck MD [address] [place] [address] PCP - General Family Medicine 03/29/15 Carlo Martinez DO [address] [place] [address] Gastroenterology 03/29/15 documented as of this encounter
--- OUTSIDE RECORDS SUMMARY | 2024-09-01 12:19 | XMS_ITS | Clinical Summary ---
Author Organization [employer] [address] [facility] Address [address] [place] [address] Care Team Providers Care Hr Director Name Role Phone Jaime Buck MD Primary Care Provider [phone] Allergies Active Allergy Reactions Criticality Noted Date [...] 02/18/2017, 05/11/2009 Medical Devices Implanted Type Area Charge Operator Device Identifier Shelf Expiration Date Model / Serial / Lot Hemostatic Surgiflo 8ml W/Thrombin 2994 - [id number] Implanted:Qty: 1 on 05/18/2019 by Tani Mcleod MD at [facility] N/A: Spine Lumbar [employer] 03/10/2020 [id number] / / [id number] Insurance [address] [id number] MEDICARE PART A AND B [facility] Advance Directives For more information, please contact: [phone] * Full Code (Latest Code Status on File) Date Activated Date Inactivated Comments 02/28/2022 11:10 AM 02/28/2022 5:54 PM * Full Code Date Activated Date Inactivated Comments 05/18/2019 10:00 AM 05/18/2019 3:39 PM Care Teams Hr Director Relationship Specialty Start Date End Date Jaime Buck MD [address] [place] [address] PCP - General Family Practice 03/08/19
[2024-09-01 12:24] LABS: Alanine Aminotransferase 8 U/L (6-50); Albumin Level 4.3 g/dL (3.5-5.1); Alkaline Phosphatase 149 U/L (38-126); Anion Gap 10 mmol/L (4-12); Aspartate Amino Transferase 22 U/L (17-59); Bilirubin,Total 0.4 mg/dL (0.2-1.3); Blood Urea Nitrogen 26 mg/dL (9-20); Calcium 8.8 mg/dL (8.4-10.2); Carbon Dioxide 29 mmol/L (22-30); Chloride 102 mmol/L (98-107); Estimated CRCL calculation 48 ml/min; Estimated Glomerular Filt Rate > 60; Glucose 87 mg/dL (65-110); Potassium 3.9 mmol/L (3.4-5.0); Sodium 141 mmol/L (137-145)
[2024-09-01 12:25] LABS: INR 0.9; Partial Thromboplastin Time 32.5 Seconds (22.3-36.8); Prothrombin Time 12.8 Seconds (11.1-14.7)
[2024-09-01 12:39] VITALS: BP 147/68; PULSE 57; RESP 18; O2SAT 100
[2024-09-01] MEDS: NEOMYCIN/POLYMYXIN/BACITRACIN OINTMENT 15 GM TUBE 1 APPLIC TOPICAL (15:19)
== END 2024-09-01 15:21 | disposition home or self-care (01) ==
PROVIDERS: Emergency Provider Emergency Medicine; PCP Nurse Practitioner Family
DX: S00.93XA Contusion of unspecified part of head, initial encounter (principal); W18.30XA Fall on same level, unspecified, initial encounter; G20.A1 Parkinson's disease without dyskinesia, without mention of fluctuations; J44.9 Chronic obstructive pulmonary disease, unspecified; I50.9 Heart failure, unspecified; E03.9 Hypothyroidism, unspecified; Z79.82 Long term (current) use of aspirin; M06.9 Rheumatoid arthritis, unspecified; I11.0 Hypertensive heart disease with heart failure; I25.10 Atherosclerotic heart disease of native coronary artery without angina pectoris; Z87.891 Personal history of nicotine dependence
CPT/HCPCS: 36415; 70450; 71045; 72125; 73080; 73502; 73630; 73700; 80053; 81003; 85025; 85610; 85730; 93005; 99284; A9270

== ENCOUNTER 2024-09-13 13:15 | Emergency (ER) | payer MEDICARE, SELFPAY ==
--- NOTE | ~2024-09-13 | XR_ITS ---
XR chest 2V Ordering provider: Zeus Anderson MD History: 84 years Male with . dyspnea dysphagia, hx of COPD . Comparison: September 01, 2024 FINDINGS: MEDIASTINUM: The cardiac silhouette is slightly enlarged. Postoperative changes in the mediastinum. LUNGS: No infiltrates, effusions or pneumothorax. OTHER: No free air under the diaphragm. Degenerative changes of the spine. IMPRESSION: No acute cardiopulmonary pathology. Reviewed, dictated and finalized at location A.
--- OUTSIDE RECORDS SUMMARY | 2024-09-13 13:21 | XMS_ITS | Encounter Summary ---
Author Organization [facility] Address [address] [place] [address] Phone Care Team Providers Care Conflicts Analyst Name Role Phone Jaime Buck MD Primary Care Provider [phone] Carlo Martinez DO Unavailable [phone] Reason for Visit * Reason Comments Medication Refill Encounter Details Date Type Department Care Team (Late st Contact Info) Description 05/19/2021 Refill [facility] - Gastroenterology - [place] [address] [place] [address] Tashia Aguilar Pretty, PAC [address] [place] [address] Medication Refill Social History Tobacco Use Types [...] Deanna Lake RN - 05/21/2021 4:28 PM SHIPYARD PAINTING SUPERVISOR Medication refilled and signed per [facility] chronic medication standing order for pediatric and adult patients. YARD PAINTING SUPERVISOR * Telephone Encounter - Deanna Lake RN - 05/21/2021 4:21 PM SHIPYARD PAINTING SUPERVISOR Pharmacy requesting refill of: Requested Prescriptions Pending Prescriptions Disp Refills ??? famotidine (PEPCID) 20 MG Tablet [Pharmacy Med Name: FAMOTIDINE 20MG TABLETS] 180 Tablet 3 Sig: TAKE 1 TABLET BY MOUTH TWICE DAILY Last fill: 05/28/2020 Patients last OV with GI: telemedicine office visit on 05/28/2020 Next Office Visit with GI: None scheduled. Called patient, offered an appt. Patient scheduled 06/03/2021. YARD PAINTING SUPERVISOR documented in this encounter Plan of Treatment Not on file documented as of this encounter Visit Diagnoses Diagnosis Gastroesophageal reflux disease with esophagitis without hemorrhage documented in this encounter Care Teams Conflicts Analyst Relationship Specialty Start Date End Date Jaime Buck MD [address] [place] [address] PCP - General Family Medicine 03/29/15 Carlo Martinez DO [address] [place] [address] Gastroenterology 03/29/15 documented as of this encounter
--- OUTSIDE RECORDS SUMMARY | 2024-09-13 13:21 | XMS_ITS | Clinical Summary ---
Author Organization [facility] Address [facility] [address] [place] [address] [address] [place] [address] Phone Care Team Providers Care Guard Manager Name Role Phone Jaime Buck MD Primary Care Provider [phone] Carlo Martinez DO Unavailable [phone] Allergies Active Allergy Reactions Criticality Noted Date [...] 93 kg (205 lb) 05/28/2020 9:09 AM TANKER SERVICEMAN Adarsh bal Height 170.2 cm (5' 7 ) 05/28/2020 9:09 AM TANKER SERVICEMAN Body Mass Index 32.11 05/28/2020 9:09 AM TANKER SERVICEMAN Plan of Treatment Health Maintenance Due Date [...] patient's age to complete [place] [address] MEDICARE [facility] Advance Directives Documents on File Type Date Recorded Patient Industrial Hygenist Expl anation POLST/POST/[place] DNR 01/04/2020 2:54 PM POLST 10/20/2018 Care Teams Guard Manager Relationship Specialty Start Date End Date Jaime Buck MD [address] [place] [address] PCP - General Family Medicine 03/29/15 Carlo Martinez DO [address] [place] [address] Gastroenterology 03/29/15
--- OUTSIDE RECORDS SUMMARY | 2024-09-13 13:21 | XMS_ITS | Encounter Summary ---
Author Organization [facility] Address [address] [place] [address] Phone Care Team Providers Care Sanitation Laborer Name Role Phone Jaime Buck MD Primary Care Provider [phone] Carlo Martinez DO Unavailable [phone] Reason for Visit * Reason Comments Medication Refill Encounter Details Date Type Department Care Team (Late st Contact Info) Description 12/14/2020 Refill [facility] - [facility] [address] [place] [address] Hitesh Enciso MD [address] [place] [id number] Medication Refill Social History Tobacco Use Types [...] neuralgia documented in this encounter Care Teams Sanitation Laborer Relationship Specialty Start Date End Date Jaime Buck MD [address] [place] [address] PCP - General Family Medicine 03/29/15 Carlo Martinez DO [address] [place] [address] Gastroenterology 03/29/15 documented as of this encounter
--- OUTSIDE RECORDS SUMMARY | 2024-09-13 13:21 | XMS_ITS | Clinical Summary ---
Author Organization [facility] [id number] [facility] Address [address] [place] [address] Care Team Providers Care Freight Car Cleaner Name Role Phone Jaime Buck MD Primary Care Provider [phone] Allergies Active Allergy Reactions Criticality Noted Date [...] 02/18/2017, 05/11/2009 Medical Devices Implanted Type Area Outside Medical Sales Representative Device Identifier Shelf Expiration Date Model / Serial / Lot Hemostatic Surgiflo 8ml W/Thrombin 2994 - [id number] Implanted:Qty: 1 on 05/18/2019 by Tani Mcleod MD at [facility] N/A: Spine Lumbar [employer] 03/10/2020 [id number] / / [id number] Insurance [id number] [id number] MEDICARE PART A AND B [facility] Advance Directives For more information, please contact: [phone] * Full Code (Latest Code Status on File) Date Activated Date Inactivated Comments 02/28/2022 11:10 AM 02/28/2022 5:54 PM * Full Code Date Activated Date Inactivated Comments 05/18/2019 10:00 AM 05/18/2019 3:39 PM Care Teams Freight Car Cleaner Relationship Specialty Start Date End Date Jaime Buck MD [address] [place] [address] PCP - General Family Practice 03/08/19
--- OUTSIDE RECORDS SUMMARY | 2024-09-13 13:21 | XMS_ITS | Encounter Summary ---
Author Organization [facility] Address [address] [place] [address] Phone Care Team Providers Care Mechanic Foreman Name Role Phone Jaime Buck MD Primary Care Provider [phone] Carlo Martinez DO Unavailable Reason for Visit * Reason Comments Medication Refill Encounter Details Date Type Department Care Team (Late st Contact Info) Description 11/03/2020 Refill [facility] - Neurology - [place] [address] [place] [address] Hitesh Enciso MD [address] [place] [address] Medication Refill Social History Tobacco Use Types [...] on filedocumented in this encounter Care Teams Mechanic Foreman Relationship Specialty Start Date End Date Jaime Buck MD [address] [place] [address] PCP - General Family Medicine 03/29/15 Carlo Martinez DO [address] [place] [address] Gastroenterology 03/29/15 documented as of this encounter
--- OUTSIDE RECORDS SUMMARY | 2024-09-13 13:21 | XMS_ITS | Clinical Summary ---
Author Organization [facility] Address [address] [facility] [place] [address] Care Team Providers Care Automatic Vulcanizing Operator Name Role Phone Mateus Johnson DO Primary Care Provider [phone] Source Comments [facility],non-owned Affiliates and Associated Physician Practices is amultiple site organization consisting of ambulatory clinics and hospital sitesin [place], [place], [place] and [place]. This disclosure is being madepursuant to the Care Everywhere program and may not contain all information available regarding this patient. Last updated 18.[facility] Allergies Active Allergy Reactions Criticality Noted Date [...] Comments Blood Pressure 132/63 05/13/2024 9:50 AM INVESTMENT CONSULTANT Pulse 55 05/13/2024 9:50 AM INVESTMENT CONSULTANT Temperature 36.3 C (97.3 F) 05/13/2024 9:50 AM INVESTMENT CONSULTANT Respiratory Rate 18 05/13/2024 9:50 AM INVESTMENT CONSULTANT Oxygen Saturation 98% 05/13/2024 9:50 AM INVESTMENT CONSULTANT Inhaled Oxygen Concentration - - Weight 82.1 kg (181 lb) 05/13/2024 4:36 AM INVESTMENT CONSULTANT Height 157.5 cm (5' 2 ) 05/13/2024 4:36 AM INVESTMENT CONSULTANT Body Mass Index 33.11 05/13/2024 4:36 AM INVESTMENT CONSULTANT Plan of Treatment Health Maintenance Due Date [...] to complete this topic Insurance MEDICARE [facility] Advance Directives Documents on File Type Date Recorded Patient Music Professionals Expl anation Healthcare Power of Bark Scaler 05/18/2020 Medical POA * Full Code (Latest Code Status on File) Date Activated Date Inactivated Comments 05/12/2024 6:15 PM 05/13/2024 4:05 PM Care Teams Automatic Vulcanizing Operator Relationship Specialty Start Date End Date Mateus Johnson DO [address] [facility] [address] [place] [address] PCP - General 03/12/21
[2024-09-13 13:22] VITALS: BP 127/58; PULSE 65; RESP 16; TEMP 36.8; O2SAT 97
--- OUTSIDE RECORDS SUMMARY | 2024-09-13 13:22 | XMS_ITS | Encounter Summary ---
Author Organization [facility] Address [address] [place] [address] Care Team Providers Care Parent Coach Name Role Phone Jaime Buck MD Primary Care Provider [phone] Tristin HSU MD, Ochoa Maddox Unavailable [phone] Janet Meier MD Unavailable [phone] Peewee Dalton PUBLIC HEALTH PHYSICIAN Primary Care Provider [phone] Jessica Melendez FOREST FI[employer] WARDEN Unavailable [phone] Theresa Plasencia DPT Unavailable [phone] Dawna Lara [employer] Unavailable [phone] Jenni Ochoa MD Unavailable [phone] Joann HSU MD PhD, Benito Palafox Unavailable Ez Ansari MD Unavailable [phone] Jevon Mohr MD Unavailable [phone] Vipul Palomo MD Primary Care Provider [phone] Neyda Ba PUBLIC HEALTH PHYSICIAN Primary Care Provider [phone] Nehal Price MD Unavailable [phone] Encounter Details Date Type Department Care Team (Late st Contact Info) Description 09/15/2018 Telephone [facility] Radiology [address] [place] [address] Kustra, Ella Zina, RN Social [...] on file Legal Sex Male 7:30 PM HYDRATE CONTROL TENDER Gender Identity Not on file Sexual Orientation Not on file documented as of this encounter Plan of Treatment Not on file documented as of this encounter Visit Diagnoses Not on filedocumented in this encounter Care Teams Parent Coach Relationship Specialty Start Date End Date Jaime Buck MD [address] [place] [address] PCP - General 08/08/16 05/21/20 Peewee Dalton NP [address] [facility] [address] [facility] 1 [place] [address] PCP - General Nurse Practitioner 05/22/20 07/20/23 Vipul Palomo MD [facility] [address] [place] [address] PCP - General Family Practice 07/21/23 06/14/24 Neyda Ba NP [address] [facility] [address] [facility] 1 [place] [address] PCP - General Nurse Practitioner 06/15/24 Ochoa Crow III, MD [address] [facility] [address] [place] [address] Consulting Physician Rheumatology 04/09/17 Janet Meier MD [address] [place] [address] Referring Physician Pulmonary Disease 05/12/18 06/14/24 Jessica Melendez, [employer]EN [address] [facility] [address] [place] [address] Speech Language Pathologist Speech Therapy 10/25/20 12/17/20 Theresa Plasencia, DPT [address] [facility] [address] [place] [address] Physical Therapist Physical Therapy 11/23/20 Dawna Lraa, [employer]EN [address] [facility] [address] [place] [address] Speech Language Pathologist Speech Therapy 12/18/20 02/18/21 Jenni Ochoa MD [address] [facility] [address] [place] [address] Consulting Physician Rheumatology 11/26/21 Benito David III, MD PhD [address] [facility] [address] [place] [address] Neurologist Neurology 11/26/21 Ez Ansari MD [address] [place] [address] Consulting Physician Ophthalmology 11/26/21 Jevon Mohr MD [address] [facility] [address] [place] [address] [employer] Cardiology 11/26/21 Nehal Price MD [address] [place] [address] Consulting Physician Pulmonary Disease 06/15/24 documented as of this encounter
--- OUTSIDE RECORDS SUMMARY | 2024-09-13 13:22 | XMS_ITS | Referral Summary ---
Author Organization [facility] [address] Address [address] [place] [address] Care Team Providers Care Explosive Ordnance Disposal Technician Name Role Phone Tristin HSU MD, Ochoa Maddox Unavailable Theresa Plasencia DPT Unavailable [phone] Jenni Ochoa MD Unavailable [phone] Joann HSU MD PhD, Benito Palafox Unavailable Ez Ansari MD Unavailable Jevon Mohr MD Unavailable Neyda Ba NP Primary Care Provider Nehal Price MD Unavailable Encounters Date Type Department Care Team Description 08/26/2024 4:30 PM CDT Office Visit [facility] Movement Disorders [address] [facility] 7th [place] [address] Benito David III, MD PhD Parkinson's disease without dyskinesia or fluctuating manifestations (HCC) (Primary Dx); Glossopharyngeal neuralgia; Restless legs syndrome 08/15/2024 9:45 AM CDT Office Visit [facility] Hand Surgery [facility] [address] [place] [phone] Georges Wallis MD Pain of finger of left hand (Primary Dx) 08/11/2024 Results Follow-Up [facility] Cardiology [address] [facility] [address] [place] [phone] Jevon Mohr MD Bilateral lower extremity edema 08/01/2024 Telephone [facility] Cardiology [address] [place] [address] [place] [phone] Jevon Mohr MD 07/18/2024 9:15 AM CDT Office Visit [facility] Hand Surgery [address] [place] [address] [place] [phone] Georges Wallis MD Pain of finger of left hand (Primary Dx) 07/15/2024 Orders Only [facility] Hand Surgery [address] [place] [address] [place] [phone] Georges Wallis MD 07/04/2024 10:45 AM CORRECTIONAL PROGRAM SPECIALIST Office Visit [facility] Hand Surgery [address] [place] [address] [place] [phone] Harriet Jacobs, ABHISHEK Pain of finger of left hand (Primary Dx); Acute osteomyelitis of phalanx of hand, left (HCC) 06/30/2024 1:00 PM CORRECTIONAL PROGRAM SPECIALIST Office Visit [facility] Cardiology [address] [place] [address] [place] [phone] Jevon Mohr MD Coronary artery disease involving paskenta coronary artery of paskenta heart without angina pectoris (Primary Dx); Essential hypertension; Hyperlipidemia LDL goal <70; MADDIE (obstructive sleep apnea) 06/27/2024 8:30 AM CORRECTIONAL PROGRAM SPECIALIST Office Visit [facility] Hand Surgery [address] [place] [address] [place] [phone] Harriet Jacobs, TELLER MANAGER Pain of finger of left hand (Primary Dx) 06/21/2024 10:00 AM CORRECTIONAL PROGRAM SPECIALIST - 06/21/2024 10:30 AM CORRECTIONAL PROGRAM SPECIALIST Surgery [facility] [place] [address] [place] [address] Georges Wallis MD 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 06/21/2024 10:01 AM CORRECTIONAL PROGRAM SPECIALIST Anesthesia Event [facility] [place] [address] [place] [address] Kenneth Valenzuela MD Lee, Walter, MD 06/21/2024 7:52 AM CORRECTIONAL PROGRAM SPECIALIST - 06/21/2024 12:10 PM CORRECTIONAL PROGRAM SPECIALIST Hospital Encounter [facility] [place] [address] [place] [address] Georges Wallis MD Acute osteomyelitis of phalanx of hand, left (HCC) [M86.142] (Primary Dx); Acute osteomyelitis of phalanx of hand, left (HCC) Discharge Disposition: Discharge to home or self care 06/17/2024 Telephone [facility] Orthopedics and Sports Medicine [address] [phone] Georges Wallis MD from Last 3 Months Allergies Active Allergy [...] 1 tablet (75 mcg total) by mouth phone operator before breakfast 3 9 Active hydrOXYchloroQ UINE [...] 08/27/19 25 Discontin ued(Thera py completed ) Active Problems Problem Noted Date Diagnosed Date Pyogenic inflammation of bone 06/14/2024 Pain of finger of left hand 06/14/2024 Acute osteomyelitis of phalanx of hand, left 07/2024 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, with psychotic disturbance 03/03/2024 Excessive daytime sleepiness 11/03/2022 RBD (REM behavioral disorder) 11/03/2022 Esophageal dysphagia 12/24/2021 Overview (12/24/2021): Added automatically from request for surgery [id number] Abnormal CT scan, gastrointestinal tract 022 Overview (12/18/2021): Added automatically from request for surgery [id number] Diplopia 08/28/2021 Bilateral lower extremity edema 10/26/2020 Parkinson disease 09/26/2020 Assessment & Plan (09/04/2024 1:33 PM CDT): 84 y.o.M with Restless Legs Syndrome since 2006 (age 66) and Parkinson Disease since around 2019 (age 79) manifest initially as generalized slowing/weakness and intermittent left hand rest tremor. Initially seen by Dr. Chau in 2020, who found bilateral parkinsonism and started levodopa. There was subsequent improvement. in tremor. His PD remains generally well controlled on his current levodopa regimen. Hallucinations and confusion have improved somewhat with tapering of ropinirole and stopping oxybutynin. We can continue to gradually lower the dose of ropinirole with monitoring of any worsening parkinsonism (can adjust levodopa) or RLS symptoms (can try more gabapentin). He was told to stop donepezil by a hospitalist for unknown reasons, but we will not resume if there is concern about possible adverse effects or cardiac risk. TSH and B12 have been normal. 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 Carbamazepine (CBZ) could be contributing to side effects, too, but he is worried about cutting back on the dose for fear of a recurrent attack of extreme pain. If higher doses of gabapentin are needed for RLS but limited by sedation/grogginess, the dose of CBZ might need to be cautiously reduced Could consider oxcarbazepine (OXC) in the future, if needed. Dysphagia has been an issue and he has had a swallow study with EMPLOYEE COMMUNICATIONS MANAGER in 2020. We have discussed another swallow evaluation, if desired. Diplopia has extensively evaluated by Neuro-Ophtalmology (Dr. Montero), and is suspected to be PD-related. We discussed that he could return to see Dr. Montero, if desired. I recommend the following: Continue carbidopa/levodopa. We discussed increasing the dose if parkinsonism worsens with tapering ropinrole. Continue to reduce ropinirole. Try stopping morning pill. After 1 week, can try stopping 3:30pm pill. Continue bedtime ropinirole. Continue gabapentin. We discussed that we could try additional gabapentin if RLS symtoms worsen with tapering ropinirole. Continue carbamazepine 200mg twice a day. Continue melatonin. We discussed low-dose clonazepam for RBD, if needed. Follow-up with your tie inspector. We discussed evaluation with [facility], if desired. We discussed follow-up with [facility], Dr. Montero, if needed. Return to Physical Therapy for gait/balance, if/when needed. Return to Speech Therapy for swallow evaluation, if/when needed Assessment & Plan (03/03/2024 1:45 PM CDT): [...] he has had a swallow study with EMPLOYEE COMMUNICATIONS MANAGER in 2020. We discussed another swallow evaluation, but they prefer to hold off. Diplopia has extensively evaluated by Neuro-Ophtalmology (Dr. Montero), and is suspected to be PD-related. I recommend the following: Continue carbidopa/levodopa. Okay to take extra tab before [employer] games. Cut back ropinirole from 6 tabs [...] wonder if this is related to adverse TAX INVESTIGATOR effects of these medications. He can try [...] he has had a swallow study with EMPLOYEE COMMUNICATIONS MANAGER in 2020. We discussed another swallow evaluation, [...] with applesauce, pudding or yogurt; or dissolving lkk-zphl-nirvol pills in OJ or grape juice. No [...] sleepiness. Assessment & Plan (04/28/2022 3:53 PM CORRECTIONAL PROGRAM SPECIALIST): PD remains well controlled on his current [...] twice a day 5. Follow-up with your Neuro-Manugrapher 6. Referral to Physical Therapy Assessment & [...] RF, CCP neg 02/24 Rheumatoid arthritis of mult iple sites without rheumatoid factor 02/27/2017 Overview (02/17/2018): [...] related to a rheumatological cause. Has seen animal biologist and bariatric physician for this issue. Assessment & Plan [...] in sister. Coronary artery disease invo lving paskenta coronary artery of paskenta heart without angina pectoris 12/19/2016 Essential hypertension 12/19/2016 MOSHER (dyspnea on exertion) 12/19/2016 Assessment & Plan (03/05/2018 12:49 PM CDT): Patient having shortness of breath with walking and talking. Has stopped Ellipta inhaler, but still has albuterol inhaler prn. Advised to follow up with tie inspector. Urticaria, unspecified 08/21/2016 Erectile dysfunction due to [...] on file Legal Sex Male 7:30 PM CORRECTIONAL PROGRAM SPECIALIST Gender Identity Not on file Sexual Orientation Not on file Last Filed Vital Signs Vital Sign Reading Time Taken Comments Blood Pressure 131/69 08/26/2024 3:57 PM CDT Pulse 63 08/26/2024 3:57 PM CDT Temperature 36.1 C (97 F) 06/21/2024 11:15 AM CORRECTIONAL PROGRAM SPECIALIST Respiratory Rate 18 06/21/2024 11:50 AM CORRECTIONAL PROGRAM SPECIALIST Oxygen Saturation 95% 06/30/2024 1:07 PM CORRECTIONAL PROGRAM SPECIALIST Inhaled Oxygen Concentration - - Weight 83.5 [...] edema SURGICAL PATHOLOGY Routine 06/21/2024 10:20 AM CORRECTIONAL PROGRAM SPECIALIST Acute osteomyelitis of phalanx of hand, left (HCC) UT AN PROCEDURE PLACEHOLDER Routine 06/21/2024 10:19 AM CORRECTIONAL PROGRAM SPECIALIST UT AN ELECTIVE SUPRAGLOTTIC AIRWAY Routine 06/21/2024 10:19 AM CORRECTIONAL PROGRAM SPECIALIST AMPUTATION FINGER 06/21/2024 10:06 AM CORRECTIONAL PROGRAM SPECIALIST Acute osteomyelitis of phalanx of hand, left [...] BLOOD ORDERABLES Baylee l Result [facility] [address] [place] [address] * Surgical pathology (06/21/2024 10:20 AM CORRECTIONAL PROGRAM SPECIALIST) Tissue specimen (specimen) (Amputation non-tramatic) 06/21/2024 10:20 AM CORRECTIONAL PROGRAM SPECIALIST Narrative PATHOLOGY [facility] - 06/22/2024 1:41 PM CORRECTIONAL PROGRAM SPECIALIST [facility] Department of Pathology [address] [place] [address] Note to Patients: This report may contain [...] 1940 (Age: 84) Gender: M Address: [address] [place] [address] Hospital #: [id number] Service: Surgery Location: Patient Type: [facility] OUTPATIENT Taken: 06/21/2024 Received: 06/21/2024 Accessioned: [...] for gross examination only. AMARILIS White, PA ([facility]) Microscopic slide review and interpretation for this case was performed at [facility], Department of Surgical Pathology, [address] [facility], [place] [id number], [address] # [id number] Georges Wallis MD LAB PATHOLOGY ORDERABLES Final Result PATHOLOGY [facility] * UT AN ELECTIVE SUPRAGLOTTIC AIRWAY, UT AN PROCEDURE PLACEHOLDER (06/21/2024 10:19 AM CORRECTIONAL PROGRAM SPECIALIST) Narrative Deanna Lr CRNA - 06/21/2024 10:19 AM CORRECTIONAL PROGRAM SPECIALIST Deanna Lr CRNA 06/21/2024 10:20 AM Airway Patient location: OR Urgency: elective Indications for airway management: anesthesia Difficult airway: no Staff: Supervising provider: Kenneth Valenzuela MD Placed by: BULK FILLER: Deanna Lr CRNA Emergent airway documentation: Risks and benefits discussed: yes Consent obtained: yes Consent given by: patient Airway prep: Preoxygenated: yes Mask difficulty assessment: 0 - not attempted Spontaneous ventilation during airway: absent Sedation level during airway: deep Final airway details: Final airway type: supraglottic airway Final supraglottic airway: classic SGA size: 3 Cuff pressure: 2 cm H2O Number of attempts: 1no Kenneth Valenzuela MD ANESTHESIA ORDERABLES Final R esult from Last 3 Months Insurance MEDICARE [facility] MEDICARE [facility] TRADITIONAL MEDICARE [employer] MEDICARE SUPPLEMENT MEDICARE [facility] MEDICARE SUPPLEMENT Advance Directives For more information, please contact: [phone] Documents on File Type Date Recorded Patient Enchilada Maker Expl anation Power of Trucking Contractor 06/13/2024 9:34 AM * Full Code (Latest Code Status on File) Date Activated Date Inactivated Comments 12/24/2021 8:42 AM 12/24/2021 4:15 PM Care Teams Explosive Ordnance Disposal Technician Relationship Specialty Start Date End Date Neyda Ba NP [address] [facility] [address] [place] [address] PCP - General Nurse Practitioner 06/15/24 Ochoa Crow III, MD [address] [place] [address] Consulting Physician Rheumatology 04/09/17 Theresa Plasencia DPT [address] [place] [address] Physical Therapist Physical Therapy 11/23/20 Jneni Ochoa MD [address] [place] [address] Consulting Physician Rheumatology 11/26/21 Benito David III, MD PhD [address] [place] [address] Neurologist Neurology 11/26/21 Ez Ansari MD [address] [place] [address] Consulting Physician Ophthalmology 11/26/21 Jevon Mohr MD [address] [facility] [address] [place] [address] Aviation Program Manager Cardiology 11/26/21 Nehal Price MD [address] [place] [address] Consulting Physician Pulmonary Disease 06/15/24
--- OUTSIDE RECORDS SUMMARY | 2024-09-13 13:22 | XMS_ITS | Encounter Summary ---
Author Organization [facility] Healthcare Address [address] [place] [address] Care Team Providers Care Pickling Tank Operator Name Role Phone Jaime Buck MD Primary Care Provider [phone] Tristin HSU MD, Ochoa Maddox Unavailable [phone] Janet Meier MD Unavailable [phone] Peewee Dalton FORENSIC ACCOUNTANT Primary Care Provider [phone] Jessica Melendez MANDATE RETAIL SERVICE MERCHANDISER Unavailable [phone] Theresa Plasencia DPT Unavailable [phone] Dawna Lara MANDATE RETAIL SERVICE MERCHANDISER Unavailable [phone] Jenni Ochoa MD Unavailable [phone] Joann HSU MD PhD, Benito Palafox Unavailable Ez Ansari MD Unavailable [phone] Jevon Mohr MD Unavailable [phone] Vipul Palomo MD Primary Care Provider [phone] Neyda Ba FORENSIC ACCOUNTANT Primary Care Provider [phone] Nehal Price MD Unavailable [phone] Encounter Details Date Type Department Care Team (Late st Contact Info) Description 08/25/2018 Telephone [facility] Radiology [address] [place] [address] Kustra, Ella Zina, RN Social [...] on file Legal Sex Male 7:30 PM GOLD RECLAIMER Gender Identity Not on file Sexual Orientation Not on file documented as of this encounter Plan of Treatment Not on file documented as of this encounter Visit Diagnoses Not on filedocumented in this encounter Care Teams Pickling Tank Operator Relationship Specialty Start Date End Date Jaime Buck MD [address] [place] [address] PCP - General 08/08/16 05/21/20 Peewee Dalton NP [address] [facility] 1 [facility] 1 [place] [address] PCP - General Nurse Practitioner 05/22/20 07/20/23 Vipul Palomo MD [facility] [address] [place] [address] PCP - General Family Practice 07/21/23 06/14/24 Neyda Ba NP [address] [facility] 1 [facility] 1 [place] [address] PCP - General Nurse Practitioner 06/15/24 Ochoa Crow III, MD [address] [facility] [address] [place] [address] Consulting Physician Rheumatology 04/09/17 Janet Meier MD [address] [place] [address] Referring Physician Pulmonary Disease 05/12/18 06/14/24 Jessica Melendez, MANDATE RETAIL SERVICE MERCHANDISER [address] [facility] [address] [place] [address] Speech Language Pathologist Speech Therapy 10/25/20 12/17/20 Theresa Plasencia, DPT [address] [facility] [address] [place] [address] Physical Therapist Physical Therapy 11/23/20 Dawna Lara, MANDATE RETAIL SERVICE MERCHANDISER [address] [facility] [address] [place] [address] Speech Language Pathologist Speech Therapy 12/18/20 02/18/21 Jenni Ochoa MD [address] [facility] [address] [place] [address] Consulting Physician Rheumatology 11/26/21 Benito David III, MD PhD [address] [facility] [address] [place] [address] Neurologist Neurology 11/26/21 Ez Ansari MD [address] [place] [address] Consulting Physician Ophthalmology 11/26/21 Jevon Mohr MD [address] [facility] [address] [place] [address] Television Director Cardiology 11/26/21 Nehal Price MD [address] [place] [address] Consulting Physician Pulmonary Disease 06/15/24 documented as of this encounter
--- OUTSIDE RECORDS SUMMARY | 2024-09-13 13:22 | XMS_ITS | Encounter Summary ---
Author Organization [facility] Address [address] [place] [address] Phone Care Team Providers Care U.S. Revenue Officer Name Role Phone Jaime Buck MD Primary Care Provider [phone] Carlo Martinez DO Unavailable [phone] Reason for Visit * Reason Comments Medication Refill Encounter Details Date Type Department Care Team (Late st Contact Info) Description 09/05/2020 Refill [facility] - Neurology - [place] [address] [place] [address] Hitesh Enciso MD [address] [place] [address] Medication Refill Social History Tobacco [...] neuralgia documented in this encounter Care Teams U.S. Revenue Officer Relationship Specialty Start Date End Date Jaime Buck MD [address] [place] [address] PCP - General Family Medicine 03/29/15 Carlo Martinez DO [address] [place] [address] Gastroenterology 03/29/15 documented as of this encounter
--- OUTSIDE RECORDS SUMMARY | 2024-09-13 13:22 | XMS_ITS | Encounter Summary ---
Author Organization [facility] Address [address] [place] [address] Phone Care Team Providers Care Automotive General Sales Manager Name Role Phone Jaime Buck MD Primary Care Provider [phone] Carlo Martinez DO Unavailable [phone] Reason for Visit * Reason Comments Medication Refill Encounter Details Date Type Department Care Team (Late st Contact Info) Description 07/02/2020 Refill [facility] - Neurology - [place] [address] [place] [address] Hitesh Enciso MD [address] [place] [address] Medication Refill Social History Tobacco [...] on filedocumented in this encounter Care Teams Automotive General Sales Manager Relationship Specialty Start Date End Date Jaime Buck MD [address] [place] [address] PCP - General Family Medicine 03/29/15 Carlo Martinez DO [address] [place] [address] Gastroenterology 03/29/15 documented as of this encounter
--- OUTSIDE RECORDS SUMMARY | 2024-09-13 13:22 | XMS_ITS | Clinical Summary ---
Author Organization [facility] [address] Address [address] [place] [address] Care Team Providers Care Supervisor Special Effects Name Role Phone Tristin HSU MD, Ochoa Maddox Unavailable Theresa Plasencia DPT Unavailable [phone] Jenni Ochoa MD Unavailable [phone] Joann HSU MD PhD, Benito Palafox Unavailable Ez Ansari MD Unavailable Jevon Mohr MD Unavailable Neyda Ba NP Primary Care Provider Nehal Price MD Unavailable [phone] Allergies Active Allergy Reactions Criticality Noted Date [...] 1 tablet (75 mcg total) by mouth speech therapist early intervention before breakfast 3 9 Active hydrOXYchloroQ UINE [...] (12/24/2021): Added automatically from request for surgery [id number] Abnormal CT scan, gastrointestinal tract 022 Overview (12/18/2021): Added automatically from request for surgery [id number] Diplopia 08/28/2021 Bilateral lower extremity edema 10/26/2020 [...] he has had a swallow study with PROVIDER RELATIONS CONSULTANT in 2020. We have discussed another swallow [...] for RBD, if needed. Follow-up with your administrative resident. We discussed evaluation with Sleep Medicine, if desired. We discussed follow-up with Neuro-Ophthalmology, Dr. Montero, if needed. Return to [...] he has had a swallow study with PROVIDER RELATIONS CONSULTANT in 2020. We discussed another swallow evaluation, but they prefer to hold off. Diplopia has extensively evaluated by Neuro-Ophtalmology (Dr. Montero), and is suspected to be PD-related. I recommend the following: Continue carbidopa/levodopa. Okay to take extra tab before weeSpring games. Cut back ropinirole from 6 tabs [...] wonder if this is related to adverse PUBLIC HEALTH MICROBIOLOGIST effects of these medications. He can try [...] he has had a swallow study with PROVIDER RELATIONS CONSULTANT in 2020. We discussed another swallow evaluation, [...] carbidopa/levodopa. Okay to take extra tab before weeSpring games. Continue ropinirole. Continue gabapentin. We discussed [...] with applesauce, pudding or yogurt; or dissolving chu-zuqm-fbtkzt pills in OJ or grape juice. No [...] sleepiness. Assessment & Plan (04/28/2022 3:53 PM BAR MANAGER): PD remains well controlled on his [...] twice a day 5. Follow-up with your Neuro-Billiard Table Repairer 6. Referral to Physical Therapy Assessment & [...] RF, CCP neg 02/24 Rheumatoid arthritis of [facility] hospit[facility] sites without rheumatoid factor 02/27/2017 Overview [...] related to a rheumatological cause. Has seen steel turner and copy writer for this issue. Assessment & Plan (12/31/2017 [...] inhaler prn. Advised to follow up with administrative resident. Urticaria, unspecified 08/21/2016 Erectile dysfunction due to [...] Description 08/26/2024 4:30 PM CDT Office Visit [facility] Movement Disorders [address] 7th [place] [address] Benito David III, MD PhD Parkinson's disease without dyskinesia or fluctuating manifestations (HCC) (Primary Dx); Glossopharyngeal neuralgia; Restless legs syndrome 08/15/2024 9:45 AM CDT Office Visit [facility] Medical [facility] Hand Surgery [facility] [employer] [facility] [address] [place] [phone] Georges Wallis MD Pain of finger of left hand (Primary Dx) 08/11/2024 Results Follow-Up [facility] Cardiology [address] [place] [address] Jevon Mohr MD Bilateral lower extremity edema 08/01/2024 Telephone [facility] Cardiology [address] [place] [address] Jevon Mohr MD 07/18/2024 9:15 AM CDT Office Visit [facility] Hand Surgery [facility] [employer] [address] [place] [phone] Georges Wallis MD Pain of finger of left hand (Primary Dx) 07/15/[address] [facility] Medical [facility] Hand Surgery [address] [place] [address] [place] [phone] Georges Wallis MD 07/04/2024 10:45 AM BAR MANAGER Office Visit [facility] Hand Surgery [address] [place] [address] [place] [phone] Harriet Jacobs, ABHISHEK Pain of finger of left hand (Primary Dx); Acute osteomyelitis of phalanx of hand, left (HCC) 06/30/2024 1:00 PM BAR MANAGER Office Visit [facility] Medical [facility] Cardiology [address] [facility] [address] [place] [phone] Jevon Mohr MD Coronary artery disease involving [place] coronary artery of [place] heart without angina pectoris (Primary Dx); Essential hypertension; Hyperlipidemia LDL goal <70; MADDIE (obstructive sleep apnea) 06/27/2024 8:30 AM BAR MANAGER Office Visit [facility] Hand Surgery [address] [place] [address] [place] [phone] Harriet Jacobs, ABHISHEK Pain of finger of left hand (Primary Dx) 06/21/2024 10:01 AM BAR MANAGER Anesthesia Event [facility] OR [address] [place] [address] Kenneth Valenzuela MD Lee, Walter, MD 06/21/2024 10:00 AM BAR MANAGER - 06/21/2024 10:30 AM BAR MANAGER Surgery [facility] OR [address] [place] [address] Georges Wallis MD 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 [address] [facility] [address] [place] [phone] Georges Wallis MD from Last 3 Months Immunizations Immunization Administration [...] arter y disease; Heart attack Father Guillermo [place]; Cause of De ath: [place] Stomach cancer Mother Lilliian cancer, gastr ic; [...] on file Legal Sex Male 7:30 PM BAR MANAGER Gender Identity Not on file Sexual Orientation Not on file Obstetrics History Last Filed Vital Signs Vital Sign Reading Time Taken Comments Blood Pressure 131/69 08/26/2024 3:57 PM CDT Pulse 63 08/26/2024 3:57 PM CDT Temperature 36.1 C (97 F) 06/21/2024 11:15 AM BAR MANAGER Respiratory Rate 18 06/21/2024 11:50 AM BAR MANAGER Oxygen Saturation 95% 06/30/2024 1:07 PM BAR MANAGER Inhaled Oxygen Concentration - - Weight [...] edema SURGICAL PATHOLOGY Routine 06/21/2024 10:20 AM BAR MANAGER Acute osteomyelitis of phalanx of hand, left (HCC) ME AN PROCEDURE PLACEHOLDER Routine 06/21/2024 10:19 AM BAR MANAGER ME AN ELECTIVE SUPRAGLOTTIC AIRWAY Routine 06/21/2024 10:19 AM BAR MANAGER AMPUTATION FINGER 06/21/2024 10:06 AM BAR MANAGER Acute osteomyelitis of phalanx of hand, [...] Jevon Mohr MD LAB BLOOD ORDERABLES Baylee jones Result ELZBIETA Duarte [address] [place] [address] * Surgical pathology (06/21/2024 10:20 AM BAR MANAGER) Tissue specimen (specimen) (Amputation non-tramatic) 06/21/2024 10:20 AM BAR MANAGER Narrative PATHOLOGY [facility] - 06/22/2024 1:41 PM BAR MANAGER [facility] Department of Pathology [address] [place] [address] Note to Patients: This report may contain [...] 1940 (Age: 84) Gender: M Address: [address] [place] [address] Hospital #: [id number] Service: Surgery Location: Patient Type: [facility] OUTPATIENT Taken: 06/21/2024 Received: 06/21/2024 [...] for gross examination only. AMARILIS White, PA ([facility]) Microscopic slide review and interpretation for this case was performed at [facility], Department of Surgical Pathology, [address] [facility], [place] [id number], [place] [address] CLIA # [id number] Georges Wallis MD LAB PATHOLOGY ORDERABLES Final Result PATHOLOGY MB * ME AN ELECTIVE SUPRAGLOTTIC AIRWAY, ME AN PROCEDURE PLACEHOLDER (06/21/2024 10:19 AM BAR MANAGER) Deanna Servin CRNA - 06/21/2024 10:19 AM BAR MANAGER Deanna Lr CRNA 06/21/2024 10:20 AM Airway Patient location: OR Urgency: elective Indications for airway management: anesthesia Difficult airway: no Staff: Supervising provider: Kenneth Valenzuela MD Placed by: ASTROBIOLOGIST: Deanna Lr CRNA Emergent airway documentation: Risks [...] Last 3 Months Insurance MEDICARE [facility] MEDICARE [facility]IC[facility] [employer] MEDICARE SUPPLEMENT MEDICARE [facility] Address: [address] [address] [place] [address] [facility] MEDICARE SUPPLEMENT Advance Directives For more information, please contact: [phone] Documents on File Type Date Recorded Patient Promotions Team Leader Expl anation Power of Warehouse Stock Clerk 06/13/2024 9:34 AM * Full Code (Latest Code Status on File) Date Activated Date Inactivated Comments 12/24/2021 8:42 AM 12/24/2021 4:15 PM Care Teams Supervisor Special Effects Relationship Specialty Start Date End Date Neyda Ba NP [address] [place] [address] PCP - General Nurse Practitioner 06/15/24 Ochoa Crow III, MD [address] [place] [address] Consulting Physician Rheumatology 04/09/17 Theresa Plasencia DPT [address] [place] [address] Physical Therapist Physical Therapy 11/23/20 Jenni Ochoa MD [address] [place] [address] Consulting Physician Rheumatology 11/26/21 Benito David III, MD PhD [address] [place] [address] Neurologist Neurology 11/26/21 Ez Ansari MD [address] [place] [address] Consulting Physician Ophthalmology 11/26/21 Jevon Mohr MD [address] [facility] [address] [place] [address] Clinical Cytogeneticist Cardiology 11/26/21 Nehal Price MD [address] [place] [address] Consulting Physician Pulmonary Disease 06/15/24
--- OUTSIDE RECORDS SUMMARY | 2024-09-13 13:22 | XMS_ITS | Continuity of Care Document ---
Author Organization [facility] Address [id number] [place] [address] [place] [address] Phone Care Team Providers Care Applications Engineer Manufacturing Name Role Phone Will Elias Unavailable Unavailable [...] Copied on Encounter Office/outpat ient Visit, [facility], [address] [place] [address] [address], [place], [id number], [place] tel:[phone] [facility] No Information 5-201 0 Krishnasamy Will. [address] [facility] [address], [place], [place], [facility], [place]. tel:[phone] [facility], [address] [place] [address] [address], [place], [id number], [place] tel:[phone] [facility] No Information 2-200 9 Krishnasamy Will. [address] [facility] [address], [place], [address], [place]. tel:[phone] Referring Provider: Will garcía [address] [facility], [place], [place], [facility]. tel:[phone] Office/outpat ient Visit, [facility], [address] [place] [address] [address], [place], [id number], tel:[phone] [facility] No Information Jan-0 3-200 9 Krishnasamy Will. [address] [facility] [address], [place], [place], [facility], . tel:[phone] Referring Provider: Carlo Blum, [address] [place] [address] [address], [place], [place], [facility]. tel:[phone] Office/outpat ient Visit, [facility], [address] [place] [address] [address], [place], [id number], tel:[phone] [facility] No Information [address] Carlo. [address] [place] [address] , [address], [place], [place], [facility], . tel:[phone] [facility], [address] [place], [place] [address], [address], [place], [id number], tel:[phone] [facility] No Information 9-[address] [facility] [address], [place], [place], [facility], . tel:[phone] Family History Family Member Type Diagnosis Age At Onset No Information Payers Payer name Insurance type Covered libertarian ID Authoriza tion(s) Medicare [facility] [place] [id number] [employer] [place] [id number] Social History Type Description Quantity Date Captured [...]
--- OUTSIDE RECORDS SUMMARY | 2024-09-13 13:22 | XMS_ITS | Encounter Summary ---
Author Organization [facility] Address [address] [place] [address] Phone Care Team Providers Care Linen Manager Name Role Phone Jaime Buck MD Primary Care Provider [phone] Carlo Martinez DO Unavailable [phone] Reason for Visit * Reason Comments Medication Refill Encounter Details Date Type Department Care Team (Late st Contact Info) Description 08/14/2020 Refill [facility] - Neurology - [place] [address] [place] [address] Hitesh Enciso MD [address] [place] [address] Medication Refill Social History Tobacco [...] on filedocumented in this encounter Care Teams Linen Manager Relationship Specialty Start Date End Date Jaime Buck MD [address] [place] [address] PCP - General Family Medicine 03/29/15 Carlo Martinez DO [address] [place] [address] Gastroenterology 03/29/15 documented as of this encounter
--- OUTSIDE RECORDS SUMMARY | 2024-09-13 13:22 | XMS_ITS | Encounter Summary ---
Author Organization [facility] Address [address] [place] [address] Phone Care Team Providers Care Tank Farm Operator Name Role Phone Jaime Buck MD Primary Care Provider [phone] Carlo Martinez DO Unavailable [phone] Reason for Visit * Reason Comments Medication Refill Encounter Details Date Type Department Care Team (Late st Contact Info) Description 01/07/2021 Refill [facility] [address] [place] [address] Hitesh Enciso MD [address] [place] [phone] Medication Refill Social History Tobacco Use Types [...] on filedocumented in this encounter Care Teams Tank Farm Operator Relationship Specialty Start Date End Date Jaime Buck MD [address] [place] [address] PCP - General Family Medicine 03/29/15 Carlo Martinez DO [address] [place] [address] Gastroenterology 03/29/15 documented as of this encounter
--- OUTSIDE RECORDS SUMMARY | 2024-09-13 13:22 | XMS_ITS | Encounter Summary ---
Author Organization [facility] Address [address] [place] [address] Phone Care Team Providers Care Able Bodied Seaman Name Role Phone Jaime Buck MD Primary Care Provider [phone] Carlo Martinez DO Unavailable [phone] Reason for Visit * Reason Comments Medication Refill Encounter Details Date Type Department Care Team (Late st Contact Info) Description 09/29/2020 Refill [facility] - Neurology - [place] [address] [place] [address] Hitesh Enciso MD [address] [place] [address] Medication Refill Social History Tobacco [...] on filedocumented in this encounter Care Teams Able Bodied Seaman Relationship Specialty Start Date End Date Jaime Buck MD [address] [place] [address] PCP - General Family Medicine 03/29/15 Carlo Martinez DO [address] [place] [address] Gastroenterology 03/29/15 documented as of this encounter
--- NOTE | 2024-09-13 13:25 | ECG_ITS ---
Test Date: 2024-09-13 13:35:59 Measurements Intervals [place] Rate: 65 P: -28 MT: 171 QRS: -52 QRSD: 144 T: 67 QT: 416 QTc: 435 Interpretive Statements SINUS RHYTHM INTRAVENTRICULAR CONDUCTION DELAY [130+ ms QRS DURATION] BAELINE ARTIFACT LIMITS INTERPRETATION Compared to ECG 09/01/2024 12:30:11 Sinus bradycardia no longer present Electronically Signed On 09-13-2024 14:37:14 CDT by James Díaz M.D.
--- NOTE | 2024-09-13 13:43 | ECG_ITS ---
Test Date: 2024-09-13 13:43:42 Measurements Intervals [place] Rate: 68 P: -16 DE: 208 QRS: -50 QRSD: 136 T: 69 QT: 408 QTc: 435 Interpretive Statements SINUS RHYTHM INTRAVENTRICULAR CONDUCTION DELAY [130+ ms QRS DURATION] SEPTAL MYOCARDIAL INFARCTION , PROBABLY OLD [40+ ms Q WAVE IN V1/V2] POSSIBLE LATERAL MYOCARDIAL INFARCTION , OF INDETERMINATE AGE [30 ms Q WAVE IN I/aVL/V5/V6] Compared to ECG 09/13/2024 13:35:59 Myocardial infarct finding now present Electronically Signed On 09-15-2024 14:09:53 CDT by Manju Jensen
[2024-09-13 13:45] LABS: Basophils Percent Auto 0.4 % (0.2-1.2); Eosinophils Absolute Auto 0.3 K/mm3 (0-0.3); Eosinophils Percent Auto 5.5 % (0-4.4); Hematocrit 38.2 % (42.0-52.0); Hemoglobin 12.1 g/dL (14.0-18.0); Immature Granulocyte Absolute 0.01 K/mm3 (0.00-0.031); Immature Granulocyte Percent A 0.2 % (0-0.5); Lymphocytes Absolute Auto 0.63 K/mm3 (0.9-3.2); Lymphocytes Percent Auto 13.9 % (18.3-44.2); Mean Corpuscular HGB Conc 31.7 g/dl (32-36); Mean Corpuscular Hemoglobin 32.3 pg (26-34); Mean Corpuscular Volume 101.9 fl (80-100); Mean Platelet Volume 10.8 fl (7.4-10.4); Monocytes Absolute Auto 0.6 K/mm3 (0.1-0.6); Monocytes Percent Auto 12.1 % (2.6-8.5); Neutrophils Absolute Auto 3.1 K/mm3 (1.3-6.7); Neutrophils Percent Auto 67.9 % (45.5-73.1); Platelet Count Result 156 k/mm3 (150-375); Red Blood Count 3.75 M/mm3 (4.6-6.20); Red Cell Distribution Width 13.1 % (11.5-14.5); White Blood Count 4.5 K/mm3 (4.5-10.0)
[2024-09-13 14:00] LABS: Alanine Aminotransferase 11 U/L (6-50); Albumin Level 4.4 g/dL (3.5-5.1); Alkaline Phosphatase 148 U/L (38-126); Anion Gap 7 mmol/L (4-12); Aspartate Amino Transferase 28 U/L (17-59); Bilirubin,Total 0.5 mg/dL (0.2-1.3); Blood Urea Nitrogen 28 mg/dL (9-20); Calcium 8.8 mg/dL (8.4-10.2); Carbon Dioxide 28 mmol/L (22-30); Chloride 102 mmol/L (98-107); Estimated CRCL calculation 45 ml/min; Estimated Glomerular Filt Rate > 60; Glucose 136 mg/dL (65-110); Potassium 4.5 mmol/L (3.4-5.0); Sodium 137 mmol/L (137-145)
[2024-09-13 14:08] LABS: Partial Thromboplastin Time 29.5 Seconds (22.3-36.8); Prothrombin Time 13.2 Seconds (11.1-14.7)
[2024-09-13 14:12] LABS: NT Pro B Type Natriuretic Pept 406 pg/mL (19.9-100); Troponin I < 0.012 ng/mL (0.000-0.034)
--- NOTE | 2024-09-13 14:16 | ED_ITS ---
HPI - SOB/Dyspnea General Chief Complaint: Shortness of Breath/Dyspnea Stated Complaint: Trouble swallowing-coughing x 4 days Time Seen by Provider: 09/13/24 14:02 History of Present Illness HPI Narrative: Pt presents with coughing worse when he lays flat and some mild SOB. Pt has history of Parkinson's and sometimes he is told that coughing could be choking or aspiration. Pt also has history of chf and copd. Pt has not been gaining weight or having increased fluid in LE. Pt denies fever. Related Data Home Medications ?Medication ?Instructions ?Recorded ?Confirmed ?Last Taken ?Type aspirin 81 mg tablet,delayed 81 mg PO QHS 03/23/19 09/07/24 1 Day Ago History release (Aspir-Low) ~03/06/24 tamsulosin 0.4 mg capsule 0.4 mg PO HS 04/24/20 09/07/24 1 Day Ago History ~03/06/24 gabapentin 300 mg capsule 300 mg PO QID 05/15/20 09/07/24 03/07/24 15:30 History nitroglycerin 0.4 mg sublingual 0.4 mg sublingual PRN PRN Chest 10/23/22 09/07/24 Unknown History tablet Pain finasteride 5 mg tablet 5 mg PO DAILY 02/01/24 09/07/24 03/07/24 08:30 History carbidopa 25 mg-levodopa 100 mg 2 tablet PO TID 07/20/24 09/07/24 Unknown History tablet bumetanide 1 mg tablet 2 mg PO DAILY 09/07/24 09/07/24 Unknown History cetirizine 10 mg tablet (Zyrtec) 10 mg PO DAILY PRN 09/07/24 09/07/24 Unknown History melatonin 5 mg capsule 18 mg PO QHS 09/07/24 09/07/24 Unknown History polyethylene glycol 3350 17 gram 17 g PO DAILY PRN 09/07/24 09/07/24 Unknown History oral powder packet (Miralax) roflumilast 0.3 % topical cream 1 applic topical DAILY 09/07/24 09/07/24 Unknown History (Zoryve) ropinirole 1 mg tablet 5 mg PO DAILY 09/07/24 09/07/24 Unknown History Allergies Allergy/AdvReac Type Severity Reaction Status Date / Time abatacept AdvReac Flushing Verified 09/13/24 13:17 Review of Systems 2 Review of Systems: All systems reviewed & are unremarkable except as noted in HPI and below [facility] Past Medical History Medical History BPH (benign prostatic hyperplasia) Overactive bladder Pneumonitis BPH (benign prostatic hyperplasia) Dementia due to Parkinson's disease Recurrent falls Parkinson disease Hypothyroidism Rheumatoid arthritis Gastroesophageal reflux disease Hiatal hernia with gastroesophageal reflux disease and esophagitis Barretts esophagus Dysphagia Hypertension Rheumatoid arthritis of unspecified site with involvement of other organs and systems Carpal tunnel syndrome on both sides Obstructive sleep apnea With sleep study in 2020 recommending BiPAP RLS (restless legs syndrome) Chronic obstructive pulmonary disease Mild emphysematous changes noted on CT scan 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 Arthritis CHF (congestive heart failure) Echo May 2020: Normal left ventricular systolic function EF 69%, moderate concentric left ventricular hypertrophy, mild left ventricular enlargement, paradoxical septal motion consistent with bundle branch block, diastolic dysfunction grade 1, technically difficult study Coronary artery disease Surgical History Surgical History History of dental buddhist Dental implants Status post open reduction with internal fixation of fracture Knee cap Hx of cholecystectomy Status post cataract extraction of both eyes with insertion of intraocular lens History of Osvaldo fundoplication History of tonsillectomy and adenoidectomy History of uvulopalatopharyngoplasty H/O eye surgery Left eye to correct double vision History of four vessel coronary artery bypass graft Family History Family History Father Acute myocardial infarction, Onset Age: 84 Family history of coronary artery disease, Onset Age: 84 Mother Carcinoma of colon, Onset Age: 64 Sibling Family history of coronary artery disease Carcinoma of colon Social History Social History Social History: The patient sold his house in moved in with his daughter after the patient's in 2019. He was 59 years prior to his 's . He ambulates with a walker and/or cane. He used to smoke 5 or 6 cigars a day but quit in 2014. He denies any alcohol use. 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 The patient and his raised 2 of her own children and also raise the patient's sister who was 30 years younger. They took custody of the patient's sister when she was 16 after his mother had . Code status: Full code (however he would not want to be on ventilator for long- term, have a tracheostomy or a feeding tube.) Healthcare power of blanking press operator: Daughter Smoking packs per day: 1 Smoking cigarettes per day: 20.0 Years smoked: 25 Smoking pack-years: 25.00 Smoking status: Former smoker Tobacco type: cigarettes and cigars Smoking end date: 05/11/14 Alcohol intake: never Substance use: never Substance use type: does not use Do You Feel Safe in your Home?: Yes Lack of Transportation: No Lack of Food: Never True Current Housing: I Have Housing Concerned About Future Housing: No Difficulty Paying Gas/Electric Bills: No Difficulty Paying for Meds: No Currently Unemployed: No Education: High School Diploma/GED Difficulty w/ Childcare or Family Care: No Living arrangements: with family Additional living arrangements comments: WITH DAUGHTER Occupation/Education: retired Gender identity (if verbalized by the patient): Male Sexual Orientation (if Verbalized by the Patient): Straight or Heterosexual Spiritual care concerns: No Exam 2 Const: General: healthy appearing and no acute distress Nutritional Appearance: well nourished Orientation/consciousness: patient oriented x3 Limitations: no limitations HENMT: Head: normal to inspection Eyes: EOM: EOMs intact bilaterally Neck: Neck: normal visual inspection Chest: Chest palpation & inspection: normal inspection of the chest Resp: Effort & Inspection: normal respiratory effort Auscultation: crackles Cardio: Rate: regular rate Rhythm: regular rhythm GI: GI Palp: Yes Soft to palpation and No Tenderness to palpation present (GI) Auscultation: normal bowel sounds Skin: General skin exam: normal color Wounds: no wounds Neuro: General: patient oriented x3, moves all extremities, no meningeal signs and no focal motor deficits Speech: normal speech Extrem: General: edema bilateral (trace) Psych: Mental Status: mental status grossly normal Affect: normal affect Attitude: cooperative Course Vital Signs Vital signs: Vital Signs Temperature 98.2 F 09/13/24 13:22 Pulse Rate 65 09/13/24 13:22 Respiratory Rate 16 09/13/24 13:22 Blood Pressure 127/58 L 09/13/24 13:22 Pulse Oximetry 97 09/13/24 13:22 Oxygen Delivery Room Air 09/13/24 13:22 Temperature 98.2 F 09/13/24 13:22 Pulse Rate 63 09/13/24 15:50 Respiratory Rate 19 09/13/24 15:50 Blood Pressure 138/69 09/13/24 15:50 Pulse Oximetry 97 09/13/24 15:50 Oxygen Delivery Room Air 09/13/24 13:22 MDM - SOB/Dyspnea MDM Narrative Medical decision making narrative: Pt presents with coughing when lying flat. Pt has parikinson's so is risk for aspiration pt also has copd and chf so will need labs ekg cxr. will give neb as well. Pt feels better after neb, cxr and labs unremarkable, copd exacerbation or bronchitis. home on z pack and prednisone. Lab Data 09/13/24 13:33 09/13/24 13:35 Labs: Lab Results 09/13/24 09/13/24 Range/Units 13:33 13:35 WBC 4.5 (4.5-10.0) K/mm3 RBC 3.75 L (4.6-6.20) M/mm3 Hgb 12.1 L (14.0-18.0) g/dL Hct 38.2 L (42.0-52.0) % MCV 101.9 H (80-100) fl MCH 32.3 (26-34) pg MCHC 31.7 L (32-36) g/dl RDW 13.1 (11.5-14.5) % Plt Count 156 (150-375) k/mm3 MPV 10.8 H (7.4-10.4) fl Immature Gran % (Auto) 0.2 (0-0.5) % Neut % (Auto) 67.9 (45.5-73.1) % Lymph % (Auto) 13.9 L (18.3-44.2) % [place] % (Auto) 12.1 H (2.6-8.5) % Eos % (Auto) 5.5 H (0-4.4) % Baso % (Auto) 0.4 (0.2-1.2) % Lymph # (Auto) 0.63 L (0.9-3.2) K/mm3 [place] # (Auto) 0.6 (0.1-0.6) K/mm3 Eos # (Auto) 0.3 (0-0.3) K/mm3 Baso # (Auto) 0.0 (0.0-0.1) K/mm3 Abs Immat Gran (auto) 0.01 (0.00-0.031) K/mm3 Absolute Neuts (auto) 3.1 (1.3-6.7) K/mm3 Absolute Nucleated RBC 0.000 (0.0-0.012) K/mm3 Nucleated RBC % 0.0 (0.0-0.2) % PT 13.2 (11.1-14.7) Seconds INR 1.0 APTT 29.5 (22.3-36.8) Seconds Sodium 137 (137-145) mmol/L Potassium 4.5 (3.4-5.0) mmol/L Chloride 102 (98-107) mmol/L Carbon Dioxide 28 (22-30) mmol/L Anion Gap 7 (4-12) mmol/L BUN 28 H (9-20) mg/dL Creatinine 0.99 (0.7-1.3) mg/dL Estim Creat Clear Calc 45 ml/min Estimated GFR > 60 (59 - ) Glucose 136 H (65-110) mg/dL Calcium 8.8 (8.4-10.2) mg/dL Total Bilirubin 0.5 (0.2-1.3) mg/dL AST 28 (17-59) U/L ALT 11 (6-50) U/L Alkaline Phosphatase 148 H (38-126) U/L Troponin I < 0.012 (0.000-0.034) ng/mL NT-Pro-B Natriuret Pep 406 H (19.9-100) pg/mL Total Protein 7.0 (6.3-8.2) g/dL Albumin 4.4 (3.5-5.1) g/dL ECG Data EKG #1: Interpretation: nsr alvin 68, iv conduction delay, no acute st or t wave changes Discharge Plan Discharge Clinical Impression: Chronic obstructive pulmonary disease Qualifiers: COPD type: unspecified COPD Qualified Code(s): J44.9 - Chronic obstructive pulmonary disease, unspecified Patient Disposition: Home Condition: Stable Instructions: Antibiotic Form, Acute Bronchitis (ED), COPD (Chronic Obstructive Pulmonary Disease) (DC) Patient Language: Citizen Of [place] Prescriptions: New prednisone 50 mg tablet 50 mg PO DAILY Qty: 5 0RF azithromycin [Zithromax Z-Chiki] 250 mg tablet See Rx Instructions .ROUTE .COMPLEX Qty: 6 0RF Rx Instructions: For 250 mg dose pack: take 500 mg today (day 1), then 250 mg for 4 days (days 2-5) No Action carbidopa-levodopa 25-100 mg tablet 2 tablet PO TID ropinirole 1 mg tablet 5 mg PO DAILY gabapentin 300 mg capsule 300 mg PO QID tamsulosin 0.4 mg capsule 0.4 mg PO HS hydroxychloroquine [Plaquenil] 200 mg tablet 400 mg PO DAILY Qty: 180 1RF finasteride 5 mg tablet 5 mg PO DAILY melatonin 5 mg capsule 18 mg PO QHS aspirin [Aspir-Low] 81 mg tablet,delayed release (DR/EC) 81 mg PO QHS bumetanide 1 mg tablet 2 mg PO DAILY Zoryve 0.3 % cream 1 applic topical DAILY cetirizine [Zyrtec] 10 mg tablet 10 mg PO DAILY PRN doxycycline hyclate 100 mg capsule 100 mg PO BID 14 Days Qty: 28 0RF nitroglycerin 0.4 mg tablet, sublingual 0.4 mg sublingual PRN PRN (Reason: Chest Pain) cyanocobalamin (vitamin B-12) [Vitamin B-12] 1,000 mcg Tablet 1,000 mcg PO QAM Qty: 30 0RF polyethylene glycol 3350 [Miralax] 17 gram powder in packet 17 g PO DAILY PRN carbamazepine 200 mg tablet 200 mg PO Q12H Qty: 60 1RF levothyroxine 75 mcg tablet 75 mcg PO DAILY Qty: 90 1RF fluticasone propion-salmeterol 113-14 mcg/actuation aerosol powdr breath activated 1 inh inhalation BID Qty: 1 3RF Rx Instructions: Rinse mouth and spit after each use pantoprazole 40 mg tablet,delayed release (DR/EC) 40 mg PO BID 90 Days Qty: 180 3RF albuterol sulfate 90 mcg/actuation HFA aerosol inhaler 1 - 2 puff inhalation Q4-6H PRN (Reason: shortness of breath or wheezing) Qty: 8.5 2RF famotidine 20 mg tablet 20 mg PO BID 90 Days Qty: 180 3RF Follow-up/Referrals: Neyda Ba APRN [Primary Care Provider] -
[2024-09-13] MEDS: IPRATROPIUM 0.5 MG/ALBUTEROL SULFATE 2.5 MG AMPUL.NEB 3 ML INHALATION (14:25)
[2024-09-13 14:26] VITALS: PULSE 60; RESP 20
[2024-09-13 14:32] VITALS: PULSE 61; RESP 29
--- OUTSIDE RECORDS SUMMARY | 2024-09-13 14:40 | XMS_ITS | Encounter Summary ---
Author Organization [facility] Healthcare Address [address] [place] [address] Care Team Providers Care Waste Chopper Name Role Phone Jaime Buck MD Primary Care Provider [phone] Tristin HSU MD, Ochoa Maddox Unavailable [phone] Janet Meier MD Unavailable [phone] Peewee Dalton SERVICENOW ADMINISTRATOR DEVELOPER Primary Care Provider [phone] Jessica Melendez CERTIFIED REGISTERED DENTAL ASSISTANT Unavailable [phone] Theresa Plasencia DPT Unavailable [phone] Dawna Lara CERTIFIED REGISTERED DENTAL ASSISTANT Unavailable [phone] Jenni Ochoa MD Unavailable [phone] Joann HSU MD PhD, Benito Palafox Unavailable Ez Ansari MD Unavailable [phone] Jevon Mohr MD Unavailable [phone] Vipul Palomo MD Primary Care Provider [phone] Neyda Ba SERVICENOW ADMINISTRATOR DEVELOPER Primary Care Provider [phone] Nehal Price MD Unavailable [phone] Encounter Details Date Type Department Care Team (Late st Contact Info) Description 08/25/2018 Telephone [facility] Radiology [address] [place] [address] Kustra, Ella Zina, RN Social [...] on file Legal Sex Male 7:30 PM CHAPTER RELATIONS ADMINISTRATOR Gender Identity Not on file Sexual Orientation Not on file documented as of this encounter Plan of Treatment Not on file documented as of this encounter Visit Diagnoses Not on filedocumented in this encounter Care Teams Waste Chopper Relationship Specialty Start Date End Date Jaime Buck MD [address] [place] [address] PCP - General 08/08/16 05/21/20 Peewee Dalton NP [address] [facility] 1 [facility] 1 [place] [address] PCP - General Nurse Practitioner 05/22/20 07/20/23 Vipul Palomo MD [facility] [address] [place] [address] PCP - General Family Practice 07/21/23 06/14/24 Neyda Ba NP [address] [facility] 1 [facility] 1 [place] [address] PCP - General Nurse Practitioner 06/15/24 Ochoa Crow III, MD [address] [facility] [address] [place] [address] Consulting Physician Rheumatology 04/09/17 Janet Meier MD [address] [place] [address] Referring Physician Pulmonary Disease 05/12/18 06/14/24 Jessica Melendez, CERTIFIED REGISTERED DENTAL ASSISTANT [address] [facility] [address] [place] [address] Speech Language Pathologist Speech Therapy 10/25/20 12/17/20 Theresa Plasencia, DPT [address] [facility] [address] [place] [address] Physical Therapist Physical Therapy 11/23/20 Dawna Lara, CERTIFIED REGISTERED DENTAL ASSISTANT [address] [facility] [address] [place] [address] Speech Language Pathologist Speech Therapy 12/18/20 02/18/21 Jenni Ochoa MD [address] [facility] [address] [place] [address] Consulting Physician Rheumatology 11/26/21 Benito David III, MD PhD [address] [facility] [address] [place] [address] Neurologist Neurology 11/26/21 Ez Ansari MD [address] [place] [address] Consulting Physician Ophthalmology 11/26/21 Jevon Mohr MD [address] [facility] [address] [place] [address] [facility] [facility] Cardiology 11/26/21 Nehal Price MD [address] [place] [address] Consulting Physician Pulmonary Disease 06/15/24 documented as of this encounter
--- OUTSIDE RECORDS SUMMARY | 2024-09-13 14:40 | XMS_ITS | Encounter Summary ---
Author Organization [facility] Address [address] [place] [address] Phone Care Team Providers Care Supervisor Water Treatment Plant Name Role Phone Jaime Buck MD Primary Care Provider [phone] Carlo Martinez DO Unavailable [phone] Reason for Visit * Reason Comments Medication Refill Encounter Details Date Type Department Care Team (Late st Contact Info) Description 05/19/2021 Refill [facility] - Gastroenterology - [place] [address] [place] [address] Tashia Aguilar Pretty, PAC [address] [place] [address] Medication Refill Social History Tobacco Use Types [...] Deanna Lake RN - 05/21/2021 4:28 PM [facility] Medication refilled and signed per [facility] chronic medication standing order for pediatric and adult patients. [facility] * Telephone Encounter - Deanna Lake RN - 05/21/2021 4:21 PM [facility] Pharmacy requesting refill of: Requested Prescriptions Pending Prescriptions Disp Refills ??? famotidine (PEPCID) 20 MG Tablet [Pharmacy Med Name: FAMOTIDINE 20MG TABLETS] 180 Tablet 3 Sig: TAKE 1 TABLET BY MOUTH TWICE DAILY Last fill: 05/28/2020 Patients last OV with GI: telemedicine office visit on 05/28/2020 Next Office Visit with GI: None scheduled. Called patient, offered an appt. Patient scheduled 06/03/2021. [facility] documented in this encounter Plan of Treatment Not on file documented as of this encounter Visit Diagnoses Diagnosis Gastroesophageal reflux disease with esophagitis without hemorrhage documented in this encounter Care Teams Supervisor Water Treatment Plant Relationship Specialty Start Date End Date Jaime Buck MD [address] [place] [address] PCP - General Family Medicine 03/29/15 Carlo Martinez DO [address] [place] [address] Gastroenterology 03/29/15 documented as of this encounter
--- OUTSIDE RECORDS SUMMARY | 2024-09-13 14:40 | XMS_ITS | Encounter Summary ---
Author Organization [facility] Address [address] [place] [address] Phone Care Team Providers Care Financial Sales Associate Name Role Phone Jaime Buck MD Primary Care Provider [phone] Carlo Martinez DO Unavailable [phone] Reason for Visit * Reason Comments Medication Refill Encounter Details Date Type Department Care Team (Late st Contact Info) Description 01/07/2021 Refill [facility] - [facility] [address] [place] [address] Hitesh Enciso MD [address] [place] [id number] Medication Refill Social History Tobacco Use Types [...] on filedocumented in this encounter Care Teams Financial Sales Associate Relationship Specialty Start Date End Date Jaime Buck MD [address] [place] [address] PCP - General Family Medicine 03/29/15 Carlo Martinez DO [address] [place] [address] Gastroenterology 03/29/15 documented as of this encounter
--- OUTSIDE RECORDS SUMMARY | 2024-09-13 14:40 | XMS_ITS | Referral Summary ---
Author Organization [facility] [address] Address [address] [place] [address] Care Team Providers Care Beam Dyer Operator Name Role Phone Tristin HSU MD, Ochoa Maddox Unavailable [phone] Theresa Plasencia DPT Unavailable [phone] Jenni Ochoa MD Unavailable [phone] Joann HSU MD PhD, Benito Palafox Unavailable Ez Ansari MD Unavailable Jevon Mohr MD Unavailable Neyda Ba NP Primary Care Provider Nehal Price MD Unavailable Encounters Date Type Department Care Team Description 08/26/2024 4:30 PM CDT Office Visit [facility] Movement Disorders [address] [facility] 7th [place] [address] Benito David III, MD PhD Parkinson's disease without dyskinesia or fluctuating manifestations (HCC) (Primary Dx); Glossopharyngeal neuralgia; Restless legs syndrome 08/15/2024 9:45 AM CDT Office Visit [facility] Medical [facility] Hand Surgery [facility] [address] [place] [phone] Georges Wallis MD Pain of finger of left hand (Primary Dx) 08/11/2024 Results Follow-Up [facility] Cardiology [address] [facility] [address] [place] [phone] Jevon Mohr MD Bilateral lower extremity edema 08/01/2024 Telephone [facility] Cardiology [address] [place] [address] [place] [phone] Jevon Mohr MD 07/18/2024 9:15 AM CDT Office Visit [facility] Hand Surgery [address] [place] [address] [place] [phone] Georges Wallis MD Pain of finger of left hand (Primary Dx) 07/15/2024 Orders Only [facility] Hand Surgery [address] [place] [address] [place] [phone] Georges Wallis MD 07/04/2024 10:45 AM CLAIM ADJUSTER Office Visit [facility] Hand Surgery [address] [place] [address] [place] [phone] Harriet Jacobs, ABHISHEK Pain of finger of left hand (Primary Dx); Acute osteomyelitis of phalanx of hand, left (HCC) 06/30/2024 1:00 PM CLAIM ADJUSTER Office Visit [facility] Cardiology [address] [place] [address] [place] [phone] Jevon Mohr MD Coronary artery disease involving torres martinez coronary artery of torres 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 angina pectoris (Primary Dx); Essential hypertension; Hyperlipidemia LDL goal <70; MADDIE (obstructive sleep apnea) 06/27/2024 8:30 AM CLAIM ADJUSTER Office Visit [facility] Hand Surgery [address] [place] [address] [place] [phone] Harriet Jacobs, GROUNDS/MAINTENANCE SPECIALIST Pain of finger of left hand (Primary Dx) 06/21/2024 10:00 AM CLAIM ADJUSTER - 06/21/2024 10:30 AM CLAIM ADJUSTER Surgery [facility] OR [address] [place] [address] Georges Wallis MD 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 06/21/2024 10:01 AM CLAIM ADJUSTER Anesthesia Event [facility] OR [address] [place] [address] Kenneth Valenzuela MD Lee, Walter, MD 06/21/2024 7:52 AM CLAIM ADJUSTER - 06/21/2024 12:10 PM CLAIM ADJUSTER Hospital Encounter [facility] [place] [address] [place] [address] Georges Wallis MD Acute osteomyelitis of phalanx of hand, left (HCC) [M86.142] (Primary Dx); Acute osteomyelitis of phalanx of hand, left (HCC) Discharge Disposition: Discharge to home or self care 06/17/2024 Telephone [facility] Medical Group Orthopedics and Sports Medicine [address] [phone] Georges Wallis MD from Last [...] 1 tablet (75 mcg total) by mouth early childhood worker before breakfast 3 9 Active hydrOXYchloroQ UINE [...] (12/24/2021): Added automatically from request for surgery [id number] Abnormal CT scan, gastrointestinal tract 022 Overview (12/18/2021): Added automatically from request for surgery [id number] Diplopia 08/28/2021 Bilateral lower extremity edema 10/26/2020 [...] he has had a swallow study with HEAD PACKAGER in 2020. We have discussed another swallow [...] for RBD, if needed. Follow-up with your supervisor hospitality house. We discussed evaluation with [facility], [...] he has had a swallow study with HEAD PACKAGER in 2020. We discussed another swallow evaluation, but they prefer to hold off. Diplopia has extensively evaluated by Neuro-Ophtalmology (Dr. Montero), and is suspected to be PD-related. I recommend the following: Continue carbidopa/levodopa. Okay to take extra tab before [employer] games. Cut back ropinirole from 6 tabs [...] wonder if this is related to adverse ASSEMBLY TECHNICIAN effects of these medications. He can try [...] he has had a swallow study with HEAD PACKAGER in 2020. We discussed another swallow evaluation, [...] with applesauce, pudding or yogurt; or dissolving [id number] pills in OJ or grape juice. No [...] sleepiness. Assessment & Plan (04/28/2022 3:53 PM CLAIM ADJUSTER): PD remains well controlled on his current [...] twice a day 5. Follow-up with your Neuro-Medical Technician 6. Referral to Physical Therapy Assessment & [...] related to a rheumatological cause. Has seen medical office specialist and tread booker for this issue. Assessment & Plan (12/31/2017 [...] in sister. Coronary artery disease invo lving torres martinez coronary artery of torres 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 angina pectoris 12/19/2016 Essential hypertension 12/19/2016 MOSHER (dyspnea on exertion) 12/19/2016 Assessment & Plan (03/05/2018 12:49 PM CDT): Patient having shortness of breath with walking and talking. Has stopped Ellipta inhaler, but still has albuterol inhaler prn. Advised to follow up with supervisor hospitality house. Urticaria, unspecified 08/21/2016 Erectile dysfunction due to [...] on file Legal Sex Male 7:30 PM CLAIM ADJUSTER Gender Identity Not on file Sexual Orientation Not on file Last Filed Vital Signs Vital Sign Reading Time Taken Comments Blood Pressure 131/69 08/26/2024 3:57 PM CDT Pulse 63 08/26/2024 3:57 PM CDT Temperature 36.1 C (97 F) 06/21/2024 11:15 AM CLAIM ADJUSTER Respiratory Rate 18 06/21/2024 11:50 AM CLAIM ADJUSTER Oxygen Saturation 95% 06/30/2024 1:07 PM CLAIM ADJUSTER Inhaled Oxygen Concentration - - Weight 83.5 [...] edema SURGICAL PATHOLOGY Routine 06/21/2024 10:20 AM CLAIM ADJUSTER Acute osteomyelitis of phalanx of hand, left (HCC) SD AN PROCEDURE PLACEHOLDER Routine 06/21/2024 10:19 AM CLAIM ADJUSTER SD AN ELECTIVE SUPRAGLOTTIC AIRWAY Routine 06/21/2024 10:19 AM CLAIM ADJUSTER AMPUTATION FINGER 06/21/2024 10:06 AM CLAIM ADJUSTER Acute osteomyelitis of phalanx of hand, left [...] BLOOD ORDERABLES Baylee l Result [facility] [address] [place] [address] * Surgical pathology (06/21/2024 10:20 AM CLAIM ADJUSTER) Tissue specimen (specimen) (Amputation non-tramatic) 06/21/2024 10:20 AM CLAIM ADJUSTER Narrative PATHOLOGY [facility] - 06/22/2024 1:41 PM CLAIM ADJUSTER [facility] Department of Pathology [address] [place] [address] Note to Patients: This report may contain [...] 1940 (Age: 84) Gender: M Address: [address] [place] [address] Hospital #: [id number] Service: Surgery Location: Patient Type: [facility] OUTPATIENT Taken: 06/21/2024 Received: 06/21/2024 Accessioned: 06/21/2024 [...] for gross examination only. AMARILIS White, PA ([facility]) Microscopic slide review and interpretation for this case was performed at [facility], Department of Surgical Pathology, [address] [facility], [place] [id number], [address] # [id number] Georges Wallis MD LAB PATHOLOGY ORDERABLES Final Result PATHOLOGY [facility] * SD AN ELECTIVE SUPRAGLOTTIC AIRWAY, SD AN PROCEDURE PLACEHOLDER (06/21/2024 10:19 AM CLAIM ADJUSTER) Narrative Deanna Lr CRNA - 06/21/2024 10:19 AM CLAIM ADJUSTER Deanna Lr CRNA 06/21/2024 10:20 AM Airway Patient location: OR Urgency: elective Indications for airway management: anesthesia Difficult airway: no Staff: Supervising provider: Kenneth Valenzuela MD Placed by: WAFER SLICER: Deanna Lr CRNA Emergent airway documentation: Risks [...] esult from Last 3 Months Insurance MEDICARE [facility] MEDICARE [facility] TRADITIONAL MEDICARE [employer] MEDICARE SUPPLEMENT MEDICARE [facility] MEDICARE SUPPLEMENT Advance Directives For more information, please contact: [phone] Documents on File Type Date Recorded Patient Net Application Support Specialist Expl anation Power of Pattern Wheel Maker 06/13/2024 9:34 AM * Full Code (Latest Code Status on File) Date Activated Date Inactivated Comments 12/24/2021 8:42 AM 12/24/2021 4:15 PM Care Teams Beam Dyer Operator Relationship Specialty Start Date End Date Neyda Ba NP [address] [facility] [address] [place] [address] PCP - General Nurse Practitioner 06/15/24 Ochoa Crow III, MD [address] [place] [address] Consulting Physician Rheumatology 04/09/17 Theresa Plasencia DPT [address] [place] [address] Physical Therapist Physical Therapy 11/23/20 Jenni Ochoa MD [address] [place] [address] Consulting Physician Rheumatology 11/26/21 Benito David III, MD PhD [address] [place] [address] Neurologist Neurology 11/26/21 Ez Ansari MD [address] [place] [address] Consulting Physician Ophthalmology 11/26/21 Jevon Mohr MD [address] [facility] [address] [place] [address] Miter Grinder Operator Cardiology 11/26/21 Nehal Price MD [address] [place] [address] Consulting Physician Pulmonary Disease 06/15/24
--- OUTSIDE RECORDS SUMMARY | 2024-09-13 14:40 | XMS_ITS | Encounter Summary ---
Author Organization [facility] Address [address] [place] [address] Phone Care Team Providers Care Human Resources Generalist Name Role Phone Jaime Buck MD Primary Care Provider [phone] Carlo Martinez DO Unavailable [phone] Reason for Visit * Reason Comments Medication Refill Encounter Details Date Type Department Care Team (Late st Contact Info) Description 12/14/2020 Refill [facility] - Neurology [facility] [address] [place] [address] Hitesh Enciso MD [address] [place] [phone] Medication Refill Social History Tobacco Use Types [...] neuralgia documented in this encounter Care Teams Human Resources Generalist Relationship Specialty Start Date End Date Jaime Buck MD [address] [place] [address] PCP - General Family Medicine 03/29/15 Carlo Martinez DO [address] [place] [address] Gastroenterology 03/29/15 documented as of this encounter
--- OUTSIDE RECORDS SUMMARY | 2024-09-13 14:40 | XMS_ITS | Encounter Summary ---
Author Organization [facility] Healthcare Address [address] [place] [address] Care Team Providers Care Chemical Operations And Training Name Role Phone Jaime Buck MD Primary Care Provider [phone] Tristin HSU MD, Ochoa Maddox Unavailable [phone] Janet Meier MD Unavailable [phone] Peewee Dalton BUYING INTERN Primary Care Provider [phone] Jessica Melendez MATERIAL LISTER Unavailable [phone] Theresa Plasencia DPT Unavailable [phone] Dawna Lara MATERIAL LISTER Unavailable [phone] Jenni Ochoa MD Unavailable [phone] Joann HSU MD PhD, Benito Palafox Unavailable Ez Ansari MD Unavailable [phone] Jevon Mohr MD Unavailable [phone] Vipul Palomo MD Primary Care Provider [phone] Neyda Ba BUYING INTERN Primary Care Provider [phone] Nehal Price MD Unavailable [phone] Encounter Details Date Type Department Care Team (Late st Contact Info) Description 09/15/2018 Telephone [facility] Radiology [address] [place] [address] Kustra, Ella Zina, RN Social [...] on file Legal Sex Male 7:30 PM PLANT ETIOLOGIST Gender Identity Not on file Sexual Orientation Not on file documented as of this encounter Plan of Treatment Not on file documented as of this encounter Visit Diagnoses Not on filedocumented in this encounter Care Teams Chemical Operations And Training Relationship Specialty Start Date End Date Jaime Buck MD [address] [place] [address] PCP - General 08/08/16 05/21/20 Peewee Dalton NP [address] [facility] 1 [facility] 1 [place] [address] PCP - General Nurse Practitioner 05/22/20 07/20/23 Vipul Palomo MD [facility]5 [facility] [address] [place] [address] PCP - General Family Practice 07/21/23 06/14/24 Neyda Ba NP [address] [facility] 1 [facility] 1 [place] [address] PCP - General Nurse Practitioner 06/15/24 Ochoa Crow III, MD [address] [facility] [address] [place] [address] Consulting Physician Rheumatology 04/09/17 Janet Meier MD [address] [place] [address] Referring Physician Pulmonary Disease 05/12/18 06/14/24 Jessica Melendez, MATERIAL LISTER [address] [facility] [address] [place] [address] Speech Language Pathologist Speech Therapy 10/25/20 12/17/20 Theresa Plasencia, DPT [address] [facility] [address] [place] [address] Physical Therapist Physical Therapy 11/23/20 Dawna Lara, MATERIAL LISTER [address] [facility] [address] [place] [address] Speech Language Pathologist Speech Therapy 12/18/20 02/18/21 Jenni Ochoa MD [address] [facility] [address] [place] [address] Consulting Physician Rheumatology 11/26/21 Benito David III, MD PhD [address] [facility] [address] [place] [address] Neurologist Neurology 11/26/21 Ez Ansari MD [address] [place] [address] Consulting Physician Ophthalmology 11/26/21 Jevon Mohr MD [address] [facility] [address] [place] [address] Adobe Block Maker Cardiology 11/26/21 Nehal Price MD [address] [place] [address] Consulting Physician Pulmonary Disease 06/15/24 documented as of this encounter
--- OUTSIDE RECORDS SUMMARY | 2024-09-13 14:40 | XMS_ITS | Encounter Summary ---
Author Organization [facility] Address [address] [place] [address] Phone Care Team Providers Care Stamping Mill Tender Name Role Phone Jaime Buck MD Primary Care Provider [phone] Carlo Martinez DO Unavailable [phone] Reason for Visit * Reason Comments Medication Refill Encounter Details Date Type Department Care Team (Late st Contact Info) Description 08/14/2020 Refill [facility] - Neurology - [place] [address] [place] [address] Hitesh Enciso MD [address] [place] [address] Medication Refill Social History Tobacco [...] on filedocumented in this encounter Care Teams Stamping Mill Tender Relationship Specialty Start Date End Date Jaime Buck MD [address] [place] [address] PCP - General Family Medicine 03/29/15 Carlo Martinez DO [address] [place] [address] Gastroenterology 03/29/15 documented as of this encounter
--- OUTSIDE RECORDS SUMMARY | 2024-09-13 14:40 | XMS_ITS | Clinical Summary ---
Author Organization [email or web address] Address [address] [facility] [place] [address] Care Team Providers Care Cotton Grower Name Role Phone Mateus Johnson DO Primary Care Provider [phone] Source Comments [email or web address],non-owned Affiliates and Associated Physician Practices is amultiple site organization consisting of ambulatory clinics and hospital sitesin [place], [place], [place] and [place]. This disclosure is being madepursuant to the Care Everywhere program and may not contain all information available regarding this patient. Last updated 18.[email or web address] Allergies Active Allergy Reactions Criticality Noted Date [...] Comments Blood Pressure 132/63 05/13/2024 9:50 AM PROBATE JUDGE Pulse 55 05/13/2024 9:50 AM PROBATE JUDGE Temperature 36.3 C (97.3 F) 05/13/2024 9:50 AM PROBATE JUDGE Respiratory Rate 18 05/13/2024 9:50 AM PROBATE JUDGE Oxygen Saturation 98% 05/13/2024 9:50 AM PROBATE JUDGE Inhaled Oxygen Concentration - - Weight 82.1 kg (181 lb) 05/13/2024 4:36 AM PROBATE JUDGE Height 157.5 cm (5' 2 ) 05/13/2024 4:36 AM PROBATE JUDGE Body Mass Index 33.11 05/13/2024 4:36 AM PROBATE JUDGE Plan of Treatment Health Maintenance Due Date [...] Insurance MEDICARE MEDICARE [facility] MEDICARE [facility] Advance Directives Documents on File Type Date Recorded Patient Wiper Blender Expl anation Healthcare Power of Gas Operations Analyst 05/18/2020 Medical POA * Full Code (Latest Code Status on File) Date Activated Date Inactivated Comments 05/12/2024 6:15 PM 05/13/2024 4:05 PM Care Teams Cotton Grower Relationship Specialty Start Date End Date Mateus Johnson DO [address] [facility] 1 [place] [address] PCP - General 03/12/21
--- OUTSIDE RECORDS SUMMARY | 2024-09-13 14:40 | XMS_ITS | Clinical Summary ---
Author Organization [facility] [address] Address [address] [place] [address] Care Team Providers Care Interviewing Clerk Name Role Phone Tristin HSU MD, Ochoa Maddox Unavailable Theresa Plasencia DPT Unavailable [phone] Jenni Ochoa MD Unavailable [phone] Joann HSU MD PhD, Benito Palafox Unavailable Ez Ansari MD Unavailable Jevon Mohr MD Unavailable [phone] Neyda Ba NP Primary Care Provider [phone] Nehal Price MD Unavailable [phone] Allergies Active Allergy Reactions Criticality Noted Date [...] 1 tablet (75 mcg total) by mouth cfd engineer before breakfast 3 9 Active hydrOXYchloroQ UINE [...] (12/24/2021): Added automatically from request for surgery [id number] Abnormal CT scan, gastrointestinal tract 022 Overview (12/18/2021): Added automatically from request for surgery [id number] Diplopia 08/28/2021 Bilateral lower extremity edema 10/26/2020 [...] he has had a swallow study with CHANGE CONTROL MANAGER in 2020. We have discussed another [...] for RBD, if needed. Follow-up with your senior web applications developer. We discussed evaluation with Sleep Medicine, if [...] he has had a swallow study with CHANGE CONTROL MANAGER in 2020. We discussed another swallow evaluation, but they prefer to hold off. Diplopia has extensively evaluated by Neuro-Ophtalmology (Dr. Montero), and is suspected to be PD-related. I recommend the following: Continue carbidopa/levodopa. Okay to take extra tab before [employer] games. Cut back ropinirole from 6 tabs [...] wonder if this is related to adverse GROUND HAND effects of these medications. He can try [...] he has had a swallow study with CHANGE CONTROL MANAGER in 2020. We discussed another swallow [...] carbidopa/levodopa. Okay to take extra tab before [employer]point games. Continue ropinirole. Continue gabapentin. We discussed [...] with applesauce, pudding or yogurt; or dissolving asj-flva-zhoxha pills in OJ or grape juice. No [...] sleepiness. Assessment & Plan (04/28/2022 3:53 PM INTERVIEWING CLERK): PD remains well controlled on his current [...] twice a day 5. Follow-up with your Neuro-Student Driving Instructor 6. Referral to Physical Therapy Assessment & [...] CCP neg 02/24 [facility] without rheumatoid factor 02/27/2017 Overview (02/17/2018): [...] weeks. Sooner if needed. Seen with Dr. Corw. Assessment & Plan (12/31/2017 11:17 AM CDT): [...] related to a rheumatological cause. Has seen orthopedic brace maker and rn immunology for this issue. Assessment & Plan (12/31/2017 [...] in sister. Coronary artery disease invo lving [place] coronary artery of [place] heart without angina pectoris 12/19/2016 Essential hypertension 12/19/2016 MOSHER (dyspnea on exertion) 12/19/2016 Assessment & Plan (03/05/2018 12:49 PM CDT): Patient having shortness of breath with walking and talking. Has stopped Ellipta inhaler, but still has albuterol inhaler prn. Advised to follow up with senior web applications developer. Urticaria, unspecified 08/21/2016 Erectile dysfunction due to [...] Description 08/26/2024 4:30 PM CDT Office Visit [facility] Movement Disorders [address] [facility] [address] 7th [place] [address] Benito David III, MD PhD Parkinson's disease without dyskinesia or fluctuating manifestations (HCC) (Primary Dx); Glossopharyngeal neuralgia; Restless legs syndrome 08/15/2024 9:45 AM CDT Office Visit [facility] Medical [facility] Hand Surgery [facility] [facility] [address] [place] [phone] Georges Wallis MD Pain of finger of left hand (Primary Dx) 08/11/2024 Results Follow-Up [facility] Cardiology [address] [place] [address] Jevon Mohr MD Bilateral lower extremity edema 08/01/2024 Telephone [facility] Cardiology [address] [place] [address] Jevon Mohr MD 07/18/2024 9:15 AM CDT Office Visit [facility] Hand Surgery [facility] [place] [phone] Georges Wallis MD Pain of finger of left hand (Primary Dx) 07/15/2024 Orders Only [facility] Medical [facility] Hand Surgery [address] [place] [address] [place] [phone] Georges Wallis MD 07/04/2024 10:45 AM INTERVIEWING CLERK Office Visit [facility] Hand Surgery [address] [place] [address] [place] [phone] Harriet Jacobs, ABHISHEK Pain of finger of left hand (Primary Dx); Acute osteomyelitis of phalanx of hand, left (HCC) 06/30/2024 1:00 PM INTERVIEWING CLERK Office Visit [facility] Medical [facility] Cardiology [address] [facility] [address] [place] [phone] Jevon Mohr MD Coronary artery disease involving [place] coronary artery of [place] heart without angina pectoris (Primary Dx); Essential hypertension; Hyperlipidemia LDL goal <70; MADDIE (obstructive sleep apnea) 06/27/2024 8:30 AM INTERVIEWING CLERK Office Visit [facility] Hand Surgery [address] [place] [address] [place] [phone] Harriet Jacobs, ABHISHEK Pain of finger of left hand (Primary Dx) 06/21/2024 10:01 AM INTERVIEWING CLERK Anesthesia Event [facility] OR [address] [place] [address] Kenneth Valenzuela MD Lee, Walter, MD 06/21/2024 10:00 AM INTERVIEWING CLERK - 06/21/2024 10:30 AM INTERVIEWING CLERK Surgery [facility] OR [address] [place] [address] Georges Wallis MD 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 06/21/2024 7:52 AM INTERVIEWING CLERK - 06/21/2024 12:10 PM INTERVIEWING CLERK Hospital Encounter [facility] OR [address] [place] [address] Georges Wallis MD Acute osteomyelitis of phalanx of hand, left (HCC) [M86.142] (Primary Dx); Acute osteomyelitis of phalanx of hand, left (HCC) Discharge Disposition: Discharge to home or self care 06/17/2024 Telephone [facility] [address] [facility] [address] [place] [phone] Georges Wallis MD from Last 3 [...] obstructive pulmonary disease (HCC) 05/12 Parkinson disease ([facility]) 09/26/2020 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, with psychotic disturbance ([facility]) 03/03/2024 Lung disease Hypothyroidism Anemia Family History Medical History Relation Name Comments Congenital heart disease Brother 1 Kota Crohn's disease Brother 2 Thomas Heart disease Brother 2 Thomas Coronary arter y disease; Heart attack Father Guillermo [place]; Cause of De ath: [place] Stomach cancer Mother Lilliian cancer, gastr ic; [...] (Age 74) Father Guillermo (Age 84) Mother Guererro (Age 64) Other 1 Other 2 Other [...] on file Legal Sex Male 7:30 PM INTERVIEWING CLERK Gender Identity Not on file Sexual Orientation Not on file Obstetrics History Last Filed Vital Signs Vital Sign Reading Time Taken Comments Blood Pressure 131/69 08/26/2024 3:57 PM CDT Pulse 63 08/26/2024 3:57 PM CDT Temperature 36.1 C (97 F) 06/21/2024 11:15 AM INTERVIEWING CLERK Respiratory Rate 18 06/21/2024 11:50 AM INTERVIEWING CLERK Oxygen Saturation 95% 06/30/2024 1:07 PM INTERVIEWING CLERK Inhaled Oxygen Concentration - - Weight 83.5 [...] edema SURGICAL PATHOLOGY Routine 06/21/2024 10:20 AM INTERVIEWING CLERK Acute osteomyelitis of phalanx of hand, left (HCC) NV AN PROCEDURE PLACEHOLDER Routine 06/21/2024 10:19 AM INTERVIEWING CLERK NV AN ELECTIVE SUPRAGLOTTIC AIRWAY Routine 06/21/2024 10:19 AM INTERVIEWING CLERK AMPUTATION FINGER 06/21/2024 10:06 AM INTERVIEWING CLERK Acute osteomyelitis of phalanx of hand, left [...] BLOOD ORDERABLES Baylee jones Result ELZBIETA Duarte [address] [place] [address] * Surgical pathology (06/21/2024 10:20 AM INTERVIEWING CLERK) Tissue specimen (specimen) (Amputation non-tramatic) 06/21/2024 10:20 AM INTERVIEWING CLERK Narrative PATHOLOGY [facility] - 06/22/2024 1:41 PM INTERVIEWING CLERK [facility] Department of Pathology [address] [place] [address] Note to Patients: This report may contain [...] 1940 (Age: 84) Gender: M Address: [address] [place] [address] Hospital #: [id number] Service: Surgery Location: Patient Type: [facility] OUTPATIENT Taken: 06/21/2024 Received: 06/21/2024 Accessioned: [...] for gross examination only. AMARILIS White, PA ([facility]) Microscopic slide review and interpretation for this case was performed at [facility], Department of Surgical Pathology, [address] [facility], [place] [id number], [place] [address] CLIA # [id number] Georges Wallis MD LAB PATHOLOGY ORDERABLES Final Result PATHOLOGY MB * NV AN ELECTIVE SUPRAGLOTTIC AIRWAY, NV AN PROCEDURE PLACEHOLDER (06/21/2024 10:19 AM INTERVIEWING CLERK) Deanna Servin CRNA - 06/21/2024 10:19 AM INTERVIEWING CLERK Deanna Lr CRNA 06/21/2024 10:20 AM Airway Patient location: OR Urgency: elective Indications for airway management: anesthesia Difficult airway: no Staff: Supervising provider: Kenneth Valenzuela MD Placed by: SURGICAL INSTRUMENT MECHANIC: Deanna Lr CRNA Emergent airway documentation: Risks [...] Insurance MEDICARE [facility] MEDICARE [facility] TRADITIONAL MEDICARE [employer] MEDICARE SUPPLEMENT MEDICARE [facility] Address: [address] [address] [place] [address] [facility] MEDICARE SUPPLEMENT Advance Directives For more information, please contact: [phone] Documents on File Type Date Recorded Patient Crack Off Person Expl anation Power of Environmental Aid 06/13/2024 9:34 AM * Full Code (Latest Code Status on File) Date Activated Date Inactivated Comments 12/24/2021 8:42 AM 12/24/2021 4:15 PM Care Teams Interviewing Clerk Relationship Specialty Start Date End Date Neyda Ba NP [address] [place] [address] PCP - General Nurse Practitioner 06/15/24 Ochoa Crow III, MD [address] [place] [address] Consulting Physician Rheumatology 04/09/17 Theresa Plasencia DPT [address] [place] [address] Physical Therapist Physical Therapy 11/23/20 Jenni Ochoa MD [address] [place] [address] Consulting Physician Rheumatology 11/26/21 Benito David III, MD PhD [address] [place] [address] Neurologist Neurology 11/26/21 Ez Ansari MD [address] [place] [address] Consulting Physician Ophthalmology 11/26/21 Jevon Mohr MD [address] [facility] [address] [place] [address] French Binder Cardiology 11/26/21 Nehal Price MD [address] [place] [address] Consulting Physician Pulmonary Disease 06/15/24
--- OUTSIDE RECORDS SUMMARY | 2024-09-13 14:40 | XMS_ITS | Encounter Summary ---
Author Organization [facility] Address [address] [place] [address] Phone Care Team Providers Care Director Volunteer Services Name Role Phone Jaime Buck MD Primary Care Provider [phone] Carlo Martinez DO Unavailable [phone] Reason for Visit * Reason Comments Medication Refill Encounter Details Date Type Department Care Team (Late st Contact Info) Description 09/05/2020 Refill [facility] Neu[facility] - [place] [address] [place] [address] Hitesh Enciso MD [address] [place] [address] Medication Refill Social History Tobacco [...] neuralgia documented in this encounter Care Teams Director Volunteer Services Relationship Specialty Start Date End Date Jaime Buck MD [address] [place] [address] PCP - General Family Medicine 03/29/15 Carlo Martinez DO [address] [place] [address] Gastroenterology 03/29/15 documented as of this encounter
--- OUTSIDE RECORDS SUMMARY | 2024-09-13 14:40 | XMS_ITS | Encounter Summary ---
Author Organization [facility] Address [address] [place] [address] Phone Care Team Providers Care Fibrous Wallboard Inspector Name Role Phone Jaime Buck MD Primary Care Provider [phone] Carlo Martinez DO Unavailable [phone] Reason for Visit * Reason Comments Medication Refill Encounter Details Date Type Department Care Team (Late st Contact Info) Description 11/03/2020 Refill [facility]rology - [place] [address] [place] [address] Hitesh Enciso MD [address] [place] [address] Medication Refill Social History Tobacco [...] on filedocumented in this encounter Care Teams Fibrous Wallboard Inspector Relationship Specialty Start Date End Date Jaime Buck MD [address] [place] [address] PCP - General Family Medicine 03/29/15 Carlo Martinez DO [address] [place] [address] Gastroenterology 03/29/15 documented as of this encounter
--- OUTSIDE RECORDS SUMMARY | 2024-09-13 14:40 | XMS_ITS | Encounter Summary ---
Author Organization [facility] Address [address] [place] [address] Phone Care Team Providers Care Production Clerk Name Role Phone Jaime Buck MD Primary Care Provider [phone] Carlo Martinez DO Unavailable [phone] Reason for Visit * Reason Comments Medication Refill Encounter Details Date Type Department Care Team (Late st Contact Info) Description 07/02/2020 Refill [facility] - Neurology - [place] [address] [place] [address] Hitesh Enciso MD [address] [place] [address] Medication Refill Social History Tobacco [...] filedocumented in this encounter Care Teams Production Clerk Relationship Specialty Start Date End Date Jaime Buck MD [address] [place] [address] PCP - General Family Medicine 03/29/15 Carlo Martinez DO [address] [place] [address] Gastroenterology 03/29/15 documented as of this encounter
--- OUTSIDE RECORDS SUMMARY | 2024-09-13 14:40 | XMS_ITS | Clinical Summary ---
Author Organization [facility] Address PHYSIC[address]ILDING [address] [place] [address] [address] [place] [address] Phone Care Team Providers Care 3D Artist Name Role Phone Jaime Buck MD Primary Care Provider [phone] Carlo Martinez DO Unavailable [phone] Allergies Active Allergy Reactions Criticality Noted [...] 93 kg (205 lb) 05/28/2020 9:09 AM OILING MACHINE OPERATOR Adarsh bal Height 170.2 cm (5' 7 ) 05/28/2020 9:09 AM OILING MACHINE OPERATOR Body Mass Index 32.11 05/28/2020 9:09 AM OILING MACHINE OPERATOR Plan of Treatment Health Maintenance Due [...] patient's age to complete [place] [address] MEDICARE [facility] Advance Directives Documents on File Type Date Recorded Patient Lockstitch Shoulder Joiner Expl anation POLST/POST/AL DNR 01/04/2020 2:54 PM POLST 10/20/2018 Care Teams 3D Artist Relationship Specialty Start Date End Date Jaime Buck MD [address] [place] [address] PCP - General Family Medicine 03/29/15 Carlo Martinez DO [address] [place] [address] Gastroenterology 03/29/15
--- OUTSIDE RECORDS SUMMARY | 2024-09-13 14:40 | XMS_ITS | Continuity of Care Document ---
Author Organization [facility] Address [address] [place] [address] [place] [address] Phone Care Team Providers Care Hydroelectric Powerplant Supervisor Name Role Phone Will Elias Unavailable Unavailable [...] Copied on Encounter Office/outpat ient Visit, [facility], [address] [place] [address] [address], [place], [place], [id number], [place] tel:[phone] [facility] No Information 5-201 0 Krishnasamy Will. [address] [facility] [address], [place], [place], [facility], [place]. tel:[phone] [facility], [address] [place] [address] [address], [place], [place], [id number], [place] tel:[phone] [facility] No Information 2-200 9 Krishnasamy Will. [address] [facility] [address], [place], [address], [place]. tel:[phone] Referring Provider: Will garcía [address] [facility] [address], [place], [place], [facility]. tel:[phone] Office/outpat ient Visit, [facility], [address] [place] [address] [address], [place], [place], [id number], tel:[phone] [facility] No Information Jan-0 3-200 9 Krishnasamy Will. [address] [facility] [address], [place], [place], [facility], . tel:[phone] Referring Provider: Carlo Blum, [address] [place] [address] [address], [place], [place], [facility]. tel:[phone] Office/outpat ient Visit, [facility], [address] [place] [address] [address], [place], [place], [id number], tel:[phone] [facility] No Information [address] Carlo. [address] [place] [address] , [address], [place], [place], [facility], . tel:[phone] [facility], [address] [place], [place] [address], [place], [place], [id number], tel:[phone] [facility] No Information 9-200 9 Krishnasamy Will. [facility] [address], [place], [place], [facility], . tel:[phone] Family History Family Member Type Diagnosis Age At Onset No Information Payers Payer name Insurance type Covered alliance party ID Authoriza tion(s) Medicare [facility] [id number] [place] [id number] Social History Type Description Quantity Date Captured [...]
--- OUTSIDE RECORDS SUMMARY | 2024-09-13 14:40 | XMS_ITS | Clinical Summary ---
Author Organization [employer] [facility] [facility] Address [address] [place] [address] Care Team Providers Care Supervisor Last Model Department Name Role Phone Jaime Buck MD Primary Care Provider [phone] Allergies Active Allergy Reactions Criticality Noted Date [...] 02/18/2017, 05/11/2009 Medical Devices Implanted Type Area Stainless Steel Finisher Device Identifier Shelf Expiration Date Model / Serial / Lot Hemostatic Surgiflo 8ml W/Thrombin [id number] - [id number] Implanted:Qty: 1 on 05/18/2019 by Tani Mcleod MD at [facility] N/A: Spine Lumbar [employer] 03/10/2020 [id number] / / [id number] Insurance [address] [id number] MEDICARE PART A AND B [facility] Advance Directives For more information, please contact: [phone] * Full Code (Latest Code Status on File) Date Activated Date Inactivated Comments 02/28/2022 11:10 AM 02/28/2022 5:54 PM * Full Code Date Activated Date Inactivated Comments 05/18/2019 10:00 AM 05/18/2019 3:39 PM Care Teams Supervisor Last Model Department Relationship Specialty Start Date End Date Jaime Buck MD [address] [place] [address] PCP - General Family Practice 03/08/19
--- OUTSIDE RECORDS SUMMARY | 2024-09-13 14:40 | XMS_ITS | Encounter Summary ---
Author Organization [facility] Address [address] [place] [address] Phone Care Team Providers Care Environmental Science Technician Name Role Phone Jaime Buck MD Primary Care Provider [phone] Carlo Martinez DO Unavailable [phone] Reason for Visit * Reason Comments Medication Refill Encounter Details Date Type Department Care Team (Late st Contact Info) Description 09/29/2020 Refill [facility] Neurology - [place] [address]1 [place] [address] Hitesh Enciso MD [address] [place] [address] Medication Refill Social History Tobacco [...] on filedocumented in this encounter Care Teams Environmental Science Technician Relationship Specialty Start Date End Date Jaime Buck MD [address] [place] [address] PCP - General Family Medicine 03/29/15 Carlo Martinez DO [address] [place] [address] Gastroenterology 03/29/15 documented as of this encounter
[2024-09-13 15:50] VITALS: BP 138/69; PULSE 63; RESP 19; O2SAT 97
== END 2024-09-13 15:52 | disposition home or self-care (01) ==
PROVIDERS: Preventive Medicine Aerospace Medicine; Emergency Provider Emergency Medicine; PCP Nurse Practitioner Family
DX: J44.9 Chronic obstructive pulmonary disease, unspecified (principal); N40.0 Benign prostatic hyperplasia without lower urinary tract symptoms; G20.A1 Parkinson's disease without dyskinesia, without mention of fluctuations; F02.80 Dementia in other diseases classified elsewhere, unspecified severity, without behavioral disturbance, psychotic disturbance, mood disturbance, and anxiety; E03.9 Hypothyroidism, unspecified; M06.9 Rheumatoid arthritis, unspecified; K21.9 Gastro-esophageal reflux disease without esophagitis; G47.30 Sleep apnea, unspecified; I11.0 Hypertensive heart disease with heart failure; I50.9 Heart failure, unspecified; I25.10 Atherosclerotic heart disease of native coronary artery without angina pectoris
CPT/HCPCS: 36415; 71046; 80053; 83880; 84484; 85025; 85610; 85730; 93005; 94640; 99284

== ENCOUNTER 2024-09-29 10:45 | Outpatient (CLI) | payer MEDICARE, SELFPAY ==
--- NOTE | ~2024-09-29 | XR_ITS ---
Clinical Indication: Cough AP and lateral views of the chest: Comparison: 09/13/2024 Findings: The lungs are clear, without evidence of focal consolidation or pleural effusion. Cardiome diastinal silhouette is stable. Bones and soft tissues are unremarkable. Impression: Clear lungs. Reviewed, dictated and finalized at location . Impression: Clear lungs.
== END 2024-09-29 10:46 | disposition home or self-care (01) ==
LOC: MICIMG 10:46
PROVIDERS: PCP Nurse Practitioner Family; Visit Provider Nurse Practitioner Family
DX: R05.9 Cough, unspecified (principal)
CPT/HCPCS: 71046

== ENCOUNTER 2024-09-30 09:34 | Outpatient (CLI) | payer MEDICARE, SELFPAY ==
--- NOTE | ~2024-09-30 | CT_ITS ---
EXAMINATION: CT diagnostic chest wo con DATE: 09/30/2024 09:55 INDICATION: R05.9 - Cough, unspecified TECHNIQUE: Computed tomography (CT) of the chest was performed without intravenous contrast. Addition al 3D reconstructions utilizing coronal maximum intensity projection (MIP) were performed. Automated exposure control and iterative reconstruction technique were employed. The dose-length product was 52 5.61 mGy-cm. COMPARISON: 01/15/2023 FINDINGS: Unchanged small region of scarring associated mild bronchiectatic change in the posterior segment of the right upper lobe. There is a region of patchy groundglass opacities and ill-defined tree-in-bud o pacities in the superior segment and posterior basilar segment of the left lower lobe suspicious for pneumonia. No pulmonary edema or pleural effusion. Couple calcified nodules in the right middle lobe along with calcified right hilar and mediastinal lymph nodes consistent with old granulomatous diseas e. Heart size is normal. 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 Thoracic aorta is normal in caliber. No pathologically enla rged thoracic lymphadenopathy. Cholecystectomy clips at the gallbladder fossa. There are additional s urgical clips at the epigastric region. A few scattered hepatic and splenic calcifications consistent with old granulomatous disease. 3 and 4 mm nonobstructing stone at a lower pole calyx of the right k idney. Moderate thoracic spondylosis with bridging osteophytes at multiple levels consistent with dif fuse idiopathic skeletal hyperostosis (DISH). IMPRESSION: 1. Left lower lobe pneumonia. Reviewed, dictated and finalized at location A.
--- OUTSIDE RECORDS SUMMARY | 2024-09-30 09:42 | XMS_ITS | Encounter Summary ---
Author Organization [facility] Address [address] [place] [address] Phone Care Team Providers Care Customs House Broker Name Role Phone Jaime Buck MD Primary Care Provider [phone] Carlo Martinez DO Unavailable Reason for Visit * Reason Comments Medication Refill Encounter Details Date Type Department Care Team (Late st Contact Info) Description 09/29/2020 Refill [facility] - Neurology - [place] [address]1 [place] [address] Hitesh Enciso MD [address] [place] [address] Medication Refill Social History Tobacco [...] on filedocumented in this encounter Care Teams Customs House Broker Relationship Specialty Start Date End Date Jaime Buck MD [address] [place] [address] PCP - General Family Medicine 03/29/15 Carlo Martinez DO [address] [place] [address] Gastroenterology 03/29/15 documented as of this encounter
--- OUTSIDE RECORDS SUMMARY | 2024-09-30 09:42 | XMS_ITS | Clinical Summary ---
Author Organization [facility] Address [address] [place] [address] Care Team Providers Care Orthotist Prosthetist Name Role Phone Mateus Johnson DO Primary Care Provider [phone] Source Comments [facility],non-owned Affiliates and Associated Physician Practices is amultiple site organization consisting of ambulatory clinics and hospital sitesin [place], [place], [place] and [place]. This disclosure is being madepursuant to the Care Everywhere program and may not contain all information available regarding this patient. Last updated 18.[facility] Allergies Active Allergy Reactions Criticality Noted Date [...] Comments Blood Pressure 132/63 05/13/2024 9:50 AM PARK RANGER Pulse 55 05/13/2024 9:50 AM PARK RANGER Temperature 36.3 C (97.3 F) 05/13/2024 9:50 AM PARK RANGER Respiratory Rate 18 05/13/2024 9:50 AM PARK RANGER Oxygen Saturation 98% 05/13/2024 9:50 AM PARK RANGER Inhaled Oxygen Concentration - - Weight 82.1 kg (181 lb) 05/13/2024 4:36 AM PARK RANGER Height 157.5 cm (5' 2 ) 05/13/2024 4:36 AM PARK RANGER Body Mass Index 33.11 05/13/2024 4:36 AM PARK RANGER Plan of Treatment Health Maintenance Due Date [...] to complete this topic Insurance MEDICARE MEDIC[facility] MEDICARE [facility] Advance Directives Documents on File Type Date Recorded Patient Hse Advisor Expl anation Healthcare Power of Parking Enforcement Officer 05/18/2020 Medical POA * Full Code (Latest Code Status on File) Date Activated Date Inactivated Comments 05/12/2024 6:15 PM 05/13/2024 4:05 PM Care Teams Orthotist Prosthetist Relationship Specialty Start Date End Date Mateus Johnson DO [address] [facility] 1 [place] [address] PCP - General 03/12/21
--- OUTSIDE RECORDS SUMMARY | 2024-09-30 09:42 | XMS_ITS | Clinical Summary ---
Author Organization [employer] [address] [facility] Address [address] [place] [address] Care Team Providers Care Double Bass Player Name Role Phone Jaime Buck MD Primary Care Provider [phone] Allergies Active Allergy Reactions Criticality Noted Date [...] 02/18/2017, 05/11/2009 Medical Devices Implanted Type Area Masonry Instructor Device Identifier Shelf Expiration Date Model / Serial / Lot Hemostatic Surgiflo 8ml W/Thrombin 2994 - [id number] Implanted:Qty: 1 on 05/18/2019 by Tani Mcleod MD at [facility] N/A: Spine Lumbar [employer] 03/10/2020 [id number] / / [id number] Insurance [address] [id number] MEDICARE PART A AND B [facility] Advance Directives For more information, please contact: [phone] * Full Code (Latest Code Status on File) Date Activated Date Inactivated Comments 02/28/2022 11:10 AM 02/28/2022 5:54 PM * Full Code Date Activated Date Inactivated Comments 05/18/2019 10:00 AM 05/18/2019 3:39 PM Care Teams Double Bass Player Relationship Specialty Start Date End Date Jaime Buck MD [address] [place] [address] PCP - General Family Practice 03/08/19
--- OUTSIDE RECORDS SUMMARY | 2024-09-30 09:42 | XMS_ITS | Clinical Summary ---
Author Organization [facility] [address] Address [address] [place] [address] Care Team Providers Care Customer Consulting Manager Name Role Phone Tristin HSU MD, Ochoa Maddox Unavailable [phone] Theresa Plasencia DPT Unavailable [phone] Jenni Ochoa MD Unavailable [phone] Joann HSU MD PhD, Benito Palafox Unavailable Ez Ansari MD Unavailable Jevon Mohr MD Unavailable Neyda Ba NP Primary Care Provider [phone] Nehal Price MD Unavailable [phone] Allergies Active Allergy Reactions Criticality Noted Date [...] 1 tablet (75 mcg total) by mouth emt basic before breakfast 3 9 Active hydrOXYchloroQU INE (PLAQUENIL) 200 mg tablet Take 2 tablets [...] day 2 Active gabapentin (NEURONTIN) 300 mg capsuleIndicati ons:Restless leg syndrome Take 1 capsule (300 mg total) by mouth 4 (four) times a day 360 capsule 3 4 Active finasteride (PROSCAR) 5 mg tablet Take 1 tablet (5 mg total) by mouth daily 4 Active carbidopa-levod opa (SINEMET) 25-100 mg per tabletIndicatio ns:Parkinson disease (HCC) TAKE 2 TABLETS BY MOUTH [...] 3 4 Active bumetanide (BUMEX) 1 mg tabletIndicatio ns:Bilateral lower extremity edema Take 2 tablets (2 mg total) by mouth daily 60 tablet 11 5 Active Active Problems Problem Noted Date Diagnosed Date Pyogenic inflammation of bone 06/14/2024 Pain of finger of left hand 06/14/2024 Acute osteomyelitis of phalanx of hand, left 07/2024 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 We have discussed another swallow [...] for RBD, if needed. Follow-up with your electric solderer. We discussed evaluation with Sleep Medicine, if [...] he has had a swallow study with WOOD ROOM SUPERVISOR in 2020. We discussed another swallow evaluation, but they prefer to hold off. Diplopia has extensively evaluated by Neuro-Ophtalmology (Dr. Montero), and is suspected to be PD-related. I recommend the following: Continue carbidopa/levodopa. Okay to take extra tab before [employer] games. Cut back ropinirole from 6 tabs [...] wonder if this is related to adverse TERRAZZO TILE SETTER effects of these medications. He can try [...] he has had a swallow study with WOOD ROOM SUPERVISOR in 2020. We discussed another swallow evaluation, [...] with applesauce, pudding or yogurt; or dissolving zgj-yabw-mlmfwq pills in OJ or grape juice. No [...] 6a/12p/6p; may try 1 extra tab before [employer] games. Same ropinirole, if hallucinations worsen, we will decrease this. Continue gabapentin. Continue carbamazepine 200mg twice a day Start APDA youtube channel exercises. Referral to Physical Therapy. 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 Could try caffeine for daytime sleepiness. Assessment & Plan (04/28/2022 3:53 PM PRODUCTION LINE): PD remains well controlled on his current [...] twice a day 5. Follow-up with your Neuro-Wellness Program Coordinator 6. Referral to Physical Therapy Assessment & [...] CCP neg 02/24 Rheumatoid arthritis of mult [facility] without rheumatoid factor 02/27/2017 Overview (02/17/2018): [...] related to a rheumatological cause. Has seen shuttle preparation supervisor and computer hardware engineer for this issue. Assessment & Plan (12/31/2017 [...] in sister. Coronary artery disease invo lving [place] coronary artery of [place] heart without angina pectoris 12/19/2016 Essential hypertension 12/19/2016 MOSHER (dyspnea on exertion) 12/19/2016 Assessment & Plan (03/05/2018 12:49 PM CDT): Patient having shortness of breath with walking and talking. Has stopped Ellipta inhaler, but still has albuterol inhaler prn. Advised to follow up with electric solderer. Urticaria, unspecified 08/21/2016 Erectile dysfunction due to [...] Breakthrough episode, continue carbemazapine at current dose MADDEI (obstructive sleep apnea) 09/06/2013 Overview (08/13/2016): Sleep [...] 08/26/2024 4:30 PM CDT Office Visit [facility] Movement Disorders [address] [facility] 7th [place] [address] Benito David III, MD PhD Parkinson's disease without dyskinesia or fluctuating manifestations (HCC) (Primary Dx); Glossopharyngeal neuralgia; Restless legs syndrome 08/15/2024 9:45 AM CDT Office Visit [facility] Hand Surgery [address] [place] [phone] Georges Wallis MD Pain of finger of left hand (Primary Dx) 08/11/2024 Results Follow-Up [facility] Cardiology [address] [facility] [address] [place] [phone] Jevon Mohr MD Basic metabolic panel 08/01/2024 Telephone [facility] Cardiology [address] [facility] [address] [place] [phone] Jevon Mohr MD 07/18/2024 9:15 AM CDT Office Visit [facility] Hand Surgery [address] [place] [phone] Georges Wallis MD Pain of finger of left hand (Primary Dx) 07/15/2024 Orders Only [facility] Hand Surgery [address] [place] [phone] Georges Wallis MD 07/04/2024 10:45 AM PRODUCTION LINE Office Visit [facility] Hand Surgery [address] [place] [phone] Harriet Jacobs, ABHISHEK Pain of finger of left hand (Primary Dx); Acute osteomyelitis of phalanx of hand, left (HCC) from Last 3 Months Immunizations Immunization Administration [...] obstructive pulmonary disease (HCC) 05/12 Parkinson disease (HCC) 09/26/2020 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, with psychotic disturbance ([facility]) 03/03/2024 Lung disease Hypothyroidism Anemia Family History Medical History Relation Name Comments Congenital heart disease Brother 1 Kota Crohn's disease Brother 2 Thomas Heart disease Brother 2 Thomas Coronary arter y disease; Heart attack Father Guill[place]; Cause of De ath: [place] Stomach cancer Mother Guerrero cancer, gastr ic; Cause of : cancer, [...] on file Legal Sex Male 7:30 PM PRODUCTION LINE Gender Identity Not on file Sexual Orientation Not on file Obstetrics History Last Filed Vital Signs Vital Sign Reading Time Taken Comments Blood Pressure 131/69 08/26/2024 3:57 PM CDT Pulse 63 08/26/2024 3:57 PM CDT Temperature 36.1 C (97 F) 06/21/2024 11:15 AM PRODUCTION LINE Respiratory Rate 18 06/21/2024 11:50 AM PRODUCTION LINE Oxygen Saturation 95% 06/30/2024 1:07 PM PRODUCTION LINE Inhaled Oxygen Concentration - - Weight 83.5 [...] 11:03 AM CDT Bilateral lower extremity edema from Last 3 Months Results * (ABNORMAL) [...] MD LAB BLOOD ORDERABLES Baylee jones Result [facility] [address] [id number] from Last 3 Months Insurance MEDICARE [facility] MEDICARE [facility] MEDICARE [facility] MEDICARE SUPPLEMENT MEDICARE [facility] MEDICARE SUPPLEMENT Advance Directives For more information, please contact: [phone] Documents on File Type Date Recorded Patient Human Resources Generalist Expl anation Power of Financial Quantitative Analyst 06/13/2024 9:34 AM * Full Code (Latest Code Status on File) Date Activated Date Inactivated Comments 12/24/2021 8:42 AM 12/24/2021 4:15 PM Care Teams Customer Consulting Manager Relationship Specialty Start Date End Date Neyda Ba NP [address] [facility] [address] [place] [address] PCP - General Nurse Practitioner 06/15/24 Ochoa Crow III, MD [address] [place] [address] Consulting Physician Rheumatology 04/09/17 Theresa Plasencia DPT [address] [place] [address] Physical Therapist Physical Therapy 7/16/21 Jenni Ochoa MD [address] [place] [address] Consulting Physician Rheumatology 11/26/21 Benito David III, MD PhD [address] [place] [address] Neurologist Neurology 11/26/21 Ez Ansari MD [address] [place] [address] Consulting Physician Ophthalmology 11/26/21 Jevon Mohr MD [address] [facility] [address] [place] [address] Patient Services Specialist Cardiology 11/26/21 Nehal Price MD [address] [place] [address] Consulting Physician Pulmonary Disease 06/15/24
--- OUTSIDE RECORDS SUMMARY | 2024-09-30 09:42 | XMS_ITS | Encounter Summary ---
Author Organization [facility] Address [address] [place] [address] Phone Care Team Providers Care Acid Loader Name Role Phone Jaime Buck MD Primary Care Provider [phone] Carlo Martinez DO Unavailable [phone] Reason for Visit * Reason Comments Medication Refill Encounter Details Date Type Department Care Team (Late st Contact Info) Description 08/14/2020 Refill [facility] - Neurology - [place] [address] [place] [address] Hitesh Enciso MD [address] [place] [address] Medication Refill Social History Tobacco [...] on filedocumented in this encounter Care Teams Acid Loader Relationship Specialty Start Date End Date Jaime Buck MD [address] [place] [address] PCP - General Family Medicine 03/29/15 Carlo Martinez DO [address] [place] [address] Gastroenterology 03/29/15 documented as of this encounter
--- OUTSIDE RECORDS SUMMARY | 2024-09-30 09:42 | XMS_ITS | Encounter Summary ---
Author Organization [facility] Address [address] [place] [address] Phone Care Team Providers Care Adjunct Art History Instructor Name Role Phone Jaime Buck MD Primary Care Provider [phone] Carlo Martinez DO Unavailable Reason for Visit * Reason Comments Medication Refill Encounter Details Date Type Department Care Team (Late st Contact Info) Description 07/02/2020 Refill [facility] - Neurology - [place] [address] [place] [address] Hitesh Enciso MD [address] [place] [address] Medication Refill Social History Tobacco [...] on filedocumented in this encounter Care Teams Adjunct Art History Instructor Relationship Specialty Start Date End Date Jaime Buck MD [address] [place] [address] PCP - General Family Medicine 03/29/15 Carlo Martinez DO [address] [place] [address] Gastroenterology 03/29/15 documented as of this encounter
--- OUTSIDE RECORDS SUMMARY | 2024-09-30 09:42 | XMS_ITS | Encounter Summary ---
Author Organization [facility] Healthcare Address [address] [place] [address] Care Team Providers Care Transit Coach Operator Name Role Phone Jaime Buck MD Primary Care Provider [phone] Tristin SHU MD, Ochoa Maddox Unavailable [phone] Janet Meier MD Unavailable [phone] Peewee Dalton DIGITAL CONTENT COORDINATOR Primary Care Provider [phone] Jessica Melendez LOGGING SUPERINTENDENT Unavailable [phone] Theresa Plasencia DPT Unavailable [phone] Dawna Lara LOGGING SUPERINTENDENT Unavailable [phone] Jenni Ochoa MD Unavailable [phone] Joann HSU MD PhD, Benito Palafox Unavailable Ez Ansari MD Unavailable [phone] Jevon Mohr MD Unavailable [phone] Vipul Palomo MD Primary Care Provider [phone] Neyda Ba DIGITAL CONTENT COORDINATOR Primary Care Provider [phone] Nehal Price MD Unavailable [phone] Encounter Details Date Type Department Care Team (Late st Contact Info) Description 08/25/2018 Telephone [facility] Radiology [address] [place] [address] Kustra, Ella Zina, RN Social [...] on file Legal Sex 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 Gender Identity Not on file Sexual Orientation Not on file documented as of this encounter Plan of Treatment Not on file documented as of this encounter Visit Diagnoses Not on filedocumented in this encounter Care Teams Transit Coach Operator Relationship Specialty Start Date End Date Jaime Buck MD [address] [place] [address] PCP - General 08/08/16 05/21/20 Peewee Dalton NP [address] [facility] 1 [facility] 1 [place] [address] PCP - General Nurse Practitioner 05/22/20 07/20/23 Vipul Palomo MD [facility]5 [facility] [address] [place] [address] PCP - General Family Practice 07/21/23 06/14/24 Neyda Ba NP [address] [facility] 1 [facility] 1 [place] [address] PCP - General Nurse Practitioner 06/15/24 Ochoa Crow III, MD [address] [facility] [address] [place] [address] Consulting Physician Rheumatology 04/09/17 Janet Meier MD [address] [place] [address] Referring Physician Pulmonary Disease 05/12/18 06/14/24 Jessica Melendez, LOGGING SUPERINTENDENT [address] [facility] [address] [place] [address] Speech Language Pathologist Speech Therapy 10/25/20 12/17/20 Theresa Plasencia, DPT [address] [facility] [address] [place] [address] Physical Therapist Physical Therapy 11/23/20 Dawna [place]ara, LOGGING SUPERINTENDENT [address] [facility] [address] [place] [address] Speech Language Pathologist Speech Therapy 12/18/20 02/18/21 Jenni Ochoa MD [address] [facility] [address] [place] [address] Consulting Physician Rheumatology 11/26/21 Benito David III, MD PhD [address] [facility] [address] [place] [address] Neurologist Neurology 11/26/21 Ez Ansari MD [address] [place] [address] Consulting Physician Ophthalmology 11/26/21 Jevon Mohr MD [address] [facility] [address] [place] [address] Telecom Sales Consultant Cardiology 11/26/21 Nehal Price MD [address] [place] [address] Consulting Physician Pulmonary Disease 06/15/24 documented as of this encounter
--- OUTSIDE RECORDS SUMMARY | 2024-09-30 09:42 | XMS_ITS | Encounter Summary ---
Author Organization [facility] Healthcare Address [address] [place] [address] Care Team Providers Care Sheriff Deputy Name Role Phone Jaime Buck MD Primary Care Provider [phone] Tristin HSU MD, Ochoa Maddox Unavailable [phone] Janet Meier MD Unavailable [phone] Peewee Dalton CHARHOUSE WORKER Primary Care Provider [phone] Jessica Melendez EXCHANGE TROUBLE SHOOTER Unavailable [phone] Theresa Plasencia DPT Unavailable [phone] Dawna Lara EXCHANGE TROUBLE SHOOTER Unavailable [phone] Jenni Ochoa MD Unavailable [phone] Joann HSU MD PhD, Benito Palafox Unavailable Ez Ansari MD Unavailable [phone] Jevon Mohr MD Unavailable [phone] Vipul Palomo MD Primary Care Provider [phone] Neyda Ba CHARHOUSE WORKER Primary Care Provider [phone] Nehal Price MD Unavailable [phone] Encounter Details Date Type Department Care Team (Late st Contact Info) Description 09/15/2018 Telephone [facility] Radiology 1 [place] [address] Kustra, Ella Zina, RN Social [...] on file 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 Gender Identity Not on file Sexual Orientation Not on file documented as of this encounter Plan of Treatment Not on file documented as of this encounter Visit Diagnoses Not on filedocumented in this encounter Care Teams Sheriff Deputy Relationship Specialty Start Date End Date Jaime Buck MD [address] [place] [address] PCP - General 08/08/16 05/21/20 Peewee Dalton NP [address] [facility] 1 [facility] 1 [place] [address] PCP - General Nurse Practitioner 05/22/20 07/20/23 Vipul Palomo MD [facility]5 [facility] [address] [place] [address] PCP - General Family Practice 07/21/23 06/14/24 Neyda Ba NP [address] [facility] 1 [facility] 1 [place] [address] PCP - General Nurse Practitioner 06/15/24 Ochoa Crow III, MD [address] [facility] [address] [place] [address] Consulting Physician Rheumatology 04/09/17 Janet Meier MD [address] [place] [address] Referring Physician Pulmonary Disease 05/12/18 06/14/24 Jessica Melendez, EXCHANGE TROUBLE SHOOTER [address] [facility] [address] [place] [address] Speech Language Pathologist Speech Therapy 10/25/20 12/17/20 Theresa Plasencia, DPT [address] [facility] [address] [place] [address] Physical Therapist Physical Therapy 11/23/20 Dawna [place], EXCHANGE TROUBLE SHOOTER [address] [facility] [address] [place] [address] Speech Language Pathologist Speech Therapy 12/18/20 02/18/21 Jenni Ochoa MD [address] [facility] 1 [place] [address] Consulting Physician Rheumatology 11/26/21 Benito David III, MD PhD [address] [facility] [address] [place] [address] Neurologist Neurology 11/26/21 Ez Ansari MD [address] [place] [address] Consulting Physician Ophthalmology 11/26/21 Jevon Mohr MD [address] [facility] [address] [place] [address] Rail Car Repairman Cardiology 11/26/21 Nehal Price MD [address] [place] [address] Consulting Physician Pulmonary Disease 06/15/24 documented as of this encounter
--- OUTSIDE RECORDS SUMMARY | 2024-09-30 09:42 | XMS_ITS | Encounter Summary ---
Author Organization [facility] Address [address] [place] [address] Phone Care Team Providers Care Ranger Aide Name Role Phone Jaime Buck MD Primary Care Provider [phone] Carlo Martinez DO Unavailable [phone] Reason for Visit * Reason Comments Medication Refill Encounter Details Date Type Department Care Team (Late st Contact Info) Description 11/03/2020 Refill [facility] - Neurology - [place] [address]1 [place] [address] Hitesh Enciso MD [address] [place] [address] Medication Refill Social History Tobacco [...] on filedocumented in this encounter Care Teams Ranger Aide Relationship Specialty Start Date End Date Jaime Buck MD [address] [place] [address] PCP - General Family Medicine 03/29/15 Carlo Martinez DO [address] [place] [address] Gastroenterology 03/29/15 documented as of this encounter
--- OUTSIDE RECORDS SUMMARY | 2024-09-30 09:42 | XMS_ITS | Continuity of Care Document ---
Author Organization [facility] Address [address] [place] [address] [place] [address] Phone Care Team Providers Care Machine Clothing Man Name Role Phone Will Elias Unavailable Unavailable [...] Copied on Encounter Office/outpat ient Visit, [facility], [address] [place] [address] [address], [place], [place], [id number], [place] tel:[phone] [facility] No Information 5-201 0 Krishnasamy Will. [address] [facility] [address], [place], [place], [facility], [place]. tel:[phone] [facility], [address] [place] [address] [address], [place], [place], [id number], [place] tel:[phone] [facility] No Information 2-200 9 Krishnasamy Will. [address] [facility] [address], [place], [address], [place]. tel:[phone] Referring Provider: Will garcía [address] [facility] [address], [place], [place], [facility]. tel:[phone] Office/outpat ient Visit, [facility], [address] [place] [address] [address], [place], [place], [id number], tel:[phone] [facility] No Information Jan-0 3-200 9 Krishnasamy Will. [address] [facility] [address], [place], [place], [facility], . tel:[phone] Referring Provider: Carlo Blum, [address] [place] [address] [address], [place], [place], [facility]. tel:[phone] Office/outpat ient Visit, [facility], [address] [place] [address] [address], [place], [place], [id number], tel:[phone] [facility] No Information [address] Carlo. [address] [place] [address] , [address], [place], [place], [facility], . tel:[phone] [facility], [address] [place], [place] [address], [place], [place], [id number], tel:[phone] [facility] No Information 9-200 9 Krishnasamy Will. [facility] [address], [place], [place], [facility], . tel:[phone] Family History Family Member Type Diagnosis Age At Onset No Information Payers Payer name Insurance type Covered alliance party ID Authoriza tion(s) Medicare [facility] [id number] BCBS [place] Commercial BL [id number] Social History Type Description Quantity Date Captured [...]
--- OUTSIDE RECORDS SUMMARY | 2024-09-30 09:42 | XMS_ITS | Encounter Summary ---
Author Organization [facility] Address [address] [place] [address] Phone Care Team Providers Care House Painter Helper Name Role Phone Jaime Buck MD Primary Care Provider [phone]- [phone] Carlo Martinez DO Unavailable [phone] Reason for Visit * Reason Comments Medication Refill Encounter Details Date Type Department Care Team (Late st Contact Info) Description 05/19/2021 Refill [facility] - Gastroenterology - [place] [address] [place] [address] Tashia Aguilar Pretty, PAC [address] [place] [address] Medication Refill Social History Tobacco Use Types [...] Deanna Lake RN - 05/21/2021 4:28 PM CERTIFIED COMPOSITES TECHNICIAN Medication refilled and signed per [facility] chronic medication standing order for pediatric and adult patients. IFIED COMPOSITES TECHNICIAN * Telephone Encounter - Deanna Lake RN - 05/21/2021 4:21 PM CERTIFIED COMPOSITES TECHNICIAN Pharmacy requesting refill of: Requested Prescriptions Pending Prescriptions Disp Refills ??? famotidine (PEPCID) 20 MG Tablet [Pharmacy Med Name: FAMOTIDINE 20MG TABLETS] 180 Tablet 3 Sig: TAKE 1 TABLET BY MOUTH TWICE DAILY Last fill: 05/28/2020 Patients last OV with GI: telemedicine office visit on 05/28/2020 Next Office Visit with GI: None scheduled. Called patient, offered an appt. Patient scheduled 06/03/2021. IFIED COMPOSITES TECHNICIAN documented in this encounter Plan of Treatment Not on file documented as of this encounter Visit Diagnoses Diagnosis Gastroesophageal reflux disease with esophagitis without hemorrhage documented in this encounter Care Teams House Painter Helper Relationship Specialty Start Date End Date Jaime Buck MD [address] [place] [address] PCP - General Family Medicine 03/29/15 Carlo Martinez DO [address] [place] [address] Gastroenterology 03/29/15 documented as of this encounter
--- OUTSIDE RECORDS SUMMARY | 2024-09-30 09:42 | XMS_ITS | Referral Summary ---
Author Organization [facility] [address] Address [address] [place] [address] Care Team Providers Care Environment Artist Name Role Phone Tristin HSU MD, Ochoa Maddox Unavailable Theresa Plasencia DPT Unavailable [phone] Jenni Ochoa MD Unavailable [phone] Joann HSU MD PhD, Benito Palafox Unavailable Ez Ansari MD Unavailable Jevon Mohr MD Unavailable [phone] Neyda Ba NP Primary Care Provider Nehal Price MD Unavailable [phone] Encounters Date Type Department Care Team Description 08/26/2024 4:30 PM CDT Office Visit [facility] Movement Disorders [address] [facility] 7th [place] [address] Benito David III, MD PhD Parkinson's disease without dyskinesia or fluctuating manifestations (HCC) (Primary Dx); Glossopharyngeal neuralgia; Restless legs syndrome 08/15/2024 9:45 AM CDT Office Visit [facility] Medical Group Hand Surgery [facility] [address] [place] [phone] Georges Wallis MD Pain of finger of left hand (Primary Dx) 08/11/2024 Results Follow-Up [facility] Cardiology [address] [place] [phone] Jevon Mohr MD Basic metabolic panel 08/01/2024 Telephone [facility] Cardiology [address] [facility] [address] [place] [address] Jevon Mohr MD 07/18/2024 9:15 AM CDT Office Visit [facility] Hand Surgery [address] [place] [address] [address] [place] [address] Georges Wallis MD Pain of finger of left hand (Primary Dx) 07/15/2024 Orders Only [facility] Hand Surgery [address] [place] [address] [place] [phone] Georges Wallis MD 07/04/2024 10:45 AM DIETETIC ASSISTANT Office Visit [facility] Hand Surgery [address] [place] [address] [place] [phone] Harriet Jacobs, ABHISHEK Pain of finger of left hand (Primary Dx); Acute osteomyelitis of phalanx of hand, left (HCC) from Last 3 Months Allergies Active Allergy [...] 1 tablet (75 mcg total) by mouth packing house supervisor before breakfast 3 9 Active hydrOXYchloroQU INE [...] (12/24/2021): Added automatically from request for surgery [id number] Abnormal CT scan, gastrointestinal tract 022 Overview (12/18/2021): Added automatically from request for surgery [id number] Diplopia 08/28/2021 Bilateral lower extremity edema 10/26/2020 [...] he has had a swallow study with PINBALL MACHINE REPAIRER in 2020. We have discussed another swallow [...] for RBD, if needed. Follow-up with your tool and gauge inspector. We discussed evaluation with [facility], if desired. We discussed follow-up with [facility], Dr. Montero, if needed. Return to [...] he has had a swallow study with PINBALL MACHINE REPAIRER in 2020. We discussed another swallow evaluation, but they prefer to hold off. Diplopia has extensively evaluated by Neuro-Ophtalmology (Dr. Montero), and is suspected to be PD-related. I recommend the following: Continue carbidopa/levodopa. Okay to take extra tab before doForms games. Cut back ropinirole from 6 tabs [...] wonder if this is related to adverse EPIC WILLOW ANALYST effects of these medications. He can try [...] he has had a swallow study with PINBALL MACHINE REPAIRER in 2020. We discussed another swallow evaluation, [...] with applesauce, pudding or yogurt; or dissolving lma-bqea-roonrw pills in OJ or grape juice. No [...] 6a/12p/6p; may try 1 extra tab before doForms games. Same ropinirole, if hallucinations worsen, we will decrease this. Continue gabapentin. Continue carbamazepine 200mg twice a day Start APDA youtube channel exercises. Referral to Physical Therapy. 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 Could try caffeine for daytime sleepiness. Assessment & Plan (04/28/2022 3:53 PM DIETETIC ASSISTANT): PD remains well controlled on his current [...] twice a day 5. Follow-up with your Neuro-Folder Hand 6. Referral to Physical Therapy Assessment & [...] Plan (10/28/2017 11:51 AM CDT): Cxr neg 10/17 Gaye + 1:40 on 02/24 RF, CCP [...] related to a rheumatological cause. Has seen mattress renovator and analysis intern for this issue. Assessment & Plan (12/31/2017 [...] in sister. 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 Has stopped Ellipta inhaler, but still has albuterol inhaler prn. Advised to follow up with tool and gauge inspector. Urticaria, unspecified 08/21/2016 Erectile dysfunction due [...] on file Legal Sex Male 7:30 PM DIETETIC ASSISTANT Gender Identity Not on file Sexual Orientation Not on file Last Filed Vital Signs Vital Sign Reading Time Taken Comments Blood Pressure 131/69 08/26/2024 3:57 PM CDT Pulse 63 08/26/2024 3:57 PM CDT Temperature 36.1 C (97 F) 06/21/2024 11:15 AM DIETETIC ASSISTANT Respiratory Rate 18 06/21/2024 11:50 AM DIETETIC ASSISTANT Oxygen Saturation 95% 06/30/2024 1:07 PM DIETETIC ASSISTANT Inhaled Oxygen Concentration - - Weight 83.5 [...] Basic metabolic panel (08/10/2024 11:03 AM CDT) Pathologist [facility] Glucose 94 65 - 139 mg/dL [facility] [...] BLOOD ORDERABLES Baylee l Result [facility] [address] [address] [place] [id number] from Last 3 Months Insurance MEDICARE [facility] MEDICARE [facility] MEDICARE Inventalator [place] MEDICARE SUPPLEMENT MEDICARE [employer] MEDICARE SUPPLEMENT Advance Directives For more information, please contact: [phone] Documents on File Type Date Recorded Patient Bagman/Woman Expl anation Power of Teacher Dancing 06/13/2024 9:34 AM * Full Code (Latest Code Status on File) Date Activated Date Inactivated Comments 12/24/2021 8:42 AM 12/24/2021 4:15 PM Care Teams Environment Artist Relationship Specialty Start Date End Date Neyda Ba NP [address] [facility] [address] [place] [address] PCP - General Nurse Practitioner 06/15/24 Ochoa Crow III, MD [address] [place] [address] Consulting Physician Rheumatology 04/09/17 Theresa Plasencia DPT [address] [place] [address] Physical Therapist Physical Therapy 11/23/20 Jenni Ochoa MD [address] [place] [address] Consulting Physician Rheumatology 11/26/21 Benito David III, MD PhD [address] [place] [address] Neurologist Neurology 11/26/21 Ez Ansari MD [address] [place] [address] Consulting Physician Ophthalmology 11/26/21 Jevon Mohr MD [address] [place] [address] Disability Examiner Cardiology 11/26/21 Nehal Price MD [address] [place] [address] Consulting Physician Pulmonary Disease 06/15/24
--- OUTSIDE RECORDS SUMMARY | 2024-09-30 09:42 | XMS_ITS | Encounter Summary ---
Author Organization [facility] Address [address] [place] [address] Phone Care Team Providers Care Watch Engineer Name Role Phone Jaime Buck MD Primary Care Provider [phone] Carlo Martinez DO Unavailable [phone] Reason for Visit * Reason Comments Medication Refill Encounter Details Date Type Department Care Team (Late st Contact Info) Description 12/14/2020 Refill [facility] - Neurology [facility] [address] [place] [address] Hitesh Enciso MD [address] [place] [phone] Medication Refill Social History Tobacco Use Types [...] neuralgia documented in this encounter Care Teams Watch Engineer Relationship Specialty Start Date End Date Jaime Buck MD [address] [place] [address] PCP - General Family Medicine 03/29/15 Carlo Martinez DO [address] [place] [address] Gastroenterology 03/29/15 documented as of this encounter
--- OUTSIDE RECORDS SUMMARY | 2024-09-30 09:42 | XMS_ITS | Clinical Summary ---
Author Organization [facility] Address PHYSICIAN BUILDING [address] [place] [address] [address] [place] [address] Phone Care Team Providers Care Canvas Repairer Name Role Phone Jaime Buck MD Primary Care Provider [phone]- [phone] Carlo Martinez DO Unavailable [phone] Allergies Active Allergy Reactions Criticality Noted [...] 93 kg (205 lb) 05/28/2020 9:09 AM SCOUTS Adarsh bal Height 170.2 cm (5' 7 ) 05/28/2020 9:09 AM SCOUTS Body Mass Index 32.11 05/28/2020 9:09 AM SCOUTS Plan of Treatment Health Maintenance Due Date [...] patient's age to complete [place] [address] MEDICARE [facility] Advance Directives Documents on File Type Date Recorded Patient Blast Hole Driller Expl anation POLST/POST/HI DNR 01/04/2020 2:54 PM POLST 10/20/2018 Care Teams Canvas Repairer Relationship Specialty Start Date End Date Jaime Buck MD [address] [place] [address] PCP - General Family Medicine 03/29/15 Carlo Martinez DO [address] [place] [address] Gastroenterology 03/29/15
--- OUTSIDE RECORDS SUMMARY | 2024-09-30 09:42 | XMS_ITS | Encounter Summary ---
Author Organization [facility] Address [address] [place] [address] Phone Care Team Providers Care Riveter Name Role Phone Jaime Buck MD Primary Care Provider [phone] Carlo Martinez DO Unavailable [phone] Reason for Visit * Reason Comments Medication Refill Encounter Details Date Type Department Care Team (Late st Contact Info) Description 01/07/2021 Refill [facility] - Neurology [facility] [address] [place] [address] Hitesh Enciso MD [address] [place] [address] Medication Refill Social History Tobacco Use Types [...] on filedocumented in this encounter Care Teams Riveter Relationship Specialty Start Date End Date Jaime Buck MD [address] [place] [address] PCP - General Family Medicine 03/29/15 Carlo Martinez DO [address] [place] [address] Gastroenterology 03/29/15 documented as of this encounter
--- OUTSIDE RECORDS SUMMARY | 2024-09-30 09:42 | XMS_ITS | Encounter Summary ---
Author Organization [facility] Address [address] [place] [address] Phone Care Team Providers Care Distillery Miller Name Role Phone Jaime Buck MD Primary Care Provider [phone] Carlo Martinez DO Unavailable [phone] Reason for Visit * Reason Comments Medication Refill Encounter Details Date Type Department Care Team (Late st Contact Info) Description 09/05/2020 [facility]ill [facility] Neurology - [place] [address] [place] [address] Hitesh Enciso MD [address] [place] [address] Medication Refill Social History Tobacco [...] neuralgia documented in this encounter Care Teams Distillery Miller Relationship Specialty Start Date End Date Jaime Buck MD [address] [place] [address] PCP - General Family Medicine 03/29/15 Carlo Martinez DO [address] [place] [address] Gastroenterology 03/29/15 documented as of this encounter
== END 2024-09-30 09:35 | disposition home or self-care (01) ==
PROVIDERS: PCP Nurse Practitioner Family; Visit Provider Nurse Practitioner Family
DX: J18.1 Lobar pneumonia, unspecified organism (principal); J81.1 Chronic pulmonary edema; J44.9 Chronic obstructive pulmonary disease, unspecified
CPT/HCPCS: 71250

== ENCOUNTER 2024-10-17 09:10 | Inpatient (IN) | payer MEDICARE, SELFPAY ==
[2024-10-17] VITALS (11 sets, daily range): BP systolic 102–171; BP diastolic 50–78; PULSE 54–75; RESP 16–20; TEMP 36.4–36.7; O2SAT 91–97; BMI 31.4
--- NOTE | ~2024-10-17 | XR_ITS ---
MODIFIED ESOPHAGRAM HISTORY: Dysphagia. Prior failed modified barium swallow study. TECHNIQUE: Modified barium esophagram was performed on 10/24/2024. I administered fluoroscopy and perf ormed the exam with speech pathologist. Patient was seated for lateral fluoroscopic imaging for alana stion of thin liquids, pudding, solids and quantified amounts, followed by thin liquids in uncontroll ed amounts. This was recorded on tape. A single fluoroscopic spot image was also recorded. The DAP fo r this procedure was 1.505 Gycm2. The amount of fluoroscopy time used during this procedure was 1.6 m inutes. FINDINGS: Oral stage: Reduced lingual movement.. Pharyngeal stage: Reduced laryngeal elevation and adduction. Reduced tongue base retraction and reduc ed pharyngeal squeeze. There is vallecular and piriform sinus residue. There is laryngeal penetration and aspiration. Cervical/esophageal stage: Esophageal/pharyngeal backflow.. IMPRESSION: Dysphagia with laryngeal penetration and aspiration. Please correlate with speech pathol ogist findings and specific feeding recommendations. Reviewed, dictated and finalized at location A. IMPRESSION: Dysphagia with laryngeal penetration and aspiration. Please correl ate with speech pathologist findings and specific feeding recommendations.
--- NOTE | ~2024-10-17 | XR_ITS ---
XR abdomen gastric tube insert Ordering provider: Ese Cabello MD History: . NG tube placement . Comparison: None. FINDINGS / impression: Nasogastric tube is seen with the tip in the distal stomach. Reviewed, dictated and finalized at location A.
--- NOTE | ~2024-10-17 | XR_ITS ---
Clinical Indication: Chest pain PA and lateral views of the chest: Comparison: 09/29/2024 Findings: The lungs are clear, without evidence of focal consolidation or pleural effusion. Cardiome diastinal silhouette is stable. Bones and soft tissues are unremarkable. Impression: Clear lungs. Status post CABG. Reviewed, dictated and finalized at location . Impression: Clear lungs. Status post CABG.
--- NOTE | ~2024-10-17 | XR_ITS ---
MODIFIED ESOPHAGRAM HISTORY: Dysphagia. TECHNIQUE: Modified barium esophagram was performed on 10/19/2024. I administered fluoroscopy and perf ormed the exam with speech pathologist. Patient was seated for lateral fluoroscopic imaging for alana stion of thin liquids, pudding, solids and quantified amounts, followed by thin liquids in uncontroll ed amounts. This was recorded on tape. 2 fluoroscopic spot images were also recorded. The DAP for thi s procedure was 2.7 Gycm2. The amount of fluoroscopy time used during this procedure was 4.0 minutes. FINDINGS: Oral stage: Adequate function. Pharyngeal stage: Reduced laryngeal elevation and tongue base retraction. There is both vallecular an d piriform sinus residue. There is laryngeal penetration with trace aspiration following the swallow on all trials. Cervical/esophageal stage: Adequate function. IMPRESSION: Pharyngeal dysphagia with laryngeal penetration and trace aspiration with all trials. Pl ease correlate with speech pathologist findings and specific feeding recommendations. Reviewed, dictated and finalized at location A. IMPRESSION: Pharyngeal dysphagia with laryngeal penetration and trace aspiratio n with all trials. Please correlate with speech pathologist findings and speci fic feeding recommendations.
--- NOTE | 2024-10-17 09:11 | ECG_ITS ---
Test Date: 2024-10-17 09:18:18 Measurements Intervals [place] Rate: 69 P: 79 ME: 219 QRS: -51 QRSD: 135 T: 76 QT: 433 QTc: 467 Interpretive Statements SINUS RHYTHM WITH FIRST DEGREE AV BLOCK WITH FREQUENT SUPRAVENTRICULAR PREMATURE COMPLEXES RIGHT BUNDLE BRANCH BLOCK LEFT ANTERIOR FASCICULAR BLOCK CANNOT R/O SEPTAL INFARCT, AGE INDETERMINATE ABNORMAL ECG Compared to ECG 09/13/2024 13:43:42 NO SIGNIFICANT CHANGE Electronically Signed On 10-17-2024 09:23:02 CDT by Jaylen Mata D.O.
[2024-10-17 09:30] LABS: Basophils Absolute Auto 0.1 K/mm3 (0.0-0.1); Eosinophils Absolute Auto 0.1 K/mm3 (0-0.3); Eosinophils Percent Auto 2.9 % (0-4.4); Hematocrit 38.4 % (42.0-52.0); Hemoglobin 12.7 g/dL (14.0-18.0); Immature Granulocyte Absolute 0.01 K/mm3 (0.00-0.031); Immature Granulocyte Percent A 0.2 % (0-0.5); Lymphocytes Absolute Auto 1.22 K/mm3 (0.9-3.2); Lymphocytes Percent Auto 24.9 % (18.3-44.2); Mean Corpuscular HGB Conc 33.1 g/dl (32-36); Mean Corpuscular Hemoglobin 32.6 pg (26-34); Mean Corpuscular Volume 98.7 fl (80-100); Mean Platelet Volume 10.4 fl (7.4-10.4); Monocytes Absolute Auto 0.6 K/mm3 (0.1-0.6); Monocytes Percent Auto 11.7 % (2.6-8.5); Neutrophils Absolute Auto 2.9 K/mm3 (1.3-6.7); Neutrophils Percent Auto 59.3 % (45.5-73.1); Platelet Count Result 150 k/mm3 (150-375); Red Blood Count 3.89 M/mm3 (4.6-6.20); Red Cell Distribution Width 12.4 % (11.5-14.5); White Blood Count 4.9 K/mm3 (4.5-10.0)
[2024-10-17 09:43] LABS: Alanine Aminotransferase 11 U/L (6-50); Albumin Level 4.3 g/dL (3.5-5.1); Alkaline Phosphatase 139 U/L (38-126); Anion Gap 7 mmol/L (4-12); Aspartate Amino Transferase 28 U/L (17-59); Bilirubin,Total 0.5 mg/dL (0.2-1.3); Blood Urea Nitrogen 31 mg/dL (9-20); Calcium 9.1 mg/dL (8.4-10.2); Carbon Dioxide 28 mmol/L (22-30); Chloride 103 mmol/L (98-107); Estimated CRCL calculation 40 ml/min; Estimated Glomerular Filt Rate 60; Glucose 101 mg/dL (65-110); Lipase 31 U/L (23-300); Sodium 138 mmol/L (137-145); Total Protein 7.3 g/dL (6.3-8.2)
[2024-10-17 09:44] LABS: Prothrombin Time 13.1 Seconds (11.1-14.7)
[2024-10-17 09:45] LABS: Partial Thromboplastin Time 29.4 Seconds (22.3-36.8)
--- OUTSIDE RECORDS SUMMARY | 2024-10-17 09:46 | XMS_ITS | Encounter Summary ---
Author Organization [facility] Address [address] [place] [address] Phone Care Team Providers Care Motorized Squad Sergeant Name Role Phone Jaime Buck MD Primary Care Provider [phone]- [phone] Carlo Martinez DO Unavailable [phone] Reason for Visit * Reason Comments Medication Refill Encounter Details Date Type Department Care Team (Late st Contact Info) Description 09/05/2020 Refill [facility] Neurology - [place] [address] [place] [address] Hitesh Enciso MD [address] [place] [address] Medication Refill Social History Tobacco [...] neuralgia documented in this encounter Care Teams Motorized Squad Sergeant Relationship Specialty Start Date End Date Jaime Buck MD [address] [place] [address] PCP - General Family Medicine 03/29/15 Carlo Martinez DO [address] [place] [address] Gastroenterology 03/29/15 documented as of this encounter
--- OUTSIDE RECORDS SUMMARY | 2024-10-17 09:46 | XMS_ITS | Encounter Summary ---
Author Organization [facility] Address [address] [place] [address] Phone Care Team Providers Care Senior Research Analyst Name Role Phone Jaime Buck MD Primary Care Provider [phone]- [phone] Carlo Martinez DO Unavailable [phone] Reason for Visit * Reason Comments Medication Refill Encounter Details Date Type Department Care Team (Late st Contact Info) Description 05/19/2021 Refill [facility] Gastroenterology - [place] [address] [place] [address] Tashia Aguilar October, PAC [address] [place] [address] Medication Refill Social History Tobacco Use Types [...] Deanna Lake RN - 05/21/2021 4:28 PM TIRE BUILDER Medication refilled and signed per [facility] chronic medication standing order for pediatric and adult patients. BUILDER * Telephone Encounter - Deanna Lake RN - 05/21/2021 4:21 PM TIRE BUILDER Pharmacy requesting refill of: Requested Prescriptions Pending Prescriptions Disp Refills ??? famotidine (PEPCID) 20 MG Tablet [Pharmacy Med Name: FAMOTIDINE 20MG TABLETS] 180 Tablet 3 Sig: TAKE 1 TABLET BY MOUTH TWICE DAILY Last fill: 05/28/2020 Patients last OV with GI: telemedicine office visit on 05/28/2020 Next Office Visit with GI: None scheduled. Called patient, offered an appt. Patient scheduled 06/03/2021. BUILDER documented in this encounter Plan of Treatment Not on file documented as of this encounter Visit Diagnoses Diagnosis Gastroesophageal reflux disease with esophagitis without hemorrhage documented in this encounter Care Teams Senior Research Analyst Relationship Specialty Start Date End Date Jaime Buck MD [address] [place] [address] PCP - General Family Medicine 03/29/15 Carlo Martinez DO [address] [place] [address] Gastroenterology 03/29/15 documented as of this encounter
--- OUTSIDE RECORDS SUMMARY | 2024-10-17 09:46 | XMS_ITS | Clinical Summary ---
Author Organization [facility] [address] [facility] Address [address] [place] [address] Care Team Providers Care Research Phlebotomist Name Role Phone Jaime Buck MD Primary Care Provider [phone] Allergies Active Allergy Reactions Criticality Noted Date [...] 10:50 AM CDT Height 165.1 cm (5' 5) 02/12/2022 11:57 AM CDT Body Mass Index [...] 02/18/2017, 05/11/2009 Medical Devices Implanted Type Area Traveling Sales Executive Device Identifier Shelf Expiration Date Model / Serial / Lot Hemostatic Surgiflo 8ml W/Thrombin [id number] - [id number] Implanted:Qty: 1 on 05/18/2019 by Tani Mcleod MD at [facility] N/A: Spine Lumbar [employer] 03/10/2020 [id number] / / [id number] Insurance [address] [id number] MEDICARE PART A AND B [facility] Advance Directives For more information, please contact: [phone] * Full Code (Latest Code Status on File) Date Activated Date Inactivated Comments 02/28/2022 11:10 AM 02/28/2022 5:54 PM * Full Code Date Activated Date Inactivated Comments 05/18/2019 10:00 AM 05/18/2019 3:39 PM Care Teams Research Phlebotomist Relationship Specialty Start Date End Date Jaime Buck MD [address] [place] [address] PCP - General Family Practice 03/08/19
--- OUTSIDE RECORDS SUMMARY | 2024-10-17 09:46 | XMS_ITS | Encounter Summary ---
Author Organization [facility] Address [address] [place] [address] Phone Care Team Providers Care Nut Tapper Name Role Phone Jaime Buck MD Primary Care Provider [phone]- [phone] Carlo Martinez DO Unavailable [phone] Reason for Visit * Reason Comments Medication Refill Encounter Details Date Type Department Care Team (Late st Contact Info) Description 12/14/2020 Refill [facility] - Neurology [facility] [address] [place] [address] Hitesh Enciso MD [address] [place] [address] Medication Refill Social History Tobacco Use Types [...] neuralgia documented in this encounter Care Teams Nut Tapper Relationship Specialty Start Date End Date Jaime Buck MD [address] [place] [address] PCP - General Family Medicine 03/29/15 Carlo Martinez DO [address] [place] [address] Gastroenterology 03/29/15 documented as of this encounter
--- OUTSIDE RECORDS SUMMARY | 2024-10-17 09:46 | XMS_ITS | Encounter Summary ---
Author Organization [facility] Address [address] [place] [address] Phone Care Team Providers Care Telecommunications Project Manager Name Role Phone Jaime Buck MD Primary Care Provider [phone] Carlo Martinez DO Unavailable [phone] Reason for Visit * Reason Comments Medication Refill Encounter Details Date Type Department Care Team (Late st Contact Info) Description 11/03/2020 Refill [facility] Neurology - [place] [address] [place] [address] Hitesh Enciso MD [address] [place] [address] Medication Refill Social History Tobacco [...] on filedocumented in this encounter Care Teams Telecommunications Project Manager Relationship Specialty Start Date End Date Jaime Buck MD [address] [place] [address] PCP - General Family Medicine 03/29/15 Carlo Martinez DO [address] [place] [address] Gastroenterology 03/29/15 documented as of this encounter
--- OUTSIDE RECORDS SUMMARY | 2024-10-17 09:46 | XMS_ITS | Encounter Summary ---
Author Organization [facility] Address [address] [place] [address] Phone Care Team Providers Care Petrography Teacher Name Role Phone Jaime Buck MD Primary Care Provider [phone] Carlo Martinez DO Unavailable [phone] Reason for Visit * Reason Comments Medication Refill Encounter Details Date Type Department Care Team (Late st Contact Info) Description 07/02/2020 Refill [facility] Neurology - [place] [address] [place] [address] Hitesh Enciso MD [address] [place] [address] Medication Refill Social History Tobacco [...] on filedocumented in this encounter Care Teams Petrography Teacher Relationship Specialty Start Date End Date Jaime Buck MD [address] [place] [address] PCP - General Family Medicine 03/29/15 Carlo Martinez DO [address] [place] [address] Gastroenterology 03/29/15 documented as of this encounter
--- OUTSIDE RECORDS SUMMARY | 2024-10-17 09:46 | XMS_ITS | Clinical Summary ---
Author Organization [facility] [email or web address] Address [address] [place] [address] Care Team Providers Care Cotton Seed Culler Name Role Phone Mateus Johnson DO Primary Care Provider Source Comments [facility] [email or web address],non-owned Affiliates and Associated Physician Practices is amultiple site organization consisting of ambulatory clinics and hospital sitesin [place], [place], [place] and [place]. This disclosure is being madepursuant to the Care Everywhere program and may not contain all information available regarding this patient. Last updated 18.[facility] [email or web address] Allergies Active Allergy Reactions Criticality Noted Date [...] Comments Blood Pressure 132/63 05/13/2024 9:50 AM PATROL CAPTAIN Pulse 55 05/13/2024 9:50 AM PATROL CAPTAIN Temperature 36.3 C (97.3 F) 05/13/2024 9:50 AM PATROL CAPTAIN Respiratory Rate 18 05/13/2024 9:50 AM PATROL CAPTAIN Oxygen Saturation 98% 05/13/2024 9:50 AM PATROL CAPTAIN Inhaled Oxygen Concentration - - Weight 82.1 kg (181 lb) 05/13/2024 4:36 AM PATROL CAPTAIN Height 157.5 cm (5' 2) 05/13/2024 4:36 AM PATROL CAPTAIN Body Mass Index 33.11 05/13/2024 4:36 AM PATROL CAPTAIN Plan of Treatment Health Maintenance Due Date [...] to complete this topic Insurance MEDICARE MEDICARE [facility] ALEXANDER CAMPUSEM MEDICARE [facility] Advance Directives Documents on File Type Date Recorded Patient Back Shoe Operator Expl anation Healthcare Power of Manager Technical Sales 05/18/2020 Medical POA * Full Code (Latest Code Status on File) Date Activated Date Inactivated Comments 05/12/2024 6:15 PM 05/13/2024 4:05 PM Care Teams Cotton Seed Culler Relationship Specialty Start Date End Date Mateus Johnson DO [address] [place] [address] PCP - General 03/12/21
--- OUTSIDE RECORDS SUMMARY | 2024-10-17 09:46 | XMS_ITS | Encounter Summary ---
Author Organization [facility] Address [address] [place] [address] Phone Care Team Providers Care Sales Ambassador Name Role Phone Jaime Buck MD Primary Care Provider [phone]- [phone] Carlo Martinez DO Unavailable [phone] Reason for Visit * Reason Comments Medication Refill Encounter Details Date Type Department Care Team (Late st Contact Info) Description 08/14/2020 Refill [facility] - [facility] - [place] [address]1 [place] [address] Hitesh Enciso MD [address] [place] [address] Medication Refill Social History Tobacco [...] on filedocumented in this encounter Care Teams Sales Ambassador Relationship Specialty Start Date End Date Jaime Buck MD [address] [place] [address] PCP - General Family Medicine 03/29/15 Carlo Martinez DO [address] [place] [address] Gastroenterology 03/29/15 documented as of this encounter
--- OUTSIDE RECORDS SUMMARY | 2024-10-17 09:46 | XMS_ITS | Encounter Summary ---
Author Organization [facility] Address [address] [place] [address] Phone Care Team Providers Care Autism Specialist Name Role Phone Jaime Buck MD Primary Care Provider [phone]- [phone] Carlo Martinez DO Unavailable [phone] Reason for Visit * Reason Comments Medication Refill Encounter Details Date Type Department Care Team (Late st Contact Info) Description 01/07/2021 Refill [facility] - Neurology [facility] [address] [place] [address] Hitesh Enciso MD [address] [place] [id number] Medication Refill Social History Tobacco Use Types [...] on filedocumented in this encounter Care Teams Autism Specialist Relationship Specialty Start Date End Date Jaime Buck MD [address] [place] [address] PCP - General Family Medicine 03/29/15 Carlo Martinez DO [address] [place] [address] Gastroenterology 03/29/15 documented as of this encounter
--- OUTSIDE RECORDS SUMMARY | 2024-10-17 09:46 | XMS_ITS | Encounter Summary ---
Author Organization [facility] Address [address] [place] [address] Phone Care Team Providers Care Grit Removal Operator Name Role Phone Jaime Buck MD Primary Care Provider [phone]- [phone] Carlo Martinez DO Unavailable [phone] Reason for Visit * Reason Comments Medication Refill Encounter Details Date Type Department Care Team (Late st Contact Info) Description 09/29/2020 Refill [facility] - [facility]rology - [place] [address] [place] [address] Hitesh Enciso MD [address] [place] [address] Medication Refill Social History Tobacco [...] on filedocumented in this encounter Care Teams Grit Removal Operator Relationship Specialty Start Date End Date Jaime Buck MD [address] [place] [address] PCP - General Family Medicine 03/29/15 Carlo Martinez DO [address] [place] [address] Gastroenterology 03/29/15 documented as of this encounter
--- OUTSIDE RECORDS SUMMARY | 2024-10-17 09:46 | XMS_ITS | Continuity of Care Document ---
Author Organization [facility] Address [address] [place] [address] [place] [address] Phone Care Team Providers Care Bankruptcy Attorney Name Role Phone Will Elias Unavailable Unavailable [...] Copied on Encounter Office/outpat ient Visit, [facility], [address] [place] [address] [address], [place], [place], [id number], [place] tel:[phone] [facility] No Information 5-201 0 Krishnasamy Will. [address] [facility] [address], [place], [place], [facility], [place]. tel:[phone] [facility], [address] [place] [address] [address], [place], [place], [id number], [place] tel:[phone] [facility] No Information 2-200 9 Krishnasamy Will. [address] [facility] [address], [place], [address], [place]. tel:[phone] Referring Provider: Will garcía 24[address] [facility] [address], [place], [place], [facility]. tel:[phone] Office/outpat ient Visit, [facility], [address] [place] [address] [address], [place], [place], [id number], tel:[phone] [facility] No Information Jan-0 3-200 9 Krishnasamy Will. [address] [facility] [address], [place], [facility], . tel:[phone] Referring Provider: Carlo Blum, [address] [place] [address] [address], [place], [facility]. tel:[phone] Office/outpat ient Visit, [facility] [address] [place] [address] [address], [place], [place], [id number], tel:[phone] [facility] No Information [address] Carlo. [address] [place] [address] , [address], [place], [place], [facility], . tel:[phone] [facility], [address] [place], [place] [address], [place], [place], [id number], tel:[phone] [facility] No Information 9-200 9 Krishnasamy Will. [facility] [address], [place], [place], [facility], . tel:[phone] Family History Family Member Type Diagnosis Age At Onset No Information Payers Payer name Insurance type Covered green party ID Authoriza tion(s) Medicare [facility] [id number] BCBS MD Commercial BL [id number] Social History Type Description Quantity Date Captured [...]
--- OUTSIDE RECORDS SUMMARY | 2024-10-17 09:46 | XMS_ITS | Clinical Summary ---
Author Organization [facility] Address [address] [place] [address] [address] [place] [address] Phone Care Team Providers Care Cargo Supervisor Name Role Phone Jaime Buck MD Primary Care Provider [phone] Carlo Martinez DO Unavailable [phone] Allergies Active Allergy Reactions Criticality Noted [...] 93 kg (205 lb) 05/28/2020 9:09 AM WHIZZER HAND Adarsh bal Height 170.2 cm (5' 7) 05/28/2020 9:09 AM WHIZZER HAND Body Mass Index 32.11 05/28/2020 9:09 AM WHIZZER HAND Plan of Treatment Health Maintenance Due Date Last Done Comments Hepatitis C Virus (HCV) Screening 1940 Respiratory Syncytial Virus (RSV) Immunization (Adult) (1 - 1-dose 75+ series) 2013 Zoster Immunization (2 of 2) 03/27/2021 01/30/2021 SARS-COV-2 Immunization ( season) 2024 09/05/2021, 12/29/2020, 07/30/2020, Additional history exists Influenza Immunization (Season Ended) 2025 01/30/2021, 01/21/2020, 01/21/2020, Additional history exists Pneumococcal Immunization (50+ years) Completed 02/23/2018, 02/18/2017, 05/11/2009 Pneumococcal Immunization Combined Discontinued 02/23/2018, 02/18/2017, 05/11/2009 DTaP/Tdap/Td Immunization Discontinued 07/05/2020 TdaP Immunization Completed 07/05/2020 Hepatitis B Immunization Aged Out No longer eligible based on patient's age to complete this topic Human Papillomavirus (HPV) Immunization Aged Out No longer eligible based on patient's age to complete this topic Meningococcal Immunization (ACWY) Aged Out No longer eligible based on patient's age to complete this topic Rotavirus Immunization Aged Out No lo nger eligible based on patient's age to complete this topic Insurance MEDICARE [facility] Advance Directives Documents on File Type Date Recorded Patient Lead Java J2Ee Developer Expl anation [place]ST/[place] DNR 01/04/2020 2:54 PM POLST 10/20/2018 Care Teams Cargo Supervisor Relationship Specialty Start Date End Date Jaime Buck MD [address] [place] [address] PCP - General Family Medicine 03/29/15 Carlo Martinez DO [address] [place] [address] Gastroenterology 03/29/15
--- NOTE | 2024-10-17 09:51 | ED_ITS ---
HPI - Chest Pain General Chief Complaint: Chest Pain Stated Complaint: chest pain Time Seen by Provider: 10/17/24 09:30 Source: patient, family, RN notes reviewed and old records reviewed Mode of arrival: ambulatory Limitations: no limitations History of Present Illness HPI narrative: This is an 84 year old male with history of multiple medical problems including GeRD and CABG who presents for evaluation of chest pain. He reports that he developed pain 1 hour prior to arrival. He was sitting drinking coffee and eating breakfast when he developed pain. HE reports left chest pain that radiates down his left arm. He developed nausea and vomiting on his way back from [facility]. He denies previous chest pain. He denies any exacerbating factors. His road engineer is Dr. Mohr and he is due for his 6 month check up. He reports having stress test 1 year ago. HE rates pain 10/10 although he is in no acute distress. He took aspirin 324 mg PO prior to coming to ER this morning. Related Data Home Medications ?Medication ?Instructions ?Recorded ?Confirmed ?Last Taken ?Type aspirin 81 mg tablet,delayed 81 mg PO QHS 03/23/19 10/17/24 10/16/24 20:00 History release (Aspir-Low) tamsulosin 0.4 mg capsule 0.4 mg PO HS 04/24/20 10/17/24 10/16/24 20:00 History gabapentin 300 mg capsule 300 mg PO QID 05/15/20 10/17/24 10/17/24 07:00 History nitroglycerin 0.4 mg sublingual 0.4 mg sublingual PRN PRN Chest 10/23/22 10/17/24 Unknown History tablet Pain finasteride 5 mg tablet 5 mg PO DAILY 02/01/24 10/17/24 10/17/24 07:00 History carbidopa 25 mg-levodopa 100 mg 2 tablet PO TID 07/20/24 10/17/24 10/17/24 07:00 History tablet bumetanide 1 mg tablet 2 mg PO DAILY 09/07/24 10/17/24 10/17/24 07:00 History polyethylene glycol 3350 17 gram 17 g PO DAILY constipation 09/07/24 10/17/24 Unknown History oral powder packet (Miralax) ropinirole 1 mg tablet 1 mg PO .COMPLEX 09/07/24 10/17/24 10/17/24 07:00 History 1 mg acetaminophen 500 mg tablet 1,000 mg PO HS 10/17/24 10/17/24 10/16/24 History melatonin 3 mg capsule 18 mg PO DAILY 10/17/24 10/17/24 10/16/24 21:00 History 18 mg Allergies Allergy/AdvReac Type Severity Reaction Status Date / Time abatacept AdvReac Flushing Verified 10/17/24 09:17 PMFSH Past Medical History Medical History (Updated 10/17/24 @ 18:47 by Fatou Ware MD) CKD (chronic kidney disease) BPH (benign prostatic hyperplasia) Overactive bladder Pneumonitis BPH (benign prostatic hyperplasia) Dementia due to Parkinson's disease Recurrent falls Parkinson disease Hypothyroidism Rheumatoid arthritis Gastroesophageal reflux disease Hiatal hernia with gastroesophageal reflux disease and esophagitis Barretts esophagus Dysphagia Hypertension Rheumatoid arthritis of unspecified site with involvement of other organs and systems Carpal tunnel syndrome on both sides Obstructive sleep apnea With sleep study in 2020 recommending BiPAP RLS (restless legs syndrome) Chronic obstructive pulmonary disease Mild emphysematous changes noted on CT scan 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 Arthritis CHF (congestive heart failure) Echo May 2020: Normal left ventricular systolic function EF 69%, moderate concentric left ventricular hypertrophy, mild left ventricular enlargement, paradoxical septal motion consistent with bundle branch block, diastolic dysfunction grade 1, technically difficult study Coronary artery disease Surgical History Surgical History History of dental sabianism Dental implants Status post open reduction with internal fixation of fracture Knee cap Hx of cholecystectomy Status post cataract extraction of both eyes with insertion of intraocular lens History of Osvaldo fundoplication History of tonsillectomy and adenoidectomy History of uvulopalatopharyngoplasty H/O eye surgery Left eye to correct double vision History of four vessel coronary artery bypass graft Family History Family History Father Acute myocardial infarction, Onset Age: 84 Family history of coronary artery disease, Onset Age: 84 Mother Carcinoma of colon, Onset Age: 64 Sibling Family history of coronary artery disease Carcinoma of colon Social History Social History Social History: The patient sold his house in moved in with his daughter after the patient's in 2019. He was 59 years prior to his 's . He ambulates with a walker and/or cane. He used to smoke 5 or 6 cigars a day but quit in 2014. He denies any alcohol use. 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 The patient and his raised 2 of her own children and also raise the patient's sister who was 30 years younger. They took custody of the patient's sister when she was 16 after his mother had . Code status: Full code (however he would not want to be on ventilator for long- term, have a tracheostomy or a feeding tube.) Healthcare power of trial attorney: Daughter Smoking packs per day: 1 Smoking cigarettes per day: 20.0 Years smoked: 25 Smoking pack-years: 25.00 Smoking status: Former smoker Tobacco type: cigars Smoking end date: 05/11/14 Alcohol intake: former Substance use: never Substance use type: does not use Do You Feel Safe in your Home?: Yes Lack of Transportation: No Lack of Food: Never True Current Housing: I Have Housing Concerned About Future Housing: No Difficulty Paying Gas/Electric Bills: No Difficulty Paying for Meds: No Currently Unemployed: No Education: Trade/Vocational Certificate Difficulty w/ Childcare or Family Care: No Living arrangements: with family Additional living arrangements comments: WITH DAUGHTER Occupation/Education: retired Gender identity (if verbalized by the patient): Male Sexual Orientation (if Verbalized by the Patient): Straight or Heterosexual Spiritual care concerns: No Exam 2 Const: General: no acute distress and alert Nutritional Appearance: well nourished Orientation/consciousness: patient oriented x3 HENMT: Head: normal to inspection Eyes: EOM: EOMs intact bilaterally Resp: Effort & Inspection: normal respiratory effort Auscultation: clear to auscultation bilaterally Cardio: Rate: regular rate Rhythm: regular rhythm Heart sounds: Murmur heart sound present GI: GI Palp: Yes Soft to palpation, No Tenderness to palpation present (GI), No Guarding due to palpation present (GI) and No Rigid due to palpation A uscultation: normal bowel sounds Skin: General skin exam: normal color Rashes: no rashes Wounds: no wounds Neuro: General: patient oriented x3 and moves all extremities Cranial nerves: Yes Nystagmus not present Extrem: General: normal to inspection Psych: Mental Status: mental status grossly normal Affect: normal affect Attitude: cooperative Course Reevaluation(s) Reevaluation #1: PAtient reports his chest pain has resolved Date: 10/17/24 Time: 11:00 Consultations Consultation #1: I spoke with hospitalist Dr. Catherine who accepts patient to IMU for chest pain evaluation. Troponin negative at this time. Chest pain free at this time Date: 10/17/24 Time: 11:31 Consultation #2: I spoke with Dr. Toro with cardiology who agrees to consult for chest pain. Chest pain free at this time Date: 10/17/24 Time: 12:15 Vital Signs Vital signs: Vital Signs Temperature 97.6 F 10/17/24 09:13 Pulse Rate 70 10/17/24 09:13 Respiratory Rate 17 10/17/24 09:13 Blood Pressure 171/78 H 10/17/24 09:13 Pulse Oximetry 96 10/17/24 09:13 Oxygen Delivery Room Air 10/17/24 09:13 Temperature 97.7 F 10/17/24 16:00 Pulse Rate 66 10/17/24 16:00 Respiratory Rate 16 10/17/24 16:00 Blood Pressure 113/56 L 10/17/24 16:00 Pulse Oximetry 97 10/17/24 16:00 Oxygen Delivery Room Air 10/17/24 09:13 MDM - Chest Pain Differential Diagnosis Differential diagnosis: Likely unstable angina pectoris, atypical chest pain, costochondritis, chest pain and other (NSTEMI) Medical Records Data Attestation: I reviewed the patient's medical records. Lab Data Attestation: I reviewed the patient's lab results. 10/17/24 09:22 10/17/24 09:22 Labs: Lab Results 10/17/24 10/17/24 Range/Units 09:22 12:59 WBC 4.9 (4.5-10.0) K/mm3 RBC 3.89 L (4.6-6.20) M/mm3 Hgb 12.7 L (14.0-18.0) g/dL Hct 38.4 L (42.0-52.0) % MCV 98.7 (80-100) fl MCH 32.6 (26-34) pg MCHC 33.1 (32-36) g/dl RDW 12.4 (11.5-14.5) % Plt Count 150 (150-375) k/mm3 MPV 10.4 (7.4-10.4) fl Immature Gran % (Auto) 0.2 (0-0.5) % Neut % (Auto) 59.3 (45.5-73.1) % Lymph % (Auto) 24.9 (18.3-44.2) % [place] % (Auto) 11.7 H (2.6-8.5) % Eos % (Auto) 2.9 (0-4.4) % Baso % (Auto) 1.0 (0.2-1.2) % Lymph # (Auto) 1.22 (0.9-3.2) K/mm3 [place] # (Auto) 0.6 (0.1-0.6) K/mm3 Eos # (Auto) 0.1 (0-0.3) K/mm3 Baso # (Auto) 0.1 (0.0-0.1) K/mm3 Abs Immat Gran (auto) 0.01 (0.00-0.031) K/mm3 Absolute Neuts (auto) 2.9 (1.3-6.7) K/mm3 Absolute Nucleated RBC 0.000 (0.0-0.012) K/mm3 Nucleated RBC % 0.0 (0.0-0.2) % PT 13.1 (11.1-14.7) Seconds INR 1.0 APTT 29.4 (22.3-36.8) Seconds Sodium 138 (137-145) mmol/L Potassium 4.0 (3.4-5.0) mmol/L Chloride 103 (98-107) mmol/L Carbon Dioxide 28 (22-30) mmol/L Anion Gap 7 (4-12) mmol/L BUN 31 H (9-20) mg/dL Creatinine 1.15 (0.7-1.3) mg/dL Estim Creat Clear Calc 40 ml/min Estimated GFR 60 (59 - ) Glucose 101 (65-110) mg/dL Hemoglobin A1c 5.4 (<5.7) % Calcium 9.1 (8.4-10.2) mg/dL Total Bilirubin 0.5 (0.2-1.3) mg/dL AST 28 (17-59) U/L ALT 11 (6-50) U/L Alkaline Phosphatase 139 H (38-126) U/L Troponin I 0.019 0.150 H* D (0.000-0.034) ng/mL Total Protein 7.3 (6.3-8.2) g/dL Albumin 4.3 (3.5-5.1) g/dL Lipase 31 (23-300) U/L Imaging Data Radiologist's impression: ITS Impressions Chest X-Ray 10/17/24 09:55 Impression: Clear lungs. Status post CABG. ECG Data EKG #1: Attestation: I personally reviewed and interpreted this ECG as follows: ECG completion date: 10/17/24 ECG completion time: 09:18 EKG Interpretation: normal rate (69), sinus rhythm, RBBB and left axis Critical Care Time Critical Care Time Critical Care Time: Yes Total Critical Care Time: 40 Discharge Plan Discharge Clinical Impression: Chest pain Patient Disposition: Still a Patient Condition: Guarded Prognosis Quality HEART score for chest pain patients History: highly suspicioius ECG: non specific repolarization disturbance/LBTB/PM Age: > or = to 65 years Risk factors: > or = to 3 risk factors of atherosclerotic disease Troponin: < or = to 1x normal limit Heart score: 7
[2024-10-17 09:54] LABS: Troponin I 0.019 ng/mL (0.000-0.034)
[2024-10-17] MEDS: MORPHINE SULFATE (*CRX) 2 MG/ML INJ IV PUSH (10:22)
[2024-10-17] MEDS: ONDANSETRON INJ 4 MG/2 ML VIAL IV PUSH (10:22)
--- NOTE | 2024-10-17 10:54 | PC.NURSE ---
Patient states chest pressure is pretty much gone so nitro paste held
--- OUTSIDE RECORDS SUMMARY | 2024-10-17 11:13 | XMS_ITS | Encounter Summary ---
Author Organization [facility] Address [address] [place] [address] Phone Care Team Providers Care Pressure Welder Name Role Phone Jaime Buck MD Primary Care Provider [phone] Carlo Martinez DO Unavailable [phone] Reason for Visit * Reason Comments Medication Refill Encounter Details Date Type Department Care Team (Late st Contact Info) Description 07/02/2020 Refill [facility] - [facility]rology - [place] #1 [place] [address] Hitesh Enciso MD [address] [place] [address] Medication Refill Social History Tobacco [...] on filedocumented in this encounter Care Teams Pressure Welder Relationship Specialty Start Date End Date Jaime Buck MD [address] [place] [address] PCP - General Family Medicine 03/29/15 Carlo Martinez DO [address] [place] [address] Gastroenterology 03/29/15 documented as of this encounter
--- OUTSIDE RECORDS SUMMARY | 2024-10-17 11:13 | XMS_ITS | Clinical Summary ---
Author Organization [facility] Address [address] [place] [address] [address] [place] [address] Phone Care Team Providers Care School Guidance Counselor Name Role Phone Jaime Buck MD Primary Care Provider [phone]- [phone] Carlo Martinez DO Unavailable [phone] Allergies Active Allergy Reactions Criticality Noted [...] 93 kg (205 lb) 05/28/2020 9:09 AM FIRST BEATER Adarsh bal Height 170.2 cm (5' 7) 05/28/2020 9:09 AM FIRST BEATER Body Mass Index 32.11 05/28/2020 9:09 AM FIRST BEATER Plan of Treatment Health Maintenance Due Date [...] age to complete this topic [facility] Advance Directives Documents on File Type Date Recorded Patient Well Service Floor Worker Expl anation POLST/POST/[place] DNR 01/04/2020 2:54 PM POLST 10/20/2018 Care Teams School Guidance Counselor Relationship Specialty Start Date End Date Jaime Buck MD [address] [place] [address] PCP - General Family Medicine 03/29/15 Carlo Martinez DO [address] [place] [address] Gastroenterology 03/29/15
--- OUTSIDE RECORDS SUMMARY | 2024-10-17 11:13 | XMS_ITS | Clinical Summary ---
Author Organization [facility] [employer] Address [address] [facility] [place] [address] Care Team Providers Care Quality Control Tech Raw Materials Name Role Phone Mateus Johnson DO Primary Care Provider [phone] Source Comments [facility] [employer],non-owned Affiliates and Associated Physician Practices is amultiple site organization consisting of ambulatory clinics and hospital sitesin [place], [place] and [place]. This disclosure is being madepursuant to the Care Everywhere program and may not contain all information available regarding this patient. Last updated 18.[facility] [employer] Allergies Active Allergy Reactions Criticality Noted Date [...] Comments Blood Pressure 132/63 05/13/2024 9:50 AM UPLANDS DIVISION DIRECTOR Pulse 55 05/13/2024 9:50 AM UPLANDS DIVISION DIRECTOR Temperature 36.3 C (97.3 F) 05/13/2024 9:50 AM UPLANDS DIVISION DIRECTOR Respiratory Rate 18 05/13/2024 9:50 AM UPLANDS DIVISION DIRECTOR Oxygen Saturation 98% 05/13/2024 9:50 AM UPLANDS DIVISION DIRECTOR Inhaled Oxygen Concentration - - Weight 82.1 kg (181 lb) 05/13/2024 4:36 AM UPLANDS DIVISION DIRECTOR Height 157.5 cm (5' 2) 05/13/2024 4:36 AM UPLANDS DIVISION DIRECTOR Body Mass Index 33.11 05/13/2024 4:36 AM UPLANDS DIVISION DIRECTOR Plan of Treatment Health Maintenance Due Date [...] to complete this topic Insurance MEDICARE [facility]IC[facility] Advance Directives Documents on File Type Date Recorded 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
--- OUTSIDE RECORDS SUMMARY | 2024-10-17 11:13 | XMS_ITS | Referral Summary ---
Author Organization [facility] [address] Address [address] [place] [address] Care Team Providers Care Contact Center Director Name Role Phone Tristin HSU MD, Ochoa Maddox Unavailable [phone] Theresa Plasencia DPT Unavailable [phone] Jenni Ochoa MD Unavailable [phone] Joann HSU MD PhD, Benito Palafox Unavailable Ez Ansari MD Unavailable [phone] Jevon Mohr MD Unavailable Neyda Ba NP Primary Care Provider Nehal Price MD Unavailable Encounters Date Type Department Care Team Description 08/26/2024 4:30 PM CDT Office Visit [facility] Movement Disorders [address] [facility] 7th [place] [address] Benito David III, MD PhD 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 [address] [place] [address] Georges Wallis MD Pain of finger of left hand (Primary Dx) 08/11/2024 Results Follow-Up [facility] Cardiology [address] [place] [address] Jevon Mohr MD Basic metabolic panel 08/01/2024 Telephone [facility] Cardiology [address] [place] [address] Jevon Mohr MD 07/18/2024 9:15 AM CDT Office Visit [facility] Hand Surgery [facility] [address] [place] [address] Georges Wallis MD Pain of finger of left hand (Primary Dx) from Last 3 Months Allergies Active Allergy [...] 1 tablet (75 mcg total) by mouth taxicab coordinator before breakfast 3 9 Active hydrOXYchloroQU INE [...] (12/24/2021): Added automatically from request for surgery [id number] Abnormal CT scan, gastrointestinal tract 022 Overview (12/18/2021): Added automatically from request for surgery [id number] Diplopia 08/28/2021 Bilateral lower extremity edema 10/26/2020 [...] he has had a swallow study with CONDENSER WINDER in 2020. We have discussed another swallow [...] for RBD, if needed. Follow-up with your synthetic department supervisor. We discussed evaluation with Sleep Medicine, if desired. We discussed follow-up with [facility], Dr. Montero, if needed. Return to [...] he has had a swallow study with CONDENSER WINDER in 2020. We discussed another swallow evaluation, but they prefer to hold off. Diplopia has extensively evaluated by Neuro-Ophtalmology (Dr. Montero), and is suspected to be PD-related. I recommend the following: Continue carbidopa/levodopa. Okay to take extra tab before horseshoe games. Cut back ropinirole from 6 tabs [...] wonder if this is related to adverse ADMINISTRATIVE ASSISTANT effects of these medications. He can try [...] he has had a swallow study with CONDENSER WINDER in 2020. We discussed another swallow evaluation, [...] prefer to hold off. He has APDA Weditube channel exercises. Can try caffeine for daytime [...] with applesauce, pudding or yogurt; or dissolving noe-gwis-xsbbjp pills in OJ or grape juice. No [...] 6a/12p/6p; may try 1 extra tab before horsesSapiens International games. Same ropinirole, if hallucinations worsen, we will decrease this. Continue gabapentin. Continue carbamazepine 200mg twice a day Start APDA youtube channel exercises. Referral to Physical Therapy. 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 Could try caffeine for daytime sleepiness. Assessment & Plan (04/28/2022 3:53 PM SCADA TECHNICIAN): PD remains well controlled on his current [...] twice a day 5. Follow-up with your Neuro-Racket Stringer 6. Referral to Physical Therapy Assessment & [...] Cxr neg 02/24 Gaye + 1:40 on 10 RF, CCP neg 10 On leflunomide 20 mg q.d.. Routine labs today. Assessment & Plan (10/28/2017 11:51 AM CDT): Cxr neg 02/24 Gaye + 1:40 on 02/24 RF, CCP neg 10/ Rheumatoid arthritis of [facility] without rheumatoid factor 02/27/2017 Overview (02/17/2018): Cxr neg / Gaye + 1:40 on 10/ RF, CCP neg 1017 On arava 20 mg QD. If doing [...] related to a rheumatological cause. Has seen corset maker and keyboard action assembler for this issue. Assessment & Plan (12/31/2017 [...] in sister. Coronary artery disease invo lving paiute-shoshone coronary artery of pai[place]shoshone heart without angina pectoris 12/19/2016 Essential hypertension 12/19/2016 MOSHER (dyspnea on exertion) 12/19/2016 Assessment & Plan (03/05/2018 12:49 PM CDT): Patient having shortness of breath with walking and talking. Has stopped Ellipta inhaler, but still has albuterol inhaler prn. Advised to follow up with synthetic department supervisor. Urticaria, unspecified 08/21/2016 Erectile dysfunction due to [...] on file Legal Sex Male 7:30 PM SCADA TECHNICIAN Gender Identity Not on file Sexual Orientation Not on file Last Filed Vital Signs Vital Sign Reading Time Taken Comments Blood Pressure 131/69 08/26/2024 3:57 PM CDT Pulse 63 08/26/2024 3:57 PM CDT Temperature 36.1 C (97 F) 06/21/2024 11:15 AM SCADA TECHNICIAN Respiratory Rate 18 06/21/2024 11:50 AM SCADA TECHNICIAN Oxygen Saturation 95% 06/30/2024 1:07 PM SCADA TECHNICIAN Inhaled Oxygen Concentration - - Weight 83.5 kg (184 lb) 08/26/2024 3:57 PM CDT Height 160 cm (5' 3) 08/26/2024 3:57 PM CDT Body Mass Index [...] LAB BLOOD ORDERABLES Baylee jones Result [facility] [address] [place] [address] from Last 3 Months Insurance MEDICARE [employer] [place] MEDICARE [facility] MEDICARE [facility] MEDICARE SUPPLEMENT MEDICARE [facility] MEDICARE SUPPLEMENT Advance Directives For more information, please contact: [phone] Documents on File Type Date Recorded Patient Automatic Machine Attendant Expl anation Power of Indirect Fire Infantryman 06/13/2024 9:34 AM * Full Code (Latest Code Status on File) Date Activated Date Inactivated Comments 12/24/2021 8:42 AM 12/24/2021 4:15 PM Care Teams Contact Center Director Relationship Specialty Start Date End Date Jesenia Neyda BlumABHISHEK Alex [address] [place] [address] PCP - General Nurse Practitioner 06/15/24 Ochoa Crow III, MD [address] [place] [address] Consulting Physician Rheumatology 04/09/17 Theresa Plsaencia DPT [address] [place] [address] Physical Therapist Physical Therapy 11/23/20 Jenni Ochoa MD [address] [place] [address] Consulting Physician Rheumatology 11/26/21 Benito David III, MD PhD [address] [place] [address] Neurologist Neurology 11/26/21 Ez Ansari MD [address] [place] [address] Consulting Physician Ophthalmology 11/26/21 Jevon Mohr MD [address] [place], [place] [address] Coal Chute Worker Cardiology 11/26/21 Nehal Price MD [address] [facility] [address] [place] [address] Consulting Physician Pulmonary Disease 06/15/24
--- OUTSIDE RECORDS SUMMARY | 2024-10-17 11:13 | XMS_ITS | Encounter Summary ---
Author Organization [facility] Address [address] [place] [address] Phone Care Team Providers Care Well Flow Operator Name Role Phone Jaime Buck MD Primary Care Provider [phone] Carlo Martinez DO Unavailable [phone] Reason for Visit * Reason Comments Medication Refill Encounter Details Date Type Department Care Team (Late st Contact Info) Description 01/07/2021 Refill [facility] - Neurology [facility] [address]2 [place] [address] Hitesh Enciso MD [address]2 [place] [address] Medication Refill Social History Tobacco Use Types [...] on filedocumented in this encounter Care Teams Well Flow Operator Relationship Specialty Start Date End Date Jaime Buck MD [address] [place] [address] PCP - General Family Medicine 03/29/15 Carlo Martinez DO [address] [place] [address] Gastroenterology 03/29/15 documented as of this encounter
--- OUTSIDE RECORDS SUMMARY | 2024-10-17 11:13 | XMS_ITS | Encounter Summary ---
Author Organization [facility] Healthcare Address [address] [place] [address] Care Team Providers Care Outside Dealer Sales Representative Name Role Phone Jaime Buck MD Primary Care Provider [phone] Tristin HSU MD, Ochoa Maddox Unavailable [phone] Janet Meier MD Unavailable [phone] Peewee Dalton INKER Primary Care Provider [phone] Jessica Melendez DETASSELING CREW SUPERVISOR Unavailable [phone] Theresa Plasencia DPT Unavailable [phone] Dawna Lara DETASSELING CREW SUPERVISOR Unavailable [phone] Jenni Ochoa MD Unavailable [phone] Joann HSU MD PhD, Benito Palafox Unavailable Ez Ansari MD Unavailable [phone] Jevon Mohr MD Unavailable [phone] Vipul Palomo MD Primary Care Provider [phone] Neyda Ba INKER Primary Care Provider [phone] Nehal Price MD Unavailable [phone] Encounter Details Date Type Department Care Team (Late st Contact Info) Description 08/25/2018 Telephone [facility] Radiology 1 [place] [address] Kustra, Ella Zina, RN Social [...] on file Legal Sex Male 7:30 PM ENGINE SPECIALIST Gender Identity Not on file Sexual Orientation Not on file documented as of this encounter Plan of Treatment Not on file documented as of this encounter Visit Diagnoses Not on filedocumented in this encounter Care Teams Outside Dealer Sales Representative Relationship Specialty Start Date End Date Jaime Buck MD [address] [place] [address] PCP - General 08/08/16 05/21/20 Peewee Dalton NP [address] [facility] [place] [address] PCP - General Nurse Practitioner 05/22/20 07/20/23 Vipul Palomo MD [address] [facility] [address] [facility] [address] [place] [address] PCP - General Family Practice 07/21/23 06/14/24 Neyda Ba NP [address] [facility] [address] [place] [address] PCP - General Nurse Practitioner 06/15/24 Ochoa Crow III, MD [address] [place] [address] Consulting Physician Rheumatology 04/09/17 Janet Meier MD [address] [place] [address] Referring Physician Pulmonary Disease 05/12/18 06/14/24 Jessica Melendez, DETASSELING CREW SUPERVISOR [address] [facility] [address] [place] [address] Speech Language Pathologist Speech Therapy 10/25/20 12/17/20 Theresa Plasencia DPT [address] [facility] [address] [place] [address] Physical Therapist Physical Therapy 11/23/20 Dawna Lara, DETASSELING CREW SUPERVISOR [address] [facility] [address] [place] [address] Speech Language Pathologist Speech Therapy 12/18/20 02/18/21 Jenni Ochoa MD [address] [facility] [address] [place] [address] Consulting Physician Rheumatology 11/26/21 Benito David III, MD PhD [address] [facility] [address] [place] [address] Neurologist Neurology 11/26/21 Ez Ansari MD [address] [place] [address] Consulting Physician Ophthalmology 11/26/21 Jevon Mohr MD [address] [place] [address] Wad Impregnator Cardiology 11/26/21 Nehal Price MD [address] [facility] [address] [place] [address] Consulting Physician Pulmonary Disease 06/15/24 documented as of this encounter
--- OUTSIDE RECORDS SUMMARY | 2024-10-17 11:13 | XMS_ITS | Encounter Summary ---
Author Organization [facility] Address [address] [place] [address] Phone Care Team Providers Care Nicker Name Role Phone Jaime Buck MD Primary Care Provider [phone] Carlo Martinez DO Unavailable [phone] Reason for Visit * Reason Comments Medication Refill Encounter Details Date Type Department Care Team (Late st Contact Info) Description 11/03/2020 [facility]ill [facility] - [place] [address] [place] [address] Hitesh Enciso MD [address] [place] [address] Medication Refill Social History Tobacco [...] on filedocumented in this encounter Care Teams Nicker Relationship Specialty Start Date End Date Jaime Buck MD [address] [place] [address] PCP - General Family Medicine 03/29/15 Carlo Martinez DO [address] [place] [address] Gastroenterology 03/29/15 documented as of this encounter
--- OUTSIDE RECORDS SUMMARY | 2024-10-17 11:13 | XMS_ITS | Encounter Summary ---
Author Organization [facility] Address [address] [place] [address] Phone Care Team Providers Care Block Trimmer Name Role Phone Jaime Buck MD Primary Care Provider [phone] Carlo Martinez DO Unavailable [phone] Reason for Visit * Reason Comments Medication Refill Encounter Details Date Type Department Care Team (Late st Contact Info) Description 12/14/2020 Refill [facility] - Neurology [facility] [address] [place] [address] Hitesh Enciso MD [address] [place] [address] Medication Refill Social History Tobacco Use Types [...] neuralgia documented in this encounter Care Teams Block Trimmer Relationship Specialty Start Date End Date Jaime Buck MD [address] [place] [address] PCP - General Family Medicine 03/29/15 Carlo Martinez DO [address] [place] [address] Gastroenterology 03/29/15 documented as of this encounter
--- OUTSIDE RECORDS SUMMARY | 2024-10-17 11:13 | XMS_ITS | Encounter Summary ---
Author Organization [facility] Healthcare Address [address] [place] [address] Care Team Providers Care Spa Assistant Manager Name Role Phone aJime Buck MD Primary Care Provider [phone] Tristin HSU MD, Ochoa Maddox Unavailable [phone] Janet Meier MD Unavailable [phone] Peewee Dalton HALL PORTER Primary Care Provider [phone] Jessica Melendez INDUSTRIAL SOCIOLOGIST Unavailable [phone] Theresa Plasencia DPT Unavailable [phone] Dawna Lara INDUSTRIAL SOCIOLOGIST Unavailable [phone] Jenni Ochoa MD Unavailable [phone] Joann HSU MD PhD, Benito Palafox Unavailable Ez Ansari MD Unavailable [phone] Jevon Mohr MD Unavailable [phone] Vipul Palomo MD Primary Care Provider [phone] Neyda Ba HALL PORTER Primary Care Provider [phone] Nehal Price MD Unavailable [phone] Encounter Details Date Type Department Care Team (Late st Contact Info) Description 09/15/2018 Telephone [facility] Radiology 1 [place] [address] Kustra, Ella Zina, RN Social [...] on file Legal Sex Male 7:30 PM BALANCE ENGINEER Gender Identity Not on file Sexual Orientation Not on file documented as of this encounter Plan of Treatment Not on file documented as of this encounter Visit Diagnoses Not on filedocumented in this encounter Care Teams Spa Assistant Manager Relationship Specialty Start Date End Date Jaime Buck MD [address] [place] [address] PCP - General 08/08/16 05/21/20 Peewee Dalton NP [address] [facility] 1 [facility] 1 [place] [address] PCP - General Nurse Practitioner 05/22/20 07/20/23 Vipul Palomo MD [address] [facility] [address] [facility], [address] [place] [address] PCP - General Family Practice 07/21/23 06/14/24 Neyda Ba NP [address] [facility] [address] [place] [address] PCP - General Nurse Practitioner 06/15/24 Ochoa Crow III, MD [address] [place] [address] Consulting Physician Rheumatology 04/09/17 Janet Meier MD [address] [place] [address] Referring Physician Pulmonary Disease 05/12/18 06/14/24 Jessica Melendez, INDUSTRIAL SOCIOLOGIST [address] [facility] [address] [place] [address] Speech Language Pathologist Speech Therapy 10/25/20 12/17/20 Theresa Plasencia DPT [address] [facility] [address] [place] [address] Physical Therapist Physical Therapy 11/23/20 Dawna Lara, INDUSTRIAL SOCIOLOGIST [address] [facility] 1 [address] [place] [address] Speech Language Pathologist Speech Therapy 12/18/20 02/18/21 Jenni Ochoa MD [address] [facility] 1 [address] [place] [address] Consulting Physician Rheumatology 11/26/21 Benito David III, MD PhD [address] [facility] [address] [place] [address] Neurologist Neurology 11/26/21 Ez Ansari MD [address] [place] [address] Consulting Physician Ophthalmology 11/26/21 Jevon Mohr MD [address] [place] [address] Risk Management Professional Cardiology 11/26/21 Nehal Price MD [address] [facility] [address] [place] [address] Consulting Physician Pulmonary Disease 06/15/24 documented as of this encounter
--- OUTSIDE RECORDS SUMMARY | 2024-10-17 11:13 | XMS_ITS | Continuity of Care Document ---
Author Organization [facility] Address [address] [place] [address] [place] [address] Phone Care Team Providers Care Cold Storage Superintendent Name Role Phone Will Elias Unavailable Unavailable [...] Copied on Encounter Office/outpat ient Visit, [facility], [address] [place] [address] [address], [place], [place], [id number], [place] tel:[phone] [facility] No Information 5-201 0 Krishnasamy Will. [address] [facility] 102, [place], [place], [facility], [place]. tel:[phone] [facility], [address] [place] [address] [address], [place], [place], [id number], [place] tel:[phone] [facility] No Information 2-200 9 Krishnasamy Will. [address] [facility] 102, [place], [address], [place]. tel:[phone] Referring Provider: Will garcía [address] [facility] [address], [place], [place], [facility]. tel:[phone] Office/outpat ient Visit, [facility], [address] [place] [address] [address], [place], [place], [id number], tel:[phone] [facility] No Information Jan-0 3-200 9 Krishnasamy Will. [address] [facility] 102, [place], [place], [facility], . tel:[phone] Referring Provider: Carlo Blum, [address] [place] [address] [address], [place], [place], [facility]. tel:[phone] Office/outpat ient Visit, [facility], [address] [place] [address] [address], [place], [place], [id number], tel:[phone] [facility] No Information 7[address] Tran OD Carlo. [address] [place] [address] , [address], [place], [place], [facility], . tel:[phone] [facility], [address] [place], [place] [address], [place], [place], [id number], tel:[phone] [facility] No Information 9-200 9 Krishnasamy Will. Count includes the [facility] 102, [place], [place], [facility], . tel:[phone] Family History Family Member Type Diagnosis Age At Onset No Information Payers Payer name Insurance type Covered democrat ID Authoriza tion(s) Medicare [facility] [id number] [place]BS [place] Commercial BL [id number] Social History Type Description Quantity Date Captured [...]
--- OUTSIDE RECORDS SUMMARY | 2024-10-17 11:13 | XMS_ITS | Clinical Summary ---
Author Organization [employer] [id number] [facility] Address [address] [place] [address] Care Team Providers Care Warp Drawer Name Role Phone Jaime Buck MD Primary Care Provider [phone] Allergies Active Allergy Reactions Criticality Noted Date [...] 02/18/2017, 05/11/2009 Medical Devices Implanted Type Area Investment Specialist Device Identifier Shelf Expiration Date Model / Serial / Lot Hemostatic Surgiflo 8ml W/Thrombin 2994 - [id number] Implanted:Qty: 1 on 05/18/2019 by Tani Mcleod MD at [facility] N/A: Spine Lumbar [employer] 03/10/2020 [id number] / / [id number] Insurance [address] [id number] MEDICARE PART A AND B [facility] Advance Directives For more information, please contact: [phone] * Full Code (Latest Code Status on File) Date Activated Date Inactivated Comments 02/28/2022 11:10 AM 02/28/2022 5:54 PM * Full Code Date Activated Date Inactivated Comments 05/18/2019 10:00 AM 05/18/2019 3:39 PM Care Teams Warp Drawer Relationship Specialty Start Date End Date Jaime Buck MD [address] [place] [address] PCP - General Family Practice 03/08/19
--- OUTSIDE RECORDS SUMMARY | 2024-10-17 11:13 | XMS_ITS | Encounter Summary ---
Author Organization [facility] Address [address] [place] [address] Phone Care Team Providers Care Asphalt Paving Superintendent Name Role Phone Jaime Buck MD Primary Care Provider [phone] Carlo Martinez DO Unavailable [phone] Reason for Visit * Reason Comments Medication Refill Encounter Details Date Type Department Care Team (Late st Contact Info) Description 08/14/2020 Refill [facility] - [place] [address]1 [place] [address] Hitesh Enciso MD [address]2 [place] [address] Medication Refill Social History Tobacco [...] on filedocumented in this encounter Care Teams Asphalt Paving Superintendent Relationship Specialty Start Date End Date Jaime Buck MD [address] [place] [address] PCP - General Family Medicine 03/29/15 Carlo Martinez DO [address] [place] [address] Gastroenterology 03/29/15 documented as of this encounter
--- OUTSIDE RECORDS SUMMARY | 2024-10-17 11:13 | XMS_ITS | Encounter Summary ---
Author Organization [facility] Address [address] [place] [address] Phone Care Team Providers Care Flight Dynamicist Name Role Phone Jaime Buck MD Primary Care Provider [phone] Carlo Martinez DO Unavailable [phone] Reason for Visit * Reason Comments Medication Refill Encounter Details Date Type Department Care Team (Late st Contact Info) Description 09/05/2020 Refill [facility] - Neurology - [place] [address] [place] [address] Hitesh Enciso MD [address] [place] [address] Medication Refill Social History Tobacco [...] neuralgia documented in this encounter Care Teams Flight Dynamicist Relationship Specialty Start Date End Date Jaime Buck MD [address] [place] [address] PCP - General Family Medicine 03/29/15 Carlo Martinez DO [address] [place] [address] Gastroenterology 03/29/15 documented as of this encounter
--- OUTSIDE RECORDS SUMMARY | 2024-10-17 11:13 | XMS_ITS | Encounter Summary ---
Author Organization [facility] Address [address] [place] [address] Phone Care Team Providers Care Garment Mender Name Role Phone Jaime Buck MD Primary Care Provider [phone] Carlo Martinez DO Unavailable [phone] Reason for Visit * Reason Comments Medication Refill Encounter Details Date Type Department Care Team (Late st Contact Info) Description 09/29/2020 Refill [facility] - Neurology - [place] [address] [place] [address] Hitesh Enciso MD [address] [place] [address] Medication Refill Social History Tobacco [...] on filedocumented in this encounter Care Teams Garment Mender Relationship Specialty Start Date End Date Jaime Buck MD [address] [place] [address] PCP - General Family Medicine 03/29/15 Carlo Martinez DO [address] [place] [address] Gastroenterology 03/29/15 documented as of this encounter
--- OUTSIDE RECORDS SUMMARY | 2024-10-17 11:13 | XMS_ITS | Encounter Summary ---
Author Organization [facility] Address [address] [place] [address] Phone Care Team Providers Care Hair And Makeup Designer Name Role Phone Jaime Buck MD Primary Care Provider [phone] Carlo Martinez DO Unavailable [phone] Reason for Visit * Reason Comments Medication Refill Encounter Details Date Type Department Care Team (Late st Contact Info) Description 05/19/2021 Refill [facility] - Gastroenterology - [place] [address] [place] [address] Tashia Aguilar October, PAC [address] [place] [address] Medication Refill Social History Tobacco Use Types [...] Deanna Lake RN - 05/21/2021 4:28 PM SUPERINTENDENT CAR CONSTRUCTION Medication refilled and signed per [facility] chronic medication standing order for pediatric and adult patients. [employer]INTENDENT CAR CONSTRUCTION * Telephone Encounter - Deanna Lake RN - 05/21/2021 4:21 PM SUPERINTENDENT CAR CONSTRUCTION Pharmacy requesting refill of: Requested Prescriptions Pending Prescriptions Disp Refills ??? famotidine (PEPCID) 20 MG Tablet [Pharmacy Med Name: FAMOTIDINE 20MG TABLETS] 180 Tablet 3 Sig: TAKE 1 TABLET BY MOUTH TWICE DAILY Last fill: 05/28/2020 Patients last OV with GI: telemedicine office visit on 05/28/2020 Next Office Visit with GI: None scheduled. Called patient, offered an appt. Patient scheduled 06/03/2021. RINTENDENT CAR [employer]STRU[employer] documented in this encounter Plan of Treatment Not on file documented as of this encounter Visit Diagnoses Diagnosis Gastroesophageal reflux disease with esophagitis without hemorrhage documented in this encounter Care Teams Hair And Makeup Designer Relationship Specialty Start Date End Date Jaime Buck MD [address] [place] [address] PCP - General Family Medicine 03/29/15 Carlo Martinez DO [address] [place] [address] Gastroenterology 03/29/15 documented as of this encounter
--- OUTSIDE RECORDS SUMMARY | 2024-10-17 11:13 | XMS_ITS | Clinical Summary ---
Author Organization [facility] [place] [address] Address [address] [place] [address] Care Team Providers Care Fish Rod Maker Name Role Phone Tristin HSU MD, Ochoa Maddox Unavailable [phone] Theresa Plasencia DPT Unavailable [phone] Jenni Ochoa MD Unavailable [phone] Joann HSU MD PhD, Benito Palafox Unavailable Ez Ansari MD Unavailable [phone] Jevon Mohr MD Unavailable [phone] Neyda Ba NP Primary Care Provider [phone] Nehal Price MD Unavailable [phone] Allergies Active Allergy Reactions Criticality Noted Date [...] 1 tablet (75 mcg total) by mouth receiver setter before breakfast 3 9 Active hydrOXYchloroQU INE [...] (12/24/2021): Added automatically from request for surgery [id number] Abnormal CT scan, gastrointestinal tract 022 Overview (12/18/2021): Added automatically from request for surgery [id number] Diplopia 08/28/2021 Bilateral lower extremity edema 10/26/2020 [...] he has had a swallow study with [employer] in 2020. We have discussed another swallow [...] for RBD, if needed. Follow-up with your superintendent board mill. We discussed evaluation with Sleep Medicine, if [...] he has had a swallow study with [employer] in 2020. We discussed another swallow evaluation, but they prefer to hold off. Diplopia has extensively evaluated by Neuro-Ophtalmology (Dr. Montero), and is suspected to be PD-related. I recommend the following: Continue carbidopa/levodopa. Okay to take extra tab before [employer] games. 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 He can try [...] he has had a swallow study with [employer] in 2020. We discussed another swallow evaluation, [...] with applesauce, pudding or yogurt; or dissolving gnx-xibr-xccweo pills in OJ or grape juice. No [...] 6a/12p/6p; may try 1 extra tab before [employer] games. Same ropinirole, if hallucinations worsen, we will decrease this. Continue gabapentin. Continue carbamazepine 200mg twice a day Start APDA youtube channel exercises. Referral to Physical Therapy. 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 Could try caffeine for daytime sleepiness. Assessment & Plan (04/28/2022 3:53 PM CAREER AND TECHNOLOGY EDUCATION TEACHER): PD remains well controlled on his current [...] twice a day 5. Follow-up with your Neuro-Lime Trimmer 6. Referral to Physical Therapy Assessment & [...] CCP neg 02/24 [facility]umat[facility] without rheumatoid factor 02/27/2017 Overview [...] related to a rheumatological cause. Has seen pipe layer and employee health nurse for this issue. Assessment & Plan (12/31/2017 [...] in sister. Coronary artery disease invo lving venetie coronary artery of venetie heart without angina pectoris 12/19/2016 Essential hypertension 12/19/2016 MOSHER (dyspnea on exertion) 12/19/2016 Assessment & Plan (03/05/2018 12:49 PM CDT): Patient having shortness of breath with walking and talking. Has stopped Ellipta inhaler, but still has albuterol inhaler prn. Advised to follow up with superintendent board mill. Urticaria, unspecified 08/21/2016 Erectile dysfunction due to [...] [facility] Movement Disorders [address] [facility] [address] [place] [address] Benito David III, MD PhD Parkinson's disease without dyskinesia or fluctuating manifestations (HCC) (Primary Dx); Glossopharyngeal neuralgia; Restless legs syndrome 08/15/2024 9:45 AM CDT Office Visit [facility] Hand Surgery [address] [place] [address] [place] [phone] Georges Wallis MD Pain of finger of left hand (Primary Dx) 08/11/2024 Results Follow-Up [facility] Cardiology [address] [facility] [address] [place] [phone] Jevon Mohr MD Basic metabolic panel 08/01/2024 Telephone [facility] Cardiology [address] [facility] [address] [place] [phone] Jevon Mohr MD 07/18/2024 9:15 AM CDT Office Visit [facility] Hand Surgery [address] [place] [address] [address] [place] [address] Georges Wallis MD Pain of finger of left hand (Primary Dx) from Last 3 Months Immunizations Immunization Administration [...] 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, with psychotic disturbance ([facility]) 03/03/2024 Lung disease Hypothyroidism Anemia Family History Medical History Relation Name Comments Congenital heart disease Brother 1 Kota Crohn's disease Brother 2 Thomas Heart disease Brother 2 Thomas Coronary arter y disease; Heart attack Father Guillermo [place]; Cause of De ath: [place] Stomach cancer Mother Hilarioliian cancer, gastr ic; Cause of : cancer, [...] on file Legal Sex Male 7:30 PM CAREER AND TECHNOLOGY EDUCATION TEACHER Gender Identity Not on file Sexual Orientation Not on file Obstetrics History Last Filed Vital Signs Vital Sign Reading Time Taken Comments Blood Pressure 131/69 08/26/2024 3:57 PM CDT Pulse 63 08/26/2024 3:57 PM CDT Temperature 36.1 C (97 F) 06/21/2024 11:15 AM CAREER AND TECHNOLOGY EDUCATION TEACHER Respiratory Rate 18 06/21/2024 11:50 AM CAREER AND TECHNOLOGY EDUCATION TEACHER Oxygen Saturation 95% 06/30/2024 1:07 PM CAREER AND TECHNOLOGY EDUCATION TEACHER Inhaled Oxygen Concentration - - Weight 83.5 [...] metabolic panel (08/10/2024 11:03 AM CDT) Pathologist [facility] Glucose 94 65 - 139 mg/dL [facility] [...] LAB BLOOD ORDERABLES Baylee jones Result [facility] [id number] [address] [id number] from Last 3 Months Insurance MEDICARE [facility] MEDICARE [facility] MEDICARE [facility] MEDICARE SUPPLEMENT MEDICARE [facility] MEDICARE SUPPLEMENT Advance Directives For more information, please contact: [phone] Documents on File Type Date Recorded Patient Taxicab Dispatcher Expl anation Power of Wood Barrel Reconditioner 06/13/2024 9:34 AM * Full Code (Latest Code Status on File) Date Activated Date Inactivated Comments 12/24/2021 8:42 AM 12/24/2021 4:15 PM Care Teams Fish Rod Maker Relationship Specialty Start Date End Date Neyda Ba NP [address] [facility] [address] [place] [address] PCP - General Nurse Practitioner 06/15/24 Ochoa Crow III, MD [address] [place] [address] Consulting Physician Rheumatology 04/09/17 Theresa Plasencia DPT [address] [place] [address] Physical Therapist Physical Therapy 11/23/20 Jenni Ochoa MD [address] [place] [address] Consulting Physician Rheumatology 11/26/21 Benito David III, MD PhD [address] [place] [address] Neurologist Neurology 11/26/21 Ez Ansari MD [address] [facility] [address] [place] [address] Consulting Physician Ophthalmology 11/26/21 Jevon Mohr MD [address] [facility] [address] [facility] [address] [facility] [place] [address] Intellectual Property Manager Cardiology 11/26/21 Nehal Price MD [address] [place] [address] Consulting Physician Pulmonary Disease 06/15/24
--- NOTE | 2024-10-17 11:39 | PC.NURSE ---
assumed care of pt from antolin lynch. pt resting on stretcher, no distress at this time. family at bedside, aware of plan of care --> admission. no questions at this time
[2024-10-17] MEDS: NITROGLYCERIN OINTMENT 1 INCH DOSE TRANSDERM (11:41)
--- NOTE | 2024-10-17 12:23 | ECG_ITS ---
Test Date: 2024-10-17 12:27:22 Measurements Intervals [place] Rate: 52 P: 0 VT: 0 QRS: -48 QRSD: 140 T: 65 QT: 458 QTc: 429 Interpretive Statements SINUS BRADYCARDIA WITH 2ND DEGREE AV BLOCK, MOBITZ TYPE I ([place]BACH) RIGHT BUNDLE BRANCH BLOCK LEFT ANTERIOR FASCICULAR BLOCK CANNOT R/O SEPTAL INFARCT, AGE INDETERMINATE ABNORMAL ECG Compared to ECG 10/17/2024 09:18:18 HEART RATE HAS DECREASED 2ND DEGREE AV BLOCK NOW PRESENT Electronically Signed On 10-17-2024 12:54:25 CDT by Jyalen Mata D.O.
--- NOTE | 2024-10-17 13:56 | PM.IMHP ---
H&P: [facility] History of Present Illness Date/Time: 10/17/24 13:56 Chief Complaint: Chest pain, NSTEMI Narrative: This is an 84-year-old male patient who was admitted to the hospital for chest pain. Patient reports sitting down to drink coffee and watch the news when he developed sudden onset of left-sided chest pain that radiated to the left arm that he described as a burning sensation / on arrival. Patient took 325 mg of aspirin at home before coming to the ER. He received IV morphine in the ER which did not help and then nitropaste was applied to the right chest 1 inch which subsequently stopped the pain. Initial troponin was normal in the ER. Chest x-ray was also normal in ER. Patient admitted to the IMU with cardiology consult due to significant cardiac past history including CAD and 4 vessel CABG in 2016. Patient also has a history of Parkinson's, CKD, hypothyroidism, COPD CHF, and MADDIE on BiPAP. Due to Parkinson's patient has neuropathy, dysphagia and frequent falls. He has also had aspiration pneumonia a few times. He was recently on Levaquin but only took 6 pills because they would cause vomiting. Upon admit to the floor, repeat troponin was drawn. Glucose also noted to be somewhat high so A1c ordered. Troponin resulted with significant rise to 0.15 from 0.019. Third troponin later up to 0.760. Cardiology saw patient and plans Echocardiogram and possible cardiac cath tomorrow. Plan is to trend troponin to peak. Evening troponin up to 5.430. Patient remains pain free since pain initially subsided in ER. Review of Systems Review of Systems: All systems reviewed & are unremarkable except as noted in HPI and below [facility] Past Medical History Medical History (Updated 10/17/24 @ 18:47 by Fatou Ware MD) CKD (chronic kidney disease) BPH (benign prostatic hyperplasia) Overactive bladder Pneumonitis BPH (benign prostatic hyperplasia) Dementia due to Parkinson's disease Recurrent falls Parkinson disease Hypothyroidism Rheumatoid arthritis Gastroesophageal reflux disease Hiatal hernia with gastroesophageal reflux disease and esophagitis Barretts esophagus Dysphagia Hypertension Rheumatoid arthritis of unspecified site with involvement of other organs and systems Carpal tunnel syndrome on both sides Obstructive sleep apnea With sleep study in 2020 recommending BiPAP RLS (restless legs syndrome) Chronic obstructive pulmonary disease Mild emphysematous changes noted on CT scan 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 Arthritis CHF (congestive heart failure) Echo May 2020: Normal left ventricular systolic function EF 69%, moderate concentric left ventricular hypertrophy, mild left ventricular enlargement, paradoxical septal motion consistent with bundle branch block, diastolic dysfunction grade 1, technically difficult study Coronary artery disease Surgical History Surgical History History of dental methodist Dental implants Status post open reduction with internal fixation of fracture Knee cap Hx of cholecystectomy Status post cataract extraction of both eyes with insertion of intraocular lens History of Osvaldo fundoplication History of tonsillectomy and adenoidectomy History of uvulopalatopharyngoplasty H/O eye surgery Left eye to correct double vision History of four vessel coronary artery bypass graft Family History Family History Father Acute myocardial infarction, Onset Age: 84 Family history of coronary artery disease, Onset Age: 84 Mother Carcinoma of colon, Onset Age: 64 Sibling Family history of coronary artery disease Carcinoma of colon Social History Social History Social History: The patient sold his house in moved in with his daughter after the patient's in 2019. He was 59 years prior to his 's . He ambulates with a walker and/or cane. He used to smoke 5 or 6 cigars a day but quit in 2014. He denies any alcohol use. 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 The patient and his raised 2 of her own children and also raise the patient's sister who was 30 years younger. They took custody of the patient's sister when she was 16 after his mother had . Code status: Full code (however he would not want to be on ventilator for long-term, have a tracheostomy or a feeding tube.) Healthcare power of workers compensation defense attorney: Daughter Smoking packs per day: 1 Smoking cigarettes per day: 20.0 Years smoked: 25 Smoking pack-years: 25.00 Smoking status: Former smoker Tobacco type: cigars Smoking end date: 05/11/14 Alcohol intake: former Substance use: never Substance use type: does not use Do You Feel Safe in your Home?: Yes Lack of Transportation: No Lack of Food: Never True Current Housing: I Have Housing Concerned About Future Housing: No Difficulty Paying Gas/Electric Bills: No Difficulty Paying for Meds: No Currently Unemployed: No Education: Trade/Vocational Certificate Difficulty w/ Childcare or Family Care: No Living arrangements: with family Additional living arrangements comments: WITH DAUGHTER Occupation/Education: retired Gender identity (if verbalized by the patient): Male Sexual Orientation (if Verbalized by the Patient): Straight or Heterosexual Spiritual care concerns: No Meds Home Medications and Allergies Home Medications ?Medication ?Instructions ?Recorded ?Confirmed ?Type aspirin 81 mg tablet,delayed 81 mg PO QHS 03/23/19 10/17/24 History release (Aspir-Low) tamsulosin 0.4 mg capsule 0.4 mg PO HS 04/24/20 10/17/24 History gabapentin 300 mg capsule 300 mg PO QID 05/15/20 10/17/24 History carbamazepine 200 mg tablet 200 mg PO Q12H #60 tabs 09/14/20 10/17/24 Rx nitroglycerin 0.4 mg sublingual 0.4 mg sublingual PRN PRN Chest 10/23/22 10/17/24 History tablet Pain hydroxychloroquine 200 mg tablet 400 mg (2 x 200 mg) PO DAILY #180 06/18/23 10/17/24 Rx (Plaquenil) tabs finasteride 5 mg tablet 5 mg PO DAILY 02/01/24 10/17/24 History cyanocobalamin (vitamin B-12) 1,000 mcg PO QAM #30 tabs 03/16/24 10/17/24 Rx 1,000 mcg tablet (Vitamin B-12) levothyroxine 75 mcg tablet 75 mcg PO DAILY #90 tabs 06/15/24 10/17/24 Rx fluticasone 113 mcg-salmeterol 14 1 inh inhalation BID #1 ea 06/29/24 10/17/24 Rx mcg/actuation breath activated powdr carbidopa 25 mg-levodopa 100 mg 2 tablet PO TID 07/20/24 10/17/24 History tablet pantoprazole 40 mg tablet,delayed 40 mg PO BID 3 months #180 tabs 08/04/24 10/17/24 Rx release famotidine 20 mg tablet 20 mg PO BID 3 months #180 tabs 08/26/24 10/17/24 Rx bumetanide 1 mg tablet 2 mg PO DAILY 09/07/24 10/17/24 History polyethylene glycol 3350 17 gram 17 g PO DAILY constipation 09/07/24 10/17/24 History oral powder packet (Miralax) ropinirole 1 mg tablet 1 mg PO .COMPLEX 09/07/24 10/17/24 History albuterol sulfate 90 mcg/actuation See Rx Instructions .Route 10/04/24 10/17/24 Rx aerosol inhaler .COMPLEX #8.5 grams acetaminophen 500 mg tablet 1,000 mg PO HS 10/17/24 10/17/24 History melatonin 3 mg capsule 18 mg PO DAILY 10/17/24 10/17/24 History Allergies Allergy/AdvReac Type Severity Reaction Status Date / Time abatacept AdvReac Flushing Verified 10/17/24 09:17 Vital Signs Vital Signs - 24 hr 10/17/24 09:13 10/17/24 10:22 10/17/24 10:40 Temperature 36.4 C Pulse Rate 70 67 70 Respiratory Rate 17 17 20 Blood Pressure 171/78 H 119/66 118/64 Pulse Oximetry 96 96 96 Oxygen Delivery Room Air 10/17/24 11:41 Temperature 36.7 C Pulse Rate 54 L Respiratory Rate 18 Blood Pressure 132/65 Pulse Oximetry 97 Oxygen Delivery Exam Narrative: GENERAL: Well-appearing, well-nourished, and in no acute distress. HEAD: Normocephalic, atraumatic. ENT:? Mucous membranes moist. CHEST: Periodic cough, rhonchi right lower lobe HEART: Regular rate and rhythm. ? Normal peripheral pulses. ABDOMEN: Soft, nontender, nondistended. EXTREMITIES: Normal range of motion. No peripheral edema. SKIN: Warm dry normal color NEURO: Alert and oriented, follows commands, moves all extremities normally PSYCH: Normal mood and affect H&P: Results Labs Labs: Short CBC 10/17/24 Range/Units 09:22 WBC 4.9 (4.5-10.0) K/mm3 Hgb 12.7 L (14.0-18.0) g/dL Hct 38.4 L (42.0-52.0) % Plt Count 150 (150-375) k/mm3 [facility] 10/17/24 09:22 Sodium 138 Potassium 4.0 Chloride 103 Carbon Dioxide 28 BUN 31 H Creatinine 1.15 Glucose 101 Calcium 9.1 Cardiac Enzymes 10/17/24 10/17/24 Range/Units 09:22 12:59 Troponin I 0.019 0.150 H* D (0.000-0.034) ng/mL Liver Function 10/17/24 Range/Units 09:22 Total Bilirubin 0.5 (0.2-1.3) mg/dL AST 28 (17-59) U/L ALT 11 (6-50) U/L Alkaline Phosphatase 139 H (38-126) U/L Albumin 4.3 (3.5-5.1) g/dL Pulse Oximetry SpO2 results: 91-97% on room air Attestation: I personally reviewed and interpreted this pulse oximetry as follows: Interpretation: No need for supplemental oxygenation at this time, continue use of home BiPAP at night ECG Attestation: I personally reviewed and interpreted this ECG as follows: ECG completion date: 10/17/24 ECG completion time: 12:27 Prior ECG tracings: available for review Interpretation: Sinus bradycardia with second-degree AV block Mobitz type 1, rate of 52, QRS duration 148, QTC 429, QRS axis -48, right bundle-branch block and left anterior fascicular block, no STEMI Imaging Chest x-ray: Radiologist's impression: Clinical Indication: Chest pain PA and lateral views of the chest: Comparison: 09/29/2024 Findings: The lungs are clear, without evidence of focal consolidation or pleural effusion. Cardiomediastinal silhouette is stable. Bones and soft tissues are unremarkable. Impression: Clear lungs. Status post CABG. Reviewed, dictated and finalized at [facility]. Assessment and Plan Assessment and plan (1) NSTEMI (non-ST elevated myocardial infarction): Code(s): I21.4 - Non-ST elevation (NSTEMI) myocardial infarction Status: Acute Assessment and Plan: -Presentation to ER 1 hour after onset of chest pain with radiation to left arm -Initial troponin normal but second result elevated -Cardiology consulted, spoke to Dr. Toro -Patient made NPO except meds after midnight -Initiated heparin drip -NSTEM diagnosed -Trend troponin to peak -Possible cardiac cath 10/18/24 -Troponin 0.019 --> 0.150 --> 0.760 --> 5.430 -Draw troponin with each PTT overnight (2) Mobitz type 1 second degree atrioventricular block: Code(s): I44.1 - Atrioventricular block, second degree Status: Acute Assessment and Plan: -Sinus bradycardia with Mobitz Type 1 AV block noted 12:27 EKG -This was taken when second troponin drawn -No STEMI (3) Parkinson's disease: Code(s): G20 - Parkinson's disease Status: Chronic Assessment and Plan: -Known history with dysphagia and peripheral neuropathy as secondary features -Continue home medications as tolerated (4) Obstructive sleep apnea: Code(s): G47.33 - Obstructive sleep apnea (adult) (pediatric) Status: Chronic Assessment and Plan: -BiPAP noted in medical record -Home unit brought to use in Hospital -Dr. Price sees patient in clinic with office visit scheduled for tomorrow. -Dr. Price called to say she would stop by for courtesy visit (5) Hypertension: Code(s): I10 - Essential (primary) hypertension Status: Chronic Assessment and Plan: -Continue home medications, blood pressure reviewed (6) Hypothyroidism: Code(s): E03.9 - Hypothyroidism, unspecified Status: Chronic Assessment and Plan: -Continue home medications (7) Gastroesophageal reflux disease: Code(s): K21.9 - Gastro-esophageal reflux disease without esophagitis Status: Chronic Assessment and Plan: -Continue home medications (8) Dysphagia: Code(s): R13.10 - Dysphagia, unspecified Status: Chronic Assessment and Plan: -Known history dysphagia due to Parkinson's with recurrent bouts of aspiration pneumonia -Patient frequently coughs/chokes on food at home -Consult Speech Therapy for recommendations -previously left lower lobe pneumonia treated with Levaquin but patient was vomiting after each dose, completed 6 days of therapy -right lower lobe now with rhonchi and patient has nonproductive cough, witnessed choking on food but daughter this afternoon (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: Code(s): J43.9 - Emphysema, unspecified; J98.4 - Other disorders of lung Status: Chronic Assessment and Plan: -Keep sats >90%, use BiPAP at night as tolerated (10) CKD (chronic kidney disease): Code(s): N18.9 - Chronic kidney disease, unspecified Status: Acute Assessment and Plan: -Renal function near baseline on admit -Cr 1.15, BUN 31, estimated CrCl 40, estimated GFR 60 -Monitor labs Quality VTE Prophylaxis VTE prophylaxis: pharmacologic ordered (Heparin drip on admit) Total time spent on this patient including critical care time below: 120 minutes Due to a high probability of clinically significant, life threatening deterioration, the patient required my highest level of preparedness to intervene emergently and I personally spent this critical care time directly and personally managing the patient. This critical care time included obtaining a history; examining the patient; pulse oximetry; ordering and review of studies; arranging urgent treatment with development of a management plan; evaluation of patient's response to treatment; frequent reassessment; and discussions with other providers. It was exclusive of separately billable procedures and treating other patients and teaching time. Please see Assessment and Plan section and the rest of the note for further information on patient assessment and treatment. Critical Care time: 45 minutes Hospitalist MIPS Advance Care Plan I have confirmed that the patient's Advanced Care Plan is present, code status is documented, or surrogate decision maker is listed in patient medical record.: Yes Medication Reconciliation I have utilized all available resources to obtain, update and review the patients current medications (includes all prescriptions, OTC, herbals, cannabis, and nutritional supplements).: Yes
[2024-10-17] MEDS: HEPARIN SODIUM 5,000 UNITS/ML VIAL 4000 UNITS IV PUSH (14:29)
[2024-10-17] MEDS: HEPARIN SOD/D5W 100 UNITS/ML 25,000 UNITS/250 ML BAG 8 UNITS IV CONT (14:30)
--- NOTE | 2024-10-17 14:33 | ADMGEN ---
This patient, Kellee Bearden, was admitted to IMU Room 214-01. Patient/family oriented to hospital policies and general routines including ID bracelet, bed and alarms, visiting hours, pain management, procedures, bathroom and other care routines, personal items, smoking policy, room service/diet, and visiting hours. Information on how to activate the Rapid Response Team has been discussed. Patient/Family are encouraged to report perceived risks to care and to ask questions if they do not understand what they are told or what they should do.
--- NOTE | 2024-10-17 14:41 | P.CONCA_ITS ---
Assessment and Plan Assessment and plan (1) NSTEMI (non-ST elevated myocardial infarction): Code(s): I21.4 - Non-ST elevation (NSTEMI) myocardial infarction Status: Acute (2) Coronary artery disease: Code(s): I25.10 - Atherosclerotic heart disease of lummi coronary artery without angina pectoris Status: Acute (3) CHF (congestive heart failure): Qualifiers: Heart failure type: combined systolic and diastolic Heart failure chronicity: chronic Qualified Code(s): I50.42 - Chronic combined systolic (congestive) and diastolic (congestive) heart failure Code(s): I50.9 - Heart failure, unspecified Status: Acute Plan 84-year-old man with CAD status post CABG (PAGAN-LAD, SVG-OM1, SVG-D2, SVG-PDA in 2016), chronic diastolic heart failure hypertension hyperlipidemia, rheumatoid arthritis, obstructive sleep apnea CPAP, and Parkinson's disease presents with chest pain. Non ST-elevation CA -trend troponins to peak -continue heparin drip -obtain transthoracic echocardiogram -have discussed with him and his daughter Kaya the above plan and the possibility of a cardiac catheterization pending the updated labs as well as his clinical course Coronary artery disease status post CABG -aspirin 81 mg p.o. daily -outpatient noted to be statin intolerant and will need to confirm -now on beta-amira likely secondary to his Parkinson's disease but will have to confirm Chronic diastolic heart failure -continue Bumex 2 mg p.o. daily -may consider titrating down to 1 mg p.o. daily of his creatinine continues to rise Patient sees Dr. Mohr in the clinic History of Present Illness History of Present Illness Consult date/time: 10/17/24 14:41 Requesting physician: Philip Berry APRN Consult reason: chest pain Reason For Visit: chest pain Narrative: 84-year-old man with CAD status post CABG (PAGAN-LAD, SVG-OM1, SVG-D2, SVG-PDA in 2016), chronic diastolic heart failure hypertension hyperlipidemia, rheumatoid arthritis, obstructive sleep apnea CPAP, and Parkinson's disease presents with chest pain. It started this morning around 8:45 a.m. with initial symptoms of left arm pain that is also burning sensation with radiation to his left shoulder and eventually to his substernal chest region. He was at home sitting down drinking his coffee watching TV and about to eat a pop tart when this symptom suddenly occurred. For the past year, he has not noted any significant cardiopulmonary symptoms. He is able to walk around the grocery store such as [employer] without any chest discomfort or shortness of breath. Denies any loss of consciousness or palpitations. 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 At home he took aspirin 325 mg with no alleviation of his pain. He quickly came to the emergency room accompanied by his daughter Kaya lopez he lives with at home. He was given morphine with no alleviation of his pain. He was then given nitro paste which did quickly alleviated his pain. He has not had any recurrence of his chest discomfort. No orthopnea or significant lower extremity swelling. He is recovering from a left lower lung pneumonia that he developed last month. Review of Systems 2 Cardiovascular: Cardiovascular: Reports as per HPI Respiratory: Respiratory: Reports as per HPI [facility] Past Medical History Medical History BPH (benign prostatic hyperplasia) Overactive bladder Pneumonitis BPH (benign prostatic hyperplasia) Dementia due to Parkinson's disease Recurrent falls Parkinson disease Hypothyroidism Rheumatoid arthritis Gastroesophageal reflux disease Hiatal hernia with gastroesophageal reflux disease and esophagitis Barretts esophagus Dysphagia Hypertension Rheumatoid arthritis of unspecified site with involvement of other organs and systems Carpal tunnel syndrome on both sides Obstructive sleep apnea With sleep study in 2020 recommending BiPAP RLS (restless legs syndrome) Chronic obstructive pulmonary disease Mild emphysematous changes noted on CT scan 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 Arthritis CHF (congestive heart failure) Echo May 2020: Normal left ventricular systolic function EF 69%, moderate concentric left ventricular hypertrophy, mild left ventricular enlargement, paradoxical septal motion consistent with bundle branch block, diastolic dysfunction grade 1, technically difficult study Coronary artery disease Surgical History Surgical History History of dental cheondoism Dental implants Status post open reduction with internal fixation of fracture Knee cap Hx of cholecystectomy Status post cataract extraction of both eyes with insertion of intraocular lens History of Osvaldo fundoplication History of tonsillectomy and adenoidectomy History of uvulopalatopharyngoplasty H/O eye surgery Left eye to correct double vision History of four vessel coronary artery bypass graft Family History Family History Father Acute myocardial infarction, Onset Age: 84 Family history of coronary artery disease, Onset Age: 84 Mother Carcinoma of colon, Onset Age: 64 Sibling Family history of coronary artery disease Carcinoma of colon Social History Social History Social History: The patient sold his house in moved in with his daughter after the patient's in 2019. He was 59 years prior to his 's . He ambulates with a walker and/or cane. He used to smoke 5 or 6 cigars a day but quit in 2014. He denies any alcohol use. 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 The patient and his raised 2 of her own children and also raise the patient's sister who was 30 years younger. They took custody of the patient's sister when she was 16 after his mother had . Code status: Full code (however he would not want to be on ventilator for long- term, have a tracheostomy or a feeding tube.) Healthcare power of claims attorney: Daughter Smoking packs per day: 1 Smoking cigarettes per day: 20.0 Years smoked: 25 Smoking pack-years: 25.00 Smoking status: Former smoker Tobacco type: cigars Smoking end date: 05/11/14 Alcohol intake: never Substance use: never Substance use type: does not use Do You Feel Safe in your Home?: Yes Lack of Transportation: No Lack of Food: Never True Current Housing: I Have Housing Concerned About Future Housing: No Difficulty Paying Gas/Electric Bills: No Difficulty Paying for Meds: No Currently Unemployed: No Education: High School Diploma/GED Difficulty w/ Childcare or Family Care: No Living arrangements: with family Additional living arrangements comments: WITH DAUGHTER Occupation/Education: retired Gender identity (if verbalized by the patient): Male Sexual Orientation (if Verbalized by the Patient): Straight or Heterosexual Spiritual care concerns: No Meds Home Medications and Allergies Home Medications ?Medication ?Instructions ?Recorded ?Confirmed ?Type aspirin 81 mg tablet,delayed 81 mg PO QHS 03/23/19 10/17/24 History release (Aspir-Low) tamsulosin 0.4 mg capsule 0.4 mg PO HS 04/24/20 10/17/24 History gabapentin 300 mg capsule 300 mg PO QID 05/15/20 10/17/24 History carbamazepine 200 mg tablet 200 mg PO Q12H #60 tabs 09/14/20 10/17/24 Rx nitroglycerin 0.4 mg sublingual 0.4 mg sublingual PRN PRN Chest 10/23/22 10/17/24 History tablet Pain hydroxychloroquine 200 mg tablet 400 mg (2 x 200 mg) PO DAILY #180 06/18/23 10/17/24 Rx (Plaquenil) tabs finasteride 5 mg tablet 5 mg PO DAILY 02/01/24 10/17/24 History cyanocobalamin (vitamin B-12) 1,000 mcg PO QAM #30 tabs 03/16/24 10/17/24 Rx 1,000 mcg tablet (Vitamin B-12) levothyroxine 75 mcg tablet 75 mcg PO DAILY #90 tabs 06/15/24 10/17/24 Rx fluticasone 113 mcg-salmeterol 14 1 inh inhalation BID #1 ea 06/29/24 10/17/24 Rx mcg/actuation breath activated powdr carbidopa 25 mg-levodopa 100 mg 2 tablet PO TID 07/20/24 10/17/24 History tablet pantoprazole 40 mg tablet,delayed 40 mg PO BID 3 months #180 tabs 08/04/24 10/17/24 Rx release famotidine 20 mg tablet 20 mg PO BID 3 months #180 tabs 08/26/24 10/17/24 Rx bumetanide 1 mg tablet 2 mg PO DAILY 09/07/24 10/17/24 History melatonin 5 mg capsule 18 mg PO QHS 09/07/24 10/17/24 History polyethylene glycol 3350 17 gram 17 g PO DAILY constipation 09/07/24 10/17/24 History oral powder packet (Miralax) ropinirole 1 mg tablet 5 mg PO DAILY 09/07/24 10/17/24 History albuterol sulfate 90 mcg/actuation See Rx Instructions .Route 10/04/24 10/17/24 Rx aerosol inhaler .COMPLEX #8.5 grams acetaminophen 500 mg tablet 1,000 mg PO HS 10/17/24 10/17/24 History Allergies Allergy/AdvReac Type Severity Reaction Status Date / Time abatacept AdvReac Flushing Verified 10/17/24 09:17 Vital Signs Vital Signs - 24 hr 10/17/24 09:13 10/17/24 10:22 10/17/24 10:40 Temperature 36.4 C Pulse Rate 70 67 70 Respiratory Rate 17 17 20 Blood Pressure 171/78 H 119/66 118/64 Pulse Oximetry 96 96 96 Oxygen Delivery Room Air 10/17/24 11:41 10/17/24 13:58 Temperature 36.7 C 36.6 C Pulse Rate 54 L 64 Respiratory Rate 18 18 Blood Pressure 132/65 146/65 H Pulse Oximetry 97 97 Oxygen Delivery Exam 2 Const: General: comfortable HENMT: Mouth: Yes moist mucous membranes Eyes: EOM: EOMs intact bilaterally Neck: Neck: no JVD Resp: Effort & Inspection: normal respiratory effort Auscultation: crackles Other: Left-sided crackles and wheeze Cardio: Rate: regular rate Rhythm: regular rhythm Heart sounds: Murmur heart sound present Other: Upper sternal border murmur. Neuro: Speech: normal speech Extrem: General: no pedal edema Results Labs and Meds 10/17/24 09:22 10/17/24 09:22 Lab results: Cardiac Enzymes 10/17/24 10/17/24 Range/Units 09:22 12:59 AST 28 (17-59) U/L Troponin I 0.019 0.150 H* D (0.000-0.034) ng/mL Coagulation 10/17/24 Range/Units 09:22 PT 13.1 (11.1-14.7) Seconds APTT 29.4 (22.3-36.8) Seconds CBC 10/17/24 Range/Units 09:22 WBC 4.9 (4.5-10.0) K/mm3 RBC 3.89 L (4.6-6.20) M/mm3 Hgb 12.7 L (14.0-18.0) g/dL Hct 38.4 L (42.0-52.0) % Plt Count 150 (150-375) k/mm3 Lymph # (Auto) 1.22 (0.9-3.2) K/mm3 [place] # (Auto) 0.6 (0.1-0.6) K/mm3 Eos # (Auto) 0.1 (0-0.3) K/mm3 Baso # (Auto) 0.1 (0.0-0.1) K/mm3 Comprehensive Metabolic Panel 10/17/24 Range/Units 09:22 Sodium 138 (137-145) mmol/L Potassium 4.0 (3.4-5.0) mmol/L Chloride 103 (98-107) mmol/L Carbon Dioxide 28 (22-30) mmol/L BUN 31 H (9-20) mg/dL Creatinine 1.15 (0.7-1.3) mg/dL Glucose 101 (65-110) mg/dL Calcium 9.1 (8.4-10.2) mg/dL AST 28 (17-59) U/L ALT 11 (6-50) U/L Alkaline Phosphatase 139 H (38-126) U/L Total Protein 7.3 (6.3-8.2) g/dL Albumin 4.3 (3.5-5.1) g/dL Patient Weight 10/17/24 23:59 Weight 80.4 kg
--- NOTE | 2024-10-17 15:15 | PCRCNOTE ---
Spoke to patient and patient's family regarding cpap or bipap machine. Patient's family member states she is going home to get his home bipap and will be bringing it here.
[2024-10-17 16:16] LABS: Glucose Point of Care 208 mg/dl (65-105)
[2024-10-17] MEDS: GABAPENTIN 300 MG CAPSULE PO ×2 (17:08→20:14)
[2024-10-17] MEDS: CARBIDOPA/LEVODOPA 25/100 MG TABLET 2 TABLET PO ×2 (17:08→21:08)
[2024-10-17 18:29] LABS: Hemoglobin A1C 5.4 % (<5.7)
[2024-10-17 19:48] LABS: Glucose Point of Care 89 mg/dl (65-105)
[2024-10-17] MEDS: MELATONIN 5 MG TABLET 15 MG PO (20:14)
[2024-10-17] MEDS: ACETAMINOPHEN 500 MG TABLET 1000 MG PO (20:14)
[2024-10-17] MEDS: TAMSULOSIN HCL 0.4 MG CAPSULE PO (20:14)
[2024-10-17] MEDS: rOPINIRole HCL 1 MG TABLET 2 MG PO (20:15)
[2024-10-17] MEDS: carBAMazepine 200 MG TABLET PO (20:15)
[2024-10-17] MEDS: FAMOTIDINE 20 MG TABLET PO (20:15)
[2024-10-17] MEDS: PANTOPRAZOLE 40 MG TABLET PO (20:15)
[2024-10-17] MEDS: FLUTICASONE/SALMETEROL 115-21 MCG INHALER 1 PUFF 2 PUFF INHALATION (20:33)
[2024-10-17 20:49] LABS: Partial Thromboplastin Time 60.6 Seconds (22.3-36.8)
[2024-10-17] MEDS: HEPARIN SODIUM 5,000 UNITS/ML VIAL 3000 UNITS IV PUSH (21:05)
[2024-10-18] VITALS (28 sets, daily range): BP systolic 103–145; BP diastolic 43–69; PULSE 46–70; RESP 10–20; TEMP 36.4–36.6; O2SAT 58–100
--- NOTE | 2024-10-18 | ECHO_ITS ---
Patient Info Name: Kellee Bearden Age: 84 years : 1940 Gender: Male Ht: 63 in Wt: 176 lbs BSA: 1.91 m2 HR: 65 bpm BP: 110 / 52 mmHg Technical Quality: Good Exam Date: 10/18/2024 8:29 AM Patient Status: I Admit Date: 10/17/2024 Exam Type: CA echo dop color flow w con Complete two-dimensional, color flow and Doppler transthoracic echocardiogram is performed with contrast to opacify the left ventricle and to improve the deliniation of the left ventricle endocardial borders. Staff Referring Physician: Ese Cabello MD Actuary: Ebony Ovalle Attending Provider: Hany Alvarado Contrast/Agitated Saline Contrast/Ag. Saline: Definity Amount: 2.00 ml Administered By: Ebony Ovalle Existing IV Access: Yes Summary 1. Left ventricular chamber dimension is normal. 2. Left ventricular systolic function is normal, estimated at 65-70. 3. There is mildly increased left ventricular wall thickness. 4. The left ventricular diastolic function is grade I diastolic dysfunction. 5. Right ventricular systolic function is normal. 6. There is moderate mitral valve regurgitation, which may be underestimated due to eccentricity of the jet. 7. There is mild tricuspid valve regurgitation. Left Ventricle Left ventricular chamber dimension is normal. Left ventricular systolic function is normal, estimated at 65-70. There is mildly increased left ventricular wall thickness. Left ventricular septal wall motion is abnormal with septal motion related to a post-operative state. The left ventricular diastolic function is grade I diastolic dysfunction. Right Ventricle Right ventricular chamber dimension is normal. Right ventricular systolic function is normal. Left Atria Left atrial chamber dimension is normal. Right Atria Right atrial chamber dimension is normal. Atrial Septum Intact interatrial septum visualized by color flow imaging. Aortic Valve The aortic valve is trileaflet. There is no aortic valve stenosis. There is trace aortic valve regurgitation. Pulmonic Valve The pulmonic valve is not well visualized. Mitral Valve There is moderate mitral valve regurgitation, which may be underestimated due to eccentricity of the jet. The mitral valve annulus is moderately calcified. Tricuspid Valve There is mild tricuspid valve regurgitation. Pericardium/Pleural There is no pericardial effusion. Inferior Vena Cava Normal inferior vena cava with <50% collapse upon inspiration consistent with elevated right atrial pressure, 8 mmHg. Aorta The aortic root size at the sinus of Valsalva is normal. Left Ventricular Outflow Tract Name Value Normal LVOT 2D LVOT Diameter 1.9 cm LVOT Doppler LVOT Peak Velocity 117 cm/s LVOT Peak Gradient 5 mmHg LVOT Mean Gradient 3 mmHg LVOT VTI 27 cm LVOT VTI/AV VTI Ratio 0.8 LVOT Stroke Volume 75 ml LVOT CO 3.6 l/min LVOT CI 1.9 l/min/m2 Pulmonic Valve Name Value Normal PV Doppler PV Peak Velocity 103 cm/s PV Peak Gradient 4 mmHg Mitral Valve Name Value Normal MV Doppler MV Peak Gradient 6 mmHg MV Mean Gradient 2 mmHg MV Area (Cont Eq VTI) 1.6 cm2 MV Regurgitation Doppler MR Peak Gradient 135 mmHg MV Diastolic Function MV E Peak Velocity 111 cm/s MV A Peak Velocity 113 cm/s MV E/A 1.0 MV Decel Time (PW) 210 ms MV Annular TDI MV E/e' (Septal) 15.5 MV E/e' (Lateral) 10.0 MV E/e' (Average) 12.8 Tricuspid Valve Name Value Normal TV Regurgitation Doppler TR Peak Velocity 508 cm/s TR Peak Gradient 103 mmHg Estimated PAP/RSVP RA Pressure 8 mmHg <=5 PA Systolic Pressure 111 mmHg <36 RV Systolic Pressure 111 mmHg <36 TV Annular TDI TV Lateral Zina s' Velocity 10.7 cm/s >=9.5 Aortic Valve Name Value Normal AV Doppler AV Peak Velocity 155 cm/s AV Peak Gradient 10 mmHg AV Mean Gradient 5 mmHg AV VTI 33 cm AV Area (Cont Eq VTI) 2.3 cm2 >=3.0 AV Area (Cont Eq Antolin) 2.0 cm2 AV DI (Antolin) 0.75 AV Regurgitation 2D LVOT Area 2.7 cm2 Ventricles Name Value Normal LV Dimensions 2D/MM IVS Diastolic Thickness (2D) 1.1 cm 0.6-1.0 LVID Diastole (2D) 4.6 cm 4.2-5.8 LVIW Diastolic Thickness (2D) 1.1 cm 0.6-1.0 LVID Systole (2D) 3.0 cm 2.5-4.0 LVOT Diameter 1.9 cm LV Mass (2D Cubed) 175.58 g 88.00-224.00 LV Mass Index (2D Cubed) 92 g/m2 49-115 Relative Wall Thickness (2D) 0.47 <=0.42 LV Fractional Shortening/Ejection Fraction 2D/MM LV Fractional Shortening (2D) 35 % 25-43 LV EF (2D Teichholz) 65 % LV Diastolic Volume (4C MOD) 111 ml LV EF (4C MOD) 53 % LV Diastolic Volume (2C MOD) 87 ml LV EF (2C MOD) 54 % LV Diastolic Volume (BP MOD) 102 ml 62-150 LV Diastolic Volume Index (BP MOD) 54 ml/m2 34-74 LV Systolic Volume (BP MOD) 47 ml 21-61 LV Systolic Volume Index (BP MOD) 25 ml/m2 11-31 LV EF (BP MOD) 54 % 52-72 LV Diastolic Length (4C) 8.5 cm LV Systolic Length (4C) 7.0 cm LV Stroke Volume (4C MOD) 59 ml Atria Name Value Normal LA Dimensions LA Volume (4C A-L) 56 ml LA Volume (BP A-L) 60 ml RA Dimensions RA Systolic Major [place] Length (4C) 5.2 cm 2.1-2.7 RA Area (4C) 14.1 cm2 <=18.0 Report Signatures
[2024-10-18 03:03] LABS: Basophils Percent Auto 0.7 % (0.2-1.2); Eosinophils Absolute Auto 0.1 K/mm3 (0-0.3); Eosinophils Percent Auto 1.8 % (0-4.4); Hematocrit 34.5 % (42.0-52.0); Hemoglobin 11.3 g/dL (14.0-18.0); Immature Granulocyte Absolute 0.02 K/mm3 (0.00-0.031); Immature Granulocyte Percent A 0.4 % (0-0.5); Immature Platelet Fraction Pct 4.6 % (0.9-11.2); Lymphocytes Percent Auto 16.5 % (18.3-44.2); Mean Corpuscular HGB Conc 32.8 g/dl (32-36); Mean Corpuscular Hemoglobin 32.7 pg (26-34); Mean Corpuscular Volume 99.7 fl (80-100); Mean Platelet Volume 10.7 fl (7.4-10.4); Monocytes Absolute Auto 0.5 K/mm3 (0.1-0.6); Monocytes Percent Auto 8.8 % (2.6-8.5); Neutrophils Absolute Auto 3.9 K/mm3 (1.3-6.7); Neutrophils Percent Auto 71.8 % (45.5-73.1); Platelet Count Result 136 k/mm3 (150-375); Red Blood Count 3.46 M/mm3 (4.6-6.20); Red Cell Distribution Width 12.6 % (11.5-14.5); White Blood Count 5.4 K/mm3 (4.5-10.0)
[2024-10-18 03:14] LABS: Partial Thromboplastin Time 103.3 Seconds (22.3-36.8)
[2024-10-18 03:49] LABS: Alanine Aminotransferase 6 U/L (6-50); Albumin Level 3.5 g/dL (3.5-5.1); Alkaline Phosphatase 106 U/L (38-126); Anion Gap 5 mmol/L (4-12); Aspartate Amino Transferase 52 U/L (17-59); Bilirubin,Total 0.6 mg/dL (0.2-1.3); Blood Urea Nitrogen 28 mg/dL (9-20); Calcium 8.5 mg/dL (8.4-10.2); Carbon Dioxide 24 mmol/L (22-30); Chloride 103 mmol/L (98-107); Estimated CRCL calculation 45 ml/min; Estimated Glomerular Filt Rate > 60; Glucose 96 mg/dL (65-110); Magnesium 2.2 mg/dL (1.6-2.3); Potassium 4.3 mmol/L (3.4-5.0); Sodium 132 mmol/L (137-145); Total Protein 6.1 g/dL (6.3-8.2)
[2024-10-18] MEDS: LEVOTHYROXINE SODIUM 75 MCG TABLET PO (06:06)
[2024-10-18] MEDS: rOPINIRole HCL 1 MG TABLET PO ×2 (06:06→15:46)
[2024-10-18 08:16] LABS: Glucose Point of Care 95 mg/dl (65-105)
[2024-10-18] MEDS: PERFLUTREN LIPID MICROSPHERES 1.5 ML VIAL DILUTED TO 10 ML TOTAL VOLUME IV PUSH (09:00)
[2024-10-18 09:27] LABS: Partial Thromboplastin Time 73.8 Seconds (22.3-36.8)
--- NOTE | 2024-10-18 09:28 | IVDEFINITY ---
Prior to administration of IV Definity the patient was educated on the risks and benefits of the imaging enhancing agent including potential adverse side effects. The patient verbalized understanding. Allergies were verified. No exclusion criteria were identified and at least one of the following inclusion criteria were met: 1) physician request, 2) patient technically difficult to image (per the [place] [employer] guidelines of two or more segments not discernable within the apical view), or 3) questionable left ventricular function. ?
--- NOTE | 2024-10-18 09:37 | PM.PNCARD ---
Progress Note: A&P Assessment and Plan (1) NSTEMI (non-ST elevated myocardial infarction): Code(s): I21.4 - Non-ST elevation (NSTEMI) myocardial infarction Status: Acute Plan 84-year-old man with CAD status post CABG (PAGAN-LAD, SVG-OM1, SVG-D2, SVG-PDA in 2016), chronic diastolic heart failure, hypertension hyperlipidemia, rheumatoid arthritis, obstructive sleep apnea CPAP, and Parkinson's disease presents with chest pain. Non ST-elevation [place] -Echocardiogram pending. -Discussed cardiac catheterization with the patient and his daughter, including indication for procedure, procedure details, risks vs benefits, alternative management options. Patient would like to proceed. Will plan for [facility] today. Continue ASA daily. Continue Heparin drip in the meantime. Noted to have statin intolerance -- recommend Repatha as outpatient. Coronary artery disease status post CABG -Aspirin 81 mg p.o. daily -Outpatient noted to be statin intolerant, recommend Repatha as outpatient. Chronic diastolic heart failure -Continue Bumex 2 mg p.o. daily -Echocardiogram pending. Patient sees Dr. Mohr in the clinic Subjective Date/time seen: 10/18/24 09:37 Interval history: Reason for visit: NSTEMI HPI: 84-year-old man with CAD status post CABG (PAGAN-LAD, SVG-OM1, SVG-D2, SVG-PDA in 2016), chronic diastolic heart failure hypertension hyperlipidemia, rheumatoid arthritis, obstructive sleep apnea CPAP, and Parkinson's disease presents with chest pain. It started this morning around 8:45 a.m. with initial symptoms of left arm pain that is also burning sensation with radiation to his left shoulder and eventually to his substernal chest region. He was at home sitting down drinking his coffee watching TV and about to eat a pop tart when this symptom suddenly occurred. For the past year, he has not noted any significant cardiopulmonary symptoms. He is able to walk around the grocery store such as [employer] without any chest discomfort or shortness of breath. Denies any loss of consciousness or palpitations. 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 At home he took aspirin 325 mg with no alleviation of his pain. He quickly came to the emergency room accompanied by his daughter Kaya lopez he lives with at home. He was given morphine with no alleviation of his pain. He was then given nitro paste which did quickly alleviated his pain. He has not had any recurrence of his chest discomfort. No orthopnea or significant lower extremity swelling. He is recovering from a left lower lung pneumonia that he developed last month. Date of service 10/18: Troponins went up to 15. However, patient remains chest pain free. Undergoing swallow evaluation because he keeps aspirating, however, is able to take pills. Review of Systems Cardiovascular: Cardiovascular: Reports as per HPI Exam Const: General: no acute distress HENMT: Mouth: Yes moist mucous membranes Eyes: General: appearance normal, both eyes and all related structures Sclera: sclerae normal Resp: Effort & Inspection: normal respiratory effort Cardio: Rate: regular rate Rhythm: regular rhythm Skin: General skin exam: normal color Neuro: Speech: normal speech Psych: Mental Status: mental status grossly normal Affect: normal affect Objective Data Vital Signs Vital Signs: Vital Signs - 24 hr 10/17/24 10:22 10/17/24 10:40 10/17/24 11:41 Temperature 36.7 C Pulse Rate 67 70 54 L Respiratory Rate 17 20 18 Blood Pressure 119/66 118/64 132/65 Pulse Oximetry 96 96 97 Oxygen Delivery 10/17/24 13:58 10/17/24 16:00 10/17/24 19:29 Temperature 36.6 C 36.5 C 36.4 C Pulse Rate 64 66 57 L Respiratory Rate 18 16 18 Blood Pressure 146/65 H 113/56 L 113/56 L Pulse Oximetry 97 97 95 Oxygen Delivery 10/17/24 20:00 10/17/24 20:00 10/17/24 20:34 Temperature Pulse Rate 58 L 63 Respiratory Rate Blood Pressure Pulse Oximetry 91 Oxygen Delivery Room Air Room Air 10/17/24 22:00 10/17/24 23:25 10/18/24 00:00 Temperature 36.4 C Pulse Rate 75 65 Respiratory Rate 18 Blood Pressure 102/50 L Pulse Oximetry 93 93 Oxygen Delivery CPAP 10/18/24 00:00 10/18/24 02:00 10/18/24 02:20 Temperature Pulse Rate 58 L 57 L Respiratory Rate Blood Pressure Pulse Oximetry 58 L Oxygen Delivery CPAP 10/18/24 03:42 10/18/24 04:00 10/18/24 04:00 Temperature 36.4 C L Pulse Rate 56 L 63 Respiratory Rate Blood Pressure 110/52 L Pulse Oximetry 96 93 Oxygen Delivery CPAP 10/18/24 06:00 10/18/24 08:02 Temperature 36.6 C Pulse Rate 65 61 Respiratory Rate 16 Blood Pressure 112/57 L Pulse Oximetry 100 Oxygen Delivery Intake/Output Intake/Output: Intake & Output 10/15/24 10/16/24 10/17/24 10/18/24 23:59 23:59 23:59 23:59 Intake Total 172.7 253.3 Output Total 525 100 Balance -352.3 153.3 Meds/Results Medications: Active Medications Generic Name Dose Route Start Last Admin Trade Name Freq PRN Reason Stop Dose Admin Acetaminophen 650 mg 10/17/24 13:11 Acetaminophen 325 Mg Tablet PO Q4H PRN Pain Rated 5 or Less or Fever Acetaminophen 1,000 mg 10/17/24 21:00 10/17/24 20:14 Acetaminophen 500 Mg Tablet PO 1,000 mg HS CHRISTINE Administration Albuterol 2 puff 10/17/24 16:20 Albuterol Sulfate (*Sp) Aerosol 1 Puff INHALATION QID PRN Shortness Of Breath/Wheezing Aspirin 81 mg 10/18/24 08:00 Aspirin 81 Mg Chewable Tablet PO DAILY@0800 CHRISTINE Bumetanide 2 mg 10/18/24 09:00 Bumetanide 1 Mg Tablet PO DAILY CHRISTINE Carbamazepine 200 mg 10/17/24 21:00 10/17/24 20:15 Carbamazepine 200 Mg Tablet PO 200 mg Q12HR CHRISTINE Administration Carbidopa/Levodopa 2 tablet 10/18/24 08:00 Carbidopa/Levodopa 25/100 Mg Tablet PO 08,13,18 CHRISTINE Cyanocobalamin 1,000 mcg 10/18/24 09:00 Cyanocobalamin 1,000 Mcg Tablet PO QAM CHRISTINE Famotidine 20 mg 10/17/24 21:00 10/17/24 20:15 Famotidine 20 Mg Tablet PO 20 mg Q12HR CHRISTINE Administration Finasteride 5 mg 10/18/24 09:00 Finasteride 5 Mg Tablet PO DAILY CHRISTINE Gabapentin 300 mg 10/17/24 17:00 10/17/24 20:14 Gabapentin 300 Mg Capsule PO 300 mg QID CHRISTINE Administration Heparin Sodium (Porcine) 4,000 units 10/17/24 13:48 Heparin Sodium 5,000 Units/Ml Vial IV PUSH PRN PRN aPTT less than 55 seconds Heparin Sodium (Porcine) 3,000 units 10/17/24 13:48 10/17/24 21:05 Heparin Sodium 5,000 Units/Ml Vial IV PUSH 3,000 units PRN PRN Administration aPTT 55 - 70 seconds Hydroxychloroquine Sulfate 400 mg 10/18/24 09:00 Hydroxychloroquine Sulfate 200 Mg Tablet PO DAILY CHRISTINE Heparin Sodium/Dextrose 25,000 units in 250 mls @ 9 mls/hr 10/17/24 14:00 10/18/24 03:00 Heparin Sodium/D5w 100 Units/Ml IV CONT 900 units/hr .Q24H CHRISTINE 9 mls/hr Titration Protocol 900 UNITS/HR Levothyroxine Sodium 75 mcg 10/18/24 06:30 10/18/24 06:06 Levothyroxine Sodium 75 Mcg Tablet PO 75 mcg DAILY@0630 CHRISTINE Administration Melatonin 15 mg 10/17/24 21:00 10/17/24 20:14 Melatonin 5 Mg Tablet PO 15 mg HS CHRISTINE Administration Morphine Sulfate 2 mg 10/17/24 12:17 Morphine Sulfate (*Crx) 2 Mg/Ml Inj IV PUSH Q2H PRN Pain Rated 6 or Greater Nitroglycerin 0.4 mg 10/17/24 15:46 Nitroglycerin Sl 0.4 Mg Tablet SUBLINGUAL PRN PRN Chest Pain Ondansetron HCl 4 mg 10/17/24 12:17 Ondansetron Inj 4 Mg/2 Ml Vial IV PUSH Q4H PRN Nausea Pantoprazole Sodium 40 mg 10/17/24 21:00 10/17/24 20:15 Pantoprazole 40 Mg Tablet PO 40 mg Q12HR CHRISTINE Administration Polyethylene Glycol 17 gm 10/18/24 09:00 Polyethylene Glycol 3350 17 Gm Powd.Pack PO DAILY CHRISTINE Ropinirole HCl 2 mg 10/17/24 21:00 10/17/24 20:15 Ropinirole Hcl 1 Mg Tablet PO 2 mg HS CHRISTINE Administration Ropinirole HCl 1 mg 10/18/24 07:00 10/18/24 06:06 Ropinirole Hcl 1 Mg Tablet PO 1 mg 0700,1530 CHRISTINE Administration Fluticasone/Salmeterol 2 puff 10/17/24 20:00 10/18/24 08:52 Fluticasone/Salmeterol 115-21 Mcg Inhaler 1 Puff INHALATION Not Given Q12HRT CHRISTINE Tamsulosin HCl 0.4 mg 10/17/24 21:00 10/17/24 20:14 Tamsulosin Hcl 0.4 Mg Capsule PO 0.4 mg HS CHRISTINE Administration Radiology Results: ITS Impressions Chest X-Ray 10/17/24 09:55 Impression: Clear lungs. Status post CABG. Labs Labs: Laboratory Results - last 24 hr 10/17/24 10/17/24 10/17/24 09:22 12:59 15:48 WBC RBC Hgb Hct MCV MCH MCHC RDW Plt Count MPV Immature Gran % (Auto) Neut % (Auto) Lymph % (Auto) [place] % (Auto) Eos % (Auto) Baso % (Auto) Lymph # (Auto) [place] # (Auto) Eos # (Auto) Baso # (Auto) Abs Immat Gran (auto) Absolute Neuts (auto) Absolute Nucleated RBC Nucleated RBC % % Immature Plt Fraction PT 13.1 INR 1.0 APTT 29.4 Sodium 138 Potassium 4.0 Chloride 103 Carbon Dioxide 28 Anion Gap 7 BUN 31 H Creatinine 1.15 Estim Creat Clear Calc 40 Estimated GFR 60 Glucose 101 POC Capillary Glucose Hemoglobin A1c 5.4 Calcium 9.1 Magnesium Total Bilirubin 0.5 AST 28 ALT 11 Alkaline Phosphatase 139 H Troponin I 0.019 0.150 H* D 0.760 H* D Total Protein 7.3 Albumin 4.3 Lipase 31 10/17/24 10/17/24 10/17/24 16:13 19:45 20:29 WBC RBC Hgb Hct MCV MCH MCHC RDW Plt Count MPV Immature Gran % (Auto) Neut % (Auto) Lymph % (Auto) [place] % (Auto) Eos % (Auto) Baso % (Auto) Lymph # (Auto) [place] # (Auto) Eos # (Auto) Baso # (Auto) Abs Immat Gran (auto) Absolute Neuts (auto) Absolute Nucleated RBC Nucleated RBC % % Immature Plt Fraction PT INR APTT 60.6 H Sodium Potassium Chloride Carbon Dioxide Anion Gap BUN Creatinine Estim Creat Clear Calc Estimated GFR Glucose POC Capillary Glucose 208 H 89 Hemoglobin A1c Calcium Magnesium Total Bilirubin AST ALT Alkaline Phosphatase Troponin I 5.430 H* D Total Protein Albumin Lipase 10/18/24 10/18/24 10/18/24 02:57 08:02 09:04 WBC 5.4 RBC 3.46 L Hgb 11.3 L Hct 34.5 L MCV 99.7 MCH 32.7 MCHC 32.8 RDW 12.6 Plt Count 136 L MPV 10.7 H Immature Gran % (Auto) 0.4 Neut % (Auto) 71.8 Lymph % (Auto) 16.5 L [place] % (Auto) 8.8 H Eos % (Auto) 1.8 Baso % (Auto) 0.7 Lymph # (Auto) 0.90 [place] # (Auto) 0.5 Eos # (Auto) 0.1 Baso # (Auto) 0.0 Abs Immat Gran (auto) 0.02 Absolute Neuts (auto) 3.9 Absolute Nucleated RBC 0.000 Nucleated RBC % 0.0 % Immature Plt Fraction 4.6 PT INR APTT 103.3 H 73.8 H Sodium 132 L Potassium 4.3 Chloride 103 Carbon Dioxide 24 Anion Gap 5 BUN 28 H Creatinine 0.98 Estim Creat Clear Calc 45 Estimated GFR > 60 Glucose 96 POC Capillary Glucose 95 Hemoglobin A1c Calcium 8.5 Magnesium 2.2 Total Bilirubin 0.6 AST 52 ALT 6 Alkaline Phosphatase 106 Troponin I 15.200 H* D Total Protein 6.1 L Albumin 3.5 Lipase
--- NOTE | 2024-10-18 09:42 | P.SEDATION_ITS ---
Moderate Sedation Note-Pt Data Patient Data Diagnosis: NSTEMI Present Complaint: NSTEMI Procedure to be performed/Plan: Coronary angiography, bypass graft angiography, left heart cath, +/- PCI Allergies Allergy/AdvReac Type Severity Reaction Status Date / Time abatacept AdvReac Flushing Verified 10/17/24 09:17 Home Medications ?Medication ?Instructions ?Recorded ?Confirmed ?Type aspirin 81 mg tablet,delayed 81 mg PO QHS 03/23/19 10/17/24 History release (Aspir-Low) tamsulosin 0.4 mg capsule 0.4 mg PO HS 04/24/20 10/17/24 History gabapentin 300 mg capsule 300 mg PO QID 05/15/20 10/17/24 History carbamazepine 200 mg tablet 200 mg PO Q12H #60 tabs 09/14/20 10/17/24 Rx nitroglycerin 0.4 mg sublingual 0.4 mg sublingual PRN PRN Chest 10/23/22 10/17/24 History tablet Pain hydroxychloroquine 200 mg tablet 400 mg (2 x 200 mg) PO DAILY #180 06/18/23 10/17/24 Rx (Plaquenil) tabs finasteride 5 mg tablet 5 mg PO DAILY 02/01/24 10/17/24 History cyanocobalamin (vitamin B-12) 1,000 mcg PO QAM #30 tabs 03/16/24 10/17/24 Rx 1,000 mcg tablet (Vitamin B-12) levothyroxine 75 mcg tablet 75 mcg PO DAILY #90 tabs 06/15/24 10/17/24 Rx fluticasone 113 mcg-salmeterol 14 1 inh inhalation BID #1 ea 06/29/24 10/17/24 Rx mcg/actuation breath activated powdr carbidopa 25 mg-levodopa 100 mg 2 tablet PO TID 07/20/24 10/17/24 History tablet pantoprazole 40 mg tablet,delayed 40 mg PO BID 3 months #180 tabs 08/04/24 10/17/24 Rx release famotidine 20 mg tablet 20 mg PO BID 3 months #180 tabs 08/26/24 10/17/24 Rx bumetanide 1 mg tablet 2 mg PO DAILY 09/07/24 10/17/24 History polyethylene glycol 3350 17 gram 17 g PO DAILY constipation 09/07/24 10/17/24 History oral powder packet (Miralax) ropinirole 1 mg tablet 1 mg PO .COMPLEX 09/07/24 10/17/24 History albuterol sulfate 90 mcg/actuation See Rx Instructions .Route 10/04/24 10/17/24 Rx aerosol inhaler .COMPLEX #8.5 grams acetaminophen 500 mg tablet 1,000 mg PO HS 10/17/24 10/17/24 History melatonin 3 mg capsule 18 mg PO DAILY 10/17/24 10/17/24 History Current Medications: Active Medications Acetaminophen (Acetaminophen 325 Mg Tablet) 650 mg PO Q4H PRN PRN Reason: Pain Rated 5 or Less or Fever Acetaminophen (Acetaminophen 500 Mg Tablet) 1,000 mg PO [facility] Last Admin: 10/17/24 20:14 Dose: 1,000 mg Albuterol (Albuterol Sulfate (*Sp) Aerosol 1 Puff) 2 puff INHALATION QID PRN PRN Reason: Shortness Of Breath/Wheezing Aspirin (Aspirin 81 Mg Chewable Tablet) 81 mg PO DAILY@0800 [facility] Bumetanide (Bumetanide 1 Mg Tablet) 2 mg PO DAILY [facility] Carbamazepine (Carbamazepine 200 Mg Tablet) 200 mg PO Q12HR [facility] Last Admin: 10/17/24 20:15 Dose: 200 mg Carbidopa/Levodopa (Carbidopa/Levodopa 25/100 Mg Tablet) 2 tablet PO ,,18 [facility] Cyanocobalamin (Cyanocobalamin 1,000 Mcg Tablet) 1,000 mcg PO QAM [facility] Famotidine (Famotidine 20 Mg Tablet) 20 mg PO Q12HR [facility] Last Admin: 10/17/24 20:15 Dose: 20 mg Finasteride (Finasteride 5 Mg Tablet) 5 mg PO DAILY [facility] Gabapentin (Gabapentin 300 Mg Capsule) 300 mg PO QID [facility] Last Admin: 10/17/24 20:14 Dose: 300 mg Heparin Sodium (Porcine) (Heparin Sodium 5,000 Units/Ml Vial) 4,000 units IV PUSH PRN PRN PRN Reason: aPTT less than 55 seconds Heparin Sodium (Porcine) (Heparin Sodium 5,000 Units/Ml Vial) 3,000 units IV PUSH PRN PRN PRN Reason: aPTT 55 - 70 seconds Last Admin: 10/17/24 21:05 Dose: 3,000 units Hydroxychloroquine Sulfate (Hydroxychloroquine Sulfate 200 Mg Tablet) 400 mg PO DAILY [facility] Heparin Sodium/Dextrose (Heparin Sodium/D5w 100 Units/Ml) 25,000 units in 250 mls @ 9 mls/hr IV CONT .Q24H [facility]; Protocol Last Titration: 10/18/24 03:00 Dose: 900 units/hr, 9 mls/hr Levothyroxine Sodium (Levothyroxine Sodium 75 Mcg Tablet) 75 mcg PO DAILY@0630 [facility] Last Admin: 10/18/24 06:06 Dose: 75 mcg Melatonin (Melatonin 5 Mg Tablet) 15 mg PO [facility] Last Admin: 10/17/24 20:14 Dose: 15 mg Morphine Sulfate (Morphine Sulfate (*Crx) 2 Mg/Ml Inj) 2 mg IV PUSH Q2H PRN PRN Reason: Pain Rated 6 or Greater Nitroglycerin (Nitroglycerin Sl 0.4 Mg Tablet) 0.4 mg SUBLINGUAL PRN PRN PRN Reason: Chest Pain Ondansetron HCl (Ondansetron Inj 4 Mg/2 Ml Vial) 4 mg IV PUSH Q4H PRN PRN Reason: Nausea Pantoprazole Sodium (Pantoprazole 40 Mg Tablet) 40 mg PO Q12HR [facility] Last Admin: 10/17/24 20:15 Dose: 40 mg Polyethylene Glycol (Polyethylene Glycol 3350 17 Gm Powd.Pack) 17 gm PO DAILY [facility] Ropinirole HCl (Ropinirole Hcl 1 Mg Tablet) 2 mg PO [facility] Last Admin: 10/17/24 20:15 Dose: 2 mg Ropinirole HCl (Ropinirole Hcl 1 Mg Tablet) 1 mg PO 0700,1530 [facility] Last Admin: 10/18/24 06:06 Dose: 1 mg Fluticasone/Salmeterol (Fluticasone/Salmeterol 115-21 Mcg Inhaler 1 Puff) 2 puff INHALATION Q12HRT [facility] Last Admin: 10/18/24 08:52 Dose: Not Given Tamsulosin HCl (Tamsulosin Hcl 0.4 Mg Capsule) 0.4 mg PO [facility] Last Admin: 10/17/24 20:14 Dose: 0.4 mg Sedation/Anesthesia: No previous sedation/anesthesia problems (including family history). [facility] Past Medical History Medical History CKD (chronic kidney disease) BPH (benign prostatic hyperplasia) Overactive bladder Pneumonitis BPH (benign prostatic hyperplasia) Dementia due to Parkinson's disease Recurrent falls Parkinson disease Hypothyroidism Rheumatoid arthritis Gastroesophageal reflux disease Hiatal hernia with gastroesophageal reflux disease and esophagitis Barretts esophagus Dysphagia Hypertension Rheumatoid arthritis of unspecified site with involvement of other organs and systems Carpal tunnel syndrome on both sides Obstructive sleep apnea With sleep study in 2020 recommending BiPAP RLS (restless legs syndrome) Chronic obstructive pulmonary disease Mild emphysematous changes noted on CT scan 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 Arthritis CHF (congestive heart failure) Echo May 2020: Normal left ventricular systolic function EF 69%, moderate concentric left ventricular hypertrophy, mild left ventricular enlargement, paradoxical septal motion consistent with bundle branch block, diastolic dysfunction grade 1, technically difficult study Coronary artery disease Surgical History Surgical History History of dental muslim Dental implants Status post open reduction with internal fixation of fracture Knee cap Hx of cholecystectomy Status post cataract extraction of both eyes with insertion of intraocular lens History of Osvaldo fundoplication History of tonsillectomy and adenoidectomy History of uvulopalatopharyngoplasty H/O eye surgery Left eye to correct double vision History of four vessel coronary artery bypass graft Family History Family History Father Acute myocardial infarction, Onset Age: 84 Family history of coronary artery disease, Onset Age: 84 Mother Carcinoma of colon, Onset Age: 64 Sibling Family history of coronary artery disease Carcinoma of colon Social History Social History Social History: The patient sold his house in moved in with his daughter after the patient's in 2019. He was 59 years prior to his 's . He ambulates with a walker and/or cane. He used to smoke 5 or 6 cigars a day but quit in 2014. He denies any alcohol use. 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 The patient and his raised 2 of her own children and also raise the patient's sister who was 30 years younger. They took custody of the patient's sister when she was 16 after his mother had . Code status: Full code (however he would not want to be on ventilator for long- term, have a tracheostomy or a feeding tube.) Healthcare power of commercial attorney: Daughter Smoking packs per day: 1 Smoking cigarettes per day: 20.0 Years smoked: 25 Smoking pack-years: 25.00 Smoking status: Former smoker Tobacco type: cigars Smoking end date: 05/11/14 Alcohol intake: former Substance use: never Substance use type: does not use Do You Feel Safe in your Home?: Yes Lack of Transportation: No Lack of Food: Never True Current Housing: I Have Housing Concerned About Future Housing: No Difficulty Paying Gas/Electric Bills: No Difficulty Paying for Meds: No Currently Unemployed: No Education: Trade/Vocational Certificate Difficulty w/ Childcare or Family Care: No Living arrangements: with family Additional living arrangements comments: WITH DAUGHTER Occupation/Education: retired Gender identity (if verbalized by the patient): Male Sexual Orientation (if Verbalized by the Patient): Straight or Heterosexual Spiritual care concerns: No Mod Sed Physical Exam Physical Exam Pre Procedural Exam: Normal: Appearance, Lungs, Heart Rate, Heart Rhythm, Extremities and Skin Hours since solid foods: 12 Hours since liquid intake: 8 Mallampati Classification: class III Internal Medicine - PN: Obj Da Vital Signs Vital Signs: Vital Signs - 24 hr 10/17/24 10:22 10/17/24 10:40 10/17/24 11:41 Temperature 36.7 C Pulse Rate 67 70 54 L Respiratory Rate 17 20 18 Blood Pressure 119/66 118/64 132/65 Pulse Oximetry 96 96 97 Oxygen Delivery 10/17/24 13:58 10/17/24 16:00 10/17/24 19:29 Temperature 36.6 C 36.5 C 36.4 C Pulse Rate 64 66 57 L Respiratory Rate 18 16 18 Blood Pressure 146/65 H 113/56 L 113/56 L Pulse Oximetry 97 97 95 Oxygen Delivery 10/17/24 20:00 10/17/24 20:00 10/17/24 20:34 Temperature Pulse Rate 58 L 63 Respiratory Rate Blood Pressure Pulse Oximetry 91 Oxygen Delivery Room Air Room Air 10/17/24 22:00 10/17/24 23:25 10/18/24 00:00 Temperature 36.4 C Pulse Rate 75 65 Respiratory Rate 18 Blood Pressure 102/50 L Pulse Oximetry 93 93 Oxygen Delivery CPAP 10/18/24 00:00 10/18/24 02:00 10/18/24 02:20 Temperature Pulse Rate 58 L 57 L Respiratory Rate Blood Pressure Pulse Oximetry 58 L Oxygen Delivery CPAP 10/18/24 03:42 10/18/24 04:00 10/18/24 04:00 Temperature 36.4 C L Pulse Rate 56 L 63 Respiratory Rate Blood Pressure 110/52 L Pulse Oximetry 96 93 Oxygen Delivery CPAP 10/18/24 06:00 10/18/24 08:02 Temperature 36.6 C Pulse Rate 65 61 Respiratory Rate 16 Blood Pressure 112/57 L Pulse Oximetry 100 Oxygen Delivery Intake/Output Intake/Output: Intake & Output 10/15/24 10/16/24 10/17/24 10/18/24 23:59 23:59 23:59 23:59 Intake Total 172.7 253.3 Output Total 525 100 Balance -352.3 153.3 Meds/Results Medications: Active Medications Generic Name Dose Route Start Last Admin Trade Name Freq PRN Reason Stop Dose Admin Acetaminophen 650 mg 10/17/24 13:11 Acetaminophen 325 Mg Tablet PO Q4H PRN Pain Rated 5 or Less or Fever Acetaminophen 1,000 mg 10/17/24 21:00 10/17/24 20:14 Acetaminophen 500 Mg Tablet PO 1,000 mg HS [facility] Administration Albuterol 2 puff 10/17/24 16:20 Albuterol Sulfate (*Sp) Aerosol 1 Puff INHALATION QID PRN Shortness Of Breath/Wheezing Aspirin 81 mg 10/18/24 08:00 Aspirin 81 Mg Chewable Tablet PO DAILY@0800 [facility] Bumetanide 2 mg 10/18/24 09:00 Bumetanide 1 Mg Tablet PO DAILY [facility] Carbamazepine 200 mg 10/17/24 21:00 10/17/24 20:15 Carbamazepine 200 Mg Tablet PO 200 mg Q12HR [facility] Administration Carbidopa/Levodopa 2 tablet 10/18/24 08:00 Carbidopa/Levodopa 25/100 Mg Tablet PO 08,13,18 [facility] Cyanocobalamin 1,000 mcg 10/18/24 09:00 Cyanocobalamin 1,000 Mcg Tablet PO QAM [facility] Famotidine 20 mg 10/17/24 21:00 10/17/24 20:15 Famotidine 20 Mg Tablet PO 20 mg Q12HR [facility] Administration Finasteride 5 mg 10/18/24 09:00 Finasteride 5 Mg Tablet PO DAILY [facility] Gabapentin 300 mg 10/17/24 17:00 10/17/24 20:14 Gabapentin 300 Mg Capsule PO 300 mg QID [facility] Administration Heparin Sodium (Porcine) 4,000 units 10/17/24 13:48 Heparin Sodium 5,000 Units/Ml Vial IV PUSH PRN PRN aPTT less than 55 seconds Heparin Sodium (Porcine) 3,000 units 10/17/24 13:48 10/17/24 21:05 Heparin Sodium 5,000 Units/Ml Vial IV PUSH 3,000 units PRN PRN Administration aPTT 55 - 70 seconds Hydroxychloroquine Sulfate 400 mg 10/18/24 09:00 Hydroxychloroquine Sulfate 200 Mg Tablet PO DAILY [facility] Heparin Sodium/Dextrose 25,000 units in 250 mls @ 9 mls/hr 10/17/24 14:00 10/18/24 03:00 Heparin Sodium/D5w 100 Units/Ml IV CONT 900 units/hr .Q24H [facility] 9 mls/hr Titration Protocol 900 UNITS/HR Levothyroxine Sodium 75 mcg 10/18/24 06:30 10/18/24 06:06 Levothyroxine Sodium 75 Mcg Tablet PO 75 mcg DAILY@0630 [facility] Administration Melatonin 15 mg 10/17/24 21:00 10/17/24 20:14 Melatonin 5 Mg Tablet PO 15 mg HS [facility] Administration Morphine Sulfate 2 mg 10/17/24 12:17 Morphine Sulfate (*Crx) 2 Mg/Ml Inj IV PUSH Q2H PRN Pain Rated 6 or Greater Nitroglycerin 0.4 mg 10/17/24 15:46 Nitroglycerin Sl 0.4 Mg Tablet SUBLINGUAL PRN PRN Chest Pain Ondansetron HCl 4 mg 10/17/24 12:17 Ondansetron Inj 4 Mg/2 Ml Vial IV PUSH Q4H PRN Nausea Pantoprazole Sodium 40 mg 10/17/24 21:00 10/17/24 20:15 Pantoprazole 40 Mg Tablet PO 40 mg Q12HR [facility] Administration Polyethylene Glycol 17 gm 10/18/24 09:00 Polyethylene Glycol 3350 17 Gm Powd.Pack PO DAILY [facility] Ropinirole HCl 2 mg 10/17/24 21:00 10/17/24 20:15 Ropinirole Hcl 1 Mg Tablet PO 2 mg HS [facility] Administration Ropinirole HCl 1 mg 10/18/24 07:00 10/18/24 06:06 Ropinirole Hcl 1 Mg Tablet PO 1 mg 0700,1530 [facility] Administration Fluticasone/Salmeterol 2 puff 10/17/24 20:00 10/18/24 08:52 Fluticasone/Salmeterol 115-21 Mcg Inhaler 1 Puff INHALATION Not Given Q12HRT [facility] Tamsulosin HCl 0.4 mg 10/17/24 21:00 10/17/24 20:14 Tamsulosin Hcl 0.4 Mg Capsule PO 0.4 mg HS [facility] Administration Radiology Results: ITS Impressions Chest X-Ray 10/17/24 09:55 Impression: Clear lungs. Status post CABG. Labs 10/18/24 02:57 10/18/24 02:57 Labs: Laboratory Results - last 24 hr 10/17/24 10/17/24 10/17/24 09:22 12:59 15:48 WBC RBC Hgb Hct MCV MCH MCHC RDW Plt Count MPV Immature Gran % (Auto) Neut % (Auto) Lymph % (Auto) Hernando % (Auto) Eos % (Auto) Baso % (Auto) Lymph # (Auto) Hernando # (Auto) Eos # (Auto) Baso # (Auto) Abs Immat Gran (auto) Absolute Neuts (auto) Absolute Nucleated RBC Nucleated RBC % % Immature Plt Fraction PT 13.1 INR 1.0 APTT 29.4 Sodium 138 Potassium 4.0 Chloride 103 Carbon Dioxide 28 Anion Gap 7 BUN 31 H Creatinine 1.15 Estim Creat Clear Calc 40 Estimated GFR 60 Glucose 101 POC Capillary Glucose Hemoglobin A1c 5.4 Calcium 9.1 Magnesium Total Bilirubin 0.5 AST 28 ALT 11 Alkaline Phosphatase 139 H Troponin I 0.019 0.150 H* D 0.760 H* D Total Protein 7.3 Albumin 4.3 Lipase 31 10/17/24 10/17/24 10/17/24 16:13 19:45 20:29 WBC RBC Hgb Hct MCV MCH MCHC RDW Plt Count MPV Immature Gran % (Auto) Neut % (Auto) Lymph % (Auto) Hernando % (Auto) Eos % (Auto) Baso % (Auto) Lymph # (Auto) Hernando # (Auto) Eos # (Auto) Baso # (Auto) Abs Immat Gran (auto) Absolute Neuts (auto) Absolute Nucleated RBC Nucleated RBC % % Immature Plt Fraction PT INR APTT 60.6 H Sodium Potassium Chloride Carbon Dioxide Anion Gap BUN Creatinine Estim Creat Clear Calc Estimated GFR Glucose POC Capillary Glucose 208 H 89 Hemoglobin A1c Calcium Magnesium Total Bilirubin AST ALT Alkaline Phosphatase Troponin I 5.430 H* D Total Protein Albumin Lipase 10/18/24 10/18/24 10/18/24 02:57 08:02 09:04 WBC 5.4 RBC 3.46 L Hgb 11.3 L Hct 34.5 L MCV 99.7 MCH 32.7 MCHC 32.8 RDW 12.6 Plt Count 136 L MPV 10.7 H Immature Gran % (Auto) 0.4 Neut % (Auto) 71.8 Lymph % (Auto) 16.5 L Hernando % (Auto) 8.8 H Eos % (Auto) 1.8 Baso % (Auto) 0.7 Lymph # (Auto) 0.90 Hernando # (Auto) 0.5 Eos # (Auto) 0.1 Baso # (Auto) 0.0 Abs Immat Gran (auto) 0.02 Absolute Neuts (auto) 3.9 Absolute Nucleated RBC 0.000 Nucleated RBC % 0.0 % Immature Plt Fraction 4.6 PT INR APTT 103.3 H 73.8 H Sodium 132 L Potassium 4.3 Chloride 103 Carbon Dioxide 24 Anion Gap 5 BUN 28 H Creatinine 0.98 Estim Creat Clear Calc 45 Estimated GFR > 60 Glucose 96 POC Capillary Glucose 95 Hemoglobin A1c Calcium 8.5 Magnesium 2.2 Total Bilirubin 0.6 AST 52 ALT 6 Alkaline Phosphatase 106 Troponin I 15.200 H* D Total Protein 6.1 L Albumin 3.5 Lipase ASA Classification/Sedation ASA Classification/Sedation ASA Class: III Emergent: No Risks: Risks, benefits and alternatives explained and patient/family accepted plan for sedation. Patient re-evaluated immediately prior to sedation.
--- NOTE | 2024-10-18 09:43 | PCSTNOTE ---
Please refer to the Bedside Swallow Evaluation in the EMR. Please note, silent aspiration cannot be ruled out at bedside.
[2024-10-18] MEDS: GABAPENTIN 300 MG CAPSULE PO ×4 (09:54→20:39)
[2024-10-18] MEDS: ACETAMINOPHEN 325 MG TABLET 650 MG PO ×2 (09:54→18:48)
[2024-10-18] MEDS: CYANOCOBALAMIN 1,000 MCG TABLET 1000 MCG PO (09:55)
[2024-10-18] MEDS: CARBIDOPA/LEVODOPA 25/100 MG TABLET 2 TABLET PO ×3 (09:55→20:39)
[2024-10-18] MEDS: carBAMazepine 200 MG TABLET PO ×2 (09:55→20:39)
[2024-10-18] MEDS: PANTOPRAZOLE 40 MG TABLET PO ×2 (09:55→20:39)
[2024-10-18] MEDS: ASPIRIN 81 MG CHEWABLE TABLET PO (09:55)
[2024-10-18] MEDS: FAMOTIDINE 20 MG TABLET PO ×2 (09:56→20:39)
[2024-10-18] MEDS: HYDROXYCHLOROQUINE SULFATE 200 MG TABLET 400 MG PO (09:57)
[2024-10-18] MEDS: FINASTERIDE 5 MG TABLET PO (09:57)
[2024-10-18 11:37] LABS: Activated Clotting Time 135 SEC (74-137)
--- NOTE | 2024-10-18 12:04 | WPDCARDPROC ---
Cardiac Cath Procedure Note Date of procedure:: 10/18/24 Performing physician:: CATHETERIZATION LABORATORY REPORT Procedure Date: 10/18/2024 Administrative Fellow: James Díaz M.D., [facility]? Referring Physician: Dr. Toro ? Anesthesia: Versed and Fentanyl were ordered and given in my presence at 10:38, procedure ended at 11:25. Supervision of nurse monitored moderate sedation with Versed and Fentanyl was provided for 47 minutes. Total of Versed 1mg and Fentanyl 50mcg were administered by the Chemical Milling Processor RN Velia Travis. Pre-op Diagnosis: Coronary artery disease s/p CABG Post-op Diagnosis: 1. Eyak coronary artery disease as noted below. The RPLV branch (which is unrevascularized with a graft) has a 99% stenosis in the mid portion; RPLV is a heavily calcified artery. Given branch vessel disease, recommend medical management. 2. SVG to RPDA. 3. Patent SVG to OM 4. Patent SVG to Diagonal 5. Unable to visualize the PAGAN due to difficulty in advancing catheter into the left subclavian artery, however, there is retrograde flow into the PAGAN upon angiograms of the SVG-Diagonal, therefore, PAGAN appears to be patent. Recommend outpatient coronary CTA for full delineation and evaluation of the PAGAN. 6. LVEDP 15mmHg. Procedure(s): 1. Moderate sedation 2. Ultrasound-guided access of the right common femoral artery 3. Coronary angiography 4. Bypass graft angiography 5. Left heart cath Access Site: Right common femoral artery Brief History and Clinical Indications: Patient is an 84 year old male with CAD s/p CABG who is referred for [facility] for NSTEMI. All risks, benefits and alternatives to left heart catheterization with or without percutaneous coronary intervention was discussed at length with the patient. Risk of complications including but not limited to bleeding, infection, arrhythmia, stroke, worsening kidney function, blood loss, groin hematoma, limb loss, emergency coronary artery bypass grafting, and even were discussed with the patient and all questions were answered. The patient understood and wished to proceed. Time out called, patient name, date of , medical record number, allergies, procedure performed, identify Administrative Fellow, patient and staff member concurred with accurate data, procedure carried on. Findings: LEFT HEART CATHETERIZATION FINDINGS: 1. Left main: The left main coronary artery is widely patent without any significant obstructive disease. 2. Left anterior descending: There is significant ostial LAD disease. The LAD has a 99% long stenosis in the mid portion. Competitive filling is seen in the distal LAD, along in the second diagonal branch. 3. Left circumflex: There is moderate 60-70% proximal LCX stenosis. 4. Right coronary artery: The RCA is the dominant vessel. The RCA is heavily calcified. The proximal RCA has a heavily calcified moderate stenosis. The mid portion has diffuse mild disease. The distal RCA has a moderate stenosis. The RPLV is a heavily calcified branch with a 99% stenosis in the mid portion. Competitive filling is seen in the mid portion of the RPDA. 5. Bypass grafts: Patent SVG to RPDA. Patent SVG to OM Patent SVG to Diagonal Unable to visualize the PAGAN due to difficulty in advancing catheter into the left subclavian artery, however, there is retrograde flow into the PAGAN upon angiograms of the SVG-Diagonal, therefore, PAGAN appears to be patent. Recommend outpatient coronary CTA for full delineation and evaluation of the PAGAN. 6. Left ventricle: A. End-diastolic pressure 15 mmHg. B. LV gram deferred. C. No significant gradient across aortic valve on catheter pullback. Description of Procedure: Informed consent signed and placed in the chart. Patient transferred to botany laboratory assistant room. Prepped and draped in usual sterile fashion. 2% lidocaine in right groin area. Micropuncture needle used to access right common femoral artery with Seldinger technique under fluoroscopic and ultrasound guidance. J wire advanced, micropuncture cannula placed. Right iliofemoral angiogram performed, access confirmed and micropuncture cannula exchanged for 5-FR sheath. Given the iliac tortuosity, a 5F 45cm sheath was placed. 5F FL 4 diagnostic catheter engaged Left Main Coronary Artery. 5F FR 4 diagnostic catheter engaged Right Coronary Artery. 5F FR 4 diagnostic catheter engaged in SVG to PDA graft. 5F FR 4 diagnostic catheter engaged in the SVG to Diagonal graft. 5F FR 4 diagnostic catheter engaged in the SVG to OM graft. Attempted to advance 5F FR 4 diagnostic catheter into the left subclavian, however, there was difficulty in getting catheter into the left subclavian, and the J-wire would not advance into the subclavian. After multiple attempts, aborted further attempts. Multiple orthogonal angiogram obtained and reviewed 5F Pigtail diagnostic catheter crossed aortic valve to obtain LVEDP, LV angiogram deferred. Hemostasis was achieved by manual pressure. Disposition: Floor Plan: The patient will be monitored in the recovery area. Recommend medical management for NSTEMI. Continue aggressive medical therapy and risk factor modification. ? James Díaz M.D. Interventional Cardiology
[2024-10-18] MEDS: CLOPIDOGREL BISULFATE 300 MG TABLET 600 MG PO (13:15)
[2024-10-18 16:24] LABS: Glucose Point of Care 98 mg/dl (65-105)
--- NOTE | 2024-10-18 17:16 | P.PNIM_ITS ---
Progress Note: A&P Assessment and Plan (1) NSTEMI (non-ST elevated myocardial infarction): Code(s): I21.4 - Non-ST elevation (NSTEMI) myocardial infarction Status: Acute Assessment and Plan: -Presentation to ER 1 hour after onset of chest pain with radiation to left arm -Initial troponin normal but second result elevated -Cardiology consulted, spoke to Dr. Toro -Patient made NPO except meds after midnight -Initiated heparin drip -NSTEM diagnosed -Trend troponin to peak -Possible cardiac cath 10/18/24 -Troponin 0.019 --> 0.150 --> 0.760 --> 5.430 -Draw troponin with each PTT overnight (2) Mobitz type 1 second degree atrioventricular block: Code(s): I44.1 - Atrioventricular block, second degree Status: Acute Assessment and Plan: -Sinus bradycardia with Mobitz Type 1 AV block noted 12:27 EKG -This was taken when second troponin drawn -No STEMI (3) Parkinson's disease: Code(s): G20 - Parkinson's disease Status: Chronic Assessment and Plan: -Known history with dysphagia and peripheral neuropathy as secondary features -Continue home medications as tolerated (4) Obstructive sleep apnea: Code(s): G47.33 - Obstructive sleep apnea (adult) (pediatric) Status: Chronic Assessment and Plan: -BiPAP noted in medical record -Home unit brought to use in Hospital -Dr. Price sees patient in clinic with office visit scheduled for tomorrow. -Dr. Price called to say she would stop by for courtesy visit (5) Hypertension: Code(s): I10 - Essential (primary) hypertension Status: Chronic Assessment and Plan: -Continue home medications, blood pressure reviewed (6) Hypothyroidism: Code(s): E03.9 - Hypothyroidism, unspecified Status: Chronic Assessment and Plan: -Continue home medications (7) Gastroesophageal reflux disease: Code(s): K21.9 - Gastro-esophageal reflux disease without esophagitis Status: Chronic Assessment and Plan: -Continue home medications (8) Dysphagia: Code(s): R13.10 - Dysphagia, unspecified Status: Chronic Assessment and Plan: -Known history dysphagia due to Parkinson's with recurrent bouts of aspiration pneumonia -Patient frequently coughs/chokes on food at home -Consult Speech Therapy for recommendations -previously left lower lobe pneumonia treated with Levaquin but patient was vomiting after each dose, completed 6 days of therapy -right lower lobe now with rhonchi and patient has nonproductive cough, witne ssed choking on food but daughter this afternoon (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: Code(s): J43.9 - Emphysema, unspecified; J98.4 - Other disorders of lung Status: Chronic Assessment and Plan: -Keep sats >90%, use BiPAP at night as tolerated (10) CKD (chronic kidney disease): Code(s): N18.9 - Chronic kidney disease, unspecified Status: Acute Assessment and Plan: -Renal function near baseline on admit -Cr 1.15, BUN 31, estimated CrCl 40, estimated GFR 60 -Monitor labs Plan 84 y/o male with history CAD/CABG presented with Chest pain and was found to have NSTEMI, 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 Subjective Date/time seen: 10/18/24 17:16 Interval history: Chest pain, NSTEMI H&P-Narrative: This is an 84-year-old male patient who was admitted to the hospital for chest pain. Patient reports sitting down to drink coffee and watch the news when he developed sudden onset of left-sided chest pain that radiated to the left arm that he described as a burning sensation 02/17 on arrival. Patient took 325 mg of aspirin at home before coming to the ER. He received IV morphine in the ER which did not help and then nitropaste was applied to the right chest 1 inch which subsequently stopped the pain. Initial troponin was normal in the ER. Chest x-ray was also normal in ER. Patient admitted to the IMU with cardiology consult due to significant cardiac past history including CAD and 4 vessel CABG in 2016. Patient also has a history of Parkinson's, CKD, hypothyroidism, COPD CHF, and MADDIE on BiPAP. Due to Parkinson's patient has neuropathy, dysphagia and frequent falls. He has also had aspiration pneumonia a few times. He was recently on Levaquin but only took 6 pills because they would cause vomiting. Upon admit to the floor, repeat troponin was drawn. Glucose also noted to be somewhat high so A1c ordered. Troponin resulted with significant rise to 0.15 from 0.019. Third troponin later up to 0.760. Cardiology saw patient and plans Echocardiogram and possible cardiac cath tomorrow. Plan is to trend troponin to peak. Evening troponin up to 5.430. Patient remains pain free since pain initially subsided in ER. 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 Review of Systems Review of Systems: All systems reviewed & are unremarkable except as noted in HPI and below Exam Narrative: Patient is comfortable, NAD HEENT: eyes are clear and none icteric LUNGS:CTA HEART: RR S1S2 ABD: BS+, Soft and nontender Lower extremities: no edema SKIN: nonjaundiced Neuro: grossly intact. Objective Data Vital Signs Vital Signs: Vital Signs - 24 hr 10/17/24 19:29 10/17/24 20:00 10/17/24 20:00 Temperature 36.4 C Pulse Rate 57 L 58 L Pulse Rate [Right Pedal (Dorsalis Pedis)] Respiratory Rate 18 Blood Pressure 113/56 L Pulse Oximetry 95 Oxygen Delivery Room Air 10/17/24 20:34 10/17/24 22:00 10/17/24 23:25 Temperature 36.4 C Pulse Rate 63 75 65 Pulse Rate [Right Pedal (Dorsalis Pedis)] Respiratory Rate 18 Blood Pressure 102/50 L Pulse Oximetry 91 93 Oxygen Delivery Room Air 10/18/24 00:00 10/18/24 00:00 10/18/24 02:00 Temperature Pulse Rate 58 L 57 L Pulse Rate [Right Pedal (Dorsalis Pedis)] Respiratory Rate Blood Pressure Pulse Oximetry 93 Oxygen Delivery CPAP 10/18/24 02:20 10/18/24 03:42 10/18/24 04:00 Temperature 36.4 C L Pulse Rate 56 L Pulse Rate [Right Pedal (Dorsalis Pedis)] Respiratory Rate Blood Pressure 110/52 L Pulse Oximetry 58 L 96 93 Oxygen Delivery CPAP CPAP 10/18/24 04:00 10/18/24 06:00 10/18/24 08:00 Temperature Pulse Rate 63 65 59 L Pulse Rate [Right Pedal (Dorsalis Pedis)] Respiratory Rate Blood Pressure Pulse Oximetry Oxygen Delivery 10/18/24 08:02 10/18/24 10:00 10/18/24 12:10 Temperature 36.6 C Pulse Rate 61 62 49 L Pulse Rate [Right Pedal (Dorsalis Pedis)] Respiratory Rate 16 14 Blood Pressure 112/57 L 103/45 L Pulse Oximetry 100 96 Oxygen Delivery Room Air 10/18/24 12:10 10/18/24 12:25 10/18/24 12:25 Temperature Pulse Rate 46 L Pulse Rate [Right Pedal (Dorsalis Pedis)] 48 L 46 L Respiratory Rate 14 Blood Pressure 110/46 L Pulse Oximetry 99 Oxygen Delivery Room Air 10/18/24 12:40 10/18/24 12:40 10/18/24 12:55 Temperature Pulse Rate 50 L Pulse Rate [Right Pedal (Dorsalis Pedis)] 50 L 52 L Respiratory Rate 10 L Blood Pressure 113/43 L Pulse Oximetry 99 Oxygen Delivery Room Air 10/18/24 12:55 10/18/24 13:10 10/18/24 13:10 Temperature Pulse Rate 52 L 52 L Pulse Rate [Right Pedal (Dorsalis Pedis)] 52 L Respiratory Rate 11 L 14 Blood Pressure 104/53 L 125/46 L Pulse Oximetry 97 97 Oxygen Delivery Room Air Room Air 10/18/24 13:31 10/18/24 14:00 10/18/24 14:10 Temperature Pulse Rate 54 L 53 L 52 L Pulse Rate [Right Pedal (Dorsalis Pedis)] Respiratory Rate 16 Blood Pressure 145/56 H Pulse Oximetry 96 Oxygen Delivery 10/18/24 15:07 10/18/24 16:10 Temperature 36.5 C Pulse Rate 51 L 64 Pulse Rate [Right Pedal (Dorsalis Pedis)] Respiratory Rate 18 20 Blood Pressure 141/52 H 133/69 Pulse Oximetry 100 99 Oxygen Delivery Intake/Output Intake/Output: Intake & Output 10/15/24 10/16/24 10/17/24 10/18/24 23:59 23:59 23:59 23:59 Intake Total 172.7 353.3 Output Total 525 100 Balance -352.3 253.3 Meds/Results Medications: Active Medications Generic Name Dose Route Start Last Admin Trade Name Loretta PRN Reason Stop Dose Admin Acetaminophen 650 mg 10/17/24 13:11 10/18/24 09:54 Acetaminophen 325 Mg Tablet PO 650 mg Q4H PRN Administration Pain Rated 5 or Less or Fever Acetaminophen 1,000 mg 10/17/24 21:00 10/17/24 20:14 Acetaminophen 500 Mg Tablet PO 1,000 mg HS CHRISTINE Administration Albuterol 2 puff 10/17/24 16:20 Albuterol Sulfate (*Sp) Aerosol 1 Puff INHALATION QID PRN Shortness Of Breath/Wheezing Aspirin 81 mg 10/18/24 08:00 10/18/24 09:55 Aspirin 81 Mg Chewable Tablet PO 81 mg DAILY@0800 CHRISTINE Administration Bumetanide 2 mg 10/18/24 09:00 10/18/24 09:56 Bumetanide 1 Mg Tablet PO Not Given DAILY CHRISTINE Carbamazepine 200 mg 10/17/24 21:00 10/18/24 09:55 Carbamazepine 200 Mg Tablet PO 200 mg Q12HR CHRISTINE Administration Carbidopa/Levodopa 2 tablet 10/18/24 08:00 10/18/24 15:46 Carbidopa/Levodopa 25/100 Mg Tablet PO 2 tablet 08,13,18 CHRISTINE Administration Clopidogrel Bisulfate 75 mg 10/19/24 09:00 Clopidogrel Bisulfate 75 Mg Tablet PO QAM CHRISTINE Cyanocobalamin 1,000 mcg 10/18/24 09:00 10/18/24 09:55 Cyanocobalamin 1,000 Mcg Tablet PO 1,000 mcg QAM CHRISTINE Administration Famotidine 20 mg 10/17/24 21:00 10/18/24 09:56 Famotidine 20 Mg Tablet PO 20 mg Q12HR CHRISTINE Administration Finasteride 5 mg 10/18/24 09:00 10/18/24 09:57 Finasteride 5 Mg Tablet PO 5 mg DAILY CHRISTINE Administration Gabapentin 300 mg 10/17/24 17:00 10/18/24 15:46 Gabapentin 300 Mg Capsule PO 300 mg QID CHRISTINE Administration Hydroxychloroquine Sulfate 400 mg 10/18/24 09:00 10/18/24 09:57 Hydroxychloroquine Sulfate 200 Mg Tablet PO 400 mg DAILY CHRISTINE Administration Levothyroxine Sodium 75 mcg 10/18/24 06:30 10/18/24 06:06 Levothyroxine Sodium 75 Mcg Tablet PO 75 mcg DAILY@0630 CHRISTINE Administration Melatonin 15 mg 10/17/24 21:00 10/17/24 20:14 Melatonin 5 Mg Tablet PO 15 mg HS CHRISTINE Administration Morphine Sulfate 2 mg 10/17/24 12:17 Morphine Sulfate (*Crx) 2 Mg/Ml Inj IV PUSH Q2H PRN Pain Rated 6 or Greater Nitroglycerin 0.4 mg 10/17/24 15:46 Nitroglycerin Sl 0.4 Mg Tablet SUBLINGUAL PRN PRN Chest Pain Ondansetron HCl 4 mg 10/17/24 12:17 Ondansetron Inj 4 Mg/2 Ml Vial IV PUSH Q4H PRN Nausea Pantoprazole Sodium 40 mg 10/17/24 21:00 10/18/24 09:55 Pantoprazole 40 Mg Tablet PO 40 mg Q12HR CHRISTINE Administration Polyethylene Glycol 17 gm 10/18/24 09:00 10/18/24 09:57 Polyethylene Glycol 3350 17 Gm Powd.Pack PO Not Given DAILY [facility] Ropinirole HCl 2 mg 10/17/24 21:00 10/17/24 20:15 Ropinirole Hcl 1 Mg Tablet PO 2 mg HS CHRISTINE Administration Ropinirole HCl 1 mg 10/18/24 07:00 10/18/24 15:46 Ropinirole Hcl 1 Mg Tablet PO 1 mg 0700,1530 [facility] Administration Fluticasone/Salmeterol 2 puff 10/17/24 20:00 10/18/24 08:52 Fluticasone/Salmeterol 115-21 Mcg Inhaler 1 Puff INHALATION Not Given Q12HRT [facility] Tamsulosin HCl 0.4 mg 10/17/24 21:00 10/17/24 20:14 Tamsulosin Hcl 0.4 Mg Capsule PO 0.4 mg HS CHRISTINE Administration Radiology Results: ITS Impressions Chest X-Ray 10/17/24 09:55 Impression: Clear lungs. Status post CABG. Labs Labs: Laboratory Results - last 24 hr 10/17/24 10/17/24 10/17/24 09:22 19:45 20:29 WBC RBC Hgb Hct MCV MCH MCHC RDW Plt Count MPV Immature Gran % (Auto) Neut % (Auto) Lymph % (Auto) Bryan % (Auto) Eos % (Auto) Baso % (Auto) Lymph # (Auto) Bryan # (Auto) Eos # (Auto) Baso # (Auto) Abs Immat Gran (auto) Absolute Neuts (auto) Absolute Nucleated RBC Nucleated RBC % % Immature Plt Fraction APTT 60.6 H Activ Coag Time Kaolin Sodium Potassium Chloride Carbon Dioxide Anion Gap BUN Creatinine Estim Creat Clear Calc Estimated GFR Glucose POC Capillary Glucose 89 Hemoglobin A1c 5.4 Calcium Magnesium Total Bilirubin AST ALT Alkaline Phosphatase Troponin I 5.430 H* D Total Protein Albumin 10/18/24 10/18/24 10/18/24 02:57 08:02 09:04 WBC 5.4 RBC 3.46 L Hgb 11.3 L Hct 34.5 L MCV 99.7 MCH 32.7 MCHC 32.8 RDW 12.6 Plt Count 136 L MPV 10.7 H Immature Gran % (Auto) 0.4 Neut % (Auto) 71.8 Lymph % (Auto) 16.5 L Bryan % (Auto) 8.8 H Eos % (Auto) 1.8 Baso % (Auto) 0.7 Lymph # (Auto) 0.90 Bryan # (Auto) 0.5 Eos # (Auto) 0.1 Baso # (Auto) 0.0 Abs Immat Gran (auto) 0.02 Absolute Neuts (auto) 3.9 Absolute Nucleated RBC 0.000 Nucleated RBC % 0.0 % Immature Plt Fraction 4.6 APTT 103.3 H 73.8 H Activ Coag Time Kaolin Sodium 132 L Potassium 4.3 Chloride 103 Carbon Dioxide 24 Anion Gap 5 BUN 28 H Creatinine 0.98 Estim Creat Clear Calc 45 Estimated GFR > 60 Glucose 96 POC Capillary Glucose 95 Hemoglobin A1c Calcium 8.5 Magnesium 2.2 Total Bilirubin 0.6 AST 52 ALT 6 Alkaline Phosphatase 106 Troponin I 15.200 H* D Total Protein 6.1 L Albumin 3.5 10/18/24 10/18/24 11:31 16:12 WBC RBC Hgb Hct MCV MCH MCHC RDW Plt Count MPV Immature Gran % (Auto) Neut % (Auto) Lymph % (Auto) Bryan % (Auto) Eos % (Auto) Baso % (Auto) Lymph # (Auto) Bryan # (Auto) Eos # (Auto) Baso # (Auto) Abs Immat Gran (auto) Absolute Neuts (auto) Absolute Nucleated RBC Nucleated RBC % % Immature Plt Fraction APTT Activ Coag Time Kaolin 135 Sodium Potassium Chloride Carbon Dioxide Anion Gap BUN Creatinine Estim Creat Clear Calc Estimated GFR Glucose POC Capillary Glucose 98 Hemoglobin A1c Calcium Magnesium Total Bilirubin AST ALT Alkaline Phosphatase Troponin I Total Protein Albumin Quality VTE Prophylaxis VTE prophylaxis: pharmacologic ordered (Heparin drip on admit)
[2024-10-18 19:54] LABS: Glucose Point of Care 99 mg/dl (65-105)
[2024-10-18] MEDS: FLUTICASONE/SALMETEROL 115-21 MCG INHALER 1 PUFF 2 PUFF INHALATION (20:36)
[2024-10-18] MEDS: TAMSULOSIN HCL 0.4 MG CAPSULE PO (20:38)
[2024-10-18] MEDS: LORazepam (*CRX) 0.5 MG TABLET PO (20:38)
[2024-10-18] MEDS: MELATONIN 5 MG TABLET 15 MG PO (20:38)
[2024-10-18] MEDS: ACETAMINOPHEN 500 MG TABLET 1000 MG PO (20:38)
[2024-10-18] MEDS: rOPINIRole HCL 1 MG TABLET 2 MG PO (20:39)
--- NOTE | 2024-10-18 22:35 | PC.NURSE ---
2230: Update provided to patients Daughter OTP.
[2024-10-19] VITALS (21 sets, daily range): BP systolic 119–145; BP diastolic 51–64; PULSE 57–100; RESP 16–20; TEMP 36.5–37; O2SAT 92–99; BMI 31.1
[2024-10-19] MEDS: MORPHINE SULFATE (*CRX) 2 MG/ML INJ IV PUSH ×3 (04:19→17:00)
[2024-10-19 04:39] LABS: Basophils Percent Auto 0.4 % (0.2-1.2); Eosinophils Absolute Auto 0.1 K/mm3 (0-0.3); Eosinophils Percent Auto 2.4 % (0-4.4); Hematocrit 35.2 % (42.0-52.0); Hemoglobin 11.7 g/dL (14.0-18.0); Immature Granulocyte Absolute 0.01 K/mm3 (0.00-0.031); Immature Granulocyte Percent A 0.2 % (0-0.5); Lymphocytes Absolute Auto 0.59 K/mm3 (0.9-3.2); Lymphocytes Percent Auto 10.9 % (18.3-44.2); Mean Corpuscular HGB Conc 33.2 g/dl (32-36); Mean Corpuscular Hemoglobin 32.6 pg (26-34); Mean Corpuscular Volume 98.1 fl (80-100); Mean Platelet Volume 10.4 fl (7.4-10.4); Monocytes Absolute Auto 0.6 K/mm3 (0.1-0.6); Monocytes Percent Auto 10.4 % (2.6-8.5); Neutrophils Absolute Auto 4.1 K/mm3 (1.3-6.7); Neutrophils Percent Auto 75.7 % (45.5-73.1); Platelet Count Result 149 k/mm3 (150-375); Red Blood Count 3.59 M/mm3 (4.6-6.20); Red Cell Distribution Width 12.6 % (11.5-14.5); White Blood Count 5.4 K/mm3 (4.5-10.0)
[2024-10-19 04:54] LABS: Alanine Aminotransferase 8 U/L (6-50); Albumin Level 3.8 g/dL (3.5-5.1); Alkaline Phosphatase 131 U/L (38-126); Anion Gap 8 mmol/L (4-12); Aspartate Amino Transferase 51 U/L (17-59); Bilirubin,Total 0.8 mg/dL (0.2-1.3); Blood Urea Nitrogen 19 mg/dL (9-20); Calcium 8.9 mg/dL (8.4-10.2); Carbon Dioxide 23 mmol/L (22-30); Chloride 103 mmol/L (98-107); Estimated CRCL calculation 51 ml/min; Estimated Glomerular Filt Rate > 60; Glucose 90 mg/dL (65-110); Magnesium 2.1 mg/dL (1.6-2.3); Potassium 4.2 mmol/L (3.4-5.0); Sodium 134 mmol/L (137-145); Total Protein 6.5 g/dL (6.3-8.2)
[2024-10-19] MEDS: rOPINIRole HCL 1 MG TABLET PO (06:04)
[2024-10-19] MEDS: LEVOTHYROXINE SODIUM 75 MCG TABLET PO (06:04)
[2024-10-19 07:43] LABS: Glucose Point of Care 77 mg/dl (65-105)
[2024-10-19] MEDS: FLUTICASONE/SALMETEROL 115-21 MCG INHALER 1 PUFF 2 PUFF INHALATION ×2 (07:58→20:43)
[2024-10-19] MEDS: GABAPENTIN 300 MG CAPSULE FEED TUBE ×3 (10:00→21:06)
--- NOTE | 2024-10-19 10:30 | PM.PNCARD ---
Progress Note: A&P Assessment and Plan (1) NSTEMI (non-ST elevated myocardial infarction): Code(s): I21.4 - Non-ST elevation (NSTEMI) myocardial infarction Status: Acute Plan 84-year-old man with CAD status post CABG (PAGAN-LAD, SVG-OM1, SVG-D2, SVG-PDA in 2016), chronic diastolic heart failure, hypertension hyperlipidemia, rheumatoid arthritis, obstructive sleep apnea CPAP, and Parkinson's disease presents with chest pain. Non ST-elevation NC Continue aspirin and clopidogrel at least in the short term. He is a fall risk and may only use short term clopidogrel. Will order a troponin to see peak. Will add long-acting nitroglycerin unless contraindication. Patient is bradycardic and further increase or add a beta-amira would likely not be tolerated Coronary artery disease status post CABG -Aspirin 81 mg p.o. daily -Outpatient noted to be statin intolerant, recommend Repatha as outpatient. Chronic diastolic heart failure -Continue Bumex 2 mg p.o. daily Patient sees Dr. Mohr in the clinic Subjective Date/time seen: 10/19/24 10:30 Interval history: Reason for visit: NSTEMI HPI: 84-year-old man with CAD status post CABG (PAGAN-LAD, SVG-OM1, SVG-D2, SVG-PDA in 2016), chronic diastolic heart failure hypertension hyperlipidemia, rheumatoid arthritis, obstructive sleep apnea CPAP, and Parkinson's disease presents with chest pain. It started this morning around 8:45 a.m. with initial symptoms of left arm pain that is also burning sensation with radiation to his left shoulder and eventually to his substernal chest region. He was at home sitting down drinking his coffee watching TV and about to eat a pop tart when this symptom suddenly occurred. For the past year, he has not noted any significant cardiopulmonary symptoms. He is able to walk around the grocery store such as [employer] without any chest discomfort or shortness of breath. Denies any loss of consciousness or palpitations. 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 At home he took aspirin 325 mg with no alleviation of his pain. He quickly came to the emergency room accompanied by his daughter Kaya lopez he lives with at home. He was given morphine with no alleviation of his pain. He was then given nitro paste which did quickly alleviated his pain. He has not had any recurrence of his chest discomfort. No orthopnea or significant lower extremity swelling. He is recovering from a left lower lung pneumonia that he developed last month. Date of service 10/18: Troponins went up to 15. However, patient remains chest pain free. Undergoing swallow evaluation because he keeps aspirating, however, is able to take pills. Date of service 10/19/2024: Still is nauseated and having some dry heaves. Confusion persists but better. No chest pain. Complains of carpal tunnel pain. No shortness of breath Review of Systems Constitutional: Constitutional: Denies body ache(s) ENT: Reports Normal hearing present Cardiovascular: Cardiovascular: Reports as per HPI and Denies chest pain Respiratory: Respiratory: Reports as per HPI Gastrointestinal: Gastrointestinal: Denies abdominal pain Musculoskeletal: Musculoskeletal: Reports arthralgias Exam Narrative: Appears stated age Const: General: comfortable and no acute distress HENMT: Face/Nose/Sinus: Normal nares present Mouth: Yes moist mucous membranes Eyes: General: appearance normal, both eyes and all related structures Sclera: sclerae normal Neck: Neck: no JVD Resp: Effort & Inspection: normal respiratory effort Auscultation: crackles Other: Left-sided crackles and wheeze Cardio: Rate: regular rate Rhythm: regular rhythm Heart sounds: Murmur heart sound present Other: Upper sternal border murmur. GI: Inspection: non-distended Skin: General skin exam: normal color Neuro: Speech: normal speech Extrem: General: no pedal edema Other: Right groin is free of hematoma, ecchymosis or bruit Psych: Mental Status: mental status grossly normal Affect: normal affect Objective Data Vital Signs Vital Signs: Vital Signs - 24 hr 10/18/24 12:10 10/18/24 12:10 10/18/24 12:25 Temperature Pulse Rate 49 L Pulse Rate [Right Pedal (Dorsalis Pedis)] 48 L 46 L Respiratory Rate 14 Blood Pressure 103/45 L Pulse Oximetry 96 Oxygen Delivery Room Air Fraction of Inspired Oxygen 10/18/24 12:25 10/18/24 12:40 10/18/24 12:40 Temperature Pulse Rate 46 L 50 L Pulse Rate [Right Pedal (Dorsalis Pedis)] 50 L Respiratory Rate 14 10 L Blood Pressure 110/46 L 113/43 L Pulse Oximetry 99 99 Oxygen Delivery Room Air Room Air Fraction of Inspired Oxygen 10/18/24 12:55 10/18/24 12:55 10/18/24 13:10 Temperature Pulse Rate 52 L Pulse Rate [Right Pedal (Dorsalis Pedis)] 52 L 52 L Respiratory Rate 11 L Blood Pressure 104/53 L Pulse Oximetry 97 Oxygen Delivery Room Air Fraction of Inspired Oxygen 10/18/24 13:10 10/18/24 13:31 10/18/24 14:00 Temperature Pulse Rate 52 L 54 L 53 L Pulse Rate [Right Pedal (Dorsalis Pedis)] Respiratory Rate 14 Blood Pressure 125/46 L Pulse Oximetry 97 Oxygen Delivery Room Air Fraction of Inspired Oxygen 10/18/24 14:10 10/18/24 15:07 10/18/24 16:00 Temperature 36.5 C Pulse Rate 52 L 51 L 63 Pulse Rate [Right Pedal (Dorsalis Pedis)] Respiratory Rate 16 18 Blood Pressure 145/56 H 141/52 H Pulse Oximetry 96 100 Oxygen Delivery Fraction of Inspired Oxygen 10/18/24 16:10 10/18/24 17:10 10/18/24 18:00 Temperature Pulse Rate 64 55 L 55 L Pulse Rate [Right Pedal (Dorsalis Pedis)] Respiratory Rate 20 18 Blood Pressure 133/69 137/53 L Pulse Oximetry 99 100 Oxygen Delivery Fraction of Inspired Oxygen 10/18/24 19:53 10/18/24 20:00 10/18/24 20:00 Temperature 36.4 C L Pulse Rate 56 L 59 L Pulse Rate [Right Pedal (Dorsalis Pedis)] Respiratory Rate 18 Blood Pressure 124/57 L Pulse Oximetry 98 94 Oxygen Delivery Room Air Fraction of Inspired Oxygen 10/18/24 20:39 10/18/24 20:40 10/18/24 22:00 Temperature Pulse Rate 70 65 64 Pulse Rate [Right Pedal (Dorsalis Pedis)] Respiratory Rate 20 Blood Pressure Pulse Oximetry 94 Oxygen Delivery Room Air Fraction of Inspired Oxygen 10/18/24 23:19 10/19/24 00:00 10/19/24 00:00 Temperature 36.5 C Pulse Rate 59 L 66 Pulse Rate [Right Pedal (Dorsalis Pedis)] Respiratory Rate 20 Blood Pressure 134/64 Pulse Oximetry 99 92 Oxygen Delivery CPAP Room Air Fraction of Inspired Oxygen 10/19/24 00:00 10/19/24 02:00 10/19/24 04:00 Temperature Pulse Rate 62 62 Pulse Rate [Right Pedal (Dorsalis Pedis)] Respiratory Rate Blood Pressure Pulse Oximetry 96 Oxygen Delivery Room Air Fraction of Inspired Oxygen 10/19/24 04:00 10/19/24 04:31 10/19/24 06:00 Temperature 37.0 C Pulse Rate 71 74 57 L Pulse Rate [Right Pedal (Dorsalis Pedis)] Respiratory Rate 20 Blood Pressure 145/56 H Pulse Oximetry 99 Oxygen Delivery Fraction of Inspired Oxygen 10/19/24 07:58 10/19/24 08:00 10/19/24 08:06 Temperature 36.6 C Pulse Rate 63 63 Pulse Rate [Right Pedal (Dorsalis Pedis)] Respiratory Rate 20 Blood Pressure 127/60 Pulse Oximetry 95 98 Oxygen Delivery Room Air Fraction of Inspired Oxygen Intake/Output Intake/Output: Intake & Output 10/16/24 10/17/24 10/18/24 10/19/24 23:59 23:59 23:59 23:59 Intake Total 172.7 353.3 250 Output Total 525 400 451 Balance -352.3 -46.7 -201 Meds/Results Medications: Active Medications Generic Name Dose Route Start Last Admin Trade Name Freq PRN Reason Stop Dose Admin Acetaminophen 650 mg 10/17/24 13:11 10/18/24 18:48 Acetaminophen 325 Mg Tablet PO 650 mg Q4H PRN Administration Pain Rated 5 or Less or Fever Acetaminophen 1,000 mg 10/17/24 21:00 10/18/24 20:38 Acetaminophen 500 Mg Tablet PO 1,000 mg [facility] Administration Albuterol 2 puff 10/17/24 16:20 Albuterol Sulfate (*Sp) Aerosol 1 Puff INHALATION QID PRN Shortness Of Breath/Wheezing Aspirin 81 mg 10/18/24 08:00 10/18/24 09:55 Aspirin 81 Mg Chewable Tablet PO 81 mg DAILY@0800 [facility] Administration Bumetanide 2 mg 10/18/24 09:00 10/18/24 09:56 Bumetanide 1 Mg Tablet PO Not Given DAILY [facility] Carbamazepine 200 mg 10/17/24 21:00 10/18/24 20:39 Carbamazepine 200 Mg Tablet PO 200 mg Q12HR [facility] Administration Carbidopa/Levodopa 2 tablet 10/18/24 08:00 10/18/24 20:39 Carbidopa/Levodopa 25/100 Mg Tablet PO 2 tablet ,,18 [facility] Administration Clopidogrel Bisulfate 75 mg 10/19/24 09:00 Clopidogrel Bisulfate 75 Mg Tablet PO QAM [facility] Cyanocobalamin 1,000 mcg 10/18/24 09:00 10/18/24 09:55 Cyanocobalamin 1,000 Mcg Tablet PO 1,000 mcg QAM [facility] Administration Famotidine 20 mg 10/17/24 21:00 10/18/24 20:39 Famotidine 20 Mg Tablet PO 20 mg Q12HR [facility] Administration Finasteride 5 mg 10/18/24 09:00 10/18/24 09:57 Finasteride 5 Mg Tablet PO 5 mg DAILY [facility] Administration Gabapentin 300 mg 10/17/24 17:00 10/18/24 20:39 Gabapentin 300 Mg Capsule PO 300 mg QID [facility] Administration Hydroxychloroquine Sulfate 400 mg 10/18/24 09:00 10/18/24 09:57 Hydroxychloroquine Sulfate 200 Mg Tablet PO 400 mg DAILY [facility] Administration Levothyroxine Sodium 75 mcg 10/18/24 06:30 10/19/24 06:04 Levothyroxine Sodium 75 Mcg Tablet PO 75 mcg DAILY@0630 [facility] Administration Melatonin 15 mg 10/17/24 21:00 10/18/24 20:38 Melatonin 5 Mg Tablet PO 15 mg HS [facility] Administration Morphine Sulfate 2 mg 10/17/24 12:17 10/19/24 08:27 Morphine Sulfate (*Crx) 2 Mg/Ml Inj IV PUSH 2 mg Q2H PRN Administration Pain Rated 6 or Greater Nitroglycerin 0.4 mg 10/17/24 15:46 Nitroglycerin Sl 0.4 Mg Tablet SUBLINGUAL PRN PRN Chest Pain Ondansetron HCl 4 mg 10/17/24 12:17 Ondansetron Inj 4 Mg/2 Ml Vial IV PUSH Q4H PRN Nausea Pantoprazole Sodium 40 mg 10/17/24 21:00 10/18/24 20:39 Pantoprazole 40 Mg Tablet PO 40 mg Q12HR [facility] Administration Polyethylene Glycol 17 gm 10/18/24 09:00 10/18/24 09:57 Polyethylene Glycol 3350 17 Gm Powd.Pack PO Not Given DAILY [facility]INE Ropinirole HCl 2 mg 10/17/24 21:00 10/18/24 20:39 Ropinirole Hcl 1 Mg Tablet PO 2 mg HS [facility] Administration Ropinirole HCl 1 mg 10/18/24 07:00 10/19/24 06:04 Ropinirole Hcl 1 Mg Tablet PO 1 mg 0700,1530 [facility] Administration Fluticasone/Salmeterol 2 puff 10/17/24 20:00 10/19/24 07:58 Fluticasone/Salmeterol 115-21 Mcg Inhaler 1 Puff INHALATION 2 puff Q12HRT [facility] Administration Tamsulosin HCl 0.4 mg 10/17/24 21:00 10/18/24 20:38 Tamsulosin Hcl 0.4 Mg Capsule PO 0.4 mg HS [facility]INE Administration Radiology Results: ITS Impressions Chest X-Ray 10/17/24 09:55 Impression: Clear lungs. Status post CABG. Labs Labs: Laboratory Results - last 24 hr 10/18/24 10/18/24 10/18/24 11:31 16:12 19:44 WBC RBC Hgb Hct MCV MCH MCHC RDW Plt Count MPV Immature Gran % (Auto) Neut % (Auto) Lymph % (Auto) Wood % (Auto) Eos % (Auto) Baso % (Auto) Lymph # (Auto) Wood # (Auto) Eos # (Auto) Baso # (Auto) Abs Immat Gran (auto) Absolute Neuts (auto) Absolute Nucleated RBC Nucleated RBC % Activ Coag Time Kaolin 135 Sodium Potassium Chloride Carbon Dioxide Anion Gap BUN Creatinine Estim Creat Clear Calc Estimated GFR Glucose POC Capillary Glucose 98 99 Calcium Magnesium Total Bilirubin AST ALT Alkaline Phosphatase Total Protein Albumin 10/19/24 10/19/24 04:29 07:39 WBC 5.4 RBC 3.59 L Hgb 11.7 L Hct 35.2 L MCV 98.1 MCH 32.6 MCHC 33.2 RDW 12.6 Plt Count 149 L MPV 10.4 Immature Gran % (Auto) 0.2 Neut % (Auto) 75.7 H Lymph % (Auto) 10.9 L Wood % (Auto) 10.4 H Eos % (Auto) 2.4 Baso % (Auto) 0.4 Lymph # (Auto) 0.59 L Wood # (Auto) 0.6 Eos # (Auto) 0.1 Baso # (Auto) 0.0 Abs Immat Gran (auto) 0.01 Absolute Neuts (auto) 4.1 Absolute Nucleated RBC 0.000 Nucleated RBC % 0.0 Activ Coag Time Kaolin Sodium 134 L Potassium 4.2 Chloride 103 Carbon Dioxide 23 Anion Gap 8 BUN 19 Creatinine 0.85 Estim Creat Clear Calc 51 Estimated GFR > 60 Glucose 90 POC Capillary Glucose 77 Calcium 8.9 Magnesium 2.1 Total Bilirubin 0.8 AST 51 ALT 8 Alkaline Phosphatase 131 H Total Protein 6.5 Albumin 3.8 Cardiac catheterization LEFT HEART CATHETERIZATION FINDINGS: 1. Left main: The left main coronary artery is widely patent without any significant obstructive disease. 2. Left anterior descending: There is significant ostial LAD disease. The LAD has a 99% long stenosis in the mid portion. Competitive filling is seen in the distal LAD, along in the second diagonal branch. 3. Left circumflex: There is moderate 60-70% proximal LCX stenosis. 4. Right coronary artery: The RCA is the dominant vessel. The RCA is heavily calcified. The proximal RCA has a heavily calcified moderate stenosis. The mid portion has diffuse mild disease. The distal RCA has a moderate stenosis. The RPLV is a heavily calcified branch with a 99% stenosis in the mid portion. Competitive filling is seen in the mid portion of the RPDA. 5. Bypass grafts: Patent SVG to RPDA. Patent SVG to OM Patent SVG to Diagonal Unable to visualize the PAGAN due to difficulty in advancing catheter into the left subclavian artery, however, there is retrograde flow into the PAGAN upon angiograms of the SVG-Diagonal, therefore, PAGAN appears to be patent. Recommend outpatient coronary CTA for full delineation and evaluation of the PAGAN. 6. Left ventricle: A. End-diastolic pressure 15 mmHg. B. LV gram deferred. C. No significant gradient across aortic valve on catheter pullback.
--- NOTE | 2024-10-19 11:31 | PCSTNOTE ---
Please refer to the Modified Barium Swallow (MBS) Evaluation in the EMR. The above pt, known to ST due to h/o dysphagia over the past 5+ years, was seen for a modified barium swallow. 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 Pt came to the ED with chest pain which has been determined to be an VT. Pt exhibited good dentition, clear vocal quality and was able to respond to simple questions and commands. He was seated for a lateral view and was presented with 5 ml amounts of thin liquids via a spoon, pudding consistency barium via a spoon, & moderately thick and mildly thick liquids via a spoon. The oral stages were WFL; during the pharyngeal stage with all consistencies, trace to mild vallecular & pyriform sinus residual occurred indicative of reduced tongue base retraction and laryngeal elevation, respectively. Contents (residual) from both areas, even though a trace to minimal amount, spilled into the laryngeal vestibule after the swallow. Pt appeared to lack sensitivity for most instances of the penetration but had 1 coughing spell during testing. Trace/mild aspiration occurred across all trials (aspiration actually did not overtly occur with thin liquids but risk is high due to the same residual occurring) Impression: severe dysphagia; aspiration was trace/mild Recomendations: NPO; Dobhoff tube feedings; start dysphagia therapy, repeat MBS in a few days.
[2024-10-19 11:42] LABS: Glucose Point of Care 101 mg/dl (65-105)
[2024-10-19 15:54] LABS: Glucose Point of Care 96 mg/dl (65-105)
[2024-10-19] MEDS: HYDROXYCHLOROQUINE SULFATE 200 MG TABLET 400 MG FEED TUBE (16:31)
[2024-10-19] MEDS: rOPINIRole HCL 1 MG TABLET FEED TUBE (16:31)
[2024-10-19] MEDS: BUMETANIDE 1 MG TABLET 2 MG FEED TUBE (16:32)
[2024-10-19] MEDS: CLOPIDOGREL BISULFATE 75 MG TABLET FEED TUBE (16:32)
[2024-10-19] MEDS: ASPIRIN 81 MG CHEWABLE TABLET FEED TUBE (16:32)
[2024-10-19] MEDS: carBAMazepine 200 MG TABLET FEED TUBE ×2 (16:33→21:05)
--- NOTE | 2024-10-19 17:45 | PM.IMPN ---
Progress Note: A&P Assessment and Plan (1) NSTEMI (non-ST elevated myocardial infarction): Code(s): I21.4 - Non-ST elevation (NSTEMI) myocardial infarction Status: Acute Assessment and Plan: -Presentation to ER 1 hour after onset of chest pain with radiation to left arm -Initial troponin normal but second result elevated -Cardiology consulted, spoke to Dr. Toro -Patient made NPO except meds after midnight -Initiated heparin drip -NSTEM diagnosed -Trend troponin to peak -Possible cardiac cath 10/18/24 -Troponin 0.019 --> 0.150 --> 0.760 --> 5.430 -Draw troponin with each PTT overnight (2) Mobitz type 1 second degree atrioventricular block: Code(s): I44.1 - Atrioventricular block, second degree Status: Acute Assessment and Plan: -Sinus bradycardia with Mobitz Type 1 AV block noted 12:27 EKG -This was taken when second troponin drawn -No STEMI (3) Parkinson's disease: Code(s): G20 - Parkinson's disease Status: Chronic Assessment and Plan: -Known history with dysphagia and peripheral neuropathy as secondary features -Continue home medications as tolerated (4) Obstructive sleep apnea: Code(s): G47.33 - Obstructive sleep apnea (adult) (pediatric) Status: Chronic Assessment and Plan: -BiPAP noted in medical record -Home unit brought to use in Hospital -Dr. Price sees patient in clinic with office visit scheduled for tomorrow. -Dr. Price called to say she would stop by for courtesy visit (5) Hypertension: Code(s): I10 - Essential (primary) hypertension Status: Chronic Assessment and Plan: -Continue home medications, blood pressure reviewed (6) Hypothyroidism: Code(s): E03.9 - Hypothyroidism, unspecified Status: Chronic Assessment and Plan: -Continue home medications (7) Gastroesophageal reflux disease: Code(s): K21.9 - Gastro-esophageal reflux disease without esophagitis Status: Chronic Assessment and Plan: -Continue home medications (8) Dysphagia: Code(s): R13.10 - Dysphagia, unspecified Status: Chronic Assessment and Plan: -Known history dysphagia due to Parkinson's with recurrent bouts of aspiration pneumonia -Patient frequently coughs/chokes on food at home -Consult Speech Therapy for recommendations -previously left lower lobe pneumonia treated with Levaquin but patient was vomiting after each dose, completed 6 days of therapy -right lower lobe now with rhonchi and patient has nonproductive cough, witnessed choking on food but daughter this afternoon (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: Code(s): J43.9 - Emphysema, unspecified; J98.4 - Other disorders of lung Status: Chronic Assessment and Plan: -Keep sats >90%, use BiPAP at night as tolerated (10) CKD (chronic kidney disease): Code(s): N18.9 - Chronic kidney disease, unspecified Status: Acute Assessment and Plan: -Renal function near baseline on admit -Cr 1.15, BUN 31, estimated CrCl 40, estimated GFR 60 -Monitor labs Plan 84 y/o male with history CAD/CABG presented with Chest pain and was found to have NSTEMI, on 09/17patient was taken cardiac blood bank laboratory technologist which showed most of the vessels patent, The RCA was heavily calcified and PAGAN was difficulty visualize, cardiac echo showed normal LV function with EF of 65-70% and grade I diastolic dysfunction, patient remains clinically stable cardiology is recommending medical management with plavix and aspirin for short time, will monitor and further recommendation to follow, Subjective Date/time seen: 10/19/24 17:45 Interval history: Chest pain, NSTEMI H&P-Narrative: This is an 84-year-old male patient who was admitted to the hospital for chest pain. Patient reports sitting down to drink coffee and watch the news when he developed sudden onset of left-sided chest pain that radiated to the left arm that he described as a burning sensation 02/17 on arrival. Patient took 325 mg of aspirin at home before coming to the ER. He received IV morphine in the ER which did not help and then nitropaste was applied to the right chest 1 inch which subsequently stopped the pain. Initial troponin was normal in the ER. Chest x-ray was also normal in ER. Patient admitted to the IMU with cardiology consult due to significant cardiac past history including CAD and 4 vessel CABG in 2016. Patient also has a history of Parkinson's, CKD, hypothyroidism, COPD CHF, and MADDIE on BiPAP. Due to Parkinson's patient has neuropathy, dysphagia and frequent falls. He has also had aspiration pneumonia a few times. He was recently on Levaquin but only took 6 pills because they would cause vomiting. Upon admit to the floor, repeat troponin was drawn. Glucose also noted to be somewhat high so A1c ordered. Troponin resulted with significant rise to 0.15 from 0.019. Third troponin later up to 0.760. Cardiology saw patient and plans Echocardiogram and possible cardiac cath tomorrow. Plan is to trend troponin to peak. Evening troponin up to 5.430. Patient remains pain free since pain initially subsided in ER. 84 y/o male with history CAD/CABG presented with Chest pain and was found to have NSTEMI, on 09/17patient was taken cardiac blood bank laboratory technologist which showed most of the vessels patent, The RCA was heavily calcified and PAGAN was difficulty visualize, cardiac echo showed normal LV function with EF of 65-70% and grade I diastolic dysfunction, patient remains clinically stable cardiology is recommending medical management with plavix and aspirin for short time, will monitor and further recommendation to follow, Review of Systems Review of Systems: All systems reviewed & are unremarkable except as noted in HPI and below Exam Narrative: Patient is comfortable, NAD HEENT: eyes are clear and none icteric LUNGS:CTA HEART: RR S1S2 ABD: BS+, Soft and nontender Lower extremities: no edema SKIN: nonjaundiced Neuro: grossly intact. Objective Data Vital Signs Vital Signs: Vital Signs - 24 hr 10/18/24 18:00 10/18/24 19:53 10/18/24 20:00 Temperature 36.4 C L Pulse Rate 55 L 56 L 59 L Respiratory Rate 18 Blood Pressure 124/57 L Pulse Oximetry 98 Oxygen Delivery Fraction of Inspired Oxygen 10/18/24 20:00 10/18/24 20:39 10/18/24 20:40 Temperature Pulse Rate 70 65 Respiratory Rate 20 Blood Pressure Pulse Oximetry 94 94 Oxygen Delivery Room Air Room Air Fraction of Inspired Oxygen 21 10/18/24 22:00 10/18/24 23:19 10/19/24 00:00 Temperature 36.5 C Pulse Rate 64 59 L 66 Respiratory Rate 20 Blood Pressure 134/64 Pulse Oximetry 99 Oxygen Delivery CPAP Fraction of Inspired Oxygen 10/19/24 00:00 10/19/24 00:00 10/19/24 02:00 Temperature Pulse Rate 62 62 Respiratory Rate Blood Pressure Pulse Oximetry 92 Oxygen Delivery Room Air Fraction of Inspired Oxygen 10/19/24 04:00 10/19/24 04:00 10/19/24 04:31 Temperature 37.0 C Pulse Rate 71 74 Respiratory Rate 20 Blood Pressure 145/56 H Pulse Oximetry 96 99 Oxygen Delivery Room Air Fraction of Inspired Oxygen 10/19/24 06:00 10/19/24 07:58 10/19/24 08:00 Temperature Pulse Rate 57 L 63 Respiratory Rate Blood Pressure Pulse Oximetry 95 Oxygen Delivery Room Air Fraction of Inspired Oxygen 10/19/24 08:06 10/19/24 10:00 10/19/24 11:49 Temperature 36.6 C Pulse Rate 63 67 Respiratory Rate 20 Blood Pressure 127/60 Pulse Oximetry 98 Oxygen Delivery Room Air Fraction of Inspired Oxygen 10/19/24 11:58 10/19/24 12:00 10/19/24 12:58 Temperature 36.9 C Pulse Rate 71 71 Respiratory Rate 20 Blood Pressure 123/56 L Pulse Oximetry 96 Oxygen Delivery Room Air Fraction of Inspired Oxygen 10/19/24 14:00 10/19/24 16:02 Temperature 36.7 C Pulse Rate 63 69 Respiratory Rate 20 Blood Pressure 138/61 Pulse Oximetry 97 Oxygen Delivery Fraction of Inspired Oxygen Intake/Output Intake/Output: Intake & Output 10/16/24 10/17/24 10/18/24 10/19/24 23:59 23:59 23:59 23:59 Intake Total 172.7 353.3 250 Output Total 525 400 451 Balance -352.3 -46.7 -201 Meds/Results Medications: Active Medications Generic Name Dose Route Start Last Admin Trade Name Freq PRN Reason Stop Dose Admin Acetaminophen 650 mg 10/17/24 13:11 10/18/24 18:48 Acetaminophen 325 Mg Tablet PO 650 mg Q4H PRN Administration Pain Rated 5 or Less or Fever Acetaminophen 1,000 mg 10/17/24 21:00 10/18/24 20:38 Acetaminophen 500 Mg Tablet PO 1,000 mg HS CHRISTINE Administration Albuterol 2 puff 10/17/24 16:20 Albuterol Sulfate (*Sp) Aerosol 1 Puff INHALATION QID PRN Shortness Of Breath/Wheezing Aspirin 81 mg 10/19/24 15:45 10/19/24 16:32 Aspirin 81 Mg Chewable Tablet FEED TUBE 81 mg DAILY@0800 CHRISTINE Administration Bumetanide 2 mg 10/19/24 15:45 10/19/24 16:32 Bumetanide 1 Mg Tablet FEED TUBE 2 mg DAILY CHRISTINE Administration Carbamazepine 200 mg 10/19/24 15:45 10/19/24 16:33 Carbamazepine 200 Mg Tablet FEED TUBE 200 mg Q12HR [facility] Administration Carbidopa/Levodopa 2 tablet 10/19/24 18:00 Carbidopa/Levodopa 25/100 Mg Tablet FEED TUBE 08,,18 [facility] Clopidogrel Bisulfate 75 mg 10/19/24 15:45 10/19/24 16:32 Clopidogrel Bisulfate 75 Mg Tablet FEED TUBE 75 mg QAM [facility] Administration Cyanocobalamin 1,000 mcg 10/18/24 09:00 10/19/24 11:45 Cyanocobalamin 1,000 Mcg Tablet PO Not Given QAM [facility] Famotidine 20 mg 10/19/24 21:00 Famotidine 20 Mg Tablet FEED TUBE Q12HR [facility] Finasteride 5 mg 10/20/24 09:00 Finasteride 5 Mg Tablet FEED TUBE DAILY [facility] Gabapentin 300 mg 10/19/24 17:00 Gabapentin 300 Mg Capsule FEED TUBE QID [facility] Hydroxychloroquine Sulfate 400 mg 10/19/24 15:50 10/19/24 16:31 Hydroxychloroquine Sulfate 200 Mg Tablet FEED TUBE 400 mg DAILY [facility] Administration Levothyroxine Sodium 75 mcg 10/20/24 06:30 Levothyroxine Sodium 75 Mcg Tablet FEED TUBE DAILY@0630 [facility] Melatonin 15 mg 10/19/24 21:00 Melatonin 5 Mg Tablet FEED TUBE [facility] Morphine Sulfate 2 mg 10/17/24 12:17 10/19/24 17:00 Morphine Sulfate (*Crx) 2 Mg/Ml Inj IV PUSH 2 mg Q2H PRN Administration Pain Rated 6 or Greater Nitroglycerin 0.4 mg 10/17/24 15:46 Nitroglycerin Sl 0.4 Mg Tablet SUBLINGUAL PRN PRN Chest Pain Ondansetron HCl 4 mg 10/17/24 12:17 Ondansetron Inj 4 Mg/2 Ml Vial IV PUSH Q4H PRN Nausea Pantoprazole Sodium 40 mg 10/17/24 21:00 10/19/24 11:45 Pantoprazole 40 Mg Tablet PO Not Given Q12HR [facility] Polyethylene Glycol 17 gm 10/18/24 09:00 10/19/24 11:45 Polyethylene Glycol 3350 17 Gm Powd.Pack PO Not Given DAILY [facility] Ropinirole HCl 2 mg 10/19/24 21:00 Ropinirole Hcl 1 Mg Tablet FEED TUBE HS CHRISTINE Ropinirole HCl 1 mg 10/19/24 15:45 10/19/24 16:31 Ropinirole Hcl 1 Mg Tablet FEED TUBE 1 mg 0700,1530 CHRISTINE Administration Fluticasone/Salmeterol 2 puff 10/17/24 20:00 10/19/24 07:58 Fluticasone/Salmeterol 115-21 Mcg Inhaler 1 Puff INHALATION 2 puff Q12HRT CHRISTINE Administration Tamsulosin HCl 0.4 mg 10/17/24 21:00 10/18/24 20:38 Tamsulosin Hcl 0.4 Mg Capsule PO 0.4 mg HS CHRISTINE Administration Radiology Results: ITS Impressions Chest X-Ray 10/17/24 09:55 Impression: Clear lungs. Status post CABG. Modified Barium Swallow 10/19/24 11:08 IMPRESSION: Pharyngeal dysphagia with laryngeal penetration and trace aspiration with all trials. Please correlate with speech pathologist findings and specific feeding recommendations. Labs Labs: Laboratory Results - last 24 hr 10/18/24 10/19/24 10/19/24 19:44 04:29 07:39 WBC 5.4 RBC 3.59 L Hgb 11.7 L Hct 35.2 L MCV 98.1 MCH 32.6 MCHC 33.2 RDW 12.6 Plt Count 149 L MPV 10.4 Immature Gran % (Auto) 0.2 Neut % (Auto) 75.7 H Lymph % (Auto) 10.9 L [place] % (Auto) 10.4 H Eos % (Auto) 2.4 Baso % (Auto) 0.4 Lymph # (Auto) 0.59 L [place] # (Auto) 0.6 Eos # (Auto) 0.1 Baso # (Auto) 0.0 Abs Immat Gran (auto) 0.01 Absolute Neuts (auto) 4.1 Absolute Nucleated RBC 0.000 Nucleated RBC % 0.0 Sodium 134 L Potassium 4.2 Chloride 103 Carbon Dioxide 23 Anion Gap 8 BUN 19 Creatinine 0.85 Estim Creat Clear Calc 51 Estimated GFR > 60 Glucose 90 POC Capillary Glucose 99 77 Calcium 8.9 Magnesium 2.1 Total Bilirubin 0.8 AST 51 ALT 8 Alkaline Phosphatase 131 H Troponin I Total Protein 6.5 Albumin 3.8 10/19/24 10/19/24 10/19/24 10:50 11:19 15:47 WBC RBC Hgb Hct MCV MCH MCHC RDW Plt Count MPV Immature Gran % (Auto) Neut % (Auto) Lymph % (Auto) [place] % (Auto) Eos % (Auto) Baso % (Auto) Lymph # (Auto) [place] # (Auto) Eos # (Auto) Baso # (Auto) Abs Immat Gran (auto) Absolute Neuts (auto) Absolute Nucleated RBC Nucleated RBC % Sodium Potassium Chloride Carbon Dioxide Anion Gap BUN Creatinine Estim Creat Clear Calc Estimated GFR Glucose POC Capillary Glucose 101 96 Calcium Magnesium Total Bilirubin AST ALT Alkaline Phosphatase Troponin I 4.480 H* Total Protein Albumin Quality VTE Prophylaxis VTE prophylaxis: pharmacologic ordered (Heparin drip on admit)
[2024-10-19] MEDS: CARBIDOPA/LEVODOPA 25/100 MG TABLET 2 TABLET FEED TUBE (19:36)
[2024-10-19] MEDS: ACETAMINOPHEN 500 MG TABLET 1000 MG PO (21:04)
[2024-10-19] MEDS: MELATONIN 5 MG TABLET 15 MG FEED TUBE (21:05)
[2024-10-19] MEDS: rOPINIRole HCL 1 MG TABLET 2 MG FEED TUBE (21:05)
[2024-10-19] MEDS: FAMOTIDINE 20 MG TABLET FEED TUBE (21:06)
[2024-10-19] MEDS: PANTOPRAZOLE SODIUM IV 40 MG VIAL IV PUSH (21:06)
[2024-10-19 21:22] LABS: Glucose Point of Care 129 mg/dl (65-105)
[2024-10-20] VITALS (17 sets, daily range): BP systolic 118–141; BP diastolic 56–110; PULSE 60–79; RESP 16–20; TEMP 36.8–37; O2SAT 92–99
[2024-10-20 05:05] LABS: Basophils Percent Auto 0.5 % (0.2-1.2); Eosinophils Absolute Auto 0.2 K/mm3 (0-0.3); Eosinophils Percent Auto 2.3 % (0-4.4); Hematocrit 37.2 % (42.0-52.0); Hemoglobin 12.4 g/dL (14.0-18.0); Immature Granulocyte Absolute 0.04 K/mm3 (0.00-0.031); Immature Granulocyte Percent A 0.6 % (0-0.5); Lymphocytes Percent Auto 9.4 % (18.3-44.2); Mean Corpuscular HGB Conc 33.3 g/dl (32-36); Mean Corpuscular Hemoglobin 32.4 pg (26-34); Mean Corpuscular Volume 97.1 fl (80-100); Mean Platelet Volume 10.7 fl (7.4-10.4); Monocytes Absolute Auto 0.8 K/mm3 (0.1-0.6); Neutrophils Absolute Auto 4.8 K/mm3 (1.3-6.7); Neutrophils Percent Auto 75.2 % (45.5-73.1); Platelet Count Result 162 k/mm3 (150-375); Red Blood Count 3.83 M/mm3 (4.6-6.20); Red Cell Distribution Width 12.5 % (11.5-14.5); White Blood Count 6.4 K/mm3 (4.5-10.0)
[2024-10-20 05:24] LABS: Alanine Aminotransferase 15 U/L (6-50); Albumin Level 3.9 g/dL (3.5-5.1); Alkaline Phosphatase 128 U/L (38-126); Anion Gap 9 mmol/L (4-12); Aspartate Amino Transferase 43 U/L (17-59); Bilirubin,Total 0.4 mg/dL (0.2-1.3); Blood Urea Nitrogen 24 mg/dL (9-20); Calcium 8.8 mg/dL (8.4-10.2); Carbon Dioxide 26 mmol/L (22-30); Chloride 100 mmol/L (98-107); Estimated CRCL calculation 39 ml/min; Estimated Glomerular Filt Rate > 60; Glucose 140 mg/dL (65-110); Magnesium 2.3 mg/dL (1.6-2.3); Potassium 3.9 mmol/L (3.4-5.0); Sodium 135 mmol/L (137-145); Total Protein 6.7 g/dL (6.3-8.2)
[2024-10-20] MEDS: rOPINIRole HCL 1 MG TABLET FEED TUBE ×2 (06:00→14:38)
[2024-10-20] MEDS: LEVOTHYROXINE SODIUM 75 MCG TABLET FEED TUBE (06:00)
[2024-10-20 06:40] LABS: Glucose Point of Care 122 mg/dl (65-105)
[2024-10-20 07:20] LABS: Glucose Point of Care 143 mg/dl (65-105)
[2024-10-20] MEDS: FLUTICASONE/SALMETEROL 115-21 MCG INHALER 1 PUFF 2 PUFF INHALATION ×2 (08:36→20:54)
--- NOTE | 2024-10-20 09:19 | P.PNCA_ITS ---
Progress Note: A&P Assessment and Plan (1) NSTEMI (non-ST elevated myocardial infarction): Code(s): I21.4 - Non-ST elevation (NSTEMI) myocardial infarction Status: Acute Plan 84-year-old man with CAD status post CABG (PAGAN-LAD, SVG-OM1, SVG-D2, SVG-PDA in 2016), chronic diastolic heart failure, hypertension hyperlipidemia, rheumatoid arthritis, obstructive sleep apnea CPAP, and Parkinson's disease presents with chest pain. Non ST-elevation [place] Continue aspirin and clopidogrel at least in the short term. He is a fall risk and may only use short term clopidogrel. Troponin peak at 15.2, downtrend to 4.48. Add long-acting nitroglycerin unless contraindication. Patient is bradycardic and further increase or add a beta-amira would likely not be tolerated Coronary artery disease status post CABG -Aspirin 81 mg p.o. daily -Outpatient noted to be statin intolerant, recommend Repatha as outpatient. Chronic diastolic heart failure -Continue Bumex 2 mg p.o. daily Patient sees Dr. Mohr in the clinic No further cardiac recommendations to make at this time. Will sign off please call with questions. Subjective Date/time seen: 10/20/24 09:19 Interval history: Reason for visit: NSTEMI HPI: 84-year-old man with CAD status post CABG (PAGAN-LAD, SVG-OM1, SVG-D2, SVG- PDA in 2016), chronic diastolic heart failure hypertension hyperlipidemia, rheumatoid arthritis, obstructive sleep apnea CPAP, and Parkinson's disease presents with chest pain. It started this morning around 8:45 a.m. with initial symptoms of left arm pain that is also burning sensation with radiation to his left shoulder and eventually to his substernal chest region. He was at home sitting down drinking his coffee watching TV and about to eat a pop tart when this symptom suddenly occurred. For the past year, he has not noted any significant cardiopulmonary symptoms. He is able to walk around the grocery store such as [employer] without any chest discomfort or shortness of breath. Denies any loss of consciousness or palpitations. 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 At home he took aspirin 325 mg with no alleviation of his pain. He quickly came to the emergency room accompanied by his daughter Kaya lopez he lives with at home. He was given morphine with no alleviation of his pain. He was then given nitro paste which did quickly alleviated his pain. He has not had any recurrence of his chest discomfort. No orthopnea or significant lower extremity swelling. He is recovering from a left lower lung pneumonia that he developed last month. Date of service 10/18: Troponins went up to 15. However, patient remains chest pain free. Undergoing swallow evaluation because he keeps aspirating, however, is able to take pills. Date of service 10/19/2024: Still is nauseated and having some dry heaves. Confusion persists but better. No chest pain. Complains of carpal tunnel pain. No shortness of breath Date of service 10/20/2024: Has some confusion this morning. Failed swallow study and now has NG tube in place. Complaining of legs bothering him because of restless leg syndrome. No chest pain, shortness of breath Review of Systems Constitutional: Constitutional: Denies body ache(s) ENT: Reports Normal hearing present Cardiovascular: Cardiovascular: Reports as per HPI and Denies chest pain Respiratory: Respiratory: Reports as per HPI Gastrointestinal: Gastrointestinal: Denies abdominal pain Musculoskeletal: Musculoskeletal: Reports arthralgias Neurologic: Reports Normal hearing present Exam Narrative: Appears stated age Const: General: comfortable and no acute distress HENMT: Face/Nose/Sinus: Normal nares present and Foreign body present in naris (NG tube) Mouth: Yes moist mucous membranes Eyes: General: appearance normal, both eyes and all related structures Sclera: sclerae normal Neck: Neck: no JVD Resp: Effort & Inspection: normal respiratory effort Auscultation: crackles Other: Left-sided crackles and wheeze Cardio: Rate: regular rate Rhythm: regular rhythm Heart sounds: Murmur heart sound present Other: Upper sternal border murmur. GI: Inspection: non-distended Skin: General skin exam: normal color Neuro: Cranial nerves: Yes Normal hearing present Speech: normal speech Extrem: General: no pedal edema Other: Right groin is free of hematoma, ecchymosis or bruit Psych: Mental Status: other (intermittent confusion) Affect: normal affect Objective Data Vital Signs Vital Signs: Vital Signs - 24 hr 10/19/24 10:00 10/19/24 11:49 10/19/24 11:58 Temperature 36.9 C Pulse Rate 67 71 Respiratory Rate 20 Blood Pressure 123/56 L Pulse Oximetry 96 Oxygen Delivery Room Air Fraction of Inspired Oxygen 10/19/24 12:00 10/19/24 12:58 10/19/24 14:00 Temperature Pulse Rate 71 63 Respiratory Rate Blood Pressure Pulse Oximetry Oxygen Delivery Room Air Fraction of Inspired Oxygen 10/19/24 16:00 10/19/24 16:02 10/19/24 18:00 Temperature 36.7 C Pulse Rate 74 69 69 Respiratory Rate 20 Blood Pressure 138/61 Pulse Oximetry 97 Oxygen Delivery Fraction of Inspired Oxygen 10/19/24 20:00 10/19/24 20:00 10/19/24 20:00 Temperature 36.5 C Pulse Rate 74 80 Respiratory Rate 16 Blood Pressure 141/57 H Pulse Oximetry 97 Oxygen Delivery Room Air Fraction of Inspired Oxygen 10/19/24 20:44 10/19/24 20:47 10/19/24 21:25 Temperature Pulse Rate 100 100 72 Respiratory Rate 20 20 Blood Pressure Pulse Oximetry 99 92 Oxygen Delivery Room Air BiPAP Fraction of Inspired Oxygen 21 10/19/24 21:45 10/19/24 22:00 10/19/24 23:31 Temperature 36.7 C Pulse Rate 71 68 Respiratory Rate 16 Blood Pressure 119/51 L Pulse Oximetry 96 Oxygen Delivery Room Air Fraction of Inspired Oxygen 10/20/24 00:00 10/20/24 00:00 10/20/24 02:00 Temperature Pulse Rate 68 75 Respiratory Rate Blood Pressure Pulse Oximetry Oxygen Delivery Room Air Fraction of Inspired Oxygen 10/20/24 02:34 10/20/24 03:53 10/20/24 04:00 Temperature 36.8 C Pulse Rate 69 68 Respiratory Rate 16 Blood Pressure 129/56 L Pulse Oximetry 94 92 Oxygen Delivery Room Air Room Air Fraction of Inspired Oxygen 21 10/20/24 04:00 10/20/24 06:00 10/20/24 08:15 Temperature 37.0 C Pulse Rate 65 75 69 Respiratory Rate 18 Blood Pressure 129/62 Pulse Oximetry 99 Oxygen Delivery Fraction of Inspired Oxygen 10/20/24 08:36 10/20/24 08:36 Temperature Pulse Rate 67 67 Respiratory Rate 20 20 Blood Pressure Pulse Oximetry 96 Oxygen Delivery Room Air Fraction of Inspired Oxygen Intake/Output Intake/Output: Intake & Output 10/17/24 10/18/24 10/19/24 10/20/24 23:59 23:59 23:59 23:59 Intake Total 172.7 353.3 250 750 Output Total 294 572 4828 1000 Balance -352.3 -46.7 -1501 -250 Meds/Results Medications: Active Medications Generic Name Dose Route Start Last Admin Trade Name Freq PRN Reason Stop Dose Admin Acetaminophen 650 mg 10/17/24 13:11 10/18/24 18:48 Acetaminophen 325 Mg Tablet PO 650 mg Q4H PRN Administration Pain Rated 5 or Less or Fever Acetaminophen 1,000 mg 10/17/24 21:00 10/19/24 21:04 Acetaminophen 500 Mg Tablet PO 1,000 mg HS CHRISTINE Administration Albuterol 2 puff 10/17/24 16:20 Albuterol Sulfate (*Sp) Aerosol 1 Puff INHALATION QID PRN Shortness Of Breath/Wheezing Aspirin 81 mg 10/19/24 15:45 10/19/24 16:32 Aspirin 81 Mg Chewable Tablet FEED TUBE 81 mg DAILY@0800 CHRISTINE Administration Bumetanide 2 mg 10/19/24 15:45 10/19/24 16:32 Bumetanide 1 Mg Tablet FEED TUBE 2 mg DAILY CHRISTINE Administration Carbamazepine 200 mg 10/19/24 15:45 10/19/24 21:05 Carbamazepine 200 Mg Tablet FEED TUBE 200 mg Q12HR CHRISTINE Administration Carbidopa/Levodopa 2 tablet 10/19/24 18:00 10/19/24 19:36 Carbidopa/Levodopa 25/100 Mg Tablet FEED TUBE 2 tablet 08,13,18 CHRISTINE Administration Clopidogrel Bisulfate 75 mg 10/19/24 15:45 10/19/24 16:32 Clopidogrel Bisulfate 75 Mg Tablet FEED TUBE 75 mg QAM CHRISTINE Administration Cyanocobalamin 1,000 mcg 10/18/24 09:00 10/20/24 07:46 Cyanocobalamin 1,000 Mcg Tablet PO Not Given QAM CHRISTINE Famotidine 20 mg 10/19/24 21:00 10/19/24 21:06 Famotidine 20 Mg Tablet FEED TUBE 20 mg Q12HR CHRISTINE Administration Finasteride 5 mg 10/20/24 09:00 Finasteride 5 Mg Tablet FEED TUBE DAILY CHRISTINE Gabapentin 300 mg 10/19/24 17:00 10/19/24 21:06 Gabapentin 300 Mg Capsule FEED TUBE 300 mg QID CHRISTINE Administration Hydroxychloroquine Sulfate 400 mg 10/19/24 15:50 10/19/24 16:31 Hydroxychloroquine Sulfate 200 Mg Tablet FEED TUBE 400 mg DAILY CHRISTINE Administration Levothyroxine Sodium 75 mcg 10/20/24 06:30 10/20/24 06:00 Levothyroxine Sodium 75 Mcg Tablet FEED TUBE 75 mcg DAILY@0630 CHRISTINE Administration Melatonin 15 mg 10/19/24 21:00 10/19/24 21:05 Melatonin 5 Mg Tablet FEED TUBE 15 mg HS CHRISTINE Administration Morphine Sulfate 2 mg 10/17/24 12:17 10/19/24 17:00 Morphine Sulfate (*Crx) 2 Mg/Ml Inj IV PUSH 2 mg Q2H PRN Administration Pain Rated 6 or Greater Nitroglycerin 0.4 mg 10/17/24 15:46 Nitroglycerin Sl 0.4 Mg Tablet SUBLINGUAL PRN PRN Chest Pain Ondansetron HCl 4 mg 10/17/24 12:17 Ondansetron Inj 4 Mg/2 Ml Vial IV PUSH Q4H PRN Nausea Pantoprazole Sodium 40 mg 10/17/24 21:00 10/19/24 11:45 Pantoprazole 40 Mg Tablet PO Not Given Q12HR CHRISTINE Pantoprazole Sodium 40 mg 10/19/24 21:00 10/19/24 21:06 Pantoprazole Sodium Iv 40 Mg Vial IV PUSH 40 mg Q12HR CHRISTINE Administration Polyethylene Glycol 17 gm 10/18/24 09:00 10/19/24 11:45 Polyethylene Glycol 3350 17 Gm Powd.Pack PO Not Given DAILY CHRISTINE Ropinirole HCl 2 mg 10/19/24 21:00 10/19/24 21:05 Ropinirole Hcl 1 Mg Tablet FEED TUBE 2 mg HS CHRISTINE Administration Ropinirole HCl 1 mg 10/19/24 15:45 10/20/24 06:00 Ropinirole Hcl 1 Mg Tablet FEED TUBE 1 mg 0700,1530 CHRISTINE Administration Fluticasone/Salmeterol 2 puff 10/17/24 20:00 10/20/24 08:36 Fluticasone/Salmeterol 115-21 Mcg Inhaler 1 Puff INHALATION 2 puff Q12HRT CHRISTINE Administration Tamsulosin HCl 0.4 mg 10/17/24 21:00 10/18/24 20:38 Tamsulosin Hcl 0.4 Mg Capsule PO 0.4 mg HS CHRISTINE Administration Radiology Results: ITS Impressions Chest X-Ray 10/17/24 09:55 Impression: Clear lungs. Status post CABG. Modified Barium Swallow 10/19/24 11:08 IMPRESSION: Pharyngeal dysphagia with laryngeal penetration and trace aspiration with all trials. Please correlate with speech pathologist findings and specific feeding recommendations. Labs Labs: Laboratory Results - last 24 hr 10/19/24 10/19/24 10/19/24 10:50 11:19 15:47 WBC RBC Hgb Hct MCV MCH MCHC RDW Plt Count MPV Immature Gran % (Auto) Neut % (Auto) Lymph % (Auto) [place] % (Auto) Eos % (Auto) Baso % (Auto) Lymph # (Auto) [place] # (Auto) Eos # (Auto) Baso # (Auto) Abs Immat Gran (auto) Absolute Neuts (auto) Absolute Nucleated RBC Nucleated RBC % Sodium Potassium Chloride Carbon Dioxide Anion Gap BUN Creatinine Estim Creat Clear Calc Estimated GFR Glucose POC Capillary Glucose 101 96 Calcium Magnesium Total Bilirubin AST ALT Alkaline Phosphatase Troponin I 4.480 H* Total Protein Albumin 10/19/24 10/20/24 10/20/24 21:20 04:35 06:33 WBC 6.4 RBC 3.83 L Hgb 12.4 L Hct 37.2 L MCV 97.1 MCH 32.4 MCHC 33.3 RDW 12.5 Plt Count 162 MPV 10.7 H Immature Gran % (Auto) 0.6 H Neut % (Auto) 75.2 H Lymph % (Auto) 9.4 L [place] % (Auto) 12.0 H Eos % (Auto) 2.3 Baso % (Auto) 0.5 Lymph # (Auto) 0.60 L [place] # (Auto) 0.8 H Eos # (Auto) 0.2 Baso # (Auto) 0.0 Abs Immat Gran (auto) 0.04 H Absolute Neuts (auto) 4.8 Absolute Nucleated RBC 0.000 Nucleated RBC % 0.0 Sodium 135 L Potassium 3.9 Chloride 100 Carbon Dioxide 26 Anion Gap 9 BUN 24 H Creatinine 1.12 Estim Creat Clear Calc 39 Estimated GFR > 60 Glucose 140 H POC Capillary Glucose 129 H 122 H Calcium 8.8 Magnesium 2.3 Total Bilirubin 0.4 AST 43 ALT 15 Alkaline Phosphatase 128 H Troponin I Total Protein 6.7 Albumin 3.9 10/20/24 07:16 WBC RBC Hgb Hct MCV MCH MCHC RDW Plt Count MPV Immature Gran % (Auto) Neut % (Auto) Lymph % (Auto) [place] % (Auto) Eos % (Auto) Baso % (Auto) Lymph # (Auto) [place] # (Auto) Eos # (Auto) Baso # (Auto) Abs Immat Gran (auto) Absolute Neuts (auto) Absolute Nucleated RBC Nucleated RBC % Sodium Potassium Chloride Carbon Dioxide Anion Gap BUN Creatinine Estim Creat Clear Calc Estimated GFR Glucose POC Capillary Glucose 143 H Calcium Magnesium Total Bilirubin AST ALT Alkaline Phosphatase Troponin I Total Protein Albumin
[2024-10-20] MEDS: polyethylene glycoL 3350 17 GM POWD.PACK PO (10:15)
[2024-10-20] MEDS: BUMETANIDE 1 MG TABLET 2 MG FEED TUBE (10:17)
[2024-10-20] MEDS: carBAMazepine 200 MG TABLET FEED TUBE ×2 (10:17→20:55)
[2024-10-20] MEDS: FAMOTIDINE 20 MG TABLET FEED TUBE ×2 (10:18→20:55)
[2024-10-20] MEDS: FINASTERIDE 5 MG TABLET FEED TUBE (10:18)
[2024-10-20] MEDS: CLOPIDOGREL BISULFATE 75 MG TABLET FEED TUBE (10:18)
[2024-10-20] MEDS: ASPIRIN 81 MG CHEWABLE TABLET FEED TUBE (10:19)
[2024-10-20] MEDS: PANTOPRAZOLE SODIUM IV 40 MG VIAL IV PUSH ×2 (10:19→20:55)
[2024-10-20] MEDS: CARBIDOPA/LEVODOPA 25/100 MG TABLET 2 TABLET FEED TUBE ×3 (10:19→17:37)
[2024-10-20 11:26] LABS: Glucose Point of Care 147 mg/dl (65-105)
[2024-10-20] MEDS: HYDROXYCHLOROQUINE SULFATE 200 MG TABLET 400 MG FEED TUBE (14:38)
[2024-10-20] MEDS: GABAPENTIN 300 MG CAPSULE FEED TUBE ×3 (14:38→20:55)
--- NOTE | 2024-10-20 17:55 | P.PNIM_ITS ---
Progress Note: A&P Assessment and Plan (1) NSTEMI (non-ST elevated myocardial infarction): Code(s): I21.4 - Non-ST elevation (NSTEMI) myocardial infarction Status: Acute Assessment and Plan: -Presentation to ER 1 hour after onset of chest pain with radiation to left arm -Initial troponin normal but second result elevated -Cardiology consulted, spoke to Dr. Toro -Patient made NPO except meds after midnight -Initiated heparin drip -NSTEM diagnosed -Trend troponin to peak -Possible cardiac cath 10/18/24 -Troponin 0.019 --> 0.150 --> 0.760 --> 5.430 -Draw troponin with each PTT overnight (2) Mobitz type 1 second degree atrioventricular block: Code(s): I44.1 - Atrioventricular block, second degree Status: Acute Assessment and Plan: -Sinus bradycardia with Mobitz Type 1 AV block noted 12:27 EKG -This was taken when second troponin drawn -No STEMI (3) Parkinson's disease: Code(s): G20 - Parkinson's disease Status: Chronic Assessment and Plan: -Known history with dysphagia and peripheral neuropathy as secondary features -Continue home medications as tolerated (4) Obstructive sleep apnea: Code(s): G47.33 - Obstructive sleep apnea (adult) (pediatric) Status: Chronic Assessment and Plan: -BiPAP noted in medical record -Home unit brought to use in Hospital -Dr. Price sees patient in clinic with office visit scheduled for tomorrow. -Dr. Price called to say she would stop by for courtesy visit (5) Hypertension: Code(s): I10 - Essential (primary) hypertension Status: Chronic Assessment and Plan: -Continue home medications, blood pressure reviewed (6) Hypothyroidism: Code(s): E03.9 - Hypothyroidism, unspecified Status: Chronic Assessment and Plan: -Continue home medications (7) Gastroesophageal reflux disease: Code(s): K21.9 - Gastro-esophageal reflux disease without esophagitis Status: Chronic Assessment and Plan: -Continue home medications (8) Dysphagia: Code(s): R13.10 - Dysphagia, unspecified Status: Chronic Assessment and Plan: -Known history dysphagia due to Parkinson's with recurrent bouts of aspiration pneumonia -Patient frequently coughs/chokes on food at home -Consult Speech Therapy for recommendations -previously left lower lobe pneumonia treated with Levaquin but patient was vomiting after each dose, completed 6 days of therapy -right lower lobe now with rhonchi and patient has nonproductive cough, witne ssed choking on food but daughter this afternoon (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: Code(s): J43.9 - Emphysema, unspecified; J98.4 - Other disorders of lung Status: Chronic Assessment and Plan: -Keep sats >90%, use BiPAP at night as tolerated (10) CKD (chronic kidney disease): Code(s): N18.9 - Chronic kidney disease, unspecified Status: Acute Assessment and Plan: -Renal function near baseline on admit -Cr 1.15, BUN 31, estimated CrCl 40, estimated GFR 60 -Monitor labs Plan 84 y/o male with history CAD/CABG presented with Chest pain and was found to have NSTEMI, on 09/17patient was taken cardiac manufacturing laborer which showed most of the vessels patent, The RCA was heavily calcified and PAGAN was difficulty visualize, cardiac echo showed normal LV function with EF of 65-70% and grade I diastolic dysfunction, patient remains clinically stable cardiology is recommending medical management with plavix and aspirin for short time, patient failed his MBS and NGtube is place for Gtube feeding and medication, patient seem to be hav ing worsening rest leg syndrome, patient is on Requip will continue, will monitor and further recommendation to follow, Subjective Date/time seen: 10/20/24 17:55 Interval history: Chest pain, NSTEMI H&P-Narrative: This is an 84-year-old male patient who was admitted to the hospital for chest pain. Patient reports sitting down to drink coffee and watch the news when he developed sudden onset of left-sided chest pain that radiated to the left arm that he described as a burning sensation 02/17 on arrival. Patient took 325 mg of aspirin at home before coming to the ER. He received IV morphine in the ER which did not help and then nitropaste was applied to the right chest 1 inch which subsequently stopped the pain. Initial troponin was normal in the ER. Chest x-ray was also normal in ER. Patient admitted to the IMU with cardiology consult due to significant cardiac past history including CAD and 4 vessel CABG in 2016. Patient also has a history of Parkinson's, CKD, hypothyroidism, COPD CHF, and MADDIE on BiPAP. Due to Parkinson's patient has neuropathy, dysphagia and frequent falls. He has also had aspiration pneumonia a few times. He was recently on Levaquin but only took 6 pills because they would cause vomiting. Upon admit to the floor, repeat troponin was drawn. Glucose also noted to be somewhat high so A1c ordered. Troponin resulted with significant rise to 0.15 from 0.019. Third troponin later up to 0.760. Cardiology saw patient and plans Echocardiogram and possible cardiac cath tomorrow. Plan is to trend troponin to peak. Evening troponin up to 5.430. Patient remains pain free since pain initially subsided in ER. 84 y/o male with history CAD/CABG presented with Chest pain and was found to have NSTEMI, on 09/17patient was taken cardiac manufacturing laborer which showed most of the vessels patent, The RCA was heavily calcified and PAGAN was difficulty visualize, cardiac echo showed normal LV function with EF of 65-70% and grade I diastolic dysfunction, patient remains clinically stable cardiology is recommending medical management with plavix and aspirin for short time, patient failed his MBS and NGtube is place for Gtube feeding and medication, patient seem to be having worsening rest leg syndrome, patient is on Requip will continue, will monitor and further recommendation to follow, Review of Systems Review of Systems: All systems reviewed & are unremarkable except as noted in HPI and below Exam Narrative: Patient is comfortable, NAD HEENT: eyes are clear and none icteric LUNGS:CTA HEART: RR S1S2 ABD: BS+, Soft and nontender Lower extremities: no edema SKIN: nonjaundiced Neuro: grossly intact. Objective Data Vital Signs Vital Signs: Vital Signs - 24 hr 10/19/24 18:00 10/19/24 20:00 10/19/24 20:00 Temperature 36.5 C Pulse Rate 69 74 Respiratory Rate 16 Blood Pressure 141/57 H Pulse Oximetry 97 Oxygen Delivery Room Air Fraction of Inspired Oxygen 10/19/24 20:00 10/19/24 20:44 10/19/24 20:47 Temperature Pulse Rate 80 100 100 Respiratory Rate 20 20 Blood Pressure Pulse Oximetry 99 Oxygen Delivery Room Air Fraction of Inspired Oxygen 21 10/19/24 21:25 10/19/24 21:45 10/19/24 22:00 Temperature Pulse Rate 72 71 Respiratory Rate Blood Pressure Pulse Oximetry 92 Oxygen Delivery BiPAP Room Air Fraction of Inspired Oxygen 10/19/24 23:31 10/20/24 00:00 10/20/24 00:00 Temperature 36.7 C Pulse Rate 68 68 Respiratory Rate 16 Blood Pressure 119/51 L Pulse Oximetry 96 Oxygen Delivery Room Air Fraction of Inspired Oxygen 10/20/24 02:00 10/20/24 02:34 10/20/24 03:53 Temperature 36.8 C Pulse Rate 75 69 68 Respiratory Rate 16 Blood Pressure 129/56 L Pulse Oximetry 94 92 Oxygen Delivery Room Air Fraction of Inspired Oxygen 21 10/20/24 04:00 10/20/24 04:00 10/20/24 06:00 Temperature Pulse Rate 65 75 Respiratory Rate Blood Pressure Pulse Oximetry Oxygen Delivery Room Air Fraction of Inspired Oxygen 10/20/24 08:00 10/20/24 08:00 10/20/24 08:15 Temperature 37.0 C Pulse Rate 79 69 Respiratory Rate 18 Blood Pressure 129/62 Pulse Oximetry 99 Oxygen Delivery Room Air Fraction of Inspired Oxygen 10/20/24 08:36 10/20/24 08:36 10/20/24 10:00 Temperature Pulse Rate 67 67 74 Respiratory Rate 20 20 Blood Pressure Pulse Oximetry 96 Oxygen Delivery Room Air Fraction of Inspired Oxygen 10/20/24 11:44 10/20/24 12:00 10/20/24 12:00 Temperature 36.8 C Pulse Rate 70 70 Respiratory Rate 18 Blood Pressure 131/62 Pulse Oximetry 97 Oxygen Delivery Room Air Fraction of Inspired Oxygen 10/20/24 14:00 10/20/24 15:42 10/20/24 16:00 Temperature 36.9 C Pulse Rate 66 78 68 Respiratory Rate 20 Blood Pressure 141/110 H Pulse Oximetry 98 Oxygen Delivery Fraction of Inspired Oxygen Intake/Output Intake/Output: Intake & Output 10/17/24 10/18/24 10/19/24 10/20/24 23:59 23:59 23:59 23:59 Intake Total 172.7 353.3 250 750 Output Total 763 309 2158 1900 Balance -352.3 -46.7 -1505 -4835 Meds/Results Medications: Active Medications Generic Name Dose Route Start Last Admin Trade Name Freq PRN Reason Stop Dose Admin Acetaminophen 650 mg 10/20/24 11:50 Acetaminophen Elixir 325 Mg/10.15 Ml Udc FEED TUBE Q4H PRN Pain Rated 5 or Less or Fever Acetaminophen 1,000 mg 10/20/24 21:00 Acetaminophen Elixir 325 Mg/10.15 Ml Udc FEED TUBE HS CHRISTINE Albuterol 2 puff 10/17/24 16:20 Albuterol Sulfate (*Sp) Aerosol 1 Puff INHALATION QID PRN Shortness Of Breath/Wheezing Aspirin 81 mg 10/19/24 15:45 10/20/24 10:19 Aspirin 81 Mg Chewable Tablet FEED TUBE 81 mg DAILY@0800 CHRISTINE Administration Bumetanide 2 mg 10/19/24 15:45 10/20/24 10:17 Bumetanide 1 Mg Tablet FEED TUBE 2 mg DAILY CHRISTINE Administration Carbamazepine 200 mg 10/19/24 15:45 10/20/24 10:17 Carbamazepine 200 Mg Tablet FEED TUBE 200 mg Q12HR CHRISTINE Administration Carbidopa/Levodopa 2 tablet 10/19/24 18:00 10/20/24 17:37 Carbidopa/Levodopa 25/100 Mg Tablet FEED TUBE 2 tablet 08,,18 CHRISTINE Administration Clopidogrel Bisulfate 75 mg 10/19/24 15:45 10/20/24 10:18 Clopidogrel Bisulfate 75 Mg Tablet FEED TUBE 75 mg QAM CHRISTINE Administration Cyanocobalamin 1,000 mcg 10/18/24 09:00 10/20/24 07:46 Cyanocobalamin 1,000 Mcg Tablet PO Not Given QAM CHRISTINE Famotidine 20 mg 10/19/24 21:00 10/20/24 10:18 Famotidine 20 Mg Tablet FEED TUBE 20 mg Q12HR CHRISTINE Administration Finasteride 5 mg 10/20/24 09:00 10/20/24 10:18 Finasteride 5 Mg Tablet FEED TUBE 5 mg DAILY CHRISTINE Administration Gabapentin 300 mg 10/19/24 17:00 10/20/24 17:37 Gabapentin 300 Mg Capsule FEED TUBE 300 mg QID CHRISTINE Administration Hydroxychloroquine Sulfate 400 mg 10/19/24 15:50 10/20/24 14:38 Hydroxychloroquine Sulfate 200 Mg Tablet FEED TUBE 400 mg DAILY CHRISTINE Administration Levothyroxine Sodium 75 mcg 10/20/24 06:30 10/20/24 06:00 Levothyroxine Sodium 75 Mcg Tablet FEED TUBE 75 mcg DAILY@0630 CHRISTINE Administration Melatonin 15 mg 10/19/24 21:00 10/19/24 21:05 Melatonin 5 Mg Tablet FEED TUBE 15 mg HS CHRISTINE Administration Morphine Sulfate 2 mg 10/17/24 12:17 10/19/24 17:00 Morphine Sulfate (*Crx) 2 Mg/Ml Inj IV PUSH 2 mg Q2H PRN Administration Pain Rated 6 or Greater Nitroglycerin 0.4 mg 10/17/24 15:46 Nitroglycerin Sl 0.4 Mg Tablet SUBLINGUAL PRN PRN Chest Pain Ondansetron HCl 4 mg 10/17/24 12:17 Ondansetron Inj 4 Mg/2 Ml Vial IV PUSH Q4H PRN Nausea Pantoprazole Sodium 40 mg 10/17/24 21:00 10/19/24 11:45 Pantoprazole 40 Mg Tablet PO Not Given Q12HR CHRISTINE Pantoprazole Sodium 40 mg 10/19/24 21:00 10/20/24 10:19 Pantoprazole Sodium Iv 40 Mg Vial IV PUSH 40 mg Q12HR CHRISTINE Administration Polyethylene Glycol 17 gm 10/18/24 09:00 10/20/24 10:15 Polyethylene Glycol 3350 17 Gm Powd.Pack PO 17 gm DAILY CHRISTINE Administration Ropinirole HCl 2 mg 10/19/24 21:00 10/19/24 21:05 Ropinirole Hcl 1 Mg Tablet FEED TUBE 2 mg HS CHRISTINE Administration Ropinirole HCl 1 mg 10/19/24 15:45 10/20/24 14:38 Ropinirole Hcl 1 Mg Tablet FEED TUBE 1 mg 0700,1530 CHRISTINE Administration Fluticasone/Salmeterol 2 puff 10/17/24 20:00 10/20/24 08:36 Fluticasone/Salmeterol 115-21 Mcg Inhaler 1 Puff INHALATION 2 puff Q12HRT CHRISTINE Administration Tamsulosin HCl 0.4 mg 10/17/24 21:00 10/18/24 20:38 Tamsulosin Hcl 0.4 Mg Capsule PO 0.4 mg HS CHRISTINE Administration Radiology Results: ITS Impressions Chest X-Ray 10/17/24 09:55 Impression: Clear lungs. Status post CABG. Modified Barium Swallow 10/19/24 11:08 IMPRESSION: Pharyngeal dysphagia with laryngeal penetration and trace aspiration with all trials. Please correlate with speech pathologist findings and specific feeding recommendations. Labs Labs: Laboratory Results - last 24 hr 10/19/24 10/20/24 10/20/24 21:20 04:35 06:33 WBC 6.4 RBC 3.83 L Hgb 12.4 L Hct 37.2 L MCV 97.1 MCH 32.4 MCHC 33.3 RDW 12.5 Plt Count 162 MPV 10.7 H Immature Gran % (Auto) 0.6 H Neut % (Auto) 75.2 H Lymph % (Auto) 9.4 L Hall % (Auto) 12.0 H Eos % (Auto) 2.3 Baso % (Auto) 0.5 Lymph # (Auto) 0.60 L Hall # (Auto) 0.8 H Eos # (Auto) 0.2 Baso # (Auto) 0.0 Abs Immat Gran (auto) 0.04 H Absolute Neuts (auto) 4.8 Absolute Nucleated RBC 0.000 Nucleated RBC % 0.0 Sodium 135 L Potassium 3.9 Chloride 100 Carbon Dioxide 26 Anion Gap 9 BUN 24 H Creatinine 1.12 Estim Creat Clear Calc 39 Estimated GFR > 60 Glucose 140 H POC Capillary Glucose 129 H 122 H Calcium 8.8 Magnesium 2.3 Total Bilirubin 0.4 AST 43 ALT 15 Alkaline Phosphatase 128 H Total Protein 6.7 Albumin 3.9 10/20/24 10/20/24 07:16 11:07 WBC RBC Hgb Hct MCV MCH MCHC RDW Plt Count MPV Immature Gran % (Auto) Neut % (Auto) Lymph % (Auto) Hall % (Auto) Eos % (Auto) Baso % (Auto) Lymph # (Auto) Hall # (Auto) Eos # (Auto) Baso # (Auto) Abs Immat Gran (auto) Absolute Neuts (auto) Absolute Nucleated RBC Nucleated RBC % Sodium Potassium Chloride Carbon Dioxide Anion Gap BUN Creatinine Estim Creat Clear Calc Estimated GFR Glucose POC Capillary Glucose 143 H 147 H Calcium Magnesium Total Bilirubin AST ALT Alkaline Phosphatase Total Protein Albumin Quality VTE Prophylaxis VTE prophylaxis: pharmacologic ordered (Heparin drip on admit)
[2024-10-20 17:59] LABS: Glucose Point of Care 144 mg/dl (65-105)
[2024-10-20] MEDS: MELATONIN 5 MG TABLET 15 MG FEED TUBE (20:55)
[2024-10-20] MEDS: rOPINIRole HCL 1 MG TABLET 2 MG FEED TUBE (20:55)
[2024-10-20] MEDS: ACETAMINOPHEN ELIXIR 325 MG/10.15 ML UDC 1000 MG FEED TUBE (20:55)
--- NOTE | 2024-10-20 22:51 | PC.NURSE ---
pt transfered to 345 report given to Zara
--- NOTE | 2024-10-20 22:52 | ADMGEN ---
This patient, Kellee Bearden, was admitted to Medical Room 345-01. Patient/family oriented to hospital policies and general routines including ID bracelet, bed and alarms, visiting hours, pain management, procedures, bathroom and other care routines, personal items, smoking policy, room service/diet, and visiting hours. Information on how to activate the Rapid Response Team has been discussed. Patient/Family are encouraged to report perceived risks to care and to ask questions if they do not understand what they are told or what they should do.
[2024-10-21] VITALS (11 sets, daily range): BP systolic 114–138; BP diastolic 52–70; PULSE 57–67; RESP 18–20; TEMP 35.6–36.9; O2SAT 96–100
[2024-10-21 00:46] LABS: Glucose Point of Care 169 mg/dl (65-105)
[2024-10-21] MEDS: LEVOTHYROXINE SODIUM 75 MCG TABLET FEED TUBE (06:01)
[2024-10-21] MEDS: rOPINIRole HCL 1 MG TABLET FEED TUBE ×2 (06:02→16:31)
[2024-10-21 06:04] LABS: Basophils Percent Auto 0.4 % (0.2-1.2); Eosinophils Absolute Auto 0.3 K/mm3 (0-0.3); Eosinophils Percent Auto 3.4 % (0-4.4); Hematocrit 39.4 % (42.0-52.0); Immature Granulocyte Absolute 0.04 K/mm3 (0.00-0.031); Immature Granulocyte Percent A 0.5 % (0-0.5); Lymphocytes Absolute Auto 0.84 K/mm3 (0.9-3.2); Lymphocytes Percent Auto 10.6 % (18.3-44.2); Mean Corpuscular Hemoglobin 32.5 pg (26-34); Mean Corpuscular Volume 98.5 fl (80-100); Mean Platelet Volume 10.9 fl (7.4-10.4); Monocytes Absolute Auto 1.1 K/mm3 (0.1-0.6); Neutrophils Absolute Auto 5.7 K/mm3 (1.3-6.7); Neutrophils Percent Auto 71.1 % (45.5-73.1); Platelet Count Result 170 k/mm3 (150-375); Red Cell Distribution Width 12.7 % (11.5-14.5)
[2024-10-21 06:37] LABS: Glucose Point of Care 130 mg/dl (65-105)
[2024-10-21 06:45] LABS: Alanine Aminotransferase 13 U/L (6-50); Alkaline Phosphatase 139 U/L (38-126); Anion Gap 7 mmol/L (4-12); Aspartate Amino Transferase 36 U/L (17-59); Bilirubin,Total 0.5 mg/dL (0.2-1.3); Blood Urea Nitrogen 31 mg/dL (9-20); Calcium 9.1 mg/dL (8.4-10.2); Carbon Dioxide 32 mmol/L (22-30); Chloride 96 mmol/L (98-107); Estimated CRCL calculation 36 ml/min; Estimated Glomerular Filt Rate 57; Glucose 119 mg/dL (65-110); Magnesium 2.4 mg/dL (1.6-2.3); Potassium 3.9 mmol/L (3.4-5.0); Sodium 135 mmol/L (137-145)
[2024-10-21] MEDS: FLUTICASONE/SALMETEROL 115-21 MCG INHALER 1 PUFF 2 PUFF INHALATION ×2 (08:41→20:05)
[2024-10-21] MEDS: BUMETANIDE 1 MG TABLET 2 MG FEED TUBE (08:59)
[2024-10-21] MEDS: ASPIRIN 81 MG CHEWABLE TABLET FEED TUBE (08:59)
[2024-10-21] MEDS: FAMOTIDINE 20 MG TABLET FEED TUBE ×2 (08:59→20:49)
[2024-10-21] MEDS: CLOPIDOGREL BISULFATE 75 MG TABLET FEED TUBE (08:59)
[2024-10-21] MEDS: HYDROXYCHLOROQUINE SULFATE 200 MG TABLET 400 MG FEED TUBE (08:59)
[2024-10-21] MEDS: CYANOCOBALAMIN 1,000 MCG TABLET 1000 MCG FEED TUBE (08:59)
[2024-10-21] MEDS: GABAPENTIN 300 MG CAPSULE FEED TUBE ×4 (08:59→20:48)
[2024-10-21] MEDS: FINASTERIDE 5 MG TABLET FEED TUBE (09:02)
[2024-10-21] MEDS: PANTOPRAZOLE SODIUM IV 40 MG VIAL IV PUSH ×2 (09:02→20:49)
[2024-10-21] MEDS: polyethylene glycoL 3350 17 GM POWD.PACK FEED TUBE (09:03)
[2024-10-21] MEDS: CARBIDOPA/LEVODOPA 25/100 MG TABLET 2 TABLET FEED TUBE ×3 (09:05→18:05)
[2024-10-21] MEDS: carBAMazepine 200 MG TABLET FEED TUBE ×2 (09:14→20:48)
--- NOTE | 2024-10-21 10:17 | PCNFU ---
Nutrition Follow-Up Complete: Inability to meet estimated nutrition needs PO related to dysphagia as evidenced by need for full tube feeding Meet estimated nutrition needs - Goal is being met with NG tube feeding Goal: Pt current nutrition is NG tube feeding: Jevity 1.5 @ 60 ml/h, running at goal. 150 ml flushes q 4 h. Nutrition recommendation: Continue with current orders. Discussed with MD. Agree with current orders. Last recorded weight is 77.8 kg. Bowel Motility: +1 BM 10/20/24 Labs Reviewed: Hgb 13.0, Hct 39.4, Na 135, BUN 31, Glu 119 Meds Noted: Bumex Skin: No skin issues Additional Notes: Jevity 1.5 @ 60 ml/h, running at goal. 150 ml flushes q 4 h. Provides 1980 kcal, 84 g protein, 1003 ml free water from formula. 1900 ml total water with flushes. Discussed labs with MD, will continue current orders. Probable repeat MBS on Thursday, re-evaluate at that point. Monitor tube feeding orders, rate, tolerance, output, labs, weights Follow up Thursday/Thursday
[2024-10-21 11:56] LABS: Glucose Point of Care 156 mg/dl (65-105)
--- NOTE | 2024-10-21 12:48 | P.PNIM_ITS ---
Progress Note: A&P Assessment and Plan (1) NSTEMI (non-ST elevated myocardial infarction): Code(s): I21.4 - Non-ST elevation (NSTEMI) myocardial infarction Status: Acute Assessment and Plan: -Presentation to ER 1 hour after onset of chest pain with radiation to left arm -Initial troponin normal but second result elevated -Cardiology consulted, spoke to Dr. Toro -Patient made NPO except meds after midnight -Initiated heparin drip -NSTEM diagnosed -Trend troponin to peak -Possible cardiac cath 10/18/24 -Troponin 0.019 --> 0.150 --> 0.760 --> 5.430 -Draw troponin with each PTT overnight (2) Mobitz type 1 second degree atrioventricular block: Code(s): I44.1 - Atrioventricular block, second degree Status: Acute Assessment and Plan: -Sinus bradycardia with Mobitz Type 1 AV block noted 12:27 EKG -This was taken when second troponin drawn -No STEMI (3) Parkinson's disease: Code(s): G20 - Parkinson's disease Status: Chronic Assessment and Plan: -Known history with dysphagia and peripheral neuropathy as secondary features -Continue home medications as tolerated (4) Obstructive sleep apnea: Code(s): G47.33 - Obstructive sleep apnea (adult) (pediatric) Status: Chronic Assessment and Plan: -BiPAP noted in medical record -Home unit brought to use in Hospital -Dr. Price sees patient in clinic with office visit scheduled for tomorrow. -Dr. Price called to say she would stop by for courtesy visit (5) Hypertension: Code(s): I10 - Essential (primary) hypertension Status: Chronic Assessment and Plan: -Continue home medications, blood pressure reviewed (6) Hypothyroidism: Code(s): E03.9 - Hypothyroidism, unspecified Status: Chronic Assessment and Plan: -Continue home medications (7) Gastroesophageal reflux disease: Code(s): K21.9 - Gastro-esophageal reflux disease without esophagitis Status: Chronic Assessment and Plan: -Continue home medications (8) Dysphagia: Code(s): R13.10 - Dysphagia, unspecified Status: Chronic Assessment and Plan: -Known history dysphagia due to Parkinson's with recurrent bouts of aspiration pneumonia -Patient frequently coughs/chokes on food at home -Consult Speech Therapy for recommendations -previously left lower lobe pneumonia treated with Levaquin but patient was vomiting after each dose, completed 6 days of therapy -right lower lobe now with rhonchi and patient has nonproductive cough, witne ssed choking on food but daughter this afternoon (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 Patient reports sitting down to drink coffee and watch the news when he developed sudden onset of left-sided chest pain that radiated to the left arm that he described as a burning sensation 10/10 on arrival. Patient took 325 mg of aspirin at home before coming to the ER. He received IV morphine in the ER which did not help and then nitropaste was applied to the right chest 1 inch which subsequently stopped the pain. Initial troponin was normal in the ER. C hest x-ray was also normal in ER. Subsequent troponin level significantly elevated to 15.[address] elevation [place]. Patient underwent cardiac catheterization which showed most of the vessels patent RCA was heavily calcified and PAGAN was difficult to visualize. Echo with normal LV function EF 65-70% and grade 1 diastolic dysfunction. Medical management with dual antiplatelet therapy short-term planned along with long- acting nitroglycerin. No further chest pain History of recurrent aspiration pneumonias Dysphagia failed MBS. NG in place and tube feed ongoing. Repeat MBS planned on Thursday Restless leg syndrome on Requip Frequent falls Parkinson's disease Peripheral neuropathy CAD and 4 vessel CABG in 2016. CKD stage III Rheumatoid arthritis Hypothyroidism Congestive heart failure diastolic MADDIE on BiPAP DVT prophylaxis start Lovenox Code status full code Subjective Date/time seen: 10/21/24 12:48 Interval history: No overnight events. Feels better. Still has some cough but improved. Has NG in place. Work with therapy earlier today. Daughter at bedside and discussed with her. Review of Systems Review of Systems: All systems reviewed & are unremarkable except as noted in HPI and below Exam Narrative: Patient is comfortable, NAD HEENT: eyes are clear and none icteric NG in place LUNGS:CTA HEART: RR S1S2 ABD: BS+, Soft and nontender Lower extremities: no edema SKIN: nonjaundiced Neuro: grossly intact. Objective Data Vital Signs Vital Signs: Vital Signs - 24 hr 10/20/24 14:00 10/20/24 15:42 10/20/24 16:00 Temperature 98.4 F Pulse Rate 66 78 68 Respiratory Rate 20 Blood Pressure 141/110 H Pulse Oximetry 98 Oxygen Delivery 10/20/24 18:00 10/20/24 20:00 10/20/24 20:00 Temperature Pulse Rate 70 60 60 Respiratory Rate 20 Blood Pressure Pulse Oximetry 98 Oxygen Delivery Room Air 10/20/24 20:00 10/21/24 00:00 10/21/24 04:00 Temperature 98.6 F Pulse Rate 66 57 L 58 L Respiratory Rate 18 Blood Pressure 118/58 L Pulse Oximetry 98 Oxygen Delivery 10/21/24 05:11 10/21/24 08:04 10/21/24 08:43 Temperature 97.8 F Pulse Rate 65 61 Respiratory Rate 18 Blood Pressure 138/61 Pulse Oximetry 96 97 Oxygen Delivery Room Air 10/21/24 08:43 Temperature Pulse Rate 67 Respiratory Rate 20 Blood Pressure Pulse Oximetry Oxygen Delivery Intake/Output Intake/Output: Intake & Output 10/18/24 10/19/24 10/20/24 10/21/24 23:59 23:59 23:59 23:59 Intake Total 353.3 250 750 736 Output Total 400 1751 2200 250 Balance -46.7 -1501 -1450 486 Meds/Results Medications: Active Medications Generic Name Dose Route Start Last Admin Trade Name Freq PRN Reason Stop Dose Admin Acetaminophen 650 mg 10/20/24 11:50 Acetaminophen Elixir 325 Mg/10.15 Ml Udc FEED TUBE Q4H PRN Pain Rated 5 or Less or Fever Acetaminophen 1,000 mg 10/20/24 21:00 10/20/24 20:55 Acetaminophen Elixir 325 Mg/10.15 Ml Udc FEED TUBE 1,000 mg HS CHRISTINE Administration Albuterol 2 puff 10/17/24 16:20 Albuterol Sulfate (*Sp) Aerosol 1 Puff INHALATION QID PRN Shortness Of Breath/Wheezing Aspirin 81 mg 10/19/24 15:45 10/21/24 08:59 Aspirin 81 Mg Chewable Tablet FEED TUBE 81 mg DAILY@0800 CHRISTINE Administration Bumetanide 2 mg 10/19/24 15:45 10/21/24 08:59 Bumetanide 1 Mg Tablet FEED TUBE 2 mg DAILY CHRISTINE Administration Carbamazepine 200 mg 10/19/24 15:45 10/21/24 09:14 Carbamazepine 200 Mg Tablet FEED TUBE 200 mg Q12HR CHRISTINE Administration Carbidopa/Levodopa 2 tablet 10/19/24 18:00 10/21/24 12:28 Carbidopa/Levodopa 25/100 Mg Tablet FEED TUBE 2 tablet CHRISTINE Administration Clopidogrel Bisulfate 75 mg 10/19/24 15:45 10/21/24 08:59 Clopidogrel Bisulfate 75 Mg Tablet FEED TUBE 75 mg QAM CHRISTINE Administration Cyanocobalamin 1,000 mcg 10/21/24 09:00 10/21/24 08:59 Cyanocobalamin 1,000 Mcg Tablet FEED TUBE 1,000 mcg QAM CHRISTINE Administration Famotidine 20 mg 10/19/24 21:00 10/21/24 08:59 Famotidine 20 Mg Tablet FEED TUBE 20 mg Q12HR CHRISTINE Administration Finasteride 5 mg 10/20/24 09:00 10/21/24 09:02 Finasteride 5 Mg Tablet FEED TUBE 5 mg DAILY CHRISTINE Administration Gabapentin 300 mg 10/19/24 17:00 10/21/24 12:28 Gabapentin 300 Mg Capsule FEED TUBE 300 mg QID CHRISTINE Administration Hydroxychloroquine Sulfate 400 mg 10/19/24 15:50 10/21/24 08:59 Hydroxychloroquine Sulfate 200 Mg Tablet FEED TUBE 400 mg DAILY CHRISTINE Administration Levothyroxine Sodium 75 mcg 10/20/24 06:30 10/21/24 06:01 Levothyroxine Sodium 75 Mcg Tablet FEED TUBE 75 mcg DAILY@0630 CHRISTINE Administration Melatonin 15 mg 10/19/24 21:00 10/20/24 20:55 Melatonin 5 Mg Tablet FEED TUBE 15 mg HS CHRISTINE Administration Morphine Sulfate 2 mg 10/17/24 12:17 10/19/24 17:00 Morphine Sulfate (*Crx) 2 Mg/Ml Inj IV PUSH 2 mg Q2H PRN Administration Pain Rated 6 or Greater Nitroglycerin 0.4 mg 10/17/24 15:46 Nitroglycerin Sl 0.4 Mg Tablet SUBLINGUAL PRN PRN Chest Pain Ondansetron HCl 4 mg 10/17/24 12:17 Ondansetron Inj 4 Mg/2 Ml Vial IV PUSH Q4H PRN Nausea Pantoprazole Sodium 40 mg 10/17/24 21:00 10/19/24 11:45 Pantoprazole 40 Mg Tablet PO Not Given Q12HR CHRISTINE Pantoprazole Sodium 40 mg 10/19/24 21:00 10/21/24 09:02 Pantoprazole Sodium Iv 40 Mg Vial IV PUSH 40 mg Q12HR CHRISTINE Administration Polyethylene Glycol 17 gm 10/21/24 09:00 10/21/24 09:03 Polyethylene Glycol 3350 17 Gm Powd.Pack FEED TUBE 17 gm DAILY CHRISTINE Administration Ropinirole HCl 2 mg 10/19/24 21:00 10/20/24 20:55 Ropinirole Hcl 1 Mg Tablet FEED TUBE 2 mg HS CHRISTINE Administration Ropinirole HCl 1 mg 10/19/24 15:45 10/21/24 06:02 Ropinirole Hcl 1 Mg Tablet FEED TUBE 1 mg 0700,1530 CHRISTINE Administration Fluticasone/Salmeterol 2 puff 10/17/24 20:00 10/21/24 08:41 Fluticasone/Salmeterol 115-21 Mcg Inhaler 1 Puff INHALATION 2 puff Q12HRT CHRISTINE Administration Tamsulosin HCl 0.4 mg 10/17/24 21:00 10/18/24 20:38 Tamsulosin Hcl 0.4 Mg Capsule PO 0.4 mg HS CHRISTINE Administration Radiology Results: ITS Impressions Chest X-Ray 10/17/24 09:55 Impression: Clear lungs. Status post CABG. Modified Barium Swallow 10/19/24 11:08 IMPRESSION: Pharyngeal dysphagia with laryngeal penetration and trace aspiration with all trials. Please correlate with speech pathologist findings and specific feeding recommendations. Labs Labs: Laboratory Results - last 24 hr 10/20/24 10/21/24 10/21/24 17:55 00:31 05:20 WBC RBC Hgb Hct MCV MCH MCHC RDW Plt Count MPV Immature Gran % (Auto) Neut % (Auto) Lymph % (Auto) [place] % (Auto) Eos % (Auto) Baso % (Auto) Lymph # (Auto) [place] # (Auto) Eos # (Auto) Baso # (Auto) Abs Immat Gran (auto) Absolute Neuts (auto) Absolute Nucleated RBC Nucleated RBC % Sodium Potassium Chloride Carbon Dioxide Anion Gap BUN Creatinine Estim Creat Clear Calc Estimated GFR Glucose POC Capillary Glucose 144 H 169 H 130 H Calcium Magnesium Total Bilirubin AST ALT Alkaline Phosphatase Total Protein Albumin 10/21/24 10/21/24 05:27 11:51 WBC 8.0 RBC 4.00 L Hgb 13.0 L Hct 39.4 L MCV 98.5 MCH 32.5 MCHC 33.0 RDW 12.7 Plt Count 170 MPV 10.9 H Immature Gran % (Auto) 0.5 Neut % (Auto) 71.1 Lymph % (Auto) 10.6 L [place] % (Auto) 14.0 H Eos % (Auto) 3.4 Baso % (Auto) 0.4 Lymph # (Auto) 0.84 L [place] # (Auto) 1.1 H Eos # (Auto) 0.3 Baso # (Auto) 0.0 Abs Immat Gran (auto) 0.04 H Absolute Neuts (auto) 5.7 Absolute Nucleated RBC 0.000 Nucleated RBC % 0.0 Sodium 135 L Potassium 3.9 Chloride 96 L Carbon Dioxide 32 H Anion Gap 7 BUN 31 H Creatinine 1.20 Estim Creat Clear Calc 36 Estimated GFR 57 L Glucose 119 H POC Capillary Glucose 156 H Calcium 9.1 Magnesium 2.4 H Total Bilirubin 0.5 AST 36 ALT 13 Alkaline Phosphatase 139 H Total Protein 7.0 Albumin 4.0
[2024-10-21] MEDS: ACETAMINOPHEN ELIXIR 325 MG/10.15 ML UDC 650 MG FEED TUBE (16:40)
[2024-10-21 18:00] LABS: Glucose Point of Care 150 mg/dl (65-105)
[2024-10-21] MEDS: ACETAMINOPHEN ELIXIR 325 MG/10.15 ML UDC 1000 MG FEED TUBE (20:46)
[2024-10-21] MEDS: MELATONIN 5 MG TABLET 15 MG FEED TUBE (20:47)
[2024-10-21] MEDS: rOPINIRole HCL 1 MG TABLET 2 MG FEED TUBE (20:48)
[2024-10-22] VITALS (11 sets, daily range): BP systolic 116–148; BP diastolic 52–91; PULSE 58–68; RESP 18–20; TEMP 36.7–36.8; O2SAT 94–98
[2024-10-22] MEDS: LEVOTHYROXINE SODIUM 75 MCG TABLET FEED TUBE (05:58)
[2024-10-22] MEDS: rOPINIRole HCL 1 MG TABLET FEED TUBE ×5 (06:03→20:26)
[2024-10-22 06:29] LABS: Glucose Point of Care 132 mg/dl (65-105)
[2024-10-22 06:48] LABS: Basophils Percent Auto 0.3 % (0.2-1.2); Eosinophils Absolute Auto 0.4 K/mm3 (0-0.3); Eosinophils Percent Auto 4.1 % (0-4.4); Hematocrit 39.3 % (42.0-52.0); Hemoglobin 12.9 g/dL (14.0-18.0); Immature Granulocyte Absolute 0.04 K/mm3 (0.00-0.031); Immature Granulocyte Percent A 0.5 % (0-0.5); Lymphocytes Absolute Auto 0.87 K/mm3 (0.9-3.2); Mean Corpuscular HGB Conc 32.8 g/dl (32-36); Mean Corpuscular Hemoglobin 32.3 pg (26-34); Mean Corpuscular Volume 98.5 fl (80-100); Mean Platelet Volume 10.7 fl (7.4-10.4); Monocytes Absolute Auto 1.2 K/mm3 (0.1-0.6); Monocytes Percent Auto 13.9 % (2.6-8.5); Neutrophils Absolute Auto 6.2 K/mm3 (1.3-6.7); Neutrophils Percent Auto 71.2 % (45.5-73.1); Platelet Count Result 165 k/mm3 (150-375); Red Blood Count 3.99 M/mm3 (4.6-6.20); Red Cell Distribution Width 12.7 % (11.5-14.5); White Blood Count 8.7 K/mm3 (4.5-10.0)
[2024-10-22 07:03] LABS: Alanine Aminotransferase 16 U/L (6-50); Albumin Level 4.1 g/dL (3.5-5.1); Alkaline Phosphatase 158 U/L (38-126); Anion Gap 8 mmol/L (4-12); Aspartate Amino Transferase 30 U/L (17-59); Bilirubin,Total 0.5 mg/dL (0.2-1.3); Blood Urea Nitrogen 32 mg/dL (9-20); Calcium 8.9 mg/dL (8.4-10.2); Carbon Dioxide 32 mmol/L (22-30); Chloride 94 mmol/L (98-107); Estimated CRCL calculation 41 ml/min; Estimated Glomerular Filt Rate > 60; Glucose 102 mg/dL (65-110); Magnesium 2.5 mg/dL (1.6-2.3); Potassium 4.6 mmol/L (3.4-5.0); Sodium 134 mmol/L (137-145); Total Protein 7.3 g/dL (6.3-8.2)
[2024-10-22 07:12] LABS: Glucose Point of Care 122 mg/dl (65-105)
[2024-10-22] MEDS: FLUTICASONE/SALMETEROL 115-21 MCG INHALER 1 PUFF 2 PUFF INHALATION ×2 (08:03→20:46)
[2024-10-22] MEDS: polyethylene glycoL 3350 17 GM POWD.PACK FEED TUBE (09:37)
[2024-10-22] MEDS: ASPIRIN 81 MG CHEWABLE TABLET FEED TUBE (09:37)
[2024-10-22] MEDS: GABAPENTIN 300 MG CAPSULE FEED TUBE ×4 (09:37→20:26)
[2024-10-22] MEDS: CYANOCOBALAMIN 1,000 MCG TABLET 1000 MCG FEED TUBE (09:37)
[2024-10-22] MEDS: CARBIDOPA/LEVODOPA 25/100 MG TABLET 2 TABLET FEED TUBE ×3 (09:37→18:16)
[2024-10-22] MEDS: CLOPIDOGREL BISULFATE 75 MG TABLET FEED TUBE (09:38)
[2024-10-22] MEDS: BUMETANIDE 1 MG TABLET 2 MG FEED TUBE (09:38)
[2024-10-22] MEDS: FAMOTIDINE 20 MG TABLET FEED TUBE ×2 (09:38→20:26)
[2024-10-22] MEDS: carBAMazepine 200 MG TABLET FEED TUBE ×2 (09:38→20:26)
[2024-10-22] MEDS: HYDROXYCHLOROQUINE SULFATE 200 MG TABLET 400 MG FEED TUBE (09:38)
[2024-10-22] MEDS: FINASTERIDE 5 MG TABLET FEED TUBE (09:38)
[2024-10-22] MEDS: ENOXAPARIN 40 MG/0.4 ML SYRINGE SUB-Q (09:39)
[2024-10-22] MEDS: PANTOPRAZOLE SODIUM IV 40 MG VIAL IV PUSH ×2 (09:39→20:27)
[2024-10-22] MEDS: ARTIFICIAL TEARS OPHTH SOLN 15 ML BOTTLE 1 DROP EACH EYE (11:45)
[2024-10-22 12:13] LABS: Glucose Point of Care 172 mg/dl (65-105)
--- NOTE | 2024-10-22 14:15 | P.PNIM_ITS ---
Progress Note: A&P Assessment and Plan (1) NSTEMI (non-ST elevated myocardial infarction): Code(s): I21.4 - Non-ST elevation (NSTEMI) myocardial infarction Status: Acute (2) Mobitz type 1 second degree atrioventricular block: Code(s): I44.1 - Atrioventricular block, second degree Status: Acute (3) Parkinson's disease: Code(s): G20 - Parkinson's disease Status: Chronic (4) Obstructive sleep apnea: Code(s): G47.33 - Obstructive sleep apnea (adult) (pediatric) Status: Chronic (5) Hypertension: Code(s): I10 - Essential (primary) hypertension Status: Chronic (6) Hypothyroidism: Code(s): E03.9 - Hypothyroidism, unspecified Status: Chronic (7) Gastroesophageal reflux disease: Code(s): K21.9 - Gastro-esophageal reflux disease without esophagitis Status: Chronic (8) Dysphagia: Code(s): R13.10 - Dysphagia, unspecified Status: Chronic (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 Patient reports sitting down to drink coffee and watch the news when he developed sudden onset of left-sided chest pain that radiated to the left arm that he described as a burning sensation 10/10 on arrival. Patient took 325 mg of aspirin at home before coming to the ER. He received IV morphine in the ER which did not help and then nitropaste was applied to the right chest 1 inch which subsequently stopped the pain. Initial troponin was normal in the ER. Chest x-ray was also normal in ER. Subsequent troponin level significantly elevated to 15.[address] elevation [place]. Patient underwent cardiac catheterization which showed most of the vessels patent RCA was heavily calcified and PAGAN was difficult to visualize. Echo with normal LV function EF 65-70% and grade 1 diastolic dysfunction. Medical management with dual antiplatelet therapy short-term planned along with long- acting nitroglycerin. No further chest pain History of recurrent aspiration pneumonias Dysphagia failed MBS. NG in place and tube feed ongoing. Repeat MBS planned on Thursday Throat discomfort/hoarseness of voice could be due to NG place. Will add Flonase for postnasal drip may try Chloraseptic Restless leg syndrome on Requip Frequent falls Parkinson's disease Peripheral neuropathy CAD and 4 vessel CABG in 2016. CKD stage III Rheumatoid arthritis Hypothyroidism Congestive heart failure diastolic MADDIE on BiPAP DVT prophylaxis start Lovenox Code status full code Subjective Date/time seen: 10/22/24 14:15 Interval history: No overnight events. Still has throat secretions throat discomfort Review of Systems Review of Systems: All systems reviewed & are unremarkable except as noted in HPI and below Exam Narrative: Patient is comfortable, NAD HEENT: eyes are clear and none icteric NG in place LUNGS:CTA HEART: RR S1S2 ABD: BS+, Soft and nontender Lower extremities: no edema SKIN: nonjaundiced Neuro: grossly intact. Objective Data Vital Signs Vital Signs: Vital Signs - 24 hr 10/21/24 16:04 10/21/24 20:08 10/21/24 20:39 Temperature 98.4 F Pulse Rate 67 65 Respiratory Rate 18 Blood Pressure 118/70 Pulse Oximetry 96 98 Oxygen Delivery Room Air Fraction of Inspired Oxygen 10/21/24 20:45 10/21/24 20:45 10/22/24 00:00 Temperature Pulse Rate 60 59 L Respiratory Rate Blood Pressure Pulse Oximetry Oxygen Delivery Room Air Fraction of Inspired Oxygen 10/22/24 04:00 10/22/24 04:11 10/22/24 08:03 Temperature 98.2 F Pulse Rate 61 58 L Respiratory Rate 18 Blood Pressure 116/52 L Pulse Oximetry 98 94 Oxygen Delivery Room Air Fraction of Inspired Oxygen 21 10/22/24 08:03 10/22/24 08:04 10/22/24 09:30 Temperature Pulse Rate 63 68 Respiratory Rate 20 Blood Pressure Pulse Oximetry Oxygen Delivery Room Air Fraction of Inspired Oxygen Intake/Output Intake/Output: Intake & Output 10/19/24 10/20/24 10/21/24 10/22/24 23:59 23:59 23:59 23:59 Intake Total 268 797 7516 1200 Output Total 1751 2200 850 400 Balance -1501 -1450 1638 800 Meds/Results Medications: Active Medications Generic Name Dose Route Start Last Admin Trade Name Freq PRN Reason Stop Dose Admin Acetaminophen 650 mg 10/20/24 11:50 10/21/24 16:40 Acetaminophen Elixir 325 Mg/10.15 Ml Udc FEED TUBE 650 mg Q4H PRN Administration Pain Rated 5 or Less or Fever Acetaminophen 1,000 mg 10/20/24 21:00 10/21/24 20:46 Acetaminophen Elixir 325 Mg/10.15 Ml Udc FEED TUBE 1,000 mg HS CHRISTINE Administration Albuterol 2 puff 10/17/24 16:20 Albuterol Sulfate (*Sp) Aerosol 1 Puff INHALATION QID PRN Shortness Of Breath/Wheezing Artificial Tears 1 drop 10/22/24 11:16 10/22/24 11:45 Artificial Tears Ophth Soln 15 Ml Bottle EACH EYE 1 drop QID PRN Administration Dry Eye(s) Aspirin 81 mg 10/19/24 15:45 10/22/24 09:37 Aspirin 81 Mg Chewable Tablet FEED TUBE 81 mg DAILY@0800 CHRISTINE Administration Bumetanide 2 mg 10/19/24 15:45 10/22/24 09:38 Bumetanide 1 Mg Tablet FEED TUBE 2 mg DAILY CHRISTINE Administration Carbamazepine 200 mg 10/19/24 15:45 10/22/24 09:38 Carbamazepine 200 Mg Tablet FEED TUBE 200 mg Q12HR CHRISTINE Administration Carbidopa/Levodopa 2 tablet 10/19/24 18:00 10/22/24 14:04 Carbidopa/Levodopa 25/100 Mg Tablet FEED TUBE 2 tablet ,18 CHRISTINE Administration Clopidogrel Bisulfate 75 mg 10/19/24 15:45 10/22/24 09:38 Clopidogrel Bisulfate 75 Mg Tablet FEED TUBE 75 mg QAM CHRISTINE Administration Cyanocobalamin 1,000 mcg 10/21/24 09:00 10/22/24 09:37 Cyanocobalamin 1,000 Mcg Tablet FEED TUBE 1,000 mcg QAM CHRISTINE Administration Enoxaparin Sodium 40 mg 10/22/24 09:00 10/22/24 09:39 Enoxaparin 40 Mg/0.4 Ml Syringe SUB-Q 40 mg DAILY CHRISTINE Administration Famotidine 20 mg 10/19/24 21:00 10/22/24 09:38 Famotidine 20 Mg Tablet FEED TUBE 20 mg Q12HR CHRISTINE Administration Finasteride 5 mg 10/20/24 09:00 10/22/24 09:38 Finasteride 5 Mg Tablet FEED TUBE 5 mg DAILY CHRISTINE Administration Gabapentin 300 mg 10/19/24 17:00 10/22/24 14:04 Gabapentin 300 Mg Capsule FEED TUBE 300 mg QID CHRISTINE Administration Hydroxychloroquine Sulfate 400 mg 10/19/24 15:50 10/22/24 09:38 Hydroxychloroquine Sulfate 200 Mg Tablet FEED TUBE 400 mg DAILY CHRISTINE Administration Levothyroxine Sodium 75 mcg 10/20/24 06:30 10/22/24 05:58 Levothyroxine Sodium 75 Mcg Tablet FEED TUBE 75 mcg DAILY@0630 CHRISTINE Administration Melatonin 15 mg 10/19/24 21:00 10/21/24 20:47 Melatonin 5 Mg Tablet FEED TUBE 15 mg HS CHRISTINE Administration Morphine Sulfate 2 mg 10/17/24 12:17 10/19/24 17:00 Morphine Sulfate (*Crx) 2 Mg/Ml Inj IV PUSH 2 mg Q2H PRN Administration Pain Rated 6 or Greater Nitroglycerin 0.4 mg 10/17/24 15:46 Nitroglycerin Sl 0.4 Mg Tablet SUBLINGUAL PRN PRN Chest Pain Ondansetron HCl 4 mg 10/17/24 12:17 Ondansetron Inj 4 Mg/2 Ml Vial IV PUSH Q4H PRN Nausea Pantoprazole Sodium 40 mg 10/17/24 21:00 10/19/24 11:45 Pantoprazole 40 Mg Tablet PO Not Given Q12HR [facility] Pantoprazole Sodium 40 mg 10/19/24 21:00 10/22/24 09:39 Pantoprazole Sodium Iv 40 Mg Vial IV PUSH 40 mg Q12HR CHRISTINE Administration Polyethylene Glycol 17 gm 10/21/24 09:00 10/22/24 09:37 Polyethylene Glycol 3350 17 Gm Powd.Pack FEED TUBE 17 gm DAILY CHRISTINE Administration Ropinirole HCl 1 mg 10/22/24 11:15 10/22/24 14:04 Ropinirole Hcl 1 Mg Tablet FEED TUBE 1 mg Q4HR CHRISTINE Administration Fluticasone/Salmeterol 2 puff 10/17/24 20:00 10/22/24 08:03 Fluticasone/Salmeterol 115-21 Mcg Inhaler 1 Puff INHALATION 2 puff Q12HRT CHRISTINE Administration Tamsulosin HCl 0.4 mg 10/17/24 21:00 10/18/24 20:38 Tamsulosin Hcl 0.4 Mg Capsule PO 0.4 mg HS CHRISTINE Administration Radiology Results: ITS Impressions Chest X-Ray 10/17/24 09:55 Impression: Clear lungs. Status post CABG. Modified Barium Swallow 10/19/24 11:08 IMPRESSION: Pharyngeal dysphagia with laryngeal penetration and trace aspiration with all trials. Please correlate with speech pathologist findings and specific feeding recommendations. Labs Labs: Laboratory Results - last 24 hr 10/21/24 10/22/24 10/22/24 17:48 01:03 06:16 WBC 8.7 RBC 3.99 L Hgb 12.9 L Hct 39.3 L MCV 98.5 MCH 32.3 MCHC 32.8 RDW 12.7 Plt Count 165 MPV 10.7 H Immature Gran % (Auto) 0.5 Neut % (Auto) 71.2 Lymph % (Auto) 10.0 L [place] % (Auto) 13.9 H Eos % (Auto) 4.1 Baso % (Auto) 0.3 Lymph # (Auto) 0.87 L [place] # (Auto) 1.2 H Eos # (Auto) 0.4 H Baso # (Auto) 0.0 Abs Immat Gran (auto) 0.04 H Absolute Neuts (auto) 6.2 Absolute Nucleated RBC 0.000 Nucleated RBC % 0.0 Sodium 134 L Potassium 4.6 Chloride 94 L Carbon Dioxide 32 H Anion Gap 8 BUN 32 H Creatinine 1.07 Estim Creat Clear Calc 41 Estimated GFR > 60 Glucose 102 POC Capillary Glucose 150 H 132 H Calcium 8.9 Magnesium 2.5 H Total Bilirubin 0.5 AST 30 ALT 16 Alkaline Phosphatase 158 H Total Protein 7.3 Albumin 4.1 10/22/24 10/22/24 07:10 12:04 WBC RBC Hgb Hct MCV MCH MCHC RDW Plt Count MPV Immature Gran % (Auto) Neut % (Auto) Lymph % (Auto) [place] % (Auto) Eos % (Auto) Baso % (Auto) Lymph # (Auto) [place] # (Auto) Eos # (Auto) Baso # (Auto) Abs Immat Gran (auto) Absolute Neuts (auto) Absolute Nucleated RBC Nucleated RBC % Sodium Potassium Chloride Carbon Dioxide Anion Gap BUN Creatinine Estim Creat Clear Calc Estimated GFR Glucose POC Capillary Glucose 122 H 172 H Calcium Magnesium Total Bilirubin AST ALT Alkaline Phosphatase Total Protein Albumin
[2024-10-22] MEDS: FLUTICASONE PROPIONATE 0.05% NA SPR 16 GM BTL (*BKC) 1 SPRAY NASAL (17:43)
[2024-10-22 18:01] LABS: Glucose Point of Care 155 mg/dl (65-105)
[2024-10-22] MEDS: ACETAMINOPHEN ELIXIR 325 MG/10.15 ML UDC 1000 MG FEED TUBE (20:23)
[2024-10-22] MEDS: MELATONIN 5 MG TABLET 15 MG FEED TUBE (20:26)
[2024-10-23] VITALS (12 sets, daily range): BP systolic 127–155; BP diastolic 55–61; PULSE 59–81; RESP 18; TEMP 36.5–37.2; O2SAT 96–100
[2024-10-23 00:22] LABS: Glucose Point of Care 137 mg/dl (65-105)
[2024-10-23] MEDS: rOPINIRole HCL 1 MG TABLET FEED TUBE ×6 (01:02→21:10)
[2024-10-23] MEDS: LEVOTHYROXINE SODIUM 75 MCG TABLET FEED TUBE ×2 (05:48→09:07)
[2024-10-23 06:14] LABS: Basophils Percent Auto 0.5 % (0.2-1.2); Eosinophils Absolute Auto 0.4 K/mm3 (0-0.3); Eosinophils Percent Auto 5.2 % (0-4.4); Hematocrit 38.1 % (42.0-52.0); Hemoglobin 12.6 g/dL (14.0-18.0); Immature Granulocyte Absolute 0.03 K/mm3 (0.00-0.031); Immature Granulocyte Percent A 0.4 % (0-0.5); Lymphocytes Absolute Auto 0.73 K/mm3 (0.9-3.2); Lymphocytes Percent Auto 9.4 % (18.3-44.2); Mean Corpuscular HGB Conc 33.1 g/dl (32-36); Mean Corpuscular Hemoglobin 32.5 pg (26-34); Mean Corpuscular Volume 98.2 fl (80-100); Monocytes Absolute Auto 0.9 K/mm3 (0.1-0.6); Monocytes Percent Auto 11.3 % (2.6-8.5); Neutrophils Absolute Auto 5.7 K/mm3 (1.3-6.7); Neutrophils Percent Auto 73.2 % (45.5-73.1); Platelet Count Result 172 k/mm3 (150-375); Red Blood Count 3.88 M/mm3 (4.6-6.20); Red Cell Distribution Width 12.7 % (11.5-14.5); White Blood Count 7.8 K/mm3 (4.5-10.0)
[2024-10-23 06:28] LABS: Alanine Aminotransferase 15 U/L (6-50); Alkaline Phosphatase 144 U/L (38-126); Anion Gap 8 mmol/L (4-12); Aspartate Amino Transferase 30 U/L (17-59); Bilirubin,Total 0.4 mg/dL (0.2-1.3); Blood Urea Nitrogen 30 mg/dL (9-20); Calcium 8.8 mg/dL (8.4-10.2); Carbon Dioxide 31 mmol/L (22-30); Chloride 94 mmol/L (98-107); Estimated CRCL calculation 46 ml/min; Estimated Glomerular Filt Rate > 60; Glucose 132 mg/dL (65-110); Magnesium 2.5 mg/dL (1.6-2.3); Potassium 3.9 mmol/L (3.4-5.0); Sodium 133 mmol/L (137-145); Total Protein 7.1 g/dL (6.3-8.2)
[2024-10-23 06:32] LABS: Glucose Point of Care 140 mg/dl (65-105)
[2024-10-23] MEDS: FLUTICASONE/SALMETEROL 115-21 MCG INHALER 1 PUFF 2 PUFF INHALATION ×2 (08:31→19:55)
[2024-10-23] MEDS: PANTOPRAZOLE SODIUM IV 40 MG VIAL IV PUSH ×2 (09:06→21:17)
[2024-10-23] MEDS: polyethylene glycoL 3350 17 GM POWD.PACK FEED TUBE (09:06)
[2024-10-23] MEDS: carBAMazepine 200 MG TABLET FEED TUBE ×2 (09:07→21:11)
[2024-10-23] MEDS: GABAPENTIN 300 MG CAPSULE FEED TUBE ×4 (09:07→21:15)
[2024-10-23] MEDS: CLOPIDOGREL BISULFATE 75 MG TABLET FEED TUBE (09:07)
[2024-10-23] MEDS: FINASTERIDE 5 MG TABLET FEED TUBE (09:07)
[2024-10-23] MEDS: FAMOTIDINE 20 MG TABLET FEED TUBE ×2 (09:07→21:11)
[2024-10-23] MEDS: CYANOCOBALAMIN 1,000 MCG TABLET 1000 MCG FEED TUBE (09:07)
[2024-10-23] MEDS: HYDROXYCHLOROQUINE SULFATE 200 MG TABLET 400 MG FEED TUBE (09:07)
[2024-10-23] MEDS: ASPIRIN 81 MG CHEWABLE TABLET FEED TUBE (09:07)
[2024-10-23] MEDS: CARBIDOPA/LEVODOPA 25/100 MG TABLET 2 TABLET FEED TUBE ×3 (09:07→17:29)
[2024-10-23] MEDS: ACETAMINOPHEN ELIXIR 325 MG/10.15 ML UDC 650 MG FEED TUBE (09:08)
[2024-10-23] MEDS: ENOXAPARIN 40 MG/0.4 ML SYRINGE SUB-Q (09:08)
[2024-10-23] MEDS: BUMETANIDE 1 MG TABLET 2 MG FEED TUBE (09:08)
[2024-10-23] MEDS: FLUTICASONE PROPIONATE 0.05% NA SPR 16 GM BTL (*BKC) 1 SPRAY NASAL ×2 (09:22→21:02)
[2024-10-23 12:00] LABS: Glucose Point of Care 145 mg/dl (65-105)
--- NOTE | 2024-10-23 13:14 | PM.IMPN ---
Progress Note: A&P Assessment and Plan (1) NSTEMI (non-ST elevated myocardial infarction): Code(s): I21.4 - Non-ST elevation (NSTEMI) myocardial infarction Status: Acute (2) Mobitz type 1 second degree atrioventricular block: Code(s): I44.1 - Atrioventricular block, second degree Status: Acute (3) Parkinson's disease: Code(s): G20 - Parkinson's disease Status: Chronic (4) Obstructive sleep apnea: Code(s): G47.33 - Obstructive sleep apnea (adult) (pediatric) Status: Chronic (5) Hypertension: Code(s): I10 - Essential (primary) hypertension Status: Chronic (6) Hypothyroidism: Code(s): E03.9 - Hypothyroidism, unspecified Status: Chronic (7) Gastroesophageal reflux disease: Code(s): K21.9 - Gastro-esophageal reflux disease without esophagitis Status: Chronic (8) Dysphagia: Code(s): R13.10 - Dysphagia, unspecified Status: Chronic (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 Patient reports sitting down to drink coffee and watch the news when he developed sudden onset of left-sided chest pain that radiated to the left arm that he described as a burning sensation 10/10 on arrival. Patient took 325 mg of aspirin at home before coming to the ER. He received IV morphine in the ER which did not help and then nitropaste was applied to the right chest 1 inch which subsequently stopped the pain. Initial troponin was normal in the ER. Chest x-ray was also normal in ER. Subsequent troponin level significantly elevated to 15.[address] elevation [place]. Patient underwent cardiac catheterization which showed most of the vessels patent RCA was heavily calcified and PAGAN was difficult to visualize. Echo with normal LV function EF 65-70% and grade 1 diastolic dysfunction. Medical management with dual antiplatelet therapy short-term planned along with long-acting nitroglycerin. No further chest pain History of recurrent aspiration pneumonias Dysphagia failed MBS. NG in place and tube feed ongoing. Repeat MBS planned on Thursday Throat discomfort/hoarseness of voice could be due to NG place. Added Flonase for postnasal drip may try Chloraseptic. Restless leg syndrome on Requip Frequent falls Parkinson's disease Peripheral neuropathy CAD and 4 vessel CABG in 2016. CKD stage III Rheumatoid arthritis Hypothyroidism Congestive heart failure diastolic MADDIE on BiPAP DVT prophylaxis start Lovenox Code status full code Subjective Date/time seen: 10/23/24 13:14 Interval history: No overnight events. Drainage is less. During swallowing exercises. Family at bedside. No new complaints. Review of Systems Review of Systems: All systems reviewed & are unremarkable except as noted in HPI and below Exam Narrative: Patient is comfortable, NAD HEENT: eyes are clear and none icteric NG in place LUNGS:CTA HEART: RR S1S2 ABD: BS+, Soft and nontender Lower extremities: no edema SKIN: nonjaundiced Neuro: grossly intact. Objective Data Vital Signs Vital Signs: Vital Signs - 24 hr 10/22/24 14:00 10/22/24 16:04 10/22/24 20:25 Temperature Pulse Rate 64 63 Respiratory Rate 18 Blood Pressure 126/52 L Pulse Oximetry 96 Oxygen Delivery Room Air 10/22/24 20:25 10/22/24 21:19 10/22/24 22:00 Temperature 98.1 F Pulse Rate 61 60 Respiratory Rate 18 Blood Pressure 148/91 H Pulse Oximetry 95 98 Oxygen Delivery Room Air 10/23/24 00:00 10/23/24 04:00 10/23/24 06:00 Temperature 97.7 F Pulse Rate 59 L 63 61 Respiratory Rate 18 Blood Pressure 155/55 H Pulse Oximetry 100 Oxygen Delivery 10/23/24 08:00 10/23/24 08:00 10/23/24 08:32 Temperature Pulse Rate 81 Respiratory Rate Blood Pressure Pulse Oximetry 100 96 Oxygen Delivery Room Air Room Air 10/23/24 12:00 Temperature Pulse Rate 61 Respiratory Rate Blood Pressure Pulse Oximetry Oxygen Delivery Intake/Output Intake/Output: Intake & Output 10/20/24 10/21/24 10/22/24 10/23/24 23:59 23:59 23:59 23:59 Intake Total 750 2488 1700 1852 Output Total 2200 850 1900 1396 Balance -1450 1638 -200 456 Meds/Results Medications: Active Medications Generic Name Dose Route Start Last Admin Trade Name Freq PRN Reason Stop Dose Admin Acetaminophen 650 mg 10/20/24 11:50 10/23/24 09:08 Acetaminophen Elixir 325 Mg/10.15 Ml Udc FEED TUBE 650 mg Q4H PRN Administration Pain Rated 5 or Less or Fever Acetaminophen 1,000 mg 10/20/24 21:00 10/22/24 20:23 Acetaminophen Elixir 325 Mg/10.15 Ml Udc FEED TUBE 1,000 mg HS CHRISTINE Administration Albuterol 2 puff 10/17/24 16:20 Albuterol Sulfate (*Sp) Aerosol 1 Puff INHALATION QID PRN Shortness Of Breath/Wheezing Artificial Tears 1 drop 10/22/24 11:16 10/22/24 11:45 Artificial Tears Ophth Soln 15 Ml Bottle EACH EYE 1 drop QID PRN Administration Dry Eye(s) Aspirin 81 mg 10/19/24 15:45 10/23/24 09:07 Aspirin 81 Mg Chewable Tablet FEED TUBE 81 mg DAILY@0800 CHRISTINE Administration Bumetanide 2 mg 10/19/24 15:45 10/23/24 09:08 Bumetanide 1 Mg Tablet FEED TUBE 2 mg DAILY CHRISTINE Administration Carbamazepine 200 mg 10/19/24 15:45 10/23/24 09:07 Carbamazepine 200 Mg Tablet FEED TUBE 200 mg Q12HR CHRISTINE Administration Carbidopa/Levodopa 2 tablet 10/19/24 18:00 10/23/24 12:18 Carbidopa/Levodopa 25/100 Mg Tablet FEED TUBE 2 tablet 08,,18 CHRISTINE Administration Clopidogrel Bisulfate 75 mg 10/19/24 15:45 10/23/24 09:07 Clopidogrel Bisulfate 75 Mg Tablet FEED TUBE 75 mg QAM CHRISTINE Administration Cyanocobalamin 1,000 mcg 10/21/24 09:00 10/23/24 09:07 Cyanocobalamin 1,000 Mcg Tablet FEED TUBE 1,000 mcg QAM CHRISTINE Administration Enoxaparin Sodium 40 mg 10/22/24 09:00 10/23/24 09:08 Enoxaparin 40 Mg/0.4 Ml Syringe SUB-Q 40 mg DAILY CHRISTINE Administration Famotidine 20 mg 10/19/24 21:00 10/23/24 09:07 Famotidine 20 Mg Tablet FEED TUBE 20 mg Q12HR CHRISTINE Administration Finasteride 5 mg 10/20/24 09:00 10/23/24 09:07 Finasteride 5 Mg Tablet FEED TUBE 5 mg DAILY CHRISTINE Administration Fluticasone Propionate 1 spray 10/22/24 14:20 10/23/24 09:22 Fluticasone Propionate 0.05% Na Spr 16 Gm Btl (*Bkc) NASAL 1 spray Q12HR CHRISTINE Administration Gabapentin 300 mg 10/19/24 17:00 10/23/24 12:18 Gabapentin 300 Mg Capsule FEED TUBE 300 mg QID CHRISTINE Administration Hydroxychloroquine Sulfate 400 mg 10/19/24 15:50 10/23/24 09:07 Hydroxychloroquine Sulfate 200 Mg Tablet FEED TUBE 400 mg DAILY CHRISTINE Administration Levothyroxine Sodium 75 mcg 10/20/24 06:30 10/23/24 09:07 Levothyroxine Sodium 75 Mcg Tablet FEED TUBE 75 mcg DAILY@0630 CHRISTINE Administration Melatonin 15 mg 10/19/24 21:00 10/22/24 20:26 Melatonin 5 Mg Tablet FEED TUBE 15 mg HS CHRISTINE Administration Morphine Sulfate 2 mg 10/17/24 12:17 10/19/24 17:00 Morphine Sulfate (*Crx) 2 Mg/Ml Inj IV PUSH 2 mg Q2H PRN Administration Pain Rated 6 or Greater Nitroglycerin 0.4 mg 10/17/24 15:46 Nitroglycerin Sl 0.4 Mg Tablet SUBLINGUAL PRN PRN Chest Pain Ondansetron HCl 4 mg 10/17/24 12:17 Ondansetron Inj 4 Mg/2 Ml Vial IV PUSH Q4H PRN Nausea Pantoprazole Sodium 40 mg 10/17/24 21:00 10/19/24 11:45 Pantoprazole 40 Mg Tablet PO Not Given Q12HR CHRISTINE Pantoprazole Sodium 40 mg 10/19/24 21:00 10/23/24 09:06 Pantoprazole Sodium Iv 40 Mg Vial IV PUSH 40 mg Q12HR CHRISTINE Administration Phenol 1 spray 10/22/24 14:18 Phenol/Sod Pheno [place] And[place] (*Bkc) MUCOUS MEM PRN PRN Sore Throat Polyethylene Glycol 17 gm 10/21/24 09:00 10/23/24 09:06 Polyethylene Glycol 3350 17 Gm Powd.Pack FEED TUBE 17 gm DAILY CHRISTINE Administration Ropinirole HCl 1 mg 10/22/24 11:15 10/23/24 12:18 Ropinirole Hcl 1 Mg Tablet FEED TUBE 1 mg Q4HR CHRISTINE Administration Fluticasone/Salmeterol 2 puff 10/17/24 20:00 10/23/24 08:31 Fluticasone/Salmeterol 115-21 Mcg Inhaler 1 Puff INHALATION 2 puff Q12HRT CHRISTINE Administration Tamsulosin HCl 0.4 mg 10/17/24 21:00 10/18/24 20:38 Tamsulosin Hcl 0.4 Mg Capsule PO 0.4 mg HS CHRISTINE Administration Radiology Results: ITS Impressions Chest X-Ray 10/17/24 09:55 Impression: Clear lungs. Status post CABG. Modified Barium Swallow 10/19/24 11:08 IMPRESSION: Pharyngeal dysphagia with laryngeal penetration and trace aspiration with all trials. Please correlate with speech pathologist findings and specific feeding recommendations. Labs Labs: Laboratory Results - last 24 hr 10/22/24 10/23/24 10/23/24 17:55 00:12 05:35 WBC 7.8 RBC 3.88 L Hgb 12.6 L Hct 38.1 L MCV 98.2 MCH 32.5 MCHC 33.1 RDW 12.7 Plt Count 172 MPV 11.0 H Immature Gran % (Auto) 0.4 Neut % (Auto) 73.2 H Lymph % (Auto) 9.4 L [place] % (Auto) 11.3 H Eos % (Auto) 5.2 H Baso % (Auto) 0.5 Lymph # (Auto) 0.73 L [place] # (Auto) 0.9 H Eos # (Auto) 0.4 H Baso # (Auto) 0.0 Abs Immat Gran (auto) 0.03 Absolute Neuts (auto) 5.7 Absolute Nucleated RBC 0.000 Nucleated RBC % 0.0 Sodium 133 L Potassium 3.9 Chloride 94 L Carbon Dioxide 31 H Anion Gap 8 BUN 30 H Creatinine 0.97 Estim Creat Clear Calc 46 Estimated GFR > 60 Glucose 132 H POC Capillary Glucose 155 H 137 H Calcium 8.8 Magnesium 2.5 H Total Bilirubin 0.4 AST 30 ALT 15 Alkaline Phosphatase 144 H Total Protein 7.1 Albumin 4.0 10/23/24 10/23/24 06:29 11:50 WBC RBC Hgb Hct MCV MCH MCHC RDW Plt Count MPV Immature Gran % (Auto) Neut % (Auto) Lymph % (Auto) [place] % (Auto) Eos % (Auto) Baso % (Auto) Lymph # (Auto) [place] # (Auto) Eos # (Auto) Baso # (Auto) Abs Immat Gran (auto) Absolute Neuts (auto) Absolute Nucleated RBC Nucleated RBC % Sodium Potassium Chloride Carbon Dioxide Anion Gap BUN Creatinine Estim Creat Clear Calc Estimated GFR Glucose POC Capillary Glucose 140 H 145 H Calcium Magnesium Total Bilirubin AST ALT Alkaline Phosphatase Total Protein Albumin
[2024-10-23 18:11] LABS: Glucose Point of Care 116 mg/dl (65-105)
[2024-10-23] MEDS: ACETAMINOPHEN ELIXIR 325 MG/10.15 ML UDC 1000 MG FEED TUBE (21:05)
[2024-10-23] MEDS: MELATONIN 5 MG TABLET 15 MG FEED TUBE (21:10)
[2024-10-24] VITALS (10 sets, daily range): BP systolic 137–142; BP diastolic 50–64; PULSE 50–71; RESP 18–20; TEMP 36.1–36.5; O2SAT 98–100
[2024-10-24] MEDS: rOPINIRole HCL 1 MG TABLET FEED TUBE ×6 (00:46→21:16)
[2024-10-24 00:50] LABS: Glucose Point of Care 149 mg/dl (65-105)
[2024-10-24] MEDS: MORPHINE SULFATE (*CRX) 2 MG/ML INJ IV PUSH (00:50)
[2024-10-24 05:37] LABS: Basophils Percent Auto 0.5 % (0.2-1.2); Eosinophils Absolute Auto 0.4 K/mm3 (0-0.3); Eosinophils Percent Auto 4.9 % (0-4.4); Hematocrit 37.4 % (42.0-52.0); Hemoglobin 12.2 g/dL (14.0-18.0); Immature Granulocyte Absolute 0.04 K/mm3 (0.00-0.031); Immature Granulocyte Percent A 0.5 % (0-0.5); Lymphocytes Absolute Auto 0.76 K/mm3 (0.9-3.2); Lymphocytes Percent Auto 9.3 % (18.3-44.2); Mean Corpuscular HGB Conc 32.6 g/dl (32-36); Mean Corpuscular Hemoglobin 32.6 pg (26-34); Mean Platelet Volume 11.2 fl (7.4-10.4); Monocytes Percent Auto 12.5 % (2.6-8.5); Neutrophils Absolute Auto 5.9 K/mm3 (1.3-6.7); Neutrophils Percent Auto 72.3 % (45.5-73.1); Platelet Count Result 164 k/mm3 (150-375); Red Blood Count 3.74 M/mm3 (4.6-6.20); Red Cell Distribution Width 12.6 % (11.5-14.5); White Blood Count 8.2 K/mm3 (4.5-10.0)
[2024-10-24 05:48] LABS: Alanine Aminotransferase 20 U/L (6-50); Albumin Level 3.6 g/dL (3.5-5.1); Alkaline Phosphatase 161 U/L (38-126); Anion Gap 8 mmol/L (4-12); Aspartate Amino Transferase 53 U/L (17-59); Bilirubin,Total 0.6 mg/dL (0.2-1.3); Blood Urea Nitrogen 30 mg/dL (9-20); Calcium 8.7 mg/dL (8.4-10.2); Carbon Dioxide 26 mmol/L (22-30); Chloride 98 mmol/L (98-107); Estimated CRCL calculation 51 ml/min; Estimated Glomerular Filt Rate > 60; Glucose 92 mg/dL (65-110); Magnesium 2.4 mg/dL (1.6-2.3); Potassium 4.7 mmol/L (3.4-5.0); Sodium 132 mmol/L (137-145); Total Protein 6.4 g/dL (6.3-8.2)
[2024-10-24 06:30] LABS: Glucose Point of Care 137 mg/dl (65-105)
[2024-10-24] MEDS: FLUTICASONE/SALMETEROL 115-21 MCG INHALER 1 PUFF 2 PUFF INHALATION ×2 (08:11→19:41)
[2024-10-24 08:43] LABS: Glucose Point of Care 139 mg/dl (65-105)
[2024-10-24] MEDS: PANTOPRAZOLE SODIUM IV 40 MG VIAL IV PUSH ×2 (09:38→21:16)
[2024-10-24] MEDS: carBAMazepine 200 MG TABLET FEED TUBE ×2 (09:38→21:16)
[2024-10-24] MEDS: FAMOTIDINE 20 MG TABLET FEED TUBE ×2 (09:38→21:16)
[2024-10-24] MEDS: BUMETANIDE 1 MG TABLET 2 MG FEED TUBE (09:38)
[2024-10-24] MEDS: FINASTERIDE 5 MG TABLET FEED TUBE (09:38)
[2024-10-24] MEDS: ASPIRIN 81 MG CHEWABLE TABLET FEED TUBE (09:38)
[2024-10-24] MEDS: GABAPENTIN 300 MG CAPSULE FEED TUBE ×4 (09:38→21:16)
[2024-10-24] MEDS: HYDROXYCHLOROQUINE SULFATE 200 MG TABLET 400 MG FEED TUBE (09:38)
[2024-10-24] MEDS: CLOPIDOGREL BISULFATE 75 MG TABLET FEED TUBE (09:38)
[2024-10-24] MEDS: CYANOCOBALAMIN 1,000 MCG TABLET 1000 MCG FEED TUBE (09:38)
[2024-10-24] MEDS: ENOXAPARIN 40 MG/0.4 ML SYRINGE SUB-Q (09:39)
[2024-10-24] MEDS: FLUTICASONE PROPIONATE 0.05% NA SPR 16 GM BTL (*BKC) 1 SPRAY NASAL ×2 (09:39→21:18)
[2024-10-24] MEDS: polyethylene glycoL 3350 17 GM POWD.PACK FEED TUBE (09:39)
[2024-10-24] MEDS: CARBIDOPA/LEVODOPA 25/100 MG TABLET 2 TABLET FEED TUBE ×3 (09:40→18:29)
--- NOTE | 2024-10-24 11:24 | PCSTNOTE ---
Please refer to the Modified Barium Swallow Evaluation in the EMR.
[2024-10-24 11:55] LABS: Glucose Point of Care 157 mg/dl (65-105)
[2024-10-24] MEDS: ACETAMINOPHEN ELIXIR 325 MG/10.15 ML UDC 650 MG FEED TUBE ×2 (13:32→17:13)
--- NOTE | 2024-10-24 15:05 | P.PNIM_ITS ---
Progress Note: A&P Assessment and Plan (1) NSTEMI (non-ST elevated myocardial infarction): Code(s): I21.4 - Non-ST elevation (NSTEMI) myocardial infarction Status: Acute (2) Mobitz type 1 second degree atrioventricular block: Code(s): I44.1 - Atrioventricular block, second degree Status: Acute (3) Parkinson's disease: Code(s): G20 - Parkinson's disease Status: Chronic (4) Obstructive sleep apnea: Code(s): G47.33 - Obstructive sleep apnea (adult) (pediatric) Status: Chronic (5) Hypertension: Code(s): I10 - Essential (primary) hypertension Status: Chronic (6) Hypothyroidism: Code(s): E03.9 - Hypothyroidism, unspecified Status: Chronic (7) Gastroesophageal reflux disease: Code(s): K21.9 - Gastro-esophageal reflux disease without esophagitis Status: Chronic (8) Dysphagia: Code(s): R13.10 - Dysphagia, unspecified Status: Chronic (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 Patient reports sitting down to drink coffee and watch the news when he developed sudden onset of left-sided chest pain that radiated to the left arm that he described as a burning sensation 10/10 on arrival. Patient took 325 mg of aspirin at home before coming to the ER. He received IV morphine in the ER which did not help and then nitropaste was applied to the right chest 1 inch which subsequently stopped the pain. Initial troponin was normal in the ER. Chest x-ray was also normal in ER. Subsequent troponin level significantly elevated to 15.[address] elevation [place]. Patient underwent cardiac catheterization which showed most of the vessels patent RCA was heavily calcified and PAGAN was difficult to visualize. Echo with normal LV function EF 65-70% and grade 1 diastolic dysfunction. Medical management with dual antiplatelet therapy short-term planned along with long- acting nitroglycerin. No further chest pain History of recurrent aspiration pneumonias Dysphagia failed MBS. NG in place and tube feed ongoing. Repeat MBS planned today Throat discomfort/hoarseness of voice could be due to NG place. Added Flonase for postnasal drip may try Chloraseptic. Restless leg syndrome on Requip Frequent falls Parkinson's disease Peripheral neuropathy CAD and 4 vessel CABG in 2016. CKD stage III Rheumatoid arthritis Hypothyroidism Congestive heart failure diastolic MADDIE on BiPAP DVT prophylaxis start Lovenox Code status full code Subjective Date/time seen: 10/24/24 15:05 Interval history: No overnight events. Having anxiety overnight. Reports some drainage from the nose. Going for MBS today Review of Systems Review of Systems: All systems reviewed & are unremarkable except as noted in HPI and below Exam Narrative: Patient is comfortable, NAD HEENT: eyes are clear and none icteric NG in place LUNGS:CTA HEART: RR S1S2 ABD: BS+, Soft and nontender Lower extremities: no edema SKIN: nonjaundiced Neuro: grossly intact. Objective Data Vital Signs Vital Signs: Vital Signs - 24 hr 10/23/24 16:00 10/23/24 19:58 10/23/24 20:04 Temperature Pulse Rate 60 61 Respiratory Rate Blood Pressure Pulse Oximetry 96 Oxygen Delivery Room Air 10/23/24 21:00 10/23/24 21:00 10/23/24 22:00 Temperature 98.9 F Pulse Rate 62 65 Respiratory Rate 18 Blood Pressure 131/60 Pulse Oximetry 100 Oxygen Delivery Room Air 10/24/24 00:00 10/24/24 04:00 10/24/24 06:00 Temperature 97.3 F L Pulse Rate 63 63 50 L Respiratory Rate 18 Blood Pressure 137/50 L Pulse Oximetry 100 Oxygen Delivery 10/24/24 08:00 10/24/24 08:00 Temperature Pulse Rate 50 L Respiratory Rate Blood Pressure Pulse Oximetry Oxygen Delivery Room Air Intake/Output Intake/Output: Intake & Output 10/21/24 10/22/24 10/23/24 10/24/24 23:59 23:59 23:59 23:59 Intake Total 2488 1700 1852 1248 Output Total 850 1900 2346 1100 Balance 8181 -002 -361 148 Meds/Results Medications: Active Medications Generic Name Dose Route Start Last Admin Trade Name Freq PRN Reason Stop Dose Admin Acetaminophen 650 mg 10/20/24 11:50 10/24/24 13:32 Acetaminophen Elixir 325 Mg/10.15 Ml Udc FEED TUBE 650 mg Q4H PRN Administration Pain Rated 5 or Less or Fever Acetaminophen 1,000 mg 10/20/24 21:00 10/23/24 21:05 Acetaminophen Elixir 325 Mg/10.15 Ml Udc FEED TUBE 1,000 mg HS CHRISTINE Administration Albuterol 2 puff 10/17/24 16:20 Albuterol Sulfate (*Sp) Aerosol 1 Puff INHALATION QID PRN Shortness Of Breath/Wheezing Artificial Tears 1 drop 10/22/24 11:16 10/22/24 11:45 Artificial Tears Ophth Soln 15 Ml Bottle EACH EYE 1 drop QID PRN Administration Dry Eye(s) Aspirin 81 mg 10/19/24 15:45 10/24/24 09:38 Aspirin 81 Mg Chewable Tablet FEED TUBE 81 mg DAILY@0800 CHRISTINE Administration Bumetanide 2 mg 10/19/24 15:45 10/24/24 09:38 Bumetanide 1 Mg Tablet FEED TUBE 2 mg DAILY CHRISTINE Administration Carbamazepine 200 mg 10/19/24 15:45 10/24/24 09:38 Carbamazepine 200 Mg Tablet FEED TUBE 200 mg Q12HR CHRISTINE Administration Carbidopa/Levodopa 2 tablet 10/19/24 18:00 10/24/24 13:32 Carbidopa/Levodopa 25/100 Mg Tablet FEED TUBE 2 tablet CHRISTINE Administration Clopidogrel Bisulfate 75 mg 10/19/24 15:45 10/24/24 09:38 Clopidogrel Bisulfate 75 Mg Tablet FEED TUBE 75 mg QAM CHRISTINE Administration Cyanocobalamin 1,000 mcg 10/21/24 09:00 10/24/24 09:38 Cyanocobalamin 1,000 Mcg Tablet FEED TUBE 1,000 mcg QAM CHRISTINE Administration Enoxaparin Sodium 40 mg 10/22/24 09:00 10/24/24 09:39 Enoxaparin 40 Mg/0.4 Ml Syringe SUB-Q 40 mg DAILY CHRISTINE Administration Famotidine 20 mg 10/19/24 21:00 10/24/24 09:38 Famotidine 20 Mg Tablet FEED TUBE 20 mg Q12HR CHRISTINE Administration Finasteride 5 mg 10/20/24 09:00 10/24/24 09:38 Finasteride 5 Mg Tablet FEED TUBE 5 mg DAILY CHRISTINE Administration Fluticasone Propionate 1 spray 10/22/24 14:20 10/24/24 09:39 Fluticasone Propionate 0.05% Na Spr 16 Gm Btl (*Bkc) NASAL 1 spray Q12HR CHRISTINE Administration Gabapentin 300 mg 10/19/24 17:00 10/24/24 13:32 Gabapentin 300 Mg Capsule FEED TUBE 300 mg QID CHRISTINE Administration Hydroxychloroquine Sulfate 400 mg 10/19/24 15:50 10/24/24 09:38 Hydroxychloroquine Sulfate 200 Mg Tablet FEED TUBE 400 mg DAILY CHRISTINE Administration Levothyroxine Sodium 75 mcg 10/20/24 06:30 10/23/24 09:07 Levothyroxine Sodium 75 Mcg Tablet FEED TUBE 75 mcg DAILY@0630 CHRISTINE Administration Melatonin 15 mg 10/19/24 21:00 10/23/24 21:10 Melatonin 5 Mg Tablet FEED TUBE 15 mg HS CHRISTINE Administration Morphine Sulfate 2 mg 10/17/24 12:17 10/24/24 00:50 Morphine Sulfate (*Crx) 2 Mg/Ml Inj IV PUSH 2 mg Q2H PRN Administration Pain Rated 6 or Greater Nitroglycerin 0.4 mg 10/17/24 15:46 Nitroglycerin Sl 0.4 Mg Tablet SUBLINGUAL PRN PRN Chest Pain Ondansetron HCl 4 mg 10/17/24 12:17 Ondansetron Inj 4 Mg/2 Ml Vial IV PUSH Q4H PRN Nausea Pantoprazole Sodium 40 mg 10/17/24 21:00 10/19/24 11:45 Pantoprazole 40 Mg Tablet PO Not Given Q12HR [facility] Pantoprazole Sodium 40 mg 10/19/24 21:00 10/24/24 09:38 Pantoprazole Sodium Iv 40 Mg Vial IV PUSH 40 mg Q12HR CHRISTINE Administration Phenol 1 spray 10/22/24 14:18 Phenol/Sod Pheno [place] (*Bkc) MUCOUS MEM PRN PRN Sore Throat Polyethylene Glycol 17 gm 10/21/24 09:00 10/24/24 09:39 Polyethylene Glycol 3350 17 Gm Powd.Pack FEED TUBE 17 gm DAILY CHRISTINE Administration Ropinirole HCl 1 mg 10/22/24 11:15 10/24/24 13:32 Ropinirole Hcl 1 Mg Tablet FEED TUBE 1 mg Q4HR CHRISTINE Administration Fluticasone/Salmeterol 2 puff 10/17/24 20:00 10/24/24 08:11 Fluticasone/Salmeterol 115-21 Mcg Inhaler 1 Puff INHALATION 2 puff Q12HRT CHRISTINE Administration Tamsulosin HCl 0.4 mg 10/17/24 21:00 10/18/24 20:38 Tamsulosin Hcl 0.4 Mg Capsule PO 0.4 mg HS CHRISTINE Administration Radiology Results: ITS Impressions Chest X-Ray 10/17/24 09:55 Impression: Clear lungs. Status post CABG. Modified Barium Swallow 10/24/24 10:41 IMPRESSION: Dysphagia with laryngeal penetration and aspiration. Please correlate with speech pathologist findings and specific feeding recommendations. Labs Labs: Laboratory Results - last 24 hr 10/23/24 10/24/24 10/24/24 18:08 00:45 05:18 WBC 8.2 RBC 3.74 L Hgb 12.2 L Hct 37.4 L MCV 100.0 MCH 32.6 MCHC 32.6 RDW 12.6 Plt Count 164 MPV 11.2 H Immature Gran % (Auto) 0.5 Neut % (Auto) 72.3 Lymph % (Auto) 9.3 L [place] % (Auto) 12.5 H Eos % (Auto) 4.9 H Baso % (Auto) 0.5 Lymph # (Auto) 0.76 L [place] # (Auto) 1.0 H Eos # (Auto) 0.4 H Baso # (Auto) 0.0 Abs Immat Gran (auto) 0.04 H Absolute Neuts (auto) 5.9 Absolute Nucleated RBC 0.000 Nucleated RBC % 0.0 Sodium 132 L Potassium 4.7 Chloride 98 Carbon Dioxide 26 Anion Gap 8 BUN 30 H Creatinine 0.84 Estim Creat Clear Calc 51 Estimated GFR > 60 Glucose 92 POC Capillary Glucose 116 H 149 H Calcium 8.7 Magnesium 2.4 H Total Bilirubin 0.6 AST 53 ALT 20 Alkaline Phosphatase 161 H Total Protein 6.4 Albumin 3.6 10/24/24 10/24/24 10/24/24 06:24 08:19 11:52 WBC RBC Hgb Hct MCV MCH MCHC RDW Plt Count MPV Immature Gran % (Auto) Neut % (Auto) Lymph % (Auto) [place] % (Auto) Eos % (Auto) Baso % (Auto) Lymph # (Auto) [place] # (Auto) Eos # (Auto) Baso # (Auto) Abs Immat Gran (auto) Absolute Neuts (auto) Absolute Nucleated RBC Nucleated RBC % Sodium Potassium Chloride Carbon Dioxide Anion Gap BUN Creatinine Estim Creat Clear Calc Estimated GFR Glucose POC Capillary Glucose 137 H 139 H 157 H Calcium Magnesium Total Bilirubin AST ALT Alkaline Phosphatase Total Protein Albumin
[2024-10-24 16:53] LABS: Glucose Point of Care 131 mg/dl (65-105)
[2024-10-24] MEDS: MELATONIN 5 MG TABLET 15 MG FEED TUBE (21:16)
[2024-10-24] MEDS: ACETAMINOPHEN ELIXIR 325 MG/10.15 ML UDC 1000 MG FEED TUBE (21:17)
[2024-10-25] VITALS: PULSE 60
[2024-10-25] MEDS: rOPINIRole HCL 1 MG TABLET FEED TUBE ×4 (01:37→13:44)
[2024-10-25] MEDS: MORPHINE SULFATE (*CRX) 2 MG/ML INJ IV PUSH (01:40)
[2024-10-25 04:00] VITALS: PULSE 59
[2024-10-25 05:47] LABS: Basophils Percent Auto 0.3 % (0.2-1.2); Eosinophils Absolute Auto 0.5 K/mm3 (0-0.3); Hematocrit 37.9 % (42.0-52.0); Hemoglobin 12.5 g/dL (14.0-18.0); Immature Granulocyte Absolute 0.03 K/mm3 (0.00-0.031); Immature Granulocyte Percent A 0.4 % (0-0.5); Lymphocytes Absolute Auto 0.96 K/mm3 (0.9-3.2); Lymphocytes Percent Auto 12.8 % (18.3-44.2); Mean Corpuscular Hemoglobin 32.6 pg (26-34); Mean Platelet Volume 10.8 fl (7.4-10.4); Monocytes Absolute Auto 0.9 K/mm3 (0.1-0.6); Monocytes Percent Auto 12.5 % (2.6-8.5); Neutrophils Absolute Auto 5.1 K/mm3 (1.3-6.7); Platelet Count Result 173 k/mm3 (150-375); Red Blood Count 3.83 M/mm3 (4.6-6.20); Red Cell Distribution Width 12.4 % (11.5-14.5); White Blood Count 7.5 K/mm3 (4.5-10.0)
[2024-10-25] MEDS: LEVOTHYROXINE SODIUM 75 MCG TABLET FEED TUBE (05:55)
[2024-10-25 06:00] VITALS: BP 140/59; PULSE 74; RESP 18; TEMP 36.7; O2SAT 98
[2024-10-25 06:40] LABS: Glucose Point of Care 123 mg/dl (65-105)
[2024-10-25 08:12] LABS: Glucose Point of Care 134 mg/dl (65-105)
[2024-10-25] MEDS: FLUTICASONE/SALMETEROL 115-21 MCG INHALER 1 PUFF 2 PUFF INHALATION (08:53)
[2024-10-25 08:54] VITALS: O2SAT 98
[2024-10-25] MEDS: ENOXAPARIN 40 MG/0.4 ML SYRINGE SUB-Q (09:05)
[2024-10-25] MEDS: BUMETANIDE 1 MG TABLET 2 MG FEED TUBE (09:05)
[2024-10-25] MEDS: CLOPIDOGREL BISULFATE 75 MG TABLET FEED TUBE (09:05)
[2024-10-25] MEDS: FAMOTIDINE 20 MG TABLET FEED TUBE (09:06)
[2024-10-25] MEDS: ASPIRIN 81 MG CHEWABLE TABLET FEED TUBE (09:06)
[2024-10-25] MEDS: FINASTERIDE 5 MG TABLET FEED TUBE (09:06)
[2024-10-25] MEDS: carBAMazepine 200 MG TABLET FEED TUBE (09:06)
[2024-10-25] MEDS: PANTOPRAZOLE SODIUM IV 40 MG VIAL IV PUSH (09:06)
[2024-10-25] MEDS: HYDROXYCHLOROQUINE SULFATE 200 MG TABLET 400 MG FEED TUBE (09:06)
[2024-10-25] MEDS: GABAPENTIN 300 MG CAPSULE FEED TUBE ×2 (09:06→13:44)
[2024-10-25] MEDS: CYANOCOBALAMIN 1,000 MCG TABLET 1000 MCG FEED TUBE (09:06)
[2024-10-25] MEDS: polyethylene glycoL 3350 17 GM POWD.PACK FEED TUBE (09:07)
[2024-10-25] MEDS: CARBIDOPA/LEVODOPA 25/100 MG TABLET 2 TABLET FEED TUBE ×2 (09:18→13:44)
[2024-10-25] MEDS: FLUTICASONE PROPIONATE 0.05% NA SPR 16 GM BTL (*BKC) 1 SPRAY NASAL (09:23)
[2024-10-25 11:57] LABS: Glucose Point of Care 185 mg/dl (65-105)
--- NOTE | 2024-10-25 12:11 | PCNFU ---
Nutrition Follow-Up Complete: Inability to meet estimated nutrition needs PO related to dysphagia as evidenced by need for full tube feeding Goal:Meet estimated nutrition needs Pt current nutrition is Jevity 1.5 @ 60ml/hr. Nutrition recommendation: continue with tube feeding as ordered Last recorded weight is 80.2 kg. Bowel Motility: +BM 10/24 Labs Reviewed: Hgb:12.5, HCt:37.9, NA:132, BUN:30, M.4 Meds Noted: bumex, miralax, protonix, lovenox Skin: WNL Additional Notes: Pt tolerating tube feeding, running at goal. Providing 1980kcals, 84g protein, 1903ml free water total with 150ml flush q 4 hrs. Nursing reports pt tolerating well. and pt stated while in room pt wishes to go hospice care and remove the tube so he can eat via PO. Will monitor status. Monitor tube feeding orders, rate, tolerance, output, labs, weights Follow up Thursday/Thursday
[2024-10-25 13:43] VITALS: BP 152/71; PULSE 70; RESP 18; TEMP 36.7; O2SAT 98
--- NOTE | 2024-10-25 14:17 | P.DS_ITS ---
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: Code(s): I44.1 - Atrioventricular block, second degree Status: Acute (3) Parkinson's disease: Code(s): G20 - Parkinson's disease Status: Chronic (4) Obstructive sleep apnea: Code(s): G47.33 - Obstructive sleep apnea (adult) (pediatric) Status: Chronic (5) Hypertension: Code(s): I10 - Essential (primary) hypertension Status: Chronic (6) Hypothyroidism: Code(s): E03.9 - Hypothyroidism, unspecified Status: Chronic (7) Gastroesophageal reflux disease: Code(s): K21.9 - Gastro-esophageal reflux disease without esophagitis Status: Chronic (8) Dysphagia: Code(s): R13.10 - Dysphagia, unspecified Status: Chronic (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: Code(s): J43.9 - Emphysema, unspecified; J98.4 - Other disorders of lung Status: Chronic (10) CKD (chronic kidney disease): Code(s): N18.9 - Chronic kidney disease, unspecified Status: Acute DS: Summary Hospital Course Hospital Course: This is an 84-year-old male patient who was admitted to the hospital for chest pain. Patient reports sitting down to drink coffee and watch the news when he developed sudden onset of left-sided chest pain that radiated to the left arm that he described as a burning sensation 02/17 on arrival. Patient took 325 mg of aspirin at home before coming to the ER. He received IV morphine in the ER which did not help and then nitropaste was applied to the right chest 1 inch which subsequently stopped the pain. Initial troponin was normal in the ER. Chest x-ray was also normal in ER. Subsequent troponin level significantly elevated to 15.[address] elevation [place]. Patient underwent cardiac catheterization which showed most of the vessels patent RCA was heavily calcified and PAGAN was difficult to visualize. Echo with normal LV function EF 65-70% and grade 1 diastolic dysfunction. Medical management with dual antiplatelet therapy short-term planned along with long- acting nitroglycerin. No further chest pain History of recurrent aspiration pneumonias He was found to have Dysphagia failed MBS. NG in place and tube feed ongoing. Repeat MBS performed on 10/24/2024 which he failed again with not much change. Discussed with the patient regarding G-tube placement which he refuses and furthermore hospice was arranged. Throat discomfort/hoarseness of voice could be due to NG place. Added Flonase for postnasal drip. Chloraseptic p.r.n. given Restless leg syndrome on Requip Frequent falls Parkinson's disease Peripheral neuropathy CAD and 4 vessel CABG in 2016. CKD stage III Rheumatoid arthritis Hypothyroidism Congestive heart failure diastolic MADDIE on BiPAP DVT prophylaxis start Lovenox Code status full code Time Spent with Patient Time attestation: Total time spent providing and/or coordinating discharge services: 35 minutes Exam Narrative: Patient is comfortable, NAD HEENT: eyes are clear and none icteric NG in place LUNGS:CTA HEART: RR S1S2 ABD: BS+, Soft and nontender Lower extremities: no edema SKIN: nonjaundiced Neuro: grossly intact. DS: Data Data Completed and Pending Completed studies during hospitalization: Exam Type: CA echo dop color flow w con Complete two-dimensional, color flow and Doppler transthoracic echocardiogram is performed with contrast to opacify the left ventricle and to improve the deliniation of the left ventricle endocardial borders. Staff Referring Physician: Ese Cabello MD It Sales Consultant: Ebony Ovalle Attending Provider: Hany Alvarado Contrast/Agitated Saline Contrast/Ag. Saline: Definity Amount: 2.00 ml Administered By: Ebony Ovalle Existing IV Access: Yes Summary 1. Left ventricular chamber dimension is normal. 2. Left ventricular systolic function is normal, estimated at 65-70. 3. There is mildly increased left ventricular wall thickness. 4. The left ventricular diastolic function is grade I diastolic dysfunction. 5. Right ventricular systolic function is normal. 6. There is moderate mitral valve regurgitation, which may be underestimated due to eccentricity of the jet. 7. There is mild tricuspid valve regurgitation. Left Ventricle Left ventricular chamber dimension is normal. Left ventricular systolic function is normal, estimated at 65-70. There is mildly increased left ventricular wall thickness. Left ventricular septal wall motion is abnormal with septal motion related to a post-operative state. The left ventricular diastolic function is grade I diastolic dysfunction. Right Ventricle Right ventricular chamber dimension is normal. Right ventricular systolic function is normal. Left Atria Left atrial chamber dimension is normal. Right Atria Right atrial chamber dimension is normal. Atrial Septum Intact interatrial septum visualized by color flow imaging. Aortic Valve The aortic valve is trileaflet. There is no aortic valve stenosis. There is trace aortic valve regurgitation. Pulmonic Valve The pulmonic valve is not well visualized. Mitral Valve There is moderate mitral valve regurgitation, which may be underestimated due to eccentricity of the jet. The mitral valve annulus is moderately calcified. Tricuspid Valve There is mild tricuspid valve regurgitation. Pericardium/Pleural There is no pericardial effusion. Inferior Vena Cava Normal inferior vena cava with <50% collapse upon inspiration consistent with elevated right atrial pressure, 8 mmHg. Aorta The aortic root size at the sinus of Valsalva is normal. Labs on day of discharge: Labs from last 24 hours 10/25/24 10/25/24 10/25/24 11:43 08:08 05:22 WBC 7.5 RBC 3.83 L Hgb 12.5 L Hct 37.9 L MCV 99.0 MCH 32.6 MCHC 33.0 RDW 12.4 Plt Count 173 MPV 10.8 H Immature Gran % (Auto) 0.4 Neut % (Auto) 68.0 Lymph % (Auto) 12.8 L Howard % (Auto) 12.5 H Eos % (Auto) 6.0 H Baso % (Auto) 0.3 Lymph # (Auto) 0.96 Howard # (Auto) 0.9 H Eos # (Auto) 0.5 H Baso # (Auto) 0.0 Abs Immat Gran (auto) 0.03 Absolute Neuts (auto) 5.1 Absolute Nucleated RBC 0.000 Nucleated RBC % 0.0 POC Capillary Glucose 185 H 134 H 10/25/24 10/24/24 00:41 16:49 WBC RBC Hgb Hct MCV MCH MCHC RDW Plt Count MPV Immature Gran % (Auto) Neut % (Auto) Lymph % (Auto) Howard % (Auto) Eos % (Auto) Baso % (Auto) Lymph # (Auto) Howard # (Auto) Eos # (Auto) Baso # (Auto) Abs Immat Gran (auto) Absolute Neuts (auto) Absolute Nucleated RBC Nucleated RBC % POC Capillary Glucose 123 H 131 H Procedures/Treatments: Cardiac Cath Procedure Note Date of procedure:: 10/18/24 Performing physician:: CATHETERIZATION LABORATORY REPORT Procedure Date: 10/18/2024 Personnel Placement Specialist: James Díaz M.D., [facility]? Referring Physician: Dr. Toro ? Anesthesia: Versed and Fentanyl were ordered and given in my presence at 10:38, procedure ended at 11:25. Supervision of nurse monitored moderate sedation with Versed and Fentanyl was provided for 47 minutes. Total of Versed 1mg and Fentanyl 50mcg were administered by the Guard Driver RN Velia Travis. Pre-op Diagnosis: Coronary artery disease s/p CABG Post-op Diagnosis: 1. [place] coronary artery disease as noted below. The RPLV branch (which is unrevascularized with a graft) has a 99% stenosis in the mid portion; RPLV is a heavily calcified artery. Given branch vessel disease, recommend medical management. 2. SVG to RPDA. 3. Patent SVG to OM 4. Patent SVG to Diagonal 5. Unable to visualize the PAGAN due to difficulty in advancing catheter into the left subclavian artery, however, there is retrograde flow into the PAGAN upon angiograms of the SVG-Diagonal, therefore, PAGAN appears to be patent. Recommend outpatient coronary CTA for full delineation and evaluation of the PAGAN. 6. LVEDP 15mmHg. Procedure(s): 1. Moderate sedation 2. Ultrasound-guided access of the right common femoral artery 3. Coronary angiography 4. Bypass graft angiography 5. Left heart cath Access Site: Right common femoral artery Brief History and Clinical Indications: Patient is an 84 year old male with CAD s/p CABG who is referred for [facility] for NSTEMI. All risks, benefits and alternatives to left heart catheterization with or without percutaneous coronary intervention was discussed at length with the patient. Risk of complications including but not limited to bleeding, infection, arrhythmia, stroke, worsening kidney function, blood loss, groin hematoma, limb loss, emergency coronary artery bypass grafting, and even were discussed with the patient and all questions were answered. The patient understood and wished to proceed. Time out called, patient name, date of , medical record number, allergies, procedure performed, identify Personnel Placement Specialist, patient and staff member concurred with accurate data, procedure carried on. Findings: LEFT HEART CATHETERIZATION FINDINGS: 1. Left main: The left main coronary artery is widely patent without any significant obstructive disease. 2. Left anterior descending: There is significant ostial LAD disease. The LAD has a 99% long stenosis in the mid portion. Competitive filling is seen in the distal LAD, along in the second diagonal branch. 3. Left circumflex: There is moderate 60-70% proximal LCX stenosis. 4. Right coronary artery: The RCA is the dominant vessel. The RCA is heavily calcified. The proximal RCA has a heavily calcified moderate stenosis. The mid portion has diffuse mild disease. The distal RCA has a moderate stenosis. The RPLV is a heavily calcified branch with a 99% stenosis in the mid portion. Competitive filling is seen in the mid portion of the RPDA. 5. Bypass grafts: Patent SVG to RPDA. Patent SVG to OM Patent SVG to Diagonal Unable to visualize the PAGAN due to difficulty in advancing catheter into the left subclavian artery, however, there is retrograde flow into the PAGAN upon angiograms of the SVG-Diagonal, therefore, PAGAN appears to be patent. Recommend outpatient coronary CTA for full delineation and evaluation of the PAGAN. 6. Left ventricle: A. End-diastolic pressure 15 mmHg. B. LV gram deferred. C. No significant gradient across aortic valve on catheter pullback. Description of Procedure: Informed consent signed and placed in the chart. Patient transferred to blood and plasma laboratory assistant room. Prepped and draped in usual sterile fashion. 2% lidocaine in right groin area. Micropuncture needle used to access right common femoral artery with Seldinger technique under fluoroscopic and ultrasound guidance. J wire advanced, micropuncture cannula placed. Right iliofemoral angiogram performed, access confirmed and micropuncture cannula exchanged for 5-FR sheath. Given the iliac tortuosity, a 5F 45cm sheath was placed. 5F FL 4 diagnostic catheter engaged Left Main Coronary Artery. 5F FR 4 diagnostic catheter engaged Right Coronary Artery. 5F FR 4 diagnostic catheter engaged in SVG to PDA graft. 5F FR 4 diagnostic catheter engaged in the SVG to Diagonal graft. 5F FR 4 diagnostic catheter engaged in the SVG to OM graft. Attempted to advance 5F FR 4 diagnostic catheter into the left subclavian, however, there was difficulty in getting catheter into the left subclavian, and the J-wire would not advance into the subclavian. After multiple attempts, aborted further attempts. Multiple orthogonal angiogram obtained and reviewed 5F Pigtail diagnostic catheter crossed aortic valve to obtain LVEDP, LV angiogram deferred. Hemostasis was achieved by manual pressure. Disposition: Floor Plan: The patient will be monitored in the recovery area. Recommend medical management for NSTEMI. Continue aggressive medical therapy and risk factor modification. ? James Díaz M.D. Interventional Cardiology Imaging Radiologist's impression: ITS Impressions Chest X-Ray 10/17/24 09:55 Impression: Clear lungs. Status post CABG. Modified Barium Swallow 10/19/24 11:08 IMPRESSION: Pharyngeal dysphagia with laryngeal penetration and trace aspiration with all trials. Please correlate with speech pathologist findings and specific feeding recommendations. Modified Barium Swallow 10/24/24 10:41 IMPRESSION: Dysphagia with laryngeal penetration and aspiration. Please correlate with speech pathologist findings and specific feeding recommendations. Discharge Plan Discharge Attending physician on discharge: Obed Bond Consulting providers: Geovani Toro Discharging Clinician: Obed Bond Anticipated Discharge Date/Time: 10/25/24 14:26 Patient Disposition: Hospice - Home Activity: as tolerated Diet: as tolerated Patient Language: Nigerian Stand Alone Forms: General Discharge Information Follow-up/Referrals: Neyda Ba APRN [Primary Care Provider] - 1 Week Discharge Medications: New clopidogrel 75 mg Tablet 75 mg PO QAM Qty: 30 0RF fluticasone propionate 50 mcg/actuation [place],Suspension 1 spray intranasal Q12HR Qty: 30 0RF Continued carbidopa-levodopa 25-100 mg tablet 2 tablet PO TID ropinirole 1 mg tablet 1 mg PO .COMPLEX Rx Instructions: orally- 1 mg pill 0700, 1 mg pill 1530, 2 mg pill 2200 gabapentin 300 mg capsule 300 mg PO QID tamsulosin 0.4 mg capsule 0.4 mg PO HS hydroxychloroquine [Plaquenil] 200 mg tablet 400 mg PO DAILY Qty: 180 1RF finasteride 5 mg tablet 5 mg PO DAILY aspirin [Aspir-Low] 81 mg tablet,delayed release (DR/EC) 81 mg PO QHS bumetanide 1 mg tablet 2 mg PO DAILY nitroglycerin 0.4 mg tablet, sublingual 0.4 mg sublingual PRN PRN (Reason: Chest Pain) cyanocobalamin (vitamin B-12) [Vitamin B-12] 1,000 mcg Tablet 1,000 mcg PO QAM Qty: 30 0RF polyethylene glycol 3350 [Miralax] 17 gram powder in packet 17 g PO DAILY acetaminophen 500 mg tablet 1,000 mg PO HS melatonin 3 mg capsule 18 mg PO DAILY Patient Comments: Confirmed with daughter carbamazepine 200 mg tablet 200 mg PO Q12H Qty: 60 1RF levothyroxine 75 mcg tablet 75 mcg PO DAILY Qty: 90 1RF fluticasone propion-salmeterol 113-14 mcg/actuation aerosol powdr breath activated 1 inh inhalation BID Qty: 1 3RF Rx Instructions: Rinse mouth and spit after each use pantoprazole 40 mg tablet,delayed release (DR/EC) 40 mg PO BID 90 Days Qty: 180 3RF famotidine 20 mg tablet 20 mg PO BID 90 Days Qty: 180 3RF albuterol sulfate 90 mcg/actuation HFA aerosol inhaler See Rx Instructions .ROUTE .COMPLEX Qty: 8.5 0RF Dose Instruction: INHALE 1 TO 2 PUFFS BY MOUTH EVERY 4 TO 6 HOURS NEEDED FOR SHORTNESS OF BREATH OR WHEEZING Rx Instructions: INHALE 1 TO 2 PUFFS BY MOUTH EVERY 4 TO 6 HOURS NEEDED FOR SHORTNESS OF BREATH OR WHEEZING Date of admission: 10/17/24 14:58 Primary Care Provider: Neyda aB Admitting Provider: Hany Alvarado Attending physician on admission: Hany Alvarado Condition: Guarded Prognosis
== END 2024-10-25 14:55 | disposition hospice, home (50) | DRG 281 ==
LOC: ANHED 10:07 → ANHIMU 12:57 → ANH3MED 10-20 22:52
PROVIDERS: Internal Medicine; Internal Medicine Cardiovascular Disease; Nurse Practitioner; Admitting Provider General Practice; Emergency Provider General Practice; PCP Nurse Practitioner Family; Visit Provider Internal Medicine
PROC: 4A023N7 Measurement of Cardiac Sampling and Pressure, Left Heart, Percutaneous Approach (ICD-10-PCS; CPT 93459; principal; 2024-10-18 10:00)
DX: I21.4 Non-ST elevation (NSTEMI) myocardial infarction (principal); I13.0 Hypertensive heart and chronic kidney disease with heart failure and stage 1 through stage 4 chronic kidney disease, or unspecified chronic kidney disease; I50.32 Chronic diastolic (congestive) heart failure; R13.10 Dysphagia, unspecified; E03.9 Hypothyroidism, unspecified; G47.33 Obstructive sleep apnea (adult) (pediatric); G25.81 Restless legs syndrome; G20.A1 Parkinson's disease without dyskinesia, without mention of fluctuations; G62.9 Polyneuropathy, unspecified; I25.10 Atherosclerotic heart disease of native coronary artery without angina pectoris; I44.1 Atrioventricular block, second degree; J43.9 Emphysema, unspecified; K21.9 Gastro-esophageal reflux disease without esophagitis; K22.70 Barrett's esophagus without dysplasia; M06.9 Rheumatoid arthritis, unspecified; N40.0 Benign prostatic hyperplasia without lower urinary tract symptoms; N18.30 Chronic kidney disease, stage 3 unspecified; R29.6 Repeated falls; Z95.1 Presence of aortocoronary bypass graft; Z99.89 Dependence on other enabling machines and devices; Z90.49 Acquired absence of other specified parts of digestive tract; Z98.41 Cataract extraction status, right eye; Z98.42 Cataract extraction status, left eye; Z96.1 Presence of intraocular lens; Z87.891 Personal history of nicotine dependence; Z79.82 Long term (current) use of aspirin; Z79.02 Long term (current) use of antithrombotics/antiplatelets
CPT/HCPCS: 36415; 71046; 80053; 82948; 83036; 83690; 83735; 84484; 85025; 85055; 85610; 85730; 92526; 92610; 92611; 93005; 93459; 94640; 96374; 96375; 96376; 97110; 97162; 97166; 97530; 97535; 99285; A9270; C1769; C1887; C1894; C8929; G0378; J1644; J1650; J2003; J2250; J2270; J2405; J2470; J3010; J7040; Q9957